=== PATIENT | female | born 1955 | race Caucasian/White ===

== ENCOUNTER → 2022-03-08 15:57 | Outpatient (CLI) | payer MEDICARE, SELFPAY ==
--- NOTE | ~2022-03-08 | XR_ITS ---
XR abdomen/kub 1V 03/08/2022 17:14 INDICATION: Constipation TECHNIQUE: KUB COMPARISON: None FINDINGS: Bowel gas pattern is normal. There are cholecystectomy clips. There are splenic arterial ca lcifications. Moderate colonic fecal loading. Mild lumbar spondylosis. There is no evidence of free a ir, mass, organomegaly, ascites or obstruction. No abnormal calculi are seen. The bones appear inta ct. IMPRESSION: 1: No acute abdominal abnormality identified. Reviewed, dictated and finalized at location A.
== END ==
DX: K59.00 Constipation, unspecified (principal)
CPT/HCPCS: 74018

== ENCOUNTER 2022-06-28 10:49 | Outpatient (CLI) | payer MEDICARE, SELFPAY ==
--- NOTE | ~2022-06-28 | XR_ITS ---
Left Shoulder Technique: AP and scapular Y and axillary views were obtained. Clinical History: Pain Findings: No fracture or dislocation is seen. Osseous alignment is anatomic. The glenohumeral and acr omioclavicular joint spaces are preserved. Soft tissues are unremarkable. Impression: Unremarkable left shoulder radiographs. Reviewed, dictated and finalized at [facility]. LCANIZER CHARGER Impression: Unremarkable left shoulder radiographs.
--- NOTE | ~2022-06-28 | XR_ITS ---
Lumbosacral Spine: AP and lateral views Clinical History: Pain Findings: The normal lordotic curve is maintained. The vertebral bodies and posterior elements are i ntact. The intervertebral disc spaces are preserved. The sacroiliac joints are normally outlined. Impression: No significant abnormality. Reviewed, dictated and finalized at [facility]. ILE PAD MECHANIC Impression: No significant abnormality.
--- NOTE | ~2022-06-28 | XR_ITS ---
Cervical Spine: AP, lateral, open-mouth views Clinical History: Pain Findings: The normal lordotic curve is maintained. Minimal grade 1 anterolisthesis of C4 over C5 pres ent. There are minimal degenerative disc changes throughout the cervical spine. Facet joint degenerat krystal changes are present, most notably at C3-C4 and C4-C5. No fracture identified. Pre-vertebral soft tissues are unremarkable. Impression: Mild degenerative spondylosis, as above. Minimal grade 1 anterolisthesis of C4 over C5. Reviewed, dictated and finalized at location M. HELP DESK OFFICER Impression: Mild degenerative spondylosis, as above. Minimal grade 1 anterolisthesis of C4 over C5.
--- NOTE | ~2022-06-28 | XR_ITS ---
Right Shoulder Technique: AP and scapular Y views were obtained. Clinical History: Pain Findings: No fracture or dislocation is seen. Osseous alignment is anatomic. The glenohumeral and acr omioclavicular joint spaces are preserved. Soft tissues are unremarkable. Impression: Unremarkable right shoulder radiographs. Reviewed, dictated and finalized at [facility]. LLIGENCE INTERN Impression: Unremarkable right shoulder radiographs.
--- NOTE | ~2022-06-28 | XR_ITS ---
Right Knee Technique: AP, lateral, and sunrise views were obtained. Clinical History: Pain Findings: No fracture or dislocation is seen. There is a lytic area at the posterior margin of the up per patella on the lateral view.. Soft tissues are unremarkable. No joint effusion is seen. Impression: Lytic area at the posterior aspect of the superior patella on lateral view. This is somewhat indeterm inate, but aggressive lesion cannot be excluded. Pre and postcontrast MR recommended to best assess t he underlying marrow signal characteristics and soft tissue structures in this region. Reviewed, dictated and finalized at location M. TENANCE DATA ANALYST Impression: Lytic area at the posterior aspect of the superior patella on lateral view. Thi s is somewhat indeterminate, but aggressive lesion cannot be excluded. Pre and postcontrast MR recommended to best assess the underlying marrow signal charact eristics and soft tissue structures in this region.
--- NOTE | ~2022-06-28 | XR_ITS ---
Thoracic spine: Clinical Indication: Back pain AP and lateral views were performed. No fracture is seen. There is normal alignment of the vertebrae. The intervertebral disc spaces appe ar normal. Paravertebral soft tissues appear normal. Impression: No significant abnormalities noted. Reviewed, dictated and finalized at [facility]. AL CONTROL LICENSING WORKER Impression: No significant abnormalities noted.
--- NOTE | ~2022-06-28 | XR_ITS ---
Left Knee Technique: AP and lateral views were obtained. Clinical History: Pain Findings: No fracture or dislocation is seen. Osseous alignment is anatomic. Joint spaces are preserv ed without degenerative or erosive change. Soft tissues are unremarkable. No joint effusion is seen. Impression: Unremarkable left knee radiographs. Reviewed, dictated and finalized at location . ANICS HANDYMAN Impression: Unremarkable left knee radiographs.
== END 2022-06-28 10:50 ==
LOC: MICIMG 10:52
PROVIDERS: PCP Family Medicine; Visit Provider Pain Medicine Interventional Pain Medicine
DX: E11.49 Type 2 diabetes mellitus with other diabetic neurological complication (principal); E11.59 Type 2 diabetes mellitus with other circulatory complications; F33.1 Major depressive disorder, recurrent, moderate; F41.1 Generalized anxiety disorder; M47.22 Other spondylosis with radiculopathy, cervical region
CPT/HCPCS: 72040; 72072; 72100; 73030; 73560

== ENCOUNTER 2022-06-28 11:51 | Outpatient (CLI) | payer MEDICARE, SELFPAY ==
--- NOTE | ~2022-06-28 | CT_ITS ---
EXAMINATION: CT sinus wo con DATE: 06/28/2022 12:12 INDICATION: Deviated nasal septum. TECHNIQUE: Computed tomography (CT) of the paranasal sinuses was performed without intravenous contra st. Iterative reconstruction technique was employed. The dose-length product was 288.85 mGy-cm. COMPARISON: Neck CT 07/18/2005 FINDINGS: The frontal sinuses are clear. There is mild mucosal thickening in the bilateral ethmoid si nuses. There are old blowout fractures of medial wall and floor of left orbit. The sphenoid sinuses a re clear. The maxillary sinuses are clear. The ostiomeatal units are widely patent. There is leftward deviation of the nasal septum. There are rightward and leftward spurs of the nasal septum. There is a 12 x 10 mm mass in superficial left parotid gland. IMPRESSION: 1. Leftward deviation of the nasal septum. 2. Mild mucosal thickening in the paranasal sinuses. 3. Old blowout fractures of medial wall and floor of left orbit. 4. 12 x 10 mm mass in superficial left parotid gland. The differential diagnosis includes benign mixe d tumor, Warthin tumor, reactive lymph node, and less likely primary malignancy. Reviewed, dictated and finalized at location A. RAM DIRECTOR AIR TALENT IMPRESSION: 1. Leftward deviation of the nasal septum. 2. Mild mucosal thickening in the paranasal sinuses. 3. Old blowout fractures of medial wall and floor of left orbit. 4. 12 x 10 mm mass in superficial left parotid gland. The differential diagnosi s includes benign mixed tumor, Warthin tumor, reactive lymph node, and less lik aurelio primary malignancy.
== END 2022-06-28 11:52 ==
LOC: MICIMG 11:53
PROVIDERS: PCP Otolaryngology; Visit Provider Otolaryngology
DX: N63.22 Unspecified lump in the left breast, upper inner quadrant (principal); Z80.41 Family history of malignant neoplasm of ovary; J34.2 Deviated nasal septum
CPT/HCPCS: 70486

== ENCOUNTER 2022-06-28 12:05 | Outpatient (CLI) | payer MEDICARE, SELFPAY ==
--- NOTE | ~2022-06-28 | MMUS_ITS ---
EXAMINATION: MM diagnostic zahida BI w nain, US breast BI limited HISTORY: Palpable left breast mass. TECHNIQUE: Additional 3-D tomosynthesis images of the breasts were performed and synthetic 2-D images were generated. CAD analysis was submitted and interpreted. High resolution limited bilateral breast ultrasound was performed. COMPARISON: None BREAST PARENCHYMAL COMPOSITION: Breast composed of scattered areas of fibroglandular density FINDINGS: MAMMOGRAPHIC FINDINGS: There are focal asymmetries laterally in the right breast on CC view. There are benign breast calcifi cations. There is a mass in the lower inner quadrant of the left breast corresponding to the area of palpable concern. ULTRASOUND: Limited right breast ultrasound: At 10:00, 3 cm from the nipple there is an irregular shaped hypoecho ic mass with angular margins measuring 4 x 3 x 3 mm. No internal vascularity. There is antiparallel c onfiguration. Limited left breast ultrasound: At 10:00, 7 cm from the nipple there is an oval hypoechoic mass with heterogeneous internal echotexture, parallel orientation, no posterior features and no internal vascu larity measuring 1.8 x 1.5 x 0.9 cm. IMPRESSION: 1. Abnormal bilateral breast masses. 2. Bilateral ultrasound-guided breast biopsy recommended. BI-RADS category 4, suspicious findings. Reviewed, dictated and finalized at location A. ETIC EVENTS SCORER IMPRESSION: 1. Abnormal bilateral breast masses. 2. Bilateral ultrasound-guided breast biopsy recommended. BI-RADS category 4, suspicious findings.
== END 2022-06-28 12:06 ==
LOC: MICIMG 12:07
PROVIDERS: PCP Pain Medicine Interventional Pain Medicine; Visit Provider Family Medicine
DX: N63.22 Unspecified lump in the left breast, upper inner quadrant (principal); Z80.41 Family history of malignant neoplasm of ovary; R92.8 Other abnormal and inconclusive findings on diagnostic imaging of breast
CPT/HCPCS: 76642; 77062; 77066; G0279

== ENCOUNTER 2022-10-31 12:01 | Inpatient (IN) | payer OTHER, SELFPAY ==
[2022-10-31] VITALS (20 sets, daily range): BP systolic 146–203; BP diastolic 43–87; PULSE 78–98; RESP 12–23; TEMP 36–37.8; O2SAT 90–100; BMI 23.4
--- NOTE | ~2022-10-31 | CT_ITS ---
EXAMINATION: CT brain wo con DATE: 10/31/2022 12:52 INDICATION: Seizure activity. TECHNIQUE: Computed tomography (CT) of the head was performed without intravenous contrast. The mA wa s adjusted according to patient size. Iterative reconstruction technique was employed. The dose-lengt h product was 605.33 mGy-cm. COMPARISON: None FINDINGS: There are scattered areas of low attenuation in the cerebral white matter. There is no intr acranial hemorrhage, acute infarction, or abnormal intracranial mass lesion. The ventricles are danial l in size. There are likely changes of ocular lens replacement surgeries. There is an old blowout fra cture of medial wall of left orbit. There is mild mucosal thickening in the ethmoid sinuses. The mast oid air cells are normal. IMPRESSION: 1. Moderate nonspecific cerebral white matter disease, which likely represents chronic small vessel i schemic disease. Reviewed, dictated and finalized at location A. IMPRESSION: 1. Moderate nonspecific cerebral white matter disease, which likely represents chronic small vessel ischemic disease.
--- NOTE | ~2022-10-31 | CT_ITS ---
EXAMINATION: CT abdomen pelvis w con DATE: 10/31/2022 13:51 INDICATION: Right abdominal pain. TECHNIQUE: Computed tomography (CT) of the abdomen and pelvis was performed with 100 mL Omnipaque 350 intravenous contrast. Automated exposure control and iterative reconstruction technique were employe d. The dose-length product was 732.40 mGy-cm. COMPARISON: None. FINDINGS: The visualized portions of the lung bases demonstrate mild atelectasis. No pleural effusion . Cardiomegaly is noted. There are coronary artery calcifications. No pericardial effusion. There are surgical clips in right breast. The liver and spleen are normal. There are surgical changes of nika cystectomy. The pancreas and adrenal glands are normal. There are cysts in the kidneys measuring up t o 12 mm on the right. There are vascular calcifications at the merly of the kidneys. There is a 2 mm s tone in right kidney. There is a peritoneal dialysis catheter in right lower quadrant. There is diver ticulosis of the colon without evidence of diverticulitis. The appendix is stool-filled with diameter of 12 mm. The are widespread arterial calcifications. The stomach is distended and contains fluid an d gas. There is wall thickening of the pylorus. There is free intraperitoneal gas and anterior body w all gas from the recent dialysis catheter placement. There are no pathologically enlarged lymph nodes . Superficial to the rectus abdominis muscles, there is a 3.9 x 2.1 x 0.5 cm thick-walled fluid colle ction with wall calcifications. There is no free intraperitoneal fluid. There is severe lower lumbar spondylosis. IMPRESSION: 1. Appendiceal diameter of 12 mm, which is indeterminate for appendicitis. Correlate with physical ex am. 2. Wall thickening of the pylorus of the stomach suspicious for inflammation. 3. Small fluid collection in anterior abdominal wall, likely a seroma or old hematoma. Reviewed, dictated and finalized at location A. IMPRESSION: 1. Appendiceal diameter of 12 mm, which is indeterminate for appendicitis. Ruddy elate with physical exam. 2. Wall thickening of the pylorus of the stomach suspicious for inflammation. 3. Small fluid collection in anterior abdominal wall, likely a seroma or old he matoma.
--- NOTE | 2022-10-31 12:03 | ECG_ITS ---
Measurements Intervals [place] Rate: 81 P: 58 NV: 190 QRS: 26 QRSD: 97 T: 69 QT: 389 QTc: 452 Interpretive Statements SINUS RHYTHM THE INFEROLATERAL ST AND T-WAVE ABNORMALITY, CONSIDER ISCHEMIA ABNORMAL ECG NO PREVIOUS ECG AVAILABLE FOR COMPARISON Electronically Signed On 11-06-2022 12:06:09 CDT by Ramírez Motley M.D.
--- NOTE | 2022-10-31 12:17 | ED.SEIZURE ---
HPI - Seizure General Chief Complaint: Seizure Stated Complaint: seizure Time Seen by Provider: 10/31/22 12:02 History of Present Illness HPI Narrative: Patient is a 67-year-old female with a history of ESRD on dialysis presenting with vomiting and altered mental status. Patient's is at bedside and helps with the history. States that she has been very busy this last month with doctors appointments. States that she recently had a new peritoneal dialysis catheter placed at [facility]. States this was 2 days ago. Since that time she has had worsening right-sided abdominal pain. States that she has also been having coffee-ground emesis. States that she will just randomly vomit black matter. States that she saw one of her doctors yesterday who ordered an EGD which will not be done until January. This morning they were getting ready to go to dialysis when the patient became less responsive and generally weak. She had an episode of urinary incontinence. No witnessed seizure activity. No headaches or fevers, chest pain, shortness of breath, diarrhea, dysuria, leg swelling. States that she does have a chronic cough. Related Data Home Medications Medication Instructions Recorded Confirmed allopurinol 100 mg tablet 100 mg PO DAILY 11/01/22 11/01/22 alprazolam 0.5 mg tablet 0.5 mg PO QID PRN Anxiety 11/01/22 11/01/22 amantadine HCl 100 mg capsule 100 mg PO DAILY 11/01/22 11/01/22 apixaban 5 mg tablet (Eliquis) 5 mg PO BID 11/01/22 11/01/22 atorvastatin 40 mg tablet 40 mg PO HS 11/01/22 11/01/22 clonidine HCl 0.1 mg tablet 0.1 mg PO TID 11/01/22 11/01/22 docusate sodium 250 mg capsule 250 mg PO DAILY 11/01/22 11/01/22 ferric citrate 210 mg iron tablet 2 tablet PO BIDWM 11/01/22 11/01/22 (Auryxia) ferric citrate 210 mg iron tablet 3 tablet PO TIDWM 11/01/22 11/01/22 (Auryxia) fluticasone propionate 50 1 spray intranasal DAILY 11/01/22 11/01/22 mcg/actuation nasal spray,suspension folic acid 400 mcg tablet 0.4 mg PO DAILY 11/01/22 11/01/22 furosemide 80 mg tablet See Rx Instructions .Route .COMPLEX 11/01/22 11/01/22 gentamicin 0.1 % topical cream 1 applic topical DAILY 11/01/22 11/01/22 hydralazine 100 mg tablet 100 mg PO TID 11/01/22 11/01/22 hydrocodone 10 mg-acetaminophen 1 tablet PO QID PRN Pain 11/01/22 11/01/22 325 mg tablet lamotrigine 150 mg tablet 150 mg PO Q12H 11/01/22 11/01/22 levetiracetam 750 mg tablet 750 mg PO BID 11/01/22 11/01/22 losartan 50 mg tablet 50 mg PO DAILY 11/01/22 11/01/22 montelukast 10 mg tablet 10 mg PO 1700 11/01/22 11/01/22 nifedipine 30 mg tablet,extended 30 mg PO DAILY 11/01/22 11/01/22 release 24 hr pregabalin 50 mg capsule 50 mg PO BID 11/01/22 11/01/22 ropinirole 0.5 mg tablet 0.5 mg PO BID 11/01/22 11/01/22 ropinirole 0.5 mg tablet 1.5 mg PO HS 11/01/22 11/01/22 tizanidine 4 mg tablet 4 mg PO BID PRN Muscle Spasm 11/01/22 11/01/22 vortioxetine 10 mg tablet 10 mg PO DAILY 11/01/22 11/01/22 (Trintellix) Allergies Allergy/AdvReac Type Severity Reaction Status Date / Time NSAIDS (Non-Steroidal Allergy Other Verified 10/31/22 23:56 Anti-Inflamma Review of Systems Review of Systems: All systems reviewed & are unremarkable except as noted in HPI and below PMFSH Past Medical History Medical History (Updated 11/02/22 @ 13:34 by Jacqueline Foster MD) Acute on chronic anemia Altered mental status Anxiety and depression Breast cancer End stage renal disease Hypertension Neuropathy Paroxysmal A-fib Tardive dyskinesia Surgical History Surgical History (Updated 11/02/22 @ 01:25 by Julienne Caceres MD) H/O cardiac radiofrequency ablation H/O lumpectomy History of appendectomy Hx of cholecystectomy S/P dialysis catheter insertion Family History Family History Daughter Precancerous changes of the cervix Pancreatitis Daughter Colon cancer Precancerous changes of the cervix Unknown Diabet
[2022-10-31 13:01] LABS: Basophils Absolute Auto 0.1 K/mm3 (0.0-0.1); Basophils Percent Auto 0.8 % (0.2-1.2); Eosinophils Percent Auto 0.3 % (0-4.4); Immature Granulocyte Absolute 0.02 K/mm3 (0.00-0.031); Immature Granulocyte Percent A 0.3 % (0-0.5); Lymphocytes Absolute Auto 1.15 K/mm3 (0.9-3.2); Lymphocytes Percent Auto 17.9 % (18.3-44.2); Mean Corpuscular Hemoglobin 30.2 pg (26-34); Mean Corpuscular Volume 94.4 fl (80-100); Mean Platelet Volume 11.2 fl (7.4-10.4); Monocytes Absolute Auto 0.7 K/mm3 (0.1-0.6); Monocytes Percent Auto 10.1 % (2.6-8.5); Neutrophils Absolute Auto 4.5 K/mm3 (1.3-6.7); Neutrophils Percent Auto 70.6 % (45.5-73.1); Platelet Count Result 148 k/mm3 (150-375); Red Blood Count 2.15 M/mm3 (4.2-5.4); Red Cell Distribution Width 14.6 % (11.5-14.5); White Blood Count 6.4 K/mm3 (4.5-10.0)
[2022-10-31 13:12] LABS: Hemoglobin 6.5 g/dL (12.0-15.0)
[2022-10-31 13:13] LABS: Hematocrit 20.3 % (37.0-47.0)
[2022-10-31 13:14] LABS: Alanine Aminotransferase 11 U/L (6-35); Albumin Level 3.1 g/dL (3.5-5.1); Alkaline Phosphatase 95 U/L (38-126); Aspartate Amino Transferase 16 U/L (14-36); Bilirubin,Total 0.4 mg/dL (0.2-1.3); Blood Urea Nitrogen 101 mg/dL (7-17); Calcium 9.4 mg/dL (8.4-10.2); Carbon Dioxide > 40 mmol/L (22-30); Chloride 85 mmol/L (98-107); Estimated Glomerular Filt Rate 5; Glucose 214 mg/dL (65-110); Lipase 49 U/L (23-300); Magnesium 2.6 mg/dL (1.6-2.3); Potassium 3.9 mmol/L (3.4-5.0); Sodium 140 mmol/L (137-145)
[2022-10-31 13:17] LABS: Lactic Acid Reflex 2.6 mmol/L (0.7-2.0)
[2022-10-31] MEDS: fentaNYL CITRATE INJ (*CRX) 100 MCG/2 ML VIAL 50 MCG IV PUSH (13:26)
[2022-10-31] MEDS: PANTOPRAZOLE SODIUM IV 40 MG VIAL 80 MG IV PUSH (13:26)
[2022-10-31 13:35] LABS: INR 1.6; Prothrombin Time 19.6 Seconds (11.1-14.7)
[2022-10-31 13:36] LABS: Partial Thromboplastin Time 33.5 SECONDS (22.3-36.8)
--- NOTE | 2022-10-31 13:38 | PC.NURSE ---
patient to CT at this time.
[2022-10-31 14:31] LABS: Appearance Urine Clear (Clear); Bacteria Urine None Seen /hpf; Bilirubin Urine Negative (Negative); Blood Urine Negative (Negative); Color Urine Yellow (Yellow); Glucose Urine UA Trace mg/dL (Negative); Ketones Urine Negative (Negative); Leukocyte Esterase Ur Negative LEU/UL (Negative); Need Manual Microscopic Reviewed; Nitrate Urine Negative (Negative); Protein Urine 4+ mg/dL (Negative); Specific Grav Ur 1.015 (1.001-1.035); Squamous Epithelial Cell Urine None seen /hpf (Few); Urobilinogen Urine 0.2 mg/dL (<2.0); WBC Urine 0-5 /hpf; pH Urine >=9.0 (5.0-9.0)
[2022-10-31 14:32] LABS: Add Urine Microscopic? YES
[2022-10-31 14:33] LABS: Amphetamine Screen Urine Negative (Negative); Barbiturate Screen Urine Negative (Negative); Benzodiazepines Screen Urine Negative (Negative); Cannabinoid Screen Urine Negative (Negative); Cocaine Screen Urine Negative (Negative); Methadone Screen Urine Negative (Negative); Opiate Screen Urine Negative (Negative); Phencyclidine Screen Urine Negative (Negative)
[2022-10-31] MEDS: SODIUM CHLORIDE 0.9% IV 250 ML 30 ML IV CONT (15:27)
[2022-10-31] MEDS: TUBING, BLOOD PLUM PUMP TUBING 1 EACH XX (15:28)
[2022-10-31 16:01] LABS: Reflex Lactic Acid Yes or No Add Lactic
--- NOTE | 2022-10-31 16:01 | PM.IMHP ---
H&P: HPI History of Present Illness Date/Time: 10/31/22 16:01 Chief Complaint: Right lower quadrant pain Narrative: Patient is a 67-year-old woman who has end-stage renal disease and is on hemodialysis. She came to the emergency room with abdominal pain, vomiting, blackened emesis, and mental status changes. I spoke with the emergency room physician and read her note. Patient told me that her peritoneal dialysis catheter was placed at [facility] at least 2 or more weeks ago. It was not as much placed as it was repositioned. She has had abdominal pain since the procedure. It has gotten worse in the last couple of days and associated with the vomiting. She came to the emergency room for evaluation. Her history is clearly impaired by some memory and articulation issues. She is anemic, even for a patient with end-stage renal disease, with H&H of 20.3/6.5. She has blood transfusing in the emergency room as I saw her. Her white blood cell count was normal. Her pain is mostly in the right lower quadrant. She had a CT scan of the abdomen and pelvis that showed a 12 mm appendix but not much in the way of periappendiceal inflammation. I reviewed her CT scan independently, and her peritoneal dialysis catheter is also in the right lower quadrant. Typically this is placed in the pelvis so I am not sure if it migrated or if there are pelvic adhesions that made the catheter unsuitable for the typical location. Her exam showed severe tenderness with guarding in the right lower quadrant. She is admitted now with plans to go to surgery for laparoscopic appendectomy. Review of Systems Review of Systems: ROS unobtainable: Yes unobtainable due to mental status Meds Home Medications and Allergies Allergies Allergy/AdvReac Type Severity Reaction Status Date / Time NSAIDS (Non-Steroidal Allergy Other Verified 10/31/22 12:11 Anti-Inflamma Vital Signs Vital Signs - 24 hr 10/31/22 11:59 10/31/22 12:10 10/31/22 12:15 Temperature 37.2 C Pulse Rate 80 79 81 Respiratory Rate 16 12 17 Blood Pressure 146/82 H Pulse Oximetry 94 Oxygen Delivery Room Air 10/31/22 12:30 10/31/22 13:26 10/31/22 13:47 Temperature Pulse Rate 83 85 Respiratory Rate Blood Pressure Pulse Oximetry 100 Oxygen Delivery 10/31/22 14:00 10/31/22 14:01 10/31/22 15:24 Temperature 36.5 C Pulse Rate 80 81 79 Respiratory Rate 20 20 Blood Pressure 156/54 H 180/64 H Pulse Oximetry 92 90 99 Oxygen Delivery 10/31/22 15:40 Temperature 36.4 C Pulse Rate 78 Respiratory Rate 16 Blood Pressure 164/57 H Pulse Oximetry 96 Oxygen Delivery Exam Const: General: comfortable, no acute distress, confusion, lethargic and tired appearing Nutritional Appearance: average body habitus Orientation/consciousness: lethargic HENMT: Head: normocephalic and atraumatic Mouth: Yes Normal oral and palatal mucosa present Eyes: Conjunctivae: conjunctivae normal Pupils: Equal, round and reactive pupils present EOM: EOMs intact bilaterally Neck: Neck: normal visual inspection, no lymphadenopathy and nontender Resp: Effort & Inspection: normal respiratory effort Auscultation: clear to auscultation bilaterally Cardio: Rate: regular rate Rhythm: regular rhythm Heart sounds: no gallops, no murmurs and no rubs GI: Inspection: abdominal wall ecchymosis, non-distended, incision (Periumbilical), no visible herniation and other (Peritoneal dialysis catheter exiting left upper quadrant) GI Palp: Yes Soft to palpation, Yes Tenderness to palpation present (GI) (Exquisite right lower quadrant tenderness with guarding), Yes Guarding due to palpation present (GI), No Hepatomegaly present, No Splenomegaly present, No Hernia present and No Palpable mass present Auscultation: Hypoactive bowel sounds present Skin: Lesions: no lesions Rashes: no rashes Neuro: General: no focal motor deficits and CN's II-XI intact bilaterally Cranial nerves: Yes Eq
[2022-10-31] MEDS: SODIUM CHLORIDE 0.9% IV 500 ML 30 ML IV CONT (16:20)
--- NOTE | 2022-10-31 16:26 | WPDHPUPDATE1 ---
History and Physical Update Update Date/Time: 10/31/22 16:26 History and Physical has been reviewed, including an updated exam of the patient. There are NO changes in the patient's condition. Risks, benefits, and alternatives have been discussed and questions answered. Patient agrees to proceed with procedure.
--- NOTE | 2022-10-31 16:39 | WPDANESEPPF ---
Anes - Initial Pre Proc Eval Procedure: Operation Date: 10/31/22 16:00 Proposed Procedures p Laparoscopic Appendectomy - Vinicio Pozo MD Date/Time: 10/31/22 16:39 Surgeon: Vinicio Pozo MD Pre Op Diagnosis: seizure Patient Data Age: 67 Gender: F Height: Weight: 81.82 kg Last Vital Signs Temp 36.4 C 10/31/22 15:40 Pulse 78 10/31/22 15:40 Resp 16 10/31/22 15:40 BP 164/57 H 10/31/22 15:40 Pulse Ox 96 10/31/22 15:40 O2 Del Method Room Air 10/31/22 11:59 Allergies Allergy/AdvReac Type Severity Reaction Status Date / Time NSAIDS (Non-Steroidal Allergy Other Verified 10/31/22 12:11 Anti-Inflamma Laboratory Tests 10/31/22 10/31/22 10/31/22 12:43 12:45 12:58 WBC 6.4 K/mm3 (4.5-10.0) RBC 2.15 L M/mm3 (4.2-5.4) Hgb 6.5 L* g/dL (12.0-15.0) Hct 20.3 L* % (37.0-47.0) MCV 94.4 fl (80-100) MCH 30.2 pg (26-34) MCHC 32.0 g/dl (32-36) RDW 14.6 H % (11.5-14.5) Plt Count 148 L k/mm3 (150-375) MPV 11.2 H fl (7.4-10.4) Immature Gran % (Auto) 0.3 % (0-0.5) Neut % (Auto) 70.6 % (45.5-73.1) Lymph % (Auto) 17.9 L % (18.3-44.2) [place] % (Auto) 10.1 H % (2.6-8.5) Eos % (Auto) 0.3 % (0-4.4) Baso % (Auto) 0.8 % (0.2-1.2) Lymph # (Auto) 1.15 K/mm3 (0.9-3.2) [place] # (Auto) 0.7 H K/mm3 (0.1-0.6) Eos # (Auto) 0.0 K/mm3 (0-0.3) Baso # (Auto) 0.1 K/mm3 (0.0-0.1) Abs Immat Gran (auto) 0.02 K/mm3 (0.00-0.031) Absolute Neuts (auto) 4.5 K/mm3 (1.3-6.7) Absolute Nucleated RBC 0.0 K/mm3 (0.0-0.012) Nucleated RBC % 0.0 % (0.0-0.2) PT 19.6 H Seconds (11.1-14.7) INR 1.6 APTT 33.5 SECONDS (22.3-36.8) Sodium 140 mmol/L (137-145) Potassium 3.9 mmol/L (3.4-5.0) Chloride 85 L mmol/L (98-107) Carbon Dioxide > 40 H mmol/L (22-30) Anion Gap mmol/L (8-16) BUN 101 H mg/dL (7-17) Creatinine 7.40 H mg/dL (0.7-1.0) Estim Creat Clear Calc Not Reportable Estimated GFR 5 L (59 - ) Glucose 214 H mg/dL (65-110) Lactic Acid 2.6 H mmol/L (0.7-2.0) Calcium 9.4 mg/dL (8.4-10.2) Magnesium 2.6 H mg/dL (1.6-2.3) Total Bilirubin 0.4 mg/dL (0.2-1.3) AST 16 U/L (14-36) ALT 11 U/L (6-35) Alkaline Phosphatase 95 U/L (38-126) Total Protein 5.0 L g/dL (6.3-8.2) Albumin 3.1 L g/dL (3.5-5.1) Lipase 49 U/L (23-300) Urine Color Urine Appearance Urine pH Ur Specific [place] Urine Protein Urine Glucose (UA) Urine Ketones Ur Blood (Man) Urine Nitrate Urine Bilirubin Urine Urobilinogen Add Ur Microanalysis Leukocyte Esterase Rfl Urine RBC Urine WBC Ur Squamous Epith Cells Urine Bacteria Urine Casts Urine Opiates Screen Urine Methadone Screen Ur Barbiturates Screen Ur Phencyclidine Scrn Ur Amphetamine Screen U Benzodiazepines Scrn Urine Cocaine Screen U Cannabinoids Screen Blood Type Antibody Screen Crossmatch 10/31/22 10/31/22 13:22 14:11 WBC RBC Hgb Hct MCV MCH MCHC RDW Plt Count MPV Immature Gran % (Auto) Neut % (Auto) Lymph % (Auto) [place] % (Auto) Eos % (Auto) Baso % (Auto) Lymph # (
[2022-10-31] MEDS: ceFAZolin 2 GM/D5W 50 ML 2 GM/50 ML BAG IVPB (16:52)
[2022-10-31] MEDS: BUPIVACAINE/EPINEPHRINE 0.5% 50 ML VIAL INFILTRATE (17:27)
--- NOTE | 2022-10-31 18:13 | W.PM.PROC2 ---
Procedure Note - Detailed Date of Procedure 10/31/22 Pre-op Diagnosis Right lower quadrant abdominal pain, abnormal CT scan abdomen Post-op Diagnosis Other (Dilated appendix, adhesions, dysfunction peritoneal dialysis catheter) Procedure Performed Laparoscopic appendectomy, laparoscopic adhesiolysis, laparoscopic revision peritoneal dialysis catheter Surgeon Vinicio Pozo MD Electrical Systems Design Engineer [facility] Anesthesia General and Local (0.5% Marcaine with epinephrine) Indications Patient presented to the emergency room with abdominal pain, vomiting coffee-ground emesis, mental status changes, anemia, and history of fairly recent revision of peritoneal dialysis catheter. Her exam showed tenderness in the right lower quadrant and CT scan showed a dilated appendix of 12 mm. Her PD catheter was also noted to be in the right lower quadrant. There was no signs of inflammation associated with the dilated appendix but the risk of appendicitis or appendiceal rupture with the neighboring catheter is serious and she is taken to surgery now expeditiously for appendectomy. Findings The appendix was dilated but did not appear to be inflamed. Prior to removal of the appendix I took down anterior abdominal wall adhesions associated with the peritoneal dialysis catheter entry point. There was a blood tinged fibrotic capsule around the peritoneal dialysis catheter as well. There were omental adhesions around the entry point of the peritoneal dialysis catheter in the abdomen. The into the catheter was trapped in the anterior abdominal wall predominantly on the left side. This was unusual as on CT it appeared to be in the right lower quadrant. No intra-abdominal source of infection was noted. Patient had nasogastric tube placed while under anesthesia. This drained thick black fluid consistent with old blood. NG tube was left in place following the surgery. Description of Procedure Patient was taken to surgery and induced into general anesthesia. The abdomen was prepped. With the PD catheter in the left mid abdomen, we covered that with a sterile towel and placed I a band over the entire abdomen to quarantine the external catheter from the surgical procedure. Local anesthetic was infiltrated prior to placement of each of the trocars. A left-sided epigastric 5 mm applied Medical optical trocar was placed 1st under direct visualization. Once the intraperitoneal location was established, we insufflated and then placed another 5 mm port in the left mid abdomen and a 10 11 port in the left lower quadrant. Patient was placed in Trendelenburg with the right-side elevated. The appendix was found and was easily elevated. It was clearly not inflamed or had signs of appendicitis. It was dilated. To avoid contaminating the peritoneal dialysis catheter, I then set about and freed some dense somewhat bloody omental adhesions to the anterior abdominal wall around the entry point of the peritoneal dialysis catheter. Cautery was used for hemostasis. No bowel was involved in these adhesions. There was a bloody fibrotic capsule around the peritoneal dialysis catheter. This was dissected off the catheter and removed. I then was able to place traction on the catheter and extended it so that it would lay in the pelvis in the midline. We turned our attention back to the appendix. The appendix was elevated and using cautery and sharp dissection adhesions to the appendix were taken down. The mesoappendix was exposed. Cautery was used to divide the appendiceal vessels. I skeletonized the appendix at its base. The appendix was ligated at its base. The appendix was ligated with a Vicryl endoloop. I then amputated the appendix just above the ligature and cauterized the appendiceal stump thoroughly. The appendix was were in immediately removed from the peritoneal cavity in an Endo-Catch bag. Once removed, we replaced the 10 11 left lower quadrant trocar and reviewed the appendiceal stump and
--- NOTE | 2022-10-31 18:14 | ECG_ITS ---
Measurements Intervals [employer] Rate: 77 P: 56 NH: 199 QRS: -13 QRSD: 100 T: 99 QT: 405 QTc: 460 Interpretive Statements SINUS RHYTHM ST DEVIATION AND MODERATE T-WAVE ABNORMALITY, CONSIDER LATERAL ISCHEMIA [-0.1+ mV T WAVE IN I/aVL/V5/V6] NO PREVIOUS ECG AVAILABLE FOR COMPARISON Electronically Signed On 11-01-2022 13:36:06 CDT by Haylee Vargas M.D.
[2022-10-31 18:21] LABS: Glucose Point of Care 178 mg/dl (65-105)
[2022-10-31 19:17] LABS: Glucose Point of Care 186 mg/dl (65-105)
--- NOTE | 2022-10-31 20:21 | PM.IMHP ---
H&P: HPI History of Present Illness Date/Time: 10/31/22 20:21 Chief Complaint: Seizure Narrative: this is a 67-year-old female patient who has end-stage renal disease and is on dialysis. The patient has not been receiving her dialysis treatment as she should be. The patient has missed at least 2 dialysis treatments. The patient recently had a new peritoneal dialysis catheter placed at [facility]. The patient had been on dialysis Friday and was going to transition to peritoneal dialysis. The patient was then switched to Friday. However the patient has not had any dialysis this last week. The patient has been vomiting black matter. The patient stated that she saw a new doctor yesterday who ordered an EGD that would not be done until January. The patient was getting ready for dialysis today and became less responsive and had generalized weakness. She also had a urinary incontinence. There was no witnessed seizure activity. The patient denied any fever chills. The patient stated that she just had severe abdominal pain. Her H&H was found to be 6.5 and 20.4 today. The patient did receive a unit of blood and surgery. Abdominal pelvis CT was read as the following. Appendiceal diameter of 12 mm, which is indeterminate for appendicitis. Correlate with physical exam. 2. Wall thickening of the pylorus of the stomach suspicious for inflammation. 3. Small fluid collection in anterior abdominal wall, likely a seroma or old hematoma. head CT was read as a following. Moderate nonspecific cerebral white matter disease, which likely represents chronic small vessel ischemic disease. surgery was notified and she was taken to surgery. Please see operative report per Dr. Pozo. The patient had a laparoscopic appendectomy, laparoscopic adhesiolysis, laparoscopic revision of peritoneal dialysis catheter. Her platelets only 141. BUN is 101 creatinine 7.4. Glucose 214 and then 186. Lactic acid 2.6. Dr. Messina, Dr. Pozo and Dr. Caceres have been consulted.The patient is being admitted to inpatient status on the date of service is 10/31/2022 Review of Systems Review of Systems: All systems reviewed & are unremarkable except as noted in HPI and below Constitutional: Constitutional: Reports as per HPI and Reports no additional constitutional complaints Eyes: Eyes: Reports as per HPI and Reports no additional eye complaints ENT: Reports system reviewed and no additional complaints, except as documented and Reports Normal hearing present Cardiovascular: Cardiovascular: Reports no additional cardiovascular complaints Respiratory: Respiratory: Reports no additional respiratory complaints and Reports no additional respiratory complaints Gastrointestinal: Gastrointestinal: Reports as per HPI and Reports no additional gastrointestinal complaints Musculoskeletal: Musculoskeletal: Reports no additional musculoskeletal complaints Integumentary/Breasts: Skin/Breast: Reports system reviewed and no additional complaints, except as docu and Reports as per HPI Neurologic: Reports system reviewed and no additional complaints, except as documented, Reports as per HPI and Reports Normal hearing present Psychiatric: Psychiatric: Reports no additional psychiatric complaints and Reports as per HPI Endocrine: Endocrine: Reports no additional endocrine complaints Hematologic/Lymphatic: Hematologic/Lymphatic: Reports no additional hematologic/lymphatic complaints Allergic/Immunologic: Allergic/Immunologic: Reports no additional allergic/immunologic complaints PMF Past Medical History Medical History (Updated 11/01/22 @ 03:27 by Shabana Crabtree NP) Altered mental status Anxiety and depression Breast cancer End stage renal disease Hypertension Neuropathy Paroxysmal A-fib Tardive dyskinesia Surgical History Surgical History (Updated 11/01/22 @ 03:38 by Shabana Crabtree NP) H/O cardiac radiofrequency
[2022-10-31] MEDS: fentaNYL CITRATE INJ (*CRX) 100 MCG/2 ML VIAL 12.5 MCG IV PUSH (20:31)
[2022-10-31] MEDS: PANTOPRAZOLE SODIUM IV 40 MG VIAL IV PUSH (20:32)
--- NOTE | 2022-10-31 21:00 | ADMGEN ---
This patient, Yasmin Colbert, was admitted to IMU Room 204-01. Patient/family oriented to hospital policies and general routines including ID bracelet, bed and alarms, visiting hours, pain management, procedures, bathroom and other care routines, personal items, smoking policy, room service/diet, and visiting hours. Information on how to activate the Rapid Response Team has been discussed. Patient/Family are encouraged to report perceived risks to care and to ask questions if they do not understand what they are told or what they should do.
[2022-10-31] MEDS: fentaNYL CITRATE INJ (*CRX) 100 MCG/2 ML VIAL 25 MCG IV PUSH (23:38)
[2022-11-01] VITALS (36 sets, daily range): BP systolic 74–200; BP diastolic 46–162; PULSE 56–101; RESP 12–24; TEMP 35.8–37.5; O2SAT 93–97; BMI 23.4
[2022-11-01 00:15] LABS: Hematocrit 20.4 % (37.0-47.0); Hemoglobin 6.5 g/dL (12.0-15.0)
[2022-11-01] MEDS: SODIUM CHLORIDE 0.9% IV 250 ML 30 ML IV CONT ×2 (02:02→04:05)
[2022-11-01] MEDS: fentaNYL CITRATE INJ (*CRX) 100 MCG/2 ML VIAL 25 MCG IV PUSH (04:19)
--- NOTE | 2022-11-01 06:23 | WPDGICN ---
Assessment and Plan Assessment and plan (1) Hematemesis: Code(s): K92.0 - Hematemesis Status: Acute Assessment and Plan: she has had intermittent vomiting for the past 6-8 months usually bringing up what looks like coffee-ground material. (2) End stage renal disease: Code(s): N18.6 - End stage renal disease Status: Chronic Assessment and Plan: She has been on hemodialysis and was supposed to be starting peritoneal dialysis but the catheter malfunctioned and was not in a satisfactory location requiring surgery last night. Consequently, she has not had dialysis for several days. (3) Anemia: Code(s): D64.9 - Anemia, unspecified Status: Acute Assessment and Plan: Hemoglobin was 6.5 at admission, And is unchanged today. Although she has chronic kidney disease, I am certain that some of this anemia is due to her apparent gastrointestinal blood loss. (4) S/P dialysis catheter insertion: Code(s): Z95.828 - Presence of other vascular implants and grafts; Z99.2 - Dependence on renal dialysis Status: Acute Assessment and Plan: She has had 2 attempts at placement of the catheter which were not quite successful. Dr. Pozo corrected this situation last night, apparently the tip of the catheter was embedded in scar tissue and not free in the peritoneum (5) Abnormal weight loss: Code(s): R63.4 - Abnormal weight loss Status: Acute Assessment and Plan: she states that she has lost about 100 lb in the past year due to the fact that she is unable to eat. She did see a doctor in [place] who will arrange for her have an EGD but it could not be scheduled until January Plan I had a long discussion with her family member. We need to investigate the weight loss, vomiting, and anemia. I will start with EGD to be done today. I suspect she will be having dialysis and so therefore we will need to coordinate that GI Consult Note Consult date/time: 11/01/22 06:23 HPI: Yasmin Colbert is a 67 year old female who presented to the emergency room yesterday with complaints of altered mental status, severe right lower quadrant pain, weight loss, and chronic vomiting. She is a dialysis patient on chronic hemodialysis. She being converted to peritoneal dialysis. For that reason she had a dialysis catheter placed couple weeks ago that apparently was in the wrong position. Three days ago it was again replaced in the right lower quadrant at [facility]. She has had severe pain since then. She went to surgery last night and Dr. Pozo found that the catheter had been actually embedded in scar tissue and not in the peritoneal cavity. It was also feared that she had appendicitis because of the findings on CT scan. She therefore underwent appendectomy as well. This morning she is extremely thirsty but but apparently is improved in terms of her mental status. Her daughter states that she was very confused on admission. The patient is able to give me some history. She states that she has been vomiting for several months. Her daughter new that this was probably blood because she had gone to the same thing herself. Also the patient has lost about 100 lb in the past year. She is able to eat only couple of bites before she gets full. She states that there has not yet been any investigation for that except that it was mentioned that they might get a gastric emptying scan. She is profoundly anemic. Hemoglobin was 6.5. She is also on Eliquis . she denies seeing blood her stools. Review of Systems Review of Systems: All systems reviewed & are unremarkable except as noted in HPI and below PMFSH Past Medical History Medical History Altered mental status Anxiety and depression Breast cancer End stage renal disease Hypertension Neuropathy Paroxysmal A-fib Tardive dyskinesia Surgical History S
--- NOTE | 2022-11-01 06:55 | PHAR ---
HOME MED (Vortioxetine [Trintellix] 10 mg tablet) AND Auryxia 210mg tablets varified in pharmacy and sent back to IMU
[2022-11-01 07:58] LABS: Basophils Absolute Auto 0.1 K/mm3 (0.0-0.1); Basophils Percent Auto 0.5 % (0.2-1.2); Eosinophils Absolute Auto 0.1 K/mm3 (0-0.3); Hematocrit 26.5 % (37.0-47.0); Hemoglobin 8.8 g/dL (12.0-15.0); Immature Granulocyte Absolute 0.06 K/mm3 (0.00-0.031); Immature Granulocyte Percent A 0.6 % (0-0.5); Lymphocytes Absolute Auto 1.71 K/mm3 (0.9-3.2); Lymphocytes Percent Auto 18.1 % (18.3-44.2); Mean Corpuscular HGB Conc 33.2 g/dl (32-36); Mean Corpuscular Hemoglobin 29.9 pg (26-34); Mean Corpuscular Volume 90.1 fl (80-100); Mean Platelet Volume 10.4 fl (7.4-10.4); Monocytes Absolute Auto 1.1 K/mm3 (0.1-0.6); Monocytes Percent Auto 12.1 % (2.6-8.5); Neutrophils Absolute Auto 6.4 K/mm3 (1.3-6.7); Neutrophils Percent Auto 67.7 % (45.5-73.1); Platelet Count Result 119 k/mm3 (150-375); Red Blood Count 2.94 M/mm3 (4.2-5.4); White Blood Count 9.5 K/mm3 (4.5-10.0)
[2022-11-01 08:07] LABS: Glucose Point of Care 191 mg/dl (65-105)
[2022-11-01 08:08] LABS: Alanine Aminotransferase 9 U/L (6-35); Albumin Level 2.9 g/dL (3.5-5.1); Alkaline Phosphatase 87 U/L (38-126); Aspartate Amino Transferase 16 U/L (14-36); Bilirubin,Total 0.5 mg/dL (0.2-1.3); Calcium 9.5 mg/dL (8.4-10.2); Carbon Dioxide > 40 mmol/L (22-30); Chloride 88 mmol/L (98-107); Estimated CRCL calculation 10 ml/min; Estimated Glomerular Filt Rate 5; Glucose 180 mg/dL (65-110); Magnesium 2.7 mg/dL (1.6-2.3); Potassium 4.6 mmol/L (3.4-5.0); Sodium 139 mmol/L (137-145)
[2022-11-01 08:24] LABS: Blood Urea Nitrogen 127 mg/dL (7-17)
[2022-11-01] MEDS: FUROSEMIDE 80 MG TABLET BY MOUTH (08:30)
[2022-11-01] MEDS: PANTOPRAZOLE SODIUM IV 40 MG VIAL IV PUSH ×2 (08:43→20:40)
[2022-11-01] MEDS: levETIRAcetam 250 MG TABLET 750 MG PO ×2 (08:43→20:40)
[2022-11-01] MEDS: cloNIDine HCL 0.1 MG TABLET PO ×2 (08:43→17:29)
[2022-11-01] MEDS: rOPINIRole HCL 0.5 MG TABLET PO ×2 (08:43→17:29)
[2022-11-01] MEDS: lamoTRIgine 50 MG TABLET PO ×2 (08:44→20:40)
[2022-11-01] MEDS: FOLIC ACID 0.4 MG TABLET PO (08:44)
[2022-11-01] MEDS: DOCUSATE SODIUM 100 MG CAPSULE 200 MG PO (08:44)
[2022-11-01] MEDS: lamoTRIgine 100 MG TABLET PO ×2 (08:44→20:41)
[2022-11-01] MEDS: NIFEdipine 30 MG TAB.ER.24 PO (08:44)
[2022-11-01] MEDS: hydrALAZINE HCL 50 MG TABLET 100 MG PO ×2 (08:44→17:29)
[2022-11-01] MEDS: AMANTADINE HCL 100 MG CAPSULE PO (08:45)
[2022-11-01] MEDS: LOSARTAN POTASSIUM 50 MG TABLET PO (08:45)
[2022-11-01] MEDS: allopurinoL 100 MG TABLET PO (08:46)
[2022-11-01] MEDS: GENTAMICIN SULFATE 0.1% CR 15 GM TUBE 1 APPLIC TOPICAL (08:46)
[2022-11-01 09:50] LABS: Hepatitis B Surface Antigen Negative (Negative)
[2022-11-01 09:56] LABS: HAV RESULT Negative (Negative); Hepatitis B Core IgM Result Negative (Negative)
[2022-11-01 10:11] LABS: Hepatitis B Surface Anti Res Positive; Hepatitis C Virus Antibody Negative (Negative)
--- NOTE | 2022-11-01 12:00 | PM.CNNEP ---
Assessment and Plan Assessment and plan (1) End stage renal disease: Code(s): N18.6 - End stage renal disease Status: Chronic Assessment and Plan: HD today (last dialysis treatment was on Friday) plan HD tomorrow to get back on outpatient schedule of T/T/S follow electrolytes, volume status, and clearance re-attempt peritoneal dialysis once abdomen heals (2) S/P appendectomy: Code(s): Z90.49 - Acquired absence of other specified parts of digestive tract Status: Acute Assessment and Plan: s/p laparoscopic appendectomy and adhesiolysis s/p revision of peritoneal dialysis catheter as well postop care as outlined by Surgery (3) Hematemesis: Code(s): K92.0 - Hematemesis Status: Acute Assessment and Plan: reportedly has been having this issue on/off for the last 6 months GI consulted with recommendations noted PRBC transfusion per protocol follow trend of H/H (4) Hypertension: Code(s): I10 - Essential (primary) hypertension Status: Acute Assessment and Plan: quite elevated resumed on home medications follow trend of hemodynamics (5) Paroxysmal A-fib: Code(s): I48.0 - Paroxysmal atrial fibrillation Status: Acute Assessment and Plan: rate control strategy anticoagulation on hold for now (6) Anemia: Code(s): D64.9 - Anemia, unspecified Status: Acute Assessment and Plan: partly related to ESRD but worsened byt #3 GI following follow trend of H/H Epogen with dialysis Greater than 25 min was spent in detail review of her electronic medical records, the company paper chart, discussion with her outpatient dialysis center and her peritoneal dialysis nurse regarding all of the above issues and problems that led to her admission to [facility]. I will continue to follow the patient with you while she remains hospitalized and make further recommendations during her hospital course. Thank you for allowing me to participate in the care of this patient. History of Present Illness Reason for Consult Consult date: 11/01/22 Reason for consult: end stage renal disease Chief Complaint Chief complaint: ESRD,Upper GI Bleed,Right Lower Quadrant Pain History of Present Illness Narrative: A great deal the information that I obtained is from review of the electronic medical record as well as discussion with her outpatient dialysis center and the dialysis nurses that have taking care of her in the past. The patient is a 67-year-old female with a past medical history as outlined below who presented to [facility] Emergency room with complaints of coffee-ground emesis, abdominal pain, and generalized weakness. The patient reports that she recently had repositioning of her PD catheter as it was not draining properly since it was placed about a month ago. Other associated symptoms included what appeared to be coffee-ground emesis whenever she vomited on and off for last 6-8 months Along with generalized weakness and fatigue as well as significant weight loss. She did see her primary care physician with regard to these symptoms and was scheduled to see GI and have an EGD for further assessment but this was not scheduled until January of this year. She was getting ready for dialysis yesterday when she became even more profoundly weak and less responsive according to family. Furthermore, her abdominal pain became more severe as well. She was subsequently transferred to the emergency room for further assessment. Workup and evaluation emergency room demonstrated the patient to be hemodynamically stable (if not hypertensive) in association with lethargy. Routine blood test demonstrated labs consistent with her known history of end-stage renal disease but her CBC was remarkable for severe anemia with a hemoglobin of 6.[address] scan of the abdomen pelvis demonstrated a 12 mm
--- NOTE | 2022-11-01 12:40 | PCDIET ---
Brief nutrition note: Screen for MST 5, poor appetite and >34 lb weight loss. Per notes, pt and family c/o weight loss ~100 lbs in the last year. On dialysis. NPO for EGD. Not able to see patient today. Will assess further when able.
--- NOTE | 2022-11-01 12:46 | WPDANESPN ---
Anes - Prog Note Post-Op Date/Time: 11/01/22 12:46 Cardiovascular status: normal Respiratory status: normal Airway patency: baseline Mental status: baseline Post-Op hydration status: normal Vital Signs: Last Vital Signs Temp 36.9 C 11/01/22 09:04 Pulse 74 11/01/22 11:40 Resp 16 11/01/22 09:04 BP 94/49 L 11/01/22 11:40 Pulse Ox 97 11/01/22 08:00 O2 Del Method Room Air 11/01/22 04:00 O2 Flow Rate 6 10/31/22 18:23 Pain Score (VAS): 0 I/O: Intake & Output 10/31/22 11/01/22 11/01/22 23:59 07:59 15:59 Intake Total 70 1190 Output Total 0 Balance 70 1190 Laboratory Tests 11/01/22 07:49 11/01/22 07:49 10/31/22 10/31/22 10/31/22 12:43 12:45 12:58 WBC 6.4 RBC 2.15 L Hgb 6.5 L* Hct 20.3 L* MCV 94.4 MCH 30.2 MCHC 32.0 RDW 14.6 H Plt Count 148 L MPV 11.2 H Immature Gran % (Auto) 0.3 Neut % (Auto) 70.6 Lymph % (Auto) 17.9 L [place] % (Auto) 10.1 H Eos % (Auto) 0.3 Baso % (Auto) 0.8 Lymph # (Auto) 1.15 [place] # (Auto) 0.7 H Eos # (Auto) 0.0 Baso # (Auto) 0.1 Abs Immat Gran (auto) 0.02 Absolute Neuts (auto) 4.5 Absolute Nucleated RBC 0.0 Nucleated RBC % 0.0 PT 19.6 H INR 1.6 APTT 33.5 Sodium 140 Potassium 3.9 Chloride 85 L Carbon Dioxide > 40 H Anion Gap BUN 101 H Creatinine 7.40 H Estim Creat Clear Calc Not Reportable Estimated GFR 5 L Glucose 214 H POC Capillary Glucose Hemoglobin A1c Lactic Acid 2.6 H Calcium 9.4 Magnesium 2.6 H Total Bilirubin 0.4 AST 16 ALT 11 Alkaline Phosphatase 95 Total Protein 5.0 L Albumin 3.1 L Lipase 49 Urine Color Urine Appearance Urine pH Ur Specific [place] Urine Protein Urine Glucose (UA) Urine Ketones Ur Blood (Man) Urine Nitrate Urine Bilirubin Urine Urobilinogen Add Ur Microanalysis Leukocyte Esterase Rfl Urine RBC Urine WBC Ur Squamous Epith Cells Urine Bacteria Urine Casts Urine Opiates Screen Urine Methadone Screen Ur Barbiturates Screen Ur Phencyclidine Scrn Ur Amphetamine Screen U Benzodiazepines Scrn Urine Cocaine Screen U Cannabinoids Screen Hepatitis A IgM Ab Hep Bs Antigen Hep Bs Antibody Hep B Core IgM Ab Hepatitis C Ab Screen Ref Lab Test Name Ref Lab Test Result Blood Type Antibody Screen Crossmatch 10/31/22 10/31/22 10/31/22 13:22 14:01 14:11 WBC RBC Hgb Hct MCV MCH MCHC RDW Plt Count MPV Immature Gran % (Auto) Neut % (Auto) Lymph % (Auto) [place] % (Auto) Eos % (Auto) Baso % (Auto) Lymph # (Auto) [place] # (Auto) Eos # (Auto) Baso # (Auto) Abs Immat Gran (auto) Absolute Neuts (auto) Absolute Nucleated RBC Nucleated RBC % PT INR APTT Sodium Potassium Chloride Carbon Dioxide Anion Gap BUN Creatinine Estim Creat Clear Calc Estimated GFR Glucose POC Capillary Glucose Hemoglobin A1c Lactic Acid Calcium Magnesium Total Bilirubin AST ALT Alkaline Phosphatase Total Protein Albumin Lipase Urine Color Yellow Urine Appearance Clear Urine pH >=9.0 H Ur Specific [place] 1.015 Urine Protein 4+ H Urine Glucose (UA) Trace H Urine Ketones Negative Ur Blood (Man) Negative Urine Nitrate Negative Urine Bilirubin Negative Urine Urobilinogen 0.2 Add Ur Microanalysis Reviewed Leukocyte Esterase Rfl Negative Urine RBC 3-5 H Urine WBC 0-5 Ur Squamous Epith Cells None seen Urine Bacteria None seen Urine Casts 3-5 Urine Opiates Screen Negative Urine Methadone Screen Negative Ur Barbiturates Screen Negative Ur Phencyclidine Scrn Negative Ur Amphetamine Screen Negative U Benzodiazepines Scrn Negative Urine Cocaine
--- NOTE | 2022-11-01 13:16 | PM.IMPN ---
Progress Note: A&P Assessment and Plan (1) S/P dialysis catheter insertion: Code(s): Z95.828 - Presence of other vascular implants and grafts; Z99.2 - Dependence on renal dialysis Status: Acute Assessment and Plan: See operative report. The patient has a peritoneal dialysis catheter to her abdomen now. (2) History of appendectomy: Code(s): Z90.49 - Acquired absence of other specified parts of digestive tract Status: Acute Assessment and Plan: the patient had an laparoscopic appendectomy, adhesiolysis and revision of peritoneal dialysis catheter. See operative report. (3) Neuropathy: Code(s): G62.9 - Polyneuropathy, unspecified Status: Acute Assessment and Plan: continue with Lyrica (4) Anxiety and depression: Code(s): F41.9 - Anxiety disorder, unspecified; F32.A - Depression, unspecified Status: Acute Assessment and Plan: continue with Trintellix (5) Hypertension: Code(s): I10 - Essential (primary) hypertension Status: Acute Assessment and Plan: continue with losartan, clonidine, and hydralazine (6) Paroxysmal A-fib: Code(s): I48.0 - Paroxysmal atrial fibrillation Status: Acute Assessment and Plan: I am holding her Eliquis as she just had surgery. Please reinstate Eliquis when okay with surgery. (7) End stage renal disease: Code(s): N18.6 - End stage renal disease Status: Chronic Assessment and Plan: Nephrology has been consulted. She has a right arm AV fistula and now she has a peritoneal dialysis catheter. (8) Iron deficiency anemia: Qualifiers: Iron deficiency anemia type: chronic blood loss Qualified Code(s): D50.0 - Iron deficiency anemia secondary to blood loss (chronic) Code(s): D50.9 - Iron deficiency anemia, unspecified Status: Acute Assessment and Plan: the patient received 1 unit of packed red blood cells and is now going to get her 2nd unit. could be related to her chronic renal failure. Continue with ferric citrate if formulary. Continue with folic acid Appreciate GI input. EGD today Subjective Date/time seen: 11/01/22 13:16 Interval history: No complaints. Exam Const: General: cooperative, comfortable, no acute distress, well developed, awake, Physically active, ill appearing, tired appearing, average body habitus, well nourished and thin Nutritional Appearance: average body habitus, well nourished and thin Orientation/consciousness: oriented to person and oriented to place Limitations: no limitations HENMT: Head: normal to inspection, No palpable skull fracture present, normocephalic and atraumatic Ears: hearing grossly normal bilaterally and external ears normal Face/Nose/Sinus: Normal external nose present and Normal nares present Eyes: General: appearance normal, both eyes and all related structures Alignment and Position: alignment normal Periorbital: periorbital findings normal Eyelids: eyelids normal Sclera: sclerae normal Pupils: Equal, round and reactive pupils present EOM: EOMs intact bilaterally Neck: Neck: normal visual inspection, full ROM, no lymphadenopathy, trachea midline and supple Carotids: normal carotid upstroke Chest: Chest palpation & inspection: normal inspection of the chest Resp: Effort & Inspection: normal respiratory effort Auscultation: clear to auscultation bilaterally Cardio: Palpation: normal PMI Rate: regular rate Rhythm: regular rhythm Heart sounds: S1 normal heart sound present and S2 normal heart sound present Peripheral pulses: Peripheral pulses 2+ throughout GI: Inspection: normal to inspection Auscultation: normal bowel sounds Rectal Exam: deferred Other: the patient has a tunneled dialysis catheter to left abdomen and she has at least 3 puncture wounds that her bruise and well approximated with glue. Abdomen still continues to be tender. Back/Spine/Pelv
[2022-11-01] MEDS: SODIUM CHLORIDE 0.9% IV 500 ML 10 ML IV CONT (14:00)
[2022-11-01 14:09] LABS: Glucose Point of Care 163 mg/dl (65-105)
--- NOTE | 2022-11-01 14:18 | WPDANESEPPF ---
Anes - Initial Pre Proc Eval Procedure: Operation Date: 10/31/22 16:00 Proposed Procedures p Laparoscopic Appendectomy - Vinicio Pozo MD Operation Date: 11/01/22 14:30 Proposed Procedures p Esophagogastroduodenoscopy - Saw Messina MD Date/Time: 11/01/22 14:18 Surgeon: Vinicio Pozo MD Pre Op Diagnosis: ESRD,Upper GI Bleed,Right Lower Quadrant Pain Patient Data Age: 67 Gender: F Height: 1.73 m Weight: 69.9 kg Last Vital Signs Temp 98.1 F 11/01/22 13:59 Pulse 80 11/01/22 13:59 Resp 18 11/01/22 13:59 BP 150/95 H 11/01/22 13:59 Pulse Ox 94 11/01/22 13:59 O2 Del Method Room Air 11/01/22 13:59 O2 Flow Rate 6 10/31/22 18:23 Allergies Allergy/AdvReac Type Severity Reaction Status Date / Time NSAIDS (Non-Steroidal Allergy Other Verified 10/31/22 23:56 Anti-Inflamma Home Medications Medication Instructions Recorded Confirmed Type allopurinol 100 mg tablet 100 mg PO DAILY 11/01/22 11/01/22 History alprazolam 0.5 mg tablet 0.5 mg PO QID PRN Anxiety 11/01/22 11/01/22 History amantadine HCl 100 mg capsule 100 mg PO DAILY 11/01/22 11/01/22 History apixaban 5 mg tablet (Eliquis) 5 mg PO BID 11/01/22 11/01/22 History atorvastatin 40 mg tablet 40 mg PO HS 11/01/22 11/01/22 History clonidine HCl 0.1 mg tablet 0.1 mg PO TID 11/01/22 11/01/22 History docusate sodium 250 mg capsule 250 mg PO DAILY 11/01/22 11/01/22 History ferric citrate 210 mg iron tablet 2 tablet PO BIDWM 11/01/22 11/01/22 History (Auryxia) ferric citrate 210 mg iron tablet 3 tablet PO TIDWM 11/01/22 11/01/22 History (Auryxia) fluticasone propionate 50 1 spray intranasal DAILY 11/01/22 11/01/22 History mcg/actuation nasal spray,suspension folic acid 400 mcg tablet 0.4 mg PO DAILY 11/01/22 11/01/22 History furosemide 80 mg tablet See Rx Instructions .Route .COMPLEX 11/01/22 11/01/22 History gentamicin 0.1 % topical cream 1 applic topical DAILY 11/01/22 11/01/22 History hydralazine 100 mg tablet 100 mg PO TID 11/01/22 11/01/22 History hydrocodone 10 mg-acetaminophen 1 tablet PO QID PRN Pain 11/01/22 11/01/22 History 325 mg tablet lamotrigine 150 mg tablet 150 mg PO Q12H 11/01/22 11/01/22 History levetiracetam 750 mg tablet 750 mg PO BID 11/01/22 11/01/22 History losartan 50 mg tablet 50 mg PO DAILY 11/01/22 11/01/22 History montelukast 10 mg tablet 10 mg PO 1700 11/01/22 11/01/22 History nifedipine 30 mg tablet,extended 30 mg PO DAILY 11/01/22 11/01/22 History release 24 hr pregabalin 50 mg capsule 50 mg PO BID 11/01/22 11/01/22 History ropinirole 0.5 mg tablet 0.5 mg PO BID 11/01/22 11/01/22 History ropinirole 0.5 mg tablet 1.5 mg PO HS 11/01/22 11/01/22 History tizanidine 4 mg tablet 4 mg PO BID PRN Muscle Spasm 11/01/22 11/01/22 History vortioxetine 10 mg tablet 10 mg PO DAILY 11/01/22 11/01/22 History (Trintellix) Laboratory Tests 10/31/22 10/31/22 10/31/22 13:22 14:01 14:11 WBC RBC Hgb Hct MCV MCH MCHC RDW Plt Count MPV Immature Gran % (Auto) Neut % (Auto) Lymph % (Auto) [place] % (Auto) Eos % (Auto) Baso % (Auto) Lymph # (Auto) [place] # (Auto) Eos # (Auto) Baso # (Auto) Abs Immat Gran (auto) Absolute Neuts (auto) Absolute Nucleated RBC Nucleated RBC % Sodium Potassium Chloride Carbon Dioxide Anion Gap BUN Creatinine Estim Creat Clear Calc Estimated GFR Glucose POC Capillary Glucose Hemoglobin A1c Calcium Magnesium Total Bilirubin AST ALT Alkaline Phosphatase Total P
[2022-11-01] MEDS: MONTELUKAST SODIUM 10 MG TABLET PO (17:29)
[2022-11-01] MEDS: PREGABALIN (*CRX) 50 MG CAPSULE PO (17:38)
[2022-11-01] MEDS: HYDROcodone/acetaminophen (*CRX) 10-325 MG TABLET 1 TAB PO (17:44)
--- NOTE | 2022-11-01 19:57 | PM.PNGS ---
Progress Note: A&P Assessment and Plan (1) History of appendectomy: Code(s): Z90.49 - Acquired absence of other specified parts of digestive tract Status: Acute Assessment and Plan: Less tender than preoperatively. No sign of complications from appendectomy. (2) S/P dialysis catheter insertion: Code(s): Z95.828 - Presence of other vascular implants and grafts; Z99.2 - Dependence on renal dialysis Status: Acute Assessment and Plan: Catheter repositioned/revised at surgery yesterday. (3) Anemia: Code(s): D64.9 - Anemia, unspecified Status: Acute (4) Abnormal weight loss: Code(s): R63.4 - Abnormal weight loss Status: Chronic (5) Gastric mass: Code(s): K31.89 - Other diseases of stomach and duodenum Status: Acute Assessment and Plan: Pre-pyloric ulcerated mass noticed at EGD. Multiple biopsies taken. (6) Peptic ulcer disease: Code(s): K27.9 - Peptic ulcer, site unspecified, unspecified as acute or chronic, without hemorrhage or perforation Status: Acute Assessment and Plan: Gastric ulcers and esophageal reflux with ulceration and esophagitis noted. Continue Protonix q.12 hours intravenously (7) End stage renal disease: Code(s): N18.6 - End stage renal disease Status: Chronic Assessment and Plan: Dialysis per Nephrology Subjective Subjective Date/Time Seen: 11/01/22 19:57 Patient reports: pain is less, afebrile and other (Fatigued and not really feeling any better) Interval history: Had EGD today. reports that showed ulcers in the esophagus and stomach. Exam Const: General: comfortable, no acute distress, ill appearing, lethargic and tired appearing GI: Inspection: abdominal wall ecchymosis (No worse than preop), non-distended, incision (Trocar sites all healing well) and other (Peritoneal dialysis catheter exit site looks fine) GI Palp: Yes Soft to palpation and Yes Tenderness to palpation present (GI) (Less tender than preop) Objective Data Vital Signs Vital Signs: Vital Signs - 24 hr 10/31/22 20:00 10/31/22 22:00 10/31/22 23:44 Temperature 36.4 C Pulse Rate 78 81 82 Respiratory Rate 18 Blood Pressure 180/58 H Pulse Oximetry 95 Oxygen Delivery 11/01/22 00:00 11/01/22 01:53 11/01/22 01:08 Temperature 36.5 C 36.6 C Pulse Rate 82 82 Respiratory Rate 14 12 Blood Pressure 138/52 L 144/52 H Pulse Oximetry 95 94 Oxygen Delivery Room Air 11/01/22 01:08 11/01/22 00:00 11/01/22 02:00 Temperature 36.6 C Pulse Rate 82 79 82 Respiratory Rate 12 Blood Pressure 144/52 H Pulse Oximetry 94 Oxygen Delivery 11/01/22 02:08 11/01/22 03:08 11/01/22 03:35 Temperature 36.6 C 36.6 C 36.6 C Pulse Rate 82 82 82 Respiratory Rate 12 14 14 Blood Pressure 144/52 H 145/62 H 145/62 H Pulse Oximetry 94 95 95 Oxygen Delivery 11/01/22 03:44 11/01/22 04:25 11/01/22 04:09 Temperature 36.6 C 36.6 C 36.6 C Pulse Rate 78 84 78 Respiratory Rate 12 13 16 Blood Pressure 145/65 H 158/61 H 150/53 H Pulse Oximetry 94 95 95 Oxygen Delivery 11/01/22 04:00 11/01/22 04:00 11/01/22 05:25 Temperature 36.4 C L Pulse Rate 82 79 Respiratory Rate 12 Blood Pressure 168/71 H Pulse Oximetry 93 Oxygen Delivery Room Air 11/01/22 06:00 11/01/22 08:00 11/01/22 08:00 Temperature 36.7 C Pulse Rate 82 77 83 Respiratory Rate 20 Blood Pressure 180/65 H Pulse Oximetry 97 Oxygen Delivery 11/01/22 09:04 11/01/22 09:16 11/01/22 09:40 Temperature 36.9 C Pulse Rate 71 78 84 Respiratory Rate 16 Blood Pressure 197/111 H 195/92 H 171/85 H Pulse Oximetry Oxygen Delivery 11/01/22 10:00 11/01/22 10:20 11/01/22 10:40 Temperature Pulse Rate 84 84 83 Respiratory Rate Blood Pressure 200/133 H 196/162 H 74/50 L Pulse Oximetry Oxygen Delivery 11/01/22 11:00 11/01/22 11:20 11/01/22 11:40 Temperature Pulse
[2022-11-01] MEDS: ATORVASTATIN 40 MG TABLET PO (20:40)
[2022-11-01] MEDS: rOPINIRole HCL 0.5 MG TABLET 1.5 MG PO (20:41)
[2022-11-02] VITALS (29 sets, daily range): BP systolic 120–166; BP diastolic 37–76; PULSE 72–82; RESP 14–20; TEMP 35.8–37.1; O2SAT 92–98
[2022-11-02 04:45] LABS: Hemoglobin 7.5 g/dL (12.0-15.0); Mean Corpuscular HGB Conc 32.6 g/dl (32-36); Mean Corpuscular Hemoglobin 30.4 pg (26-34); Mean Corpuscular Volume 93.1 fl (80-100); Mean Platelet Volume 10.1 fl (7.4-10.4); Platelet Count Result 128 k/mm3 (150-375); Red Blood Count 2.47 M/mm3 (4.2-5.4); Red Cell Distribution Width 15.8 % (11.5-14.5)
[2022-11-02 05:03] LABS: Alanine Aminotransferase 7 U/L (6-35); Albumin Level 2.8 g/dL (3.5-5.1); Alkaline Phosphatase 86 U/L (38-126); Anion Gap 7 mmol/L (8-16); Aspartate Amino Transferase 20 U/L (14-36); Bilirubin,Total 0.5 mg/dL (0.2-1.3); Blood Urea Nitrogen 59 mg/dL (7-17); Calcium 9.8 mg/dL (8.4-10.2); Carbon Dioxide 34 mmol/L (22-30); Chloride 98 mmol/L (98-107); Estimated CRCL calculation 10 ml/min; Estimated Glomerular Filt Rate 9; Glucose 123 mg/dL (65-110); Phosphorus 6.6 mg/dL (2.5-4.5); Potassium 4.3 mmol/L (3.4-5.0); Sodium 139 mmol/L (137-145)
[2022-11-02] MEDS: levETIRAcetam 250 MG TABLET 750 MG PO ×2 (08:24→20:11)
[2022-11-02] MEDS: PANTOPRAZOLE SODIUM IV 40 MG VIAL IV PUSH ×2 (08:25→20:13)
[2022-11-02] MEDS: lamoTRIgine 50 MG TABLET PO ×2 (08:25→20:11)
[2022-11-02] MEDS: lamoTRIgine 100 MG TABLET PO ×2 (08:25→20:12)
[2022-11-02] MEDS: cloNIDine HCL 0.1 MG TABLET PO ×2 (08:25→13:39)
[2022-11-02] MEDS: allopurinoL 100 MG TABLET PO (08:26)
[2022-11-02] MEDS: AMANTADINE HCL 100 MG CAPSULE PO (08:26)
[2022-11-02] MEDS: FLUTICASONE PROPIONATE 0.05% NA SPR 16 GM BTL (*BKC) 1 SPRAY NASAL (08:28)
[2022-11-02] MEDS: FOLIC ACID 0.4 MG TABLET PO (08:28)
[2022-11-02] MEDS: GENTAMICIN SULFATE 0.1% CR 15 GM TUBE 1 APPLIC TOPICAL (08:28)
[2022-11-02] MEDS: DOCUSATE SODIUM 100 MG CAPSULE 200 MG PO (08:28)
--- NOTE | 2022-11-02 08:33 | WPDANESPN ---
Anes - Prog Note Post-Op Date/Time: 11/02/22 08:33 Cardiovascular status: normal Respiratory status: normal Airway patency: baseline Mental status: baseline Post-Op hydration status: normal Vital Signs: Last Vital Signs Temp 36.8 C 11/02/22 08:00 Pulse 79 11/02/22 08:00 Resp 20 11/02/22 08:00 BP 166/55 H 11/02/22 08:00 Pulse Ox 98 11/02/22 08:00 O2 Del Method Room Air 11/01/22 20:00 O2 Flow Rate 6 10/31/22 18:23 Pain Score (VAS): 210 I/O: Intake & Output 11/01/22 11/02/22 11/02/22 23:59 07:59 15:59 Intake Total 620 350 Balance 620 350 Laboratory Tests 11/02/22 04:27 11/02/22 04:27 11/01/22 11/01/22 11/02/22 07:49 14:06 04:27 WBC 8.0 RBC 2.47 L Hgb 7.5 L Hct 23.0 L MCV 93.1 MCH 30.4 MCHC 32.6 RDW 15.8 H Plt Count 128 L MPV 10.1 Sodium 139 Potassium 4.3 Chloride 98 Carbon Dioxide 34 H Anion Gap 7 L BUN 59 H D Creatinine 5.00 H Estim Creat Clear Calc 10 Estimated GFR 9 L Glucose 123 H POC Capillary Glucose 163 H Calcium 9.8 Phosphorus 6.6 H Total Bilirubin 0.5 AST 20 ALT 7 Alkaline Phosphatase 86 Total Protein 5.0 L Albumin 2.8 L Hepatitis A IgM Ab Negative Hep Bs Antigen Negative Hep Bs Antibody Positive Hep B Core IgM Ab Negative Hepatitis C Ab Screen Negative Post-procedural complaints: none Patient Feedback: Patient satisfied with anesthetic care.
--- NOTE | 2022-11-02 08:57 | WPDGIPROGNO ---
Progress Note: A&P Assessment and Plan (1) Peptic ulcer disease: Code(s): K27.9 - Peptic ulcer, site unspecified, unspecified as acute or chronic, without hemorrhage or perforation Status: Acute Assessment and Plan: on iv protonix cl diet still abdominal pain (2) Gastric mass: Code(s): K31.89 - Other diseases of stomach and duodenum Status: Acute Assessment and Plan: pending bx- may need further work up (3) Abnormal weight loss: Code(s): R63.4 - Abnormal weight loss Status: Chronic (4) End stage renal disease: Code(s): N18.6 - End stage renal disease Status: Chronic Assessment and Plan: dialysis later today (5) Hematemesis: Code(s): K92.0 - Hematemesis Status: Acute Assessment and Plan: no more episodes (6) Acute on chronic anemia: Code(s): D64.9 - Anemia, unspecified Status: Acute Subjective Date/time seen: 11/02/22 08:57 Interval history: egd yesterday with Grade C reflux esophagitis and ulcer, also gastric ulcerated lesion with pending bx causing partial obstruction Review of Systems Review of Systems: All systems reviewed & are unremarkable except as noted in HPI and below Exam Const: General: comfortable, no acute distress, ill appearing and tired appearing HENMT: Face/Nose/Sinus: Normal nares present Eyes: Sclera: sclerae normal Neck: Neck: supple Resp: Auscultation: clear to auscultation bilaterally Cardio: Rate: regular rate GI: Inspection: abdominal wall ecchymosis (No worse than preop), non-distended, incision (Trocar sites all healing well) and other (Peritoneal dialysis catheter exit site looks fine) GI Palp: Yes Soft to palpation and Yes Tenderness to palpation present (GI) (Less tender than preop) Skin: General skin exam: normal color Neuro: Speech: normal speech Extrem: General: normal to inspection Psych: Affect: Anxious affect present Objective Data Vital Signs Vital Signs: Vital Signs - 24 hr 11/01/22 09:04 11/01/22 09:16 11/01/22 09:40 Temperature 98.5 F Pulse Rate 71 78 84 Respiratory Rate 16 Blood Pressure 197/111 H 195/92 H 171/85 H Pulse Oximetry Oxygen Delivery 11/01/22 10:00 11/01/22 10:20 11/01/22 10:40 Temperature Pulse Rate 84 84 83 Respiratory Rate Blood Pressure 200/133 H 196/162 H 74/50 L Pulse Oximetry Oxygen Delivery 11/01/22 11:00 11/01/22 11:20 11/01/22 11:40 Temperature Pulse Rate 56 L 82 74 Respiratory Rate Blood Pressure 80/46 L 78/49 L 94/49 L Pulse Oximetry Oxygen Delivery 11/01/22 12:00 11/01/22 13:59 11/01/22 10:00 Temperature 97.8 F 98.1 F Pulse Rate 82 80 84 Respiratory Rate 20 18 Blood Pressure 131/61 150/95 H Pulse Oximetry 95 94 Oxygen Delivery Room Air 11/01/22 12:00 11/01/22 13:30 11/01/22 12:00 Temperature Pulse Rate 82 101 H Respiratory Rate Blood Pressure 98/52 L Pulse Oximetry 94 Oxygen Delivery Room Air 11/01/22 12:20 11/01/22 12:35 11/01/22 13:15 Temperature 98.0 F Pulse Rate 73 74 77 Respiratory Rate 15 Blood Pressure 101/54 L 100/56 L 131/64 Pulse Oximetry Oxygen Delivery 11/01/22 15:28 11/01/22 15:38 11/01/22 15:48 Temperature Pulse Rate 88 96 88 Respiratory Rate 24 H 22 H 20 Blood Pressure 149/82 H 151/77 H 153/55 H Pulse Oximetry 96 96 97 Oxygen Delivery Room Air Room Air Room Air 11/01/22 16:00 11/01/22 12:00 11/01/22 16:00 Temperature 99.0 F 97.8 F Pulse Rate 80 82 Respiratory Rate 16 20 Blood Pressure 145/52 H 131/61 Pulse Oximetry 95 95 94 Oxygen Delivery Room Air 11/01/22 18:00 11/01/22 20:00 11/01/22 20:00 Temperature 99.5 F Pulse Rate 80 77 Respiratory Rate 20 Blood Pressure 149/51 H Pulse Oximetry 95 Oxygen Delivery Room Air 11/01/22 20:00 11/01/22 22:00 11/02/22 00:00 Temperature Pulse Rate 89 78 78 Respiratory Rate Blood Pressure Pulse Oxi
--- NOTE | 2022-11-02 10:40 | P.PNNP_ITS ---
Progress Note: A&P Assessment and Plan (1) End stage renal disease: Code(s): N18.6 - End stage renal disease Status: Chronic Assessment and Plan: * HD today to get back on outpatient schedule of T/T/S * follow electrolytes, volume status, and clearance * re-attempt peritoneal dialysis once abdomen heals (as an outpatient) (2) S/P appendectomy: Code(s): Z90.49 - Acquired absence of other specified parts of digestive tract Status: Acute Assessment and Plan: * s/p laparoscopic appendectomy and adhesiolysis * s/p revision of peritoneal dialysis catheter as well * postop care as outlined by Surgery (3) Hematemesis: Code(s): K92.0 - Hematemesis Status: Acute Assessment and Plan: * reportedly has been having this issue on/off for the last 6 months * GI following * s/p EGD with findings noted: * reflux esophagitis + ulcer * ulcerated gastric lesion/mass * PRBC transfusion per protocol * follow trend of H/H (4) Hypertension: Code(s): I10 - Essential (primary) hypertension Status: Acute Assessment and Plan: * reasonable control at this time * resumed on home medications * follow trend of hemodynamics (5) Paroxysmal A-fib: Code(s): I48.0 - Paroxysmal atrial fibrillation Status: Acute Assessment and Plan: * rate control strategy * anticoagulation on hold for now (6) Anemia: Code(s): D64.9 - Anemia, unspecified Status: Acute Assessment and Plan: * partly related to ESRD but worsened by #3 * GI following * follow trend of H/H * Epogen with dialysis Will continue to follow. Subjective Date/time seen: 11/02/22 10:40 Interval history: Follow-up for end stage renal disease on hemodialysis. Tolerated hemodialysis treatment yesterday and tolerating hemodialysis treatment at the time of my visit (seen on HD at ~ 10:30AM); s/p EGD yesterday with findings noted; resting comfortably and in no apparent distress; abdominal pain seems to be improving since surgical intervention. Exam Narrative: General: ill appearing female in NAD Heart: normal S1 and S2; no rub Lungs: clear to auscultation Abdomen: soft, nontender, nondistended, positive bowel sounds Extremities: no cyanosis or clubbing; no edema Skin: warm and dry Objective Data Vital Signs Vital Signs: Vital Signs Temp Pulse Resp BP Pulse Ox O2 Del Method 11/02/22 10:20 78 151/67 H 11/02/22 10:00 78 135/71 11/02/22 09:40 81 155/69 H 11/02/22 09:21 79 166/76 H 11/02/22 09:10 98.6 F 80 16 164/75 H 11/02/22 12:00 82 11/02/22 12:00 98 Room Air 11/02/22 10:00 80 11/02/22 08:00 98 Room Air 11/02/22 08:00 82 11/02/22 08:00 98.3 F 79 20 166/55 H 98 11/02/22 06:00 78 11/02/22 04:00 97.9 F 75 20 155/45 H 96 11/02/22 04:00 79 11/02/22 02:00 75 11/02/22 00:00 98.1 F 82 20 133/47 L 96 11/02/22 00:00 78 11/01/22 22:00 78 11/01/22 20:00 89 11/01/22 20:00 Room Air 11/01/22 20:00 99.5 F 77 20 149/51 H 95 11/01/22 18:00 80 11/01/22 16:00 94 Room Air 11/01/22 1
--- NOTE | 2022-11-02 10:40 | PM.PNNEP ---
Progress Note: A&P Assessment and Plan (1) End stage renal disease: Code(s): N18.6 - End stage renal disease Status: Chronic Assessment and Plan: HD today to get back on outpatient schedule of T/T/S follow electrolytes, volume status, and clearance re-attempt peritoneal dialysis once abdomen heals (as an outpatient) (2) S/P appendectomy: Code(s): Z90.49 - Acquired absence of other specified parts of digestive tract Status: Acute Assessment and Plan: s/p laparoscopic appendectomy and adhesiolysis s/p revision of peritoneal dialysis catheter as well postop care as outlined by Surgery (3) Hematemesis: Code(s): K92.0 - Hematemesis Status: Acute Assessment and Plan: reportedly has been having this issue on/off for the last 6 months GI following s/p EGD with findings noted: reflux esophagitis + ulcer ulcerated gastric lesion/mass PRBC transfusion per protocol follow trend of H/H (4) Hypertension: Code(s): I10 - Essential (primary) hypertension Status: Acute Assessment and Plan: reasonable control at this time resumed on home medications follow trend of hemodynamics (5) Paroxysmal A-fib: Code(s): I48.0 - Paroxysmal atrial fibrillation Status: Acute Assessment and Plan: rate control strategy anticoagulation on hold for now (6) Anemia: Code(s): D64.9 - Anemia, unspecified Status: Acute Assessment and Plan: partly related to ESRD but worsened by #3 GI following follow trend of H/H Epogen with dialysis Will continue to follow. Subjective Date/time seen: 11/02/22 10:40 Interval history: Follow-up for end stage renal disease on hemodialysis. Tolerated hemodialysis treatment yesterday and tolerating hemodialysis treatment at the time of my visit (seen on HD at ~ 10:30AM); s/p EGD yesterday with findings noted; resting comfortably and in no apparent distress; abdominal pain seems to be improving since surgical intervention. Exam Narrative: General: ill appearing female in NAD Heart: normal S1 and S2; no rub Lungs: clear to auscultation Abdomen: soft, nontender, nondistended, positive bowel sounds Extremities: no cyanosis or clubbing; no edema Skin: warm and dry Objective Data Vital Signs Vital Signs: Vital Signs Temp Pulse Resp BP Pulse Ox O2 Del Method 11/02/22 10:20 78 151/67 H 11/02/22 10:00 78 135/71 11/02/22 09:40 81 155/69 H 11/02/22 09:21 79 166/76 H 11/02/22 09:10 98.6 F 80 16 164/75 H 11/02/22 12:00 82 11/02/22 12:00 98 Room Air 11/02/22 10:00 80 11/02/22 08:00 98 Room Air 11/02/22 08:00 82 11/02/22 08:00 98.3 F 79 20 166/55 H 98 11/02/22 06:00 78 11/02/22 04:00 97.9 F 75 20 155/45 H 96 11/02/22 04:00 79 11/02/22 02:00 75 11/02/22 00:00 98.1 F 82 20 133/47 L 96 11/02/22 00:00 78 11/01/22 22:00 78 11/01/22 20:00 89 11/01/22 20:00 Room Air 11/01/22 20:00 99.5 F 77 20 149/51 H 95 11/01/22 18:00 80 11/01/22 16:00 94 Room Air 11/01/22 16:00 99.0 F 80 16 145/52 H 95 11/01/22 15:48 88 20 153/55 H 97 Room Air 11/01/22 15:38 96 22 H 151/77 H 96 Room Air 11/01/22 15:28 88 24 H 149/82 H 96 Room Air Intake/Output Intake/Output: Intake & Output 10/30/22 10/31/22 11/01/22 11/02/22 23:59 23:59 23:59 23:59 Intake Total 70 1810 350 Output Total 600 Balance 70 1210 350 Meds/Results Medications: Active Medications Generic Name Dose Route Start Last Admin Trade Name Freq PRN Reason Stop Dose Admin Acetaminophen 650 mg 10/31/22 19:01 Acetaminophen 650 Mg Suppository RECTAL Q6H PRN Mild Pain (1-3) or Fever Hydrocodone Bitart/Acetaminophen 1 tab 11/01/22 03:29 11/01/22 17:44 Hydrocodone/Acetaminophen (*Crx) 1
[2022-11-02] MEDS: EPOETIN ALFA-EPBX 10,000 UNITS/ML VIAL 10000 UNITS IV PUSH (11:29)
--- NOTE | 2022-11-02 11:29 | PC.NURSE ---
Addendum entered by Rod Nicole RN 11/02/22 17:39: This nurse held am Meds as requested by HD nurse this am pt did take HTN meds and Keppra today after HD, and colace pt refused Lyrica after HD. Original Note: HD nurse asked this nurse prior to tx today to hold all am BP meds due to pt not tolerating HD/BP drop yesterday during tx, this nurse verifyed with HD nurse x2 to hold all HTN meds today and was given verbal request to hold.
--- NOTE | 2022-11-02 12:28 | PM.IMPN ---
Progress Note: A&P Assessment and Plan (1) S/P dialysis catheter insertion: Code(s): Z95.828 - Presence of other vascular implants and grafts; Z99.2 - Dependence on renal dialysis Status: Acute Assessment and Plan: See operative report. The patient has a peritoneal dialysis catheter to her abdomen now. (2) History of appendectomy: Code(s): Z90.49 - Acquired absence of other specified parts of digestive tract Status: Acute Assessment and Plan: the patient had an laparoscopic appendectomy, adhesiolysis and revision of peritoneal dialysis catheter. See operative report. (3) Neuropathy: Code(s): G62.9 - Polyneuropathy, unspecified Status: Acute Assessment and Plan: continue with Lyrica (4) Anxiety and depression: Code(s): F41.9 - Anxiety disorder, unspecified; F32.A - Depression, unspecified Status: Acute Assessment and Plan: continue with Trintellix (5) Hypertension: Code(s): I10 - Essential (primary) hypertension Status: Acute Assessment and Plan: continue with losartan, clonidine, and hydralazine (6) Paroxysmal A-fib: Code(s): I48.0 - Paroxysmal atrial fibrillation Status: Acute Assessment and Plan: I am holding her Eliquis as she just had surgery. Please reinstate Eliquis when okay with surgery. (7) End stage renal disease: Code(s): N18.6 - End stage renal disease Status: Chronic Assessment and Plan: Nephrology has been consulted. She has a right arm AV fistula and now she has a peritoneal dialysis catheter. (8) Iron deficiency anemia: Qualifiers: Iron deficiency anemia type: chronic blood loss Qualified Code(s): D50.0 - Iron deficiency anemia secondary to blood loss (chronic) Code(s): D50.9 - Iron deficiency anemia, unspecified Status: Acute Assessment and Plan: the patient received 1 unit of packed red blood cells and is now going to get her 2nd unit. could be related to her chronic renal failure. Continue with ferric citrate if formulary. Continue with folic acid Appreciate GI input. EGD today (9) Gastric mass: Code(s): K31.89 - Other diseases of stomach and duodenum Status: Acute Assessment and Plan: Biopsies pending. appreciate GI input. (10) Peptic ulcer disease: Code(s): K27.9 - Peptic ulcer, site unspecified, unspecified as acute or chronic, without hemorrhage or perforation Status: Acute Assessment and Plan: Continue PPI Subjective Date/time seen: 11/02/22 12:28 Interval history: Patient is lethargic today. She denies any new complaints. Having some mild abdominal pain. Exam Const: General: cooperative, comfortable, no acute distress, well developed, awake, Physically active, ill appearing, tired appearing, average body habitus, well nourished and thin Nutritional Appearance: average body habitus, well nourished and thin Orientation/consciousness: oriented to person and oriented to place Limitations: no limitations HENMT: Head: normal to inspection, No palpable skull fracture present, normocephalic and atraumatic Ears: hearing grossly normal bilaterally and external ears normal Face/Nose/Sinus: Normal external nose present and Normal nares present Eyes: General: appearance normal, both eyes and all related structures Alignment and Position: alignment normal Periorbital: periorbital findings normal Eyelids: eyelids normal Sclera: sclerae normal Pupils: Equal, round and reactive pupils present EOM: EOMs intact bilaterally Neck: Neck: normal visual inspection, full ROM, no lymphadenopathy, trachea midline and supple Carotids: normal carotid upstroke Chest: Chest palpation & inspection: normal inspection of the chest Resp: Effort & Inspection: normal respiratory effort Auscultation: clear to auscultation bilaterally Cardio: Palpation: normal PMI Rate: regular rate
[2022-11-02] MEDS: hydrALAZINE HCL 50 MG TABLET 100 MG PO (13:39)
[2022-11-02] MEDS: HYDROcodone/acetaminophen (*CRX) 10-325 MG TABLET 1 TAB PO ×2 (14:47→20:12)
[2022-11-02 16:06] LABS: Hematocrit 23.6 % (37.0-47.0); Hemoglobin 7.5 g/dL (12.0-15.0)
[2022-11-02] MEDS: ONDANSETRON INJ 4 MG/2 ML VIAL IV PUSH (16:31)
--- NOTE | 2022-11-02 16:49 | PC.NURSE ---
Pt evening meds held due to nausea this evening she refused call out to Dr Barrios to make aware, zofran given, pt reported nausea improved but not gone.
--- NOTE | 2022-11-02 18:09 | PC.NURSE ---
This nurse called Dr Barrios x2 to report pt refusal of meds no answer back at this time
[2022-11-02] MEDS: ATORVASTATIN 40 MG TABLET PO (20:12)
[2022-11-02] MEDS: rOPINIRole HCL 0.5 MG TABLET 1.5 MG PO (20:12)
[2022-11-03] VITALS (16 sets, daily range): BP systolic 122–176; BP diastolic 40–55; PULSE 63–90; RESP 18–20; TEMP 36.4–37.2; O2SAT 96–97
[2022-11-03 04:49] LABS: Basophils Percent Auto 0.5 % (0.2-1.2); Eosinophils Absolute Auto 0.5 K/mm3 (0-0.3); Eosinophils Percent Auto 7.6 % (0-4.4); Hematocrit 23.1 % (37.0-47.0); Hemoglobin 7.3 g/dL (12.0-15.0); Immature Granulocyte Absolute 0.03 K/mm3 (0.00-0.031); Immature Granulocyte Percent A 0.5 % (0-0.5); Lymphocytes Absolute Auto 1.01 K/mm3 (0.9-3.2); Lymphocytes Percent Auto 16.7 % (18.3-44.2); Mean Corpuscular HGB Conc 31.6 g/dl (32-36); Mean Corpuscular Hemoglobin 30.7 pg (26-34); Mean Corpuscular Volume 97.1 fl (80-100); Mean Platelet Volume 10.1 fl (7.4-10.4); Monocytes Absolute Auto 0.9 K/mm3 (0.1-0.6); Monocytes Percent Auto 15.2 % (2.6-8.5); Neutrophils Absolute Auto 3.6 K/mm3 (1.3-6.7); Neutrophils Percent Auto 59.5 % (45.5-73.1); Nucleated Red Blood Cells Absolute Auto 0.1 K/mm3 (0.0-0.012); Platelet Count Result 120 k/mm3 (150-375); Red Blood Count 2.38 M/mm3 (4.2-5.4); Red Cell Distribution Width 15.7 % (11.5-14.5)
[2022-11-03 05:06] LABS: Alanine Aminotransferase 7 U/L (6-35); Albumin Level 2.9 g/dL (3.5-5.1); Alkaline Phosphatase 94 U/L (38-126); Aspartate Amino Transferase 21 U/L (14-36); Bilirubin,Total 0.6 mg/dL (0.2-1.3); Blood Urea Nitrogen 33 mg/dL (7-17); Calcium 8.9 mg/dL (8.4-10.2); Carbon Dioxide > 40 mmol/L (22-30); Chloride 95 mmol/L (98-107); Estimated CRCL calculation 16 ml/min; Estimated Glomerular Filt Rate 15; Glucose 130 mg/dL (65-110); Phosphorus 3.7 mg/dL (2.5-4.5); Potassium 3.7 mmol/L (3.4-5.0); Sodium 139 mmol/L (137-145)
--- NOTE | 2022-11-03 09:18 | PM.PNGS ---
Progress Note: A&P Assessment and Plan (1) Hemorrhage from dialysis catheter: Code(s): T82.838A - Hemorrhage due to vascular prosthetic devices, implants and grafts, initial encounter Status: Acute Assessment and Plan: See procedure note, I suture closed the skin around the PD catheter to hopefully avoid any further bleeding. Repeat H&H is pending. H&H this morning was low but stable. No evidence of intra-abdominal bleeding by exam. Nursing reports quite a bit more blood than I would expect from simple skin or wound tract bleeding but we will see what repeat H&H shows and if any further signs of bleeding present. Patient's Eliquis has been held. (2) ESRD (end stage renal disease) on dialysis: Code(s): N18.6 - End stage renal disease; Z99.2 - Dependence on renal dialysis Status: Chronic Assessment and Plan: Receiving hemodialysis (3) S/P appendectomy: Code(s): Z90.49 - Acquired absence of other specified parts of digestive tract Status: Acute Assessment and Plan: No evidence of complications so far Subjective Subjective Date/Time Seen: 11/03/22 09:18 Patient reports: feels better, pain is less, tolerating liquids well, afebrile and other (Bleeding from peritoneal dialysis catheter site) Interval history: I was called to see patient urgently this morning as she was sitting up on the commode and a large volume of blood came from the peritoneal dialysis catheter site. Nursing felt this was at least a L of blood as it went down the patient's side and onto the floor. Patient was assured back to her bed and placed supine with pressure held over peritoneal dialysis catheter site. Bleeding seemed to have subsided with this. Repeat H&H is pending Review of Systems Review of Systems: All systems reviewed & are unremarkable except as noted in HPI and below (HPI and those items noted below) Constitutional: Constitutional: Denies chills and Denies fever(s) Cardiovascular: Cardiovascular: Denies chest pain, Denies diaphoresis, Denies dyspnea and Denies paroxysmal nocturnal dyspnea Respiratory: Respiratory: Denies chest congestion, Denies cough and Denies dyspnea Integumentary/Breasts: Skin/Breast: Denies lesions and Denies rash Exam Const: General: comfortable, no acute distress, alert and awake Orientation/consciousness: confusion and Other orientation findings (Conversant) GI: Inspection: non-distended, incision (Small amount of blood from PD catheter exit site skin) and other (Trocar sites from appendectomy dry and healing) GI Palp: Yes Soft to palpation, Yes Tenderness to palpation present (GI), No Guarding due to palpation present (GI) and No Rebound tenderness present Neuro: General: moves all extremities, no focal motor deficits and CN's II-XI intact bilaterally Cranial nerves: Yes facial symmetry Speech: normal speech Gait exam (Neuro): Unable to assess gait Extrem: General: no calf tenderness and no edema Psych: Speech and movement: Clear speech present Affect: normal affect Attitude: cooperative Insight: Fair insight present (Psych) Judgement: Fair judgement present (Psych) Objective Data Vital Signs Vital Signs: Vital Signs - 24 hr 11/02/22 10:00 11/02/22 12:00 11/02/22 12:00 Temperature Pulse Rate 80 82 Respiratory Rate Blood Pressure Pulse Oximetry 98 Oxygen Delivery Room Air 11/02/22 09:21 11/02/22 09:40 11/02/22 10:00 Temperature Pulse Rate 79 81 78 Respiratory Rate Blood Pressure 166/76 H 155/69 H 135/71 Pulse Oximetry Oxygen Delivery 11/02/22 10:20 11/02/22 10:40 11/02/22 11:00 Temperature Pulse Rate 78 77 78 Respiratory Rate Blood Pressure 151/67 H 156/61 H 136/64 Pulse Oximetry Oxygen Delivery 11/02/22 11:20 11/02/22 11:40 11/02/22 12:00 Temperature Pulse Rate 82 82 72 Respiratory Rate Blood Pressure 125/63 120/58 L 129/52 L Pulse Oximetry Oxygen Delivery 11/02
--- NOTE | 2022-11-03 09:29 | P.OP_ITS ---
Procedure Note - Detailed Date of Procedure 11/03/22 Pre-op Diagnosis Bleeding PD catheter exit site Post-op Diagnosis Same Procedure Performed Suture PD catheter site for hemorrhage control Surgeon Vinicio Pozo MD Anesthesia Local (1% lidocaine) Indications Patient on the commode and had significant bleeding from PD catheter exit site. After patient returned to bed and pressure held, bleeding improved but still oozing blood. Findings Seemed to be from skin at PD catheter exit site. No bruising or hematoma at catheter subcutaneous tunnel and no evidence of intra-abdominal bleeding by exam. Description of Procedure Patient was supine in her hospital bed. The catheter exit site was prepped with Betadine including the end of the peritoneal dialysis catheter. Sterile draping and precautions were used. Local anesthetic was infiltrated all around the peritoneal dialysis catheter site in the skin and subcutaneous. 3-0 nylon suture was then used to close the PD catheter exit site snugly around the c atheter. Closure was observed for a couple of minutes and no additional bleeding occurred. Redressed with gauze and Tegaderm dressing. Estimated Blood Loss 0 Urine Output 0 Drains No Packing No Pathology None sent Complications No immediate complications Condition Stable Disposition No change [facility] Billing Surgery - Charge Forward: Surgery Billing (Suture closure bleeding PD catheter site)
[2022-11-03] MEDS: LIDO 1%/EPINEPHRINE 1:100,000 20 ML VIAL 5 ML INFILTRATE (09:40)
[2022-11-03] MEDS: lamoTRIgine 50 MG TABLET PO ×2 (09:43→20:11)
[2022-11-03] MEDS: lamoTRIgine 100 MG TABLET PO ×2 (09:43→20:11)
[2022-11-03] MEDS: FOLIC ACID 0.4 MG TABLET PO (09:43)
[2022-11-03] MEDS: levETIRAcetam 250 MG TABLET 750 MG PO ×2 (09:43→20:11)
[2022-11-03] MEDS: allopurinoL 100 MG TABLET PO (09:45)
[2022-11-03] MEDS: rOPINIRole HCL 0.5 MG TABLET PO ×2 (09:46→17:07)
[2022-11-03] MEDS: DOCUSATE SODIUM 100 MG CAPSULE 200 MG PO (09:46)
[2022-11-03] MEDS: GENTAMICIN SULFATE 0.1% CR 15 GM TUBE 1 APPLIC TOPICAL (09:47)
[2022-11-03] MEDS: FLUTICASONE PROPIONATE 0.05% NA SPR 16 GM BTL (*BKC) 1 SPRAY NASAL (09:47)
[2022-11-03] MEDS: LOSARTAN POTASSIUM 50 MG TABLET PO (09:48)
[2022-11-03] MEDS: NIFEdipine 30 MG TAB.ER.24 PO (09:48)
[2022-11-03] MEDS: AMANTADINE HCL 100 MG CAPSULE PO (09:48)
[2022-11-03] MEDS: cloNIDine HCL 0.1 MG TABLET PO ×3 (09:48→17:05)
[2022-11-03] MEDS: hydrALAZINE HCL 50 MG TABLET 100 MG PO ×2 (09:49→17:05)
[2022-11-03] MEDS: PANTOPRAZOLE SODIUM IV 40 MG VIAL IV PUSH ×2 (09:53→20:11)
[2022-11-03] MEDS: PREGABALIN (*CRX) 50 MG CAPSULE PO ×2 (10:14→17:04)
[2022-11-03 10:15] LABS: Hematocrit 24.9 % (37.0-47.0); Hemoglobin 7.6 g/dL (12.0-15.0)
--- NOTE | 2022-11-03 10:32 | PM.IMPN ---
Progress Note: A&P Assessment and Plan (1) S/P dialysis catheter insertion: Code(s): Z95.828 - Presence of other vascular implants and grafts; Z99.2 - Dependence on renal dialysis Status: Acute Assessment and Plan: See operative report. The patient has a peritoneal dialysis catheter to her abdomen now. (2) History of appendectomy: Code(s): Z90.49 - Acquired absence of other specified parts of digestive tract Status: Acute Assessment and Plan: the patient had an laparoscopic appendectomy, adhesiolysis and revision of peritoneal dialysis catheter. See operative report. (3) Neuropathy: Code(s): G62.9 - Polyneuropathy, unspecified Status: Acute Assessment and Plan: continue with Lyrica (4) Anxiety and depression: Code(s): F41.9 - Anxiety disorder, unspecified; F32.A - Depression, unspecified Status: Acute Assessment and Plan: continue with Trintellix (5) Hypertension: Code(s): I10 - Essential (primary) hypertension Status: Acute Assessment and Plan: continue with losartan, clonidine, and hydralazine (6) Paroxysmal A-fib: Code(s): I48.0 - Paroxysmal atrial fibrillation Status: Acute Assessment and Plan: I am holding her Eliquis as she just had surgery. Please reinstate Eliquis when okay with surgery. (7) End stage renal disease: Code(s): N18.6 - End stage renal disease Status: Chronic Assessment and Plan: Per Nephrology (8) Iron deficiency anemia: Qualifiers: Iron deficiency anemia type: chronic blood loss Qualified Code(s): D50.0 - Iron deficiency anemia secondary to blood loss (chronic) Code(s): D50.9 - Iron deficiency anemia, unspecified Status: Acute Assessment and Plan: the patient received 1 unit of packed red blood cells and is now going to get her 2nd unit. could be related to her chronic renal failure. Continue with ferric citrate if formulary. Continue with folic acid Appreciate GI input. EGD results noted. Waiting biopsy results. Continue PPI (9) Gastric mass: Code(s): K31.89 - Other diseases of stomach and duodenum Status: Acute Assessment and Plan: Biopsies pending. appreciate GI input. (10) Peptic ulcer disease: Code(s): K27.9 - Peptic ulcer, site unspecified, unspecified as acute or chronic, without hemorrhage or perforation Status: Acute Assessment and Plan: Continue PPI Subjective Date/time seen: 11/03/22 10:32 Interval history: Still having complaints of abdominal pain. No additional complaints today Exam Const: General: cooperative, comfortable, no acute distress, well developed, awake, Physically active, ill appearing, tired appearing, average body habitus, well nourished and thin Nutritional Appearance: average body habitus, well nourished and thin Orientation/consciousness: oriented to person and oriented to place Limitations: no limitations HENMT: Head: normal to inspection, No palpable skull fracture present, normocephalic and atraumatic Ears: hearing grossly normal bilaterally and external ears normal Face/Nose/Sinus: Normal external nose present and Normal nares present Eyes: General: appearance normal, both eyes and all related structures Alignment and Position: alignment normal Periorbital: periorbital findings normal Eyelids: eyelids normal Sclera: sclerae normal Pupils: Equal, round and reactive pupils present EOM: EOMs intact bilaterally Neck: Neck: normal visual inspection, full ROM, no lymphadenopathy, trachea midline and supple Carotids: normal carotid upstroke Chest: Chest palpation & inspection: normal inspection of the chest Resp: Effort & Inspection: normal respiratory effort Auscultation: clear to auscultation bilaterally Cardio: Palpation: normal PMI Rate: regular rate Rhythm: regular rhythm Heart sounds: S1 normal heart sound present a
--- NOTE | 2022-11-03 11:40 | PC.NURSE ---
Room 204 called out asking to get into the chair. When I walked into the room her site was intact. However, when placed on the bedside commode I began to notice fresh blood trickling beneath her. When I lifted her gown her PD dressing was soaked in blood and dripping. I immediately put patient back into bed and called Dr. Pozo. He came to bedside and sutured PD catheter to skin. No further issues noted. Please see Dr. Mack notes for further information.
--- NOTE | 2022-11-03 12:18 | P.PNNP_ITS ---
Progress Note: A&P Assessment and Plan (1) End stage renal disease: Code(s): N18.6 - End stage renal disease Status: Chronic Assessment and Plan: * HD yesterday to get back on outpatient schedule of T/T/S * follow electrolytes, volume status, and clearance * re-attempt peritoneal dialysis once abdomen heals (as an outpatient) (2) S/P appendectomy: Code(s): Z90.49 - Acquired absence of other specified parts of digestive tract Status: Acute Assessment and Plan: * s/p laparoscopic appendectomy and adhesiolysis * s/p revision of peritoneal dialysis catheter as well * postop care as outlined by Surgery (3) Hematemesis: Code(s): K92.0 - Hematemesis Status: Acute Assessment and Plan: * reportedly has been having this issue on/off for the last 6 months * GI following * s/p EGD with findings noted: * reflux esophagitis + ulcer * ulcerated gastric lesion/mass * PRBC transfusion per protocol * follow trend of H/H (4) Hypertension: Code(s): I10 - Essential (primary) hypertension Status: Acute Assessment and Plan: * reasonable control at this time * resumed on home medications * follow trend of hemodynamics (5) Paroxysmal A-fib: Code(s): I48.0 - Paroxysmal atrial fibrillation Status: Acute Assessment and Plan: * rate control strategy * anticoagulation on hold for now (6) Anemia: Code(s): D64.9 - Anemia, unspecified Status: Acute Assessment and Plan: * partly related to ESRD but worsened by #3 * GI following * follow trend of H/H * Epogen with dialysis Will continue to follow. Subjective Date/time seen: 11/03/22 12:18 Interval history: Follow-up for end stage renal disease on hemodialysis. Tolerated hemodialysis treatment yesterday without any issues or problems; still having on/off abdominal pain; noted to have significant bleeding/oozing from PD catheter exit site so this area was sutured by Dr. Pozo earlier this morning with resolution; no other apparent issues/problems voiced; no events overnight. Exam Narrative: General: ill appearing female in NAD Heart: normal S1 and S2; no rub Lungs: clear to auscultation Abdomen: soft, nontender, nondistended, positive bowel sounds Extremities: no cyanosis or clubbing; no edema Skin: warm and intact Objective Data Vital Signs Vital Signs: Vital Signs Temp Pulse Resp BP Pulse Ox O2 Del Method 11/03/22 12:00 69 11/03/22 11:46 97.5 F L 72 18 176/55 H 96 11/03/22 10:00 69 11/03/22 08:00 73 11/03/22 07:47 97.9 F 73 20 167/54 H 96 11/03/22 06:00 76 11/03/22 04:00 99 F 78 20 136/52 L 97 11/03/22 03:22 90 18 97 Room Air 11/03/22 03:22 78 11/03/22 02:00 90 11/03/22 00:00 82 18 97 Room Air 11/03/22 00:00 81 11/02/22 23:33 97.4 F L 79 18 144/44 H 97 11/02/22 22:00 78 11/02/22 21:57 98 Room Air 11/02/22 20:00 82 20 98 Room Air 11/02/22 20:00 82 11/02/22 19:45 97.9 F 82 20 136/44 L 98 11/02/22 18:00 81 Intake/Output Intake/Output: Intake & Output 06/0
--- NOTE | 2022-11-03 12:18 | PM.PNNEP ---
Progress Note: A&P Assessment and Plan (1) End stage renal disease: Code(s): N18.6 - End stage renal disease Status: Chronic Assessment and Plan: HD yesterday to get back on outpatient schedule of T/T/S follow electrolytes, volume status, and clearance re-attempt peritoneal dialysis once abdomen heals (as an outpatient) (2) S/P appendectomy: Code(s): Z90.49 - Acquired absence of other specified parts of digestive tract Status: Acute Assessment and Plan: s/p laparoscopic appendectomy and adhesiolysis s/p revision of peritoneal dialysis catheter as well postop care as outlined by Surgery (3) Hematemesis: Code(s): K92.0 - Hematemesis Status: Acute Assessment and Plan: reportedly has been having this issue on/off for the last 6 months GI following s/p EGD with findings noted: reflux esophagitis + ulcer ulcerated gastric lesion/mass PRBC transfusion per protocol follow trend of H/H (4) Hypertension: Code(s): I10 - Essential (primary) hypertension Status: Acute Assessment and Plan: reasonable control at this time resumed on home medications follow trend of hemodynamics (5) Paroxysmal A-fib: Code(s): I48.0 - Paroxysmal atrial fibrillation Status: Acute Assessment and Plan: rate control strategy anticoagulation on hold for now (6) Anemia: Code(s): D64.9 - Anemia, unspecified Status: Acute Assessment and Plan: partly related to ESRD but worsened by #3 GI following follow trend of H/H Epogen with dialysis Will continue to follow. Subjective Date/time seen: 11/03/22 12:18 Interval history: Follow-up for end stage renal disease on hemodialysis. Tolerated hemodialysis treatment yesterday without any issues or problems; still having on/off abdominal pain; noted to have significant bleeding/oozing from PD catheter exit site so this area was sutured by Dr. Pozo earlier this morning with resolution; no other apparent issues/problems voiced; no events overnight. Exam Narrative: General: ill appearing female in NAD Heart: normal S1 and S2; no rub Lungs: clear to auscultation Abdomen: soft, nontender, nondistended, positive bowel sounds Extremities: no cyanosis or clubbing; no edema Skin: warm and intact Objective Data Vital Signs Vital Signs: Vital Signs Temp Pulse Resp BP Pulse Ox O2 Del Method 11/03/22 12:00 69 11/03/22 11:46 97.5 F L 72 18 176/55 H 96 11/03/22 10:00 69 11/03/22 08:00 73 11/03/22 07:47 97.9 F 73 20 167/54 H 96 11/03/22 06:00 76 11/03/22 04:00 99 F 78 20 136/52 L 97 11/03/22 03:22 90 18 97 Room Air 11/03/22 03:22 78 11/03/22 02:00 90 11/03/22 00:00 82 18 97 Room Air 11/03/22 00:00 81 11/02/22 23:33 97.4 F L 79 18 144/44 H 97 11/02/22 22:00 78 11/02/22 21:57 98 Room Air 11/02/22 20:00 82 20 98 Room Air 11/02/22 20:00 82 11/02/22 19:45 97.9 F 82 20 136/44 L 98 11/02/22 18:00 81 Intake/Output Intake/Output: Intake & Output 10/31/22 11/01/22 11/02/22 11/03/22 23:59 23:59 23:59 23:59 Intake Total 70 1810 800 530 Output Total 600 1000 0 Balance 70 1210 -200 530 Meds/Results Medications: Active Medications Generic Name Dose Route Start Last Admin Trade Name Freq PRN Reason Stop Dose Admin Acetaminophen 650 mg 10/31/22 19:01 Acetaminophen 650 Mg Suppository RECTAL Q6H PRN Mild Pain (1-3) or Fever Hydrocodone Bitart/Acetaminophen 1 tab 11/01/22 03:29 11/02/22 20:12 Hydrocodone/Acetaminophen (*Crx) 10-325 Mg Tablet PO 1 tab QID PRN Administration Pain Rated 7-10 Allopurinol 100 mg 11/01/22 08:00 11/03/22 09:45 Allopurinol 100 Mg Tablet PO 100 mg DAILY@0800 PHYLICIA Administration Alprazolam 0.5 mg 11/01/22 03:29 Alprazolam (*Crx
[2022-11-03] MEDS: ATORVASTATIN 40 MG TABLET PO (17:06)
[2022-11-03] MEDS: MONTELUKAST SODIUM 10 MG TABLET PO (17:07)
--- NOTE | 2022-11-03 19:50 | WPDGIPROGNO ---
Progress Note: A&P Assessment and Plan (1) Peptic ulcer disease: Code(s): K27.9 - Peptic ulcer, site unspecified, unspecified as acute or chronic, without hemorrhage or perforation Status: Acute Assessment and Plan: on iv protonix cl diet less abdominal pain (2) Gastric mass: Code(s): K31.89 - Other diseases of stomach and duodenum Status: Acute Assessment and Plan: pending bx- may need further work up (3) Abnormal weight loss: Code(s): R63.4 - Abnormal weight loss Status: Chronic (4) End stage renal disease: Code(s): N18.6 - End stage renal disease Status: Chronic Assessment and Plan: s/p dialysis yesterday PD catheter in place, required suture earlier (5) Hematemesis: Code(s): K92.0 - Hematemesis Status: Acute Assessment and Plan: resolved, on ppi (6) Acute on chronic anemia: Code(s): D64.9 - Anemia, unspecified Status: Acute Assessment and Plan: multifactorial monitor Subjective Date/time seen: 11/03/22 19:50 Interval history: no more GI bleeding, less abdominal pain. Had oozing from PD catheter that required suture by surgery Review of Systems Review of Systems: All systems reviewed & are unremarkable except as noted in HPI and below Exam Const: General: comfortable, no acute distress, alert and awake HENMT: Face/Nose/Sinus: Normal nares present Eyes: Sclera: sclerae normal Neck: Neck: supple Resp: Effort & Inspection: normal respiratory effort Cardio: Rate: regular rate GI: Inspection: non-distended, incision (Small amount of blood from PD catheter exit site skin) and other (Trocar sites from appendectomy dry and healing) GI Palp: Yes Soft to palpation, Yes Tenderness to palpation present (GI), No Guarding due to palpation present (GI) and No Rebound tenderness present Skin: General skin exam: normal color Neuro: General: moves all extremities and no focal motor deficits Speech: normal speech Extrem: General: no calf tenderness and no edema Psych: Speech and movement: Clear speech present Affect: normal affect Attitude: cooperative Insight: Fair insight present (Psych) Judgement: Fair judgement present (Psych) Objective Data Vital Signs Vital Signs: Vital Signs - 24 hr 11/02/22 20:00 11/02/22 20:00 11/02/22 21:57 Temperature Pulse Rate 82 82 Respiratory Rate 20 Blood Pressure Pulse Oximetry 98 98 Oxygen Delivery Room Air Room Air 11/02/22 22:00 11/02/22 23:33 11/03/22 00:00 Temperature 97.4 F L Pulse Rate 78 79 81 Respiratory Rate 18 Blood Pressure 144/44 H Pulse Oximetry 97 Oxygen Delivery 11/03/22 00:00 11/03/22 02:00 11/03/22 03:22 Temperature Pulse Rate 82 90 78 Respiratory Rate 18 Blood Pressure Pulse Oximetry 97 Oxygen Delivery Room Air 11/03/22 03:22 11/03/22 04:00 11/03/22 06:00 Temperature 99 F Pulse Rate 90 78 76 Respiratory Rate 18 20 Blood Pressure 136/52 L Pulse Oximetry 97 97 Oxygen Delivery Room Air 11/03/22 07:47 11/03/22 08:00 11/03/22 10:00 Temperature 97.9 F Pulse Rate 73 73 69 Respiratory Rate 20 Blood Pressure 167/54 H Pulse Oximetry 96 Oxygen Delivery 11/03/22 11:46 11/03/22 12:00 11/03/22 14:00 Temperature 97.5 F L Pulse Rate 72 69 71 Respiratory Rate 18 Blood Pressure 176/55 H Pulse Oximetry 96 Oxygen Delivery 11/03/22 16:00 11/03/22 16:00 11/03/22 18:00 Temperature 97.8 F Pulse Rate 69 68 71 Respiratory Rate 20 Blood Pressure 161/55 H Pulse Oximetry 97 Oxygen Delivery 11/03/22 19:40 Temperature 97.6 F Pulse Rate 63 Respiratory Rate 20 Blood Pressure 122/40 L Pulse Oximetry 96 Oxygen Delivery Intake/Output Intake/Output: Intake & Output 10/31/22 11/01/22 11/02/22 11/03/22 23:59 23:59 23:59 23:59 Intake Total 70 8225 685 3556 Output Total 600 1000 0 Balance 70 1210 -200 1290 Meds/Resu
[2022-11-03] MEDS: rOPINIRole HCL 0.5 MG TABLET 1.5 MG PO (20:11)
[2022-11-04] VITALS (9 sets, daily range): BP systolic 121–174; BP diastolic 44–55; PULSE 52–68; RESP 16–20; TEMP 36.2–36.9; O2SAT 98–100; BMI 23.8
[2022-11-04 04:51] LABS: Hematocrit 23.7 % (37.0-47.0); Hemoglobin 7.4 g/dL (12.0-15.0); Mean Corpuscular HGB Conc 31.2 g/dl (32-36); Mean Corpuscular Hemoglobin 30.1 pg (26-34); Mean Corpuscular Volume 96.3 fl (80-100); Mean Platelet Volume 10.1 fl (7.4-10.4); Platelet Count Result 130 k/mm3 (150-375); Red Blood Count 2.46 M/mm3 (4.2-5.4); Red Cell Distribution Width 15.8 % (11.5-14.5); White Blood Count 6.4 K/mm3 (4.5-10.0)
[2022-11-04 05:05] LABS: Alanine Aminotransferase 6 U/L (6-35); Albumin Level 2.8 g/dL (3.5-5.1); Alkaline Phosphatase 95 U/L (38-126); Anion Gap 4 mmol/L (8-16); Aspartate Amino Transferase 19 U/L (14-36); Bilirubin,Total 0.6 mg/dL (0.2-1.3); Blood Urea Nitrogen 41 mg/dL (7-17); Calcium 9.2 mg/dL (8.4-10.2); Carbon Dioxide 37 mmol/L (22-30); Chloride 94 mmol/L (98-107); Estimated CRCL calculation 12 ml/min; Estimated Glomerular Filt Rate 10; Glucose 132 mg/dL (65-110); Phosphorus 3.7 mg/dL (2.5-4.5); Potassium 3.5 mmol/L (3.4-5.0); Sodium 135 mmol/L (137-145)
[2022-11-04] MEDS: levETIRAcetam 250 MG TABLET 750 MG PO ×2 (08:15→20:03)
[2022-11-04] MEDS: NIFEdipine 30 MG TAB.ER.24 PO (08:15)
[2022-11-04] MEDS: hydrALAZINE HCL 50 MG TABLET 100 MG PO ×3 (08:15→17:53)
[2022-11-04] MEDS: rOPINIRole HCL 0.5 MG TABLET PO ×2 (08:15→17:55)
[2022-11-04] MEDS: FOLIC ACID 0.4 MG TABLET PO (08:16)
[2022-11-04] MEDS: allopurinoL 100 MG TABLET PO (08:16)
[2022-11-04] MEDS: TIZANIDINE HCL 4 MG TABLET PO (08:16)
[2022-11-04] MEDS: LOSARTAN POTASSIUM 50 MG TABLET PO (08:16)
[2022-11-04] MEDS: FUROSEMIDE 80 MG TABLET BY MOUTH (08:16)
[2022-11-04] MEDS: DOCUSATE SODIUM 100 MG CAPSULE 200 MG PO (08:16)
[2022-11-04] MEDS: cloNIDine HCL 0.1 MG TABLET PO ×3 (08:16→17:52)
[2022-11-04] MEDS: GENTAMICIN SULFATE 0.1% CR 15 GM TUBE 1 APPLIC TOPICAL (08:17)
[2022-11-04] MEDS: lamoTRIgine 100 MG TABLET PO ×2 (08:17→20:04)
[2022-11-04] MEDS: lamoTRIgine 50 MG TABLET PO ×2 (08:17→20:03)
[2022-11-04] MEDS: AMANTADINE HCL 100 MG CAPSULE PO (08:17)
[2022-11-04] MEDS: PANTOPRAZOLE SODIUM IV 40 MG VIAL IV PUSH ×2 (08:17→20:03)
[2022-11-04] MEDS: FLUTICASONE PROPIONATE 0.05% NA SPR 16 GM BTL (*BKC) 1 SPRAY NASAL (08:18)
[2022-11-04] MEDS: HYDROcodone/acetaminophen (*CRX) 10-325 MG TABLET 1 TAB PO (08:24)
[2022-11-04] MEDS: PREGABALIN (*CRX) 50 MG CAPSULE PO ×2 (08:24→18:02)
--- NOTE | 2022-11-04 10:33 | PM.PNNEP ---
Progress Note: A&P Assessment and Plan (1) End stage renal disease: Code(s): N18.6 - End stage renal disease Status: Chronic Assessment and Plan: HD tomorrow and outpatient schedule of T/T/S follow electrolytes, volume status, and clearance re-attempt peritoneal dialysis once abdomen heals (as an outpatient) (2) S/P appendectomy: Code(s): Z90.49 - Acquired absence of other specified parts of digestive tract Status: Acute Assessment and Plan: s/p laparoscopic appendectomy and adhesiolysis s/p revision of peritoneal dialysis catheter as well postop care as outlined by Surgery (3) Hematemesis: Code(s): K92.0 - Hematemesis Status: Acute Assessment and Plan: reportedly has been having this issue on/off for the last 6 months GI following s/p EGD with findings noted: reflux esophagitis + ulcer ulcerated gastric lesion/mass PRBC transfusion per protocol follow trend of H/H (4) Hypertension: Code(s): I10 - Essential (primary) hypertension Status: Acute Assessment and Plan: reasonable control at this time resumed on home medications follow trend of hemodynamics (5) Paroxysmal A-fib: Code(s): I48.0 - Paroxysmal atrial fibrillation Status: Acute Assessment and Plan: rate control strategy anticoagulation on hold for now (6) Anemia: Code(s): D64.9 - Anemia, unspecified Status: Acute Assessment and Plan: partly related to ESRD but worsened by #3 GI following follow trend of H/H Epogen with dialysis Will continue to follow. Subjective Date/time seen: 11/04/22 10:33 Interval history: Follow-up for end stage renal disease on hemodialysis. Appears to be doing relatively well at the time of my visit; still has abdominal pain described as a achy sensation and is tolerable; no other acute issues/complaints voiced; no events overnight or earlier this morning; at bedside and we discussed the situation. Exam Narrative: General: ill appearing female in NAD Heart: normal S1 and S2; no rub Lungs: clear to auscultation Abdomen: soft, nontender, nondistended, positive bowel sounds Extremities: no cyanosis or clubbing; no edema Skin: no rash Objective Data Vital Signs Vital Signs: Vital Signs Temp Pulse Resp BP Pulse Ox O2 Del Method 11/04/22 10:32 169/55 H 11/04/22 08:00 65 11/04/22 08:00 Room Air 11/04/22 07:40 98.4 F 68 20 174/54 H 98 11/04/22 06:00 65 11/04/22 04:00 97.5 F L 64 20 157/53 H 98 11/04/22 04:00 Room Air 11/04/22 04:00 66 11/04/22 02:00 66 11/04/22 00:00 63 11/04/22 00:00 Room Air 11/04/22 00:00 97.2 F L 63 20 143/52 H 100 11/03/22 22:00 63 11/03/22 20:00 68 11/03/22 20:00 Room Air 11/03/22 19:40 97.6 F 63 20 122/40 L 96 11/03/22 18:00 71 11/03/22 16:00 97.8 F 68 20 161/55 H 97 11/03/22 16:00 69 11/03/22 14:00 71 11/03/22 12:00 69 11/03/22 11:46 97.5 F L 72 18 176/55 H 96 Intake/Output Intake/Output: Intake & Output 11/01/22 11/02/22 11/03/22 11/04/22 23:59 23:59 23:59 23:59 Intake Total 6828 172 6341 422 Output Total 600 1000 200 200 Balance 1210 -200 1090 222 Meds/Results Medications: Active Medications Generic Name Dose Route Start Last Admin Trade Name Freq PRN Reason Stop Dose Admin Acetaminophen 650 mg 11/04/22 10:17 Acetaminophen 325 Mg Tablet PO Q4H PRN Mild Pain (1-3) or Fever Hydrocodone Bitart/Acetaminophen 1 tab 11/01/22 03:29 11/04/22 08:24 Hydrocodone/Acetaminophen (*Crx) 10-325 Mg Tablet PO 1 tab QID PRN Administration Pain Rated 7-10 Allopurinol 100 mg 11/01/22 08:00 11/04/22 08:16 Allopurinol 100 Mg Tablet PO 100 mg DAILY@0800 PHYLICIA Administration Alprazolam 0.5 mg 11/01/22 03:29
--- NOTE | 2022-11-04 10:33 | P.PNNP_ITS ---
Progress Note: A&P Assessment and Plan (1) End stage renal disease: Code(s): N18.6 - End stage renal disease Status: Chronic Assessment and Plan: * HD tomorrow and outpatient schedule of T/T/S * follow electrolytes, volume status, and clearance * re-attempt peritoneal dialysis once abdomen heals (as an outpatient) (2) S/P appendectomy: Code(s): Z90.49 - Acquired absence of other specified parts of digestive tract Status: Acute Assessment and Plan: * s/p laparoscopic appendectomy and adhesiolysis * s/p revision of peritoneal dialysis catheter as well * postop care as outlined by Surgery (3) Hematemesis: Code(s): K92.0 - Hematemesis Status: Acute Assessment and Plan: * reportedly has been having this issue on/off for the last 6 months * GI following * s/p EGD with findings noted: * reflux esophagitis + ulcer * ulcerated gastric lesion/mass * PRBC transfusion per protocol * follow trend of H/H (4) Hypertension: Code(s): I10 - Essential (primary) hypertension Status: Acute Assessment and Plan: * reasonable control at this time * resumed on home medications * follow trend of hemodynamics (5) Paroxysmal A-fib: Code(s): I48.0 - Paroxysmal atrial fibrillation Status: Acute Assessment and Plan: * rate control strategy * anticoagulation on hold for now (6) Anemia: Code(s): D64.9 - Anemia, unspecified Status: Acute Assessment and Plan: * partly related to ESRD but worsened by #3 * GI following * follow trend of H/H * Epogen with dialysis Will continue to follow. Subjective Date/time seen: 11/04/22 10:33 Interval history: Follow-up for end stage renal disease on hemodialysis. Appears to be doing relatively well at the time of my visit; still has abdominal pain described as a achy sensation and is tolerable; no other acute issues/complaints voiced; no events overnight or earlier this morning; at bedside and we discussed the situation. Exam Narrative: General: ill appearing female in NAD Heart: normal S1 and S2; no rub Lungs: clear to auscultation Abdomen: soft, nontender, nondistended, positive bowel sounds Extremities: no cyanosis or clubbing; no edema Skin: no rash Objective Data Vital Signs Vital Signs: Vital Signs Temp Pulse Resp BP Pulse Ox O2 Del Method 11/04/22 10:32 169/55 H 11/04/22 08:00 65 11/04/22 08:00 Room Air 11/04/22 07:40 98.4 F 68 20 174/54 H 98 11/04/22 06:00 65 11/04/22 04:00 97.5 F L 64 20 157/53 H 98 11/04/22 04:00 Room Air 11/04/22 04:00 66 11/04/22 02:00 66 11/04/22 00:00 63 11/04/22 00:00 Room Air 11/04/22 00:00 97.2 F L 63 20 143/52 H 100 11/03/22 22:00 63 11/03/22 20:00 68 11/03/22 20:00 Room Air 11/03/22 19:40 97.6 F 63 20 122/40 L 96 11/03/22 18:00 71 11/03/22 16:00 97.8 F 68 20 161/55 H 97 11/03/22 16:00 69 11/03/22 14:00 71 11/03/22 12:00 69 11/03/22 11:46 97.5 F L 72 18 176/55 H 96 Intake/Output Intake/Output:
[2022-11-04] MEDS: polyethylene glycoL 3350 17 GM POWD.PACK PO (11:02)
--- NOTE | 2022-11-04 11:07 | PM.IMPN ---
Progress Note: A&P Assessment and Plan (1) S/P dialysis catheter insertion: Code(s): Z95.828 - Presence of other vascular implants and grafts; Z99.2 - Dependence on renal dialysis Status: Acute Assessment and Plan: See operative report. The patient has a peritoneal dialysis catheter to her abdomen now. (2) History of appendectomy: Code(s): Z90.49 - Acquired absence of other specified parts of digestive tract Status: Acute Assessment and Plan: the patient had an laparoscopic appendectomy, adhesiolysis and revision of peritoneal dialysis catheter. See operative report. (3) Neuropathy: Code(s): G62.9 - Polyneuropathy, unspecified Status: Acute Assessment and Plan: continue with Lyrica (4) Anxiety and depression: Code(s): F41.9 - Anxiety disorder, unspecified; F32.A - Depression, unspecified Status: Acute Assessment and Plan: continue with Trintellix (5) Hypertension: Code(s): I10 - Essential (primary) hypertension Status: Acute Assessment and Plan: continue with losartan, clonidine, and hydralazine (6) Paroxysmal A-fib: Code(s): I48.0 - Paroxysmal atrial fibrillation Status: Acute Assessment and Plan: I am holding her Eliquis as she just had surgery. Please reinstate Eliquis when okay with surgery. (7) End stage renal disease: Code(s): N18.6 - End stage renal disease Status: Chronic Assessment and Plan: Per Nephrology (8) Iron deficiency anemia: Qualifiers: Iron deficiency anemia type: chronic blood loss Qualified Code(s): D50.0 - Iron deficiency anemia secondary to blood loss (chronic) Code(s): D50.9 - Iron deficiency anemia, unspecified Status: Acute Assessment and Plan: the patient received 1 unit of packed red blood cells and is now going to get her 2nd unit. could be related to her chronic renal failure. Continue with ferric citrate if formulary. Continue with folic acid Appreciate GI input. EGD results noted. Waiting biopsy results. Continue PPI (9) Gastric mass: Code(s): K31.89 - Other diseases of stomach and duodenum Status: Acute Assessment and Plan: Biopsies pending. appreciate GI input. (10) Peptic ulcer disease: Code(s): K27.9 - Peptic ulcer, site unspecified, unspecified as acute or chronic, without hemorrhage or perforation Status: Acute Assessment and Plan: Continue PPI Subjective Date/time seen: 11/04/22 11:07 Interval history: Still weak, no significant change from yesterday. Complaining of ongoing abdominal pain. Exam Const: General: cooperative, comfortable, no acute distress, well developed, awake, Physically active, ill appearing, tired appearing, average body habitus, well nourished and thin Nutritional Appearance: average body habitus, well nourished and thin Orientation/consciousness: oriented to person and oriented to place Limitations: no limitations HENMT: Head: normal to inspection, No palpable skull fracture present, normocephalic and atraumatic Ears: hearing grossly normal bilaterally and external ears normal Face/Nose/Sinus: Normal external nose present and Normal nares present Eyes: General: appearance normal, both eyes and all related structures Alignment and Position: alignment normal Periorbital: periorbital findings normal Eyelids: eyelids normal Sclera: sclerae normal Pupils: Equal, round and reactive pupils present EOM: EOMs intact bilaterally Neck: Neck: normal visual inspection, full ROM, no lymphadenopathy, trachea midline and supple Carotids: normal carotid upstroke Chest: Chest palpation & inspection: normal inspection of the chest Resp: Effort & Inspection: normal respiratory effort Auscultation: clear to auscultation bilaterally Cardio: Palpation: normal PMI Rate: regular rate Rhythm: regular rhythm Heart sounds: S1 normal heart
--- NOTE | 2022-11-04 11:20 | PC.NURSE ---
This patient, Yasmin Colbert, was transferred to [[id number] ] on 11/04/22 at 1120. Personal belongings and home meds sent with patient. Report given to [Natalya ]. Appropriate documentation sent with patient.
--- NOTE | 2022-11-04 11:40 | PC.NURSE ---
This patient, Yasmin Colbert, was received from [facility] on 11/04/22 at 1140. Patient/family oriented to unit policies and routines.
[2022-11-04] MEDS: ALPRAZolam (*CRX) 0.5 MG TABLET PO (12:31)
[2022-11-04] MEDS: MONTELUKAST SODIUM 10 MG TABLET PO (17:54)
[2022-11-04] MEDS: rOPINIRole HCL 0.5 MG TABLET 1.5 MG PO (20:03)
[2022-11-04] MEDS: ATORVASTATIN 40 MG TABLET PO (20:04)
[2022-11-05] VITALS (16 sets, daily range): BP systolic 148–190; BP diastolic 50–80; PULSE 57–70; RESP 17–18; TEMP 36–36.7; O2SAT 94–99
--- NOTE | 2022-11-05 06:55 | P.CDI_ITS ---
severe CDI Query Clarification Request BMI 24.1 Nutritional Diagnostic Statement Severe protein calorie malnutrition related to chronic illness, loss of appetite, vomiting as evidence by report of > 100 lb weight loss, 37% / 1 year Past Weight History No weight in EMR. Weight loss -100 lb/ 1.5 years -37% weight loss/1.5 years. Pleaser refer to the comprehensive nutrition assessment for further information. Please clarify severity of protein calorie malnutrition * Mild * Moderate * Severe * Other/Unspecified
[2022-11-05 06:58] LABS: Alanine Aminotransferase 8 U/L (6-35); Albumin Level 2.9 g/dL (3.5-5.1); Alkaline Phosphatase 87 U/L (38-126); Anion Gap 7 mmol/L (8-16); Aspartate Amino Transferase 25 U/L (14-36); Bilirubin,Total 0.8 mg/dL (0.2-1.3); Blood Urea Nitrogen 52 mg/dL (7-17); Calcium 9.2 mg/dL (8.4-10.2); Carbon Dioxide 34 mmol/L (22-30); Chloride 93 mmol/L (98-107); Estimated CRCL calculation 10 ml/min; Estimated Glomerular Filt Rate 8; Glucose 124 mg/dL (65-110); Phosphorus 3.7 mg/dL (2.5-4.5); Potassium 4.5 mmol/L (3.4-5.0); Sodium 134 mmol/L (137-145)
--- NOTE | 2022-11-05 07:34 | WPDGIPROGNO ---
Progress Note: A&P Assessment and Plan (1) End stage renal disease: Code(s): N18.6 - End stage renal disease Status: Chronic Assessment and Plan: Her peritoneal dialysis catheter not yet attempted to be used. She is fairly certain she is going to hemodialysis today (2) S/P appendectomy: Code(s): Z90.49 - Acquired absence of other specified parts of digestive tract Status: Acute Assessment and Plan: s/p laparoscopic appendectomy and adhesiolysis s/p revision of peritoneal dialysis catheter as well postop care as outlined by Surgery (3) Hematemesis: Code(s): K92.0 - Hematemesis Status: Acute Assessment and Plan: reportedly has been having this issue on/off for the last 6 months s/p EGD with findings noted: reflux esophagitis + ulcer ulcerated gastric lesion/mass PRBC transfusion per protocol follow trend of H/H (4) Hypertension: Code(s): I10 - Essential (primary) hypertension Status: Acute Assessment and Plan: reasonable control at this time resumed on home medications follow trend of hemodynamics (5) Paroxysmal A-fib: Code(s): I48.0 - Paroxysmal atrial fibrillation Status: Acute Assessment and Plan: rate control strategy anticoagulation on hold for now (6) Anemia: Code(s): D64.9 - Anemia, unspecified Status: Acute Assessment and Plan: partly related to ESRD but worsened by #3 follow trend of H/H Epogen with dialysis Will continue to follow. Plan I told her that we will let her know when we get results of the biopsies. She understands that she may need surgery. Dialysis is scheduled for today. Will advance to soft diet. Subjective Date/time seen: 11/05/22 07:34 She states that she had 1 episode of emesis yesterday. Today she feels good. She believes that she is getting enough to eat. She states that she is tolerating her full liquid diet. She is willing to try a soft diet. I discussed with her the results of her endoscopy the reveal a pre-pyloric mass with several ulcers. I told her that biopsies are still pending. I explained this causes a relative gastric outlet obstruction and surgery may be necessary. She understands that this could be cancer. Exam Const: General: comfortable, no acute distress, alert and awake HENMT: Face/Nose/Sinus: Normal nares present Eyes: Sclera: sclerae normal Neck: Neck: supple Resp: Effort & Inspection: normal respiratory effort Cardio: Rate: regular rate GI: Inspection: non-distended, incision (Small amount of blood from PD catheter exit site skin) and other (Trocar sites from appendectomy dry and healing) GI Palp: Yes Soft to palpation, Yes Tenderness to palpation present (GI), No Guarding due to palpation present (GI) and No Rebound tenderness present Skin: General skin exam: normal color Neuro: General: moves all extremities and no focal motor deficits Speech: normal speech Extrem: General: no calf tenderness and no edema Psych: Speech and movement: Clear speech present Affect: normal affect Attitude: cooperative Insight: Fair insight present (Psych) Judgement: Fair judgement present (Psych) Objective Data Vital Signs Vital Signs: Vital Signs - 24 hr 11/04/22 07:40 11/04/22 08:00 11/04/22 08:00 Temperature 36.9 C Pulse Rate 68 65 Respiratory Rate 20 Blood Pressure 174/54 H Pulse Oximetry 98 Oxygen Delivery Room Air 11/04/22 10:52 11/04/22 18:27 11/04/22 22:00 Temperature 36.2 C L 36.5 C Pulse Rate 52 L 52 L Respiratory Rate 16 16 Blood Pressure 169/55 H 123/44 L 121/47 L Pulse Oximetry 100 100 Oxygen Delivery 11/04/22 20:00 11/05/22 06:45 Temperature 36.7 C Pulse Rate 62 Respiratory Rate 18 Blood Pressure 156/50 H Pulse Oximetry 97 Oxygen Delivery Room Air Intake/Output Intake/Output: Intake & Output 11/02/22 11/03/22 11/04/22 11/05/22
[2022-11-05] MEDS: cloNIDine HCL 0.1 MG TABLET PO ×3 (08:56→18:24)
[2022-11-05] MEDS: polyethylene glycoL 3350 17 GM POWD.PACK PO (08:56)
[2022-11-05] MEDS: FLUTICASONE PROPIONATE 0.05% NA SPR 16 GM BTL (*BKC) 1 SPRAY NASAL (08:56)
[2022-11-05] MEDS: PANTOPRAZOLE SODIUM IV 40 MG VIAL IV PUSH ×2 (08:56→20:53)
[2022-11-05] MEDS: levETIRAcetam 250 MG TABLET 750 MG PO ×2 (08:57→20:52)
[2022-11-05] MEDS: FOLIC ACID 0.4 MG TABLET PO (08:57)
[2022-11-05] MEDS: DOCUSATE SODIUM 100 MG CAPSULE 200 MG PO (08:57)
[2022-11-05] MEDS: rOPINIRole HCL 0.5 MG TABLET PO ×2 (08:58→18:11)
[2022-11-05] MEDS: AMANTADINE HCL 100 MG CAPSULE PO (08:58)
[2022-11-05] MEDS: lamoTRIgine 100 MG TABLET PO ×2 (08:58→20:52)
[2022-11-05] MEDS: LOSARTAN POTASSIUM 50 MG TABLET PO (08:58)
[2022-11-05] MEDS: allopurinoL 100 MG TABLET PO (08:58)
[2022-11-05] MEDS: hydrALAZINE HCL 50 MG TABLET 100 MG PO ×3 (08:59→18:10)
[2022-11-05] MEDS: lamoTRIgine 50 MG TABLET PO ×2 (08:59→20:53)
[2022-11-05] MEDS: NIFEdipine 30 MG TAB.ER.24 PO (08:59)
[2022-11-05] MEDS: PREGABALIN (*CRX) 50 MG CAPSULE PO ×2 (09:00→18:23)
--- NOTE | 2022-11-05 10:58 | PM.IMPN ---
Progress Note: A&P Assessment and Plan (1) S/P dialysis catheter insertion: Code(s): Z95.828 - Presence of other vascular implants and grafts; Z99.2 - Dependence on renal dialysis Status: Acute Assessment and Plan: See operative report. The patient has a peritoneal dialysis catheter to her abdomen now. (2) History of appendectomy: Code(s): Z90.49 - Acquired absence of other specified parts of digestive tract Status: Acute Assessment and Plan: the patient had an laparoscopic appendectomy, adhesiolysis and revision of peritoneal dialysis catheter. See operative report. (3) Neuropathy: Code(s): G62.9 - Polyneuropathy, unspecified Status: Acute Assessment and Plan: continue with Lyrica (4) Anxiety and depression: Code(s): F41.9 - Anxiety disorder, unspecified; F32.A - Depression, unspecified Status: Acute Assessment and Plan: continue with Trintellix (5) Hypertension: Code(s): I10 - Essential (primary) hypertension Status: Acute Assessment and Plan: continue with losartan, clonidine, and hydralazine (6) Paroxysmal A-fib: Code(s): I48.0 - Paroxysmal atrial fibrillation Status: Acute Assessment and Plan: I am holding her Eliquis as she just had surgery. Please reinstate Eliquis when okay with surgery. (7) End stage renal disease: Code(s): N18.6 - End stage renal disease Status: Chronic Assessment and Plan: Per Nephrology (8) Iron deficiency anemia: Qualifiers: Iron deficiency anemia type: chronic blood loss Qualified Code(s): D50.0 - Iron deficiency anemia secondary to blood loss (chronic) Code(s): D50.9 - Iron deficiency anemia, unspecified Status: Acute Assessment and Plan: the patient received 1 unit of packed red blood cells and is now going to get her 2nd unit. could be related to her chronic renal failure. Continue with ferric citrate if formulary. Continue with folic acid Appreciate GI input. EGD results noted. Waiting biopsy results. Continue PPI (9) Gastric mass: Code(s): K31.89 - Other diseases of stomach and duodenum Status: Acute Assessment and Plan: Biopsies pending. appreciate GI input. (10) Peptic ulcer disease: Code(s): K27.9 - Peptic ulcer, site unspecified, unspecified as acute or chronic, without hemorrhage or perforation Status: Acute Assessment and Plan: Continue PPI Plan Await biopsy results and plan accordingly. Subjective Date/time seen: 11/05/22 10:58 Interval history: Sitting in a chair. Denies any new complaints. No shortness of breath Currently on room air Exam Const: General: cooperative, comfortable, no acute distress, well developed, awake, Physically active, ill appearing, tired appearing, average body habitus, well nourished and thin Nutritional Appearance: average body habitus, well nourished and thin Orientation/consciousness: oriented to person and oriented to place Limitations: no limitations HENMT: Head: normal to inspection, No palpable skull fracture present, normocephalic and atraumatic Ears: hearing grossly normal bilaterally and external ears normal Face/Nose/Sinus: Normal external nose present and Normal nares present Eyes: General: appearance normal, both eyes and all related structures Alignment and Position: alignment normal Periorbital: periorbital findings normal Eyelids: eyelids normal Sclera: sclerae normal Pupils: Equal, round and reactive pupils present EOM: EOMs intact bilaterally Neck: Neck: normal visual inspection, full ROM, no lymphadenopathy, trachea midline and supple Carotids: normal carotid upstroke Chest: Chest palpation & inspection: normal inspection of the chest Resp: Effort & Inspection: normal respiratory effort Auscultation: clear to auscultation bilaterally Cardio: Palpation: normal PMI Rate: regular rat
[2022-11-05] MEDS: ALPRAZolam (*CRX) 0.5 MG TABLET PO (13:53)
[2022-11-05] MEDS: HYDROcodone/acetaminophen (*CRX) 10-325 MG TABLET 1 TAB PO (13:53)
[2022-11-05] MEDS: EPOETIN ALFA-EPBX 10,000 UNITS/ML VIAL 10000 UNITS IV PUSH (15:45)
--- NOTE | 2022-11-05 16:20 | PM.PNNEP ---
Progress Note: A&P Assessment and Plan (1) End stage renal disease: Code(s): N18.6 - End stage renal disease Status: Chronic Assessment and Plan: HD today and outpatient schedule of T/T/S follow electrolytes, volume status, and clearance re-attempt peritoneal dialysis once abdomen heals (as an outpatient) (2) S/P appendectomy: Code(s): Z90.49 - Acquired absence of other specified parts of digestive tract Status: Acute Assessment and Plan: s/p laparoscopic appendectomy and adhesiolysis s/p revision of peritoneal dialysis catheter as well postop care as outlined by Surgery (3) Hematemesis: Code(s): K92.0 - Hematemesis Status: Acute Assessment and Plan: reportedly has been having this issue on/off for the last 6 months GI following s/p EGD with findings noted: reflux esophagitis + ulcer ulcerated gastric lesion/mass - pthololgy pending PRBC transfusion per protocol follow trend of H/H (4) Hypertension: Code(s): I10 - Essential (primary) hypertension Status: Acute Assessment and Plan: reasonable control at this time resumed on home medications follow trend of hemodynamics (5) Paroxysmal A-fib: Code(s): I48.0 - Paroxysmal atrial fibrillation Status: Acute Assessment and Plan: rate control strategy anticoagulation on hold for now (6) Anemia: Code(s): D64.9 - Anemia, unspecified Status: Acute Assessment and Plan: partly related to ESRD but worsened by #3 GI following follow trend of H/H Epogen with dialysis Will continue to follow. Subjective Date/time seen: 11/05/22 16:20 Interval history: Follow-up for end stage renal disease on hemodialysis. Tolerating hemodialysis treatment at the time of my visit (seen on HD at 3:50PM); no apparent distress noted at this time; still with some on/off abdominal pain but tolerable; no issues overnight or earlier this AM. Exam Narrative: General: ill appearing female in NAD Heart: normal S1 and S2; no rub Lungs: clear to auscultation Abdomen: soft, nontender, nondistended, positive bowel sounds Extremities: no cyanosis or clubbing; no edema Skin: no rash Objective Data Vital Signs Vital Signs: Vital Signs (72 hours) 11/04/22 10:52 11/04/22 18:27 11/04/22 22:00 Temperature 97.2 F L 97.7 F Pulse Rate 52 L 52 L Respiratory Rate 16 16 Blood Pressure 169/55 H 123/44 L 121/47 L Pulse Oximetry 100 100 Oxygen Delivery 11/04/22 20:00 11/05/22 06:45 11/05/22 07:54 Temperature 98.0 F Pulse Rate 62 Respiratory Rate 18 Blood Pressure 156/50 H Pulse Oximetry 97 Oxygen Delivery Room Air Room Air 11/05/22 08:11 11/05/22 14:04 11/05/22 14:21 Temperature 98.0 F Pulse Rate 57 L 59 L Respiratory Rate 18 Blood Pressure 177/74 H 161/72 H Pulse Oximetry 94 Oxygen Delivery Room Air 11/05/22 14:40 11/05/22 15:00 11/05/22 15:20 Temperature Pulse Rate 58 L 57 L 58 L Respiratory Rate Blood Pressure 169/76 H 183/80 H 182/73 H Pulse Oximetry Oxygen Delivery 11/05/22 15:40 11/05/22 16:00 11/05/22 16:20 Temperature Pulse Rate 70 60 65 Respiratory Rate Blood Pressure 190/80 H 153/63 H 158/68 H Pulse Oximetry Oxygen Delivery Intake/Output Intake/Output: Intake & Output 11/03/22 11/04/22 11/05/22 11/06/22 23:59 23:59 23:59 23:59 Intake Total 1290 1142 1300 200 Output Total 820 855 8082 Balance 1090 942 -300 200 Meds/Results Medications: Active Medications Generic Name Dose Route Start Last Admin Trade Name Freq PRN Reason Stop Dose Admin Acetaminophen 650 mg 11/04/22 10:17 Acetaminophen 325 Mg Tablet PO Q4H PRN Mild Pain (1-3) or Fever Hydrocodone Bitart/Acetaminophen 1 tab 11/01/22 03:29 11/06/22 04:05 Hydrocodone/Acetaminophen (*Crx) 10-325 Mg Tablet PO 1 tab QID PRN Administration
--- NOTE | 2022-11-05 16:20 | P.PNNP_ITS ---
Progress Note: A&P Assessment and Plan (1) End stage renal disease: Code(s): N18.6 - End stage renal disease Status: Chronic Assessment and Plan: * HD today and outpatient schedule of T/T/S * follow electrolytes, volume status, and clearance * re-attempt peritoneal dialysis once abdomen heals (as an outpatient) (2) S/P appendectomy: Code(s): Z90.49 - Acquired absence of other specified parts of digestive tract Status: Acute Assessment and Plan: * s/p laparoscopic appendectomy and adhesiolysis * s/p revision of peritoneal dialysis catheter as well * postop care as outlined by Surgery (3) Hematemesis: Code(s): K92.0 - Hematemesis Status: Acute Assessment and Plan: * reportedly has been having this issue on/off for the last 6 months * GI following * s/p EGD with findings noted: * reflux esophagitis + ulcer * ulcerated gastric lesion/mass - pthololgy pending * PRBC transfusion per protocol * follow trend of H/H (4) Hypertension: Code(s): I10 - Essential (primary) hypertension Status: Acute Assessment and Plan: * reasonable control at this time * resumed on home medications * follow trend of hemodynamics (5) Paroxysmal A-fib: Code(s): I48.0 - Paroxysmal atrial fibrillation Status: Acute Assessment and Plan: * rate control strategy * anticoagulation on hold for now (6) Anemia: Code(s): D64.9 - Anemia, unspecified Status: Acute Assessment and Plan: * partly related to ESRD but worsened by #3 * GI following * follow trend of H/H * Epogen with dialysis Will continue to follow. Subjective Date/time seen: 11/05/22 16:20 Interval history: Follow-up for end stage renal disease on hemodialysis. Tolerating hemodialysis treatment at the time of my visit (seen on HD at 3:50PM); no apparent distress noted at this time; still with some on/off abdominal pain but tolerable; no issues overnight or earlier this AM. Exam Narrative: General: ill appearing female in NAD Heart: normal S1 and S2; no rub Lungs: clear to auscultation Abdomen: soft, nontender, nondistended, positive bowel sounds Extremities: no cyanosis or clubbing; no edema Skin: no rash Objective Data Vital Signs Vital Signs: Vital Signs (72 hours) 11/04/22 10:52 11/04/22 18:27 11/04/22 22:00 Temperature 97.2 F L 97.7 F Pulse Rate 52 L 52 L Respiratory Rate 16 16 Blood Pressure 169/55 H 123/44 L 121/47 L Pulse Oximetry 100 100 Oxygen Delivery 11/04/22 20:00 11/05/22 06:45 11/05/22 07:54 Temperature 98.0 F Pulse Rate 62 Respiratory Rate 18 Blood Pressure 156/50 H Pulse Oximetry 97 Oxygen Delivery Room Air Room Air 11/05/22 08:11 11/05/22 14:04 11/05/22 14:21 Temperature 98.0 F Pulse Rate 57 L 59 L Respiratory Rate 18 Blood Pressure 177/74 H 161/72 H Pulse Oximetry 94 Oxygen Delivery Room Air 11/05/22 14:40 11/05/22 15:00 11/05/22 15:20 Temperature Pulse Rate 58 L 57 L 58 L Respiratory Rate Blood Pressure 169/76 H 183/80 H 182/73 H
--- NOTE | 2022-11-05 16:40 | PCPTNOTE ---
On 11/05/22, the student, [Lucy Mcguire], provided care and completed [facility] documentation on this patient. I have reviewed the student's documentation and agree with the findings.
[2022-11-05] MEDS: MONTELUKAST SODIUM 10 MG TABLET PO (18:12)
[2022-11-05] MEDS: ATORVASTATIN 40 MG TABLET PO (20:52)
[2022-11-05] MEDS: rOPINIRole HCL 0.5 MG TABLET 1.5 MG PO (20:53)
[2022-11-06] MEDS: HYDROcodone/acetaminophen (*CRX) 10-325 MG TABLET 1 TAB PO ×2 (04:05→21:00)
[2022-11-06 05:36] VITALS: BP 190/63; PULSE 67; RESP 20; TEMP 36.6; O2SAT 97
[2022-11-06] MEDS: hydrALAZINE HCL 50 MG TABLET 100 MG PO ×3 (06:17→16:45)
[2022-11-06 07:40] LABS: Reference Lab Test Name HGB A1C
[2022-11-06 07:41] LABS: Reference Lab Test Result 6.1
[2022-11-06] MEDS: FLUTICASONE PROPIONATE 0.05% NA SPR 16 GM BTL (*BKC) 1 SPRAY NASAL (08:58)
[2022-11-06] MEDS: AMANTADINE HCL 100 MG CAPSULE PO (09:00)
[2022-11-06] MEDS: lamoTRIgine 100 MG TABLET PO ×2 (09:00→20:54)
[2022-11-06] MEDS: FUROSEMIDE 80 MG TABLET BY MOUTH (09:00)
[2022-11-06] MEDS: FOLIC ACID 0.4 MG TABLET PO (09:00)
[2022-11-06] MEDS: lamoTRIgine 50 MG TABLET PO ×2 (09:00→20:54)
[2022-11-06] MEDS: PANTOPRAZOLE SODIUM IV 40 MG VIAL IV PUSH ×2 (09:01→20:55)
[2022-11-06] MEDS: levETIRAcetam 250 MG TABLET 750 MG PO ×2 (09:01→20:54)
[2022-11-06] MEDS: allopurinoL 100 MG TABLET PO (09:01)
[2022-11-06] MEDS: NIFEdipine 30 MG TAB.ER.24 PO (09:01)
[2022-11-06] MEDS: polyethylene glycoL 3350 17 GM POWD.PACK PO (09:02)
[2022-11-06] MEDS: rOPINIRole HCL 0.5 MG TABLET PO ×2 (09:02→16:45)
[2022-11-06] MEDS: cloNIDine HCL 0.1 MG TABLET PO ×3 (09:07→16:45)
[2022-11-06] MEDS: PREGABALIN (*CRX) 50 MG CAPSULE PO ×2 (09:07→16:45)
[2022-11-06] MEDS: DOCUSATE SODIUM 100 MG CAPSULE 200 MG PO (09:07)
[2022-11-06] MEDS: LOSARTAN POTASSIUM 100 MG TABLET PO (09:07)
--- NOTE | 2022-11-06 11:10 | PC.NURSE ---
Call made to hi to have them come flush the PD site. Message left for a call back.
--- NOTE | 2022-11-06 11:27 | PM.PNGS ---
Progress Note: A&P Assessment and Plan (1) S/P appendectomy: Code(s): Z90.49 - Acquired absence of other specified parts of digestive tract Status: Acute Assessment and Plan: Pathology showed normal, just dilated, appendix. Wounds healing well. Tolerated the surgery well. (2) Hemorrhage from dialysis catheter: Code(s): T82.838A - Hemorrhage due to vascular prosthetic devices, implants and grafts, initial encounter Status: Acute Assessment and Plan: No further bleeding but dressing each changed and catheter will need to be irrigated to avoid becoming clogged. Will order. (3) ESRD (end stage renal disease) on dialysis: Code(s): N18.6 - End stage renal disease; Z99.2 - Dependence on renal dialysis Status: Chronic (4) Gastric mass: Code(s): K31.89 - Other diseases of stomach and duodenum Status: Acute Assessment and Plan: Await pathology from EGD on 11/04/2022 Subjective Subjective Date/Time Seen: 11/06/22 11:27 Post Op day: 5 (Laparoscopic appendectomy) Patient reports: no new complaints, feels better and tolerating a regular diet (Soft and bite size diet tolerated okay) Review of Systems Review of Systems: All systems reviewed & are unremarkable except as noted in HPI and below (HPI) Exam Const: General: comfortable and awake GI: Inspection: abdominal wall ecchymosis (Resolving), non-distended, incision (Incisions healing well) and other (PD catheter dressing saturated, blood in lumen of catheter) GI Palp: Yes Soft to palpation, Yes Tenderness to palpation present (GI) (Tenderness almost gone), No Guarding due to palpation present (GI), No Hernia present, No Palpable mass present and No Rebound tenderness present Objective Data Vital Signs Vital Signs: Vital Signs - 24 hr 11/05/22 14:04 11/05/22 14:21 11/05/22 14:40 Temperature 36.7 C Pulse Rate 57 L 59 L 58 L Respiratory Rate 18 Blood Pressure 177/74 H 161/72 H 169/76 H Pulse Oximetry 94 Oxygen Delivery 11/05/22 15:00 11/05/22 15:20 11/05/22 15:40 Temperature Pulse Rate 57 L 58 L 70 Respiratory Rate Blood Pressure 183/80 H 182/73 H 190/80 H Pulse Oximetry Oxygen Delivery 11/05/22 16:00 11/05/22 16:20 11/05/22 16:40 Temperature Pulse Rate 60 65 60 Respiratory Rate Blood Pressure 153/63 H 158/68 H 166/72 H Pulse Oximetry Oxygen Delivery 11/05/22 17:00 11/05/22 17:22 11/05/22 17:26 Temperature 36.6 C Pulse Rate 61 66 65 Respiratory Rate 18 Blood Pressure 158/69 H 173/68 H 167/70 H Pulse Oximetry 95 Oxygen Delivery 11/05/22 19:55 11/05/22 20:00 11/06/22 05:36 Temperature 36.5 C 36.6 C Pulse Rate 62 67 Respiratory Rate 17 20 Blood Pressure 148/52 H 190/63 H Pulse Oximetry 99 97 Oxygen Delivery Room Air 11/06/22 08:00 Temperature Pulse Rate Respiratory Rate Blood Pressure Pulse Oximetry Oxygen Delivery Room Air Intake/Output Intake/Output: Intake & Output 11/03/22 11/04/22 11/05/22 11/06/22 23:59 23:59 23:59 23:59 Intake Total 1290 1142 1300 440 Output Total 756 537 3332 Balance 1090 942 -300 440 Meds/Results Medications: Active Medications Generic Name Dose Route Start Last Admin Trade Name Freq PRN Reason Stop Dose Admin Acetaminophen 650 mg 11/04/22 10:17 Acetaminophen 325 Mg Tablet PO Q4H PRN Mild Pain (1-3) or Fever Hydrocodone Bitart/Acetaminophen 1 tab 11/01/22 03:29 11/06/22 04:05 Hydrocodone/Acetaminophen (*Crx) 10-325 Mg Tablet PO 1 tab QID PRN Administration Pain Rated 7-10 Allopurinol 100 mg 11/01/22 08:00 11/06/22 09:01 Allopurinol 100 Mg Tablet PO 100 mg DAILY@0800 PHYLICIA Administration Alprazolam 0.5 mg 11/01/22 03:29 11/05/22 13:53 Alprazolam (*Crx) 0.5 Mg Tablet PO 0.5 mg QID PRN Administration Anxiety Amantadine HCl 100 mg 11/01/22 09:00 11/06/22 09:00 Amantadine Hcl 100 Mg Capsule PO 100 mg
--- NOTE | 2022-11-06 11:28 | PM.IMPN ---
Progress Note: A&P Assessment and Plan (1) S/P dialysis catheter insertion: Code(s): Z95.828 - Presence of other vascular implants and grafts; Z99.2 - Dependence on renal dialysis Status: Acute Assessment and Plan: See operative report. The patient has a peritoneal dialysis catheter to her abdomen now. (2) History of appendectomy: Code(s): Z90.49 - Acquired absence of other specified parts of digestive tract Status: Acute Assessment and Plan: the patient had an laparoscopic appendectomy, adhesiolysis and revision of peritoneal dialysis catheter. See operative report. (3) Neuropathy: Code(s): G62.9 - Polyneuropathy, unspecified Status: Acute Assessment and Plan: continue with Lyrica (4) Anxiety and depression: Code(s): F41.9 - Anxiety disorder, unspecified; F32.A - Depression, unspecified Status: Acute Assessment and Plan: continue with Trintellix (5) Hypertension: Code(s): I10 - Essential (primary) hypertension Status: Acute Assessment and Plan: continue with losartan, clonidine, and hydralazine (6) Paroxysmal A-fib: Code(s): I48.0 - Paroxysmal atrial fibrillation Status: Acute Assessment and Plan: Please reinstate Eliquis when okay with surgery. (7) End stage renal disease: Code(s): N18.6 - End stage renal disease Status: Chronic Assessment and Plan: Per Nephrology (8) Iron deficiency anemia: Qualifiers: Iron deficiency anemia type: chronic blood loss Qualified Code(s): D50.0 - Iron deficiency anemia secondary to blood loss (chronic) Code(s): D50.9 - Iron deficiency anemia, unspecified Status: Acute Assessment and Plan: the patient received 1 unit of packed red blood cells and is now going to get her 2nd unit. could be related to her chronic renal failure. Continue with ferric citrate if formulary. Continue with folic acid Appreciate GI input. EGD results noted. Waiting biopsy results. Continue PPI (9) Gastric mass: Code(s): K31.89 - Other diseases of stomach and duodenum Status: Acute Assessment and Plan: Biopsies pending. appreciate GI input. (10) Peptic ulcer disease: Code(s): K27.9 - Peptic ulcer, site unspecified, unspecified as acute or chronic, without hemorrhage or perforation Status: Acute Assessment and Plan: Continue PPI Plan Await biopsy results and plan accordingly. Subjective Date/time seen: 11/06/22 11:28 Interval history: Patient reports constipation Review of Systems Review of Systems: All systems reviewed & are unremarkable except as noted in HPI and below Exam Const: General: cooperative, comfortable, no acute distress, well developed, awake, Physically active, ill appearing, tired appearing, average body habitus, well nourished and thin Nutritional Appearance: average body habitus, well nourished and thin Orientation/consciousness: oriented to person and oriented to place Limitations: no limitations HENMT: Head: normal to inspection, No palpable skull fracture present, normocephalic and atraumatic Ears: hearing grossly normal bilaterally and external ears normal Face/Nose/Sinus: Normal external nose present and Normal nares present Eyes: General: appearance normal, both eyes and all related structures Alignment and Position: alignment normal Periorbital: periorbital findings normal Eyelids: eyelids normal Sclera: sclerae normal Pupils: Equal, round and reactive pupils present EOM: EOMs intact bilaterally Neck: Neck: normal visual inspection, full ROM, no lymphadenopathy, trachea midline and supple Carotids: normal carotid upstroke Chest: Chest palpation & inspection: normal inspection of the chest Resp: Effort & Inspection: normal respiratory effort Auscultation: clear to auscultation bilaterally Cardio: Palpation: normal PMI Rate: regular rate
--- NOTE | 2022-11-06 11:43 | PC.NURSE ---
Received return call from [facility]. Ethel (RN at [facility]) states that we have an RN here in the ICU that is trained to take care of the PD lines. She said she would call and have that nurse come take care of it.
[2022-11-06] MEDS: ONDANSETRON INJ 4 MG/2 ML VIAL IV PUSH (12:04)
--- NOTE | 2022-11-06 12:42 | P.PNNP_ITS ---
Progress Note: A&P Assessment and Plan (1) End stage renal disease: Code(s): N18.6 - End stage renal disease Status: Chronic Assessment and Plan: * HD tomorrow and outpatient schedule of T/T/S * follow electrolytes, volume status, and clearance * re-attempt peritoneal dialysis once abdomen heals (as an outpatient) (2) S/P appendectomy: Code(s): Z90.49 - Acquired absence of other specified parts of digestive tract Status: Acute Assessment and Plan: * s/p laparoscopic appendectomy and adhesiolysis * s/p revision of peritoneal dialysis catheter as well * postop care as outlined by Surgery (3) Hematemesis: Code(s): K92.0 - Hematemesis Status: Acute Assessment and Plan: * reportedly has been having this issue on/off for the last 6 months * GI following * s/p EGD with findings noted: * reflux esophagitis + ulcer * ulcerated gastric lesion/mass - pathology pending * PRBC transfusion per protocol * follow trend of H/H (4) Hypertension: Code(s): I10 - Essential (primary) hypertension Status: Acute Assessment and Plan: * reasonable control at this time * resumed on home medications * follow trend of hemodynamics (5) Paroxysmal A-fib: Code(s): I48.0 - Paroxysmal atrial fibrillation Status: Acute Assessment and Plan: * rate control strategy * anticoagulation on hold for now (6) Anemia: Code(s): D64.9 - Anemia, unspecified Status: Acute Assessment and Plan: * partly related to ESRD but worsened by #3 * GI following * follow trend of H/H * Epogen with dialysis Will continue to follow. Subjective Date/time seen: 11/06/22 12:42 Interval history: Follow-up for end stage renal disease on hemodialysis. Tolerated dialysis yesterday without any acute issues or problems; has been tolerating oral intake reasonably well; no other events overnight or earlier this morning. Exam Narrative: General: ill appearing female in NAD Heart: normal S1 and S2; no rub Lungs: clear to auscultation Abdomen: soft, nontender, nondistended, positive bowel sounds Extremities: no cyanosis or clubbing; no edema Skin: no nodules Objective Data Vital Signs Vital Signs: Vital Signs Temp Pulse Resp BP Pulse Ox O2 Del Method 11/06/22 08:00 Room Air 11/06/22 05:36 98 F 67 20 190/63 H 97 11/05/22 20:00 Room Air 11/05/22 19:55 97.7 F 62 17 148/52 H 99 11/05/22 17:26 97.9 F 65 18 167/70 H 95 11/05/22 17:22 66 173/68 H 11/05/22 17:00 61 158/69 H 11/05/22 16:40 60 166/72 H 11/05/22 16:20 65 158/68 H Intake/Output Intake/Output: Intake & Output 11/03/22 11/04/22 11/05/22 11/06/22 23:59 23:59 23:59 23:59 Intake Total 1290 1142 1300 560 Output Total 724 778 6365 Balance 1090 942 -300 560 Meds/Results Medications: Active Medications Generic Name Dose Route Start Last Admin Trade Name Freq PRN Reason Stop Dose Admin Acetaminophen 650 mg 11/04/22 10:17 Acetaminophen 325 Mg Tablet PO Q4H PRN Mild Pain (1-3) or Fe
--- NOTE | 2022-11-06 12:42 | PM.PNNEP ---
Progress Note: A&P Assessment and Plan (1) End stage renal disease: Code(s): N18.6 - End stage renal disease Status: Chronic Assessment and Plan: HD tomorrow and outpatient schedule of T/T/S follow electrolytes, volume status, and clearance re-attempt peritoneal dialysis once abdomen heals (as an outpatient) (2) S/P appendectomy: Code(s): Z90.49 - Acquired absence of other specified parts of digestive tract Status: Acute Assessment and Plan: s/p laparoscopic appendectomy and adhesiolysis s/p revision of peritoneal dialysis catheter as well postop care as outlined by Surgery (3) Hematemesis: Code(s): K92.0 - Hematemesis Status: Acute Assessment and Plan: reportedly has been having this issue on/off for the last 6 months GI following s/p EGD with findings noted: reflux esophagitis + ulcer ulcerated gastric lesion/mass - pathology pending PRBC transfusion per protocol follow trend of H/H (4) Hypertension: Code(s): I10 - Essential (primary) hypertension Status: Acute Assessment and Plan: reasonable control at this time resumed on home medications follow trend of hemodynamics (5) Paroxysmal A-fib: Code(s): I48.0 - Paroxysmal atrial fibrillation Status: Acute Assessment and Plan: rate control strategy anticoagulation on hold for now (6) Anemia: Code(s): D64.9 - Anemia, unspecified Status: Acute Assessment and Plan: partly related to ESRD but worsened by #3 GI following follow trend of H/H Epogen with dialysis Will continue to follow. Subjective Date/time seen: 11/06/22 12:42 Interval history: Follow-up for end stage renal disease on hemodialysis. Tolerated dialysis yesterday without any acute issues or problems; has been tolerating oral intake reasonably well; no other events overnight or earlier this morning. Exam Narrative: General: ill appearing female in NAD Heart: normal S1 and S2; no rub Lungs: clear to auscultation Abdomen: soft, nontender, nondistended, positive bowel sounds Extremities: no cyanosis or clubbing; no edema Skin: no nodules Objective Data Vital Signs Vital Signs: Vital Signs Temp Pulse Resp BP Pulse Ox O2 Del Method 11/06/22 08:00 Room Air 11/06/22 05:36 98 F 67 20 190/63 H 97 11/05/22 20:00 Room Air 11/05/22 19:55 97.7 F 62 17 148/52 H 99 11/05/22 17:26 97.9 F 65 18 167/70 H 95 11/05/22 17:22 66 173/68 H 11/05/22 17:00 61 158/69 H 11/05/22 16:40 60 166/72 H 11/05/22 16:20 65 158/68 H Intake/Output Intake/Output: Intake & Output 11/03/22 11/04/22 11/05/22 11/06/22 23:59 23:59 23:59 23:59 Intake Total 1290 1142 1300 560 Output Total 726 470 6621 Balance 1090 942 -300 560 Meds/Results Medications: Active Medications Generic Name Dose Route Start Last Admin Trade Name Freq PRN Reason Stop Dose Admin Acetaminophen 650 mg 11/04/22 10:17 Acetaminophen 325 Mg Tablet PO Q4H PRN Mild Pain (1-3) or Fever Hydrocodone Bitart/Acetaminophen 1 tab 11/01/22 03:29 11/06/22 04:05 Hydrocodone/Acetaminophen (*Crx) 10-325 Mg Tablet PO 1 tab QID PRN Administration Pain Rated 7-10 Allopurinol 100 mg 11/01/22 08:00 11/06/22 09:01 Allopurinol 100 Mg Tablet PO 100 mg DAILY@0800 PHYLICIA Administration Alprazolam 0.5 mg 11/01/22 03:29 11/05/22 13:53 Alprazolam (*Crx) 0.5 Mg Tablet PO 0.5 mg QID PRN Administration Anxiety Amantadine HCl 100 mg 11/01/22 09:00 11/06/22 09:00 Amantadine Hcl 100 Mg Capsule PO 100 mg DAILY PHYLICIA Administration Atorvastatin Calcium 40 mg 11/01/22 21:00 11/05/22 20:52 Atorvastatin 40 Mg Tablet PO 40 mg HS PHYLICIA Administration Clonidine HCl 0.1 mg 11/01/22 09:00 11/06/22 12:09 Clonidine Hcl 0.1 Mg Tablet PO 0.1 mg TID PHYLICIA Administr
--- NOTE | 2022-11-06 13:16 | PC.NURSE ---
Claudia from [facility] called and stated that unless Dr. Caceres puts an order in to touch the PD site they will not touch it. They contacted [employer] Teaching Assistant who said that this patient is scheduled for an outpatient nurse to come and flush the site. Higher Level Teaching Assistant does NOT want that PD flushed at this time since it it still new.
[2022-11-06 15:50] VITALS: BP 167/60; PULSE 61; RESP 18; TEMP 36.7; O2SAT 100
[2022-11-06] MEDS: MONTELUKAST SODIUM 10 MG TABLET PO (16:45)
[2022-11-06 20:00] VITALS: PULSE 65; RESP 18; O2SAT 98
[2022-11-06] MEDS: rOPINIRole HCL 0.5 MG TABLET 1.5 MG PO (20:54)
[2022-11-06] MEDS: ATORVASTATIN 40 MG TABLET PO (20:55)
[2022-11-06] MEDS: ALPRAZolam (*CRX) 0.5 MG TABLET PO (21:00)
[2022-11-06 21:05] VITALS: BP 165/57; PULSE 65; RESP 18; TEMP 36.9; O2SAT 98
[2022-11-07] VITALS (19 sets, daily range): BP systolic 147–193; BP diastolic 48–82; PULSE 61–72; RESP 14–18; TEMP 36–36.9; O2SAT 95–100
[2022-11-07] MEDS: hydrALAZINE HCL 50 MG TABLET 100 MG PO ×3 (05:08→19:25)
--- NOTE | 2022-11-07 06:43 | WPDGIPROGNO ---
Progress Note: A&P Assessment and Plan (1) End stage renal disease: Code(s): N18.6 - End stage renal disease Status: Chronic Assessment and Plan: Her peritoneal dialysis catheter not yet attempted to be used. She is fairly certain she is going to hemodialysis today (2) S/P appendectomy: Code(s): Z90.49 - Acquired absence of other specified parts of digestive tract Status: Acute Assessment and Plan: s/p laparoscopic appendectomy and adhesiolysis s/p revision of peritoneal dialysis catheter as well postop care as outlined by Surgery (3) Hematemesis: Code(s): K92.0 - Hematemesis Status: Acute Assessment and Plan: reportedly has been having this issue on/off for the last 6 months s/p EGD with findings noted: reflux esophagitis + ulcer ulcerated gastric lesion/mass PRBC transfusion per protocol follow trend of H/H no longer vomiting and tolerating her soft diet (4) Hypertension: Code(s): I10 - Essential (primary) hypertension Status: Acute Assessment and Plan: reasonable control at this time resumed on home medications follow trend of hemodynamics (5) Paroxysmal A-fib: Code(s): I48.0 - Paroxysmal atrial fibrillation Status: Acute Assessment and Plan: rate control strategy anticoagulation on hold for now (6) Anemia: Code(s): D64.9 - Anemia, unspecified Status: Acute Assessment and Plan: partly related to ESRD but worsened by #3 follow trend of H/H Epogen with dialysis Will continue to follow. (7) Peptic ulcer disease: Code(s): K27.9 - Peptic ulcer, site unspecified, unspecified as acute or chronic, without hemorrhage or perforation Status: Acute Assessment and Plan: EGD revealed multiple ulcers which were negative for H pylori. The mass effect in the pre-pyloric area was biopsied extensively and shows only normal mucosa. The plan then will be to treat her ulcers and have her return in a few weeks for repeat EGD and repeat biopsy if the area of inflammation and edema is still present. Plan I told her that we will let her know when we get results of the biopsies. She understands that she may need surgery. Dialysis is scheduled for today. Will advance to soft diet. Subjective Date/time seen: 11/07/22 06:43 tolerating a soft diet so far. I informed her that biopsies of the gastric antrum were benign. I discussed the his tology was , pathologist. Because of the extensive ulceration in the antrum this may be simply focal edema. The plan will be to repeat EGD and biopsy after couple weeks of therapy. Her main concern today is the fact she has not had a bowel movement for 8 days. She states that she is chronically constipated. She feels her stool come down to the anus but it will not passed without difficulty, often requiring her to remove it digitally. She had taken Linzess in the past which she says works for a while. She would like to have an enema now to get her bowels today. She also uses MiraLax liberally at Exam Const: General: comfortable, no acute distress, alert, awake, ill appearing and tired appearing Orientation/consciousness: patient oriented x3 HENMT: Face/Nose/Sinus: Normal nares present Mouth: Yes dry mucous membranes Eyes: Sclera: sclerae normal Neck: Neck: supple Resp: Effort & Inspection: normal respiratory effort Auscultation: clear to auscultation bilaterally Cardio: Rate: regular rate Rhythm: regular rhythm GI: Inspection: abdominal wall ecchymosis (No worse than preop), non-distended, incision (Small amount of blood from PD catheter exit site skin) and other (Trocar sites from appendectomy dry and healing) GI Palp: Yes abdominal tenderness ( Only at PD catheter site), Yes Soft to palpation and Yes No hepatosplenomegaly present Auscultation: normal bowel sounds Skin: General skin exam: normal color Ne
[2022-11-07 07:18] LABS: Basophils Absolute Auto 0.1 K/mm3 (0.0-0.1); Basophils Percent Auto 0.7 % (0.2-1.2); Eosinophils Absolute Auto 0.4 K/mm3 (0-0.3); Eosinophils Percent Auto 4.2 % (0-4.4); Hematocrit 30.3 % (37.0-47.0); Hemoglobin 9.4 g/dL (12.0-15.0); Immature Granulocyte Absolute 0.23 K/mm3 (0.00-0.031); Immature Granulocyte Percent A 2.2 % (0-0.5); Lymphocytes Absolute Auto 1.48 K/mm3 (0.9-3.2); Lymphocytes Percent Auto 14.4 % (18.3-44.2); Mean Corpuscular Hemoglobin 30.6 pg (26-34); Mean Corpuscular Volume 98.7 fl (80-100); Mean Platelet Volume 9.9 fl (7.4-10.4); Monocytes Percent Auto 9.5 % (2.6-8.5); Neutrophils Absolute Auto 7.1 K/mm3 (1.3-6.7); Platelet Count Result 170 k/mm3 (150-375); Red Blood Count 3.07 M/mm3 (4.2-5.4); Red Cell Distribution Width 17.2 % (11.5-14.5); White Blood Count 10.3 K/mm3 (4.5-10.0)
[2022-11-07 07:42] LABS: Alanine Aminotransferase 8 U/L (6-35); Albumin Level 3.1 g/dL (3.5-5.1); Alkaline Phosphatase 130 U/L (38-126); Anion Gap 5 mmol/L (8-16); Aspartate Amino Transferase 24 U/L (14-36); Bilirubin,Total 0.5 mg/dL (0.2-1.3); Blood Urea Nitrogen 37 mg/dL (7-17); Calcium 10.2 mg/dL (8.4-10.2); Carbon Dioxide 31 mmol/L (22-30); Chloride 99 mmol/L (98-107); Estimated CRCL calculation 10 ml/min; Estimated Glomerular Filt Rate 8; Glucose 176 mg/dL (65-110); Potassium 5.2 mmol/L (3.4-5.0); Sodium 135 mmol/L (137-145)
[2022-11-07] MEDS: BISACODYL 5 MG TABLET EC 10 MG PO (08:49)
[2022-11-07] MEDS: DOCUSATE SODIUM 100 MG CAPSULE 200 MG PO (08:49)
[2022-11-07] MEDS: PREGABALIN (*CRX) 50 MG CAPSULE PO ×2 (08:49→19:28)
[2022-11-07] MEDS: allopurinoL 100 MG TABLET PO (08:50)
[2022-11-07] MEDS: AMANTADINE HCL 100 MG CAPSULE PO (08:51)
[2022-11-07] MEDS: FOLIC ACID 0.4 MG TABLET PO (08:52)
[2022-11-07] MEDS: LOSARTAN POTASSIUM 100 MG TABLET PO (08:52)
[2022-11-07] MEDS: levETIRAcetam 250 MG TABLET 750 MG PO ×2 (08:52→20:40)
[2022-11-07] MEDS: FLUTICASONE PROPIONATE 0.05% NA SPR 16 GM BTL (*BKC) 1 SPRAY NASAL (08:52)
[2022-11-07] MEDS: lamoTRIgine 100 MG TABLET PO ×2 (08:52→20:40)
[2022-11-07] MEDS: polyethylene glycoL 3350 17 GM POWD.PACK PO ×2 (08:53→19:26)
[2022-11-07] MEDS: NIFEdipine 30 MG TAB.ER.24 PO (08:53)
[2022-11-07] MEDS: rOPINIRole HCL 0.5 MG TABLET PO ×2 (08:53→19:31)
[2022-11-07] MEDS: PANTOPRAZOLE 40 MG TABLET PO ×2 (08:55→20:41)
[2022-11-07] MEDS: cloNIDine HCL 0.2 MG TABLET PO ×3 (08:55→19:29)
[2022-11-07] MEDS: lamoTRIgine 50 MG TABLET PO ×2 (10:44→20:40)
--- NOTE | 2022-11-07 10:52 | PM.IMPN ---
Progress Note: A&P Assessment and Plan (1) S/P dialysis catheter insertion: Code(s): Z95.828 - Presence of other vascular implants and grafts; Z99.2 - Dependence on renal dialysis Status: Acute Assessment and Plan: The patient has a peritoneal dialysis catheter to her abdomen now. Dialysis per Nephrology (2) History of appendectomy: Code(s): Z90.49 - Acquired absence of other specified parts of digestive tract Status: Acute Assessment and Plan: the patient had an laparoscopic appendectomy, adhesiolysis and revision of peritoneal dialysis catheter. Management per surgery (3) Neuropathy: Code(s): G62.9 - Polyneuropathy, unspecified Status: Acute Assessment and Plan: continue with Lyrica (4) Anxiety and depression: Code(s): F41.9 - Anxiety disorder, unspecified; F32.A - Depression, unspecified Status: Acute Assessment and Plan: continue with Trintellix (5) Hypertension: Code(s): I10 - Essential (primary) hypertension Status: Acute Assessment and Plan: Blood pressure high. continue with losartan, clonidine, and hydralazine Increase losartan dose to 100 mg daily. Increase clonidine to 0.2 mg t.i.d. (6) Paroxysmal A-fib: Code(s): I48.0 - Paroxysmal atrial fibrillation Status: Acute Assessment and Plan: Please reinstate Eliquis when okay with surgery. (7) End stage renal disease: Code(s): N18.6 - End stage renal disease Status: Chronic Assessment and Plan: Per Nephrology (8) Iron deficiency anemia: Qualifiers: Iron deficiency anemia type: chronic blood loss Qualified Code(s): D50.0 - Iron deficiency anemia secondary to blood loss (chronic) Code(s): D50.9 - Iron deficiency anemia, unspecified Status: Acute Assessment and Plan: the patient received 1 unit of packed red blood cells and is now going to get her 2nd unit. could be related to her chronic renal failure. Continue with ferric citrate if formulary. Continue with folic acid Appreciate GI input. EGD results noted. Waiting biopsy results. Continue PPI (9) Gastric mass: Code(s): K31.89 - Other diseases of stomach and duodenum Status: Acute Assessment and Plan: Biopsies pending. appreciate GI input. (10) Peptic ulcer disease: Code(s): K27.9 - Peptic ulcer, site unspecified, unspecified as acute or chronic, without hemorrhage or perforation Status: Acute Assessment and Plan: Continue PPI Plan Await biopsy results and plan accordingly. Subjective Date/time seen: 11/07/22 10:52 Interval history: Stable. Has constipation Review of Systems Review of Systems: All systems reviewed & are unremarkable except as noted in HPI and below Exam Narrative: General: female in NAD Heart: normal S1 and S2; no rub Lungs: clear to auscultation Abdomen: soft, nontender, nondistended, positive bowel sounds Extremities: no cyanosis or clubbing; no edema Skin: no nodules Objective Data Vital Signs Vital Signs: Vital Signs - 24 hr 11/06/22 15:50 11/06/22 21:05 11/06/22 20:00 Temperature 98.1 F 98.4 F Pulse Rate 61 65 65 Respiratory Rate 18 18 18 Blood Pressure 167/60 H 165/57 H Pulse Oximetry 100 98 98 Oxygen Delivery Room Air 11/07/22 04:43 11/07/22 06:24 11/07/22 08:00 Temperature 97.3 F L Pulse Rate 65 66 Respiratory Rate 14 18 Blood Pressure 188/62 H 193/67 H Pulse Oximetry 99 98 Oxygen Delivery Room Air Intake/Output Intake/Output: Intake & Output 11/04/22 11/05/22 11/06/22 11/07/22 23:59 23:59 23:59 23:59 Intake Total 1142 / 1142 1300 / 1300 1040 / 1040 600 / 600 Output Total 200 / 200 1600 / 1600 Balance 942 / 942 -300 / -300 1040 / 1040 600 / 600 Meds/Results Medications: Active Medications Generic Name Dose Route Start Last Admin Trade Name Freq PRN Reason Stop Dose Admin
--- NOTE | 2022-11-07 11:52 | PC.NURSE ---
Per Dr. Pozo, ok to be discharged when other MD's are in agreement.
--- NOTE | 2022-11-07 15:15 | P.PNNP_ITS ---
Progress Note: A&P Assessment and Plan (1) End stage renal disease: Code(s): N18.6 - End stage renal disease Status: Chronic Assessment and Plan: * HD today and continue outpatient schedule of T/T/S * follow electrolytes, volume status, and clearance * re-attempt peritoneal dialysis once abdomen heals (as an outpatient) (2) S/P appendectomy: Code(s): Z90.49 - Acquired absence of other specified parts of digestive tract Status: Acute Assessment and Plan: * s/p laparoscopic appendectomy and adhesiolysis * s/p revision of peritoneal dialysis catheter as well * postop care as outlined by Surgery (3) Hematemesis: Code(s): K92.0 - Hematemesis Status: Acute Assessment and Plan: * reportedly has been having this issue on/off for the last 6 months * GI following * s/p EGD with findings noted: * reflux esophagitis + ulcer * ulcerated gastric lesion/mass - pathology pending * PRBC transfusion per protocol * follow trend of H/H (4) Hypertension: Code(s): I10 - Essential (primary) hypertension Status: Acute Assessment and Plan: * reasonable control at this time * resumed on home medications * follow trend of hemodynamics (5) Paroxysmal A-fib: Code(s): I48.0 - Paroxysmal atrial fibrillation Status: Acute Assessment and Plan: * rate control strategy * anticoagulation on hold for now (6) Anemia: Code(s): D64.9 - Anemia, unspecified Status: Acute Assessment and Plan: * partly related to ESRD but worsened by #3 * GI following * follow trend of H/H * Epogen with dialysis Okay for discharge from renal perspective if otherwise medically stable and acceptable by other physicians involved in her care. Will continue to follow. Subjective Date/time seen: 11/07/22 15:15 Interval history: Follow-up for end stage renal disease on hemodialysis. Tolerating dialysis treatment at the time of my visit (seen on HD at 3:00PM); no apparent distress voiced currently; no other events overnight or earlier this morning; only real complaint is that of constipation (and has not had a bowel movement as of yet). Exam Narrative: General: ill appearing female in NAD Heart: normal S1 and S2; no rub Lungs: clear to auscultation Abdomen: soft, nontender, nondistended, positive bowel sounds Extremities: no cyanosis or clubbing; no edema Skin: warm and dry Objective Data Vital Signs Vital Signs: Vital Signs Temp Pulse Resp BP Pulse Ox O2 Del Method 11/07/22 15:00 67 173/82 H 11/07/22 14:40 64 179/70 H 11/07/22 14:23 97.9 F 63 18 183/76 H 95 11/07/22 08:00 Room Air 11/07/22 06:24 66 18 193/67 H 98 11/07/22 04:43 97.3 F L 65 14 188/62 H 99 11/06/22 20:00 65 18 98 Room Air 11/06/22 21:05 98.4 F 65 18 165/57 H 98 Intake/Output Intake/Output: Intake & Output 11/04/22 11/05/22 11/06/22 11/07/22 23:59 23:59 23:59 23:59 Intake Total 1142 1300 1040 600 Output Total 200 1600 Balance 942 -300 1040 600 Meds/Results Medications: Active Medications Generic Name Dose Route Start Last A
--- NOTE | 2022-11-07 15:15 | PM.PNNEP ---
Progress Note: A&P Assessment and Plan (1) End stage renal disease: Code(s): N18.6 - End stage renal disease Status: Chronic Assessment and Plan: HD today and continue outpatient schedule of T/T/S follow electrolytes, volume status, and clearance re-attempt peritoneal dialysis once abdomen heals (as an outpatient) (2) S/P appendectomy: Code(s): Z90.49 - Acquired absence of other specified parts of digestive tract Status: Acute Assessment and Plan: s/p laparoscopic appendectomy and adhesiolysis s/p revision of peritoneal dialysis catheter as well postop care as outlined by Surgery (3) Hematemesis: Code(s): K92.0 - Hematemesis Status: Acute Assessment and Plan: reportedly has been having this issue on/off for the last 6 months GI following s/p EGD with findings noted: reflux esophagitis + ulcer ulcerated gastric lesion/mass - pathology pending PRBC transfusion per protocol follow trend of H/H (4) Hypertension: Code(s): I10 - Essential (primary) hypertension Status: Acute Assessment and Plan: reasonable control at this time resumed on home medications follow trend of hemodynamics (5) Paroxysmal A-fib: Code(s): I48.0 - Paroxysmal atrial fibrillation Status: Acute Assessment and Plan: rate control strategy anticoagulation on hold for now (6) Anemia: Code(s): D64.9 - Anemia, unspecified Status: Acute Assessment and Plan: partly related to ESRD but worsened by #3 GI following follow trend of H/H Epogen with dialysis Okay for discharge from renal perspective if otherwise medically stable and acceptable by other physicians involved in her care. Will continue to follow. Subjective Date/time seen: 11/07/22 15:15 Interval history: Follow-up for end stage renal disease on hemodialysis. Tolerating dialysis treatment at the time of my visit (seen on HD at 3:00PM); no apparent distress voiced currently; no other events overnight or earlier this morning; only real complaint is that of constipation (and has not had a bowel movement as of yet). Exam Narrative: General: ill appearing female in NAD Heart: normal S1 and S2; no rub Lungs: clear to auscultation Abdomen: soft, nontender, nondistended, positive bowel sounds Extremities: no cyanosis or clubbing; no edema Skin: warm and dry Objective Data Vital Signs Vital Signs: Vital Signs Temp Pulse Resp BP Pulse Ox O2 Del Method 11/07/22 15:00 67 173/82 H 11/07/22 14:40 64 179/70 H 11/07/22 14:23 97.9 F 63 18 183/76 H 95 11/07/22 08:00 Room Air 11/07/22 06:24 66 18 193/67 H 98 11/07/22 04:43 97.3 F L 65 14 188/62 H 99 11/06/22 20:00 65 18 98 Room Air 11/06/22 21:05 98.4 F 65 18 165/57 H 98 Intake/Output Intake/Output: Intake & Output 11/04/22 11/05/22 11/06/22 11/07/22 23:59 23:59 23:59 23:59 Intake Total 1142 1300 1040 600 Output Total 200 1600 Balance 942 -300 1040 600 Meds/Results Medications: Active Medications Generic Name Dose Route Start Last Admin Trade Name Freq PRN Reason Stop Dose Admin Acetaminophen 650 mg 11/04/22 10:17 Acetaminophen 325 Mg Tablet PO Q4H PRN Mild Pain (1-3) or Fever Hydrocodone Bitart/Acetaminophen 1 tab 11/01/22 03:29 11/06/22 21:00 Hydrocodone/Acetaminophen (*Crx) 10-325 Mg Tablet PO 1 tab QID PRN Administration Pain Rated 7-10 Allopurinol 100 mg 11/01/22 08:00 11/07/22 08:50 Allopurinol 100 Mg Tablet PO 100 mg DAILY@0800 PHYLICIA Administration Alprazolam 0.5 mg 11/01/22 03:29 11/06/22 21:00 Alprazolam (*Crx) 0.5 Mg Tablet PO 0.5 mg QID PRN Administration Anxiety Amantadine HCl 100 mg 11/01/22 09:00 11/07/22 08:51 Amantadine Hcl 100 Mg Capsule PO 100 mg DAILY PHYLICIA Administration Atorvastatin Calcium 40 mg 11/01
[2022-11-07] MEDS: EPOETIN ALFA-EPBX 10,000 UNITS/ML VIAL 10000 UNITS IV PUSH (16:14)
[2022-11-07] MEDS: MONTELUKAST SODIUM 10 MG TABLET PO (19:26)
[2022-11-07] MEDS: ATORVASTATIN 40 MG TABLET PO (20:40)
[2022-11-07] MEDS: rOPINIRole HCL 0.5 MG TABLET 1.5 MG PO (20:41)
[2022-11-08] MEDS: HYDROcodone/acetaminophen (*CRX) 10-325 MG TABLET 1 TAB PO (02:09)
[2022-11-08] MEDS: ALPRAZolam (*CRX) 0.5 MG TABLET PO (02:10)
[2022-11-08 05:16] VITALS: BP 154/64; PULSE 65; RESP 18; TEMP 36.6; O2SAT 98
[2022-11-08] MEDS: FUROSEMIDE 80 MG TABLET BY MOUTH (08:36)
[2022-11-08] MEDS: lamoTRIgine 50 MG TABLET PO (08:36)
[2022-11-08] MEDS: FLUTICASONE PROPIONATE 0.05% NA SPR 16 GM BTL (*BKC) 1 SPRAY NASAL (08:36)
[2022-11-08] MEDS: cloNIDine HCL 0.2 MG TABLET PO ×2 (08:36→12:14)
[2022-11-08] MEDS: lamoTRIgine 100 MG TABLET PO (08:36)
[2022-11-08] MEDS: FOLIC ACID 0.4 MG TABLET PO (08:36)
[2022-11-08] MEDS: AMANTADINE HCL 100 MG CAPSULE PO (08:37)
[2022-11-08] MEDS: levETIRAcetam 250 MG TABLET 750 MG PO (08:37)
[2022-11-08] MEDS: allopurinoL 100 MG TABLET PO (08:37)
[2022-11-08] MEDS: hydrALAZINE HCL 50 MG TABLET 100 MG PO ×2 (08:37→12:14)
[2022-11-08] MEDS: LOSARTAN POTASSIUM 100 MG TABLET PO (08:37)
[2022-11-08] MEDS: NIFEdipine 30 MG TAB.ER.24 PO (08:37)
[2022-11-08] MEDS: rOPINIRole HCL 0.5 MG TABLET PO (08:38)
[2022-11-08] MEDS: PANTOPRAZOLE 40 MG TABLET PO (08:38)
[2022-11-08] MEDS: PREGABALIN (*CRX) 50 MG CAPSULE PO (08:40)
--- NOTE | 2022-11-08 09:25 | PCNFU ---
Nutrition Follow-Up Complete: Severe protein calorie malnutrition related to chronic illness, loss of appetite, vomiting as evidenced by report of >100% lb weight loss, 37%/1 year Goal: Advance diet as medically able - Goal met Adequate PO intake at least 50% meals and supplements when diet is advanced - Progressing Pt current nutrition is Soft & bite sized, Ensure Enlive BID. Intakes 75%. Nutrition recommendation: Modify diet to renal because of high potassium labs. Pt declines low-potassium supplement Nepro. Will discontinue supplement as she refuses Nepro. Last recorded weight is 77.3 kg. Bowel Motility: +2 11/08/22 Labs Reviewed: Na 135, K+ 5.2, GFR 8, BUN 37, Cre 5.2, Glu 176 Skin: Surgical to abdomen Additional Notes: Pt understands need for low potassium renal diet but does not want Nepro. Appetite has improved. Has poor dentition and tells me she has lumps in her esophagus, a mass in her stomach, and 2 ulcers which have probably contributed to her vomiting and weight loss. Monitoring diet advancement, supplement tolerance, intakes, labs, weights Follow up in 5 days
--- NOTE | 2022-11-08 10:11 | PM.PNGS ---
Progress Note: A&P Assessment and Plan (1) S/P appendectomy: Code(s): Z90.49 - Acquired absence of other specified parts of digestive tract Status: Acute Assessment and Plan: Patient healing uneventfully from laparoscopic appendectomy. Appendix was dilated but was not the source of her right lower quadrant abdominal pain. Pathology on appendix was normal just dilated. I suspect her right lower quadrant pain was due to malpositioning of her peritoneal dialysis catheter. I did try to revise and reposition the dialysis catheter in the pelvic cul-de-sac where it would work well. She can be discharged from surgical standpoint. No surgical follow-up is necessary. She can also resume her Eliquis 5 mg b.i.d. today. (2) Hemorrhage from dialysis catheter: Code(s): T82.838A - Hemorrhage due to vascular prosthetic devices, implants and grafts, initial encounter Status: Acute Assessment and Plan: Skin site sutured to control bleeding on 11/03/2022. No further bleeding. Further management per Nephrology and Da Darling. (3) Gastric mass: Code(s): K31.89 - Other diseases of stomach and duodenum Status: Acute Assessment and Plan: Biopsies were benign. Per Dr. Messina note, he plans to re-biopsy in a couple of weeks and patient will go home on acid reducing medication. (4) ESRD (end stage renal disease) on dialysis: Code(s): N18.6 - End stage renal disease; Z99.2 - Dependence on renal dialysis Status: Chronic Assessment and Plan: Continue chronic dialysis and further management per Nephrology. Subjective Subjective Date/Time Seen: 11/08/22 10:11 Post Op day: 5 Patient reports: no new complaints, feels better, tolerating a regular diet and afebrile Interval history: No complaints regarding incisions from laparoscopic appendectomy. No complaints of pain in the right lower quadrant. Main complaint is constipation which has been chronic. Review of Systems Review of Systems: All systems reviewed & are unremarkable except as noted in HPI and below (HPI) Exam Const: General: comfortable and no acute distress Orientation/consciousness: patient oriented x3 GI: Inspection: non-distended and incision (Laparoscopic incisions healing well) GI Palp: Yes Soft to palpation, No Tenderness to palpation present (GI), No Guarding due to palpation present (GI) and No Rebound tenderness present Auscultation: normal bowel sounds Neuro: General: patient oriented x3 and no focal motor deficits Extrem: General: no calf tenderness and no edema Psych: Affect: normal affect Insight: Good insight present (Psych) Judgement: Good judgement present (Psych) Objective Data Vital Signs Vital Signs: Vital Signs - 24 hr 11/07/22 14:23 11/07/22 14:40 11/07/22 15:00 Temperature 36.6 C Pulse Rate 63 64 67 Respiratory Rate 18 Blood Pressure 183/76 H 179/70 H 173/82 H Pulse Oximetry 95 Oxygen Delivery 11/07/22 15:20 11/07/22 15:40 11/07/22 16:00 Temperature Pulse Rate 64 66 61 Respiratory Rate Blood Pressure 173/77 H 175/74 H 150/70 H Pulse Oximetry Oxygen Delivery 11/07/22 16:20 11/07/22 16:40 11/07/22 17:00 Temperature Pulse Rate 65 63 64 Respiratory Rate Blood Pressure 170/77 H 169/72 H 172/72 H Pulse Oximetry Oxygen Delivery 11/07/22 17:20 11/07/22 17:40 11/07/22 17:55 Temperature Pulse Rate 61 62 64 Respiratory Rate Blood Pressure 163/67 H 163/72 H 169/74 H Pulse Oximetry Oxygen Delivery 11/07/22 18:20 11/07/22 18:52 11/07/22 21:33 Temperature 36.6 C 36.9 C 36.8 C Pulse Rate 64 65 72 Respiratory Rate 18 18 18 Blood Pressure 158/70 H 168/52 H 147/48 H Pulse Oximetry 95 100 98 Oxygen Delivery 11/07/22 20:00 11/08/22 05:16 11/08/22 08:00 Temperature 36.6 C Pulse Rate 65 65 Respiratory Rate 18 18 Blood Pressure 154/64 H Pulse Oximetry 100 98 Oxygen Delivery Room Air Room Air Intake/
--- NOTE | 2022-11-08 10:44 | P.PNNP_ITS ---
Progress Note: A&P Assessment and Plan (1) End stage renal disease: Code(s): N18.6 - End stage renal disease Status: Chronic Assessment and Plan: * HD due tomorrow. * Volume status looks okay. * Remove fluid to dry weight. * re-attempt peritoneal dialysis once abdomen heals (as an outpatient) * Will do a dialysis tomorrow if she is still here. Okay for discharge from the kidney standpoint. (2) S/P appendectomy: Code(s): Z90.49 - Acquired absence of other specified parts of digestive tract Status: Acute Assessment and Plan: * s/p laparoscopic appendectomy and adhesiolysis * s/p revision of peritoneal dialysis catheter as well * postop care as outlined by Surgery * Eating well. * Eager for discharge. (3) Hematemesis: Code(s): K92.0 - Hematemesis Status: Acute Assessment and Plan: * reportedly has been having this issue on/off for the last 6 months * GI following * s/p EGD with findings noted: * reflux esophagitis + ulcer * ulcerated gastric lesion/mass - pathology pending * PRBC transfusion per protocol * follow trend of H/H (4) Hypertension: Code(s): I10 - Essential (primary) hypertension Status: Acute Assessment and Plan: * reasonable control at this time * resumed on home medications * follow trend of hemodynamics (5) Paroxysmal A-fib: Code(s): I48.0 - Paroxysmal atrial fibrillation Status: Acute Assessment and Plan: * rate control strategy * anticoagulation on hold for now (6) Anemia: Code(s): D64.9 - Anemia, unspecified Status: Acute Assessment and Plan: * partly related to ESRD but worsened by #3 * GI following * follow trend of H/H * Epogen with dialysis Okay for discharge from renal perspective. Subjective Date/time seen: 11/08/22 10:44 Interval history: Yasmin is feeling a little better. Still on some oxygen. Eating well. Drinking some fluid but not a lot. Exam Narrative: General: ill appearing female in NAD Heart: normal S1 and S2; no rub or gallop Lungs: clear to auscultation Abdomen: soft, nontender, nondistended, positive bowel sounds Extremities: no cyanosis or clubbing; no edema Skin: No rash Objective Data Vital Signs Vital Signs: Vital Signs - 24 hr 06/08/23 14:23 11/07/22 14:40 11/07/22 15:00 Temperature 97.9 F Pulse Rate 63 64 67 Respiratory Rate 18 Blood Pressure 183/76 H 179/70 H 173/82 H Pulse Oximetry 95 Oxygen Delivery 11/07/22 15:20 11/07/22 15:40 11/07/22 16:00 Temperature Pulse Rate 64 66 61 Respiratory Rate Blood Pressure 173/77 H 175/74 H 150/70 H Pulse Oximetry Oxygen Delivery 11/07/22 16:20 11/07/22 16:40 11/07/22 17:00 Temperature Pulse Rate 65 63 64 Respiratory Rate Blood Pressure 170/77 H 169/72 H 172/72 H Pulse Oximetry Oxygen Delivery 11/07/22 17:20 11/07/22 17:40 11/07/22 17:55 Temperature Pulse Rate 61 62 64 Respiratory Rate Blood Pressure 163/67 H 163/72 H 169/74 H Pulse Oximetry Oxygen Delivery
--- NOTE | 2022-11-08 10:44 | PM.PNNEP ---
Progress Note: A&P Assessment and Plan (1) End stage renal disease: Code(s): N18.6 - End stage renal disease Status: Chronic Assessment and Plan: HD due tomorrow. Volume status looks okay. Remove fluid to dry weight. re-attempt peritoneal dialysis once abdomen heals (as an outpatient) Will do a dialysis tomorrow if she is still here. Okay for discharge from the kidney standpoint. (2) S/P appendectomy: Code(s): Z90.49 - Acquired absence of other specified parts of digestive tract Status: Acute Assessment and Plan: s/p laparoscopic appendectomy and adhesiolysis s/p revision of peritoneal dialysis catheter as well postop care as outlined by Surgery Eating well. Eager for discharge. (3) Hematemesis: Code(s): K92.0 - Hematemesis Status: Acute Assessment and Plan: reportedly has been having this issue on/off for the last 6 months GI following s/p EGD with findings noted: reflux esophagitis + ulcer ulcerated gastric lesion/mass - pathology pending PRBC transfusion per protocol follow trend of H/H (4) Hypertension: Code(s): I10 - Essential (primary) hypertension Status: Acute Assessment and Plan: reasonable control at this time resumed on home medications follow trend of hemodynamics (5) Paroxysmal A-fib: Code(s): I48.0 - Paroxysmal atrial fibrillation Status: Acute Assessment and Plan: rate control strategy anticoagulation on hold for now (6) Anemia: Code(s): D64.9 - Anemia, unspecified Status: Acute Assessment and Plan: partly related to ESRD but worsened by #3 GI following follow trend of H/H Epogen with dialysis Okay for discharge from renal perspective. Subjective Date/time seen: 11/08/22 10:44 Interval history: Yasmin is feeling a little better. Still on some oxygen. Eating well. Drinking some fluid but not a lot. Exam Narrative: General: ill appearing female in NAD Heart: normal S1 and S2; no rub or gallop Lungs: clear to auscultation Abdomen: soft, nontender, nondistended, positive bowel sounds Extremities: no cyanosis or clubbing; no edema Skin: No rash Objective Data Vital Signs Vital Signs: Vital Signs - 24 hr 11/07/22 14:23 11/07/22 14:40 11/07/22 15:00 Temperature 97.9 F Pulse Rate 63 64 67 Respiratory Rate 18 Blood Pressure 183/76 H 179/70 H 173/82 H Pulse Oximetry 95 Oxygen Delivery 11/07/22 15:20 11/07/22 15:40 11/07/22 16:00 Temperature Pulse Rate 64 66 61 Respiratory Rate Blood Pressure 173/77 H 175/74 H 150/70 H Pulse Oximetry Oxygen Delivery 11/07/22 16:20 11/07/22 16:40 11/07/22 17:00 Temperature Pulse Rate 65 63 64 Respiratory Rate Blood Pressure 170/77 H 169/72 H 172/72 H Pulse Oximetry Oxygen Delivery 11/07/22 17:20 11/07/22 17:40 11/07/22 17:55 Temperature Pulse Rate 61 62 64 Respiratory Rate Blood Pressure 163/67 H 163/72 H 169/74 H Pulse Oximetry Oxygen Delivery 11/07/22 18:20 11/07/22 18:52 11/07/22 21:33 Temperature 97.9 F 98.4 F 98.3 F Pulse Rate 64 65 72 Respiratory Rate 18 18 18 Blood Pressure 158/70 H 168/52 H 147/48 H Pulse Oximetry 95 100 98 Oxygen Delivery 11/07/22 20:00 11/08/22 05:16 11/08/22 08:00 Temperature 97.8 F Pulse Rate 65 65 Respiratory Rate 18 18 Blood Pressure 154/64 H Pulse Oximetry 100 98 Oxygen Delivery Room Air Room Air Intake/Output Intake/Output: Intake & Output 11/05/22 11/06/22 11/07/22 11/08/22 23:59 23:59 23:59 23:59 Intake Total 1300 1040 1190 590 Output Total 1600 2000 Balance -300 1040 -810 590 Meds/Results Medications: Active Medications Generic Name Dose Route Start Last Admin Trade Name Freq PRN Reason Stop Dose Admin Acetaminophen 650 mg 11/04/22 10:17 Acetaminophen 325 Mg Tablet PO Q4H PRN M
--- NOTE | 2022-11-08 10:49 | PM.DS ---
DS: Admitting Diagnosis Discharge Date 11/08/2022 Admitting Diagnosis Right lower quadrant abdominal pain Hematemesis Mental status changes History recent repositioning peritoneal dialysis catheter at another facility End-stage renal disease on hemodialysis Acute on chronic anemia DS: Discharge Diagnosis Discharge Diagnosis (1) Acute on chronic anemia: Code(s): D64.9 - Anemia, unspecified Status: Acute Assessment and Plan: Patient vomiting coffee ground and was found on EGD on 11/01/2022 to have a single esophageal ulcer with reflux esophagitis. She also had several superficial ulcers in the antrum of the stomach. Additionally there was a an ulcerated pre-pyloric mass that appeared to be at least partially obstructing. Biopsies of this mass showed only mucosa. She was treated with Protonix twice a day and H&H remained low but was stable. She was transfused 2 units packed cells on admission. Dr. Messina plans to follow-up with another EGD in 2 weeks regarding the pre-pyloric mass (2) S/P dialysis catheter insertion: Code(s): Z95.828 - Presence of other vascular implants and grafts; Z99.2 - Dependence on renal dialysis Status: Acute Assessment and Plan: Patient had peritoneal dialysis catheter revision at [facility] 2 days prior to her admission to [facility]. The catheter seemed to be stuck in the right lower quadrant and to the anterior abdomen. It was repositioned into the midline pelvis at the same time as her laparoscopic appendectomy on 10/31/2022 (3) Peptic ulcer disease: Code(s): K27.9 - Peptic ulcer, site unspecified, unspecified as acute or chronic, without hemorrhage or perforation Status: Acute Assessment and Plan: Pre pyloric mass, biopsies negative. Esophagitis also. (4) Gastric mass: Code(s): K31.89 - Other diseases of stomach and duodenum Status: Acute Assessment and Plan: Biopsies negative, to have re-biopsy and a couple of weeks (5) ESRD (end stage renal disease) on dialysis: Code(s): N18.6 - End stage renal disease; Z99.2 - Dependence on renal dialysis Status: Chronic Assessment and Plan: Continues on hemodialysis (6) Hemorrhage from dialysis catheter: Code(s): T82.838A - Hemorrhage due to vascular prosthetic devices, implants and grafts, initial encounter Status: Acute Assessment and Plan: Patient had bleeding from her PD catheter site while on the commode on 11/03/2022. This seemed to be from the skin and was sutured to achieve hemostasis. No further bleeding (7) Constipation: Code(s): K59.00 - Constipation, unspecified Status: Chronic Assessment and Plan: Chronic constipation. Patient had an enema the day prior to discharge. She takes MiraLax liberally at home. She has tried Linzess in the past. It has had some success. She reports that she occasionally has to do digital disimpaction to have a bowel movement at home. Follow-up with Dr. Messina for this as well. (8) S/P appendectomy: Code(s): Z90.49 - Acquired absence of other specified parts of digestive tract Status: Chronic Assessment and Plan: Patient presented with mental status changes, anemia, hematemesis and severe right lower quadrant abdominal pain with guarding. CT scan showed a 12 mm dilated appendix with minimal periappendiceal inflammation. Her PD catheter appeared to be in the same area. Due to concerns for appendicitis and possibly appendiceal rupture, contaminating her PD catheter, she was taken to the operating room and laparoscopic appendectomy was performed on 10/31/2022. The PD catheter was repositioned so that it was in the pelvis and free from omental adhesions. Her appendix did not appear to be inflamed at surgery and pathology showed only a dilated appendix but no acute appendicitis. She recovered well from the laparoscopic appendectomy. DS: Summary Ho
--- NOTE | 2022-11-08 11:18 | PCPTNOTE ---
Attempted to see patient for PT, however patient declined due to just getting down with working with OT and wanted to rest.
--- NOTE | 2022-11-08 11:34 | PM.IMPN ---
Progress Note: A&P Assessment and Plan (1) S/P dialysis catheter insertion: Code(s): Z95.828 - Presence of other vascular implants and grafts; Z99.2 - Dependence on renal dialysis Status: Acute Assessment and Plan: The patient has a peritoneal dialysis catheter to her abdomen now. Dialysis per Nephrology (2) History of appendectomy: Code(s): Z90.49 - Acquired absence of other specified parts of digestive tract Status: Acute Assessment and Plan: the patient had an laparoscopic appendectomy, adhesiolysis and revision of peritoneal dialysis catheter. Management per surgery (3) Neuropathy: Code(s): G62.9 - Polyneuropathy, unspecified Status: Acute Assessment and Plan: continue with Lyrica (4) Anxiety and depression: Code(s): F41.9 - Anxiety disorder, unspecified; F32.A - Depression, unspecified Status: Acute Assessment and Plan: continue with Trintellix (5) Hypertension: Code(s): I10 - Essential (primary) hypertension Status: Acute Assessment and Plan: Blood pressure high. continue with losartan, clonidine, and hydralazine Increase losartan dose to 100 mg daily. Increase clonidine to 0.2 mg t.i.d. (6) Paroxysmal A-fib: Code(s): I48.0 - Paroxysmal atrial fibrillation Status: Acute Assessment and Plan: Please reinstate Eliquis when okay with surgery. (7) End stage renal disease: Code(s): N18.6 - End stage renal disease Status: Chronic Assessment and Plan: Per Nephrology (8) Iron deficiency anemia: Qualifiers: Iron deficiency anemia type: chronic blood loss Qualified Code(s): D50.0 - Iron deficiency anemia secondary to blood loss (chronic) Code(s): D50.9 - Iron deficiency anemia, unspecified Status: Acute Assessment and Plan: the patient received 1 unit of packed red blood cells and is now going to get her 2nd unit. could be related to her chronic renal failure. Continue with ferric citrate if formulary. Continue with folic acid Appreciate GI input. EGD results noted. Waiting biopsy results. Continue PPI (9) Gastric mass: Code(s): K31.89 - Other diseases of stomach and duodenum Status: Acute Assessment and Plan: Biopsies pending. appreciate GI input. (10) Peptic ulcer disease: Code(s): K27.9 - Peptic ulcer, site unspecified, unspecified as acute or chronic, without hemorrhage or perforation Status: Acute Assessment and Plan: Continue PPI Plan Await biopsy results and plan accordingly. Subjective Date/time seen: 11/08/22 11:34 Interval history: Stable Review of Systems Review of Systems: All systems reviewed & are unremarkable except as noted in HPI and below (HPI) Exam Narrative: General: ill appearing female in NAD Heart: normal S1 and S2; no rub or gallop Lungs: clear to auscultation Abdomen: soft, nontender, nondistended, positive bowel sounds Extremities: no cyanosis or clubbing; no edema Skin: No rash Objective Data Vital Signs Vital Signs: Vital Signs - 24 hr 11/07/22 14:23 11/07/22 14:40 11/07/22 15:00 Temperature 97.9 F Pulse Rate 63 64 67 Respiratory Rate 18 Blood Pressure 183/76 H 179/70 H 173/82 H Pulse Oximetry 95 Oxygen Delivery 11/07/22 15:20 11/07/22 15:40 11/07/22 16:00 Temperature Pulse Rate 64 66 61 Respiratory Rate Blood Pressure 173/77 H 175/74 H 150/70 H Pulse Oximetry Oxygen Delivery 11/07/22 16:20 11/07/22 16:40 11/07/22 17:00 Temperature Pulse Rate 65 63 64 Respiratory Rate Blood Pressure 170/77 H 169/72 H 172/72 H Pulse Oximetry Oxygen Delivery 11/07/22 17:20 11/07/22 17:40 11/07/22 17:55 Temperature Pulse Rate 61 62 64 Respiratory Rate Blood Pressure 163/67 H 163/72 H 169/74 H Pulse Oximetry Oxygen Delivery 11/07/22 18:20 11/07/22 18:52 11/07/22 21
[2022-11-08] MEDS: polyethylene glycoL 3350 17 GM POWD.PACK PO (12:15)
== END 2022-11-08 13:00 | disposition home or self-care (01) | DRG 341 ==
LOC: ANHED 15:52 → ANHSURGERY 16:23 → ANHIMU 19:03 → ANH3MED 11-04 11:26
PROVIDERS: Chiropractor; Internal Medicine Gastroenterology; Internal Medicine Nephrology; Nurse Practitioner; Admitting Provider Student in an Organized Health Care Education/Training Program; Emergency Provider Emergency Medicine; PCP Family Medicine; Visit Provider Surgery
PROC: 0DTJ4ZZ Resection of Appendix, Percutaneous Endoscopic Approach (ICD-10-PCS; CPT 44970; principal; 2022-10-31 16:00)
PROC: 0DJ08ZZ Inspection of Upper Intestinal Tract, Via Natural or Artificial Opening Endoscopic (ICD-10-PCS; CPT 43235; principal; 2022-11-01 14:30)
DX: K22.11 Ulcer of esophagus with bleeding (principal); E43 Unspecified severe protein-calorie malnutrition; N18.6 End stage renal disease; T82.838A Hemorrhage due to vascular prosthetic devices, implants and grafts, initial encounter; I12.0 Hypertensive chronic kidney disease with stage 5 chronic kidney disease or end stage renal disease; K21.01 Gastro-esophageal reflux disease with esophagitis, with bleeding; Z99.2 Dependence on renal dialysis; K59.00 Constipation, unspecified; R41.82 Altered mental status, unspecified; D50.0 Iron deficiency anemia secondary to blood loss (chronic); G62.9 Polyneuropathy, unspecified; F41.9 Anxiety disorder, unspecified; F32.A Depression, unspecified; I48.0 Paroxysmal atrial fibrillation; Z79.01 Long term (current) use of anticoagulants; Z90.49 Acquired absence of other specified parts of digestive tract; Z68.24 Body mass index [BMI] 24.0-24.9, adult
CPT/HCPCS: 36415; 36430; 70450; 74177; 80053; 80074; 80307; 81001; 82948; 83036; 83605; 83690; 83735; 84100; 85014; 85018; 85025; 85027; 85610; 85730; 86706; 86850; 86900; 86901; 86923; 87081; 87340; 88304; 88305; 88342; 93005; 96365; 96375; 97110; 97161; 97165; 97530; 97535; 99285; A9270; C9113; G0257; J0330; J0690; J1644; J2405; J2704; J3010; J7030; J7040; J7050; P9016; Q5105; Q9967

== ENCOUNTER 2022-11-26 12:40 | Inpatient (IN) | payer OTHER, SELFPAY ==
[2022-11-26] VITALS (8 sets, daily range): BP systolic 134–192; BP diastolic 57–63; PULSE 53–61; RESP 18–20; TEMP 36.2–36.6; O2SAT 96–100; BMI 22.8
--- NOTE | 2022-11-26 12:56 | ECG_ITS ---
Measurements Intervals [place] Rate: 52 P: 55 CO: 244 QRS: 28 QRSD: 114 T: 51 QT: 480 QTc: 447 Interpretive Statements SINUS BRADYCARDIA WITH FIRST DEGREE AV BLOCK MODERATE INTRAVENTRICULAR CONDUCTION DELAY [110+ ms QRS DURATION] NONSPECIFIC ST & T-WAVE ABNORMALITY COMPARED TO ECG 10/31/2022 18:24:10 SINUS BRADYCARDIA NOW PRESENT FIRST DEGREE AV BLOCK NOW PRESENT Electronically Signed On 11-26-2022 13:57:18 CDT by Haylee Vargas M.D.
[2022-11-26 13:12] LABS: Basophils Percent Auto 1.1 % (0.2-1.2); Eosinophils Absolute Auto 0.2 K/mm3 (0-0.3); Eosinophils Percent Auto 5.3 % (0-4.4); Hematocrit 23.9 % (37.0-47.0); Hemoglobin 7.5 g/dL (12.0-15.0); Immature Granulocyte Absolute 0.02 K/mm3 (0.00-0.031); Immature Granulocyte Percent A 0.5 % (0-0.5); Lymphocytes Absolute Auto 1.01 K/mm3 (0.9-3.2); Lymphocytes Percent Auto 26.6 % (18.3-44.2); Mean Corpuscular HGB Conc 31.4 g/dl (32-36); Mean Corpuscular Hemoglobin 30.4 pg (26-34); Mean Corpuscular Volume 96.8 fl (80-100); Mean Platelet Volume 9.9 fl (7.4-10.4); Monocytes Absolute Auto 0.5 K/mm3 (0.1-0.6); Monocytes Percent Auto 12.1 % (2.6-8.5); Neutrophils Absolute Auto 2.1 K/mm3 (1.3-6.7); Neutrophils Percent Auto 54.4 % (45.5-73.1); Platelet Count Result 134 k/mm3 (150-375); Red Blood Count 2.47 M/mm3 (4.2-5.4); Red Cell Distribution Width 14.1 % (11.5-14.5); White Blood Count 3.8 K/mm3 (4.5-10.0)
[2022-11-26 13:22] LABS: Alanine Aminotransferase 16 U/L (6-35); Albumin Level 3.4 g/dL (3.5-5.1); Alkaline Phosphatase 131 U/L (38-126); Anion Gap 3 mmol/L (8-16); Aspartate Amino Transferase 24 U/L (14-36); Bilirubin,Total 0.3 mg/dL (0.2-1.3); Blood Urea Nitrogen 25 mg/dL (7-17); Calcium 9.2 mg/dL (8.4-10.2); Carbon Dioxide 38 mmol/L (22-30); Chloride 95 mmol/L (98-107); Estimated Glomerular Filt Rate 16; Glucose 184 mg/dL (65-110); Potassium 3.9 mmol/L (3.4-5.0); Sodium 136 mmol/L (137-145)
--- NOTE | 2022-11-26 13:25 | PC.NURSE ---
Pt had large soft bowel movement that was black in color.
--- NOTE | 2022-11-26 14:56 | ED.GENADULT ---
HPI - General Adult General Chief complaint: Weakness Stated complaint: weakness/dialysis patient Time Seen by Provider: 11/26/22 13:57 History of Present Illness HPI narrative: 67-year-old female with history of dialysis. Patient had been on peritoneal dialysis and was recently switched to hemodialysis. Patient does take Eliquis. Patient did have recent blood transfusions here at [facility] and had a recent admission at [facility] where she also required blood transfusion. Patient had a scope at [facility] that showed that she had ulcers. Patient was rescoped at [facility] and per the patient the scope was negative. Related Data Home Medications Medication Instructions Recorded Confirmed allopurinol 100 mg tablet 100 mg PO DAILY 11/01/22 11/26/22 alprazolam 0.5 mg tablet 0.5 mg PO QID PRN Anxiety 11/01/22 11/26/22 amantadine HCl 100 mg capsule 100 mg PO DAILY 11/01/22 11/26/22 apixaban 5 mg tablet (Eliquis) 5 mg PO BID 11/01/22 11/26/22 atorvastatin 40 mg tablet 40 mg PO HS 11/01/22 11/26/22 clonidine HCl 0.1 mg tablet 0.1 mg PO TID 11/01/22 11/26/22 docusate sodium 250 mg capsule 250 mg PO DAILY 11/01/22 11/26/22 ferric citrate 210 mg iron tablet 2 tablet PO BIDWM 11/01/22 11/26/22 (Auryxia) ferric citrate 210 mg iron tablet 3 tablet PO TIDWM 11/01/22 11/26/22 (Auryxia) fluticasone propionate 50 1 spray intranasal DAILY 11/01/22 11/26/22 mcg/actuation nasal spray,suspension folic acid 400 mcg tablet 0.4 mg PO DAILY 11/01/22 11/26/22 furosemide 80 mg tablet See Rx Instructions .Route .COMPLEX 11/01/22 11/26/22 gentamicin 0.1 % topical cream 1 applic topical DAILY 11/01/22 11/26/22 hydralazine 100 mg tablet 100 mg PO TID 11/01/22 11/26/22 hydrocodone 10 mg-acetaminophen 1 tablet PO Q6H PRN Pain (Scale 11/01/22 11/26/22 325 mg tablet Score 7-10) lamotrigine 150 mg tablet 150 mg PO Q12H 11/01/22 11/26/22 levetiracetam 750 mg tablet 750 mg PO BID 11/01/22 11/26/22 losartan 50 mg tablet 50 mg PO DAILY 11/01/22 11/26/22 montelukast 10 mg tablet 10 mg PO 1700 11/01/22 11/26/22 nifedipine 30 mg tablet,extended 30 mg PO DAILY 11/01/22 11/26/22 release 24 hr pregabalin 50 mg capsule 50 mg PO BID 11/01/22 11/26/22 ropinirole 0.5 mg tablet 0.5 mg PO BID 11/01/22 11/26/22 ropinirole 0.5 mg tablet 1.5 mg PO HS 11/01/22 11/26/22 tizanidine 4 mg tablet 4 mg PO BID PRN Muscle Spasm 11/01/22 11/26/22 vortioxetine 10 mg tablet 10 mg PO DAILY 11/01/22 11/26/22 (Trintellix) Allergies Allergy/AdvReac Type Severity Reaction Status Date / Time NSAIDS (Non-Steroidal Allergy Other Verified 11/26/22 12:53 Anti-Inflamma pickles AdvReac Swelling Uncoded 11/26/22 18:14 of Lip/Tongue/Throat Review of Systems Review of Systems: All systems reviewed & are unremarkable except as noted in HPI and below PMFSH Past Medical History Medical History (Updated 11/26/22 @ 22:31 by Vinicius Casarez MD) Altered mental status Anxiety and depression Breast cancer Constipation End stage renal disease On hemodialysis with peritoneal dialysis catheter in place Hypertension Iron deficiency anemia Neuropathy Paroxysmal A-fib Tardive dyskinesia Surgical History Surgical History (Updated 11/26/22 @ 20:46 by Narda Amaya DO) H/O cardiac radiofrequency ablation H/O lumpectomy Hx of cholecystectomy Peritoneal dialysis catheter in place Revised 10/31/[address] Pozo date of original placement and facility was placed unknown S/P appendectomy (10/31/22) Dilated appendix, extensive adhesion lysis of adhesions around peritoneal dialysis catheter S/P dialysis catheter insertion Hemodialysis catheter Family History Family History Daughter Precancerous changes of the cervix Pancreatitis Daughter Colon cancer Precancerous changes of the cervix Unknown Diabetes mellitus Father Heart attack Sibling Pancreatitis Adry's disease Social History Social History (
[2022-11-26] MEDS: PANTOPRAZOLE SODIUM IV 40 MG VIAL 80 MG IV PUSH (15:23)
--- NOTE | 2022-11-26 18:00 | ADMGEN ---
This patient, Yasmin Colbert, was admitted to IMU Room 210-01. Patient/family oriented to hospital policies and general routines including ID bracelet, bed and alarms, visiting hours, pain management, procedures, bathroom and other care routines, personal items, smoking policy, room service/diet, and visiting hours. Information on how to activate the Rapid Response Team has been discussed. Patient/Family are encouraged to report perceived risks to care and to ask questions if they do not understand what they are told or what they should do.
--- NOTE | 2022-11-26 20:36 | PM.IMHP ---
H&P: HPI History of Present Illness Date/Time: 11/26/22 20:36 Chief Complaint: Generalized weakness Narrative: Source of information: The patient who is a fair to poor historian and her who was at bedside. Additionally I reviewed patient's past medical records. 67-year-old female with a past medical history of bipolar disorder with tardive dyskinesia, end-stage renal disease on hemodialysis, hypertension, neuropathy, gastroparesis, GERD, obstructive sleep apnea and recent GI bleed who presented to the ER from home via private due to weakness and physical decline. The patient was admitted to the hospital here in - due to suspected appendicitis. Patient underwent appendectomy and adhesion lysis. She had a peritoneal dialysis catheter placed in September and had noticed that her peritoneal dialysis catheter was not returning all the fluid that they would instill into the device during the training sessions. So while she is undergoing appendectomy there was a he is in lysis performed around the peritoneal catheter site in the ankle the peritoneal catheter was changed. She reports that she was discharged home after that hospital stay and was continuing to have copious amounts of leakage of fluid from around her peritoneal dialysis catheter. After about 3 days of the symptoms and some associated physical decline with that she went to [facility] where the dialysis catheter was placed. The catheter was subsequently removed. During her hospitalization here in October the patient was anemic on admission and required transfusion of 3 units of blood. She had an EGD that demonstrated single shallow superficial ulcer of the esophagus, reflux esophagitis grade C, few superficial ulcers of the antrum, and protruding ulcerated mass seen in the pre pyloric region that was partially obstructing. Biopsies from the mass were benign. She has not been having any significant abdominal pain. She has been having difficulty eating significant foods due to the sensation of fullness but again has the mast as discussed. She has not been having any vomiting. She denies any chest pain or significant changes in shortness of breath. She does still make urine to 3 times a day and denies any dysuria. She has not been having any diarrhea. However today she did have 3 large black stools that were Hemoccult positive in the ER. She is chronically chilled. She denies having any fevers. She denies any chest pain. From what I can ascertain from the patient and her at bedside patient does have some baseline confusion it sounds like the patient may be developing some early signs of dementia. She has not been evaluated for her memory loss. The patient does still have hemodialysis access in the right upper arm. Her hemodialysis was on the . Review of Systems Review of Systems: 12 systems were reviewed with pertinent positives and negatives per HPI. Except as documented in the HPI, all other systems were reviewed and are negative. [facility] Past Medical History Medical History (Updated 11/27/22 @ 01:44 by Narda Amaya DO) Anxiety and depression Bipolar depression Breast cancer Constipation Coronary artery disease End stage renal disease On hemodialysis with peritoneal dialysis catheter in place Esophageal ulcer Gastric mass Benign hyperplastic foveolar mucosa partially obstructing pylorus Gastric ulcer Gastroparesis Hypertension Iron deficiency anemia Neuropathy Obstructive sleep apnea Patient has a history of severe obstructive sleep apnea diagnosed in 2005 with recommended CPAP of 18 Paroxysmal A-fib Tardive dyskinesia Surgical History Surgical History (Updated 11/27/22 @ 01:38 by Narda Amaya DO) 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
[2022-11-26] MEDS: cloNIDine HCL 0.1 MG TABLET PO (21:29)
[2022-11-26] MEDS: ATORVASTATIN 40 MG TABLET PO (21:29)
[2022-11-26] MEDS: rOPINIRole HCL 0.5 MG TABLET 1.5 MG PO (21:29)
[2022-11-26] MEDS: hydrALAZINE HCL 50 MG TABLET 100 MG PO (21:29)
[2022-11-26] MEDS: levETIRAcetam 250 MG TABLET 750 MG PO (21:29)
[2022-11-26] MEDS: PANTOPRAZOLE 40 MG TABLET PO (21:29)
[2022-11-26] MEDS: lamoTRIgine 50 MG TABLET 150 MG PO (23:47)
[2022-11-26] MEDS: HYDROcodone/acetaminophen (*CRX) 5-325 MG TABLET 1 TAB PO (23:48)
[2022-11-27] VITALS (24 sets, daily range): BP systolic 161–198; BP diastolic 45–89; PULSE 50–71; RESP 16–21; TEMP 36.1–36.7; O2SAT 94–100; BMI 22.8
[2022-11-27 04:52] LABS: Basophils Absolute Auto 0.1 K/mm3 (0.0-0.1); Basophils Percent Auto 1.3 % (0.2-1.2); Eosinophils Absolute Auto 0.2 K/mm3 (0-0.3); Immature Granulocyte Absolute 0.01 K/mm3 (0.00-0.031); Immature Granulocyte Percent A 0.3 % (0-0.5); Lymphocytes Absolute Auto 1.35 K/mm3 (0.9-3.2); Lymphocytes Percent Auto 35.8 % (18.3-44.2); Mean Corpuscular HGB Conc 31.7 g/dl (32-36); Mean Corpuscular Hemoglobin 31.1 pg (26-34); Mean Corpuscular Volume 98.1 fl (80-100); Mean Platelet Volume 10.1 fl (7.4-10.4); Monocytes Absolute Auto 0.5 K/mm3 (0.1-0.6); Monocytes Percent Auto 12.2 % (2.6-8.5); Neutrophils Absolute Auto 1.7 K/mm3 (1.3-6.7); Neutrophils Percent Auto 45.4 % (45.5-73.1); Platelet Count Result 120 k/mm3 (150-375); Red Blood Count 2.12 M/mm3 (4.2-5.4); Red Cell Distribution Width 14.1 % (11.5-14.5); White Blood Count 3.8 K/mm3 (4.5-10.0)
[2022-11-27 05:01] LABS: Hemoglobin 6.6 g/dL (12.0-15.0)
[2022-11-27] MEDS: cloNIDine HCL 0.1 MG TABLET PO ×3 (05:01→21:17)
[2022-11-27] MEDS: hydrALAZINE HCL 50 MG TABLET 100 MG PO ×3 (05:01→21:16)
[2022-11-27 05:02] LABS: Hematocrit 20.8 % (37.0-47.0)
[2022-11-27 05:07] LABS: Alanine Aminotransferase 13 U/L (6-35); Albumin Level 2.8 g/dL (3.5-5.1); Alkaline Phosphatase 108 U/L (38-126); Anion Gap 3 mmol/L (8-16); Aspartate Amino Transferase 18 U/L (14-36); Bilirubin,Total 0.3 mg/dL (0.2-1.3); Blood Urea Nitrogen 31 mg/dL (7-17); Calcium 9.4 mg/dL (8.4-10.2); Carbon Dioxide 37 mmol/L (22-30); Chloride 95 mmol/L (98-107); Estimated CRCL calculation 13 ml/min; Estimated Glomerular Filt Rate 12; Glucose 123 mg/dL (65-110); Magnesium 2.6 mg/dL (1.6-2.3); Phosphorus 4.7 mg/dL (2.5-4.5); Potassium 3.9 mmol/L (3.4-5.0); Sodium 135 mmol/L (137-145)
[2022-11-27] MEDS: HYDROcodone/acetaminophen (*CRX) 5-325 MG TABLET 1 TAB PO ×3 (05:22→23:04)
[2022-11-27] MEDS: SODIUM CHLORIDE 0.9% IV 250 ML 30 ML IV CONT (09:05)
[2022-11-27] MEDS: TUBING, BLOOD PLUM PUMP TUBING 1 EACH XX (09:07)
[2022-11-27] MEDS: lamoTRIgine 50 MG TABLET 150 MG PO ×2 (09:08→21:17)
[2022-11-27] MEDS: PANTOPRAZOLE SODIUM IV 40 MG VIAL IV PUSH ×2 (09:09→17:18)
[2022-11-27] MEDS: levETIRAcetam 250 MG TABLET 750 MG PO ×2 (09:10→21:17)
[2022-11-27] MEDS: allopurinoL 100 MG TABLET PO (09:10)
[2022-11-27] MEDS: DOCUSATE SODIUM 100 MG CAPSULE 200 MG PO (09:10)
[2022-11-27] MEDS: LOSARTAN POTASSIUM 50 MG TABLET PO (09:11)
[2022-11-27] MEDS: NIFEdipine 30 MG TAB.ER.24 PO (09:11)
[2022-11-27] MEDS: FOLIC ACID 0.4 MG TABLET PO (09:11)
[2022-11-27] MEDS: rOPINIRole HCL 0.5 MG TABLET PO ×2 (09:12→17:16)
[2022-11-27] MEDS: FLUTICASONE PROPIONATE 0.05% NA SPR 16 GM BTL (*BKC) 1 SPRAY NASAL (09:13)
[2022-11-27] MEDS: GENTAMICIN SULFATE 0.1% CR 15 GM TUBE 1 APPLIC TOPICAL (09:13)
[2022-11-27] MEDS: PREGABALIN (*CRX) 50 MG CAPSULE PO ×2 (09:32→18:12)
[2022-11-27] MEDS: AMANTADINE HCL 100 MG CAPSULE PO (09:33)
--- NOTE | 2022-11-27 12:23 | WPDGICN ---
Assessment and Plan Assessment and plan (1) Symptomatic anemia: Code(s): D64.9 - Anemia, unspecified Status: Acute Assessment and Plan: She has had black stools for the last couple of days and she is again anemic with a hemoglobin of 6.6. She does not believe that she has been taking Eliquis but she cannot be certain because there was her who ranges her pills. She had EGD and colonoscopy at another hospital a couple weeks ago and those studies were said to be unremarkable. (2) Gastric mass: Code(s): K31.89 - Other diseases of stomach and duodenum Status: Acute Assessment and Plan: Biopsies done a few weeks ago were negative. The endoscopist at [facility] told her that they saw nothing abnormal at all. (3) Gastric ulcer: Qualifiers: Gastric ulcer chronicity: unspecified ulcer chronicity Gastric ulcer complication status: unspecified whether hemorrhage or perforation present Qualified Code(s): K25.9 - Gastric ulcer, unspecified as acute or chronic, without hemorrhage or perforation Code(s): K25.9 - Gastric ulcer, unspecified as acute or chronic, without hemorrhage or perforation Status: Acute Assessment and Plan: She has been on pantoprazole for the past few weeks. Denies epigastric pain (4) ESRD (end stage renal disease) on dialysis: Code(s): N18.6 - End stage renal disease; Z99.2 - Dependence on renal dialysis Status: Chronic Assessment and Plan: on dialysis now 3 times a week. Plan Will perform EGD today to investigate recurrent melena and also assess the healing of her previously found ulcers. GI Consult Note Consult date/time: 11/27/22 12:23 HPI: Yasmin Colbert is a 67 year old female was admitted with weakness and having had black tarry stools for the last couple of days. She has no abdominal pain. She was found at admission to have a hemoglobin of 7.5 verses 9 a few weeks ago when she was discharged. Now it is 6.6 today. Three weeks ago when she was hospitalized here she had an EGD revealing multiple ulcers. Also on CT scan it appeared that she had a gastric mass in the pylorus. Endoscopy revealed several ulcers in the antrum and ulceration on a swollen area near the pylorus. Biopsies of that fortunately were benign. Just about 8 days later she was sent to [facility] when she was having drainage that was purulent from her peritoneal dialysis catheter site and she was found to be anemic again. She states that they gave her 4 units of blood at that hospitalization. She says that the also performed an EGD and colonoscopy in told her that there were no ulcers and nothing abnormal to explain her bleeding. She states that she has been off Eliquis since her hospitalization earlier this month but is still listed on her admission notes as an active medication. She was hospitalized here 4 weeks ago when she had presented with hematemesis and complications due to infected peritoneal dialysis catheter. She required 3 units of blood at that time. EGD did reveal several gastric antral ulcerations. She also had what appeared to be a fullness in the pre-pyloric area on CT scan. On endoscopy it appeared that it was all inflammatory. Biopsies were taken which were benign. When she was in the other hospital a week later she had EGD and colonoscopy she was told that her stomach was entirely normal without ulcers or any other abnormalities when I saw her last month she had been hospialized because of persistent vomiting for 6 or more months bringing up often look like coffee-ground material. Her hemoglobin was 6.5 at that time. An EGD was performed that revealed multiple superficial irregularly shaped ulcers in the gastric antrum as well as a polypoid mass in the antrum. Biopsies of that polypoid area were benign. She was started on pantoprazole. She left with a hemoglobin of around 9 but as mentioned above is dropping aga
[2022-11-27 13:00] LABS: Hematocrit 25.4 % (37.0-47.0); Hemoglobin 8.2 g/dL (12.0-15.0)
[2022-11-27 13:23] LABS: Glucose Point of Care 116 mg/dl (65-105)
[2022-11-27] MEDS: SODIUM CHLORIDE 0.9% IV 500 ML 10 ML IV CONT (13:25)
--- NOTE | 2022-11-27 13:49 | WPDANESEPPF ---
Anes - Initial Pre Proc Eval Procedure: Operation Date: 11/27/22 15:00 Proposed Procedures p Esophagogastroduodenoscopy - Saw Messina MD Date/Time: 11/27/22 13:49 Surgeon: Ramirez Quispe MD Pre Op Diagnosis: Dialysis/GI Bleed/Anemia Patient Data Age: 67 Gender: F Height: 1.73 m Weight: 68.1 kg Last Vital Signs Temp 97.5 F L 11/27/22 13:21 Pulse 53 L 11/27/22 13:21 Resp 18 11/27/22 13:21 BP 183/63 H 11/27/22 13:21 Pulse Ox 99 11/27/22 13:21 O2 Del Method Room Air 11/27/22 13:21 FiO2 21 11/27/22 03:03 Allergies Allergy/AdvReac Type Severity Reaction Status Date / Time adhesive tape Allergy Rash Verified 11/27/22 13:16 NSAIDS (Non-Steroidal Allergy Other Verified 11/26/22 12:53 Anti-Inflamma pickles AdvReac Swelling Uncoded 11/26/22 18:14 of Lip/Tongue/Throat Home Medications Medication Instructions Recorded Confirmed Type allopurinol 100 mg tablet 100 mg PO DAILY 11/01/22 11/26/22 History alprazolam 0.5 mg tablet 0.5 mg PO QID PRN Anxiety 11/01/22 11/26/22 History amantadine HCl 100 mg capsule 100 mg PO DAILY 11/01/22 11/26/22 History apixaban 5 mg tablet (Eliquis) 5 mg PO BID 11/01/22 11/26/22 History atorvastatin 40 mg tablet 40 mg PO HS 11/01/22 11/26/22 History clonidine HCl 0.1 mg tablet 0.1 mg PO TID 11/01/22 11/26/22 History docusate sodium 250 mg capsule 250 mg PO DAILY 11/01/22 11/26/22 History ferric citrate 210 mg iron tablet 2 tablet PO BIDWM 11/01/22 11/26/22 History (Auryxia) ferric citrate 210 mg iron tablet 3 tablet PO TIDWM 11/01/22 11/26/22 History (Auryxia) fluticasone propionate 50 1 spray intranasal DAILY 11/01/22 11/26/22 History mcg/actuation nasal spray,suspension folic acid 400 mcg tablet 0.4 mg PO DAILY 11/01/22 11/26/22 History furosemide 80 mg tablet See Rx Instructions .Route .COMPLEX 11/01/22 11/26/22 History gentamicin 0.1 % topical cream 1 applic topical DAILY 11/01/22 11/26/22 History hydralazine 100 mg tablet 100 mg PO TID 11/01/22 11/26/22 History hydrocodone 10 mg-acetaminophen 1 tablet PO Q6H PRN Pain (Scale 11/01/22 11/26/22 History 325 mg tablet Score 7-10) lamotrigine 150 mg tablet 150 mg PO Q12H 11/01/22 11/26/22 History levetiracetam 750 mg tablet 750 mg PO BID 11/01/22 11/26/22 History losartan 50 mg tablet 50 mg PO DAILY 11/01/22 11/26/22 History montelukast 10 mg tablet 10 mg PO 1700 11/01/22 11/26/22 History nifedipine 30 mg tablet,extended 30 mg PO DAILY 11/01/22 11/26/22 History release 24 hr pregabalin 50 mg capsule 50 mg PO BID 11/01/22 11/26/22 History ropinirole 0.5 mg tablet 0.5 mg PO BID 11/01/22 11/26/22 History ropinirole 0.5 mg tablet 1.5 mg PO HS 11/01/22 11/26/22 History tizanidine 4 mg tablet 4 mg PO BID PRN Muscle Spasm 11/01/22 11/26/22 History vortioxetine 10 mg tablet 10 mg PO DAILY 11/01/22 11/26/22 History (Trintellix) pantoprazole 40 mg tablet,delayed 40 mg PO Q12HR #60 tabs 11/08/22 11/26/22 Rx release polyethylene glycol 3350 17 gram 17 g PO BID #60 ea 11/08/22 11/26/22 Rx oral powder packet (Miralax) Laboratory Tests 11/27/22 11/27/22 11/27/22 04:38 07:12 12:54 WBC 3.8 L K/mm3 (4.5-10.0) RBC 2.12 L M/mm3 (4.2-5.4) Hgb 6.6 L* g/dL 8.2 L g/dL (12.0-15.0) (12.0-15.0) Hct 20.8 L* % 25.4 L % (37.0-47.0) (37.0-47.0) MCV 98.1 fl (80-100) MCH 31.1 pg (26-34) MCHC 31.7 L g/dl (32-36) RDW 14.1 % (11.5-14.5) Plt Count 120 L k/mm3 (150-375) MPV 10.1 fl (7.4-10.4) Immature Gran % (Auto) 0.3 % (0-0.5) Neut % (Auto) 45.4 L % (45.5-73.1) Lymph % (Auto) 35.8 % (18.3-44.2) [place] % (Auto) 12.2 H % (2.6-8.5) Eos % (Auto) 5.0 H % (0-4.4) Baso % (Auto) 1.3 H % (0.2-1.2) Lymph # (Auto) 1.35 K/mm3 (0.9-3.2) [place] # (Auto) 0.5 K/mm3 (0.1-0.6) Eos # (Auto) 0.2 K
[2022-11-27] MEDS: SIMETHICONE ORAL SUSPENSION 20 MG/0.3 ML 30 ML BOTTLE 0.6 ML PO (14:04)
--- NOTE | 2022-11-27 15:00 | PM.CNNEP ---
Assessment and Plan Assessment and plan (1) End stage renal disease: Code(s): N18.6 - End stage renal disease Status: Chronic Assessment and Plan: HD tomorrow resume outpatient schedule of T/T/S follow electrolytes, volume status, and clearance (2) Anemia: Code(s): D64.9 - Anemia, unspecified Status: Acute Assessment and Plan: partly related to ESRD however, cannot discount GI loss low H/H on admission guaiac positive stools results of endoscopy here on last admission recent EGD/colonoscopy at [facility] a few weks -- unremarkable findings per patient) Gastroenterology following s/p EGD today - no active source of bleeding noted follow trend of H/H PRBC transfusion per protocol Epogen with dialysis (3) Hypertension: Qualifiers: Hypertension type: secondary to other renal disorders Qualified Code(s): I15.1 - Hypertension secondary to other renal disorders; N28.89 - Other specified disorders of kidney and ureter Code(s): I10 - Essential (primary) hypertension Status: Acute Assessment and Plan: quite elevated resumed on home medications follow trend of hemodynamics (4) Generalized weakness: Code(s): R53.1 - Weakness Status: Acute Assessment and Plan: suspect due to anemia and recent repeat hospital hospitalization this has likely led to generalized deconditioning PT/OT as tolerated I will continue follow the patient with you while she remains hospitalized and make further recommendations during hospital course. Thank you for allowing me to participate in care with patient. History of Present Illness Reason for Consult Consult date: 11/27/22 Reason for consult: end stage renal disease Chief Complaint Chief complaint: Dialysis/GI Bleed/Anemia History of Present Illness Narrative: The patient is a 67-year-old female with a past medical history as outlined below who presented to [facility] Emergency room with complaints of generalized weakness. The patient was just recently admitted here to [facility] earlier this month due to suspected appendicitis. She was subsequently admitted underwent appendectomy as well as lysis of adhesions and repositioning of her PD catheter at that time as well. She recovered from that hospitalization and was eventually discharged home. Following her discharge, she noted increased leakage around her PD catheter and this continued to be an ongoing problem with subsequent physical decline. She subsequently went to [facility] for evaluation where she was subsequently admitted and eventually just had her PD catheter removed. It was also noted during that hospitalization that she was quite anemic. It should be noted that during her October hospitalization [facility], she was also anemic and required packed red blood cell transfusion with subsequent EGD that demonstrated esophagitis in association with esophageal ulcer and a pre-pyloric ulcerated mass but the biopsies of this mass were benign. She underwent repeat testing with regard to EGD and colonoscopy at the [facility] according to the patient, findings were ?unremarkable. Since her discharge from [facility], she still endorses significant weakness and fatigue. She noted on the day of admission that she had 3 large black tarry stools which concerned her for possible GI bleed. She presented to [facility] Emergency Room for further assessment. Workup and evaluation emergency room demonstrated the patient to be hemodynamically stable if not hypertensive and she denies any symptoms with regard to fevers, chills, nausea, vomiting, diarrhea, or chest pain. Routine blood test demonstrated significant anemia once again long with labs consistent with her known history of end-stage renal disease. She was found to be guaiac positive as well. Given these constellation of symptoms as well as her com
--- NOTE | 2022-11-27 15:00 | PC.NURSE ---
Dr. Messina notified that medical records requested from [facility] were received.
--- NOTE | 2022-11-27 15:15 | PM.IMPN ---
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 Status: Acute Assessment and Plan: Pt is on OAC (4) Gastric ulcer: Qualifiers: Gastric ulcer chronicity: unspecified ulcer chronicity Gastric ulcer complication status: unspecified whether hemorrhage or perforation present Qualified Code(s): K25.9 - Gastric ulcer, unspecified as acute or chronic, without hemorrhage or perforation Code(s): K25.9 - Gastric ulcer, unspecified as acute or chronic, without hemorrhage or perforation Status: Acute Assessment and Plan: History of DU (5) Hypertension: Qualifiers: Hypertension type: secondary to other renal disorders Qualified Code(s): I15.1 - Hypertension secondary to other renal disorders; N28.89 - Other specified disorders of kidney and ureter Code(s): I10 - Essential (primary) hypertension Status: Acute Assessment and Plan: Continue home medications (6) Esophageal ulcer: Qualifiers: Esophageal ulcer bleeding: with bleeding Qualified Code(s): K22.11 - Ulcer of esophagus with bleeding Code(s): K22.10 - Ulcer of esophagus without bleeding Status: Acute Assessment and Plan: see below (7) Gastric mass: Code(s): K31.89 - Other diseases of stomach and duodenum Status: Acute (8) ESRD (end stage renal disease) on dialysis: Code(s): N18.6 - End stage renal disease; Z99.2 - Dependence on renal dialysis Status: Chronic (9) Memory loss: Code(s): R41.3 - Other amnesia Status: Acute Plan Patient has Hemoccult-positive stools with dark brown to black blood noted by the patient's and ER staff. Stool was tested in the ER. Patient has had a drop in her hemoglobin compared to prior values of 9.4. But patient has been ranging between 7 and 9 on prior values. The patient did also recently have another surgical procedure for removal of her peritoneal dialysis catheter. Her most recent values we do not have access to a she was at an outside facility. Will type and screen the patient has she likely is having some recurrent loss. Likely related to the esophageal and gastric ulcers noted on prior EGD. Will place patient on Protonix 40 mg IV b.i.d.. The patient did receive a loading dose of Protonix 80 mg in the ER. Gastroenterology has been consulted. Will monitor CBC and transfuse as appropriate. The patient is on chronic anticoagulation due to history of atrial fibrillation. Given the patient is having recurrent anemia despite being on erythropoietin medications and iron supplements and she is having recurrent GI blood loss. She may benefit from Watchman procedure. The patient's asked me about this procedure as another doctor had mentioned to him in the past. I encouraged him to discuss that with the patient's outpatient workers compensation examiner after discharge. Certainly at this point the risks of bleeding is much higher than the risks of CVA and patient's Eliquis will be placed on hold. Patient is currently in sinus Octavio. Patient does have end-stage renal disease. If she remains hospitalized she by the . She will need hemodialysis. Will consult Nephrology if she is still hospitalized at that point. The patient's blood pressures are elevated likely secondary to her renal disease. Also think the patient has not received her evening antihypertensives. These have been ordered. Will continu
[2022-11-27] MEDS: MONTELUKAST SODIUM 10 MG TABLET PO (17:18)
--- NOTE | 2022-11-27 17:50 | PHAR ---
DRUG NAME: CHRIS INGREDIENTS: VORTIOXETINE HYDROBROMIDE -- 10 MG RELATED DOCUMENTS: DRUGDEX EVALUATIONS - VORTIOXETINE COLOR: YELLOW SHAPE: OVAL IMPRINT: 10 ; TL IMPRINT CODE DESCRIPTION: DEBOSSED WITH 10 ON ONE SIDE AND TL ON THE OTHER SIDE. FORM: ORAL TABLET
[2022-11-27] MEDS: rOPINIRole HCL 0.5 MG TABLET 1.5 MG PO (21:16)
[2022-11-27] MEDS: TIZANIDINE HCL 4 MG TABLET PO (21:17)
[2022-11-27] MEDS: ATORVASTATIN 40 MG TABLET PO (21:17)
[2022-11-28] VITALS (32 sets, daily range): BP systolic 147–192; BP diastolic 58–100; PULSE 40–76; RESP 10–20; TEMP 36–37; O2SAT 91–97
[2022-11-28 05:12] LABS: Anion Gap 5 mmol/L (8-16); Blood Urea Nitrogen 40 mg/dL (7-17); Calcium 9.4 mg/dL (8.4-10.2); Carbon Dioxide 32 mmol/L (22-30); Chloride 97 mmol/L (98-107); Estimated CRCL calculation 10 ml/min; Estimated Glomerular Filt Rate 8; Glucose 159 mg/dL (65-110); Potassium 4.3 mmol/L (3.4-5.0); Sodium 134 mmol/L (137-145)
[2022-11-28] MEDS: ONDANSETRON INJ 4 MG/2 ML VIAL IV PUSH (05:25)
[2022-11-28 06:10] LABS: Hepatitis B Surface Antigen Negative (Negative)
[2022-11-28 06:16] LABS: HAV RESULT Negative (Negative); Hepatitis B Core IgM Result Negative (Negative)
[2022-11-28 06:29] LABS: Hepatitis B Surface Anti Res Positive; Hepatitis C Virus Antibody Negative (Negative)
[2022-11-28] MEDS: HYDROcodone/acetaminophen (*CRX) 5-325 MG TABLET 1 TAB PO ×2 (06:34→21:19)
[2022-11-28] MEDS: cloNIDine HCL 0.1 MG TABLET PO (06:34)
[2022-11-28] MEDS: hydrALAZINE HCL 50 MG TABLET 100 MG PO ×3 (06:34→21:19)
--- NOTE | 2022-11-28 07:29 | WPDANESPN ---
Anes - Prog Note Post-Op Date/Time: 11/28/22 07:29 Cardiovascular status: normal Respiratory status: normal Airway patency: baseline Mental status: baseline Post-Op hydration status: normal Vital Signs: Last Vital Signs Temp 36.6 C 11/28/22 04:00 Pulse 65 11/28/22 06:00 Resp 18 11/28/22 04:00 BP 176/63 H 11/28/22 04:00 Pulse Ox 95 11/28/22 04:00 O2 Del Method Room Air 11/28/22 03:25 FiO2 21 11/27/22 03:03 Pain Score (VAS): 0/10 I/O: Intake & Output 11/27/22 11/27/22 11/28/22 15:59 23:59 07:59 Intake Total 520 720 250 Output Total 600 350 Balance 520 120 -100 Laboratory Tests 11/27/22 12:54 11/28/22 04:50 11/27/22 11/27/22 11/27/22 07:12 12:54 13:19 Hgb 8.2 L Hct 25.4 L Sodium Potassium Chloride Carbon Dioxide Anion Gap BUN Creatinine Estim Creat Clear Calc Estimated GFR Glucose POC Capillary Glucose 116 H Calcium Hepatitis A IgM Ab Hep Bs Antigen Hep Bs Antibody Hep B Core IgM Ab Hepatitis C Ab Screen Blood Type O Positive Antibody Screen Negative Crossmatch See Detail 11/28/22 04:50 Hgb Hct Sodium 134 L Potassium 4.3 Chloride 97 L Carbon Dioxide 32 H Anion Gap 5 L BUN 40 H Creatinine 5.10 H Estim Creat Clear Calc 10 Estimated GFR 8 L Glucose 159 H POC Capillary Glucose Calcium 9.4 Hepatitis A IgM Ab Negative Hep Bs Antigen Negative Hep Bs Antibody Positive Hep B Core IgM Ab Negative Hepatitis C Ab Screen Negative Blood Type Antibody Screen Crossmatch Post-procedural complaints: none Patient Feedback: Patient satisfied with anesthetic care.
[2022-11-28] MEDS: rOPINIRole HCL 0.5 MG TABLET PO ×2 (09:21→17:58)
[2022-11-28] MEDS: allopurinoL 100 MG TABLET PO (09:21)
[2022-11-28] MEDS: AMANTADINE HCL 100 MG CAPSULE PO (09:21)
[2022-11-28] MEDS: LOSARTAN POTASSIUM 50 MG TABLET PO (09:21)
[2022-11-28] MEDS: PANTOPRAZOLE SODIUM IV 40 MG VIAL IV PUSH ×2 (09:21→17:56)
[2022-11-28] MEDS: FOLIC ACID 0.4 MG TABLET PO (09:21)
[2022-11-28] MEDS: DOCUSATE SODIUM 100 MG CAPSULE 200 MG PO (09:21)
[2022-11-28] MEDS: NIFEdipine 30 MG TAB.ER.24 PO (09:21)
[2022-11-28] MEDS: TIZANIDINE HCL 4 MG TABLET PO (09:22)
[2022-11-28] MEDS: PREGABALIN (*CRX) 50 MG CAPSULE PO ×2 (09:22→18:05)
[2022-11-28] MEDS: levETIRAcetam 250 MG TABLET 750 MG PO ×2 (09:22→21:19)
[2022-11-28] MEDS: lamoTRIgine 50 MG TABLET 150 MG PO ×2 (09:22→21:19)
[2022-11-28] MEDS: polyethylene glycoL 3350 17 GM POWD.PACK PO ×2 (09:23→17:56)
[2022-11-28] MEDS: FLUTICASONE PROPIONATE 0.05% NA SPR 16 GM BTL (*BKC) 1 SPRAY NASAL (09:24)
--- NOTE | 2022-11-28 10:09 | PC.NURSE ---
Notified Dr Parmar of bradycardia,holding clonidine and checking phos and mag.
[2022-11-28 10:33] LABS: Magnesium 2.5 mg/dL (1.6-2.3); Phosphorus 5.2 mg/dL (2.5-4.5)
--- NOTE | 2022-11-28 10:36 | PCPTNOTE ---
Attempted PT evaluation, pt in dialysis. Will follow.
[2022-11-28] MEDS: EPOETIN ALFA-EPBX 10,000 UNITS/ML VIAL 10000 UNITS IV PUSH (12:08)
--- NOTE | 2022-11-28 12:35 | PM.PNNEP ---
Progress Note: A&P Assessment and Plan (1) End stage renal disease: Code(s): N18.6 - End stage renal disease Status: Chronic Assessment and Plan: HD today continue outpatient schedule of T/T/S follow electrolytes, volume status, and clearance (2) Anemia: Code(s): D64.9 - Anemia, unspecified Status: Acute Assessment and Plan: partly related to ESRD however, cannot discount GI loss low H/H on admission guaiac positive stools results of endoscopy here at [facility] noted on last admission recent EGD/colonoscopy at [facility] a few weks -- unremarkable findings per patient Gastroenterology following s/p EGD on 11/27/22 - no active source of bleeding noted follow trend of H/H PRBC transfusion per protocol Epogen with dialysis (3) Hypertension: Qualifiers: Hypertension type: secondary to other renal disorders Qualified Code(s): I15.1 - Hypertension secondary to other renal disorders; N28.89 - Other specified disorders of kidney and ureter Code(s): I10 - Essential (primary) hypertension Status: Acute Assessment and Plan: quite elevated resumed on home medications follow trend of hemodynamics (4) Generalized weakness: Code(s): R53.1 - Weakness Status: Acute Assessment and Plan: suspect due to anemia and recent repeat hospitalizations this has likely led to generalized deconditioning PT/OT as tolerated Will continue to follow. Subjective Date/time seen: 11/28/22 12:35 Interval history: Follow-up for end stage renal disease on hemodialysis. Tolerating dialysis treatment at the time of my visit (seen on HD at 12:20PM); BP elevated and relatively bradycardic but in no apparent distress; H/H relatively stable since PRBC transfusion; s/p EGD yesterday with findings noted. Exam Narrative: General: mildly ill-appearing female in NAD Heart: normal S1 and S2; no rub or gallop Lungs: clear to auscultation Abdomen: soft, nontender, nondistended, positive bowel sounds Extremities: no cyanosis or clubbing; no edema Skin: warm and dry Objective Data Vital Signs Vital Signs: Vital Signs Temp Pulse Resp BP Pulse Ox O2 Del Method 11/28/22 12:20 41 L 162/69 H 11/28/22 12:00 41 L 158/69 H 11/28/22 11:40 42 L 161/69 H 11/28/22 11:20 40 L 157/72 H 11/28/22 11:00 41 L 154/79 H 11/28/22 10:40 42 L 169/66 H 11/28/22 10:19 45 L 155/71 H 11/28/22 10:09 98.4 F 46 L 16 147/67 H 95 11/28/22 10:00 44 L 11/28/22 08:00 44 L Room Air 11/28/22 07:38 97.9 F 57 L 10 L 161/58 H 91 11/28/22 06:00 65 11/28/22 04:00 97.9 F 67 18 176/63 H 95 11/28/22 04:00 68 11/28/22 03:25 76 Room Air 11/28/22 01:57 71 11/28/22 00:00 68 11/28/22 00:00 67 Room Air 11/27/22 22:00 71 11/27/22 20:00 65 11/27/22 23:16 97.8 F 65 18 176/60 H 94 11/27/22 20:00 64 Room Air 11/27/22 19:46 98.0 F 66 18 173/45 H 96 11/27/22 16:00 97 Room Air 11/27/22 16:00 55 L 11/27/22 16:00 97.2 F L 53 L 16 184/56 H 98 11/27/22 14:33 57 L 21 H 198/89 H 97 Room Air 11/27/22 14:23 59 L 20 189/82 H 98 Room Air 11/27/22 14:13 56 L 20 185/82 H 97 Room Air Intake/Output Intake/Output: Intake & Output 11/25/22 11/26/22 11/27/22 11/28/22 23:59 23:59 23:59 23:59 Intake Total 1390 370 Output Total 600 350 Balance 790 20 Meds/Results Medications: Active Medications Generic Name Dose Route Start Last Admin Trade Name Freq PRN Reason Stop Dose Admin Acetaminophen 650 mg 11/26/22 23:30 Acetaminophen 325 Mg Tablet PO Q6H PRN Mild Pain (1-3) or Fever Hydrocodone Bitart/Acetaminophen 1 tab 11/26/22 23:30 11/28/22 06:34 Hydrocodone/Acetaminophen (*Crx) 5-325 Mg Tablet PO 1 tab Q6H PRN Administration P
--- NOTE | 2022-11-28 12:35 | P.PNNP_ITS ---
Progress Note: A&P Assessment and Plan (1) End stage renal disease: Code(s): N18.6 - End stage renal disease Status: Chronic Assessment and Plan: * HD today * continue outpatient schedule of T/T/S * follow electrolytes, volume status, and clearance (2) Anemia: Code(s): D64.9 - Anemia, unspecified Status: Acute Assessment and Plan: * partly related to ESRD * however, cannot discount GI loss * low H/H on admission * guaiac positive stools * results of endoscopy here at [facility] noted on last admission * recent EGD/colonoscopy at [facility] a few weks -- unremarkable findings per patient * Gastroenterology following * s/p EGD on 11/27/22 - no active source of bleeding noted * follow trend of H/H * PRBC transfusion per protocol * Epogen with dialysis (3) Hypertension: Qualifiers: Hypertension type: secondary to other renal disorders Qualified Code(s): I15.1 - Hypertension secondary to other renal disorders; N28.89 - Other specified disorders of kidney and ureter Code(s): I10 - Essential (primary) hypertension Status: Acute Assessment and Plan: * quite elevated * resumed on home medications * follow trend of hemodynamics (4) Generalized weakness: Code(s): R53.1 - Weakness Status: Acute Assessment and Plan: * suspect due to anemia and recent repeat hospitalizations * this has likely led to generalized deconditioning * PT/OT as tolerated Will continue to follow. Subjective Date/time seen: 11/28/22 12:35 Interval history: Follow-up for end stage renal disease on hemodialysis. Tolerating dialysis treatment at the time of my visit (seen on HD at 12:20PM); BP elevated and relatively bradycardic but in no apparent distress; H/H relatively stable since PRBC transfusion; s/p EGD yesterday with findings noted. Exam Narrative: General: mildly ill-appearing female in NAD Heart: normal S1 and S2; no rub or gallop Lungs: clear to auscultation Abdomen: soft, nontender, nondistended, positive bowel sounds Extremities: no cyanosis or clubbing; no edema Skin: warm and dry Objective Data Vital Signs Vital Signs: Vital Signs Temp Pulse Resp BP Pulse Ox O2 Del Method 11/28/22 12:20 41 L 162/69 H 11/28/22 12:00 41 L 158/69 H 11/28/22 11:40 42 L 161/69 H 11/28/22 11:20 40 L 157/72 H 11/28/22 11:00 41 L 154/79 H 11/28/22 10:40 42 L 169/66 H 11/28/22 10:19 45 L 155/71 H 11/28/22 10:09 98.4 F 46 L 16 147/67 H 95 11/28/22 10:00 44 L 11/28/22 08:00 44 L Room Air 11/28/22 07:38 97.9 F 57 L 10 L 161/58 H 91 11/28/22 06:00 65 11/28/22 04:00 97.9 F 67 18 176/63 H 95 11/28/22 04:00 68 11/28/22 03:25 76 Room Air 11/28/22 01:57 71 11/28/22 00:00 68 11/28/22 00:00 67 Room Air 11/27/22 22:00 71 11/27/22 20:00 65 11/27/22 23:16 97.8 F 65 18 176/60 H 94 11/27/22 20:00 64 Room Air 11/27/22 19:46 98.0 F 66 18 173/45 H 96 11/27/22 16:00 97 Room Air 11/27/22 16:00 55 L 11/27/22 16:00 97.2 F L 53 L 16 184/56 H 98 11/27/22
[2022-11-28 13:48] LABS: Hematocrit 26.4 % (37.0-47.0); Hemoglobin 8.3 g/dL (12.0-15.0); Mean Corpuscular HGB Conc 31.4 g/dl (32-36); Mean Corpuscular Hemoglobin 30.7 pg (26-34); Mean Corpuscular Volume 97.8 fl (80-100); Mean Platelet Volume 11.1 fl (7.4-10.4); Platelet Count Result 132 k/mm3 (150-375); Red Cell Distribution Width 14.6 % (11.5-14.5); White Blood Count 9.6 K/mm3 (4.5-10.0)
--- NOTE | 2022-11-28 15:17 | WPDGIPROGNO ---
Progress Note: A&P Assessment and Plan (1) Symptomatic anemia: Code(s): D64.9 - Anemia, unspecified Status: Acute Assessment and Plan: She has had black stools for the last couple of days and she is again anemic with a hemoglobin of 6.6. She does not believe that she has been taking Eliquis but she cannot be certain because there was her who ranges her pills. She had EGD and colonoscopy at another hospital a couple weeks ago and those studies were said to be unremarkable. hemoglobin is holding at 8.3 hopefully she will not have any further bleeding stain off Eliquis. (2) Gastric mass: Code(s): K31.89 - Other diseases of stomach and duodenum Status: Acute Assessment and Plan: Biopsies done a few weeks ago were negative. The endoscopist at [facility] told her that they saw nothing abnormal at all. 11/28/2022 EGD yesterday did show significant reduction in the size of the pre-pyloric swallowing seen on her EGD 4 weeks ago. Also the ulcerations have healed other than a few linear erosions (3) Gastric ulcer: Qualifiers: Gastric ulcer chronicity: unspecified ulcer chronicity Gastric ulcer complication status: unspecified whether hemorrhage or perforation present Qualified Code(s): K25.9 - Gastric ulcer, unspecified as acute or chronic, without hemorrhage or perforation Code(s): K25.9 - Gastric ulcer, unspecified as acute or chronic, without hemorrhage or perforation Status: Acute Assessment and Plan: She has been on pantoprazole for the past few weeks. Denies epigastric pain ulcers are now healed except for few linear erosions in the pre-pyloric area (4) ESRD (end stage renal disease) on dialysis: Code(s): N18.6 - End stage renal disease; Z99.2 - Dependence on renal dialysis Status: Chronic Assessment and Plan: on dialysis now 3 times a week. creatinine is up to 5.1 now verses 3, two days ago. I believe that she will be having dialysis today Plan Will perform EGD today to investigate recurrent melena and also assess the healing of her previously found ulcers. Subjective Date/time seen: 11/28/22 15:17 She is feeling good today. She believes that she will be having dialysis. There has been no sign of bleeding overnight. We discussed the fact that her seems to be agreement that she should stay off of Eliquis for now. Exam Const: General: alert Orientation/consciousness: patient oriented x3 Resp: Auscultation: clear to auscultation bilaterally Cardio: Rhythm: regular rhythm GI: GI Palp: Yes Soft to palpation and No Tenderness to palpation present (GI) Neuro: General: patient oriented x3 Objective Data Vital Signs Vital Signs: Vital Signs - 24 hr 11/27/22 16:00 11/27/22 16:00 11/27/22 16:00 Temperature 36.2 C L Pulse Rate 53 L 55 L Respiratory Rate 16 Blood Pressure 184/56 H Pulse Oximetry 98 97 Oxygen Delivery Room Air 11/27/22 19:46 11/27/22 20:00 11/27/22 23:16 Temperature 36.7 C 36.6 C Pulse Rate 66 64 65 Respiratory Rate 18 18 Blood Pressure 173/45 H 176/60 H Pulse Oximetry 96 94 Oxygen Delivery Room Air 11/27/22 20:00 11/27/22 22:00 11/28/22 00:00 Temperature Pulse Rate 65 71 67 Respiratory Rate Blood Pressure Pulse Oximetry Oxygen Delivery Room Air 11/28/22 00:00 11/28/22 01:57 11/28/22 03:25 Temperature Pulse Rate 68 71 76 Respiratory Rate Blood Pressure Pulse Oximetry Oxygen Delivery Room Air 11/28/22 04:00 11/28/22 04:00 11/28/22 06:00 Temperature 36.6 C Pulse Rate 68 67 65 Respiratory Rate 18 Blood Pressure 176/63 H Pulse Oximetry 95 Oxygen Delivery 11/28/22 07:38 11/28/22 08:00 11/28/22 10:00 Temperature 36.6 C Pulse Rate 57 L 44 L 44 L Respiratory Rate 10 L Blood Pressure 161/58 H Pulse Oximetry 91 Oxygen Delivery Room Air 11/28/22 10:09 11/28/22 10:19 06
[2022-11-28] MEDS: MONTELUKAST SODIUM 10 MG TABLET PO (17:57)
[2022-11-28] MEDS: GENTAMICIN SULFATE 0.1% CR 15 GM TUBE 1 APPLIC TOPICAL (18:09)
[2022-11-28] MEDS: ATORVASTATIN 40 MG TABLET PO (21:19)
[2022-11-28] MEDS: rOPINIRole HCL 0.5 MG TABLET 1.5 MG PO (21:19)
[2022-11-28] MEDS: ALPRAZolam (*CRX) 0.5 MG TABLET PO (21:20)
[2022-11-29] VITALS (19 sets, daily range): BP systolic 155–211; BP diastolic 58–78; PULSE 63–81; RESP 18–20; TEMP 35.9–37.2; O2SAT 94–99
[2022-11-29] MEDS: HYDROcodone/acetaminophen (*CRX) 5-325 MG TABLET 1 TAB PO ×2 (05:14→17:12)
[2022-11-29] MEDS: hydrALAZINE HCL 50 MG TABLET 100 MG PO ×3 (05:14→20:55)
[2022-11-29] MEDS: LOSARTAN POTASSIUM 50 MG TABLET PO (08:02)
[2022-11-29] MEDS: lamoTRIgine 50 MG TABLET 150 MG PO ×2 (08:02→20:55)
[2022-11-29] MEDS: NIFEdipine 30 MG TAB.ER.24 PO (08:03)
[2022-11-29] MEDS: levETIRAcetam 250 MG TABLET 750 MG PO ×2 (08:04→20:55)
[2022-11-29] MEDS: polyethylene glycoL 3350 17 GM POWD.PACK PO ×2 (08:06→17:11)
[2022-11-29] MEDS: PANTOPRAZOLE SODIUM IV 40 MG VIAL IV PUSH ×2 (08:07→16:46)
[2022-11-29] MEDS: GENTAMICIN SULFATE 0.1% CR 15 GM TUBE 1 APPLIC TOPICAL (08:08)
[2022-11-29] MEDS: FLUTICASONE PROPIONATE 0.05% NA SPR 16 GM BTL (*BKC) 1 SPRAY NASAL (08:08)
[2022-11-29] MEDS: DOCUSATE SODIUM 100 MG CAPSULE 200 MG PO (08:08)
[2022-11-29] MEDS: allopurinoL 100 MG TABLET PO (08:09)
[2022-11-29] MEDS: AMANTADINE HCL 100 MG CAPSULE PO (08:09)
[2022-11-29] MEDS: FOLIC ACID 0.4 MG TABLET PO (08:10)
[2022-11-29] MEDS: rOPINIRole HCL 0.5 MG TABLET PO ×2 (08:10→17:12)
[2022-11-29] MEDS: PREGABALIN (*CRX) 50 MG CAPSULE PO ×2 (08:16→17:13)
--- NOTE | 2022-11-29 09:01 | PM.IMPN ---
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 Status: Acute Assessment and Plan: Pt is on OAC, held, consider watchman procedure due to afib with recurrent bleeding on a/c (4) Gastric ulcer: Qualifiers: Gastric ulcer chronicity: unspecified ulcer chronicity Gastric ulcer complication status: unspecified whether hemorrhage or perforation present Qualified Code(s): K25.9 - Gastric ulcer, unspecified as acute or chronic, without hemorrhage or perforation Code(s): K25.9 - Gastric ulcer, unspecified as acute or chronic, without hemorrhage or perforation Status: Acute Assessment and Plan: h/o PUD (5) Hypertension: Qualifiers: Hypertension type: secondary to other renal disorders Qualified Code(s): I15.1 - Hypertension secondary to other renal disorders; N28.89 - Other specified disorders of kidney and ureter Code(s): I10 - Essential (primary) hypertension Status: Acute Assessment and Plan: Continue home medications (6) Esophageal ulcer: Qualifiers: Esophageal ulcer bleeding: with bleeding Qualified Code(s): K22.11 - Ulcer of esophagus with bleeding Code(s): K22.10 - Ulcer of esophagus without bleeding Status: Acute Assessment and Plan: per GI try reglan prior to food intake (7) Gastric mass: Code(s): K31.89 - Other diseases of stomach and duodenum Status: Acute (8) ESRD (end stage renal disease) on dialysis: Code(s): N18.6 - End stage renal disease; Z99.2 - Dependence on renal dialysis Status: Chronic (9) Memory loss: Code(s): R41.3 - Other amnesia Status: Acute Plan Patient has Hemoccult-positive stools with dark brown to black blood noted by the patient's and ER staff. Stool was tested in the ER. Patient has had a drop in her hemoglobin compared to prior values of 9.4. But patient has been ranging between 7 and 9 on prior values. The patient did also recently have another surgical procedure for removal of her peritoneal dialysis catheter. Likely related to the esophageal and gastric ulcers noted on prior EGD. The patient is on chronic anticoagulation due to history of atrial fibrillation. Given the patient is having recurrent anemia despite being on erythropoietin medications and iron supplements and she is having recurrent GI blood loss. She may benefit from Watchman procedure. The patient's asked me about this procedure as another doctor had mentioned to him in the past. I encouraged him to discuss that with the patient's outpatient cut off saw set up operator after discharge. Patient does seem to have some difficulty with short-term memory but it seemed extremely mild. The patient's was there to assist with providing information. I did receive permission from the patient for him to be present. The patient's states that he is her [id number]. They did get Healthcare power of estate attorney set up during her last hospitalization at [facility]. Patient would benefit from neuro cognitive testing if memory problems are persisting. However a portion of her symptoms are likely due to her recurrent multiple hospitalizations and chronic illness. DVT prophylaxis with SCDs--hold eliquis GI prophylaxis not indicated Code status full code Subjective Date/time seen: 11/29/22 09:01 Interval history: No overnight events noted. No chest pain or sh
[2022-11-29 10:27] LABS: Basophils Absolute Auto 0.1 K/mm3 (0.0-0.1); Basophils Percent Auto 0.8 % (0.2-1.2); Eosinophils Absolute Auto 0.3 K/mm3 (0-0.3); Eosinophils Percent Auto 2.9 % (0-4.4); Hematocrit 28.7 % (37.0-47.0); Hemoglobin 9.2 g/dL (12.0-15.0); Immature Granulocyte Absolute 0.07 K/mm3 (0.00-0.031); Immature Granulocyte Percent A 0.8 % (0-0.5); Lymphocytes Absolute Auto 1.11 K/mm3 (0.9-3.2); Lymphocytes Percent Auto 12.1 % (18.3-44.2); Mean Corpuscular HGB Conc 32.1 g/dl (32-36); Mean Corpuscular Hemoglobin 30.8 pg (26-34); Mean Platelet Volume 10.1 fl (7.4-10.4); Monocytes Absolute Auto 0.8 K/mm3 (0.1-0.6); Monocytes Percent Auto 8.5 % (2.6-8.5); Neutrophils Absolute Auto 6.9 K/mm3 (1.3-6.7); Neutrophils Percent Auto 74.9 % (45.5-73.1); Platelet Count Result 147 k/mm3 (150-375); Red Blood Count 2.99 M/mm3 (4.2-5.4); Red Cell Distribution Width 14.2 % (11.5-14.5); White Blood Count 9.2 K/mm3 (4.5-10.0)
[2022-11-29 10:46] LABS: Alanine Aminotransferase 15 U/L (6-35); Albumin Level 3.7 g/dL (3.5-5.1); Alkaline Phosphatase 130 U/L (38-126); Anion Gap 10 mmol/L (8-16); Aspartate Amino Transferase 25 U/L (14-36); Bilirubin,Total 0.6 mg/dL (0.2-1.3); Blood Urea Nitrogen 29 mg/dL (7-17); Calcium 9.7 mg/dL (8.4-10.2); Carbon Dioxide 27 mmol/L (22-30); Chloride 97 mmol/L (98-107); Estimated CRCL calculation 15 ml/min; Estimated Glomerular Filt Rate 13; Glucose 225 mg/dL (65-110); Potassium 4.7 mmol/L (3.4-5.0); Sodium 134 mmol/L (137-145)
[2022-11-29] MEDS: ONDANSETRON INJ 4 MG/2 ML VIAL IV PUSH (11:47)
--- NOTE | 2022-11-29 11:47 | PM.PNNEP ---
Progress Note: A&P Assessment and Plan (1) End stage renal disease: Code(s): N18.6 - End stage renal disease Status: Chronic Assessment and Plan: HD tomorrow continue outpatient schedule of T/T/S follow electrolytes, volume status, and clearance (2) Anemia: Code(s): D64.9 - Anemia, unspecified Status: Acute Assessment and Plan: partly related to ESRD however, cannot discount GI loss low H/H on admission guaiac positive stools results of endoscopy here at [place] noted on last admission recent EGD/colonoscopy at [facility] a few weks -- unremarkable findings per patient Gastroenterology following s/p EGD on 11/27/22 - no active source of bleeding noted follow trend of H/H PRBC transfusion per protocol Epogen with dialysis (3) Hypertension: Qualifiers: Hypertension type: secondary to other renal disorders Qualified Code(s): I15.1 - Hypertension secondary to other renal disorders; N28.89 - Other specified disorders of kidney and ureter Code(s): I10 - Essential (primary) hypertension Status: Acute Assessment and Plan: fluctuating resumed on home medications consider increasing procardia XL dose if continues to run high follow trend of hemodynamics (4) Generalized weakness: Code(s): R53.1 - Weakness Status: Acute Assessment and Plan: suspect due to anemia and recent repeat hospitalizations this has likely led to generalized deconditioning PT/OT as tolerated Will continue to follow. Subjective Date/time seen: 11/29/22 11:47 Interval history: Follow-up for end stage renal disease on hemodialysis. Tolerated dialysis treatment yesterday without any issue or problems; H/H remains stable if not improving in the last 24 - 48 hours; BP has been running high today (but these readings are before she got her BP medications; no other acute distress noted. Exam Narrative: General: mildly ill-appearing female in NAD Heart: normal S1 and S2; no rub Lungs: clear to auscultation Abdomen: soft, nontender, nondistended, positive bowel sounds Extremities: no cyanosis or clubbing; no edema Skin: warm and intact Objective Data Vital Signs Vital Signs: Vital Signs Temp Pulse Resp BP Pulse Ox O2 Del Method FiO2 11/29/22 10:00 64 11/29/22 09:01 Room Air 11/29/22 08:00 96 Room Air 11/29/22 08:00 78 11/29/22 08:35 96 Room Air 11/29/22 07:58 97.8 F 78 20 200/71 H 94 11/29/22 06:00 75 11/29/22 04:00 97.6 F 71 20 197/69 H 97 11/29/22 04:00 75 Room Air 11/29/22 04:00 76 11/29/22 00:00 81 11/28/22 23:05 61 Room Air 21 11/28/22 23:02 98.6 F 65 20 168/60 H 97 11/28/22 22:00 71 11/28/22 20:00 67 11/28/22 20:00 66 Room Air 11/28/22 19:57 97.9 F 68 18 171/63 H 97 11/28/22 18:00 66 11/28/22 16:00 50 L 11/28/22 16:00 57 L Room Air 11/28/22 14:00 45 L 11/28/22 14:00 45 L Room Air 11/28/22 16:12 97.9 F 51 L 20 162/60 H 92 11/28/22 15:20 Room Air 11/28/22 14:02 98.0 F 45 L 18 183/74 H 95 11/28/22 13:49 45 L 192/86 H 11/28/22 13:40 44 L 185/80 H Intake/Output Intake/Output: Intake & Output 11/26/22 11/27/22 11/28/22 11/29/22 23:59 23:59 23:59 23:59 Intake Total 2764 979 5735 Output Total 600 2450 0 Balance 790 -1660 1100 Meds/Results Medications: Active Medications Generic Name Dose Route Start Last Admin Trade Name Freq PRN Reason Stop Dose Admin Acetaminophen 650 mg 11/26/22 23:30 Acetaminophen 325 Mg Tablet PO Q6H PRN Mild Pain (1-3) or Fever Hydrocodone Bitart/Acetaminophen 1 tab 11/26/22 23:30 11/29/22 05:14 Hydrocodone/Acetaminophen (*Crx) 5-325 Mg Tablet PO 1 tab Q6H PRN Administration Pain Rated 4-6 Allopurinol
--- NOTE | 2022-11-29 11:47 | P.PNNP_ITS ---
Progress Note: A&P Assessment and Plan (1) End stage renal disease: Code(s): N18.6 - End stage renal disease Status: Chronic Assessment and Plan: * HD tomorrow * continue outpatient schedule of T/T/S * follow electrolytes, volume status, and clearance (2) Anemia: Code(s): D64.9 - Anemia, unspecified Status: Acute Assessment and Plan: * partly related to ESRD * however, cannot discount GI loss * low H/H on admission * guaiac positive stools * results of endoscopy here at [place] noted on last admission * recent EGD/colonoscopy at [facility] a few weks -- unremarkable findings per patient * Gastroenterology following * s/p EGD on 11/27/22 - no active source of bleeding noted * follow trend of H/H * PRBC transfusion per protocol * Epogen with dialysis (3) Hypertension: Qualifiers: Hypertension type: secondary to other renal disorders Qualified Code(s): I15.1 - Hypertension secondary to other renal disorders; N28.89 - Other specified disorders of kidney and ureter Code(s): I10 - Essential (primary) hypertension Status: Acute Assessment and Plan: * fluctuating * resumed on home medications * consider increasing procardia XL dose if continues to run high * follow trend of hemodynamics (4) Generalized weakness: Code(s): R53.1 - Weakness Status: Acute Assessment and Plan: * suspect due to anemia and recent repeat hospitalizations * this has likely led to generalized deconditioning * PT/OT as tolerated Will continue to follow. Subjective Date/time seen: 11/29/22 11:47 Interval history: Follow-up for end stage renal disease on hemodialysis. Tolerated dialysis treatment yesterday without any issue or problems; H/H remains stable if not improving in the last 24 - 48 hours; BP has been running high today (but these readings are before she got her BP medications; no other acute distress noted. Exam Narrative: General: mildly ill-appearing female in NAD Heart: normal S1 and S2; no rub Lungs: clear to auscultation Abdomen: soft, nontender, nondistended, positive bowel sounds Extremities: no cyanosis or clubbing; no edema Skin: warm and intact Objective Data Vital Signs Vital Signs: Vital Signs Temp Pulse Resp BP Pulse Ox O2 Del Method FiO2 11/29/22 10:00 64 11/29/22 09:01 Room Air 11/29/22 08:00 96 Room Air 11/29/22 08:00 78 11/29/22 08:35 96 Room Air 11/29/22 07:58 97.8 F 78 20 200/71 H 94 11/29/22 06:00 75 11/29/22 04:00 97.6 F 71 20 197/69 H 97 11/29/22 04:00 75 Room Air 11/29/22 04:00 76 11/29/22 00:00 81 11/28/22 23:05 61 Room Air 21 11/28/22 23:02 98.6 F 65 20 168/60 H 97 11/28/22 22:00 71 11/28/22 20:00 67 11/28/22 20:00 66 Room Air 11/28/22 19:57 97.9 F 68 18 171/63 H 97 11/28/22 18:00 66 11/28/22 16:00 50 L 11/28/22 16:00 57 L Room Air 11/28/22 14:00 45 L 11/28/22 14:00 45 L Room Air 11/28/22 16:12 97.9 F 51 L 20 162/60 H 92 11/28/22 15:20 Room Air 11/28/22 14:02 98.0 F 45 L 18
--- NOTE | 2022-11-29 12:00 | PC.NURSE ---
Dr. Sainz notified of 1200 BP. No intervention at this time.
--- NOTE | 2022-11-29 12:35 | PCPTNOTE ---
On 11/29/22, the student, [Lucy Mcguire], provided care and completed [facility] documentation on this patient. I have reviewed the student's documentation and agree with the findings.
--- NOTE | 2022-11-29 15:52 | PM.DS ---
DS: Admitting Diagnosis Discharge Date 11/30/22 Admitting Diagnosis melena DS: Discharge Diagnosis Discharge Diagnosis (1) GI bleed: Qualifiers: GI bleed type/associated pathology: melena Qualified Code(s): K92.1 - Melena Code(s): K92.2 - Gastrointestinal hemorrhage, unspecified Status: Acute Assessment and Plan: GI consulted, EGD planned S/p blood transfusion (2) Symptomatic anemia: Code(s): D64.9 - Anemia, unspecified Status: Acute Assessment and Plan: hgb stable, cont to monitor (3) Chronic anticoagulation: Code(s): Z79.01 - longterm (current) use of anticoagulants Status: Acute Assessment and Plan: Pt is on OAC, held, consider watchman procedure due to afib with recurrent bleeding on a/c (4) Gastric ulcer: Qualifiers: Gastric ulcer chronicity: unspecified ulcer chronicity Gastric ulcer complication status: unspecified whether hemorrhage or perforation present Qualified Code(s): K25.9 - Gastric ulcer, unspecified as acute or chronic, without hemorrhage or perforation Code(s): K25.9 - Gastric ulcer, unspecified as acute or chronic, without hemorrhage or perforation Status: Acute Assessment and Plan: h/o PUD (5) Hypertension: Qualifiers: Hypertension type: secondary to other renal disorders Qualified Code(s): I15.1 - Hypertension secondary to other renal disorders; N28.89 - Other specified disorders of kidney and ureter Code(s): I10 - Essential (primary) hypertension Status: Acute Assessment and Plan: Continue home medications (6) Esophageal ulcer: Qualifiers: Esophageal ulcer bleeding: with bleeding Qualified Code(s): K22.11 - Ulcer of esophagus with bleeding Code(s): K22.10 - Ulcer of esophagus without bleeding Status: Acute Assessment and Plan: per GI try reglan prior to food intake (7) Gastric mass: Code(s): K31.89 - Other diseases of stomach and duodenum Status: Acute (8) ESRD (end stage renal disease) on dialysis: Code(s): N18.6 - End stage renal disease; Z99.2 - Dependence on renal dialysis Status: Chronic (9) Memory loss: Code(s): R41.3 - Other amnesia Status: Acute Plan Patient has Hemoccult-positive stools with dark brown to black blood noted by the patient's and ER staff. Stool was tested in the ER. Patient has had a drop in her hemoglobin compared to prior values of 9.4. But patient has been ranging between 7 and 9 on prior values. The patient did also recently have another surgical procedure for removal of her peritoneal dialysis catheter. Likely related to the esophageal and gastric ulcers noted on prior EGD. The patient is on chronic anticoagulation due to history of atrial fibrillation. Given the patient is having recurrent anemia despite being on erythropoietin medications and iron supplements and she is having recurrent GI blood loss. She may benefit from Watchman procedure. The patient's asked me about this procedure as another doctor had mentioned to him in the past. I encouraged him to discuss that with the patient's outpatient imager after discharge. Patient does seem to have some difficulty with short-term memory but it seemed extremely mild. The patient's was there to assist with providing information. I did receive permission from the patient for him to be present. The patient's states that he is her [id number]. They did get Healthcare power of trial attorney set up during her last hospitalization at [facility]. Patient would benefit from neuro cognitive testing if memory problems are persisting. However a portion of her symptoms are likely due to her recurrent multiple hospitalizations and chronic illness. DVT prophylaxis with SCDs--hold eliquis GI prophylaxis not indicated Code status full code DS: Summary Hospital Course H
[2022-11-29] MEDS: SUCRALFATE SUSP 100 MG/ML 10 ML UDC 1000 MG PO ×2 (16:45→20:55)
[2022-11-29] MEDS: MONTELUKAST SODIUM 10 MG TABLET PO (16:46)
[2022-11-29] MEDS: METOCLOPRAMIDE HCL INJ 10 MG/2 ML VIAL IV PUSH (17:11)
[2022-11-29] MEDS: ALPRAZolam (*CRX) 0.5 MG TABLET PO (17:13)
[2022-11-29] MEDS: ATORVASTATIN 40 MG TABLET PO (20:55)
[2022-11-29] MEDS: rOPINIRole HCL 0.5 MG TABLET 1.5 MG PO (20:56)
[2022-11-30] VITALS (21 sets, daily range): BP systolic 177–236; BP diastolic 55–97; PULSE 63–90; RESP 16–22; TEMP 35–36.9; O2SAT 94–97
[2022-11-30] MEDS: METOCLOPRAMIDE HCL INJ 10 MG/2 ML VIAL IV PUSH ×3 (01:51→14:48)
[2022-11-30] MEDS: HYDROcodone/acetaminophen (*CRX) 5-325 MG TABLET 1 TAB PO (01:58)
[2022-11-30] MEDS: ALPRAZolam (*CRX) 0.5 MG TABLET PO (01:58)
[2022-11-30 04:35] LABS: Basophils Absolute Auto 0.1 K/mm3 (0.0-0.1); Basophils Percent Auto 0.7 % (0.2-1.2); Eosinophils Absolute Auto 0.4 K/mm3 (0-0.3); Eosinophils Percent Auto 4.7 % (0-4.4); Hematocrit 26.9 % (37.0-47.0); Hemoglobin 8.6 g/dL (12.0-15.0); Immature Granulocyte Absolute 0.07 K/mm3 (0.00-0.031); Immature Granulocyte Percent A 0.8 % (0-0.5); Lymphocytes Absolute Auto 1.19 K/mm3 (0.9-3.2); Lymphocytes Percent Auto 13.2 % (18.3-44.2); Mean Corpuscular Hemoglobin 30.6 pg (26-34); Mean Corpuscular Volume 95.7 fl (80-100); Mean Platelet Volume 10.3 fl (7.4-10.4); Monocytes Absolute Auto 0.9 K/mm3 (0.1-0.6); Monocytes Percent Auto 9.6 % (2.6-8.5); Neutrophils Absolute Auto 6.4 K/mm3 (1.3-6.7); Platelet Count Result 151 k/mm3 (150-375); Red Blood Count 2.81 M/mm3 (4.2-5.4); Red Cell Distribution Width 14.2 % (11.5-14.5)
[2022-11-30 04:48] LABS: Alanine Aminotransferase 13 U/L (6-35); Albumin Level 3.4 g/dL (3.5-5.1); Alkaline Phosphatase 142 U/L (38-126); Anion Gap 7 mmol/L (8-16); Aspartate Amino Transferase 18 U/L (14-36); Bilirubin,Total 0.4 mg/dL (0.2-1.3); Blood Urea Nitrogen 36 mg/dL (7-17); Calcium 9.8 mg/dL (8.4-10.2); Carbon Dioxide 27 mmol/L (22-30); Chloride 100 mmol/L (98-107); Estimated CRCL calculation 11 ml/min; Estimated Glomerular Filt Rate 9; Glucose 151 mg/dL (65-110); Potassium 4.3 mmol/L (3.4-5.0); Sodium 134 mmol/L (137-145)
[2022-11-30] MEDS: hydrALAZINE HCL 50 MG TABLET 100 MG PO ×2 (06:04→14:48)
[2022-11-30] MEDS: SUCRALFATE SUSP 100 MG/ML 10 ML UDC 1000 MG PO ×2 (06:05→14:49)
[2022-11-30] MEDS: NIFEdipine 30 MG TAB.ER.24 60 MG PO (11:07)
[2022-11-30] MEDS: EPOETIN ALFA-EPBX 10,000 UNITS/ML VIAL 10000 UNITS IV PUSH (11:13)
[2022-11-30] MEDS: LOSARTAN POTASSIUM 50 MG TABLET PO (12:01)
[2022-11-30] MEDS: rOPINIRole HCL 0.5 MG TABLET PO (14:48)
[2022-11-30] MEDS: DOCUSATE SODIUM 100 MG CAPSULE 200 MG PO (14:48)
[2022-11-30] MEDS: lamoTRIgine 50 MG TABLET 150 MG PO (14:48)
[2022-11-30] MEDS: levETIRAcetam 250 MG TABLET 750 MG PO (14:49)
[2022-11-30] MEDS: GENTAMICIN SULFATE 0.1% CR 15 GM TUBE 1 APPLIC TOPICAL (14:49)
[2022-11-30] MEDS: PANTOPRAZOLE SODIUM IV 40 MG VIAL IV PUSH (14:49)
[2022-11-30] MEDS: FOLIC ACID 0.4 MG TABLET PO (14:49)
[2022-11-30] MEDS: allopurinoL 100 MG TABLET PO (14:49)
[2022-11-30] MEDS: FLUTICASONE PROPIONATE 0.05% NA SPR 16 GM BTL (*BKC) 1 SPRAY NASAL (14:50)
[2022-11-30] MEDS: polyethylene glycoL 3350 17 GM POWD.PACK PO (14:50)
[2022-11-30] MEDS: AMANTADINE HCL 100 MG CAPSULE PO (14:50)
--- NOTE | 2022-11-30 14:55 | P.PNNP_ITS ---
Progress Note: A&P Assessment and Plan (1) End stage renal disease: Code(s): N18.6 - End stage renal disease Status: Chronic Assessment and Plan: * HD underway. * continue outpatient schedule of T/T/S * follow electrolytes, volume status, and clearance (2) Anemia: Code(s): D64.9 - Anemia, unspecified Status: Acute Assessment and Plan: * partly related to ESRD * EPO given today at 11:15 a.m. * however, cannot discount GI loss * low H/H on admission * guaiac positive stools * results of endoscopy here at [place] noted on last admission * recent EGD/colonoscopy at [facility] a few weks -- unremarkable findings per patient * Gastroenterology following * s/p EGD on 11/27/22 - no active source of bleeding noted * Check a CBC tomorrow (3) Hypertension: Qualifiers: Hypertension type: secondary to other renal disorders Qualified Code(s): I15.1 - Hypertension secondary to other renal disorders; N28.89 - Other specified disorders of kidney and ureter Code(s): I10 - Essential (primary) hypertension Status: Acute Assessment and Plan: * fluctuating * Blood pressure is quite high. It did not come down very much with removal of fluid. * She is on hydralazine losartan nifedipine (dose just increased today). Will give an order for clonidine p.r.n. as well. (4) Generalized weakness: Code(s): R53.1 - Weakness Status: Acute Assessment and Plan: * suspect due to anemia and recent repeat hospitalizations * this has likely led to generalized deconditioning * PT/OT as tolerated Subjective Date/time seen: 11/30/22 14:55 Interval history: Yasmin is feeling okay. She is somewhat sleepy. She is on dialysis and tolerating it well. They are going for 3L. She was seen at 1:00 p.m. No chest pain or shortness of breath Exam Narrative: General: mildly ill-appearing female in NAD Heart: normal S1 and S2; no rub or subcu nodules Lungs: clear to auscultation Abdomen: soft, nontender, nondistended, positive bowel sounds Extremities: no cyanosis or clubbing; no edema Skin: No rash Objective Data Vital Signs Vital Signs: Vital Signs - 24 hr 11/29/22 16:20 11/29/22 16:00 11/29/22 16:00 Temperature 97.0 F L Pulse Rate 65 70 Respiratory Rate 20 Blood Pressure 174/63 H Pulse Oximetry 97 98 Oxygen Delivery Room Air 11/29/22 18:00 11/29/22 20:00 11/29/22 20:00 Temperature 98.9 F Pulse Rate 76 71 Respiratory Rate 18 Blood Pressure 155/58 H Pulse Oximetry 98 Oxygen Delivery Room Air 11/29/22 23:07 11/29/22 20:00 11/29/22 22:00 Temperature 97.5 F L Pulse Rate 70 74 69 Respiratory Rate 20 Blood Pressure 161/68 H Pulse Oximetry 97 Oxygen Delivery 11/30/22 00:00 11/30/22 00:00 11/30/22 02:00 Temperature Pulse Rate 72 69 Respiratory Rate Blood Pressure Pulse Oximetry Oxygen Delivery Room Air 11/30/22 04:00 11/30/22 04:00 11/30/22 04:00 Temperature 98.4 F Pulse Rate 82 82 Respiratory Rate 20
--- NOTE | 2022-11-30 14:55 | PM.PNNEP ---
Progress Note: A&P Assessment and Plan (1) End stage renal disease: Code(s): N18.6 - End stage renal disease Status: Chronic Assessment and Plan: HD underway. continue outpatient schedule of T/T/S follow electrolytes, volume status, and clearance (2) Anemia: Code(s): D64.9 - Anemia, unspecified Status: Acute Assessment and Plan: partly related to ESRD EPO given today at 11:15 a.m. however, cannot discount GI loss low H/H on admission guaiac positive stools results of endoscopy here at [place] noted on last admission recent EGD/colonoscopy at [facility] a few weks -- unremarkable findings per patient Gastroenterology following s/p EGD on 11/27/22 - no active source of bleeding noted Check a CBC tomorrow (3) Hypertension: Qualifiers: Hypertension type: secondary to other renal disorders Qualified Code(s): I15.1 - Hypertension secondary to other renal disorders; N28.89 - Other specified disorders of kidney and ureter Code(s): I10 - Essential (primary) hypertension Status: Acute Assessment and Plan: fluctuating Blood pressure is quite high. It did not come down very much with removal of fluid. She is on hydralazine losartan nifedipine (dose just increased today). Will give an order for clonidine p.r.n. as well. (4) Generalized weakness: Code(s): R53.1 - Weakness Status: Acute Assessment and Plan: suspect due to anemia and recent repeat hospitalizations this has likely led to generalized deconditioning PT/OT as tolerated Subjective Date/time seen: 11/30/22 14:55 Interval history: Yasmin is feeling okay. She is somewhat sleepy. She is on dialysis and tolerating it well. They are going for 3L. She was seen at 1:00 p.m. No chest pain or shortness of breath Exam Narrative: General: mildly ill-appearing female in NAD Heart: normal S1 and S2; no rub or subcu nodules Lungs: clear to auscultation Abdomen: soft, nontender, nondistended, positive bowel sounds Extremities: no cyanosis or clubbing; no edema Skin: No rash Objective Data Vital Signs Vital Signs: Vital Signs - 24 hr 11/29/22 16:20 11/29/22 16:00 11/29/22 16:00 Temperature 97.0 F L Pulse Rate 65 70 Respiratory Rate 20 Blood Pressure 174/63 H Pulse Oximetry 97 98 Oxygen Delivery Room Air 11/29/22 18:00 11/29/22 20:00 11/29/22 20:00 Temperature 98.9 F Pulse Rate 76 71 Respiratory Rate 18 Blood Pressure 155/58 H Pulse Oximetry 98 Oxygen Delivery Room Air 11/29/22 23:07 11/29/22 20:00 11/29/22 22:00 Temperature 97.5 F L Pulse Rate 70 74 69 Respiratory Rate 20 Blood Pressure 161/68 H Pulse Oximetry 97 Oxygen Delivery 11/30/22 00:00 11/30/22 00:00 11/30/22 02:00 Temperature Pulse Rate 72 69 Respiratory Rate Blood Pressure Pulse Oximetry Oxygen Delivery Room Air 11/30/22 04:00 11/30/22 04:00 11/30/22 04:00 Temperature 98.4 F Pulse Rate 82 82 Respiratory Rate 20 Blood Pressure 193/66 H Pulse Oximetry 97 Oxygen Delivery Room Air 11/29/22 22:41 11/30/22 06:00 11/30/22 08:20 Temperature 96.0 F L Pulse Rate 84 72 Respiratory Rate 22 H Blood Pressure 179/71 H Pulse Oximetry 97 97 Oxygen Delivery Room Air 11/30/22 08:00 11/30/22 08:00 11/30/22 09:35 Temperature 97.8 F Pulse Rate 71 65 Respiratory Rate 16 Blood Pressure 198/83 H Pulse Oximetry 97 Oxygen Delivery Room Air 11/30/22 09:45 11/30/22 10:00 11/30/22 10:20 Temperature Pulse Rate 63 63 63 Respiratory Rate Blood Pressure 188/81 H 177/72 H 198/85 H Pulse Oximetry Oxygen Delivery 11/30/22 10:40 11/30/22 11:00 11/30/22 11:20 Temperature Pulse Rate 69 90 68 Respiratory Rate Blood Pressure 214/88 H 210/91 H 219/94 H Pulse Oximetry Oxygen Delivery 11/30/22 11:40 11/30/22 12:00 11/30/22
--- NOTE | 2022-11-30 17:05 | PC.NURSE ---
Reviewed pt discharge paperwork with patient. Pt verbalized understanding and all questions were answered. Peripheral IV access removed. Pt wheeled downstairs via staff.
== END 2022-11-30 16:50 | disposition home health service (06) | DRG 377 ==
LOC: ANHED 13:57 → ANHIMU 17:25
PROVIDERS: Family Medicine; Internal Medicine; Internal Medicine Gastroenterology; Internal Medicine Nephrology; Admitting Provider Hospitalist; Emergency Provider Emergency Medicine; PCP Family Medicine; Visit Provider Student in an Organized Health Care Education/Training Program
PROC: 0DJ08ZZ Inspection of Upper Intestinal Tract, Via Natural or Artificial Opening Endoscopic (ICD-10-PCS; CPT 43235; principal; 2022-11-27 15:00)
DX: K25.4 Chronic or unspecified gastric ulcer with hemorrhage (principal); N18.6 End stage renal disease; I12.0 Hypertensive chronic kidney disease with stage 5 chronic kidney disease or end stage renal disease; D63.1 Anemia in chronic kidney disease; D50.9 Iron deficiency anemia, unspecified; I48.0 Paroxysmal atrial fibrillation; I25.10 Atherosclerotic heart disease of native coronary artery without angina pectoris; K21.9 Gastro-esophageal reflux disease without esophagitis; K29.70 Gastritis, unspecified, without bleeding; K31.84 Gastroparesis; G24.01 Drug induced subacute dyskinesia; G62.9 Polyneuropathy, unspecified; G47.33 Obstructive sleep apnea (adult) (pediatric); F41.9 Anxiety disorder, unspecified; F31.9 Bipolar disorder, unspecified; Z79.01 Long term (current) use of anticoagulants; Z85.3 Personal history of malignant neoplasm of breast; Z99.2 Dependence on renal dialysis; Z87.891 Personal history of nicotine dependence
CPT/HCPCS: 36415; 36430; 80048; 80053; 80074; 82948; 83735; 84100; 85014; 85018; 85025; 85027; 86706; 86850; 86900; 86901; 86923; 87340; 93005; 96374; 97110; 97161; 97165; 97530; 97535; 99285; A9270; C9113; G0257; G0378; J1644; J2405; J2704; J2765; J7030; J7040; J7050; P9016; Q5105

== ENCOUNTER 2022-12-02 18:18 | Observation (INO) | payer OTHER, SELFPAY ==
--- NOTE | ~2022-12-02 | CT_ITS ---
EXAMINATION: CT brain wo con DATE: 12/02/2022 19:52 INDICATION: Fall. Head injury. TECHNIQUE: Computed tomography (CT) of the head was performed without intravenous contrast. The mA wa s adjusted according to patient size. Iterative reconstruction technique was employed. Exam dose: 60 5.33 mGy-cm total exam DLP. COMPARISON: 10/31/2022 CT brain FINDINGS: There is very prominent left and right vertebral and basilar artery calcification and bilat eral there are prominent calcification of the carotid siphon and supraclinoid internal carotid arteri es. There is nonspecific diminished attenuation of the cerebral white matter, likely due to chronic small vessel ischemic changes. Small chronic lacunar infarct of the left thalamus. There is greater than expected central and cortical cerebral as well as cerebellar atrophy for the pa servando's age of 67 years. No intracranial mass lesion or hemorrhage or cerebrovascular accident is noted. No midline shift or m ass effect. No subdural or epidural hematoma. No fracture or bone destruction of the cranial vault. The mastoid air cells and included paranasal sinuses are normally developed and aerated. IMPRESSION: Very prominent calcified cerebral atherosclerosis including bilateral vertebral arteries , basilar artery, carotid siphon and supraclinoid internal carotid arteries Nonspecific diminished attenuation cerebral white matter, likely due to chronic small vessel ischemic changes Small chronic lacunar infarct of left thalamus Greater than expected cerebral and cerebellar atrophy for chronological age Reviewed, dictated and finalized at [facility]. Reviewed, dictated and finalized at [facility]. IMPRESSION: Very prominent calcified cerebral atherosclerosis including bilate ral vertebral arteries, basilar artery, carotid siphon and supraclinoid interna l carotid arteries Nonspecific diminished attenuation cerebral white matter, likely due to chronic small vessel ischemic changes Small chronic lacunar infarct of left thalamus Greater than expected cerebral and cerebellar atrophy for chronological age
--- NOTE | ~2022-12-02 | CT_ITS ---
EXAMINATION: CT abdomen pelvis w con DATE: 12/02/2022 19:53 INDICATION: Right lower quadrant pain, tenderness. Fall. TECHNIQUE: Computed tomography (CT) of the abdomen and pelvis was performed with 100 CC Omnipaque 350 intravenous contrast. Automated exposure control and iterative reconstruction technique were employe d. Exam dose: 1011.38 mGy-cm total exam DLP. COMPARISON: 10/31/2022 CT abdomen pelvis FINDINGS: Bilateral lateral dependent lower lobe atelectasis and small pleural effusions, right great er than left. Cardiomegaly. No pericardial effusion. There is anasarca with edema of the chest, abdominal and pelvic solomon and proximal thighs. Status post cholecystectomy. No bile duct or pancreatic duct dilatation is noted. No hepatic, splenic, pancreatic or adrenal space-occupying mass lesion is detected. There are bilater al renal probable cysts. No urinary tract obstruction or hydronephrosis. The urinary bladder is unrem arkable. Status post hysterectomy. There is atherosclerotic calcification of the abdominal aorta. There are extensive calcifications of the renal arteries. No intraperitoneal or retroperitoneal or pelvic mass lesion or adenopathy or asci ten. There is thickening and enhancement of the gastric antrum, which may be due to inflammation or neopla sm. Upper endoscopy or upper gastrointestinal series is recommended for further evaluation. The appendix is not visualized. There are numerous diverticula of the colon; no CT evidence of divert iculitis. There is a prominent amount of fecal material within the colon. No bowel obstruction, bowel wall thickening, pneumatosis or intraperitoneal free air is detected. Moderately severe degenerative disc disease L4-5. Severe degenerative disc disease at L5-S1. Minimal grade 1 anterolisthesis at L5-S1. No suspicious osteolytic or osteoblastic lesions are noted. IMPRESSION: Anasarca Cardiomegaly There is some thickening and enhancement of the wall of the gastric antrum, which may be due to infla mmation or neoplasm. Consider upper endoscopy or upper gastrointestinal series for further evaluation Status post cholecystectomy Status post hysterectomy Status post probable appendectomy Diverticulosis of the colon; no CT evidence of diverticulitis Reviewed, dictated and finalized at [facility]. Reviewed, dictated and finalized at [facility]. IMPRESSION: Anasarca Cardiomegaly There is some thickening and enhancement of the wall of the gastric antrum, whi ch may be due to inflammation or neoplasm. Consider upper endoscopy or upper ga strointestinal series for further evaluation Status post cholecystectomy Status post hysterectomy Status post probable appendectomy Diverticulosis of the colon; no CT evidence of diverticulitis
--- NOTE | ~2022-12-02 | XR_ITS ---
XR chest 2V DATE: 12/02/2022 19:01 INDICATION: Generalized weakness TECHNIQUE: AP and lateral views COMPARISON: July 14, 2005 2 view chest FINDINGS: There is cardiomegaly. Coronary artery calcification. There is aortic calcification and unf olding. There is pulmonary vascular redistribution. There is mild prominence of the fissures suggesting subpl eural edema. There are some subtle Fidel B-lines consistent with pulmonary interstitial edema. Surgical clips overlie the right breast. Diffuse osteopenia. IMPRESSION: Mild congestive heart failure with subpleural and pulmonary interstitial edema Aortic atherosclerosis Reviewed, dictated and finalized at [facility]. IMPRESSION: Mild congestive heart failure with subpleural and pulmonary interst itial edema Aortic atherosclerosis
[2022-12-02 18:27] VITALS: BP 174/60; PULSE 51; RESP 17; TEMP 36.4; O2SAT 99
--- NOTE | 2022-12-02 18:50 | ECG_ITS ---
Measurements Intervals [place] Rate: 52 P: 53 HI: 233 QRS: -4 QRSD: 110 T: 52 QT: 484 QTc: 454 Interpretive Statements SINUS BRADYCARDIA WITH FIRST DEGREE AV BLOCK INTRAVENTRICULAR CONDUCTION DELAY MINIMAL Q WAVES- LAT/HIGH LAT LEADS BORDERLINE ST ABNORMALITY- LATERAL LEADS BASELINE WANDER- V1 BORDERLINE ECG COMPARED TO ECG 11/26/2022 12:59:04 NO SIGNIFICANT CHANGES Electronically Signed On 12-02-2022 19:59:12 CDT by Kade Cruz D.O.
[2022-12-02 19:02] LABS: Basophils Absolute Auto 0.1 K/mm3 (0.0-0.1); Basophils Percent Auto 0.9 % (0.2-1.2); Eosinophils Absolute Auto 0.5 K/mm3 (0-0.3); Eosinophils Percent Auto 6.8 % (0-4.4); Hematocrit 27.6 % (37.0-47.0); Hemoglobin 8.6 g/dL (12.0-15.0); Immature Granulocyte Absolute 0.05 K/mm3 (0.00-0.031); Immature Granulocyte Percent A 0.7 % (0-0.5); Lymphocytes Absolute Auto 1.08 K/mm3 (0.9-3.2); Lymphocytes Percent Auto 15.7 % (18.3-44.2); Mean Corpuscular HGB Conc 31.2 g/dl (32-36); Mean Corpuscular Hemoglobin 30.6 pg (26-34); Mean Corpuscular Volume 98.2 fl (80-100); Mean Platelet Volume 10.2 fl (7.4-10.4); Monocytes Absolute Auto 0.6 K/mm3 (0.1-0.6); Monocytes Percent Auto 9.3 % (2.6-8.5); Neutrophils Absolute Auto 4.6 K/mm3 (1.3-6.7); Neutrophils Percent Auto 66.6 % (45.5-73.1); Platelet Count Result 164 k/mm3 (150-375); Red Blood Count 2.81 M/mm3 (4.2-5.4); Red Cell Distribution Width 14.6 % (11.5-14.5); White Blood Count 6.9 K/mm3 (4.5-10.0)
--- NOTE | 2022-12-02 19:11 | ED.WEAKNESS ---
HPI - Weakness General Chief complaint: Weakness Stated complaint: weak/anemia/gi bleed Time Seen by Provider: 12/02/22 18:35 History of Present Illness HPI Narrative: Patient is a 67-year-old female with a history of ESRD on dialysis Friday, recent GI bleed, hyperlipidemia, hypertension presenting with generalized weakness. Patient states that she just left the hospital couple of days ago after coming in for low hemoglobin. States that she had dialysis on Friday. States that today she has been increasingly weak. States that her legs and her arms feel too weak to walk or move. She complains of abdominal pain. No chest pain or shortness of breath. No vomiting or diarrhea. Related Data Home Medications Medication Instructions Recorded Confirmed allopurinol 100 mg tablet 100 mg PO DAILY 11/01/22 12/02/22 alprazolam 0.5 mg tablet 0.5 mg PO QID PRN Anxiety 11/01/22 12/02/22 amantadine HCl 100 mg capsule 100 mg PO DAILY 11/01/22 12/02/22 apixaban 5 mg tablet (Eliquis) 5 mg PO BID 11/01/22 12/02/22 atorvastatin 40 mg tablet 40 mg PO HS 11/01/22 12/02/22 clonidine HCl 0.1 mg tablet 0.2 mg PO TID 11/01/22 12/02/22 docusate sodium 250 mg capsule 250 mg PO DAILY 11/01/22 12/02/22 ferric citrate 210 mg iron tablet 2 tablet PO BIDWM 11/01/22 12/02/22 (Auryxia) ferric citrate 210 mg iron tablet 3 tablet PO TIDWM 11/01/22 12/02/22 (Auryxia) fluticasone propionate 50 1 spray intranasal DAILY 11/01/22 12/02/22 mcg/actuation nasal spray,suspension folic acid 400 mcg tablet 0.4 mg PO DAILY 11/01/22 12/02/22 furosemide 80 mg tablet 80 mg PO 4XW 11/01/22 12/02/22 gentamicin 0.1 % topical cream 1 applic topical DAILY 11/01/22 12/02/22 hydralazine 100 mg tablet 100 mg PO TID 11/01/22 12/02/22 hydrocodone 10 mg-acetaminophen 1 tablet PO Q6H PRN Pain (Scale 11/01/22 12/02/22 325 mg tablet Score 7-10) lamotrigine 150 mg tablet 150 mg PO Q12H 11/01/22 12/02/22 levetiracetam 750 mg tablet 750 mg PO BID 11/01/22 12/02/22 losartan 50 mg tablet 50 mg PO DAILY 11/01/22 12/02/22 montelukast 10 mg tablet 10 mg PO 1700 11/01/22 12/02/22 nifedipine 30 mg tablet,extended 30 mg PO DAILY 11/01/22 12/02/22 release 24 hr pregabalin 50 mg capsule 50 mg PO BID 11/01/22 12/02/22 ropinirole 0.5 mg tablet 0.5 mg PO BID 11/01/22 12/02/22 ropinirole 0.5 mg tablet 1.5 mg PO HS 11/01/22 12/02/22 tizanidine 4 mg tablet 4 mg PO BID PRN Muscle Spasm 11/01/22 12/02/22 vortioxetine 10 mg tablet 10 mg PO DAILY 11/01/22 12/02/22 (Trintellix) Allergies Allergy/AdvReac Type Severity Reaction Status Date / Time adhesive tape Allergy Rash Verified 11/27/22 13:16 NSAIDS (Non-Steroidal Allergy Other Verified 11/26/22 12:53 Anti-Inflamma pickles AdvReac Swelling Uncoded 11/26/22 18:14 of Lip/Tongue/Throat Review of Systems Review of Systems: All systems reviewed & are unremarkable except as noted in HPI and below PMFSH Past Medical History Medical History Anxiety and depression Bipolar depression Breast cancer Constipation Coronary artery disease End stage renal disease On hemodialysis with peritoneal dialysis catheter in place Esophageal ulcer Gastric mass Benign hyperplastic foveolar mucosa partially obstructing pylorus Gastric ulcer Gastroparesis Hypertension Iron deficiency anemia Neuropathy Obstructive sleep apnea Patient has a history of severe obstructive sleep apnea diagnosed in 2005 with recommended CPAP of 18 Paroxysmal A-fib Tardive dyskinesia Surgical History Surgical History 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 History of facial surgery Left orbit reconstruction due to trauma 1977 History of foot howard
[2022-12-02 19:13] LABS: Alanine Aminotransferase 15 U/L (6-35); Albumin Level 3.5 g/dL (3.5-5.1); Alkaline Phosphatase 146 U/L (38-126); Anion Gap 10 mmol/L (8-16); Aspartate Amino Transferase 20 U/L (14-36); Bilirubin,Total 0.3 mg/dL (0.2-1.3); Blood Urea Nitrogen 47 mg/dL (7-17); Calcium 9.9 mg/dL (8.4-10.2); Carbon Dioxide 24 mmol/L (22-30); Chloride 103 mmol/L (98-107); Estimated Glomerular Filt Rate 7; Glucose 157 mg/dL (65-110); Potassium 4.8 mmol/L (3.4-5.0); Sodium 137 mmol/L (137-145)
[2022-12-02 19:56] LABS: Lipase 153 U/L (23-300); Magnesium 2.8 mg/dL (1.6-2.3)
[2022-12-02 20:01] LABS: INR 1.1; Prothrombin Time 14.2 Seconds (11.1-14.7)
[2022-12-02 20:02] VITALS: BP 190/88; PULSE 54; RESP 18; O2SAT 100
[2022-12-02 20:12] LABS: Troponin I 0.052 ng/mL (0.000-0.034)
[2022-12-02 20:36] LABS: Lactic Acid Reflex 0.9 mmol/L (0.7-2.0)
[2022-12-02 20:38] LABS: Influenza A QL RT-PCR Negative (Negative); Influenza B QL RT-PCR Negative (Negative); SARS-CoV-2 RNA PCR Negative (Negative)
[2022-12-02 21:15] VITALS: BP 202/80; PULSE 59; RESP 23; O2SAT 98
[2022-12-02 22:21] VITALS: BP 189/72; PULSE 64; RESP 18; O2SAT 97
--- NOTE | 2022-12-02 22:33 | PM.IMHP ---
H&P: HPI History of Present Illness Date/Time: 12/02/22 22:33 Chief Complaint: Generalized weakness, deconditioning, anemia Narrative: Patient is a 67-year-old female with a history of ESRD on dialysis Friday, recent GI bleed, hyperlipidemia, hypertension presenting with generalized weakness.? The patient was recently discharged from the hospital on November 30 after being admitted for an acute GI bleeding which was treated with blood transfusion. She was diagnosed with gastric ulcer. She is on chronic renal replacement therapy with hemodialysis; her last dialysis session was on Friday.? States that today she has been increasingly weak.? States that her legs and her arms feel too weak to walk or move.? She complains of abdominal pain.? No chest pain or shortness of breath.? No vomiting or diarrhea. 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 Review of Systems Review of Systems: CONSTITUTIONAL: Negative for any fevers, chills, night sweats. Positive for tiredness, fatigue, malaise. There is no anorexia or weight loss. CARDIOVASCULAR: Negative for chest pain, palpitations, dizziness, orthopnea or lower extremity edema. RESPIRATORY: Negative for shortness of breath, cough, wheezing, sputum. GASTROINTESTINAL: Negative for nausea vomiting diarrhea or abdominal pain. GENITOURINARY: Negative for frequency, nocturia, dysuria, hematuria. GYNECOLOGIC: Negative for abnormal bleeding. HEMATOLOGIC: Negative for any abnormal bleeding or bruising. MUSCULOSKELETAL: Negative for joint swelling, stiffness or pain. SKIN: Negative for rashes, eruptions, lesions or dryness. NEUROLOGIC: Negative for any focal neurologic complaints. PSYCHIATRIC: Negative for anxiety, panic, depression. [facility] Past Medical History Medical History Anxiety and depression Bipolar depression Breast cancer Constipation Coronary artery disease End stage renal disease On hemodialysis with peritoneal dialysis catheter in place Esophageal ulcer Gastric mass Benign hyperplastic foveolar mucosa partially obstructing pylorus Gastric ulcer Gastroparesis Hypertension Iron deficiency anemia Neuropathy Obstructive sleep apnea Patient has a history of severe obstructive sleep apnea diagnosed in 2005 with recommended CPAP of 18 Paroxysmal A-fib Tardive dyskinesia Surgical History Surgical History 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 History of facial surgery Left orbit reconstruction due to trauma 1977 History of foot surgery Plantar fasciitis History of tubal ligation Hx of cholecystectomy (~1991) Peritoneal dialysis catheter in place Revised 10/31/[address] Pozo. The dialysis catheter had been [facility] and [facility]. It was subsequently removed in mid October. S/P appendectomy (10/31/22) Dilated appendix, extensive adhesion lysis of adhesions around peritoneal dialysis catheter Status post cataract extraction of both eyes with insertion of intraocular lens Family History Family History Daughter Precancerous changes of the cervix Pancreatitis Daughter Colon cancer Precancerous changes of the cervix Unknown Diabetes mellitus Father Heart attack Sibling Pancreatitis Adry's disease Social History Social History Social History: She lives with her of approximately 15 years. She has 4 children. She smoked about half a pack of cigarettes per day for about 14 years but quit smoking approximately 40 years ago. She denies any history of excessive alcohol use or
--- NOTE | 2022-12-02 22:39 | ADMGEN ---
This patient, Yasmin Colbert, was admitted to Medical Room 260-. Patient/family oriented to hospital policies and general routines including ID bracelet, bed and alarms, visiting hours, pain management, procedures, bathroom and other care routines, personal items, smoking policy, room service/diet, and visiting hours. Information on how to activate the Rapid Response Team has been discussed. Patient/Family are encouraged to report perceived risks to care and to ask questions if they do not understand what they are told or what they should do.
[2022-12-02 22:41] VITALS: BP 192/68; PULSE 58; RESP 17; TEMP 36.1; O2SAT 98
[2022-12-02 22:42] VITALS: BMI 24.2
[2022-12-02 23:13] LABS: Troponin I 0.054 ng/mL (0.000-0.034)
[2022-12-03] VITALS (24 sets, daily range): BP systolic 169–207; BP diastolic 45–101; PULSE 57–73; RESP 16–18; TEMP 36–37.1; O2SAT 95–98; BMI 24.2
[2022-12-03 01:38] LABS: Troponin I 0.054 ng/mL (0.000-0.034)
[2022-12-03] MEDS: SUCRALFATE SUSP 100 MG/ML 10 ML UDC 1000 MG PO ×3 (06:31→20:17)
[2022-12-03 06:58] LABS: Hepatitis B Surface Antigen Negative (Negative)
[2022-12-03 07:20] LABS: Hepatitis B Surface Anti Res Positive
--- NOTE | 2022-12-03 08:58 | PCPTNOTE ---
Attempted to do evaluation, but patient in HD in AM
--- NOTE | 2022-12-03 09:13 | PCOTNOTE ---
Attempted OT evaluation at 9:12, patient off of unit getting dialysis this AM.
--- NOTE | 2022-12-03 10:15 | PM.CNNEP ---
Assessment and Plan Assessment and plan (1) End stage renal disease: Code(s): N18.6 - End stage renal disease Status: Chronic Assessment and Plan: HD today continue outpatient schedule of T/T/S follow electrolytes, volume status, and clearance (2) Anemia: Code(s): D64.9 - Anemia, unspecified Status: Acute Assessment and Plan: partly related to ESRD Epogen with HD follow trend on H/H (3) Hypertension: Qualifiers: Hypertension type: secondary to other renal disorders Qualified Code(s): I15.1 - Hypertension secondary to other renal disorders; N28.89 - Other specified disorders of kidney and ureter Code(s): I10 - Essential (primary) hypertension Status: Acute Assessment and Plan: quite elevated resumed on home medications dialysis and fluid removal should help follow trend of hemodynamics (4) Generalized weakness: Code(s): R53.1 - Weakness Status: Acute Assessment and Plan: suspect due to previous anemia and recent repeat hospital hospitalization this has likely led to generalized deconditioning PT/OT as tolerated may need placement I will continue follow the patient with you while she remains hospitalized and make further recommendations during hospital course. Thank you for allowing me to participate in care with patient. History of Present Illness Reason for Consult Consult date: 12/03/22 Reason for consult: end stage renal disease Chief Complaint Chief complaint: failure to thrive History of Present Illness Narrative: The patient is a 67-year-old female with a past medical history as outlined below who presented to [facility] Emergency room with complaints of generalized weakness. The patient was just recently discharged from [facility] for similar complaints that were thought to be secondary to anemia and suspected GI bleed. During that last hospitalization, she received a packed red blood cell transfusion and monitoring of her hemoglobin hematocrit. As she did recently had an EGD/ colonoscopy and other hospital a few weeks ago as well as an EGD on her last hospitalization here at [facility], these interventions were not repeated as her hemoglobin/hematocrit remains stable following her blood transfusion. Following her recent discharge, she had been doing reasonably well when she reports that she was shopping and while in the dressing room trying on different clothes, she apparently Fell and sustained a fall. She reports that her legs gave out without any warning. Following the fall, she reports that her legs in arms are so weak that she is unable to walk or ambulate without any assistance or help. She subsequently presented to [facility] Emergency room for further assessment. Workup and evaluation emergency room demonstrated the patient be hemodynamically stable (if not quite hypertensive ) on presentation. Routine blood test demonstrated labs consistent with her known history of end-stage renal disease and relative stability in her hemoglobin and hematocrit in comparison 10 when she was last here. Subsequent imaging including a CT scan of the abdomen pelvis demonstrated findings concerning for overt anasarca but no other acute intra-abdominal pathology. It was felt the patient may need a snf facility or possible fci placement for aggressive physical and occupational therapy given her overall deconditioned state. She was subsequent admitted to the hospital for further evaluation and therapy. Renal consultation was requested due to her end-stage renal disease. The patient currently does hemodialysis at [facility] under the care of Dr. Charles Bloom. She receives dialysis on a Friday, , Friday schedule with her last treatment on Friday. She is due for dialysis today although her electrolytes and acid base status are relatively st
[2022-12-03] MEDS: EPOETIN ALFA-EPBX 10,000 UNITS/ML VIAL 10000 UNITS IV PUSH (10:54)
[2022-12-03] MEDS: SODIUM CHLORIDE 0.9% IV 1,000 ML 999 ML IV CONT (10:54)
--- NOTE | 2022-12-03 14:24 | PM.IMPN ---
Progress Note: A&P Assessment and Plan (1) Generalized weakness: Code(s): R53.1 - Weakness Status: Acute Assessment and Plan: This is likely secondary to deconditioning. Labs stable PT and OT evaluation Consideration for rehabilitation placement. Does look volume overloaded on presentation with findings of anasarca and pleural effusions (2) Memory loss: Code(s): R41.3 - Other amnesia Status: Acute Assessment and Plan: Send workup for mild cognitive impairment, early dementia. Send B12, TSH, RPR. 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 She is also experiencing recurrent anemia. She will follow-up as an outpatient with Cardiology in consideration for a Watchman procedure. Rosetta has been on hold to resume on 12/06/2022 (4) GI bleed: Qualifiers: GI bleed type/associated pathology: melena Qualified Code(s): K92.1 - Melena Code(s): K92.2 - Gastrointestinal hemorrhage, unspecified Status: Acute Assessment and Plan: Patient had EGD and colonoscopy at an outside hospital a couple weeks ago and those studies were reported to be unremarkable. Hemoglobin during last admission went down to 6.6. Patient has been on pantoprazole for the past few weeks. H&H is stable today (5) Symptomatic anemia: Code(s): D64.9 - Anemia, unspecified Status: Acute Assessment and Plan: Need a hemoglobin during last admission was 6.6. On admission hemoglobin is 8.6. Check iron panel. Cause T new erythropoietin supplementation. (6) Iron deficiency anemia: Qualifiers: Iron deficiency anemia type: chronic blood loss Qualified Code(s): D50.0 - Iron deficiency anemia secondary to blood loss (chronic) Code(s): D50.9 - Iron deficiency anemia, unspecified Status: Acute Assessment and Plan: Check count panel. (7) ESRD (end stage renal disease) on dialysis: Code(s): N18.6 - End stage renal disease; Z99.2 - Dependence on renal dialysis Status: Chronic Assessment and Plan: Patient is on dialysis with the Friday and Friday schedule. Nephrology has been consulted for hemodialysis. 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 The patient reports several financial stressors. Plan DVT prophylaxis. SCDs Subjective Date/time seen: 12/03/22 14:24 Interval history: Seen during the dialysis. History reviewed. Got weak yesterday. No fever chills. H&H remains stable Review of Systems Review of Systems: All systems reviewed & are unremarkable except as noted in HPI and below Exam Narrative: GENERAL: The patient is alert and oriented, in no apparent distress. She is generally weak. HEENT: Pupils are equally round and briskly reactive to light. Extraocular muscles are intact. Oral mucous membranes are moist without lesions. NECK: The patient has no noted JVD. No adenopathy is appreciated. CHEST/LUNGS: Lungs are clear bilaterally without rhonchi, rales, or wheezes. There is no subcutaneous air appreciated. There is no tenderness to the chest wall. HEART: The patient has a regular rate and rhythm. No murmurs, rubs, or gallops are appreciated. Distal pulses are 2+. No carotid bruits appreciated. ABDOMEN: The patient?s abdomen is soft, nontender, and nondistended. Bowel sounds are positive. No organomegaly is appreciated. No masses are appreciated. There are no peritoneal signs. There is no Turner?s sign. EXTREMITIES: The patient has no peripheral edema. There is no focal long bone tenderness or deformity. SKIN: The patient?s skin is warm and dry, without rashes or lesions. PSYCHIATR
[2022-12-03] MEDS: DOCUSATE SODIUM 100 MG CAPSULE 200 MG PO (14:40)
[2022-12-03] MEDS: PANTOPRAZOLE 40 MG TABLET PO ×2 (14:40→20:17)
[2022-12-03] MEDS: NIFEdipine 30 MG TAB.ER.24 PO (14:40)
[2022-12-03] MEDS: allopurinoL 100 MG TABLET PO (14:41)
[2022-12-03] MEDS: AMANTADINE HCL 100 MG CAPSULE PO (14:41)
[2022-12-03] MEDS: cloNIDine HCL 0.2 MG TABLET PO ×2 (14:41→18:40)
[2022-12-03] MEDS: FOLIC ACID 0.4 MG TABLET PO (14:41)
[2022-12-03] MEDS: hydrALAZINE HCL 50 MG TABLET 100 MG PO ×2 (14:42→18:39)
[2022-12-03] MEDS: lamoTRIgine 50 MG TABLET 150 MG PO ×2 (14:42→20:15)
[2022-12-03] MEDS: LOSARTAN POTASSIUM 50 MG TABLET PO (14:43)
--- NOTE | 2022-12-03 17:57 | PHAR ---
PT'S HOME MEDS AURYXIA 210 MG TABS AND TRINTELLIX 10 MG TABS VERIFIED BY PHARMACY
[2022-12-03] MEDS: PREGABALIN (*CRX) 50 MG CAPSULE PO (18:39)
[2022-12-03] MEDS: levETIRAcetam 250 MG TABLET 750 MG PO (18:40)
[2022-12-03] MEDS: rOPINIRole HCL 0.5 MG TABLET PO (18:42)
[2022-12-03] MEDS: polyethylene glycoL 3350 17 GM POWD.PACK PO (18:43)
[2022-12-03] MEDS: MONTELUKAST SODIUM 10 MG TABLET PO (20:15)
[2022-12-03] MEDS: ATORVASTATIN 40 MG TABLET PO (20:15)
[2022-12-03] MEDS: rOPINIRole HCL 0.5 MG TABLET 1.5 MG PO (20:17)
[2022-12-03 21:40] LABS: Glucose Point of Care 243 mg/dl (65-105)
[2022-12-04] VITALS: PULSE 61
[2022-12-04] MEDS: HYDROcodone/acetaminophen (*CRX) 10-325 MG TABLET 1 TAB PO ×2 (02:00→13:12)
[2022-12-04 04:00] VITALS: PULSE 59
[2022-12-04 05:06] LABS: Basophils Absolute Auto 0.1 K/mm3 (0.0-0.1); Basophils Percent Auto 0.9 % (0.2-1.2); Eosinophils Absolute Auto 0.4 K/mm3 (0-0.3); Eosinophils Percent Auto 6.2 % (0-4.4); Hematocrit 25.5 % (37.0-47.0); Hemoglobin 7.9 g/dL (12.0-15.0); Immature Granulocyte Absolute 0.03 K/mm3 (0.00-0.031); Immature Granulocyte Percent A 0.5 % (0-0.5); Lymphocytes Absolute Auto 1.38 K/mm3 (0.9-3.2); Lymphocytes Percent Auto 20.8 % (18.3-44.2); Mean Corpuscular Hemoglobin 29.9 pg (26-34); Mean Corpuscular Volume 96.6 fl (80-100); Mean Platelet Volume 9.5 fl (7.4-10.4); Monocytes Absolute Auto 0.9 K/mm3 (0.1-0.6); Neutrophils Absolute Auto 3.9 K/mm3 (1.3-6.7); Neutrophils Percent Auto 58.6 % (45.5-73.1); Platelet Count Result 148 k/mm3 (150-375); Red Blood Count 2.64 M/mm3 (4.2-5.4); Red Cell Distribution Width 14.4 % (11.5-14.5); White Blood Count 6.6 K/mm3 (4.5-10.0)
[2022-12-04 05:26] LABS: Alanine Aminotransferase 14 U/L (6-35); Alkaline Phosphatase 146 U/L (38-126); Anion Gap 4 mmol/L (8-16); Aspartate Amino Transferase 19 U/L (14-36); Bilirubin,Total 0.3 mg/dL (0.2-1.3); Blood Urea Nitrogen 29 mg/dL (7-17); Calcium 8.9 mg/dL (8.4-10.2); Carbon Dioxide 31 mmol/L (22-30); Chloride 102 mmol/L (98-107); Estimated CRCL calculation 13 ml/min; Estimated Glomerular Filt Rate 11; Glucose 145 mg/dL (65-110); Magnesium 2.5 mg/dL (1.6-2.3); Potassium 4.1 mmol/L (3.4-5.0); Sodium 137 mmol/L (137-145)
[2022-12-04 05:38] VITALS: BP 153/67; PULSE 62; RESP 16; TEMP 36.6; O2SAT 100
[2022-12-04] MEDS: SUCRALFATE SUSP 100 MG/ML 10 ML UDC 1000 MG PO ×2 (06:28→12:33)
--- NOTE | 2022-12-04 07:51 | PM.IMPN ---
Progress Note: A&P Assessment and Plan (1) Generalized weakness: Code(s): R53.1 - Weakness Status: Acute Assessment and Plan: This is likely secondary to deconditioning. Labs stable PT and OT evaluation Per notes, patient had volume overloaded on presentation with findings of anasarca and pleural effusions Current patient's euvolemia, still has general weakness Patient is considering to accept rehabilitation placement. (2) Memory loss: Code(s): R41.3 - Other amnesia Status: Acute Assessment and Plan: mild cognitive impairment, early dementia. Mental status on the baseline, further workup per primary care doctor (3) Chronic anticoagulation: Code(s): Z79.01 - care home (current) use of anticoagulants Status: Acute Assessment and Plan: Patient is on chronic anticoagulation for atrial fibrillation. She is also experiencing recurrent anemia. She will follow-up as an outpatient with Cardiology in consideration for a Watchman procedure. Rosetta has been on hold to resume at [facility] (4) GI bleed: Qualifiers: GI bleed type/associated pathology: melena Qualified Code(s): K92.1 - Melena Code(s): K92.2 - Gastrointestinal hemorrhage, unspecified Status: Acute Assessment and Plan: Patient had EGD and colonoscopy at an outside hospital a couple weeks ago and those studies were reported to be unremarkable. Hemoglobin during last admission went down to 6.6. Patient has been on pantoprazole for the past few weeks. H&H is stable today (5) Symptomatic anemia: Code(s): D64.9 - Anemia, unspecified Status: Acute Assessment and Plan: Need a hemoglobin during last admission was 6.6. On admission hemoglobin is 8.6. iron and erythropoietin supplementation per client technical support associate. (6) Iron deficiency anemia: Qualifiers: Iron deficiency anemia type: chronic blood loss Qualified Code(s): D50.0 - Iron deficiency anemia secondary to blood loss (chronic) Code(s): D50.9 - Iron deficiency anemia, unspecified Status: Acute Assessment and Plan: Check count panel. (7) ESRD (end stage renal disease) on dialysis: Code(s): N18.6 - End stage renal disease; Z99.2 - Dependence on renal dialysis Status: Chronic Assessment and Plan: Patient is on dialysis with the Friday and Friday schedule. Nephrology has been consulted for hemodialysis. 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 The patient reports several financial stressors. Plan DVT prophylaxis. SCDs Subjective Date/time seen: 12/04/22 07:51 Interval history: I saw and examined patient today, patient still feels generally weak, denies chest pain, shortness breast, abdomen pain, nausea vomiting diarrhea dysuria. No new events or issues over the night, patient is afebrile, hemodynamically stable Review of Systems Review of Systems: CONSTITUTIONAL: Negative for any fevers, chills, night sweats. Positive for tiredness, fatigue, malaise. There is no anorexia or weight loss. CARDIOVASCULAR: Negative for chest pain, palpitations, dizziness, orthopnea or lower extremity edema. RESPIRATORY: Negative for shortness of breath, cough, wheezing, sputum. GASTROINTESTINAL: Negative for nausea vomiting diarrhea or abdominal pain. GENITOURINARY: Negative for frequency, nocturia, dysuria, hematuria. GYNECOLOGIC: Negative for abnormal bleeding. HEMATOLOGIC: Negative for any abnormal bleeding or bruising. MUSCULOSKELETAL: Negative for joint swelling, stiffness or pain. SKIN: Negative for rashes, eruptions, lesions or dryness. NEUROLOGIC: Negative for any focal neurologic complaints. PSYCHIATRIC: Negative for anxiety, panic, depression. All systems reviewed & are unremar
[2022-12-04 08:00] VITALS: PULSE 62
[2022-12-04 09:01] VITALS: BP 195/59; PULSE 56
[2022-12-04] MEDS: DOCUSATE SODIUM 100 MG CAPSULE 200 MG PO (09:22)
[2022-12-04] MEDS: allopurinoL 100 MG TABLET PO (09:22)
[2022-12-04] MEDS: levETIRAcetam 250 MG TABLET 750 MG PO (09:23)
[2022-12-04] MEDS: AMANTADINE HCL 100 MG CAPSULE PO (09:23)
[2022-12-04] MEDS: lamoTRIgine 50 MG TABLET 150 MG PO (09:24)
[2022-12-04] MEDS: hydrALAZINE HCL 50 MG TABLET 100 MG PO (09:25)
[2022-12-04] MEDS: PANTOPRAZOLE 40 MG TABLET PO (09:26)
[2022-12-04] MEDS: FOLIC ACID 0.4 MG TABLET PO (09:26)
[2022-12-04] MEDS: rOPINIRole HCL 0.5 MG TABLET PO (09:27)
[2022-12-04] MEDS: FUROSEMIDE 80 MG TABLET PO (09:27)
[2022-12-04] MEDS: PREGABALIN (*CRX) 50 MG CAPSULE PO (09:31)
[2022-12-04] MEDS: polyethylene glycoL 3350 17 GM POWD.PACK PO (09:35)
[2022-12-04] MEDS: FLUTICASONE PROPIONATE 0.05% NA SPR 16 GM BTL (*BKC) 1 SPRAY NASAL (09:36)
[2022-12-04] MEDS: GENTAMICIN SULFATE 0.1% CR 15 GM TUBE 1 APPLIC TOPICAL (09:45)
--- NOTE | 2022-12-04 10:13 | PM.DS ---
DS: Admitting Diagnosis Discharge Date today Admitting Diagnosis General weakness, Anemia, End-stage renal disease on dialysis, DS: Discharge Diagnosis Discharge Diagnosis (1) Generalized weakness: Code(s): R53.1 - Weakness Status: Acute Assessment and Plan: This is likely secondary to deconditioning. Labs stable PT and OT evaluation Per notes, patient had volume overloaded on presentation with findings of anasarca and pleural effusions Current patient's euvolemia, still has general weakness Patient is considering to accept rehabilitation placement. (2) Memory loss: Code(s): R41.3 - Other amnesia Status: Acute Assessment and Plan: mild cognitive impairment, early dementia. 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 She is also experiencing recurrent anemia. She will follow-up as an outpatient with Cardiology in consideration for a Watchman procedure. Rosetta has been on hold to resume at [facility] (4) GI bleed: Qualifiers: GI bleed type/associated pathology: melena Qualified Code(s): K92.1 - Melena Code(s): K92.2 - Gastrointestinal hemorrhage, unspecified Status: Acute Assessment and Plan: Patient had EGD and colonoscopy at an outside hospital a couple weeks ago and those studies were reported to be unremarkable. Hemoglobin during last admission went down to 6.6. Patient has been on pantoprazole for the past few weeks. H&H is stable today (5) Symptomatic anemia: Code(s): D64.9 - Anemia, unspecified Status: Acute Assessment and Plan: Need a hemoglobin during last admission was 6.6. On admission hemoglobin is 8.6. iron and erythropoietin supplementation per tellers supervisor. (6) Iron deficiency anemia: Qualifiers: Iron deficiency anemia type: chronic blood loss Qualified Code(s): D50.0 - Iron deficiency anemia secondary to blood loss (chronic) Code(s): D50.9 - Iron deficiency anemia, unspecified Status: Acute Assessment and Plan: Check count panel. (7) ESRD (end stage renal disease) on dialysis: Code(s): N18.6 - End stage renal disease; Z99.2 - Dependence on renal dialysis Status: Chronic Assessment and Plan: Patient is on dialysis with the Friday and Friday schedule. Nephrology has been consulted for hemodialysis. 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 The patient reports several financial stressors. Plan DVT prophylaxis. SCDs DS: Summary Hospital Course Reason for hospitalization: General weakness Hospital Course: Patient is a 67-year-old female with a history of ESRD on dialysis Friday, recent GI bleed, hyperlipidemia, hypertension presenting with generalized weakness.? The patient was recently discharged from the hospital on November 30 after being admitted for an acute GI bleeding which was treated with blood transfusion.? She was diagnosed with gastric ulcer.? She is on chronic renal replacement therapy with hemodialysis; her last dialysis session was on Friday.? States that today she has been increasingly weak.? States that her legs and her arms feel too weak to walk or move.? She complains of abdominal pain.? No chest pain or shortness of breath.? No vomiting or diarrhea.? 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 Patient hospital course uneventful, try the radius likely resulting from fluid overload and multiple comorbidities, profound anemia, dementia. During hospitalization, patient
--- NOTE | 2022-12-04 12:15 | PCPTNOTE ---
On 12/04/22, the student, [Lucy Mcguire], provided care and completed [facility] documentation on this patient. I have reviewed the student's documentation and agree with the findings.
== END 2022-12-04 14:00 | disposition home health service (06) ==
LOC: ANHED 18:37 → ANH2MED 22:22
PROVIDERS: Internal Medicine; Internal Medicine Nephrology; Admitting Provider Internal Medicine; Emergency Provider Emergency Medicine; PCP Family Medicine; Visit Provider Hospitalist
DX: R53.1 Weakness (principal); R41.3 Other amnesia; K92.1 Melena; R00.1 Bradycardia, unspecified; I63.9 Cerebral infarction, unspecified; I13.0 Hypertensive heart and chronic kidney disease with heart failure and stage 1 through stage 4 chronic kidney disease, or unspecified chronic kidney disease; N18.2 Chronic kidney disease, stage 2 (mild); I50.9 Heart failure, unspecified; D63.1 Anemia in chronic kidney disease; Z99.2 Dependence on renal dialysis; Z20.822 Contact with and (suspected) exposure to COVID-19; E78.5 Hyperlipidemia, unspecified; I44.0 Atrioventricular block, first degree; I25.10 Atherosclerotic heart disease of native coronary artery without angina pectoris; I70.0 Atherosclerosis of aorta; I15.1 Hypertension secondary to other renal disorders; N28.89 Other specified disorders of kidney and ureter; D50.9 Iron deficiency anemia, unspecified; J84.9 Interstitial pulmonary disease, unspecified; F41.9 Anxiety disorder, unspecified; F31.9 Bipolar disorder, unspecified; G47.33 Obstructive sleep apnea (adult) (pediatric); Z99.89 Dependence on other enabling machines and devices; G24.01 Drug induced subacute dyskinesia; G62.9 Polyneuropathy, unspecified; I63.89 Other cerebral infarction; I45.4 Nonspecific intraventricular block; I48.0 Paroxysmal atrial fibrillation; Z90.49 Acquired absence of other specified parts of digestive tract; Z90.710 Acquired absence of both cervix and uterus; K57.90 Diverticulosis of intestine, part unspecified, without perforation or abscess without bleeding; Z87.891 Personal history of nicotine dependence; Z79.01 Long term (current) use of anticoagulants; Z79.51 Long term (current) use of inhaled steroids; Z79.891 Long term (current) use of opiate analgesic; Z79.899 Other long term (current) drug therapy
CPT/HCPCS: 36415; 70450; 71046; 74177; 80053; 82948; 83605; 83690; 83735; 84484; 85025; 85610; 85730; 86706; 87340; 87636; 93005; 96374; 97161; 97165; 99285; A9270; G0257; G0378; J1644; J7030; Q5105; Q9967

== ENCOUNTER 2023-03-22 13:29 | Emergency (ER) | payer OTHER, SELFPAY ==
[2023-03-22] VITALS (25 sets, daily range): BP systolic 145–189; BP diastolic 56–69; PULSE 58–70; RESP 12–20; TEMP 37; O2SAT 92–100
--- NOTE | ~2023-03-22 | CT_ITS ---
EXAMINATION: CT abdomen pelvis wo con DATE: 03/22/2023 14:35 INDICATION: abdominal pain TECHNIQUE: Computed tomography (CT) of the abdomen and pelvis was performed without intravenous contr ast. Automated exposure control and iterative reconstruction technique were employed. The dose-length product was 912.86 mGy-cm. COMPARISON: 12/02/2022. FINDINGS: Lower thorax: Mitral and coronary artery calcification. Mild cardiomegaly. Bibasilar scar/atelectasis . Liver: Normal. Biliary/Gallbladder: Gallbladder is absent. Mild intra and extra hepatic bile duct dilation, likely s econdary to cholecystectomy. Pancreas: No mass or duct dilation. Spleen: Normal. Adrenals:No mass. Kidneys: No suspicious mass, obstructing stone, or hydronephrosis. Bilateral atrophy. Simple right mi dpole and inferior pole cysts. Bilateral calcifications, likely vascular. GI tract: Likely persistent thickening of the gastric antrum. Mild colonic wall edema from the transv erse colon to the rectum. No small or large bowel dilation. Appendix not confidently visualized. Dive rticulosis without diverticulitis. Mesentery/Peritoneum: No ascites, mass, or free air. Retroperitoneum: No mass. Atherosclerotic abdominal aortic and/or arterial calcifications. Pelvis: Pelvic organs are within normal limits. Absent uterus. Soft Tissues: Mild body wall edema. Lower abdominal hernia mesh with subjacent fluid collection, unch anged. Bones: No acute osseous finding. IMPRESSION: Persistent antral wall thickening. Prior recommendation for endoscopy or upper GI series is unchanged . Mild colonic wall edema may reflect a component of colitis. Reviewed, dictated and finalized at location K. IMPRESSION: Persistent antral wall thickening. Prior recommendation for endoscopy or upper GI series is unchanged. Mild colonic wall edema may reflect a component of colitis.
--- NOTE | ~2023-03-22 | XR_ITS ---
EXAMINATION: XR chest 1V portable Exam Date/Time: 03/22/2023 13:40 CDT HISTORY: chest pain Comparison: 12/02/2022. RESULT: Lines, tubes, and devices: Loop recorder. Lungs and pleura: Senescent change, otherwise clear. Cardiomediastinal silhouette: Stable. Other: No acute osseous or upper abdominal finding. IMPRESSION: No acute cardiopulmonary process. Reviewed, dictated and finalized at location K.
--- NOTE | 2023-03-22 13:34 | ECG_ITS ---
Measurements Intervals [place] Rate: 57 P: 60 [place]: 241 QRS: -14 QRSD: 119 T: 71 QT: 463 QTc: 454 Interpretive Statements SINUS BRADYCARDIA WITH FIRST DEGREE AV BLOCK NONSPECIFIC T-WAVE ABNORMALITY BORDERLINE ECG COMPARED TO ECG 12/02/2022 19:11:35 ST SEGMENT DEPRESSION IS IMPROVED Electronically Signed On 03-24-2023 6:54:20 CDT by Fabian Kathleen M.D.
--- NOTE | 2023-03-22 13:52 | ED.CHESTPAIN ---
HPI - Chest Pain General Chief Complaint: Chest Pain Stated Complaint: chest pain Time Seen by Provider: 03/22/23 13:48 History of Present Illness HPI narrative: Patient is a 67-year-old female with history of ESRD on hemodialysis, MWF, AFib/flutter here with chest pain. Patient's spouse recently and she was arranging his clothing for his with her daughter and she began stating that she did not feel well. She is complaining of some midsternal chest pain and lightheadedness feeling as though she may pass out. She had persistent symptoms of her daughter brought her in for evaluation. she describes chest pain is midsternal and radiating upwards with some associated nausea, no vomiting. She does have some associated diffuse abdominal pain which seems to worse on the left side than the right side. Patient does note that she has been having a long-term issue of abdominal pain and constipation, typically has to take MiraLax to have bowel movements. It has been a couple of days since her last bowel movement. She only makes a small amount of urine occasionally, not every day. She denies any fever, chills, cough, congestion. No history of CAD. She has not missed any dialysis runs, last ran yesterday. Related Data Home Medications Medication Instructions Recorded Confirmed allopurinol 100 mg tablet 100 mg PO DAILY 11/01/22 12/02/22 alprazolam 0.5 mg tablet 0.5 mg PO QID PRN Anxiety 11/01/22 12/02/22 amantadine HCl 100 mg capsule 100 mg PO DAILY 11/01/22 12/02/22 atorvastatin 40 mg tablet 40 mg PO HS 11/01/22 12/02/22 docusate sodium 250 mg capsule 250 mg PO DAILY 11/01/22 12/02/22 ferric citrate 210 mg iron tablet 2 tablet PO BIDWM 11/01/22 12/02/22 (Auryxia) ferric citrate 210 mg iron tablet 3 tablet PO TIDWM 11/01/22 12/02/22 (Auryxia) fluticasone propionate 50 1 spray intranasal DAILY 11/01/22 12/02/22 mcg/actuation nasal spray,suspension folic acid 400 mcg tablet 0.4 mg PO DAILY 11/01/22 12/02/22 furosemide 80 mg tablet 80 mg PO 4XW 11/01/22 12/02/22 gentamicin 0.1 % topical cream 1 applic topical DAILY 11/01/22 12/02/22 hydrocodone 10 mg-acetaminophen 1 tablet PO Q6H PRN Pain (Scale 11/01/22 12/02/22 325 mg tablet Score 7-10) lamotrigine 150 mg tablet 150 mg PO Q12H 11/01/22 12/02/22 levetiracetam 750 mg tablet 750 mg PO BID 11/01/22 12/02/22 losartan 50 mg tablet 50 mg PO DAILY 11/01/22 12/02/22 montelukast 10 mg tablet 10 mg PO 1700 11/01/22 12/02/22 nifedipine 30 mg tablet,extended 30 mg PO DAILY 11/01/22 12/02/22 release 24 hr pregabalin 50 mg capsule 50 mg PO BID 11/01/22 12/02/22 ropinirole 0.5 mg tablet 0.5 mg PO BID 11/01/22 12/02/22 ropinirole 0.5 mg tablet 1.5 mg PO HS 11/01/22 12/02/22 tizanidine 4 mg tablet 4 mg PO BID PRN Muscle Spasm 11/01/22 12/02/22 vortioxetine 10 mg tablet 10 mg PO DAILY 11/01/22 12/02/22 (Trintellix) hydralazine 100 mg tablet 150 mg PO TID 02/25/23 Allergies Allergy/AdvReac Type Severity Reaction Status Date / Time adhesive tape Allergy Rash Verified 03/22/23 13:34 NSAIDS (Non-Steroidal Allergy Other Verified 03/22/23 13:34 Anti-Inflamma pickles AdvReac Swelling Uncoded 02/25/23 11:03 of Lip/Tongue/Throat Review of Systems Review of Systems: All systems reviewed & are unremarkable except as noted in HPI and below PMFSH Past Medical History Medical History Anxiety and depression Bipolar depression Breast cancer Constipation Coronary artery disease End stage renal disease On hemodialysis with peritoneal dialysis catheter in place Esophageal ulcer Gastric mass Benign hyperplastic foveolar mucosa partially obstructing pylorus Gastric ulcer Gastroparesis Hypertension Iron deficiency anemia Neuropathy Obstructive sleep apnea Patient has a history of severe obstructive sleep apnea diagnosed in 2005 with recommended CPAP of 18 Paroxysmal A-fib Tardive dyskinesia Surgical
[2023-03-22 14:08] LABS: Basophils Percent Auto 0.4 % (0.2-1.2); Eosinophils Absolute Auto 0.3 K/mm3 (0-0.3); Eosinophils Percent Auto 3.3 % (0-4.4); Hematocrit 37.4 % (37.0-47.0); Hemoglobin 11.8 g/dL (12.0-15.0); Immature Granulocyte Absolute 0.03 K/mm3 (0.00-0.031); Immature Granulocyte Percent A 0.4 % (0-0.5); Lymphocytes Absolute Auto 0.67 K/mm3 (0.9-3.2); Lymphocytes Percent Auto 8.9 % (18.3-44.2); Mean Corpuscular HGB Conc 31.6 g/dl (32-36); Mean Corpuscular Hemoglobin 29.7 pg (26-34); Mean Corpuscular Volume 94.2 fl (80-100); Mean Platelet Volume 10.3 fl (7.4-10.4); Monocytes Absolute Auto 0.9 K/mm3 (0.1-0.6); Monocytes Percent Auto 12.6 % (2.6-8.5); Neutrophils Absolute Auto 5.6 K/mm3 (1.3-6.7); Neutrophils Percent Auto 74.4 % (45.5-73.1); Platelet Count Result 146 k/mm3 (150-375); Red Blood Count 3.97 M/mm3 (4.2-5.4); Red Cell Distribution Width 16.6 % (11.5-14.5); White Blood Count 7.5 K/mm3 (4.5-10.0)
[2023-03-22] MEDS: ONDANSETRON INJ 4 MG/2 ML VIAL IV PUSH (14:13)
[2023-03-22] MEDS: PANTOPRAZOLE SODIUM IV 40 MG VIAL IV PUSH (14:14)
[2023-03-22 14:22] LABS: Prothrombin Time 13.1 Seconds (11.1-14.7)
[2023-03-22 14:23] LABS: Partial Thromboplastin Time 27.2 SECONDS (22.3-36.8)
[2023-03-22 15:01] LABS: Alanine Aminotransferase 18 U/L (6-35); Albumin Level 4.2 g/dL (3.5-5.1); Alkaline Phosphatase 143 U/L (38-126); Anion Gap 13 mmol/L (8-16); Aspartate Amino Transferase 30 U/L (14-36); Bilirubin,Total 0.8 mg/dL (0.2-1.3); Blood Urea Nitrogen 64 mg/dL (7-17); Calcium 9.5 mg/dL (8.4-10.2); Carbon Dioxide 29 mmol/L (22-30); Chloride 91 mmol/L (98-107); Estimated CRCL calculation 12 ml/min; Estimated Glomerular Filt Rate 11; Glucose 256 mg/dL (65-110); Potassium 5.9 mmol/L (3.4-5.0); Sodium 133 mmol/L (137-145)
[2023-03-22 15:11] LABS: NT Pro B Type Natriuretic Pept 6420 pg/mL (19.9-100); Troponin I 0.013 ng/mL (0.000-0.034)
[2023-03-22] MEDS: SODIUM POLYSTYRENE SULFONONATE 15 GM/60 ML BTL PO (15:31)
[2023-03-22] MEDS: BELLADONNA ALK/PHENOB ELIX 10 ML, MAG HYDROX/ALUMINUM HYD/SIMETH 30 ML, LIDOCAINE HCL 2... PO (17:03)
[2023-03-22 18:25] LABS: Troponin I 0.016 ng/mL (0.000-0.034)
== END 2023-03-22 18:59 | disposition home or self-care (01) ==
PROVIDERS: Emergency Medicine; Emergency Provider Student in an Organized Health Care Education/Training Program; PCP Family Medicine
DX: R07.89 Other chest pain (principal); K21.00 Gastro-esophageal reflux disease with esophagitis, without bleeding; I48.0 Paroxysmal atrial fibrillation; I48.92 Unspecified atrial flutter; I25.10 Atherosclerotic heart disease of native coronary artery without angina pectoris; I12.0 Hypertensive chronic kidney disease with stage 5 chronic kidney disease or end stage renal disease; N18.6 End stage renal disease; Z99.2 Dependence on renal dialysis; K31.84 Gastroparesis; D50.9 Iron deficiency anemia, unspecified; G47.33 Obstructive sleep apnea (adult) (pediatric); G24.01 Drug induced subacute dyskinesia; F41.9 Anxiety disorder, unspecified; F31.9 Bipolar disorder, unspecified; Z85.3 Personal history of malignant neoplasm of breast; Z87.891 Personal history of nicotine dependence; Z90.49 Acquired absence of other specified parts of digestive tract; Z98.42 Cataract extraction status, left eye; Z98.41 Cataract extraction status, right eye; Z96.1 Presence of intraocular lens; I44.0 Atrioventricular block, first degree; R00.1 Bradycardia, unspecified; R94.31 Abnormal electrocardiogram [ECG] [EKG]
CPT/HCPCS: 36415; 71045; 74176; 80053; 83880; 84484; 85025; 85610; 85730; 93005; 96374; 96375; 99284; A9270; C9113; J2405

== ENCOUNTER 2023-07-10 13:46 | Observation (INO) | payer MEDICARE, SELFPAY ==
[2023-07-10] VITALS (11 sets, daily range): BP systolic 88–153; BP diastolic 37–63; PULSE 52–73; RESP 13–21; O2SAT 97–100
--- NOTE | ~2023-07-10 | CT_ITS ---
EXAMINATION: CT brain wo con DATE: 07/11/2023 15:30 INDICATION: Syncope TECHNIQUE: Computed tomography (CT) of the head was performed without intravenous contrast. Sagittal and coronal reconstructions were performed. The mA was adjusted according to patient size. Iterative reconstruction technique was employed. The dose-length product was 681.00 mGy-cm. COMPARISON: head CT dated 12/02/2022 FINDINGS: No acute intracranial hemorrhage, acute infarction or abnormal extra axial fluid collection. Small ol d lacunar infarct in the left thalamus. There is moderate scattered white matter hypoattenuation cons istent with chronic small vessel ischemic disease. Symmetric prominence of the sulci and subarachnoid spaces overlying the convexities consistent with mild to moderate diffuse cerebral volume loss. Vent ricles are normal and symmetric. No mass/mass effect. Intracranial calcified cerebral atherosclerosis is noted. Changes of bilateral intraocular lens replacement. The orbits, paranasal sinuses and masto id air cells are normal. IMPRESSION: 1. No acute intracranial process. 2. Unchanged small old lacunar infarct in the left thalamus. 3. Moderate scattered white matter hypoattenuation consistent with chronic small vessel ischemic dise ase. Reviewed, dictated and finalized at location A. PHORIC ACID OPERATOR IMPRESSION: 1. No acute intracranial process. 2. Unchanged small old lacunar infarct in the left thalamus. 3. Moderate scattered white matter hypoattenuation consistent with chronic smal l vessel ischemic disease.
--- NOTE | ~2023-07-10 | XR_ITS ---
EXAMINATION: XR chest 1V portable DATE: 07/10/2023 20:51 INDICATION: Weakness. TECHNIQUE: A single frontal view of the chest was obtained. COMPARISON: Chest single view 03/22/2023 FINDINGS: There is no pneumonia, pleural effusion, or pneumothorax. The heart size is normal. There i s an electronic implant in left chest. IMPRESSION: 1. No acute cardiopulmonary disease. Reviewed, dictated and finalized at location E. UNTING LECTURER
--- NOTE | 2023-07-10 19:40 | ECG_ITS ---
Measurements Intervals [place] Rate: 58 P: 3 WV: 201 QRS: -11 QRSD: 107 T: 93 QT: 515 QTc: 508 Interpretive Statements SINUS BRADYCARDIA ST DEVIATION AND MODERATE T-WAVE ABNORMALITY, CONSIDER LATERAL ISCHEMIA [-0.1+ mV T- WAVE IN I/aVL/V5/V6] ABNORMAL ECG COMPARED TO ECG 03/22/2023 13:35:[address] DEPRESSION IS NOTED Electronically Signed On 07-11-2023 7:13:38 [employer] by Fabian Kathleen M.D.
[2023-07-10 19:57] LABS: Basophils Percent Auto 0.5 % (0.2-1.2); Eosinophils Absolute Auto 0.2 K/mm3 (0-0.3); Eosinophils Percent Auto 3.1 % (0-4.4); Hematocrit 32.7 % (37.0-47.0); Hemoglobin 10.4 g/dL (12.0-15.0); Immature Granulocyte Absolute 0.04 K/mm3 (0.00-0.031); Immature Granulocyte Percent A 0.5 % (0-0.5); Lymphocytes Absolute Auto 1.49 K/mm3 (0.9-3.2); Lymphocytes Percent Auto 19.6 % (18.3-44.2); Mean Corpuscular HGB Conc 31.8 g/dl (32-36); Mean Corpuscular Hemoglobin 30.1 pg (26-34); Mean Corpuscular Volume 94.8 fl (80-100); Mean Platelet Volume 9.3 fl (7.4-10.4); Monocytes Percent Auto 13.4 % (2.6-8.5); Neutrophils Absolute Auto 4.8 K/mm3 (1.3-6.7); Neutrophils Percent Auto 62.9 % (45.5-73.1); Platelet Count Result 199 k/mm3 (150-375); Red Blood Count 3.45 M/mm3 (4.2-5.4); Red Cell Distribution Width 13.4 % (11.5-14.5); White Blood Count 7.6 K/mm3 (4.5-10.0)
--- NOTE | 2023-07-10 20:00 | PC.NURSE ---
pt refused blood cultures to be drawn at this time. edp dr. berrios verbally okayed this and stated we could wait until we needed them .
[2023-07-10 20:08] LABS: Lactic Acid Reflex 1.5 mmol/L (0.7-2.0)
[2023-07-10 20:10] LABS: Alanine Aminotransferase 16 U/L (6-35); Albumin Level 4.4 g/dL (3.5-5.1); Alkaline Phosphatase 160 U/L (38-126); Anion Gap 12 mmol/L (8-16); Aspartate Amino Transferase 24 U/L (14-36); Bilirubin,Total 0.6 mg/dL (0.2-1.3); Blood Urea Nitrogen 49 mg/dL (7-17); Carbon Dioxide 34 mmol/L (22-30); Chloride 87 mmol/L (98-107); Estimated Glomerular Filt Rate 7; Glucose 129 mg/dL (65-110); Potassium 5.1 mmol/L (3.4-5.0); Sodium 133 mmol/L (137-145)
[2023-07-10 20:15] LABS: Prothrombin Time 13.3 Seconds (11.1-14.7)
[2023-07-10 20:17] LABS: Partial Thromboplastin Time 27.3 SECONDS (22.3-36.8)
[2023-07-10] MEDS: SODIUM CHLORIDE 0.9% IV 500 ML IV CONT (20:51)
[2023-07-10 20:56] LABS: Influenza A QL RT-PCR Negative (Negative); Influenza B QL RT-PCR Negative (Negative); RSV RNA, RT-PCR Negative (Negative); SARS-CoV-2 RNA PCR Negative (Negative)
[2023-07-10 21:16] LABS: Troponin I 0.026 ng/mL (0.000-0.034)
[2023-07-10 21:30] LABS: Procalcitonin 0.5 ng/mL
--- NOTE | 2023-07-10 21:45 | ED.GENADULT ---
HPI - General Adult General Chief complaint: Weakness Stated complaint: dizzy, weak Time Seen by Provider: 07/10/23 19:38 History of Present Illness HPI narrative: Patient 67-year-old female who presents emergency department with chief complaint of low blood pressure and near syncope. Patient reports that she has history of end-stage renal disease on dialysis Friday patient reports they have been adjusting her blood pressure medicines and reports that her blood pressures have been running on the lower side at home. Related Data Home Medications Medication Instructions Recorded Confirmed allopurinol 100 mg tablet 100 mg PO DAILY 11/01/22 12/02/22 alprazolam 0.5 mg tablet 0.5 mg PO QID PRN Anxiety 11/01/22 12/02/22 amantadine HCl 100 mg capsule 100 mg PO DAILY 11/01/22 12/02/22 atorvastatin 40 mg tablet 40 mg PO HS 11/01/22 12/02/22 docusate sodium 250 mg capsule 250 mg PO DAILY 11/01/22 12/02/22 ferric citrate 210 mg iron tablet 2 tablet PO BIDWM 11/01/22 12/02/22 (Auryxia) ferric citrate 210 mg iron tablet 3 tablet PO TIDWM 11/01/22 12/02/22 (Auryxia) fluticasone propionate 50 1 spray intranasal DAILY 11/01/22 12/02/22 mcg/actuation nasal spray,suspension folic acid 400 mcg tablet 0.4 mg PO DAILY 11/01/22 12/02/22 furosemide 80 mg tablet 80 mg PO 4XW 11/01/22 12/02/22 gentamicin 0.1 % topical cream 1 applic topical DAILY 11/01/22 12/02/22 hydrocodone 10 mg-acetaminophen 1 tablet PO Q6H PRN Pain (Scale 11/01/22 12/02/22 325 mg tablet Score 7-10) lamotrigine 150 mg tablet 150 mg PO Q12H 11/01/22 12/02/22 levetiracetam 750 mg tablet 750 mg PO BID 11/01/22 12/02/22 losartan 50 mg tablet 50 mg PO DAILY 11/01/22 12/02/22 montelukast 10 mg tablet 10 mg PO 1700 11/01/22 12/02/22 nifedipine 30 mg tablet,extended 30 mg PO DAILY 11/01/22 12/02/22 release 24 hr pregabalin 50 mg capsule 50 mg PO BID 11/01/22 12/02/22 ropinirole 0.5 mg tablet 0.5 mg PO BID 11/01/22 12/02/22 ropinirole 0.5 mg tablet 1.5 mg PO HS 11/01/22 12/02/22 tizanidine 4 mg tablet 4 mg PO BID PRN Muscle Spasm 11/01/22 12/02/22 vortioxetine 10 mg tablet 10 mg PO DAILY 11/01/22 12/02/22 (Trintellix) hydralazine 100 mg tablet 150 mg PO TID 02/25/23 Allergies Allergy/AdvReac Type Severity Reaction Status Date / Time adhesive tape Allergy Rash Verified 03/22/23 13:34 NSAIDS (Non-Steroidal Allergy Other Verified 03/22/23 13:34 Anti-Inflamma pickles AdvReac Swelling Uncoded 02/25/23 11:03 of Lip/Tongue/Throat Review of Systems Review of Systems: A 10 system review of systems was completed on the patient and is negative except for what is stated in the HPI. Nursing and ancillary documentation was reviewed. [facility] Past Medical History Medical History Anxiety and depression Bipolar depression Breast cancer Constipation Coronary artery disease End stage renal disease On hemodialysis with peritoneal dialysis catheter in place Esophageal ulcer Gastric mass Benign hyperplastic foveolar mucosa partially obstructing pylorus Gastric ulcer Gastroparesis Hypertension Iron deficiency anemia Neuropathy Obstructive sleep apnea Patient has a history of severe obstructive sleep apnea diagnosed in 2005 with recommended CPAP of 18 Paroxysmal A-fib Tardive dyskinesia Surgical History Surgical History 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 History of facial surgery Left orbit reconstruction due to trauma 1977 History of foot surgery Plantar fasciitis History of tubal ligation Hx of cholecystectomy (~1991) Peritoneal dialysis catheter in place Revised 10/31/[address] Pozo. The dialysis catheter
[2023-07-11] VITALS (34 sets, daily range): BP systolic 133–190; BP diastolic 51–84; PULSE 64–89; RESP 14–25; TEMP 35.2–37; O2SAT 96–99; BMI 24.5
--- NOTE | 2023-07-11 | ECHO_ITS ---
Patient Info Name: Yasmin Colbert Age: 67 years : 1955 Gender: Female Ht: 68 in Wt: 160 lbs BSA: 1.87 m2 HR: 71 bpm BP: 166 / 52 mmHg Heart Rhythm: Sinus Rhythm Technical Quality: Good Exam Date: 07/11/2023 3:38 PM Exam Location: Echo Lab Patient Status: Outpatient Admit Date: 07/11/2023 Staff Ordering Physician: Trang Ramirez APRN Supervisor Diagnostic: Mellisa Mendoza RDCS Attending Provider: Maddy Greer MD Exam Type: CA echo doppler w bubble study Study Info Indications R55 - Syncope and collapse Complete two-dimensional, color flow and Doppler transthoracic echocardiogram is performed with agitated saline. Contrast/Agitated Saline Contrast/Ag. Saline: Agitated Saline Amount: 20.00 ml Administered By: Mellisa Mendoza RDCS Existing IV Access: Yes IV Access Condition: patent with no signs of infiltration Summary 1. Left ventricular chamber dimension is normal. 2. Left ventricular systolic function is hyperdynamic, estimated at >70%. 3. There is mild concentric increased left ventricular wall thickness. 4. The left ventricular diastolic function is grade I diastolic dysfunction. 5. E/e' 17 is elevated. 6. Left atrial chamber dimension is mildly enlarged. 7. There is mild aortic valve sclerosis. 8. The mitral valve has moderately calcified annulus. 9. No pulmonary hypertension, estimated pulmonary arterial systolic pressure is 34 mmHg. 10. There is trace pulmonic regurgitation. Left Ventricle E/e' 17 is elevated. Left ventricular chamber dimension is normal. Left ventricular systolic function is hyperdynamic, estimated at >70%. There is mild concentric increased left ventricular wall thickness. The left ventricular diastolic function is grade I diastolic dysfunction. Right Ventricle Right ventricular systolic function is normal and with normal TAPSE 2.7 cm. Right ventricular chamber dimension is normal. Left Atria Left atrial chamber dimension is mildly enlarged. Right Atria Right atrial chamber dimension is normal. Atrial Septum Agitated saline injection with and without valsalva maneuver opacified right side cardiac chambers without shunt to left side cardiac chambers. Intact interatrial septum visualized by 2D and agitated saline imaging. Aortic Valve The aortic valve is trileaflet. There is mild aortic valve sclerosis. There is no aortic valve stenosis. There is no aortic valve regurgitation. Pulmonic Valve There is trace pulmonic regurgitation. Mitral Valve The mitral valve has moderately calcified annulus. There is no mitral valve stenosis. There is no mitral valve regurgitation. Tricuspid Valve There is no tricuspid valve regurgitation. No pulmonary hypertension, estimated pulmonary arterial systolic pressure is 34 mmHg. Pericardium/Pleural There is no pericardial effusion. Inferior Vena Cava Normal inferior vena cava with >50% collapse upon inspiration consistent with normal right atrial pressure, 5 mmHg. Aorta The aortic root size at the sinus of Valsalva is normal. Left Ventricular Outflow Tract Name Value Normal LVOT 2D LVOT Diameter 2.0 cm LVOT Doppler LVOT Peak Gradient 10 mmHg
--- NOTE | 2023-07-11 02:30 | PM.IMHP ---
H&P: HPI History of Present Illness Date/Time: 07/11/23 02:30 Chief Complaint: lightheadedness Narrative: This is a 67-year-old female with past medical history significant for end-stage renal disease on hemodialysis. Patient underwent a fistulogram where she received large amounts of fentanyl and Versed has been feeling lightheaded post procedure had episode of near-syncope was brought to the emergency room for evaluation. Patient denies any fevers, rigors, chills, nausea, vomiting, cough, sputum production. Preliminary workup has been essentially nonrevealing. Patient has been placed in observation EXAMINATION: XR chest 1V portable DATE: 07/10/2023 20:51 INDICATION: Weakness. TECHNIQUE: A single frontal view of the chest was obtained. COMPARISON: Chest single view 03/22/2023 FINDINGS: There is no pneumonia, pleural effusion, or pneumothorax. The heart size is normal. There is an electronic implant in left chest. IMPRESSION: 1. No acute cardiopulmonary disease. Review of Systems Review of Systems: lightheadedness Constitutional: Constitutional: Denies chills, Denies fever(s), Denies malaise and Reports weakness Eyes: Eyes: Denies change in vision ENT: Denies dysphagia and Denies odynophagia Cardiovascular: Cardiovascular: Denies chest pain, Denies radiating jaw, neck or arm pain and Denies palpitations Respiratory: Respiratory: Denies cough and Denies dyspnea Gastrointestinal: Gastrointestinal: Denies abdominal pain, Denies diarrhea, Denies nausea and Denies vomiting Genitourinary: Genitourinary: Denies dysuria Musculoskeletal: Musculoskeletal: Reports muscle weakness Integumentary/Breasts: Skin/Breast: Denies rash Neurologic: Denies focal weakness and Denies Sensory deficit (Neuro) Psychiatric: Psychiatric: Reports no additional psychiatric complaints and Reports as per HPI Endocrine: Endocrine: Denies cold intolerance, Denies flushing, Denies heat intolerance, Denies polyphagia, Denies polydipsia and Denies palpitations Hematologic/Lymphatic: Hematologic/Lymphatic: Reports no additional hematologic/lymphatic complaints and Reports as per HPI Allergic/Immunologic: Allergic/Immunologic: Reports no additional allergic/immunologic complaints and Reports as per HPI [facility] Past Medical History Medical History Anxiety and depression Bipolar depression Breast cancer Constipation Coronary artery disease End stage renal disease On hemodialysis with peritoneal dialysis catheter in place Esophageal ulcer Gastric mass Benign hyperplastic foveolar mucosa partially obstructing pylorus Gastric ulcer Gastroparesis Hypertension Iron deficiency anemia Neuropathy Obstructive sleep apnea Patient has a history of severe obstructive sleep apnea diagnosed in 2005 with recommended CPAP of 18 Paroxysmal A-fib Tardive dyskinesia Surgical History Surgical History 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 History of facial surgery Left orbit reconstruction due to trauma 1977 History of foot surgery Plantar fasciitis History of tubal ligation Hx of cholecystectomy (~1991) Peritoneal dialysis catheter in place Revised 10/31/[address] Pozo. The dialysis catheter had been initially placed and May at [facility]. It was subsequently removed in mid October. S/P appendectomy (10/31/22) Dilated appendix, extensive adhesion lysis of adhesions around peritoneal dialysis catheter Status post cataract extraction of both eyes with insertion of intraocular lens Family History Family History Daughter Precancerous changes of the cervix P
--- NOTE | 2023-07-11 02:35 | ADMGEN ---
This patient, Yasmin Colbert, was admitted to Medical Room 254-01. Patient/family oriented to hospital policies and general routines including ID bracelet, bed and alarms, visiting hours, pain management, procedures, bathroom and other care routines, personal items, smoking policy, room service/diet, and visiting hours. Information on how to activate the Rapid Response Team has been discussed. Patient/Family are encouraged to report perceived risks to care and to ask questions if they do not understand what they are told or what they should do.
[2023-07-11 06:19] LABS: Basophils Percent Auto 0.5 % (0.2-1.2); Eosinophils Absolute Auto 0.2 K/mm3 (0-0.3); Eosinophils Percent Auto 2.9 % (0-4.4); Hematocrit 29.4 % (37.0-47.0); Hemoglobin 9.7 g/dL (12.0-15.0); Immature Granulocyte Absolute 0.03 K/mm3 (0.00-0.031); Immature Granulocyte Percent A 0.4 % (0-0.5); Lymphocytes Absolute Auto 1.71 K/mm3 (0.9-3.2); Lymphocytes Percent Auto 21.9 % (18.3-44.2); Mean Corpuscular Hemoglobin 31.2 pg (26-34); Mean Corpuscular Volume 94.5 fl (80-100); Mean Platelet Volume 9.9 fl (7.4-10.4); Monocytes Absolute Auto 1.1 K/mm3 (0.1-0.6); Monocytes Percent Auto 14.1 % (2.6-8.5); Neutrophils Absolute Auto 4.7 K/mm3 (1.3-6.7); Neutrophils Percent Auto 60.2 % (45.5-73.1); Platelet Count Result 182 k/mm3 (150-375); Red Blood Count 3.11 M/mm3 (4.2-5.4); Red Cell Distribution Width 13.2 % (11.5-14.5); White Blood Count 7.8 K/mm3 (4.5-10.0)
[2023-07-11 06:33] LABS: Alanine Aminotransferase 14 U/L (6-35); Albumin Level 3.9 g/dL (3.5-5.1); Alkaline Phosphatase 142 U/L (38-126); Anion Gap 13 mmol/L (8-16); Aspartate Amino Transferase 24 U/L (14-36); Bilirubin,Total 0.4 mg/dL (0.2-1.3); Blood Urea Nitrogen 63 mg/dL (7-17); Calcium 9.5 mg/dL (8.4-10.2); Carbon Dioxide 31 mmol/L (22-30); Chloride 92 mmol/L (98-107); Estimated CRCL calculation 8 ml/min; Estimated Glomerular Filt Rate 6; Glucose 160 mg/dL (65-110); Magnesium 2.4 mg/dL (1.6-2.3); Phosphorus 8.7 mg/dL (2.5-4.5); Sodium 136 mmol/L (137-145)
[2023-07-11 07:34] LABS: Hepatitis B Surface Antigen Negative (Negative)
[2023-07-11 07:52] LABS: Hepatitis B Surface Anti Res Positive
--- NOTE | 2023-07-11 10:00 | PM.CNNEP ---
Assessment and Plan Assessment and plan (1) End stage renal disease: Code(s): N18.6 - End stage renal disease Status: Chronic Assessment and Plan: HD today continue outpatient schedule of M/W/F follow electrolytes, volume status, and clearance (2) Lightheadedness: Code(s): R42 - Dizziness and giddiness Status: Acute Assessment and Plan: suspect secondary to procedural drug administration of Versed and fentanyl clinically better at this time (3) Generalized weakness: Code(s): R53.1 - Weakness Status: Acute Assessment and Plan: partly due to #2 and associated generalized deconditioning PT/OT if needed hopefully resolution of #2 with improve this issue (4) Anemia: Code(s): D64.9 - Anemia, unspecified Status: Acute Assessment and Plan: partly related to ESRD Epogen with HD follow trend on H/H (5) Hypertension: Qualifiers: Hypertension type: secondary to other renal disorders Qualified Code(s): I15.1 - Hypertension secondary to other renal disorders; N28.89 - Other specified disorders of kidney and ureter Code(s): I10 - Essential (primary) hypertension Status: Acute Assessment and Plan: low on presentation but better currently follow trend of hemodynamics I will continue follow the patient with you while she remains hospitalized and make further recommendations during hospital course. Thank you for allowing me to participate in care with patient. History of Present Illness Reason for Consult Consult date: 07/11/23 Reason for consult: end stage renal disease Chief Complaint Chief complaint: ESRD on HD,Generalized Weakness,Near Syncope History of Present Illness Narrative: The patient is a 67-year-old female with a past medical history as outlined below who presented to [facility] Emergency room with complaints of generalized weakness/dizziness. The patient reports that her blood pressure has been fluctuating to extremes necessitating adjustment in her antihypertensive medication regimen. However, her symptoms of weakness and dizziness did not really seem to become an issue until the day of admission. It should be noted that she had a recent fistulogram of her dialysis access due to concerns of possible stenosis and excessive bleeding times. I am unclear what the procedure actually demonstrated but she does report that they were given her significant IV pushes of Versed and fentanyl during the procedure. Despite this, she did not feel any sleepiness or fatigue during the procedure but later that day and earlier yesterday, she did seem to note some lightheadedness/dizziness. As the symptoms continued to progress, she finally decided to come to the emergency room for further assessment. Workup and evaluation emergency room did demonstrate the patient be relatively hypotensive in the high 80s systolic when she is normally at baseline hypertensive. She was otherwise afebrile in in no acute distress. Routine blood test demonstrated labs consistent with her known history of end-stage renal disease without any acute/critical electrolyte abnormalities, metabolic acidosis, or evidence of volume overload. Given her relative hypotension in the emergency room along with her constellation of symptoms, she did receive a 500 cc normal saline bolus which seem to significantly improve her blood pressure status. Given her symptoms and her low BP on presentation to the emergency room, she was admitted for observation to ensure that her hemodynamics improve. Since her ER visit, her blood pressure seems to be normalized if not back to her mildly hypertensive status. She overall feels better in general which seems to correlate with her better blood pressure readings Renal consultation was requested due to her end-stage renal disease. The patient currently does hemodialysis at [facility] under the
--- NOTE | 2023-07-11 11:10 | PM.IMPN ---
Progress Note: A&P Assessment and Plan (1) Lightheadedness: Code(s): R42 - Dizziness and giddiness Status: Acute Assessment and Plan: likely secondary to procedural drug administration of Versed and fentanyl 07/11- Denies further lightheadedness at this time. Contributing event are numerous as medications changes, hemodialysis, and procedures with drug administration, cardiovascular issues. Work up for syncopal episode. 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 Differential diagnosis includes dehydration, medication side effect, electrolyte abnormality. (3) ESRD on hemodialysis: Code(s): N18.6 - End stage renal disease; Z99.2 - Dependence on renal dialysis Status: Acute Assessment and Plan: nephrology consult continue dialysis as needed 07/11: Right arm fistula present-Enlarged Patient stated fistulogram on Fri. Dialysis today (4) Gastric ulcer: Qualifiers: Gastric ulcer chronicity: unspecified ulcer chronicity Gastric ulcer complication status: unspecified whether hemorrhage or perforation present Qualified Code(s): K25.9 - Gastric ulcer, unspecified as acute or chronic, without hemorrhage or perforation Code(s): K25.9 - Gastric ulcer, unspecified as acute or chronic, without hemorrhage or perforation Status: Acute Assessment and Plan: on PPI 07/11: Home medication restarted, Pantoprazole (5) Neuropathy: Code(s): G62.9 - Polyneuropathy, unspecified Status: Acute Assessment and Plan: unchanged (6) Tardive dyskinesia: Code(s): G24.01 - Drug induced subacute dyskinesia Status: Acute Assessment and Plan: unchanged (7) Paroxysmal A-fib: Code(s): I48.0 - Paroxysmal atrial fibrillation Status: Acute Assessment and Plan: patient is status post ablation 07/11: Home medications restarted Time Spent With Patient Time with patient: 15 - 25 minutes Subjective Date/time seen: 07/11/23 2990 Interval history: 67 year old female examined at bedside interval as she presented to ER after syncopal episode and hypotensive. Patient stated she has had recent medication changes such as blood pressure medications. Patient also expressed that on Fri she went to dialysis and also underwent a fistulogram where she received what she stated was extra amounts of fentanyl and versed, because it just wasn't touching her. She stated she still had not felt drowsy or lightheaded after that procedure as she was able to do errand with her attendant to the [email or web address] tree. She expressed later that day and into next day she just didn't feel right . Patient stated she did have 2 syncopal episodes, witnessed by her attendant. Stated the first one she believes that she was down for 20 minutes, when she awakened attended to blood pressure, it was low and they called EMS to bring her here. Patient denies any recent illness, fever, chills SOB, cough or chest pain. Patient was admitted for Near syncope, Generalized weakness, ESRD on hemodialysis. Preliminary workup has been essentially nonrevealing.?CBC showed white count 7.6 hemoglobin was 10.4.? Coags are within normal limits electrolytes showed a potassium of 5.1 CO2 was 34 BUN is 49 creatinine is 5.8 lactic acid is 1.5 troponin is 0.026 procalcitonin is 0.5 COVID flu and influenza was negative chest x-ray showed no focal infiltrate. Nephrology was consults ad she is an active hemodialysis patient, Friday, Friday, Friday. Patient stated that she is feeling better. She denies any pain or lightheadedness, or change in vision at this time. Repeat labs today. Dialysis today, access is right arm fistula, it is enlarged, thrill present. Will continue work up for syncopal episode to R/O
[2023-07-11] MEDS: EPOETIN ALFA-EPBX 10,000 UNITS/ML VIAL 10000 UNITS IV PUSH (11:38)
[2023-07-11] MEDS: NIFEdipine 30 MG TAB.ER.24 60 MG PO (14:42)
[2023-07-11] MEDS: allopurinoL 100 MG TABLET PO (14:43)
[2023-07-11] MEDS: hydrALAZINE HCL 50 MG TABLET 150 MG PO (14:43)
[2023-07-11] MEDS: CHOLECALCIFEROL 1,000 UNITS TABLET 5000 UNITS PO (14:43)
[2023-07-11] MEDS: LOSARTAN POTASSIUM 50 MG TABLET 100 MG PO (14:43)
[2023-07-11] MEDS: levETIRAcetam 250 MG TABLET 750 MG PO (14:43)
[2023-07-11] MEDS: FUROSEMIDE 80 MG TABLET PO (14:43)
[2023-07-11] MEDS: carvediloL 6.25 MG TABLET PO ×2 (14:43→19:53)
[2023-07-11] MEDS: ANASTROZOLE (*CHEMO) 1 MG TABLET PO (14:44)
[2023-07-11] MEDS: GENTAMICIN SULFATE 0.1% CR 15 GM TUBE 1 APPLIC TOPICAL (14:44)
[2023-07-11] MEDS: DOCUSATE SODIUM 100 MG CAPSULE PO ×2 (14:44→19:52)
[2023-07-11] MEDS: SEVELAMER CARBONATE 800 MG TABLET 2400 MG PO (14:45)
[2023-07-11] MEDS: rOPINIRole HCL 0.5 MG TABLET PO (16:14)
[2023-07-11] MEDS: rOPINIRole HCL 0.5 MG TABLET 1.5 MG PO (19:52)
[2023-07-11] MEDS: lamoTRIgine 50 MG TABLET 150 MG PO (19:53)
[2023-07-11] MEDS: ATORVASTATIN 40 MG TABLET PO (19:53)
[2023-07-11] MEDS: MONTELUKAST SODIUM 10 MG TABLET PO (19:53)
[2023-07-12] VITALS (7 sets, daily range): BP systolic 161–166; BP diastolic 53–56; PULSE 59–66; RESP 16–18; TEMP 36–36.3; O2SAT 97–99
[2023-07-12] MEDS: LEVOTHYROXINE SODIUM 50 MCG TABLET PO (05:26)
[2023-07-12 05:31] LABS: Hematocrit 28.9 % (37.0-47.0); Hemoglobin 9.2 g/dL (12.0-15.0); Mean Corpuscular HGB Conc 31.8 g/dl (32-36); Mean Corpuscular Hemoglobin 30.7 pg (26-34); Mean Corpuscular Volume 96.3 fl (80-100); Mean Platelet Volume 9.5 fl (7.4-10.4); Platelet Count Result 171 k/mm3 (150-375); White Blood Count 7.5 K/mm3 (4.5-10.0)
[2023-07-12 05:49] LABS: Alanine Aminotransferase 13 U/L (6-35); Albumin Level 3.7 g/dL (3.5-5.1); Alkaline Phosphatase 134 U/L (38-126); Anion Gap 10 mmol/L (8-16); Aspartate Amino Transferase 21 U/L (14-36); Bilirubin,Total 0.4 mg/dL (0.2-1.3); Blood Urea Nitrogen 39 mg/dL (7-17); Calcium 9.8 mg/dL (8.4-10.2); Carbon Dioxide 30 mmol/L (22-30); Chloride 97 mmol/L (98-107); Estimated CRCL calculation 11 ml/min; Estimated Glomerular Filt Rate 10; Glucose 141 mg/dL (65-110); Magnesium 2.3 mg/dL (1.6-2.3); Potassium 4.8 mmol/L (3.4-5.0); Sodium 137 mmol/L (137-145)
[2023-07-12] MEDS: PANTOPRAZOLE 40 MG TABLET PO (10:00)
[2023-07-12] MEDS: CHOLECALCIFEROL 1,000 UNITS TABLET 5000 UNITS PO (10:00)
[2023-07-12] MEDS: rOPINIRole HCL 0.5 MG TABLET PO (10:01)
[2023-07-12] MEDS: SEVELAMER CARBONATE 800 MG TABLET 2400 MG PO ×2 (10:01→13:46)
[2023-07-12] MEDS: FOLIC ACID 1 MG TABLET PO (10:01)
[2023-07-12] MEDS: LOSARTAN POTASSIUM 50 MG TABLET 100 MG PO (10:01)
[2023-07-12] MEDS: DOCUSATE SODIUM 100 MG CAPSULE PO (10:01)
[2023-07-12] MEDS: carvediloL 6.25 MG TABLET PO (10:02)
[2023-07-12] MEDS: allopurinoL 100 MG TABLET PO (10:02)
[2023-07-12] MEDS: FUROSEMIDE 80 MG TABLET PO (10:02)
[2023-07-12] MEDS: ANASTROZOLE (*CHEMO) 1 MG TABLET PO (10:02)
[2023-07-12] MEDS: levETIRAcetam 250 MG TABLET 750 MG PO (10:02)
[2023-07-12] MEDS: NIFEdipine 30 MG TAB.ER.24 60 MG PO (10:02)
[2023-07-12] MEDS: hydrALAZINE HCL 50 MG TABLET 150 MG PO ×2 (10:02→13:44)
[2023-07-12] MEDS: GENTAMICIN SULFATE 0.1% CR 15 GM TUBE 1 APPLIC TOPICAL (10:04)
[2023-07-12] MEDS: lamoTRIgine 50 MG TABLET 150 MG PO (10:07)
--- NOTE | 2023-07-12 11:06 | PM.PNNEP ---
Progress Note: A&P Assessment and Plan (1) End stage renal disease: Code(s): N18.6 - End stage renal disease Status: Chronic Assessment and Plan: HD yesterday continue outpatient schedule of M/W/F follow electrolytes, volume status, and clearance (2) Lightheadedness: Code(s): R42 - Dizziness and giddiness Status: Acute Assessment and Plan: suspect secondary to procedural drug administration of Versed and fentanyl clinically better at this time (3) Generalized weakness: Code(s): R53.1 - Weakness Status: Acute Assessment and Plan: partly due to #2 and associated generalized deconditioning PT/OT if needed hopefully resolution of #2 with improve this issue (4) Anemia: Code(s): D64.9 - Anemia, unspecified Status: Acute Assessment and Plan: partly related to ESRD Epogen with HD follow trend on H/H (5) Hypertension: Qualifiers: Hypertension type: secondary to other renal disorders Qualified Code(s): I15.1 - Hypertension secondary to other renal disorders; N28.89 - Other specified disorders of kidney and ureter Code(s): I10 - Essential (primary) hypertension Status: Acute Assessment and Plan: low on presentation but better currently follow trend of hemodynamics Not opposed to discharge from renal perspective if otherwise medically stable; she can follow-up with her primary chemical dependency therapist at her outpatient dialysis center. Will continue to follow. Subjective Date/time seen: 07/12/23 11:06 Interval history: Follow-up for end stage renal disease on hemodialysis. Tolerated dialysis treatment yesterday without any issue or problems noted; BP has been stable if not a tad elevated at this time; no apparent distress voiced currently; no issues/events overnight or earlier this morning. Exam Narrative: General: elderly female in NAD Heart: normal S1 and S2; no rub Lungs: clear to auscultation Abdomen: soft, nontender, nondistended, positive bowel sounds Extremities: no cyanosis or clubbing; no edema Skin: warm and dry Objective Data Vital Signs Vital Signs: Vital Signs Temp Pulse Resp BP Pulse Ox O2 Del Method 07/12/23 12:00 62 07/12/23 10:02 63 Room Air 07/12/23 09:59 97.3 F L 63 16 161/53 H 99 07/12/23 08:00 60 07/11/23 21:52 96 Room Air 07/12/23 05:25 96.8 F L 60 18 166/56 H 97 07/12/23 04:00 59 L 07/12/23 00:00 66 07/11/23 20:00 70 07/11/23 19:56 68 20 96 Room Air 07/11/23 19:22 97.5 F L 68 20 147/53 H 96 07/11/23 16:00 71 07/11/23 15:03 98.5 F 71 16 174/59 H 96 07/11/23 13:52 97.4 F L 70 18 190/79 H 99 07/11/23 13:04 65 170/78 H Intake/Output Intake/Output: Intake & Output 07/09/23 07/10/23 07/11/23 07/12/23 23:59 23:59 23:59 23:59 Intake Total 500 840 400 Output Total 1100 100 Balance 500 -260 300 Meds/Results Medications: Active Medications Generic Name Dose Route Start Last Admin Trade Name Freq PRN Reason Stop Dose Admin Albuterol 2 puff 07/11/23 10:45 Albuterol Sulfate (*Sp) Aerosol 1 Puff INHALATION Q6H PRN Shortness Of Breath Or Wheezing Allopurinol 100 mg 07/11/23 11:10 07/12/23 10:02 Allopurinol 100 Mg Tablet PO 100 mg DAILY PHYLICIA Administration Alprazolam 0.5 mg 07/11/23 10:45 Alprazolam (*Crx) 0.5 Mg Tablet PO QID PRN Anxiety Amantadine HCl 100 mg 07/14/23 09:00 Amantadine Hcl 100 Mg Capsule PO WEEKLY PHYLICIA Anastrozole 1 mg 07/11/23 11:10 07/12/23 10:02 Anastrozole (*Chemo) 1 Mg Tablet PO 1 mg DAILY PHYLICIA Administration Atorvastatin Calcium 40 mg 07/11/23 21:00 07/11/23 19:53 Atorvastatin 40 Mg Tablet PO 40 mg HS PHYLICIA Administration Carvedilol 6.25 mg 07/11/23 11:05 07/12/23 10:02 Carvedilol 6.25 Mg Tablet PO 6.25 mg Q12HR PHYLICIA Admi
--- NOTE | 2023-07-12 11:21 | PM.DS ---
DS: Admitting Diagnosis Discharge Date 07/12/23 Admitting Diagnosis Syncope, weakness, ESRD- Hemodialysis DS: Discharge Diagnosis Discharge Diagnosis (1) Lightheadedness: Code(s): R42 - Dizziness and giddiness Status: Acute Assessment and Plan: likely secondary to procedural drug administration of Versed and fentanyl 07/11- Denies further lightheadedness at this time. Contributing event are numerous as medications changes, hemodialysis, and procedures with drug administration, cardiovascular issues. Work up for syncopal episode. 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 Stated she feels great. HD yesterday- stated went well. Ambulating without issues. No episodes of low blood pressure charted. CT head notes no acute intrcranial process, Unchanged small lacunar infarct in the left thalamus and moderate scattered white matter hypoattenuated consistent with chronic small vessel ischemic disease- also seen on previous imaging studies. Echo results include LVSF >70% and LVDF grade I diastolic dysfunction. Patient made aware of results. Patient comfortable with Discharge home at this time. She has an attendant that aids her. Educate to return to ED if any further episodes. (2) Generalized weakness: Code(s): R53.1 - Weakness Status: Acute Assessment and Plan: likely secondary to deconditioning 07/11- Denies further weakness at this time. Differential diagnosis includes dehydration, medication side effect, electrolyte abnormality. 07/12- Patient has been ambulating independently without issue. Denies any further issues with weakness. HD yesterday no concerns noted. Patient states she feels much better today. Patient agreeable to discharge home today. (3) ESRD on hemodialysis: Code(s): N18.6 - End stage renal disease; Z99.2 - Dependence on renal dialysis Status: Acute Assessment and Plan: nephrology consult continue dialysis as needed 07/11: Right arm fistula present-Enlarged Patient stated fistulogram on Fri. Dialysis today 07/12- Cr 4.6, GFR 10. Labs improved post dialysis. Hospitalist appreciate Nephrology following for dialysis needs. (4) Gastric ulcer: Qualifiers: Gastric ulcer chronicity: unspecified ulcer chronicity Gastric ulcer complication status: unspecified whether hemorrhage or perforation present Qualified Code(s): K25.9 - Gastric ulcer, unspecified as acute or chronic, without hemorrhage or perforation Code(s): K25.9 - Gastric ulcer, unspecified as acute or chronic, without hemorrhage or perforation Status: Acute Assessment and Plan: on PPI 07/11: Home medication restarted, Pantoprazole 07/12: Denies issue at this time. Continue home medications at discharge (5) Neuropathy: Code(s): G62.9 - Polyneuropathy, unspecified Status: Acute Assessment and Plan: unchanged 07/12- No new concerns. (6) Tardive dyskinesia: Code(s): G24.01 - Drug induced subacute dyskinesia Status: Acute Assessment and Plan: unchanged 07/12- No new concerns (7) Paroxysmal A-fib: Code(s): I48.0 - Paroxysmal atrial fibrillation Status: Acute Assessment and Plan: patient is status post ablation 07/11: Home medications restarted 07/12- HR 60s- Rate controlled No concerns during this admission. Continue home medications at discharge DS: Summary Hospital Course Reason for hospitalization: Syncope, weakness, ESRD- HD Hospital Course: 67-year-old female who presented to ER with chief complaint of syncope and low blood pressure.? Patient reports that she has history of end-stage renal disease on dialysis Friday. Patient reports she recently had fistulogram on Friday after dialysis and she was give lots of fentanyl and versed . Differential diagnosis includes dehydration, medication side effect
== END 2023-07-12 14:15 | disposition home or self-care (01) ==
LOC: ANHED 22:00 → ANH2MED 07-11 06:56
PROVIDERS: Internal Medicine Nephrology; Nurse Practitioner Family; Admitting Provider Internal Medicine; Emergency Provider Emergency Medicine; Visit Provider Internal Medicine
DX: R42 Dizziness and giddiness (principal); R53.1 Weakness; I12.0 Hypertensive chronic kidney disease with stage 5 chronic kidney disease or end stage renal disease; N18.6 End stage renal disease; Z99.2 Dependence on renal dialysis; I25.10 Atherosclerotic heart disease of native coronary artery without angina pectoris; K25.9 Gastric ulcer, unspecified as acute or chronic, without hemorrhage or perforation; F31.9 Bipolar disorder, unspecified; F41.9 Anxiety disorder, unspecified; D50.9 Iron deficiency anemia, unspecified; G62.9 Polyneuropathy, unspecified; I48.0 Paroxysmal atrial fibrillation; G47.33 Obstructive sleep apnea (adult) (pediatric); G24.01 Drug induced subacute dyskinesia; K59.00 Constipation, unspecified; Z85.3 Personal history of malignant neoplasm of breast; Z79.891 Long term (current) use of opiate analgesic; Z87.891 Personal history of nicotine dependence; Z20.822 Contact with and (suspected) exposure to COVID-19
CPT/HCPCS: 36415; 70450; 71045; 80053; 83605; 83735; 84100; 84145; 84484; 85025; 85027; 85610; 85730; 86706; 87340; 87637; 93005; 93306; 96360; 96361; 96374; 96375; 99285; A9270; G0257; G0378; J7030; J7040; Q5105

== ENCOUNTER 2023-11-19 05:26 | Observation (INO) | payer MEDICARE, MEDICAID, SELFPAY ==
[2023-11-19] VITALS (24 sets, daily range): BP systolic 133–206; BP diastolic 47–88; PULSE 57–66; RESP 13–18; TEMP 36.4–37.2; O2SAT 93–99; BMI 25.9
--- NOTE | ~2023-11-19 | XR_ITS ---
EXAMINATION: XR hip RT 2V w AP pelvis DATE: 11/19/2023 06:13 INDICATION: Right hip pain. TECHNIQUE: An anteroposterior view of the pelvis and 2 views of right hip were obtained. COMPARISON: None. FINDINGS: Bone alignment is normal. No fracture. There is mild osteoarthritis of the hips. There is s evere lumbar spondylosis. Osteitis pubis is noted. IMPRESSION: 1. Mild osteoarthritis of the hips. Reviewed, dictated and finalized at location A.
--- NOTE | ~2023-11-19 | CT_ITS ---
EXAMINATION: CT brain wo con DATE: 11/19/2023 07:52 INDICATION: Head injury. TECHNIQUE: Computed tomography (CT) of the head was performed without intravenous contrast. The mA wa s adjusted according to patient size. Iterative reconstruction technique was employed. The dose-lengt h product was 605.33 mGy-cm. COMPARISON: Head CT 07/11/2023, sinuses CT 06/28/22 FINDINGS: There are scattered areas of low attenuation in the cerebral white matter. There is an old lacunar infarct in left thalamus. There is no intracranial hemorrhage, acute infarction, or abnormal intracranial mass lesion. The ventricles are normal in size. There are likely changes of ocular lens replacement surgeries. There is mild mucosal thickening in the paranasal sinuses. The mastoid air colt ls are normal. There is a 10 mm mass in left parotid gland. IMPRESSION: 1. Old lacunar infarct in left thalamus. 2. Stable moderate nonspecific cerebral white matter disease, which likely represents chronic small v essel ischemic disease. 3. 10 mm parotid mass, stable from 06/28/2022. The differential diagnosis includes benign mixed tumor, Warthin tumor, and reactive lymph node. Reviewed, dictated and finalized at location A. IMPRESSION: 1. Old lacunar infarct in left thalamus. 2. Stable moderate nonspecific cerebral white matter disease, which likely repr esents chronic small vessel ischemic disease. 3. 10 mm parotid mass, stable from 06/28/2022. The differential diagnosis includ es benign mixed tumor, Warthin tumor, and reactive lymph node.
--- NOTE | ~2023-11-19 | XR_ITS ---
EXAMINATION: XR shoulder RT min 2V DATE: 11/19/2023 10:47 INDICATION: Right shoulder pain. Fall. TECHNIQUE: 4 views of right shoulder were obtained. COMPARISON: Right shoulder radiographs 06/28/2022 FINDINGS: Bone alignment is normal. No fracture. There is mild osteoarthritis of acromioclavicular noé int and severe osteoarthritis of glenohumeral joint. There are surgical clips in right breast. There is an electronic implant overlying left chest. IMPRESSION: 1. Polyarticular osteoarthritis. Reviewed, dictated and finalized at location A.
--- NOTE | 2023-11-19 06:11 | PC.NURSE ---
NOEMY Hartman - 4mg zofran
[2023-11-19] MEDS: ONDANSETRON INJ 4 MG/2 ML VIAL IV PUSH ×4 (06:13→18:43)
[2023-11-19] MEDS: MORPHINE SULFATE (*CRX) 4 MG/ML INJ IV PUSH (07:53)
--- NOTE | 2023-11-19 08:05 | ED.FALL ---
HPI - Fall General Chief Complaint: Fall Stated Complaint: R HIP PAIN S/P FALL Time Seen by Provider: 11/19/23 06:57 History of Present Illness HPI Narrative: Patient is a 68-year-old female who presents ER status post fall. Occurred in the early hours of the morning when she slipped and fell onto her right side. She is unsure if she hit her head but has mild headache and some vomiting. The pain right hip is associated with swelling. She has increased pain with range of motion. No numbness or tingling. She is not on any blood thinning medications. Related Data Home Medications Medication Instructions Recorded Confirmed allopurinol 100 mg tablet 100 mg PO DAILY 11/01/22 11/19/23 alprazolam 0.5 mg tablet 0.5 mg PO QID PRN Anxiety 11/01/22 11/19/23 atorvastatin 40 mg tablet 40 mg PO HS 11/01/22 11/19/23 fluticasone propionate 50 1 spray intranasal DAILY 11/01/22 11/19/23 mcg/actuation nasal spray,suspension furosemide 80 mg tablet 80 mg PO DAILY 11/01/22 11/19/23 gentamicin 0.1 % topical cream 1 applic topical DAILY 11/01/22 11/19/23 lamotrigine 150 mg tablet 150 mg PO Q12H 11/01/22 11/19/23 levetiracetam 750 mg tablet 750 mg PO DAILY 11/01/22 11/19/23 losartan 50 mg tablet 100 mg PO DAILY 11/01/22 11/19/23 montelukast 10 mg tablet 10 mg PO HS 11/01/22 11/19/23 ropinirole 0.5 mg tablet 0.5 mg PO BID 11/01/22 11/19/23 ropinirole 0.5 mg tablet 1.5 mg PO HS 11/01/22 11/19/23 tizanidine 4 mg tablet 4 mg PO BID PRN Muscle Spasm 11/01/22 11/19/23 hydralazine 100 mg tablet 100 mg PO DAILY 02/25/23 11/19/23 albuterol sulfate 90 mcg/actuation 2 puff inhalation Q6H PRN 07/11/23 11/19/23 aerosol inhaler Shortness Of Breath Or Wheezing amantadine HCl 100 mg capsule 100 mg PO WEEKLY 07/11/23 11/19/23 anastrozole 1 mg tablet 1 mg PO DAILY 07/11/23 11/19/23 carvedilol 6.25 mg tablet 6.25 mg PO Q12H 07/11/23 11/19/23 cholecalciferol (vitamin D3) 125 5,000 unit PO DAILY 07/11/23 11/19/23 mcg (5,000 unit) tablet docusate sodium 100 mg capsule 100 mg PO Q12H 07/11/23 11/19/23 folic acid 1 mg tablet 1 mg PO DAILY 07/11/23 11/19/23 insulin glargine U-300 conc 300 6 unit subcut DAILY 07/11/23 11/19/23 unit/mL (3 mL) subcutaneous pen (Toujeo Max U-300 SoloStar) levothyroxine 50 mcg tablet 50 mcg PO DAILY 07/11/23 11/19/23 nifedipine 60 mg tablet,extended 60 mg PO DAILY 07/11/23 11/19/23 release ondansetron HCl 4 mg tablet 4 mg PO Q8H PRN Nausea 07/11/23 11/19/23 oxycodone-acetaminophen 7.5 mg-325 1 tablet PO Q4-6H PRN Pain 07/11/23 11/19/23 mg tablet polyethylene glycol 3350 17 gram 17 g PO BID PRN Constipation 07/11/23 11/19/23 oral powder packet (Miralax) sevelamer carbonate 800 mg tablet 2,400 mg PO TID 07/11/23 11/19/23 vortioxetine 20 mg tablet 20 mg PO DAILY 07/11/23 11/19/23 (Trintellix) Allergies Allergy/AdvReac Type Severity Reaction Status Date / Time adhesive tape Allergy Rash Verified 11/19/23 05:32 NSAIDS (Non-Steroidal Allergy Other Verified 11/19/23 05:32 Anti-Inflamma pickles AdvReac Swelling Uncoded 11/19/23 05:32 of Lip/Tongue/Throat Review of Systems Review of Systems: All systems reviewed & are unremarkable except as noted in HPI and below Constitutional: Constitutional: Reports no additional constitutional complaints ENT: Reports system reviewed and no additional complaints, except as documented Cardiovascular: Cardiovascular: Reports no additional cardiovascular complaints Respiratory: Respiratory: Reports no additional respiratory complaints Gastrointestinal: Gastrointestinal: Denies abdominal pain, Denies diarrhea, Reports nausea and Reports vomiting Musculoskeletal: Musculoskeletal: Denies back pain, Reports arthralgias and Denies joint swelling Comments: Swelling right lateral thigh. Neurologic: Reports headache(s), Denies focal weakness and Denies numbness PMFSH Past Medical History Medical History An
[2023-11-19 09:23] LABS: Basophils Percent Auto 0.2 % (0.2-1.2); Eosinophils Absolute Auto 0.1 K/mm3 (0-0.3); Eosinophils Percent Auto 1.7 % (0-4.4); Hemoglobin 8.8 g/dL (12.0-15.0); Immature Granulocyte Absolute 0.04 K/mm3 (0.00-0.031); Immature Granulocyte Percent A 0.5 % (0-0.5); Lymphocytes Absolute Auto 0.89 K/mm3 (0.9-3.2); Lymphocytes Percent Auto 10.7 % (18.3-44.2); Mean Corpuscular HGB Conc 31.4 g/dl (32-36); Mean Corpuscular Hemoglobin 30.8 pg (26-34); Mean Corpuscular Volume 97.9 fl (80-100); Mean Platelet Volume 8.9 fl (7.4-10.4); Monocytes Absolute Auto 0.8 K/mm3 (0.1-0.6); Monocytes Percent Auto 9.2 % (2.6-8.5); Neutrophils Absolute Auto 6.5 K/mm3 (1.3-6.7); Neutrophils Percent Auto 77.7 % (45.5-73.1); Platelet Count Result 150 k/mm3 (150-375); Red Blood Count 2.86 M/mm3 (4.2-5.4); Red Cell Distribution Width 14.2 % (11.5-14.5); White Blood Count 8.3 K/mm3 (4.5-10.0)
[2023-11-19 09:33] LABS: Alanine Aminotransferase 70 U/L (6-35); Albumin Level 3.9 g/dL (3.5-5.1); Alkaline Phosphatase 224 U/L (38-126); Anion Gap 13 mmol/L (4-12); Aspartate Amino Transferase 190 U/L (14-36); Bilirubin,Total 0.8 mg/dL (0.2-1.3); Blood Urea Nitrogen 59 mg/dL (7-17); Calcium 8.5 mg/dL (8.4-10.2); Carbon Dioxide 29 mmol/L (22-30); Chloride 97 mmol/L (98-107); Estimated CRCL calculation 7 ml/min; Estimated Glomerular Filt Rate 6; Glucose 160 mg/dL (65-110); Potassium 4.4 mmol/L (3.4-5.0); Sodium 139 mmol/L (137-145)
[2023-11-19 09:36] LABS: Partial Thromboplastin Time 26.3 Seconds (22.3-36.8)
--- NOTE | 2023-11-19 12:40 | ADMGEN ---
This patient, Yasmin Colbert, was admitted to [facility] Surg Room 323-01. Patient/family oriented to hospital policies and general routines including ID bracelet, bed and alarms, visiting hours, pain management, procedures, bathroom and other care routines, personal items, smoking policy, room service/diet, and visiting hours. Information on how to activate the Rapid Response Team has been discussed. Patient/Family are encouraged to report perceived risks to care and to ask questions if they do not understand what they are told or what they should do.
--- NOTE | 2023-11-19 12:54 | PM.IMHP ---
H&P: HPI History of Present Illness Date/Time: 11/19/23 12:54 Chief Complaint: Fall, Hip Pain Narrative: 68 y/o F presents here with right hip pain s/p ground-level fall with PMH of anxiety/depression, bipolar depression, breast cancer (s/p lumpectomy, right breast), CAD, ESRD on HD (MWF), gastric mass (benign), gastroparesis, KACIE, pAFib, tardive dyskinesia, and gastric ulcer. The patient presents here from home via EMS for further evaluation of right hip pain s/p GLF that occurred this morning. The patient reports that she slipped this morning and fell onto her right side. Believes when she fell she struck her right hip/right shoulder/and her head, -LOC, and was able to to ambulate post-fall but unable to bear weight. Pain worsens with ROM and is alleviated by rest/alleviating weight on extremity. No numbness or tingling in her lower extremities. After the fall had headache, light sensitivity, and mild nausea. Denies dizziness, blurred vision, or focal deficit. Initial VS at presentation: 98.2F, HR 57, RR 18, 180/65, and 99% on RA. ED workup showed: No leukocytosis, hemoglobin 8.8, creatinine 6.8 and GFR 6, glucose 160, AST 190, and ALT 70. XR hip/pelvis showed mild osteoarthritis. Head CT showed old lacunar infarct, stable mod cerebral white matter disease, and a stable 10 mm parotid mass. XR shoulder polyarticular osteoarthritis. Review of Systems Review of Systems: All systems reviewed & are unremarkable except as noted in HPI and below [facility] Past Medical History Medical History Anxiety and depression Bipolar depression Breast cancer Constipation Coronary artery disease End stage renal disease On hemodialysis with peritoneal dialysis catheter in place Esophageal ulcer Gastric mass Benign hyperplastic foveolar mucosa partially obstructing pylorus found on EGD in October 2022. Repeat EGD two weeks later showed gastritis and NERD but no mass. She was treated with PPI. 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 Pozo. The dialysis catheter had been [facility] placed and [facility] at [facility]. It was subsequently removed in mid October. S/P appendectomy (10/31/22) Dilated appendix, extensive adhesion lysis of adhesions around peritoneal dialysis catheter Status post cataract extraction of both eyes with insertion of intraocular lens Family History Family History Daughter Precancerous changes of the cervix Pancreatitis Daughter Colon cancer Precancerous changes of the cervix Unknown Diabetes mellitus Father Heart attack Sibling Pancreatitis Adry's disease Grandparent Heart attack Cerebrovascular accident Grandparent Cerebrovascular accident Social History Social History Social History: She lives with her of approximately 15 years. She has 4 children. She smoked about half a pack of cigarettes per day for about 14 years but quit smoking approximately 40 years ago. She denies any history of excessive alcohol use or illicit substance use Code status: Full code (h
--- NOTE | 2023-11-19 14:10 | PC.NURSE ---
To Dialysis per hospital bed.
--- NOTE | 2023-11-19 14:40 | PM.CNGS ---
Assessment and Plan Assessment and plan (1) Traumatic hematoma of right thigh: Code(s): S70.11XA - Contusion of right thigh, initial encounter Status: Acute Assessment and Plan: This is the reason for our consultation. The patient has a right lateral upper thigh hematoma following a ground level fall. She is not on any anticoagulation that would need to be held. The overlying skin appears healthy with no skin necrosis. We would recommend to continue supportive care for now with compression, pain control, and monitoring. Surgical management would only be recommended if this eventually became infected or if she developed overlying skin necrosis. Neither of these are present at this time. Will continue to monitor for now. (2) Ground-level fall: Code(s): W18.30XA - Fall on same level, unspecified, initial encounter Status: Acute (3) ESRD on hemodialysis: Code(s): N18.6 - End stage renal disease; Z99.2 - Dependence on renal dialysis Status: Acute (4) Paroxysmal A-fib: Code(s): I48.0 - Paroxysmal atrial fibrillation Status: Acute (5) Neuropathy: Code(s): G62.9 - Polyneuropathy, unspecified Status: Acute (6) Nausea and vomiting: Code(s): R11.2 - Nausea with vomiting, unspecified Status: Acute Plan I have discussed the patient's case and plan of care with Dr. Gonsaels. Thank you for allowing us to see the patient in consultation. History of Present Illness Consult details Consult date: 11/19/23 Reason for consult: other (Leg hematoma) Requesting physician: Dm Taveras MD Narrative: This is a 68 year-old woman with a history of breast cancer s/p lumpectomy, CAD, ESRD on HD, gastroparesis, paroxysmal AFib, and multiple other medical problems, who we have been asked to see in surgical consultation for a right leg hematoma. She presented to the ER today with right hip pain s/p ground-level fall last night. She was walking to the bathroom with the lights off and tripped over something on her floor. She was having a headache and right shoulder and right hip pain. She also has developed nausea and vomiting. She denies loss of consciousness. She reports bilateral tingling in her feet consistent with her chronic neuropathy, no acute changes in her lower extremities. In the ER, she was hemodynamically stable. Labs showed a hemoglobin of 8.8 with labs from earlier this year showing her to be anemic with hemoglobin of 9.2 in July. X-rays of her right hip/pelvis and shoulder were negative for acute findings. CT head showed no acute findings. She was found to have a right upper leg hematoma on exam. Our service was consulted for this. The patient is now seen in consultation. She is complaining of right hip pain with movement or when lying on her right side. She also has nausea that started on her drive over to the ER. She at first thought it was motion sickness, but it has persisted following Zofran administration. She is not vomiting, but still feels nauseous. She denies being on any anticoagulation and it is not listed in her home medication. It appears she was previously on Eliquis but this was stopped about a year ago when she was found to have an esophageal and gastric ulcer. Review of Systems Review of Systems: All systems reviewed & are unremarkable except as noted in HPI and below PMFSH Past Medical History Medical History Anxiety and depression Bipolar depression Breast cancer Constipation Coronary artery disease End stage renal disease On hemodialysis with peritoneal dialysis catheter in place Esophageal ulcer Gastric mass Benign hyperplastic foveolar mucosa partially obstructing pylorus found on EGD in October 2022. Repeat EGD two weeks later showed gastritis and NERD but no mass. She was treated with PPI. Gastric ulcer Gastroparesis History of esophageal ulcer Hypertension Iron deficiency anemia Neuropathy
--- NOTE | 2023-11-19 15:12 | PM.CNNEP ---
Assessment and Plan Assessment and plan (1) End stage renal disease: Code(s): N18.6 - End stage renal disease Status: Chronic (2) Hypertension: Qualifiers: Hypertension type: secondary to other renal disorders Qualified Code(s): I15.1 - Hypertension secondary to other renal disorders; N28.89 - Other specified disorders of kidney and ureter Code(s): I10 - Essential (primary) hypertension Status: Acute (3) Ground-level fall: Code(s): W18.30XA - Fall on same level, unspecified, initial encounter Status: Acute Plan Yasmin has end-stage renal disease. She dialyzes at [facility] under Dr. Bloom. she has been going to dialysis and has been doing well. He has been on treatments for about 6 years. The etiology of her end-stage renal disease is hypertension and diabetes. The patient fell. She has no fractures likely. She is in the hospital for observation and rehab As well as pain control. She is getting dialysis now. Because of the fall I am not using any heparin for the dialysis. I will take off just 1-2 L as would be her usual at the dialysis clinic. The patient has hypertension. She has not been on any blood pressure medicines lately. Her blood pressure is a little high now. Most likely this is from the pain. The patient has diabetes. Management of this will be per hospitalist the patient has anemia. I will order some Epogen the patient has renal osteodystrophy. Will check a phosphorus level in the morning. History of Present Illness Reason for Consult Consult date: 11/20/23 Chief Complaint Chief complaint: leg hematoma,esrd History of Present Illness Narrative: Yasmin is a very pleasant 68-year-old lady who has multiple medical problems including end-stage renal disease on dialysis Wednesdays and Fridays under Dr. Bloom at [facility], bipolar depression, breast cancer stage T 0, diabetes, diabetic neuropathy, hypertension, anxiety and depression, coronary artery disease with some undefined rhythm for which she is going to see a rhythm specialist down the line, tardive dyskinesia, anemia, renal osteodystrophy, gastroparesis, gastric mass. The patient was doing okay until this morning when her right leg locked in then she fell on her right side. She had significant pain. She put an ice pack on it and seemed better. Then she called her [employer] right and trying to get into the ride she had significant pain so came to the emergency room. In the ER she was evaluated. She was found to have the usual renal chemistries. She had a CT of the brain which showed old lacunar infarct and stable cerebral white matter disease and stable 10mm parotid mass. X-rays of the hip and pelvis and shoulder revealed no fracture. She is assumed to have a hematoma and so she was admitted for further evaluation. She was due for dialysis today so she is getting this now. She has no chest pain or shortness of breath. Does have some epigastric abdominal discomfort which is been going on for 6 weeks. She is going to talk with the hospitalist about this. No urinary issues. She does not smoke or drink Review of Systems Constitutional: Constitutional: Reports no additional constitutional complaints Eyes: Eyes: Reports no additional eye complaints ENT: Reports system reviewed and no additional complaints, except as documented Cardiovascular: Cardiovascular: Reports no additional cardiovascular complaints Respiratory: Respiratory: Reports no additional respiratory complaints Gastrointestinal: Gastrointestinal: Reports no additional gastrointestinal complaints Genitourinary: Genitourinary: Reports no additional female genitourinary complaints Musculoskeletal: Musculoskeletal: Reports no additional musculoskeletal complaints Integumentary/Breasts: Skin/Breast: Reports system reviewed and no additional complaints, except as docu Neurolo
[2023-11-19 15:27] LABS: Hepatitis B Surface Antigen Negative (Negative)
[2023-11-19 15:45] LABS: Hepatitis B Surface Anti Res Positive
[2023-11-19] MEDS: EPOETIN ALFA-EPBX 10,000 UNITS/ML VIAL 10000 UNITS IV PUSH (16:43)
--- NOTE | 2023-11-19 16:44 | PC.NURSE ---
Epoetin given per baller tender.
--- NOTE | 2023-11-19 18:41 | PC.NURSE ---
Returned from Dialysis per hospital bed.
[2023-11-19] MEDS: HYDROcodone/acetaminophen (*CRX) 5-325 MG TABLET 1 TAB PO (20:03)
[2023-11-20] MEDS: HYDROcodone/acetaminophen (*CRX) 5-325 MG TABLET 1 TAB PO ×2 (00:27→08:52)
[2023-11-20] MEDS: ONDANSETRON INJ 4 MG/2 ML VIAL IV PUSH ×3 (00:27→20:04)
[2023-11-20 00:45] VITALS: PULSE 76
[2023-11-20] MEDS: carvediloL 6.25 MG TABLET PO ×3 (00:45→20:04)
[2023-11-20] MEDS: DOCUSATE SODIUM 100 MG CAPSULE PO ×3 (00:45→20:04)
[2023-11-20 05:27] VITALS: BP 153/59; PULSE 67; RESP 12; TEMP 36.7; O2SAT 96
[2023-11-20] MEDS: LEVOTHYROXINE SODIUM 50 MCG TABLET PO (05:58)
[2023-11-20 07:06] LABS: Basophils Percent Auto 0.7 % (0.2-1.2); Eosinophils Absolute Auto 0.2 K/mm3 (0-0.3); Eosinophils Percent Auto 3.5 % (0-4.4); Hematocrit 29.4 % (37.0-47.0); Hemoglobin 8.9 g/dL (12.0-15.0); Immature Granulocyte Absolute 0.03 K/mm3 (0.00-0.031); Immature Granulocyte Percent A 0.6 % (0-0.5); Lymphocytes Absolute Auto 1.27 K/mm3 (0.9-3.2); Lymphocytes Percent Auto 23.4 % (18.3-44.2); Mean Corpuscular HGB Conc 30.3 g/dl (32-36); Mean Corpuscular Hemoglobin 30.2 pg (26-34); Mean Corpuscular Volume 99.7 fl (80-100); Mean Platelet Volume 9.4 fl (7.4-10.4); Monocytes Absolute Auto 0.6 K/mm3 (0.1-0.6); Monocytes Percent Auto 10.3 % (2.6-8.5); Neutrophils Absolute Auto 3.3 K/mm3 (1.3-6.7); Neutrophils Percent Auto 61.5 % (45.5-73.1); Platelet Count Result 169 k/mm3 (150-375); Red Blood Count 2.95 M/mm3 (4.2-5.4); Red Cell Distribution Width 14.2 % (11.5-14.5); White Blood Count 5.4 K/mm3 (4.5-10.0)
[2023-11-20 07:26] LABS: Alanine Aminotransferase 76 U/L (6-35); Albumin Level 3.8 g/dL (3.5-5.1); Alkaline Phosphatase 247 U/L (38-126); Anion Gap 8 mmol/L (4-12); Aspartate Amino Transferase 74 U/L (14-36); Bilirubin,Total 0.6 mg/dL (0.2-1.3); Blood Urea Nitrogen 27 mg/dL (7-17); Calcium 8.8 mg/dL (8.4-10.2); Carbon Dioxide 32 mmol/L (22-30); Chloride 99 mmol/L (98-107); Estimated CRCL calculation 11 ml/min; Estimated Glomerular Filt Rate 10; Glucose 126 mg/dL (65-110); Potassium 4.1 mmol/L (3.4-5.0); Sodium 139 mmol/L (137-145)
[2023-11-20] MEDS: FLUTICASONE PROPIONATE 0.05% NA SPR 16 GM BTL (*BKC) 1 SPRAY NASAL (08:42)
[2023-11-20] MEDS: SEVELAMER CARBONATE 800 MG TABLET 2400 MG PO ×3 (08:43→17:04)
[2023-11-20] MEDS: lamoTRIgine 50 MG TABLET 150 MG PO ×2 (08:43→20:04)
[2023-11-20] MEDS: hydrALAZINE HCL 50 MG TABLET 100 MG PO (08:43)
[2023-11-20 08:44] VITALS: PULSE 67
[2023-11-20] MEDS: CHOLECALCIFEROL 5,000 UNITS TABLET 5000 UNITS PO (08:44)
[2023-11-20] MEDS: FOLIC ACID 1 MG TABLET PO (08:44)
[2023-11-20] MEDS: ANASTROZOLE (*CHEMO) 1 MG TABLET PO (08:44)
[2023-11-20] MEDS: FUROSEMIDE 80 MG TABLET PO (08:44)
[2023-11-20] MEDS: NIFEdipine 30 MG TAB.ER.24 60 MG PO (08:45)
[2023-11-20] MEDS: LOSARTAN POTASSIUM 50 MG TABLET 100 MG PO (08:45)
[2023-11-20] MEDS: GENTAMICIN SULFATE 0.1% CR 15 GM TUBE 1 APPLIC TOPICAL (08:45)
[2023-11-20] MEDS: levETIRAcetam 250 MG TABLET 750 MG PO (08:45)
[2023-11-20] MEDS: rOPINIRole HCL 0.5 MG TABLET PO ×2 (08:45→17:04)
[2023-11-20] MEDS: PANTOPRAZOLE 40 MG TABLET PO (08:45)
--- NOTE | 2023-11-20 09:23 | PM.PNNEP ---
Progress Note: A&P Assessment and Plan (1) End stage renal disease: Code(s): N18.6 - End stage renal disease Status: Chronic Assessment and Plan: Yasmin has end-stage renal disease. She dialyzes at [facility] under Dr. Bloom. she has been going to dialysis and has been doing well. He has been on treatments for about 6 years. The etiology of her end-stage renal disease is hypertension and diabetes. She did well in dialysis yesterday. She is due for another treatment tomorrow. (2) Hypertension: Qualifiers: Hypertension type: secondary to other renal disorders Qualified Code(s): I15.1 - Hypertension secondary to other renal disorders; N28.89 - Other specified disorders of kidney and ureter Code(s): I10 - Essential (primary) hypertension Status: Acute Assessment and Plan: Systolic running 140-160. Possibly related to pain. Historically her blood pressure has been hard to control though. She is on carvedilol, hydralazine, losartan, and nifedipine. Heart rate running in the 50s and 60s. Will change losartan to irbesartan. (3) Ground-level fall: Code(s): W18.30XA - Fall on same level, unspecified, initial encounter Status: Acute Assessment and Plan: Surgery is following the hematoma (4) Anemia: Code(s): D64.9 - Anemia, unspecified Status: Acute Assessment and Plan: Hemoglobin is 8.9. She received EPO yesterday. (5) Renal osteodystrophy: Code(s): N25.0 - Renal osteodystrophy Status: Acute Assessment and Plan: Will check a phosphorus in the more Plan The patient fell. She has no fractures likely. She is in the hospital for observation and rehab As well as pain control. She is getting dialysis now. Because of the fall I am not using any heparin for the dialysis. I will take off just 1-2 L as would be her usual at the dialysis clinic. The patient has hypertension. She has not been on any blood pressure medicines lately. Her blood pressure is a little high now. Most likely this is from the pain. The patient has diabetes. Management of this will be per hospitalist the patient has anemia. I will order some Epogen the patient has renal osteodystrophy. Will check a phosphorus level in the morning. Subjective Date/time seen: 11/20/23 09:23 Interval history: Patient is feeling okay today. She did well in dialysis yesterday. She still has a lot of pain in the right hip area. She is eating some breakfast Review of Systems Cardiovascular: Cardiovascular: Reports no additional cardiovascular complaints Respiratory: Respiratory: Reports no additional respiratory complaints Gastrointestinal: Gastrointestinal: Reports no additional gastrointestinal complaints Genitourinary: Genitourinary: Reports no additional female genitourinary complaints Exam Narrative: WDWN in NAD skin no rash head ncat lungs clear cor reg no rub abd BS+ nontender and soft ext no edema. Objective Data Vital Signs Vital Signs: Vital Signs - 24 hr 11/19/23 11:22 11/19/23 12:25 11/19/23 12:58 Temperature Pulse Rate 59 L 64 Respiratory Rate 16 16 Blood Pressure 186/70 H 161/65 H Pulse Oximetry 96 93 Oxygen Delivery Room Air 11/19/23 14:20 11/19/23 14:37 11/19/23 15:00 Temperature 97.6 F Pulse Rate 61 58 L 57 L Respiratory Rate 18 Blood Pressure 206/88 H 180/75 H 173/76 H Pulse Oximetry Oxygen Delivery 11/19/23 15:15 11/19/23 15:30 11/19/23 15:45 Temperature Pulse Rate 63 60 60 Respiratory Rate Blood Pressure 186/85 H 171/75 H 146/70 H Pulse Oximetry Oxygen Delivery 11/19/23 16:00 11/19/23 16:15 11/19/23 16:30 Temperature Pulse Rate 64 62 60 Respiratory Rate Blood Pressure 133/69 142/65 H 160/69 H Pulse Oximetry Oxygen Delivery 11/19/23 16:45 11/19/23 17:00 11/19/23 17:15 Temperature Pulse
--- NOTE | 2023-11-20 10:41 | PM.PNGS ---
Progress Note: A&P Assessment and Plan (1) Traumatic hematoma of right thigh: Code(s): S70.11XA - Contusion of right thigh, initial encounter Status: Acute Assessment and Plan: The patient has a right lateral upper thigh hematoma following a ground level fall. The hematoma is unchanged today. Hgb 8.9, stable from yesterday. The overlying skin still appears healthy with no skin necrosis. Continue to monitor for now, no indication for any surgical management at this time. Plan I have discussed the patient's case and plan of care with Dr. Gonsales. Subjective Subjective Date/Time Seen: 11/20/23 10:41 Patient reports: no new complaints and feels better Interval history: Patient reports her headache, nausea, and vomiting have improved significantly. She was having some photosensitivity yesterday as well, which has resolved. Still having pain in her right hip and leg, but about the same as yesterday. Exam Const: General: comfortable and no acute distress Extrem: Other: Hematoma of the right lateral upper leg just below the greater trochanter. This appears unchanged today with still some overlying ecchymosis, but skin appears healthy with no areas of skin necrosis. Objective Data Vital Signs Vital Signs: Vital Signs - 24 hr 11/19/23 11:22 11/19/23 12:25 11/19/23 12:58 Temperature Pulse Rate 59 L 64 Respiratory Rate 16 16 Blood Pressure 186/70 H 161/65 H Pulse Oximetry 96 93 Oxygen Delivery Room Air 11/19/23 14:20 11/19/23 14:37 11/19/23 15:00 Temperature 97.6 F Pulse Rate 61 58 L 57 L Respiratory Rate 18 Blood Pressure 206/88 H 180/75 H 173/76 H Pulse Oximetry Oxygen Delivery 11/19/23 15:15 11/19/23 15:30 11/19/23 15:45 Temperature Pulse Rate 63 60 60 Respiratory Rate Blood Pressure 186/85 H 171/75 H 146/70 H Pulse Oximetry Oxygen Delivery 11/19/23 16:00 11/19/23 16:15 11/19/23 16:30 Temperature Pulse Rate 64 62 60 Respiratory Rate Blood Pressure 133/69 142/65 H 160/69 H Pulse Oximetry Oxygen Delivery 11/19/23 16:45 11/19/23 17:00 11/19/23 17:15 Temperature Pulse Rate 60 61 62 Respiratory Rate Blood Pressure 160/66 H 140/66 158/62 H Pulse Oximetry Oxygen Delivery 11/19/23 17:30 11/19/23 17:45 11/19/23 18:00 Temperature Pulse Rate 60 59 L 62 Respiratory Rate Blood Pressure 148/65 H 160/63 H 142/68 H Pulse Oximetry Oxygen Delivery 11/19/23 18:14 11/19/23 18:50 11/19/23 18:26 Temperature 97.5 F L 97.9 F Pulse Rate 60 58 L 62 Respiratory Rate 16 18 Blood Pressure 152/58 H 139/49 L 161/66 H Pulse Oximetry 99 Oxygen Delivery 11/19/23 21:06 11/19/23 20:55 11/20/23 00:45 Temperature 98.1 F Pulse Rate 60 60 76 Respiratory Rate 13 13 Blood Pressure 143/47 H Pulse Oximetry 99 99 Oxygen Delivery Room Air 11/20/23 05:27 11/20/23 08:44 11/20/23 08:00 Temperature 98.0 F Pulse Rate 67 67 Respiratory Rate 12 Blood Pressure 153/59 H Pulse Oximetry 96 Oxygen Delivery Room Air Intake/Output Intake/Output: Intake & Output 11/17/23 11/18/23 11/19/23 11/20/23 23:59 23:59 23:59 23:59 Intake Total 630 740 Output Total 2000 Balance -1370 740 Meds/Results Medications: Active Medications Generic Name Dose Route Start Last Admin Trade Name Freq PRN Reason Stop Dose Admin Acetaminophen 650 mg 11/19/23 11:46 Acetaminophen 325 Mg Tablet PO Q4H PRN Mild Pain (1-3) or Fever Hydrocodone Bitart/Acetaminophen 1 tab 11/19/23 11:46 11/20/23 08:52 Hydrocodone/Acetaminophen (*Crx) 5-325 Mg Tablet PO 1 tab Q4H PRN Administration Pain Rated 4-6 Albuterol 2 puff 11/20/23 00:20 Albuterol Sulfate (*Sp) Aerosol 1 Puff INHALATION Q6HRT PRN Shortness Of Breath Or Wheezing Allopurinol 100 mg 11/21/23 09:00 Allopurinol 100 Mg Tablet PO MoWeFr [facility] Alprazolam 0.5 mg 11/20/23 00:20 Alprazola
--- NOTE | 2023-11-20 13:57 | PM.IMPN ---
Progress Note: A&P Assessment and Plan (1) Ground-level fall: Code(s): W18.30XA - Fall on same level, unspecified, initial encounter Status: Acute Assessment and Plan: - trauma workup negative (head CT, hip XR, shoulder XR) - hematoma to right hip, General Surgery consulted and recommends continue supportive care for now with compression, pain control, and monitoring. - monitor H/H - neurovasc checks Q6H - PT and OT evaluation and treat - Pt declining SNF placement at this time. Discussed the dangers of returning home in her current condition. Discussed this with CC. (2) Concussion: Qualifiers: Encounter type: initial encounter Loss of consciousness presence/duration: without LOC Qualified Code(s): S06.0X0A - Concussion without loss of consciousness, initial encounter Code(s): S06.0XAA - Concussion with loss of consciousness status unknown, initial encounter Status: Acute Assessment and Plan: - Head CT negative for acute findings - reporting SMITH, light sensitivity, and nausea post-fall. reports she feels like her thought process and speech is slowed. no focal deficits on exam. - educated patient on resting and avoidance of loud sounds/electronics/overstimulation - neurochecks Q6H (3) ESRD on hemodialysis: Code(s): N18.6 - End stage renal disease; Z99.2 - Dependence on renal dialysis Status: Acute Assessment and Plan: - hx of ESRD on HD - nephrology consult for HD - dialysis: M/W/F - trend renal function and electrolytes, correct as needed (4) Hypertension: Qualifiers: Hypertension type: secondary to other renal disorders Qualified Code(s): I15.1 - Hypertension secondary to other renal disorders; N28.89 - Other specified disorders of kidney and ureter Code(s): I10 - Essential (primary) hypertension Status: Acute Assessment and Plan: - continue home medications: carvedilol 6.25 mg b.i.d., hydralazine 100 mg daily, losartan 100 mg daily, nifedipine 60 mg daily - monitor Subjective Date/time seen: 11/20/23 13:57 Interval history: patient is still having quite a bit of pain. Discussed discharge plans with the patient. She is not wanting to go to SNF at this time. Explained to her that that may be her only option and she is very hesitant to go to a penitentiary rehab facility. I discussed this with care coordination and they are going to look into it and discussed this with the patient. Exam Narrative: GENERAL: Comfortable, no acute distress HENMT: dry mucous membranes EYES: EOM intact b/l NECK: no lymphadenopathy RESPIRATORY: clear to auscultation, no increased respiratory effort CARDIO: Regular rate and rhythm, murmur present GI: soft, nontender, bowel sounds present SKIN/EXTREMITIES: Hematoma over the right hip, non necrotic NEURO: PROM intact, answers questions appropriately, A&O x4 Objective Data Vital Signs Vital Signs: Vital Signs - 24 hr 11/19/23 14:20 11/19/23 14:37 11/19/23 15:00 Temperature 97.6 F Pulse Rate 61 58 L 57 L Respiratory Rate 18 Blood Pressure 206/88 H 180/75 H 173/76 H Pulse Oximetry Oxygen Delivery 11/19/23 15:15 11/19/23 15:30 11/19/23 15:45 Temperature Pulse Rate 63 60 60 Respiratory Rate Blood Pressure 186/85 H 171/75 H 146/70 H Pulse Oximetry Oxygen Delivery 11/19/23 16:00 11/19/23 16:15 11/19/23 16:30 Temperature Pulse Rate 64 62 60 Respiratory Rate Blood Pressure 133/69 142/65 H 160/69 H Pulse Oximetry Oxygen Delivery 11/19/23 16:45 11/19/23 17:00 11/19/23 17:15 Temperature Pulse Rate 60 61 62 Respiratory Rate Blood Pressure 160/66 H 140/66 158/62 H Pulse Oximetry Oxygen Delivery 11/19/23 17:30 11/19/23 17:45 11/19/23 18:00 Temperature Pulse Rate 60 59 L 62 Respiratory Rate Blood Pressure 148/65 H 160/63 H 142/68 H Pulse Oximetry Oxygen Delivery
[2023-11-20 14:00] VITALS: BP 122/48; PULSE 67; RESP 14; TEMP 37.1; O2SAT 98
[2023-11-20 20:04] VITALS: PULSE 73
[2023-11-20] MEDS: MONTELUKAST SODIUM 10 MG TABLET PO (20:04)
[2023-11-20] MEDS: ATORVASTATIN 40 MG TABLET PO (20:04)
[2023-11-20] MEDS: rOPINIRole HCL 0.5 MG TABLET 1.5 MG PO (20:04)
[2023-11-20] MEDS: oxyCODONE/ACETAMINOPHEN (*CRX) 5-325 MG TABLET 1 TABLET PO (20:05)
[2023-11-20] MEDS: oxyCODONE HCL (*CRX) 2.5 MG TAB IR PO (20:05)
[2023-11-20 20:15] VITALS: BP 134/58; PULSE 57; RESP 16; TEMP 36.3; O2SAT 100
[2023-11-21] VITALS (22 sets, daily range): BP systolic 117–157; BP diastolic 41–62; PULSE 61–71; RESP 16–20; TEMP 36.1–37; O2SAT 94–98
[2023-11-21] MEDS: LEVOTHYROXINE SODIUM 50 MCG TABLET PO (06:36)
[2023-11-21] MEDS: oxyCODONE HCL (*CRX) 2.5 MG TAB IR PO (06:36)
[2023-11-21] MEDS: oxyCODONE/ACETAMINOPHEN (*CRX) 5-325 MG TABLET 1 TABLET PO ×2 (06:36→21:29)
[2023-11-21] MEDS: ONDANSETRON INJ 4 MG/2 ML VIAL IV PUSH (06:37)
[2023-11-21 06:55] LABS: Albumin Level 3.8 g/dL (3.5-5.1); Anion Gap 11 mmol/L (4-12); Blood Urea Nitrogen 48 mg/dL (7-17); Calcium 8.6 mg/dL (8.4-10.2); Carbon Dioxide 30 mmol/L (22-30); Chloride 95 mmol/L (98-107); Estimated CRCL calculation 7 ml/min; Estimated Glomerular Filt Rate 6; Glucose 144 mg/dL (65-110); Phosphorus 8.4 mg/dL (2.5-4.5); Potassium 4.8 mmol/L (3.4-5.0); Sodium 136 mmol/L (137-145)
[2023-11-21] MEDS: EPOETIN ALFA-EPBX 10,000 UNITS/ML VIAL 10000 UNITS IV PUSH (10:23)
--- NOTE | 2023-11-21 13:01 | PM.PNNEP ---
Progress Note: A&P Assessment and Plan (1) End stage renal disease: Code(s): N18.6 - End stage renal disease Status: Chronic Assessment and Plan: Yasmin has end-stage renal disease. She dialyzes at [facility] under Dr. Blomo. volume status looks good BP is good. electrolytes okay (2) Hypertension: Qualifiers: Hypertension type: secondary to other renal disorders Qualified Code(s): I15.1 - Hypertension secondary to other renal disorders; N28.89 - Other specified disorders of kidney and ureter Code(s): I10 - Essential (primary) hypertension Status: Acute Assessment and Plan: Systolic running 130 to 140 Possibly related to pain. on irbesartan now (3) Ground-level fall: Code(s): W18.30XA - Fall on same level, unspecified, initial encounter Status: Acute Assessment and Plan: Surgery is following the hematoma (4) Anemia: Code(s): D64.9 - Anemia, unspecified Status: Acute Assessment and Plan: Hemoglobin is 8.9 last check. She is getting epo with dialysis. (5) Renal osteodystrophy: Code(s): N25.0 - Renal osteodystrophy Status: Acute Assessment and Plan: Will check a phosphorus in the more Plan . Subjective Date/time seen: 11/21/23 13:01 Interval history: alert. itches. no cp or sob on HD nikki it well. seen at 1pm bp doing okay Exam Narrative: WDWN in NAD skin no rash head ncat lungs clear cor reg no rub abd BS+ nontender and soft ext no edema. Objective Data Vital Signs Vital Signs: Vital Signs - 24 hr 11/20/23 14:00 11/20/23 20:04 11/20/23 20:15 Temperature 98.7 F 97.3 F L Pulse Rate 67 73 57 L Respiratory Rate 14 16 Blood Pressure 122/48 L 134/58 L Pulse Oximetry 98 100 Oxygen Delivery 11/20/23 20:00 11/21/23 05:40 11/21/23 09:33 Temperature 97.1 F L 98.2 F Pulse Rate 61 63 Respiratory Rate 20 18 Blood Pressure 155/60 H 141/53 H Pulse Oximetry 98 94 Oxygen Delivery Room Air 11/21/23 09:43 11/21/23 10:00 11/21/23 10:15 Temperature Pulse Rate 63 65 64 Respiratory Rate Blood Pressure 154/61 H 157/62 H 149/61 H Pulse Oximetry Oxygen Delivery 11/21/23 10:30 11/21/23 10:45 11/21/23 11:00 Temperature Pulse Rate 65 63 67 Respiratory Rate Blood Pressure 149/58 H 149/58 H 139/58 L Pulse Oximetry Oxygen Delivery 11/21/23 11:30 11/21/23 11:45 11/21/23 12:00 Temperature Pulse Rate 65 68 65 Respiratory Rate Blood Pressure 132/52 L 125/57 L 130/54 L Pulse Oximetry Oxygen Delivery 11/21/23 08:00 11/21/23 11:15 Temperature Pulse Rate 65 Respiratory Rate Blood Pressure 141/53 H Pulse Oximetry Oxygen Delivery Room Air Intake/Output Intake/Output: Intake & Output 11/18/23 11/19/23 11/20/23 11/21/23 23:59 23:59 23:59 23:59 Intake Total 630 1924 500 Output Total 1999 250 Balance -1370 1924 250 Meds/Results Medications: Active Medications Generic Name Dose Route Start Last Admin Trade Name Freq PRN Reason Stop Dose Admin Acetaminophen 650 mg 11/19/23 11:46 Acetaminophen 325 Mg Tablet PO Q4H PRN Mild Pain (1-3) or Fever Hydrocodone Bitart/Acetaminophen 1 tab 11/19/23 11:46 11/20/23 08:52 Hydrocodone/Acetaminophen (*Crx) 5-325 Mg Tablet PO 1 tab Q4H PRN Administration Pain Rated 4-6 Albuterol 2 puff 11/20/23 00:20 Albuterol Sulfate (*Sp) Aerosol 1 Puff INHALATION Q6HRT PRN Shortness Of Breath Or Wheezing Allopurinol 100 mg 11/21/23 09:00 Allopurinol 100 Mg Tablet PO MoWeFr [facility] Alprazolam 0.5 mg 11/20/23 00:20 Alprazolam (*Crx) 0.5 Mg Tablet PO QID PRN Anxiety Amantadine HCl 100 mg 11/24/23 09:00 Amantadine Hcl 100 Mg Capsule PO WEEKLY [facility] Anastrozole 1 mg 11/20/23 09:00 11/20/23 08:44 Anastrozole (*Chemo) 1 Mg Tablet PO 12/20/23 08:59 1 mg LIV
--- NOTE | 2023-11-21 15:13 | PM.IMPN ---
Progress Note: A&P Assessment and Plan (1) Ground-level fall: Code(s): W18.30XA - Fall on same level, unspecified, initial encounter Status: Acute Assessment and Plan: - trauma workup negative (head CT, hip XR, shoulder XR) - hematoma to right hip, General Surgery consulted and recommends continue supportive care for now with compression, pain control, and monitoring. - monitor H/H - neurovasc checks Q6H - PT and OT evaluation and treat - Plan on discharge with (2) Concussion: Qualifiers: Encounter type: initial encounter Loss of consciousness presence/duration: without LOC Qualified Code(s): S06.0X0A - Concussion without loss of consciousness, initial encounter Code(s): S06.0XAA - Concussion with loss of consciousness status unknown, initial encounter Status: Acute Assessment and Plan: - Head CT negative for acute findings - reporting SMITH, light sensitivity, and nausea post-fall. reports she feels like her thought process and speech is slowed. no focal deficits on exam. - educated patient on resting and avoidance of loud sounds/electronics/overstimulation - neurochecks Q6H (3) ESRD on hemodialysis: Code(s): N18.6 - End stage renal disease; Z99.2 - Dependence on renal dialysis Status: Acute Assessment and Plan: - hx of ESRD on HD - nephrology consult for HD - dialysis: M/W/F - trend renal function and electrolytes, correct as needed (4) Hypertension: Qualifiers: Hypertension type: secondary to other renal disorders Qualified Code(s): I15.1 - Hypertension secondary to other renal disorders; N28.89 - Other specified disorders of kidney and ureter Code(s): I10 - Essential (primary) hypertension Status: Acute Assessment and Plan: - continue home medications: carvedilol 6.25 mg b.i.d., hydralazine 100 mg daily, losartan 100 mg daily, nifedipine 60 mg daily - monitor Subjective Date/time seen: 11/21/23 15:13 Interval history: patient doing well working with therapy. Patient refusing SNF placement. Discussed with power of civil attorney and the plan is to discharge patient home tomorrow with home health after working with therapy. Exam Narrative: GENERAL: Comfortable, no acute distress HENMT: dry mucous membranes EYES: EOM intact b/l NECK: no lymphadenopathy RESPIRATORY: clear to auscultation, no increased respiratory effort CARDIO: Regular rate and rhythm, murmur present GI: soft, nontender, bowel sounds present SKIN/EXTREMITIES: Hematoma over the right hip, non necrotic NEURO: PROM intact, answers questions appropriately, A&O x4 Objective Data Vital Signs Vital Signs: Vital Signs - 24 hr 11/20/23 20:04 11/20/23 20:15 11/20/23 20:00 Temperature 97.3 F L Pulse Rate 73 57 L Respiratory Rate 16 Blood Pressure 134/58 L Pulse Oximetry 100 Oxygen Delivery Room Air 11/21/23 05:40 11/21/23 09:33 11/21/23 09:43 Temperature 97.1 F L 98.2 F Pulse Rate 61 63 63 Respiratory Rate 20 18 Blood Pressure 155/60 H 141/53 H 154/61 H Pulse Oximetry 98 94 Oxygen Delivery 11/21/23 10:00 11/21/23 10:15 11/21/23 10:30 Temperature Pulse Rate 65 64 65 Respiratory Rate Blood Pressure 157/62 H 149/61 H 149/58 H Pulse Oximetry Oxygen Delivery 11/21/23 10:45 11/21/23 11:00 11/21/23 11:30 Temperature Pulse Rate 63 67 65 Respiratory Rate Blood Pressure 149/58 H 139/58 L 132/52 L Pulse Oximetry Oxygen Delivery 11/21/23 11:45 11/21/23 12:00 11/21/23 08:00 Temperature Pulse Rate 68 65 Respiratory Rate Blood Pressure 125/57 L 130/54 L Pulse Oximetry Oxygen Delivery Room Air 11/21/23 11:15 11/21/23 12:15 11/21/23 13:15 Temperature Pulse Rate 65 66 66 Respiratory Rate Blood Pressure 141/53 H 123/50 L 124/50 L Pulse Oximetry Oxygen Delivery 11/21/23 13:16 11/21/23 13:30 11/21/23 12:30 Temperature 9
--- NOTE | 2023-11-21 16:26 | PCPTNOTE ---
PT attempted eval but pt reported dizziness and exhaustion, had dialysis at 8-12noon today.
[2023-11-21] MEDS: rOPINIRole HCL 0.5 MG TABLET PO (17:29)
[2023-11-21] MEDS: FUROSEMIDE 80 MG TABLET PO (17:30)
[2023-11-21] MEDS: GENTAMICIN SULFATE 0.1% CR 15 GM TUBE 1 APPLIC TOPICAL (17:32)
[2023-11-21] MEDS: levETIRAcetam 250 MG TABLET 750 MG PO (17:33)
[2023-11-21] MEDS: lamoTRIgine 50 MG TABLET 150 MG PO (20:55)
[2023-11-21] MEDS: carvediloL 6.25 MG TABLET PO (20:55)
[2023-11-21] MEDS: MONTELUKAST SODIUM 10 MG TABLET PO (20:55)
[2023-11-21] MEDS: rOPINIRole HCL 0.5 MG TABLET 1.5 MG PO (20:55)
[2023-11-21] MEDS: ATORVASTATIN 40 MG TABLET PO (20:55)
[2023-11-21] MEDS: DOCUSATE SODIUM 100 MG CAPSULE PO (20:56)
[2023-11-21] MEDS: ONDANSETRON HCL ODT 4 MG TABLET PO (21:29)
[2023-11-22 05:56] LABS: Hematocrit 28.7 % (37.0-47.0); Mean Corpuscular HGB Conc 31.4 g/dl (32-36); Mean Corpuscular Hemoglobin 30.9 pg (26-34); Mean Corpuscular Volume 98.6 fl (80-100); Mean Platelet Volume 9.2 fl (7.4-10.4); Platelet Count Result 156 k/mm3 (150-375); Red Blood Count 2.91 M/mm3 (4.2-5.4); Red Cell Distribution Width 14.4 % (11.5-14.5); White Blood Count 7.1 K/mm3 (4.5-10.0)
[2023-11-22 06:06] LABS: Albumin Level 3.7 g/dL (3.5-5.1); Anion Gap 10 mmol/L (4-12); Blood Urea Nitrogen 34 mg/dL (7-17); Calcium 9.2 mg/dL (8.4-10.2); Carbon Dioxide 31 mmol/L (22-30); Chloride 96 mmol/L (98-107); Estimated CRCL calculation 11 ml/min; Estimated Glomerular Filt Rate 9; Glucose 154 mg/dL (65-110); Phosphorus 5.8 mg/dL (2.5-4.5); Potassium 4.5 mmol/L (3.4-5.0); Sodium 137 mmol/L (137-145)
[2023-11-22 06:10] VITALS: BP 165/59; PULSE 56; RESP 18; TEMP 36.4; O2SAT 97
[2023-11-22] MEDS: LEVOTHYROXINE SODIUM 50 MCG TABLET PO (06:20)
[2023-11-22] MEDS: ANASTROZOLE (*CHEMO) 1 MG TABLET PO (08:19)
[2023-11-22] MEDS: FUROSEMIDE 80 MG TABLET PO (08:20)
[2023-11-22] MEDS: DOCUSATE SODIUM 100 MG CAPSULE PO (08:20)
[2023-11-22] MEDS: PANTOPRAZOLE 40 MG TABLET PO (08:20)
[2023-11-22] MEDS: rOPINIRole HCL 0.5 MG TABLET PO (08:21)
[2023-11-22] MEDS: SEVELAMER CARBONATE 800 MG TABLET 2400 MG PO (08:21)
[2023-11-22 08:22] VITALS: PULSE 74
[2023-11-22] MEDS: CHOLECALCIFEROL 5,000 UNITS TABLET 5000 UNITS PO (08:22)
[2023-11-22] MEDS: carvediloL 6.25 MG TABLET PO (08:22)
[2023-11-22] MEDS: lamoTRIgine 50 MG TABLET 150 MG PO (08:22)
[2023-11-22] MEDS: levETIRAcetam 250 MG TABLET 750 MG PO (08:22)
[2023-11-22] MEDS: FOLIC ACID 1 MG TABLET PO (08:22)
[2023-11-22] MEDS: GENTAMICIN SULFATE 0.1% CR 15 GM TUBE 1 APPLIC TOPICAL (08:23)
[2023-11-22] MEDS: FLUTICASONE PROPIONATE 0.05% NA SPR 16 GM BTL (*BKC) 1 SPRAY NASAL (08:23)
--- NOTE | 2023-11-22 11:26 | PM.PNNEP ---
Progress Note: A&P Assessment and Plan (1) End stage renal disease: Code(s): N18.6 - End stage renal disease Status: Chronic Assessment and Plan: Yasmin has end-stage renal disease. She dialyzes at [facility] under Dr. Bloom. volume status looks well compensated Blood pressure is doing well Potassium, bicarbonate, and BUN are all under good control for a dialysis patient. (2) Hypertension: Qualifiers: Hypertension type: secondary to other renal disorders Qualified Code(s): I15.1 - Hypertension secondary to other renal disorders; N28.89 - Other specified disorders of kidney and ureter Code(s): I10 - Essential (primary) hypertension Status: Acute Assessment and Plan: Systolic running 117-160. 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 She was on this at home as well. She has both oral and IV Zofran ordered. (4) Anemia: Code(s): D64.9 - Anemia, unspecified Status: Acute Assessment and Plan: Hemoglobin is 9 today. Will give more EPO on Friday (5) Renal osteodystrophy: Code(s): N25.0 - Renal osteodystrophy Status: Acute Assessment and Plan: Will check a phosphorus in the more Plan . Subjective Date/time seen: 11/22/23 11:26 Interval history: Patient does not feel very well. She still has a lot of pain can barely walk to the end of the bed much less to the bathroom. Physical therapy and occupational therapy working with the patient. She is intermittently nauseated. Oral Zofran 6 to the back of her throat because of the powdery texture of the pill. Asking for IV Zofran instead. Dialysis went well yesterday. Exam Narrative: WDWN in NAD skin no rash or subQ nodules head ncat lungs clear cor reg no rub or gallop abd BS+ nontender and soft ext no edema. Objective Data Vital Signs Vital Signs: Vital Signs - 24 hr 11/21/23 11:30 11/21/23 11:45 11/21/23 12:00 Temperature Pulse Rate 65 68 65 Respiratory Rate Blood Pressure 132/52 L 125/57 L 130/54 L Pulse Oximetry Oxygen Delivery 11/21/23 12:15 11/21/23 13:15 11/21/23 13:16 Temperature Pulse Rate 66 66 65 Respiratory Rate Blood Pressure 123/50 L 124/50 L 129/51 L Pulse Oximetry Oxygen Delivery 11/21/23 13:30 11/21/23 12:30 11/21/23 12:45 Temperature 98.2 F Pulse Rate 64 66 68 Respiratory Rate 16 Blood Pressure 128/52 L 133/56 L 117/51 L Pulse Oximetry 97 Oxygen Delivery 11/21/23 13:00 11/21/23 14:00 11/21/23 20:55 Temperature 98.4 F Pulse Rate 68 67 71 Respiratory Rate 16 Blood Pressure 122/51 L 117/41 L Pulse Oximetry 96 Oxygen Delivery 11/21/23 20:00 11/21/23 22:00 11/22/23 06:10 Temperature 96.9 F L 97.5 F L Pulse Rate 61 56 L Respiratory Rate 20 18 Blood Pressure 122/45 L 165/59 H Pulse Oximetry 95 97 Oxygen Delivery Room Air 11/22/23 08:22 11/22/23 08:57 11/22/23 08:00 Temperature Pulse Rate 74 Respiratory Rate Blood Pressure Pulse Oximetry Oxygen Delivery Room Air Room Air Intake/Output Intake/Output: Intake & Output 11/19/23 11/20/23 11/21/23 11/22/23 23:59 23:59 23:59 23:59 Intake Total 630 5 1222 812 Output Total 1999 1928 Wlfaqyr -1370 1924 -705 812 Meds/Results Medications: Active Medications Generic Name Dose Route Start Last Admin Trade Name Freq PRN Reason Stop Dose Admin Acetaminophen 650 mg 11/19/23 11:46 Acetaminophen 325 Mg Tablet PO Q4H PRN Mild Pain (1-3) or Fever Hydrocodone Bitart/Acetaminophen 1 tab 11/19/23 11:46 11/20/23 08:52
--- NOTE | 2023-11-22 11:59 | PM.DS ---
DS: Admitting Diagnosis Discharge Date 11/22/23 Admitting Diagnosis Fall DS: Discharge Diagnosis Discharge Diagnosis (1) Ground-level fall: Code(s): W18.30XA - Fall on same level, unspecified, initial encounter Status: Acute (2) Concussion: Qualifiers: Encounter type: initial encounter Loss of consciousness presence/duration: without LOC Qualified Code(s): S06.0X0A - Concussion without loss of consciousness, initial encounter Code(s): S06.0XAA - Concussion with loss of consciousness status unknown, initial encounter Status: Acute (3) ESRD on hemodialysis: Code(s): N18.6 - End stage renal disease; Z99.2 - Dependence on renal dialysis Status: Acute (4) Hypertension: Qualifiers: Hypertension type: secondary to other renal disorders Qualified Code(s): I15.1 - Hypertension secondary to other renal disorders; N28.89 - Other specified disorders of kidney and ureter Code(s): I10 - Essential (primary) hypertension Status: Acute DS: Summary Hospital Course Hospital Course: 68 y/o F presents here with right hip pain s/p ground-level fall with PMH of anxiety/depression, bipolar depression, breast cancer (s/p lumpectomy, right breast), CAD, ESRD on HD (MWF), gastric mass (benign), gastroparesis, KACIE, pAFib, tardive dyskinesia, and gastric ulcer. The patient presents on 11/19/23 for further evaluation of right hip pain s/p GLF. Believes when she fell she struck her right hip/right shoulder/and her head, -LOC, and was able to to ambulate post-fall but unable to bear weight. ED workup showed: No leukocytosis, hemoglobin 8.8, creatinine 6.8 and GFR 6, glucose 160, AST 190, and ALT 70. XR hip/pelvis showed mild osteoarthritis. Head CT showed old lacunar infarct, stable mod cerebral white matter disease, and a stable 10 mm parotid mass. XR shoulder polyarticular osteoarthritis. patient admitted for PT and OT and placement. Patient declined placement unless it was TABBY. Patient did not qualify for TABBY. PT and OT worked with the patient. It was discussed that patient should not go home unless she has a 247 caregiver. Both the patient and her daughters assured me that she was going to now have a caregiver from this point forward. Care coordination set up home health for the patient. Her labs and vital signs are stable she is medically clear for discharge at this time. Time Spent with Patient Time attestation: Total time spent providing and/or coordinating discharge services: Exam Narrative: GENERAL: Comfortable, no acute distress HENMT: dry mucous membranes EYES: EOM intact b/l NECK: no lymphadenopathy RESPIRATORY: clear to auscultation, no increased respiratory effort CARDIO: Regular rate and rhythm, murmur present GI: soft, nontender, bowel sounds present SKIN/EXTREMITIES: Hematoma over the right hip, non necrotic NEURO: PROM intact, answers questions appropriately, A&O x4 DS: Data Data Completed and Pending Labs on day of discharge: Labs from last 24 hours 11/22/23 05:29 WBC 7.1 RBC 2.91 L Hgb 9.0 L Hct 28.7 L MCV 98.6 MCH 30.9 MCHC 31.4 L RDW 14.4 Plt Count 156 MPV 9.2 Sodium 137 Potassium 4.5 Chloride 96 L Carbon Dioxide 31 H Anion Gap 10 BUN 34 H D Creatinine 4.60 H Estim Creat Clear Calc 11 Estimated GFR 9 L Glucose 154 H Calcium 9.2 Phosphorus 5.8 H Albumin 3.7 Preliminary micro results at discharge 11/19/23 14:58 Blood Culture - Preliminary Blood 11/19/23 13:30 Blood Culture - Preliminary Blood Discharge Plan Discharge Consulting providers: Vishal Kim; Kai Gonsales Discharging Clinician: Lucy Guerrero Patient Disposition: Home Health Service Activity: no preference Discharge Instructions: Patient may discharge from surgery standpoint when medically stable. Patient to avoid further trauma to the right upper thigh region. Patient stay off any blood thinners fo
[2023-11-22] MEDS: ONDANSETRON INJ 4 MG/2 ML VIAL IV PUSH (14:00)
[2023-11-22] MEDS: oxyCODONE/ACETAMINOPHEN (*CRX) 5-325 MG TABLET 1 TABLET PO (14:00)
== END 2023-11-22 14:40 | disposition home health service (06) ==
LOC: ANHED 07:31 → ANH3MEDSUR 18:35
PROVIDERS: Internal Medicine Nephrology; Student in an Organized Health Care Education/Training Program; Admitting Provider General Practice; Emergency Provider Emergency Medicine; PCP Internal Medicine; Visit Provider General Practice
DX: S70.11XA Contusion of right thigh, initial encounter (principal); S06.0XAA Concussion with loss of consciousness status unknown, initial encounter; W18.30XA Fall on same level, unspecified, initial encounter; R11.2 Nausea with vomiting, unspecified; I12.0 Hypertensive chronic kidney disease with stage 5 chronic kidney disease or end stage renal disease; E11.22 Type 2 diabetes mellitus with diabetic chronic kidney disease; N18.6 End stage renal disease; Z99.2 Dependence on renal dialysis; E11.40 Type 2 diabetes mellitus with diabetic neuropathy, unspecified; D50.9 Iron deficiency anemia, unspecified; D63.1 Anemia in chronic kidney disease; N25.0 Renal osteodystrophy; K31.89 Other diseases of stomach and duodenum; F31.9 Bipolar disorder, unspecified; F41.9 Anxiety disorder, unspecified; I25.10 Atherosclerotic heart disease of native coronary artery without angina pectoris; G47.33 Obstructive sleep apnea (adult) (pediatric); I48.0 Paroxysmal atrial fibrillation; G24.01 Drug induced subacute dyskinesia; Z85.3 Personal history of malignant neoplasm of breast; Z87.891 Personal history of nicotine dependence; Z79.51 Long term (current) use of inhaled steroids; Z79.811 Long term (current) use of aromatase inhibitors; Z79.4 Long term (current) use of insulin; Z79.891 Long term (current) use of opiate analgesic
CPT/HCPCS: 36415; 70450; 73030; 73502; 80053; 80069; 85025; 85027; 85610; 85730; 86706; 87040; 87340; 96374; 96375; 96376; 97161; 97166; 99285; A9270; G0257; G0378; J2270; J2405; J7030; Q5105

== ENCOUNTER 2024-01-01 15:30 | Emergency (ER) | payer MEDICARE, MEDICAID, SELFPAY ==
[2024-01-01] VITALS (55 sets, daily range): BP systolic 152–204; BP diastolic 66–124; PULSE 67–84; RESP 12–27; TEMP 36.3–37; O2SAT 86–100
--- NOTE | ~2024-01-01 | CT_ITS ---
EXAMINATION: CT brain wo con DATE: 01/01/2024 15:38 INDICATION: Right-sided hemiparesis and facial droop TECHNIQUE: Computed tomography (CT) of the head was performed without intravenous contrast. Sagittal and coronal reconstructions were performed. The mA was adjusted according to patient size. Iterative reconstruction technique was employed. The dose-length product was 605.33 mGy-cm. COMPARISON: head CT dated 11/19/2023 FINDINGS: Unchanged small old lacunar infarct at the left thalamus. No acute intracranial hemorrhage, acute inf arction or abnormal extra axial fluid collection. There is moderate scattered white matter hypoattenu ation consistent with chronic small vessel ischemic disease. Ventricles are normal and symmetric. No mass/mass effect. Intracranial calcified cerebral atherosclerosis is noted. The orbits, paranasal si nuses and mastoid air cells are normal. IMPRESSION: 1. Small old lacunar infarct at the left thalamus. No acute intracranial process. 2. Stable moderate scattered nonspecific cerebral white matter hypoattenuation consistent with chroni c small vessel ischemic disease. Reviewed, dictated and finalized at location A. IMPRESSION: 1. Small old lacunar infarct at the left thalamus. No acute intracranial proces s. 2. Stable moderate scattered nonspecific cerebral white matter hypoattenuation consistent with chronic small vessel ischemic disease.
--- NOTE | ~2024-01-01 | XR_ITS ---
EXAMINATION: XR chest 1V portable DATE: 01/01/2024 16:23 INDICATION: Cerebrovascular accident. TECHNIQUE: A single frontal view of the chest was obtained. COMPARISON: Chest single view 07/10/2023 FINDINGS: There is no pneumonia, pleural effusion, or pneumothorax. The heart size is normal. There i s an electronic implant overlying left chest. IMPRESSION: 1. No acute cardiopulmonary disease. Reviewed, dictated and finalized at location A.
--- NOTE | ~2024-01-01 | CT_ITS ---
EXAMINATION: CTA BRAIN/CAROTID DATE: 01/01/2024 15:52 INDICATION: Facial droop and right-sided hemiparesis TECHNIQUE: Computed tomographic angiography (CTA) of the head and neck was performed with 100 mL Omni paque-350 intravenous contrast. Multiplanar reconstructions and maximum intensity projection 3D-recon structions of the carotid arteries and of the intracranial arteries were created by the technologist on a separate workstation. Automated exposure control and iterative reconstruction technique were emp loyed.The dose-length product was 937.55 mGy-cm. COMPARISON: Head CT dated 01/01/2024 FINDINGS: Carotid arteries: Nonhemodynamically significant atherosclerotic calcification is at the normal caliber thoracic aorta and origins of the great vessels arising from the arch. The left vertebral artery is dominant. There is atherosclerotic plaque with 0% stenosis of the right and left carotid vessels apices of lungs are clear. There are few small nodules in the right thyroid lobe partially obscured by streak artifact. C ervical soft tissues are otherwise unremarkable. Moderate cervical spondylosis. Intracranial arteries Left vertebral artery is dominant. Severe, >70% stenosis at the intracranial right vertebral artery. There is mild to moderate stenosis at the left intracranial vertebral artery. Extensive atherosclerot ic calcification with <50% stenosis at the bilateral carotid siphons. Minimal atherosclerotic plaque with no hemodynamic significant stenosis at the basilar artery. There are no aneurysms identified. Bi lateral A1 and left P1 segments are patent. Severe stenosis at the origin of the right P1 segment whi ch is supplied primarily via a patent right posterior communicating artery. There is also a tiny darden nt anterior communicating artery. Cerebral arterial arborization appears symmetric. IMPRESSION: 1. 0% stenosis of the right and left carotid bulbs relative to normal distal artery lumen diameter (N ASCET criteria). 2. Atherosclerotic disease along the intracranial arteries with severe stenosis of the right vertebra l artery, mild to moderate stenosis of the left vertebral artery and severe stenosis of the right P1 segment with majority of supply to the right posterior cerebral artery arising from a patent right po sterior communicator artery. Reviewed, dictated and finalized at location A. IMPRESSION: 1. 0% stenosis of the right and left carotid bulbs relative to normal distal ar vanessa lumen diameter (NASCET criteria). 2. Atherosclerotic disease along the intracranial arteries with severe stenosis of the right vertebral artery, mild to moderate stenosis of the left vertebral artery and severe stenosis of the right P1 segment with majority of supply to the right posterior cerebral artery arising from a patent right posterior commu nicator artery.
--- NOTE | 2024-01-01 15:34 | ECG_ITS ---
Test Date: 2024-01-01 16:04:17 Measurements Intervals [place] Rate: 74 P: 71 MA: 227 QRS: -1 QRSD: 97 T: 111 QT: 418 QTc: 465 Interpretive Statements SINUS RHYTHM WITH FIRST DEGREE AV BLOCK NONSPECIFIC ST AND T-WAVE ABNORMALITY ABNORMAL ECG No previous ECG available for comparison Electronically Signed On 01-02-2024 11:11:27 CDT by Fabian Kathleen M.D.
[2024-01-01 15:43] LABS: Basophils Absolute Auto 0.1 K/mm3 (0.0-0.1); Basophils Percent Auto 0.6 % (0.2-1.2); Eosinophils Percent Auto 0.5 % (0-4.4); Immature Granulocyte Absolute 0.03 K/mm3 (0.00-0.031); Immature Granulocyte Percent A 0.4 % (0-0.5); Lymphocytes Percent Auto 23.9 % (18.3-44.2); Mean Corpuscular HGB Conc 31.9 g/dl (32-36); Mean Corpuscular Hemoglobin 29.6 pg (26-34); Mean Corpuscular Volume 92.9 fl (80-100); Mean Platelet Volume 9.6 fl (7.4-10.4); Monocytes Absolute Auto 0.8 K/mm3 (0.1-0.6); Monocytes Percent Auto 9.9 % (2.6-8.5); Neutrophils Absolute Auto 5.1 K/mm3 (1.3-6.7); Neutrophils Percent Auto 64.7 % (45.5-73.1); Platelet Count Result 153 k/mm3 (150-375); Red Blood Count 2.26 M/mm3 (4.2-5.4); Red Cell Distribution Width 14.7 % (11.5-14.5)
[2024-01-01 15:43] LABS: Estimated Glomerular Filt Rate 8
[2024-01-01 15:48] LABS: Hemoglobin 6.7 g/dL (12.0-15.0)
[2024-01-01 15:54] LABS: INR 1.1; Prothrombin Time 14.9 Seconds (11.1-14.7)
--- NOTE | 2024-01-01 16:08 | ED.NEUROSD ---
HPI - Neuro Symptoms/Deficit General Chief Complaint: Suspected CVA <Dm Taveras MD - Last Filed: 01/04/24 14:03> Stated Complaint: cva <Dm Taveras MD - Last Filed: 01/04/24 14:03> Time Seen by Provider: 01/01/24 15:40 <Dm Taveras MD - Last Filed: 01/04/24 14:03> History of Present Illness HPI Narrative: Patient is a 68-year-old female who presents ER with sudden onset slurred speech. Began at 10:30 a.m. after returning from dialysis. EMS concerned she had right facial droop and right arm drift. Patient cannot lift her right arm due to chronic injury to right shoulder that causes pain. Patient reports this morning before symptoms began she had a large dark black bowel movement as well as dark plaque episode of emesis. No syncope. She is not on blood thinning medications. Patient can intermittently give her history but then has. The of expressive aphasia where she cannot give any additional detail. <Dm Taveras MD - Last Filed: 01/04/24 14:03> Related Data Home Medications: Home Medications Medication Instructions Recorded Confirmed allopurinol 100 mg tablet 100 mg PO DAILY 11/01/22 11/19/23 alprazolam 0.5 mg tablet 0.5 mg PO QID PRN Anxiety 11/01/22 11/19/23 atorvastatin 40 mg tablet 40 mg PO HS 11/01/22 11/19/23 fluticasone propionate 50 1 spray intranasal DAILY 11/01/22 11/19/23 mcg/actuation nasal spray,suspension furosemide 80 mg tablet 80 mg PO DAILY 11/01/22 11/19/23 gentamicin 0.1 % topical cream 1 applic topical DAILY 11/01/22 11/19/23 lamotrigine 150 mg tablet 150 mg PO Q12H 11/01/22 11/19/23 levetiracetam 750 mg tablet 750 mg PO DAILY 11/01/22 11/19/23 losartan 50 mg tablet 100 mg PO DAILY 11/01/22 11/19/23 montelukast 10 mg tablet 10 mg PO HS 11/01/22 11/19/23 ropinirole 0.5 mg tablet 0.5 mg PO BID 11/01/22 11/19/23 ropinirole 0.5 mg tablet 1.5 mg PO HS 11/01/22 11/19/23 tizanidine 4 mg tablet 4 mg PO BID PRN Muscle Spasm 11/01/22 11/19/23 hydralazine 100 mg tablet 100 mg PO DAILY 02/25/23 11/19/23 albuterol sulfate 90 mcg/actuation 2 puff inhalation Q6H PRN 07/11/23 11/19/23 aerosol inhaler Shortness Of Breath Or Wheezing amantadine HCl 100 mg capsule 100 mg PO WEEKLY 07/11/23 11/19/23 anastrozole 1 mg tablet 1 mg PO DAILY 07/11/23 11/19/23 carvedilol 6.25 mg tablet 6.25 mg PO Q12H 07/11/23 11/19/23 cholecalciferol (vitamin D3) 125 5,000 unit PO DAILY 07/11/23 11/19/23 mcg (5,000 unit) tablet docusate sodium 100 mg capsule 100 mg PO Q12H 07/11/23 11/19/23 folic acid 1 mg tablet 1 mg PO DAILY 07/11/23 11/19/23 insulin glargine U-300 conc 300 6 unit subcut DAILY 07/11/23 11/19/23 unit/mL (3 mL) subcutaneous pen (Toujeo Max U-300 SoloStar) levothyroxine 50 mcg tablet 50 mcg PO DAILY 07/11/23 11/19/23 nifedipine 60 mg tablet,extended 60 mg PO DAILY 07/11/23 11/19/23 release ondansetron HCl 4 mg tablet 4 mg PO Q8H PRN Nausea 07/11/23 11/19/23 oxycodone-acetaminophen 7.5 mg-325 1 tablet PO Q4-6H PRN Pain 07/11/23 11/19/23 mg tablet polyethylene glycol 3350 17 gram 17 g PO BID PRN Constipation 07/11/23 11/19/23 oral powder packet (Miralax) sevelamer carbonate 800 mg tablet 2,400 mg PO TID 07/11/23 11/19/23 vortioxetine 20 mg tablet 20 mg PO DAILY 07/11/23 11/19/23 (Trintellix) <Dm Taveras MD - Last Filed: 01/04/24 14:03> Allergies/Adverse Reactions: Allergies Allergy/AdvReac Type Severity Reaction Status Date / Time adhesive tape Allergy Rash Verified 11/19/23 05:32 NSAIDS (Non-Steroidal Allergy Other Verified 11/19/23 05:32 Anti-Inflamma pickles AdvReac Swelling Uncoded 11/19/23 05:32 of Lip/Tongue/Throat <Dm Taveras MD - Last Filed: 01/04/24 14:03> Review of Systems Review of Systems: All systems reviewed & are unremarkable except as noted in HPI and below <Dm Taveras MD - Last Filed: 01/04/24 14:03> Constitutional: Constitutional: Reports no additional constitutional complaint
[2024-01-01 16:09] LABS: Alanine Aminotransferase 11 U/L (6-35); Albumin Level 3.7 g/dL (3.5-5.1); Alkaline Phosphatase 152 U/L (38-126); Anion Gap 16 mmol/L (4-12); Aspartate Amino Transferase 19 U/L (14-36); Bilirubin,Total 0.5 mg/dL (0.2-1.3); Calcium 8.5 mg/dL (8.4-10.2); Carbon Dioxide 28 mmol/L (22-30); Chloride 90 mmol/L (98-107); Estimated Glomerular Filt Rate 9; Glucose 141 mg/dL (65-110); Potassium 5.2 mmol/L (3.4-5.0); Sodium 134 mmol/L (137-145)
[2024-01-01 16:13] LABS: Troponin I 0.071 ng/mL (0.000-0.034)
[2024-01-01 16:14] LABS: Blood Urea Nitrogen 124 mg/dL (7-17)
[2024-01-01] MEDS: PANTOPRAZOLE SODIUM IV 40 MG VIAL 80 MG IV PUSH (16:19)
[2024-01-01] MEDS: PANTOPRAZOLE SODIUM IV 80 MG in SODIUM CHLORIDE 0.9% IV 500 ML 50 MG IV CONT (16:30)
[2024-01-01] MEDS: SODIUM CHLORIDE 0.9% IV 250 ML 30 ML IV CONT (18:30)
[2024-01-01] MEDS: TUBING, BLOOD PLUM PUMP TUBING 1 EACH XX ×2 (18:30→20:35)
[2024-01-01] MEDS: TUBING, BLOOD SET 1 EACH XX (20:35)
--- NOTE | 2024-01-01 20:36 | PC.NURSE ---
2nd unit of blood started, 2 rn double checked. no distress noted.
--- NOTE | 2024-01-01 22:12 | PC.NURSE ---
pt placed in hospital bed and h&h drawn after 2nd unit finished.
[2024-01-01 22:18] LABS: Hematocrit 24.7 % (37.0-47.0); Hemoglobin 8.2 g/dL (12.0-15.0)
[2024-01-02] VITALS (99 sets, daily range): BP systolic 164–220; BP diastolic 53–104; PULSE 59–80; RESP 13–38; TEMP 36.6–37.2; O2SAT 91–100
--- NOTE | 2024-01-02 00:19 | PC.NURSE ---
Per patient healthcare representative - pt did not receive dialysis on . Pt is a friday, friday, friday. Pt will need dialysis today (Friday01/02/24).
--- NOTE | 2024-01-02 00:23 | PC.NURSE ---
benita berrios notified of pt need to have dialysis today (friday01/02/24).
[2024-01-02] MEDS: PANTOPRAZOLE SODIUM IV 80 MG in SODIUM CHLORIDE 0.9% IV 500 ML 50 MG IV CONT ×2 (02:32→18:49)
--- NOTE | 2024-01-02 03:23 | PC.NURSE ---
[facility] pt logistic center updated at this time. Call back if any changes - [phone].
[2024-01-02 04:01] LABS: Hematocrit 25.2 % (37.0-47.0); Hemoglobin 8.2 g/dL (12.0-15.0)
--- NOTE | 2024-01-02 06:31 | PC.NURSE ---
margaritobo dr berrios zofrramses 4mg x 1 stat
[2024-01-02] MEDS: ONDANSETRON INJ 4 MG/2 ML VIAL IV PUSH (06:38)
--- NOTE | 2024-01-02 07:42 | PC.NURSE ---
Patient neuro check normal at this time. Patient unable to lift right arm all the way up at baseline due to tendon injury in her shoulder in the past.
--- NOTE | 2024-01-02 07:53 | PC.NURSE ---
Patient assisted on bedpan to have a BM. Patient advised to press call light when she was finished.
--- NOTE | 2024-01-02 08:07 | PC.NURSE ---
Patient had a black, loose bowel movement. patient cleaned up and depend changed and patient repositioned.
[2024-01-02 09:01] LABS: Hematocrit 27.3 % (37.0-47.0); Hemoglobin 8.9 g/dL (12.0-15.0)
--- NOTE | 2024-01-02 09:29 | PC.NURSE ---
Patient states she gets her dialysis Friday, Friday, and Friday. Provider aware
--- NOTE | 2024-01-02 09:52 | PC.NURSE ---
Spoke with Valeria at the [facility] transfer center about patient. I updated them on the fact that the patient is needing dialysis and our provider was told the patient will not get dialysis here because she is not admitted at this hospital. Valeria states she will speak with the hospitalist at [facility] and call us back with an update.
--- NOTE | 2024-01-02 10:14 | PC.NURSE ---
Spoke with Valeria at the transfer center and she states patient has been placed on *high priority* list.
--- NOTE | 2024-01-02 10:21 | PC.NURSE ---
Patient assisted to bedpan for BM. stool was more liquid and less blood and more of a dark brown seen by this RN. Provider aware.
[2024-01-02] MEDS: LOSARTAN POTASSIUM 100 MG TABLET PO (12:56)
[2024-01-02] MEDS: FUROSEMIDE INJ 40 MG/4 ML VIAL IV PUSH (12:56)
[2024-01-02] MEDS: carvediloL 6.25 MG TABLET PO ×2 (12:56→22:27)
[2024-01-02 16:09] LABS: Hematocrit 24.8 % (37.0-47.0); Hemoglobin 8.1 g/dL (12.0-15.0)
--- NOTE | 2024-01-02 16:40 | ECG_ITS ---
Test Date: 2024-01-02 16:46:54 Measurements Intervals [place] Rate: 59 P: -20 OK: 186 QRS: -6 QRSD: 107 T: 81 QT: 498 QTc: 496 Interpretive Statements SINUS BRADYCARDIA MILD NONSPECIFIC ST AND T-WAVE ABNORMALITY ABNORMAL ECG Compared to ECG 01/01/2024 16:04:17 NO SIGNIFICANT DIFFERENCEt Electronically Signed On 01-02-2024 18:23:09 CDT by Fabian Kathleen M.D.
--- NOTE | 2024-01-02 22:29 | PC.NURSE ---
Delay in getting Coreg from pharmacy, given as soon as received from pharmacy
[2024-01-03] VITALS (131 sets, daily range): BP systolic 130–201; BP diastolic 46–80; PULSE 56–65; RESP 12–31; TEMP 36.6; O2SAT 90–100
[2024-01-03 03:15] LABS: Hematocrit 23.6 % (37.0-47.0); Hemoglobin 7.7 g/dL (12.0-15.0)
[2024-01-03 03:42] LABS: Alanine Aminotransferase 10 U/L (6-35); Albumin Level 3.4 g/dL (3.5-5.1); Alkaline Phosphatase 158 U/L (38-126); Anion Gap 17 mmol/L (4-12); Aspartate Amino Transferase 18 U/L (14-36); Bilirubin,Total 0.7 mg/dL (0.2-1.3); Calcium 8.3 mg/dL (8.4-10.2); Carbon Dioxide 23 mmol/L (22-30); Chloride 96 mmol/L (98-107); Estimated CRCL calculation 6 ml/min; Estimated Glomerular Filt Rate 5; Glucose 114 mg/dL (65-110); Potassium 4.9 mmol/L (3.4-5.0); Sodium 136 mmol/L (137-145)
[2024-01-03 03:43] LABS: Blood Urea Nitrogen 133 mg/dL (7-17)
--- NOTE | 2024-01-03 03:49 | PC.NURSE ---
0300 Phlebotomy came to collect pt's blood work. 2 RN's tried x2 prior to calling phlebotomy.
--- NOTE | 2024-01-03 06:27 | PC.NURSE ---
Update given to [facility].
[2024-01-03] MEDS: carvediloL 6.25 MG TABLET PO ×2 (09:00→21:21)
[2024-01-03] MEDS: FUROSEMIDE INJ 40 MG/4 ML VIAL IV PUSH ×2 (09:00→19:32)
[2024-01-03] MEDS: LOSARTAN POTASSIUM 100 MG TABLET PO (09:01)
[2024-01-03 09:38] LABS: Hematocrit 24.6 % (37.0-47.0); Hemoglobin 7.7 g/dL (12.0-15.0)
--- NOTE | 2024-01-03 13:51 | PC.NURSE ---
Still no bed, pt cont [facility].
[2024-01-03 14:59] LABS: Hematocrit 24.5 % (37.0-47.0); Hemoglobin 7.7 g/dL (12.0-15.0)
[2024-01-03 15:39] LABS: Alanine Aminotransferase 10 U/L (6-35); Albumin Level 3.3 g/dL (3.5-5.1); Alkaline Phosphatase 140 U/L (38-126); Anion Gap 20 mmol/L (4-12); Aspartate Amino Transferase 16 U/L (14-36); Bilirubin,Total 0.6 mg/dL (0.2-1.3); Blood Urea Nitrogen 141 mg/dL (7-17); Calcium 7.2 mg/dL (8.4-10.2); Carbon Dioxide 18 mmol/L (22-30); Chloride 94 mmol/L (98-107); Estimated CRCL calculation 6 ml/min; Estimated Glomerular Filt Rate 5; Glucose 357 mg/dL (65-110); Sodium 132 mmol/L (137-145)
--- NOTE | 2024-01-03 16:20 | PC.NURSE ---
Patient assisted on bedpan, had a small brown loose stool. Pt cleaned up and repositioned.
--- NOTE | 2024-01-03 17:29 | ECG_ITS ---
Test Date: 2024-01-03 17:29:45 Measurements Intervals [place] Rate: 62 P: 62 SD: 226 QRS: 35 QRSD: 102 T: 62 QT: 489 QTc: 500 Interpretive Statements SINUS RHYTHM WITH FIRST DEGREE AV BLOCK INCOMPLETE RIGHT BUNDLE BRANCH BLOCK [90+ ms QRS DURATION, TERMINAL R IN V1/V2, 40+ ms S IN I/aVL/V4/V5/V6] NONSPECIFIC ST ABNORMALITY PROLONGED QT INTERVAL ABNORMAL ECG Compared to ECG 01/02/2024 16:46:54 First degree AV block now present SD INTERVAL IS SLIGHTLY LONGER, OTHERWISE NO SIGNIFICANT CHANGE Electronically Signed On 01-04-2024 08:59:46 CDT by Fabian Kathleen M.D.
--- NOTE | 2024-01-03 19:19 | PC.NURSE ---
Report received from ALFRED Pinzon. Assumed care of patient at this time.
[2024-01-03 19:31] LABS: Glucose Point of Care 141 mg/dl (65-105)
[2024-01-03] MEDS: INSULIN GLARGINE (*BKC) 100 UNITS/ML 6 UNITS SUB-Q (19:32)
[2024-01-03] MEDS: PANTOPRAZOLE SODIUM IV 40 MG VIAL IV PUSH (21:21)
[2024-01-03 21:22] LABS: Hematocrit 21.6 % (37.0-47.0); Hemoglobin 7.2 g/dL (12.0-15.0)
--- NOTE | 2024-01-03 21:26 | PC.NURSE ---
Patient complained of nausea and pain to her lower back, states its chronic and takes oxycodone at home. ERP notified.
[2024-01-03 21:56] LABS: Glucose Point of Care 88 mg/dl (65-105)
[2024-01-03] MEDS: ONDANSETRON HCL ODT 4 MG TABLET SUBLINGUAL (23:16)
[2024-01-03] MEDS: oxyCODONE/ACETAMINOPHEN (*CRX) 5-325 MG TABLET 1 TABLET PO (23:16)
--- NOTE | 2024-01-03 23:46 | PC.NURSE ---
Patient repositioned in bed with assistance. Patient has call light within reach.
[2024-01-04] VITALS (43 sets, daily range): BP systolic 137–181; BP diastolic 45–126; PULSE 48–62; RESP 12–26; TEMP 36.3–36.9; O2SAT 94–100
[2024-01-04 02:52] LABS: Glucose Point of Care 109 mg/dl (65-105)
[2024-01-04 03:19] LABS: Hematocrit 20.9 % (37.0-47.0); Hemoglobin 6.8 g/dL (12.0-15.0)
[2024-01-04 03:24] LABS: Anion Gap 18 mmol/L (4-12); Carbon Dioxide 21 mmol/L (22-30); Chloride 96 mmol/L (98-107); Estimated CRCL calculation 5 ml/min; Estimated Glomerular Filt Rate 5; Glucose 104 mg/dL (65-110); Potassium 4.9 mmol/L (3.4-5.0); Sodium 135 mmol/L (137-145)
[2024-01-04 03:52] LABS: Blood Urea Nitrogen 139 mg/dL (7-17)
--- NOTE | 2024-01-04 03:52 | PC.NURSE ---
Updated [facility] transfer center on pt's decreased H/H. Continues to state that they are at capacity at this time.
[2024-01-04] MEDS: SODIUM CHLORIDE 0.9% IV 250 ML 30 ML IV CONT (03:55)
[2024-01-04] MEDS: TUBING, BLOOD PLUM PUMP TUBING 1 EACH XX (03:55)
--- NOTE | 2024-01-04 05:44 | PC.NURSE ---
Patient blood transfusion finished infusing. Patient also repositioned from left to right side. Patient has call light within reach, receiving 2L via NC. VSS, patient denies any pain at this time. Patient has no complaints.
[2024-01-04] MEDS: PANTOPRAZOLE SODIUM IV 40 MG VIAL IV PUSH (11:38)
[2024-01-04] MEDS: LOSARTAN POTASSIUM 100 MG TABLET PO (11:38)
[2024-01-04 12:33] LABS: Hematocrit 26.1 % (37.0-47.0); Hemoglobin 8.3 g/dL (12.0-15.0)
--- NOTE | 2024-01-04 13:14 | PC.NURSE ---
1257 bed assignment from renae @ [facility] Transfer [facility] - No Truck 1310 [facility] - No Truck [address] [facility] 1348 Trip # [id number]
== END 2024-01-04 14:18 | disposition short-term general hospital (02) ==
PROVIDERS: Emergency Medicine; Emergency Provider Emergency Medicine; PCP Internal Medicine
DX: K92.2 Gastrointestinal hemorrhage, unspecified (principal); R47.01 Aphasia; I48.0 Paroxysmal atrial fibrillation; I25.10 Atherosclerotic heart disease of native coronary artery without angina pectoris; I12.0 Hypertensive chronic kidney disease with stage 5 chronic kidney disease or end stage renal disease; E11.22 Type 2 diabetes mellitus with diabetic chronic kidney disease; N18.6 End stage renal disease; Z99.2 Dependence on renal dialysis; E11.43 Type 2 diabetes mellitus with diabetic autonomic (poly)neuropathy; K31.84 Gastroparesis; E11.40 Type 2 diabetes mellitus with diabetic neuropathy, unspecified; D50.9 Iron deficiency anemia, unspecified; G47.33 Obstructive sleep apnea (adult) (pediatric); G24.01 Drug induced subacute dyskinesia; F41.9 Anxiety disorder, unspecified; F31.9 Bipolar disorder, unspecified; Z85.3 Personal history of malignant neoplasm of breast; Z87.891 Personal history of nicotine dependence; Z90.49 Acquired absence of other specified parts of digestive tract; Z96.1 Presence of intraocular lens; Z98.42 Cataract extraction status, left eye; Z98.41 Cataract extraction status, right eye; Z79.899 Other long term (current) drug therapy; Z79.4 Long term (current) use of insulin; R90.82 White matter disease, unspecified; I67.2 Cerebral atherosclerosis; I65.03 Occlusion and stenosis of bilateral vertebral arteries; R00.1 Bradycardia, unspecified; R94.31 Abnormal electrocardiogram [ECG] [EKG]; I44.0 Atrioventricular block, first degree; I45.10 Unspecified right bundle-branch block
CPT/HCPCS: 36415; 36430; 70450; 70496; 70498; 71045; 80048; 80053; 82948; 84484; 85014; 85018; 85025; 85610; 85730; 86850; 86900; 86901; 86923; 93005; 96361; 96374; 96375; 96376; 99285; A9270; J1815; J1940; J2405; J2470; J7040; J7050; P9016; Q9967

== ENCOUNTER 2024-01-11 20:41 | Inpatient (IN) | payer MEDICARE, MEDICAID, SELFPAY ==
--- NOTE | ~2024-01-11 | CT_ITS ---
EXAMINATION: CT abdomen pelvis w con DATE: 01/11/2024 23:42 INDICATION: Generalized abdominal pain. Blood in stool. TECHNIQUE: Computed tomography (CT) of the abdomen and pelvis was performed with 100 mL Omnipaque 350 intravenous contrast. Automated exposure control and iterative reconstruction technique were employe d. The dose-length product was 1269.01 mGy-cm. COMPARISON: CT abdomen and pelvis 03/22/2023 FINDINGS: The visualized portions of the lung bases demonstrate mild atelectasis. No pleural effusion . The heart size is normal. There are coronary artery calcifications. No pericardial effusion. The li tomasz is normal. There are changes of cholecystectomy. The spleen, pancreas, adrenal glands are normal. There is mild atrophy of the kidneys. There is a 7 mm cyst in right kidney. There is calcified ather osclerosis of the aorta and many of the other arteries. There is diverticulosis of the colon without evidence of diverticulitis. The appendix is not visualized. There are no pathologically enlarged lymp h nodes. There is no free intraperitoneal fluid. There is severe lumbar spondylosis and mild thoracic spondylosis. IMPRESSION: 1. No etiology for the patient's symptoms. Reviewed, dictated and finalized at location A.
[2024-01-11 20:42] VITALS: BP 159/62; PULSE 78; RESP 14; TEMP 37.1; O2SAT 100
--- NOTE | 2024-01-11 20:49 | ECG_ITS ---
Test Date: 2024-01-11 20:51:40 Measurements Intervals [place] Rate: 79 P: 50 VA: 209 QRS: 21 QRSD: 94 T: 42 QT: 479 QTc: 549 Interpretive Statements SINUS RHYTHM WITH FIRST-DEGREE AV BLOCK MODERATE ST DEPRESSION [0.05+ mV ST DEPRESSION] PROLONGED QT INTERVAL ABNORMAL ECG Compared to ECG 01/03/2024 17:29:45 NO SIGNIFICANT DIFFERENCE Electronically Signed On 01-12-2024 12:23:59 CDT by Fabian Kathleen M.D.
[2024-01-11 20:57] LABS: Basophils Percent Auto 0.5 % (0.2-1.2); Eosinophils Absolute Auto 0.3 K/mm3 (0-0.3); Eosinophils Percent Auto 3.5 % (0-4.4); Hematocrit 23.1 % (37.0-47.0); Hemoglobin 7.3 g/dL (12.0-15.0); Immature Granulocyte Absolute 0.06 K/mm3 (0.00-0.031); Immature Granulocyte Percent A 0.7 % (0-0.5); Lymphocytes Absolute Auto 1.38 K/mm3 (0.9-3.2); Lymphocytes Percent Auto 16.7 % (18.3-44.2); Mean Corpuscular HGB Conc 31.6 g/dl (32-36); Mean Corpuscular Volume 95.1 fl (80-100); Mean Platelet Volume 9.1 fl (7.4-10.4); Monocytes Absolute Auto 0.8 K/mm3 (0.1-0.6); Monocytes Percent Auto 9.2 % (2.6-8.5); Neutrophils Absolute Auto 5.7 K/mm3 (1.3-6.7); Neutrophils Percent Auto 69.4 % (45.5-73.1); Platelet Count Result 202 k/mm3 (150-375); Red Blood Count 2.43 M/mm3 (4.2-5.4); White Blood Count 8.2 K/mm3 (4.5-10.0)
--- NOTE | 2024-01-11 21:08 | ED.GIBLEED ---
HPI - GI Bleed General Chief complaint: GI Bleed <Sera Workman PA-C - Last Filed: 01/12/24 01:18> Stated complaint: GI BLEED <Sera Workman PA-C - Last Filed: 01/12/24 01:18> History of Present Illness HPI Narrative: 68-year-old female with a history of neuropathy, ESRD on hemodialysis, PUD, GI bleed presents to the emergency department for tarry stools that started today. Patient was seen in our emergency department on 01/01/2024 for upper GI bleed. She was transferred to [facility] and underwent an upper endoscopy. States she was found have a polyp that was biopsied and was told she had hypertrophy of her stomach lining. she believes she had 7 units of blood transfused during her admission. She was discharged home 3 days ago and states she has not picked up any of her medications because she has not had a change did go to the pharmacy. She presents today for for episodes of melena. She is reporting shortness of breath and generalized weakness, and generalized abdominal pain that has been unchanged since the onset of the symptoms. She states she has been hacking up brown sputum as well. Denies fever. Denies history of liver disease or esophageal varices. Denies alcoholism and use of anticoagulants. <Sera Workman PA-C - Last Filed: 01/12/24 01:18> Related Data Home medications: Home Medications Medication Instructions Recorded Confirmed allopurinol 100 mg tablet 100 mg PO DAILY 11/01/22 01/12/24 alprazolam 0.5 mg tablet 0.5 mg PO QID PRN Anxiety 11/01/22 01/12/24 fluticasone propionate 50 1 spray intranasal DAILY PRN 11/01/22 01/12/24 mcg/actuation nasal allergies spray,suspension furosemide 80 mg tablet 80 mg PO DAILY 11/01/22 01/12/24 lamotrigine 150 mg tablet 150 mg PO Q12H 11/01/22 01/12/24 levetiracetam 750 mg tablet 750 mg PO DAILY 11/01/22 01/12/24 losartan 50 mg tablet 100 mg PO DAILY 11/01/22 01/12/24 montelukast 10 mg tablet 10 mg PO HS 11/01/22 01/12/24 ropinirole 0.5 mg tablet See Rx Instructions .Route .COMPLEX 11/01/22 01/12/24 tizanidine 4 mg tablet 4 mg PO BID PRN Muscle Spasm 11/01/22 01/12/24 albuterol sulfate 90 mcg/actuation 2 puff inhalation Q6H PRN 07/11/23 01/12/24 aerosol inhaler Shortness Of Breath Or Wheezing amantadine HCl 100 mg capsule 100 mg PO WEEKLY 07/11/23 01/12/24 anastrozole 1 mg tablet 1 mg PO DAILY 07/11/23 01/12/24 carvedilol 6.25 mg tablet 6.25 mg PO Q12H 07/11/23 01/12/24 cholecalciferol (vitamin D3) 125 5,000 unit PO DAILY 07/11/23 01/12/24 mcg (5,000 unit) tablet docusate sodium 100 mg capsule 100 mg PO Q12H 07/11/23 01/12/24 folic acid 1 mg tablet 1 mg PO DAILY 07/11/23 01/12/24 insulin glargine U-300 conc 300 6 unit subcut DAILY 07/11/23 01/12/24 unit/mL (3 mL) subcutaneous pen (TouIMANINo Max U-300 SoloStar) levothyroxine 50 mcg tablet 50 mcg PO DAILY 07/11/23 01/12/24 nifedipine 60 mg tablet,extended 60 mg PO DAILY 07/11/23 01/12/24 release oxycodone-acetaminophen 7.5 mg-325 1 tablet PO Q4-6H PRN Pain (Scale 07/11/23 01/12/24 mg tablet Score 4-6) polyethylene glycol 3350 17 gram 17 g PO BID PRN Constipation 07/11/23 01/12/24 oral powder packet (Miralax) sevelamer carbonate 800 mg tablet 2,400 mg PO TID 07/11/23 01/12/24 vortioxetine 20 mg tablet 20 mg PO DAILY 07/11/23 01/12/24 (Trintellix) atorvastatin 20 mg tablet 20 mg PO HS 01/12/24 01/12/24 hydralazine 50 mg tablet 100 mg PO Q8H 01/12/24 01/12/24 ketoconazole 2 % topical cream 1 applic topical DAILY 01/12/24 01/12/24 naloxegol 25 mg tablet (Movantik) 25 mg PO DAILY 01/12/24 01/12/24 <Sera Workman PA-C - Last Filed: 01/12/24 01:18> Allergies/Adverse reactions: Allergies Allergy/AdvReac Type Severity Reaction Status Date / Time adhesive tape Allergy Rash Verified 01/12/24 02:47 NSAIDS (Non-Steroidal Allergy Other Verified 01/12/24 02:47 Anti-Inflamma pickles AdvReac Swelling Uncoded 01/11/24 23:24 of Lip/Tongue/Throat <Sera Cunningham
[2024-01-11 21:10] LABS: Alanine Aminotransferase 11 U/L (6-35); Albumin Level 3.3 g/dL (3.5-5.1); Alkaline Phosphatase 124 U/L (38-126); Anion Gap 15 mmol/L (4-12); Aspartate Amino Transferase 16 U/L (14-36); Bilirubin,Total 0.6 mg/dL (0.2-1.3); Blood Urea Nitrogen 96 mg/dL (7-17); Calcium 8.2 mg/dL (8.4-10.2); Carbon Dioxide 34 mmol/L (22-30); Chloride 85 mmol/L (98-107); Estimated CRCL calculation 7 ml/min; Estimated Glomerular Filt Rate 6; Glucose 207 mg/dL (65-110); Potassium 4.6 mmol/L (3.4-5.0); Sodium 134 mmol/L (137-145)
[2024-01-11 21:11] LABS: INR 1.2; Partial Thromboplastin Time 26.8 Seconds (22.3-36.8); Prothrombin Time 15.9 Seconds (11.1-14.7)
[2024-01-11] MEDS: PANTOPRAZOLE SODIUM IV 40 MG VIAL 80 MG IV PUSH (21:18)
[2024-01-11] MEDS: SODIUM CHLORIDE 0.9% IV 1,000 ML 999 ML IV CONT (21:51)
[2024-01-11 22:25] VITALS: BP 196/56; PULSE 79; RESP 16; TEMP 36.9; O2SAT 98
[2024-01-11] MEDS: SODIUM CHLORIDE 0.9% IV 250 ML 30 ML IV CONT (22:31)
[2024-01-11] MEDS: TUBING, BLOOD PLUM PUMP TUBING 1 EACH XX (22:32)
[2024-01-11 22:41] VITALS: BP 166/56; PULSE 80; RESP 17; TEMP 36.9; O2SAT 98
[2024-01-11 23:41] VITALS: BP 173/66; PULSE 79; RESP 15; TEMP 36.9; O2SAT 98
[2024-01-12] VITALS (42 sets, daily range): BP systolic 96–183; BP diastolic 41–79; PULSE 71–87; RESP 14–20; TEMP 36.1–37.4; O2SAT 96–100; BMI 27.2
[2024-01-12 00:44] LABS: Hematocrit 21.9 % (37.0-47.0)
[2024-01-12 00:51] LABS: Hemoglobin 6.9 g/dL (12.0-15.0)
--- NOTE | 2024-01-12 01:43 | PM.IMHP ---
H&P: HPI History of Present Illness Date/Time: 01/12/24 01:43 Chief Complaint: melena Narrative: this is a 68-year-old female with past medical history significant for end-stage renal disease on hemodialysis, hypertrophic gastro [place], anemia of chronic disease, insulin-dependent diabetes mellitus, peripheral neuropathy, bipolar disorder, breast cancer, gastroparesis, coronary artery disease, paroxysmal atrial fibrillation, tardive dyskinesia. Patient with recent GI bleed transferred to tertiary facility and discharge comes today with recurrence of melena, patient denies any coffee-ground emesis denies bright red blood per rectum denies hematemesis Review of Systems Review of Systems: melena PMFSH Past Medical History Medical History Anxiety and depression Bipolar depression Breast cancer Constipation Coronary artery disease End stage renal disease On hemodialysis with peritoneal dialysis catheter in place Esophageal ulcer Gastric mass Benign hyperplastic foveolar mucosa partially obstructing pylorus found on EGD in October 2022. Repeat EGD two weeks later showed gastritis and NERD but no mass. She was treated with PPI. 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 Pozo. The dialysis catheter had been initially placed and May at [facility]. It was subsequently removed in mid October. S/P appendectomy (10/31/22) Dilated appendix, extensive adhesion lysis of adhesions around peritoneal dialysis catheter Status post cataract extraction of both eyes with insertion of intraocular lens Family History Family History Daughter Precancerous changes of the cervix Pancreatitis Daughter Colon cancer Precancerous changes of the cervix Unknown Diabetes mellitus Father Heart attack Sibling Pancreatitis Adyr's disease Grandparent Heart attack Cerebrovascular accident Grandparent Cerebrovascular accident Social History Social History Social History: She lives with her of approximately 15 years. She has 4 children. She smoked about half a pack of cigarettes per day for about 14 years but quit smoking approximately 40 years ago. 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
[2024-01-12 02:49] LABS: Hematocrit 22.4 % (37.0-47.0); Hemoglobin 7.1 g/dL (12.0-15.0)
--- NOTE | 2024-01-12 03:22 | ADMGEN ---
This patient, Yasmin Colbert, was admitted to IMU Room 212-01 at 0228. Patient/family oriented to hospital policies and general routines including ID bracelet, bed and alarms, visiting hours, pain management, procedures, bathroom and other care routines, personal items, smoking policy, room service/diet, and visiting hours. Information on how to activate the Rapid Response Team has been discussed. Patient/Family are encouraged to report perceived risks to care and to ask questions if they do not understand what they are told or what they should do.
[2024-01-12] MEDS: hydrALAZINE HCL 20 MG/ML VIAL 10 MG IV PUSH (04:36)
[2024-01-12 06:47] LABS: Glucose Point of Care 172 mg/dl (65-105)
[2024-01-12] MEDS: hydrALAZINE HCL 50 MG TABLET 100 MG PO ×3 (07:08→21:37)
[2024-01-12] MEDS: LEVOTHYROXINE SODIUM 50 MCG TABLET PO (07:08)
[2024-01-12 08:00] LABS: Hematocrit 21.2 % (37.0-47.0)
[2024-01-12 08:02] LABS: Hemoglobin 6.7 g/dL (12.0-15.0)
--- NOTE | 2024-01-12 08:14 | P.CONGI_ITS ---
I, Ravi Palomo MD, have provided a substantive portion of the care of this patient and discussed the patient with my Nurse Practitioner. I have reviewed any new relevant radiographic and laboratory results including medications. I agree with her documentation as noted below.?I personally performed the medical decision making and much of the history and exam for this encounter. briefly, she has mutliple medical problems including esrd on dialysis, heart disease, HTN with recent admission at [facility] with UGIB, she underwent EGD with ? removal of gastric polyp- she is not best historian- here again with dark tarry stool confirmed in ER. She is admitted, started on iv protonix, evaluated by nephrology. Plan is to keep hgb>7, egd in am. Assessment and Plan Assessment and plan (1) Melena: Code(s): K92.1 - Melena Status: Acute (2) Anemia: Qualifiers: Anemia type: due to chronic kidney disease Chronic kidney disease stage: on chronic dialysis Qualified Code(s): N18.6 - End stage renal disease; D63.1 - Anemia in chronic kidney disease; Z99.2 - Dependence on renal dialysis Code(s): D64.9 - Anemia, unspecified Status: Acute (3) History of gastric ulcer: Code(s): Z87.11 - Personal history of peptic ulcer disease Status: Acute (4) Nonerosive esophageal reflux disease: Code(s): K21.9 - Gastro-esophageal reflux disease without esophagitis Status: Acute Plan 1. Melena / coffee ground emesis /Anemia/ NERD/history of gastric ulcers: Patient presented 01/01/2024 with similar complaints and was transferred to [facility] ([facility]) minimal information was available about this last admission during today's visit. RN believes that the patient may have had an EGD with gastric polyp removed but results were not available today's visit. Patient presented to the emergency room with continued complaints melena and coffee-ground emesis. Per RN the patient had a large black tarry stool last night. EGD 11/27/2022 showed nonerosive reflux disease at the GE junction and moderate localized gastritis in the antrum with erythematous and edematous changes. EGD 11/01/2022 showed a single superficial ulcer measuring 15 mm in the mid esophagus, grade C reflux esophagitis in the distal esophagus, a few superficial ulcers in the antrum, and a protruding, ulcerated mass in the pre- pyloric region appearing partially obstructing. Biopsy of the antrum showed benign hyperplastic foveolar mucosa. per RN no hematemesis or coffee-ground emesis since admission. CT on admission was unremarkable. Labs show HGB 7.3-->7, HCT 21-->23 , INR 1.2. Patient with chronic anemia with an average hemoglobin between 7-8 since October of 2022. Patient with AFib and end-stage renal disease on hemodialysis but it does not appear that she was on any anticoagulation prior to admission. DDX: Peptic ulcer disease VS gastritis VS esophagitis VS GI malignancy * patient pending blood transfusion but per RN the plan is to provide transfusion during hemodialysis due to hypertension * primary care team to continue monitoring H&H and transfuse as needed to keep HGB > 7 * acute on chronic anemia likely multifactorial etiology * plan for repeat EGD tomorrow * Ok to advance diet today * NPO after midnight * Care with NSAIDs, aspirin, and anticoagulation * Continue PPI Thank you very much for allowing me to share in the care of this very nice [place] al. This report may have been done utilizing a voice recognition system. Attempts have been made to correct errors. However, there may be uncorrected grammatical, spelling, and recognition errors present.
--- NOTE | 2024-01-12 08:14 | WPDGICN ---
Assessment and Plan Assessment and plan (1) Melena: Code(s): K92.1 - Melena Status: Acute (2) Anemia: Qualifiers: Anemia type: due to chronic kidney disease Chronic kidney disease stage: on chronic dialysis Qualified Code(s): N18.6 - End stage renal disease; D63.1 - Anemia in chronic kidney disease; Z99.2 - Dependence on renal dialysis Code(s): D64.9 - Anemia, unspecified Status: Acute (3) History of gastric ulcer: Code(s): Z87.11 - Personal history of peptic ulcer disease Status: Acute (4) Nonerosive esophageal reflux disease: Code(s): K21.9 - Gastro-esophageal reflux disease without esophagitis Status: Acute Plan 1. Melena / coffee ground emesis /Anemia/ NERD/history of gastric ulcers: Patient presented 01/01/2024 with similar complaints and was transferred to [facility] ([facility]) minimal information was available about this last admission during today's visit. RN believes that the patient may have had an EGD with gastric polyp removed but results were not available today's visit. Patient presented to the emergency room with continued complaints melena and coffee-ground emesis. Per RN the patient had a large black tarry stool last night. EGD 11/27/2022 showed nonerosive reflux disease at the GE junction and moderate localized gastritis in the antrum with erythematous and edematous changes. EGD 11/01/2022 showed a single superficial ulcer measuring 15 mm in the mid esophagus, grade C reflux esophagitis in the distal esophagus, a few superficial ulcers in the antrum, and a protruding, ulcerated mass in the pre-pyloric region appearing partially obstructing. Biopsy of the antrum showed benign hyperplastic foveolar mucosa. per RN no hematemesis or coffee-ground emesis since admission. CT on admission was unremarkable. Labs show HGB 7.3-->7, HCT 21-->23 , INR 1.2. Patient with chronic anemia with an average hemoglobin between 7-8 since October of 2022. Patient with AFib and end-stage renal disease on hemodialysis but it does not appear that she was on any anticoagulation prior to admission. DDX: Peptic ulcer disease VS gastritis VS esophagitis VS GI malignancy patient pending blood transfusion but per RN the plan is to provide transfusion during hemodialysis due to hypertension primary care team to continue monitoring H&H and transfuse as needed to keep HGB > 7 acute on chronic anemia likely multifactorial etiology plan for repeat EGD tomorrow Ok to advance diet today NPO after midnight Care with NSAIDs, aspirin, and anticoagulation Continue PPI Thank you very much for allowing me to share in the care of this very nice patient. This report may have been done utilizing a voice recognition system. Attempts have been made to correct errors. However, there may be uncorrected grammatical, spelling, and recognition errors present. GI Consult Note Consult date/time: 01/12/24 08:14 Reason for consult: GI bleed HPI: This is a pleasant 68 year old female with a past medical surgical history of anxiety, depression, bipolar disorder, history of breast cancer, CAD, end-stage renal disease on hemodialysis, history of esophageal ulcer, history of gastric ulcer, gastroparesis, HTN, anemia of chronic disease, obstructive sleep apnea, AFib, tardive dyskinesia, history of rectocele repair, cholecystectomy, appendectomy, and tubal ligation she presented to the ER room 01/12/2024 with complaints of melena and coffee-ground emesis. GI consulted for GI bleed. Patient presented to the emergency room 01/01/2024 for acute upper GI bleed and was transferred to a tertiary facility per RN the patient was at [facility] and she believes that the patient had an EGD during that admission but these records were not available at todays visit. She presented back to [facility] today with complaints of melena and coffee ground emesis. No subjective information was obtained from the patient as she wa
[2024-01-12] MEDS: levETIRAcetam 250 MG TABLET 750 MG PO (09:41)
[2024-01-12] MEDS: lamoTRIgine 50 MG TABLET 150 MG PO ×2 (09:45→21:38)
--- NOTE | 2024-01-12 12:25 | PM.CNNEP ---
Assessment and Plan Assessment and plan (1) End stage renal disease: Code(s): N18.6 - End stage renal disease Status: Chronic Assessment and Plan: HD today plan PRBC transfusion with dialysis today continue outpatient schedule of M/W/F follow electrolytes, volume status, and clearance (2) GI bleed: Code(s): K92.2 - Gastrointestinal hemorrhage, unspecified Status: Acute Assessment and Plan: as noted by history of coffee ground emesis and melena low H/H noted as well PRBC transfusion per protocol recently at [facility] for same issues -- details of this hospitalization not clear Gastroenterology recommendations noted (3) Hypertension: Qualifiers: Hypertension type: secondary to other renal disorders Qualified Code(s): I15.1 - Hypertension secondary to other renal disorders; N28.89 - Other specified disorders of kidney and ureter Code(s): I10 - Essential (primary) hypertension Status: Acute Assessment and Plan: elevated on presentation but on the lower side during dialysis follow trend of hemodynamics (4) Anemia: Qualifiers: Anemia type: due to chronic kidney disease Chronic kidney disease stage: on chronic dialysis Qualified Code(s): N18.6 - End stage renal disease; D63.1 - Anemia in chronic kidney disease; Z99.2 - Dependence on renal dialysis Code(s): D64.9 - Anemia, unspecified Status: Acute Assessment and Plan: partly related to ESRD and now complicated by #2 Epogen with HD follow trend on H/H (5) Generalized weakness: Code(s): R53.1 - Weakness Status: Acute Assessment and Plan: partly due to #2 and associated generalized deconditioning from recent previous hospitalization PT/OT if needed hopefully resolution of #2 with improve this issue I will continue follow the patient with you while she remains hospitalized and make further recommendations during hospital course. Thank you for allowing me to participate in care with patient. History of Present Illness Reason for Consult Consult date: 01/12/24 Reason for consult: end stage renal disease Chief Complaint Chief complaint: Upper GI BLEED History of Present Illness Narrative: The patient is a 68-year-old the patient is a 68-year-old female with a past medical history as outlined below who presented to [facility] Emergency room with complaints of black tarry stools. It is difficult to get a full and complete history from the patient as she falls asleep multiple times during my conversation with her and she does not always fully answer the questions I ask. Hence a great majority of the history is supplemented by the electronic medical record as well as my discussion with the other physicians/nurses involved in the patient's care. The patient reports that the black tarry stool seem to manifest themselves on the day of admission. The patient was just recently hospitalized at [facility] for this same issue and although the details of that hospitalization are not entirely clear to me, she apparently underwent EGD with subsequent biopsies but I am unclear if they found active source of bleeding. She was apparently transfused with multiple units of packed red blood cells as well. Eventually, her overall condition stabilized and she was subsequently was discharged about four days ago from [facility]. As mentioned, on the day of admission, she had episode of melena. This was complicated by shortness of breath, generalized weakness and generalized abdominal pain. Given the constellation of symptoms and her recent hospitalization for a GI bleed, she came to the ER for further assessment. Workup and evaluation in the emergency room demonstrated the patient to be hemodynamically stable but routine blood test demonstrated labs consistent with her known history of end-stage renal disea
[2024-01-12 12:33] LABS: Hepatitis B Surface Antigen Negative (Negative)
[2024-01-12 12:53] LABS: Hepatitis B Surface Anti Res Positive
[2024-01-12] MEDS: EPOETIN ALFA 20,000 UNITS/ML VIAL 20000 UNITS IV PUSH (13:28)
--- NOTE | 2024-01-12 13:47 | PM.IMPN ---
Progress Note: A&P Assessment and Plan (1) GI bleed: Code(s): K92.2 - Gastrointestinal hemorrhage, unspecified Status: Acute (2) Acute on chronic anemia: Code(s): D64.9 - Anemia, unspecified Status: Acute (3) Iron deficiency anemia: Qualifiers: Iron deficiency anemia type: chronic blood loss Qualified Code(s): D50.0 - Iron deficiency anemia secondary to blood loss (chronic) Code(s): D50.9 - Iron deficiency anemia, unspecified Status: Acute (4) End stage renal disease: Code(s): N18.6 - End stage renal disease Status: Chronic (5) Neuropathy: Code(s): G62.9 - Polyneuropathy, unspecified Status: Acute (6) ESRD (end stage renal disease) on dialysis: Code(s): N18.6 - End stage renal disease; Z99.2 - Dependence on renal dialysis Status: Chronic (7) Generalized weakness: Code(s): R53.1 - Weakness Status: Acute (8) Paroxysmal A-fib: Code(s): I48.0 - Paroxysmal atrial fibrillation Status: Acute (9) Hypertension: Qualifiers: Hypertension type: secondary to other renal disorders Qualified Code(s): I15.1 - Hypertension secondary to other renal disorders; N28.89 - Other specified disorders of kidney and ureter Code(s): I10 - Essential (primary) hypertension Status: Acute (10) Anxiety and depression: Code(s): F41.9 - Anxiety disorder, unspecified; F32.A - Depression, unspecified Status: Acute Plan This is a 60-year-old female was read from [facility] 3 days ago presented to the. Patient also has abdominal pain. On ED evaluation vitals were stable. Examination with generalized abdominal tenderness. Rectal exam Shows gross melena Hemoccult-positive. Laboratory evaluation showed no leukocytosis but hemoglobin of 7.3. Protonix and 1 unit of PRBC was given in the ED. Chem panel showed hyponatremia mild creatinine of 7.3. Consistent with end-stage renal disease EKG with sinus rhythm with nonspecific ST-T changes QTC of 549. Repeat H&H send and she will get 2 more units of packed red blood cell. CT abdomen pelvis showed no acute findings with high diverticulosis burden. GI has been consulted. Nephrology consulted for hemodialysis while inpatient. Continue to monitor H&H. She was recently transferred to [facility] and underwent EGD at that time on 01/01/2024 worried she was found to have polyp that was biopsied and was told she has hypertrophy of the stomach lining. EGD 10/2022 with nonerosive reflux disease at GE junction and moderate localized gastritis in the antrum with erythematous and edematous changes. Single superficial ulcer measuring 15 mm in mid esophagus grade C reflux esophagitis in the distal esophagus a few superficial ulcers in the antrum and a protruding ulcerated mass in the pre-pyloric region appearing partially obstructing. Biopsy of the antrum showed benign hyperplastic formula mucosa. Gastric mass which is benign hyperplastic foveolar mucosa partially obstructing pylorus found on EGD in October 2022. End-stage renal disease on hemodialysis Anxiety depression/bipolar disorder Breast cancer status post lumpectomy Coronary artery disease Gastroparesis Tardive dyskinesia KACIE History of peptic ulcer Hypertension Neuropathy Paroxysmal atrial fibrillation used to be on anticoagulation but now held due to recurrent anemia and GI bleed DVT prophylaxis SCDs Code status full code Subjective Date/time seen: 01/12/24 13:47 Interval history: Feels weak. Reports Melena. Reports lower abdominal discomfort. No nausea vomiting. Going for dialysis. Planned EGD Review of Systems Review of Systems: All systems reviewed & are unremarkable except as noted in HPI and below Exam Narrative: GENERAL: ill-appearing, pale not in acute distress HEAD: Normocephalic, atraumatic. EYES: PERRLA and EOMI. ENT: Nares clear, no rhinorrhea or epista
[2024-01-12 15:30] LABS: Hematocrit 27.2 % (37.0-47.0)
[2024-01-12] MEDS: allopurinoL 100 MG TABLET PO (15:40)
[2024-01-12] MEDS: NIFEdipine 30 MG TAB.ER.24 60 MG PO (15:40)
[2024-01-12] MEDS: FOLIC ACID 1 MG TABLET PO (15:42)
[2024-01-12] MEDS: LOSARTAN POTASSIUM 100 MG TABLET PO (15:42)
[2024-01-12] MEDS: ANASTROZOLE (*CHEMO) 1 MG TABLET PO (15:42)
[2024-01-12] MEDS: AMANTADINE HCL 100 MG CAPSULE PO (15:42)
[2024-01-12] MEDS: PANTOPRAZOLE SODIUM IV 40 MG VIAL IV PUSH (15:44)
[2024-01-12] MEDS: FUROSEMIDE 80 MG TABLET PO (16:37)
[2024-01-12] MEDS: SEVELAMER CARBONATE 800 MG TABLET 2400 MG PO (16:37)
[2024-01-12 18:05] LABS: Glucose Point of Care 217 mg/dl (65-105)
[2024-01-12 20:24] LABS: Glucose Point of Care 194 mg/dl (65-105)
[2024-01-12] MEDS: carvediloL 6.25 MG TABLET PO (21:37)
[2024-01-12] MEDS: ATORVASTATIN 20 MG TABLET PO (21:37)
[2024-01-12] MEDS: rOPINIRole HCL 0.5 MG TABLET 1.5 MG BY MOUTH (21:38)
[2024-01-12] MEDS: oxyCODONE HCL (*CRX) 2.5 MG TAB IR PO (21:38)
[2024-01-12] MEDS: MONTELUKAST SODIUM 10 MG TABLET PO (21:38)
[2024-01-12] MEDS: oxyCODONE/ACETAMINOPHEN (*CRX) 5-325 MG TABLET 1 TABLET PO (21:39)
[2024-01-12 21:45] LABS: Hemoglobin A1C 5.4 % (<5.7)
[2024-01-13] VITALS (16 sets, daily range): BP systolic 92–128; BP diastolic 41–49; PULSE 52–68; RESP 12–30; TEMP 36.3–36.4; O2SAT 97–100
[2024-01-13] MEDS: ALPRAZolam (*CRX) 0.5 MG TABLET PO (05:51)
[2024-01-13] MEDS: hydrALAZINE HCL 50 MG TABLET 100 MG PO (05:52)
[2024-01-13] MEDS: LEVOTHYROXINE SODIUM 50 MCG TABLET PO (05:52)
[2024-01-13 06:01] LABS: Basophils Absolute Auto 0.1 K/mm3 (0.0-0.1); Basophils Percent Auto 0.7 % (0.2-1.2); Eosinophils Absolute Auto 0.4 K/mm3 (0-0.3); Hematocrit 22.8 % (37.0-47.0); Hemoglobin 7.4 g/dL (12.0-15.0); Immature Granulocyte Absolute 0.07 K/mm3 (0.00-0.031); Lymphocytes Absolute Auto 1.52 K/mm3 (0.9-3.2); Mean Corpuscular HGB Conc 32.5 g/dl (32-36); Mean Corpuscular Hemoglobin 29.1 pg (26-34); Mean Corpuscular Volume 89.8 fl (80-100); Mean Platelet Volume 9.4 fl (7.4-10.4); Monocytes Absolute Auto 0.7 K/mm3 (0.1-0.6); Monocytes Percent Auto 9.8 % (2.6-8.5); Neutrophils Absolute Auto 4.5 K/mm3 (1.3-6.7); Neutrophils Percent Auto 62.5 % (45.5-73.1); Platelet Count Result 142 k/mm3 (150-375); Red Blood Count 2.54 M/mm3 (4.2-5.4); Red Cell Distribution Width 16.8 % (11.5-14.5); White Blood Count 7.3 K/mm3 (4.5-10.0)
[2024-01-13 06:07] LABS: Alanine Aminotransferase 8 U/L (6-35); Albumin Level 2.6 g/dL (3.5-5.1); Alkaline Phosphatase 121 U/L (38-126); Anion Gap 7 mmol/L (4-12); Aspartate Amino Transferase 15 U/L (14-36); Bilirubin,Total 0.4 mg/dL (0.2-1.3); Blood Urea Nitrogen 46 mg/dL (7-17); Calcium 8.6 mg/dL (8.4-10.2); Carbon Dioxide 28 mmol/L (22-30); Chloride 101 mmol/L (98-107); Estimated CRCL calculation 12 ml/min; Estimated Glomerular Filt Rate 11; Glucose 122 mg/dL (65-110); Magnesium 2.1 mg/dL (1.6-2.3); Potassium 3.8 mmol/L (3.4-5.0); Sodium 136 mmol/L (137-145)
[2024-01-13 06:48] LABS: Glucose Point of Care 146 mg/dl (65-105)
[2024-01-13] MEDS: PANTOPRAZOLE SODIUM IV 40 MG VIAL IV PUSH ×2 (09:02→21:33)
[2024-01-13] MEDS: oxyCODONE/ACETAMINOPHEN (*CRX) 5-325 MG TABLET 1 TABLET PO (09:02)
[2024-01-13] MEDS: oxyCODONE HCL (*CRX) 2.5 MG TAB IR PO (09:02)
[2024-01-13] MEDS: levETIRAcetam 250 MG TABLET 750 MG PO (09:03)
[2024-01-13] MEDS: carvediloL 6.25 MG TABLET PO (09:03)
[2024-01-13] MEDS: lamoTRIgine 50 MG TABLET 150 MG PO ×2 (09:04→21:32)
[2024-01-13] MEDS: rOPINIRole HCL 0.5 MG TABLET 1 MG PO (09:04)
[2024-01-13] MEDS: LOSARTAN POTASSIUM 100 MG TABLET PO (09:08)
--- NOTE | 2024-01-13 10:16 | PM.PNNEP ---
Progress Note: A&P Assessment and Plan (1) End stage renal disease: Code(s): N18.6 - End stage renal disease Status: Chronic Assessment and Plan: HD tomorrow continue outpatient schedule of M/W/F follow electrolytes, volume status, and clearance (2) GI bleed: Code(s): K92.2 - Gastrointestinal hemorrhage, unspecified Status: Acute Assessment and Plan: as noted by history of coffee ground emesis and melena low H/H noted as well PRBC transfusion per protocol recently at [facility] for same issues -- details of this hospitalization not clear Gastroenterology following -- EGD today (3) Hypertension: Qualifiers: Hypertension type: secondary to other renal disorders Qualified Code(s): I15.1 - Hypertension secondary to other renal disorders; N28.89 - Other specified disorders of kidney and ureter Code(s): I10 - Essential (primary) hypertension Status: Acute Assessment and Plan: reasonable control at this time follow trend of hemodynamics (4) Anemia: Qualifiers: Anemia type: due to chronic kidney disease Chronic kidney disease stage: on chronic dialysis Qualified Code(s): N18.6 - End stage renal disease; D63.1 - Anemia in chronic kidney disease; Z99.2 - Dependence on renal dialysis Code(s): D64.9 - Anemia, unspecified Status: Acute Assessment and Plan: partly related to ESRD and now complicated by #2 Epogen with HD follow trend on H/H (5) Generalized weakness: Code(s): R53.1 - Weakness Status: Acute Assessment and Plan: partly due to #2 and associated generalized deconditioning from recent previous hospitalization PT/OT if needed hopefully resolution of #2 with improve this issue Will continue to follow. Subjective Date/time seen: 01/13/24 10:16 Interval history: Follow-up for end stage renal disease on hemodialysis. Patient tolerated dialysis treatment yesterday along with PRBC transfusion with dialysis without any issues or problems; no apparent distress noted at the time of my visit; EGD planned for today. Exam Narrative: General: elderly female in NAD Heart: normal S1 and S2; no rub Lungs: clear to auscultation Abdomen: soft, nontender, nondistended, positive bowel sounds Extremities: no cyanosis or clubbing; no edema Skin: warm and dry Objective Data Vital Signs Vital Signs: Vital Signs Temp Pulse Resp BP Pulse Ox O2 Del Method 01/13/24 11:00 97.6 F 53 L 12 95/42 L 97 Room Air 01/13/24 10:00 55 L 01/13/24 08:00 63 01/13/24 08:00 Room Air 01/13/24 09:03 60 01/13/24 08:00 97.6 F 60 124/48 L 100 01/13/24 06:00 57 L 01/13/24 04:00 56 L 01/13/24 04:00 Room Air 01/13/24 04:00 97.5 F L 58 L 16 120/49 L 100 01/13/24 00:00 Room Air 01/13/24 02:00 59 L 01/13/24 00:00 67 01/13/24 00:00 97.4 F L 68 20 128/49 L 100 01/12/24 20:00 Room Air 01/12/24 22:00 72 01/12/24 20:00 74 01/12/24 21:37 71 01/12/24 19:59 97.5 F L 73 16 160/50 H 100 01/12/24 18:00 76 01/12/24 16:00 76 01/12/24 16:15 160/55 H 01/12/24 15:30 97 F L 76 16 124/41 L 100 01/12/24 14:29 97.5 F L 75 16 130/60 100 01/12/24 14:13 79 154/75 H 01/12/24 14:00 77 126/77 01/12/24 13:45 76 144/66 H 01/12/24 14:00 75 01/12/24 13:30 79 147/68 H 01/12/24 13:15 77 153/68 H 01/12/24 13:00 76 154/60 H 01/12/24 12:45 77 131/66 01/12/24 12:30 80 137/62 01/12/24 12:16 81 115/59 L 01/12/24 12:34 98.4 F 80 16 137/62 100 01/12/24 12:16 98.4 F 81 15 118/59 L Intake/Output Intake/Output: Intake & Output 01/10/24 01/11/24 01/12/24 01/13/24 23:59 23:59 23:59 23:59 Intake Total 1000 2320 25 Output Total 1000 Balance 1000 1320 25 Meds/Re
--- NOTE | 2024-01-13 10:52 | PC.NURSE ---
To GI Lab per [ stsreetcher.] Report given to [ ALFRED Hurtado @ 3082].
--- NOTE | 2024-01-13 11:09 | WPDANESEPPF ---
Anes - Initial Pre Proc Eval Procedure: Operation Date: 01/13/24 16:00 Proposed Procedures p Esophagogastroduodenoscopy - Ravi Palomo MD Date/Time: 01/13/24 11:09 Surgeon: Maddy Greer MD Pre Op Diagnosis: Upper GI BLEED Patient Data Age: 68 Gender: F Height: 1.73 m Weight: 80.3 kg Last Vital Signs Temp 97.6 F 01/13/24 08:00 Pulse 55 L 01/13/24 10:00 Resp 16 01/13/24 04:00 BP 124/48 L 01/13/24 08:00 Pulse Ox 100 01/13/24 08:00 O2 Del Method Room Air 01/13/24 08:00 O2 Flow Rate 0 01/12/24 10:30 FiO2 0 01/12/24 10:30 Allergies Allergy/AdvReac Type Severity Reaction Status Date / Time adhesive tape Allergy Rash Verified 01/12/24 02:47 NSAIDS (Non-Steroidal Allergy Other Verified 01/12/24 02:47 Anti-Inflamma pickles AdvReac Swelling Uncoded 01/11/24 23:24 of Lip/Tongue/Throat Home Medications Medication Instructions Recorded Confirmed Type allopurinol 100 mg tablet 100 mg PO DAILY 11/01/22 01/12/24 History alprazolam 0.5 mg tablet 0.5 mg PO QID PRN Anxiety 11/01/22 01/12/24 History fluticasone propionate 50 1 spray intranasal DAILY PRN 11/01/22 01/12/24 History mcg/actuation nasal allergies spray,suspension furosemide 80 mg tablet 80 mg PO DAILY 11/01/22 01/12/24 History lamotrigine 150 mg tablet 150 mg PO Q12H 11/01/22 01/12/24 History levetiracetam 750 mg tablet 750 mg PO DAILY 11/01/22 01/12/24 History losartan 50 mg tablet 100 mg PO DAILY 11/01/22 01/12/24 History montelukast 10 mg tablet 10 mg PO HS 11/01/22 01/12/24 History ropinirole 0.5 mg tablet See Rx Instructions .Route .COMPLEX 11/01/22 01/12/24 History tizanidine 4 mg tablet 4 mg PO BID PRN Muscle Spasm 11/01/22 01/12/24 History pantoprazole 40 mg tablet,delayed 40 mg PO QAM 4 weeks #28 tabs 03/22/23 01/12/24 Rx release (Protonix) albuterol sulfate 90 mcg/actuation 2 puff inhalation Q6H PRN 07/11/23 01/12/24 History aerosol inhaler Shortness Of Breath Or Wheezing amantadine HCl 100 mg capsule 100 mg PO WEEKLY 07/11/23 01/12/24 History anastrozole 1 mg tablet 1 mg PO DAILY 07/11/23 01/12/24 History carvedilol 6.25 mg tablet 6.25 mg PO Q12H 07/11/23 01/12/24 History cholecalciferol (vitamin D3) 125 5,000 unit PO DAILY 07/11/23 01/12/24 History mcg (5,000 unit) tablet docusate sodium 100 mg capsule 100 mg PO Q12H 07/11/23 01/12/24 History folic acid 1 mg tablet 1 mg PO DAILY 07/11/23 01/12/24 History insulin glargine U-300 conc 300 6 unit subcut DAILY 07/11/23 01/12/24 History unit/mL (3 mL) subcutaneous pen (Toujeo Max U-300 SoloStar) levothyroxine 50 mcg tablet 50 mcg PO DAILY 07/11/23 01/12/24 History nifedipine 60 mg tablet,extended 60 mg PO DAILY 07/11/23 01/12/24 History release oxycodone-acetaminophen 7.5 mg-325 1 tablet PO Q4-6H PRN Pain (Scale 07/11/23 01/12/24 History mg tablet Score 4-6) polyethylene glycol 3350 17 gram 17 g PO BID PRN Constipation 07/11/23 01/12/24 History oral powder packet (Miralax) sevelamer carbonate 800 mg tablet 2,400 mg PO TID 07/11/23 01/12/24 History vortioxetine 20 mg tablet 20 mg PO DAILY 07/11/23 01/12/24 History (Trintellix) atorvastatin 20 mg tablet 20 mg PO HS 01/12/24 01/12/24 History hydralazine 50 mg tablet 100 mg PO Q8H 01/12/24 01/12/24 History ketoconazole 2 % topical cream 1 applic topical DAILY 01/12/24 01/12/24 History naloxegol 25 mg tablet (Movantik) 25 mg PO DAILY 01/12/24 01/12/24 History Laboratory Tests 01/11/24 01/12/24 01/12/24 20:51 02:45 14:54 WBC RBC Hgb 9.0 L g/dL (12.0-15.0) Hct 27.2 L % (37.0-47.0) MCV MCH MCHC RDW Plt Count MPV Immature Gran % (Auto) Neut % (Auto) Lymph % (Auto) [place] % (Auto) Eos % (Auto) Baso % (Auto) Lymph # (Auto) [place] # (Auto) Eos
[2024-01-13] MEDS: BENZOCAINE (*SP) 60 ML SPRAY CAN (HURRICAINE) 1 SPRAY MUCOUS MEM (11:18)
[2024-01-13] MEDS: SODIUM CHLORIDE 0.9% IV 500 ML 10 ML IV CONT (11:29)
--- NOTE | 2024-01-13 12:05 | PC.NURSE ---
Returned from GI Lab. Report received from [ALFRED Carbone @ 4020 ].
[2024-01-13 12:40] LABS: Glucose Point of Care 121 mg/dl (65-105)
[2024-01-13] MEDS: FOLIC ACID 1 MG TABLET PO (12:51)
[2024-01-13] MEDS: NIFEdipine 30 MG TAB.ER.24 60 MG PO (12:51)
[2024-01-13] MEDS: allopurinoL 100 MG TABLET PO (12:51)
[2024-01-13] MEDS: FUROSEMIDE 80 MG TABLET PO (12:51)
[2024-01-13] MEDS: DOCUSATE SODIUM 100 MG CAPSULE PO ×2 (12:51→21:33)
[2024-01-13] MEDS: ANASTROZOLE (*CHEMO) 1 MG TABLET PO (12:51)
[2024-01-13 16:24] LABS: Glucose Point of Care 151 mg/dl (65-105)
--- NOTE | 2024-01-13 16:54 | PM.IMPN ---
Progress Note: A&P Assessment and Plan (1) GI bleed: Code(s): K92.2 - Gastrointestinal hemorrhage, unspecified Status: Acute (2) Acute on chronic anemia: Code(s): D64.9 - Anemia, unspecified Status: Acute (3) Iron deficiency anemia: Qualifiers: Iron deficiency anemia type: chronic blood loss Qualified Code(s): D50.0 - Iron deficiency anemia secondary to blood loss (chronic) Code(s): D50.9 - Iron deficiency anemia, unspecified Status: Acute (4) End stage renal disease: Code(s): N18.6 - End stage renal disease Status: Chronic (5) Neuropathy: Code(s): G62.9 - Polyneuropathy, unspecified Status: Acute (6) ESRD (end stage renal disease) on dialysis: Code(s): N18.6 - End stage renal disease; Z99.2 - Dependence on renal dialysis Status: Chronic (7) Generalized weakness: Code(s): R53.1 - Weakness Status: Acute (8) Paroxysmal A-fib: Code(s): I48.0 - Paroxysmal atrial fibrillation Status: Acute (9) Hypertension: Qualifiers: Hypertension type: secondary to other renal disorders Qualified Code(s): I15.1 - Hypertension secondary to other renal disorders; N28.89 - Other specified disorders of kidney and ureter Code(s): I10 - Essential (primary) hypertension Status: Acute (10) Anxiety and depression: Code(s): F41.9 - Anxiety disorder, unspecified; F32.A - Depression, unspecified Status: Acute Plan This is a 60-year-old female was read from [facility] 3 days ago presented to the. Patient also has abdominal pain. On ED evaluation vitals were stable. Examination with generalized abdominal tenderness. Rectal exam Shows gross melena Hemoccult-positive. Laboratory evaluation showed no leukocytosis but hemoglobin of 7.3. Protonix and 1 unit of PRBC was given in the ED. Chem panel showed hyponatremia mild creatinine of 7.3. Consistent with end-stage renal disease EKG with sinus rhythm with nonspecific ST-T changes QTC of 549. Repeat H&H send and she will get 2 more units of packed red blood cell. CT abdomen pelvis showed no acute findings with high diverticulosis burden. GI has been consulted. Nephrology consulted for hemodialysis while inpatient. Continue to monitor H&H. She was recently transferred to [facility] and underwent EGD at that time on 01/01/2024 worried she was found to have polyp that was biopsied and was told she has hypertrophy of the stomach lining. EGD 10/2022 with nonerosive reflux disease at GE junction and moderate localized gastritis in the antrum with erythematous and edematous changes. Single superficial ulcer measuring 15 mm in mid esophagus grade C reflux esophagitis in the distal esophagus a few superficial ulcers in the antrum and a protruding ulcerated mass in the pre-pyloric region appearing partially obstructing. Biopsy of the antrum showed benign hyperplastic formula mucosa. Status post EGD 01/13/2024: Single large polyp observing the antrum but also could be enlarged fold noted in from signs of bleeding ulcer or hematin. Biopsies were taken. Await biopsy report. Monitor H&H and Protonix daily. Gastric mass which is benign hyperplastic foveolar mucosa partially obstructing pylorus found on EGD in October 2022. End-stage renal disease on hemodialysis Anxiety depression/bipolar disorder Breast cancer status post lumpectomy Coronary artery disease Gastroparesis Tardive dyskinesia KACIE History of peptic ulcer Hypertension Neuropathy Paroxysmal atrial fibrillation used to be on anticoagulation but now held due to recurrent anemia and GI bleed DVT prophylaxis SCDs Code status full code Subjective Date/time seen: 01/13/24 16:54 Interval history: Underwent EGD today. Large polyp observant antrum. Inflammation but no signs of bleeding. Biopsies were obtained. No further melena reported. H&H trend reviewed. Review of Syst
[2024-01-13] MEDS: SEVELAMER CARBONATE 800 MG TABLET 2400 MG PO (17:55)
[2024-01-13] MEDS: MONTELUKAST SODIUM 10 MG TABLET PO (21:32)
[2024-01-13] MEDS: rOPINIRole HCL 0.5 MG TABLET 1.5 MG BY MOUTH (21:32)
[2024-01-13] MEDS: ATORVASTATIN 20 MG TABLET PO (21:32)
[2024-01-13 21:49] LABS: Glucose Point of Care 123 mg/dl (65-105)
[2024-01-14] VITALS (24 sets, daily range): BP systolic 109–147; BP diastolic 42–84; PULSE 50–70; RESP 16–18; TEMP 35.9–37; O2SAT 97–100
[2024-01-14] MEDS: oxyCODONE HCL (*CRX) 2.5 MG TAB IR PO ×3 (03:53→21:20)
[2024-01-14] MEDS: oxyCODONE/ACETAMINOPHEN (*CRX) 5-325 MG TABLET 1 TABLET PO ×2 (03:54→21:22)
[2024-01-14 04:42] LABS: Basophils Absolute Auto 0.1 K/mm3 (0.0-0.1); Basophils Percent Auto 0.9 % (0.2-1.2); Eosinophils Absolute Auto 0.5 K/mm3 (0-0.3); Eosinophils Percent Auto 7.1 % (0-4.4); Hemoglobin 7.9 g/dL (12.0-15.0); Immature Granulocyte Absolute 0.05 K/mm3 (0.00-0.031); Immature Granulocyte Percent A 0.7 % (0-0.5); Lymphocytes Absolute Auto 1.43 K/mm3 (0.9-3.2); Lymphocytes Percent Auto 20.6 % (18.3-44.2); Mean Corpuscular HGB Conc 30.4 g/dl (32-36); Mean Corpuscular Hemoglobin 28.7 pg (26-34); Mean Corpuscular Volume 94.5 fl (80-100); Mean Platelet Volume 9.6 fl (7.4-10.4); Monocytes Absolute Auto 0.5 K/mm3 (0.1-0.6); Monocytes Percent Auto 7.2 % (2.6-8.5); Neutrophils Absolute Auto 4.4 K/mm3 (1.3-6.7); Neutrophils Percent Auto 63.5 % (45.5-73.1); Platelet Count Result 171 k/mm3 (150-375); Red Blood Count 2.75 M/mm3 (4.2-5.4); Red Cell Distribution Width 17.2 % (11.5-14.5); White Blood Count 6.9 K/mm3 (4.5-10.0)
[2024-01-14 05:05] LABS: Alanine Aminotransferase 9 U/L (6-35); Albumin Level 3.3 g/dL (3.5-5.1); Alkaline Phosphatase 144 U/L (38-126); Anion Gap 9 mmol/L (4-12); Aspartate Amino Transferase 18 U/L (14-36); Bilirubin,Total 0.4 mg/dL (0.2-1.3); Blood Urea Nitrogen 52 mg/dL (7-17); Calcium 8.4 mg/dL (8.4-10.2); Carbon Dioxide 26 mmol/L (22-30); Chloride 99 mmol/L (98-107); Estimated CRCL calculation 9 ml/min; Estimated Glomerular Filt Rate 8; Glucose 115 mg/dL (65-110); Magnesium 2.3 mg/dL (1.6-2.3); Potassium 4.3 mmol/L (3.4-5.0); Sodium 134 mmol/L (137-145)
[2024-01-14] MEDS: LEVOTHYROXINE SODIUM 50 MCG TABLET PO (06:28)
--- NOTE | 2024-01-14 10:10 | PM.PNNEP ---
Progress Note: A&P Assessment and Plan (1) End stage renal disease: Code(s): N18.6 - End stage renal disease Status: Chronic Assessment and Plan: HD today continue outpatient schedule of M/W/F follow electrolytes, volume status, and clearance (2) GI bleed: Code(s): K92.2 - Gastrointestinal hemorrhage, unspecified Status: Acute Assessment and Plan: as noted by history of coffee ground emesis and melena low H/H noted as well on admission PRBC transfusion per protocol recently at [facility] for same issues -- details of this hospitalization not clear Gastroenterology following: s/p EGD -- no active bleeding noted/found (3) Hypertension: Qualifiers: Hypertension type: secondary to other renal disorders Qualified Code(s): I15.1 - Hypertension secondary to other renal disorders; N28.89 - Other specified disorders of kidney and ureter Code(s): I10 - Essential (primary) hypertension Status: Acute Assessment and Plan: reasonable control at this time follow trend of hemodynamics (4) Anemia: Qualifiers: Anemia type: due to chronic kidney disease Chronic kidney disease stage: on chronic dialysis Qualified Code(s): N18.6 - End stage renal disease; D63.1 - Anemia in chronic kidney disease; Z99.2 - Dependence on renal dialysis Code(s): D64.9 - Anemia, unspecified Status: Acute Assessment and Plan: partly related to ESRD and now complicated by #2 Epogen with HD follow trend on H/H (5) Generalized weakness: Code(s): R53.1 - Weakness Status: Acute Assessment and Plan: partly due to #2 and associated generalized deconditioning from recent previous hospitalization PT/OT ordered may need SNF versus rehb on discharge Will continue to follow. Subjective Date/time seen: 01/14/24 10:10 Interval history: Follow-up for end stage renal disease on hemodialysis. Tolerating dialysis treatment at the time of my visit (seen on HD at 10:00AM); no apparent distress noted; H/H relatively stable since last PRBC transfusion; no other issues/events overnight or earlier this morning. Exam Narrative: General: elderly female in NAD Heart: normal S1 and S2; no rub Lungs: clear to auscultation Abdomen: soft, nontender, nondistended, positive bowel sounds Extremities: no cyanosis or clubbing; no edema Skin: warm and intact Objective Data Vital Signs Vital Signs: Vital Signs Temp Pulse Resp BP Pulse Ox O2 Del Method FiO2 01/14/24 10:00 60 136/61 01/14/24 09:30 55 L 130/60 01/14/24 09:00 55 L 114/61 01/14/24 08:45 52 L 129/57 L 01/14/24 08:30 53 L 120/59 L 01/14/24 09:15 56 L 124/55 L 01/14/24 08:14 51 L 109/51 L 01/14/24 08:05 97.7 F 53 L 16 110/54 L 100 01/14/24 08:05 100 01/14/24 06:24 97.5 F L 50 L 18 121/53 L 100 01/14/24 03:52 115/45 L 01/14/24 00:29 97.7 F 60 16 120/46 L 98 01/13/24 21:38 104/41 L 01/13/24 20:00 Room Air 0 01/13/24 21:30 58 L 92/45 L 01/13/24 16:00 97.4 F L 53 L 18 108/47 L 100 01/13/24 14:55 112/45 L 01/13/24 12:00 97.5 F L 53 L 18 107/44 L 100 01/13/24 11:47 59 L 24 H 111/46 L 100 Room Air 01/13/24 11:39 53 L 30 H 106/48 L 100 Room Air Intake/Output Intake/Output: Intake & Output 01/11/24 01/12/24 01/13/24 01/14/24 23:59 23:59 23:59 23:59 Intake Total 1000 2320 565 120 Output Total 1000 Balance 1000 1320 565 120 Meds/Results Medications: Active Medications Generic Name Dose Route Start Last Admin Trade Name Freq PRN Reason Stop Dose Admin Albuterol 2 puff 01/12/24 06:45 Albuterol Sulfate (*Sp) Aerosol 1 Puff INHALATION Q6HRT PRN Shortness Of Breath Or Wheezing Allopurinol 100 mg 01/12/24 09:00 01/13/24 12:51 Allopurinol 100 Mg Tablet PO 100
[2024-01-14] MEDS: EPOETIN ALFA-EPBX 20,000 UNITS/ML VIAL 20000 UNITS IV PUSH (10:11)
[2024-01-14 11:49] LABS: Glucose Point of Care 103 mg/dl (65-105)
[2024-01-14] MEDS: lamoTRIgine 50 MG TABLET 150 MG PO ×2 (12:39→21:14)
[2024-01-14] MEDS: carvediloL 6.25 MG TABLET PO ×2 (12:40→21:13)
[2024-01-14] MEDS: FOLIC ACID 1 MG TABLET PO (12:40)
[2024-01-14] MEDS: rOPINIRole HCL 0.5 MG TABLET 1 MG PO (12:40)
[2024-01-14] MEDS: levETIRAcetam 250 MG TABLET 750 MG PO (12:40)
[2024-01-14] MEDS: DOCUSATE SODIUM 100 MG CAPSULE PO ×2 (12:41→21:14)
[2024-01-14] MEDS: allopurinoL 100 MG TABLET PO (12:41)
[2024-01-14] MEDS: ANASTROZOLE (*CHEMO) 1 MG TABLET PO (12:41)
[2024-01-14] MEDS: SEVELAMER CARBONATE 800 MG TABLET 2400 MG PO ×2 (12:42→16:36)
[2024-01-14] MEDS: PANTOPRAZOLE SODIUM IV 40 MG VIAL IV PUSH ×2 (12:42→21:17)
--- NOTE | 2024-01-14 14:31 | WPDGIPROGNO ---
Progress Note: A&P Assessment and Plan (1) GI bleed: Qualifiers: GI bleed type/associated pathology: melena Qualified Code(s): K92.1 - Melena Code(s): K92.2 - Gastrointestinal hemorrhage, unspecified Status: Acute Assessment and Plan: egd without signs of bleeding noted enlarged antrum- bx reviewed- benign foveolar hyperplasia protonix daily tolerating diet monitor for more signs of bleeding will follow as needed (2) Acute on chronic anemia: Code(s): D64.9 - Anemia, unspecified Status: Acute Assessment and Plan: stable h/o dialysis with chronic anemia (3) Gastric foveolar hyperplasia: Code(s): K31.89 - Other diseases of stomach and duodenum Status: Acute (4) End stage renal disease: Code(s): N18.6 - End stage renal disease Status: Chronic (5) Gastric mass: Code(s): K31.89 - Other diseases of stomach and duodenum Status: Acute Subjective Date/time seen: 01/14/24 14:31 Interval history: egd yesterday, noted prominent tissue at antrum no more signs of bleeding she is getting dialysis today Review of Systems Review of Systems: All systems reviewed & are unremarkable except as noted in HPI and below Exam Const: General: comfortable and no acute distress HENMT: Face/Nose/Sinus: Normal nares present Eyes: General: appearance normal, both eyes and all related structures Neck: Neck: supple Resp: Auscultation: clear to auscultation bilaterally Cardio: Rate: regular rate Rhythm: regular rhythm GI: Inspection: non-distended GI Palp: Yes Soft to palpation and No Tenderness to palpation present (GI) Auscultation: normal bowel sounds Skin: General skin exam: normal color Neuro: Speech: normal speech Motor exam (neuro): 5/5 motor strength present throughout Extrem: General: normal to inspection Psych: Mental Status: mental status grossly normal Objective Data Vital Signs Vital Signs: Vital Signs - 24 hr 01/13/24 14:55 01/13/24 16:00 01/13/24 21:30 Temperature 97.4 F L Pulse Rate 53 L 58 L Respiratory Rate 18 Blood Pressure 112/45 L 108/47 L 92/45 L Pulse Oximetry 100 Oxygen Delivery Fraction of Inspired Oxygen 01/13/24 20:00 01/13/24 21:38 01/14/24 00:29 Temperature 97.7 F Pulse Rate 60 Respiratory Rate 16 Blood Pressure 104/41 L 120/46 L Pulse Oximetry 98 Oxygen Delivery Room Air Fraction of Inspired Oxygen 0 01/14/24 03:52 01/14/24 06:24 01/14/24 08:05 Temperature 97.5 F L Pulse Rate 50 L Respiratory Rate 18 Blood Pressure 115/45 L 121/53 L Pulse Oximetry 100 Oxygen Delivery Fraction of Inspired Oxygen 100 01/14/24 08:05 01/14/24 08:14 01/14/24 09:15 Temperature 97.7 F Pulse Rate 53 L 51 L 56 L Respiratory Rate 16 Blood Pressure 110/54 L 109/51 L 124/55 L Pulse Oximetry 100 Oxygen Delivery Fraction of Inspired Oxygen 01/14/24 08:30 01/14/24 08:45 01/14/24 09:00 Temperature Pulse Rate 53 L 52 L 55 L Respiratory Rate Blood Pressure 120/59 L 129/57 L 114/61 Pulse Oximetry Oxygen Delivery Fraction of Inspired Oxygen 01/14/24 09:30 01/14/24 10:00 01/14/24 10:15 Temperature Pulse Rate 55 L 60 57 L Respiratory Rate Blood Pressure 130/60 136/61 123/54 L Pulse Oximetry Oxygen Delivery Fraction of Inspired Oxygen 01/14/24 11:00 01/14/24 09:45 01/14/24 10:30 Temperature Pulse Rate 59 L 56 L 59 L Respiratory Rate Blood Pressure 130/59 L 144/61 H 140/56 L Pulse Oximetry Oxygen Delivery Fraction of Inspired Oxygen 01/14/24 10:45 01/14/24 11:15 01/14/24 11:45 Temperature Pulse Rate 60 59 L 70 Respiratory Rate Blood Pressure 120/59 L 119/50 L 121/84 Pulse Oximetry Oxygen Delivery Fraction of Inspired Oxygen 01/14/24 11:53 01/14/24 11:30 01/14/24 12:40 Temperature 97.5 F L Pulse Rate 58 L 57 L 60 Respiratory Rate 16 Blood Pressure
[2024-01-14] MEDS: hydrALAZINE HCL 50 MG TABLET 100 MG PO (14:44)
--- NOTE | 2024-01-14 14:54 | PM.IMPN ---
Progress Note: A&P Assessment and Plan (1) Iron deficiency anemia: Qualifiers: Iron deficiency anemia type: chronic blood loss Qualified Code(s): D50.0 - Iron deficiency anemia secondary to blood loss (chronic) Code(s): D50.9 - Iron deficiency anemia, unspecified Status: Acute (2) End stage renal disease: Code(s): N18.6 - End stage renal disease Status: Chronic (3) History of upper gastrointestinal bleeding: Code(s): Z87.19 - Personal history of other diseases of the digestive system Status: Acute (4) Anemia: Qualifiers: Anemia type: due to chronic kidney disease Chronic kidney disease stage: on chronic dialysis Qualified Code(s): N18.6 - End stage renal disease; D63.1 - Anemia in chronic kidney disease; Z99.2 - Dependence on renal dialysis Code(s): D64.9 - Anemia, unspecified Status: Acute Plan No active bleeding on EGD. Hemoglobin remains low but stable. She had vomiting after she was evaluated, she reports chronic issue with this her gastroparesis. Unfortunately unable to take therapeutic regimens due to prolonged QT interval. We will check EKG again. She had vomiting. Possibly her stomach does not agree with the food. She says the food taste bad. She is otherwise hemodynamically stable. We discussed the patient returning home in the setting of her hemoglobin being stable. She then reported she had a fall a few weeks ago and has not received therapy. She lives alone and her son has been pink someone to stay the night with her. She has no assistive devices for walking and has been hanging on to furniture. Therefore, will have therapy evaluate this patient for debility. She will need to stay for this to prevent fall at home. Full code Subjective Date/time seen: 01/14/24 14:54 Interval history: No acute overnight events. Patient does not want to eat the hospital food because it does not taste good and they are too many restrictions. Review of Systems Review of Systems: All systems reviewed & are unremarkable except as noted in HPI and below (Subjective) Exam Const: General: comfortable and no acute distress Eyes: Pupils: Equal, round and reactive pupils present Neck: Neck: supple Resp: Effort & Inspection: normal respiratory effort Auscultation: clear to auscultation bilaterally Cardio: Rate: regular rate Rhythm: regular rhythm GI: GI Palp: Yes Soft to palpation Extrem: General: no edema Objective Data Vital Signs Vital Signs: Vital Signs - 24 hr 01/13/24 14:55 01/13/24 16:00 01/13/24 21:30 Temperature 97.4 F L Pulse Rate 53 L 58 L Respiratory Rate 18 Blood Pressure 112/45 L 108/47 L 92/45 L Pulse Oximetry 100 Oxygen Delivery Fraction of Inspired Oxygen 01/13/24 20:00 01/13/24 21:38 01/14/24 00:29 Temperature 97.7 F Pulse Rate 60 Respiratory Rate 16 Blood Pressure 104/41 L 120/46 L Pulse Oximetry 98 Oxygen Delivery Room Air Fraction of Inspired Oxygen 0 01/14/24 03:52 01/14/24 06:24 01/14/24 08:05 Temperature 97.5 F L Pulse Rate 50 L Respiratory Rate 18 Blood Pressure 115/45 L 121/53 L Pulse Oximetry 100 Oxygen Delivery Fraction of Inspired Oxygen 100 01/14/24 08:05 01/14/24 08:14 01/14/24 09:15 Temperature 97.7 F Pulse Rate 53 L 51 L 56 L Respiratory Rate 16 Blood Pressure 110/54 L 109/51 L 124/55 L Pulse Oximetry 100 Oxygen Delivery Fraction of Inspired Oxygen 01/14/24 08:30 01/14/24 08:45 01/14/24 09:00 Temperature Pulse Rate 53 L 52 L 55 L Respiratory Rate Blood Pressure 120/59 L 129/57 L 114/61 Pulse Oximetry Oxygen Delivery Fraction of Inspired Oxygen 01/14/24 09:30 01/14/24 10:00 01/14/24 10:15 Temperature Pulse Rate 55 L 60 57 L Respiratory Rate Blood Pressure 130/60 136/61 123/54 L Pulse Oximetry Oxygen Delivery Fraction of Inspired Oxygen 01/14/24 11:00 01/14/24 09
[2024-01-14 16:14] LABS: Glucose Point of Care 114 mg/dl (65-105)
[2024-01-14] MEDS: MONTELUKAST SODIUM 10 MG TABLET PO (21:14)
[2024-01-14] MEDS: ATORVASTATIN 20 MG TABLET PO (21:14)
[2024-01-14] MEDS: rOPINIRole HCL 0.5 MG TABLET 1.5 MG BY MOUTH (21:14)
[2024-01-14 21:43] LABS: Glucose Point of Care 119 mg/dl (65-105)
[2024-01-15] VITALS (11 sets, daily range): BP systolic 114–160; BP diastolic 30–58; PULSE 56–65; RESP 14–24; TEMP 36.1–37.2; O2SAT 94–99
[2024-01-15] MEDS: ALPRAZolam (*CRX) 0.5 MG TABLET PO ×2 (00:12→11:26)
--- NOTE | 2024-01-15 05:00 | ECG_ITS ---
Test Date: 2024-01-15 09:11:58 Measurements Intervals [place] Rate: 57 P: 59 FL: 252 QRS: -2 QRSD: 109 T: 79 QT: 519 QTc: 508 Interpretive Statements SINUS BRADYCARDIA WITH FIRST DEGREE AV BLOCK MODERATE ST DEPRESSION [0.05+ mV ST DEPRESSION] Compared to ECG 01/11/2024 20:51:40 NO SIGNIFICANT CHANGES Electronically Signed On 01-15-2024 09:59:26 CDT by Haylee Vargas M.D.
[2024-01-15] MEDS: LEVOTHYROXINE SODIUM 50 MCG TABLET PO (06:41)
[2024-01-15 07:00] LABS: Albumin Level 2.9 g/dL (3.5-5.1); Anion Gap 7 mmol/L (4-12); Blood Urea Nitrogen 18 mg/dL (7-17); Calcium 8.1 mg/dL (8.4-10.2); Carbon Dioxide 31 mmol/L (22-30); Chloride 98 mmol/L (98-107); Estimated CRCL calculation 14 ml/min; Estimated Glomerular Filt Rate 13; Glucose 111 mg/dL (65-110); Phosphorus 3.6 mg/dL (2.5-4.5); Potassium 4.3 mmol/L (3.4-5.0); Sodium 136 mmol/L (137-145)
[2024-01-15] MEDS: allopurinoL 100 MG TABLET PO (08:43)
[2024-01-15] MEDS: lamoTRIgine 50 MG TABLET 150 MG PO ×2 (08:43→20:04)
[2024-01-15] MEDS: NIFEdipine 30 MG TAB.ER.24 60 MG PO (08:43)
[2024-01-15] MEDS: SEVELAMER CARBONATE 800 MG TABLET 2400 MG PO ×3 (08:43→16:52)
[2024-01-15] MEDS: PANTOPRAZOLE SODIUM IV 40 MG VIAL IV PUSH ×2 (08:43→20:13)
[2024-01-15] MEDS: ANASTROZOLE (*CHEMO) 1 MG TABLET PO (08:43)
[2024-01-15] MEDS: carvediloL 6.25 MG TABLET PO ×2 (08:44→20:13)
[2024-01-15] MEDS: rOPINIRole HCL 0.5 MG TABLET 1 MG PO (08:44)
[2024-01-15] MEDS: LOSARTAN POTASSIUM 100 MG TABLET PO (08:44)
[2024-01-15] MEDS: FOLIC ACID 1 MG TABLET PO (08:44)
[2024-01-15] MEDS: FUROSEMIDE 80 MG TABLET PO (08:44)
[2024-01-15] MEDS: levETIRAcetam 250 MG TABLET 750 MG PO (08:44)
[2024-01-15] MEDS: DOCUSATE SODIUM 100 MG CAPSULE PO ×2 (08:44→20:05)
[2024-01-15] MEDS: INSULIN GLARGINE (*BKC) 100 UNITS/ML 6 UNITS SUB-Q (08:51)
[2024-01-15 08:53] LABS: Glucose Point of Care 149 mg/dl (65-105)
[2024-01-15] MEDS: oxyCODONE/ACETAMINOPHEN (*CRX) 5-325 MG TABLET 1 TABLET PO ×2 (09:57→20:05)
[2024-01-15] MEDS: oxyCODONE HCL (*CRX) 2.5 MG TAB IR PO ×2 (09:57→20:05)
[2024-01-15 11:34] LABS: Glucose Point of Care 146 mg/dl (65-105)
--- NOTE | 2024-01-15 12:29 | PCPTNOTE ---
On 01/15/24, the student, [Roberta Richardson], provided care and completed [facility] documentation on this patient. I have reviewed the student's documentation and agree with the findings.
[2024-01-15] MEDS: hydrALAZINE HCL 50 MG TABLET 100 MG PO ×2 (13:08→22:02)
[2024-01-15] MEDS: SODIUM CHLORIDE 0.9% IV 250 ML 30 ML IV CONT (13:09)
--- NOTE | 2024-01-15 14:13 | PM.PNNEP ---
Progress Note: A&P Assessment and Plan (1) End stage renal disease: Code(s): N18.6 - End stage renal disease Status: Chronic Assessment and Plan: HD tomorrow continue outpatient schedule of M/W/F follow electrolytes, volume status, and clearance (2) GI bleed: Code(s): K92.2 - Gastrointestinal hemorrhage, unspecified Status: Acute Assessment and Plan: as noted by history of coffee ground emesis and melena low H/H noted as well on admission PRBC transfusion per protocol recently at [facility] for same issues -- details of this hospitalization not clear Gastroenterology following: s/p EGD -- no active bleeding noted/found (3) Hypertension: Qualifiers: Hypertension type: secondary to other renal disorders Qualified Code(s): I15.1 - Hypertension secondary to other renal disorders; N28.89 - Other specified disorders of kidney and ureter Code(s): I10 - Essential (primary) hypertension Status: Acute Assessment and Plan: reasonable control at this time follow trend of hemodynamics (4) Anemia: Qualifiers: Anemia type: due to chronic kidney disease Chronic kidney disease stage: on chronic dialysis Qualified Code(s): N18.6 - End stage renal disease; D63.1 - Anemia in chronic kidney disease; Z99.2 - Dependence on renal dialysis Code(s): D64.9 - Anemia, unspecified Status: Acute Assessment and Plan: partly related to ESRD and now complicated by #2 Epogen with HD follow trend on H/H (5) Generalized weakness: Code(s): R53.1 - Weakness Status: Acute Assessment and Plan: partly due to #2 and associated generalized deconditioning from recent previous hospitalization PT/OT ordered may need SNF versus rehb on discharge Will continue to follow. Subjective Date/time seen: 01/15/24 14:13 Interval history: Follow-up for end stage renal disease on hemodialysis. Tolerated dialysis treatment yesterday without any issues or problems; feels quite weak and fatigued and given her low H/H by AM labs, PRBC transfusion done today; no other events overnight or earlier this morning to report. Exam Narrative: General: elderly female in NAD Heart: normal S1 and S2; no rub Lungs: clear to auscultation Abdomen: soft, nontender, nondistended, positive bowel sounds Extremities: no cyanosis or clubbing; no edema Skin: no rash Objective Data Vital Signs Vital Signs: Vital Signs Temp Pulse Resp BP Pulse Ox O2 Del Method 01/15/24 14:08 98.8 F 64 24 H 151/53 H 97 01/15/24 13:31 Room Air 01/15/24 08:40 159/56 H 01/15/24 10:55 Room Air 01/15/24 07:51 97.4 F L 57 L 20 137/41 L 96 01/15/24 06:34 97.0 F L 56 L 14 114/30 L 99 01/15/24 00:13 97.9 F 65 20 156/52 H 97 01/14/24 20:00 Room Air 01/14/24 21:13 67 01/14/24 21:10 98.6 F 65 16 127/42 L 97 Intake/Output Intake/Output: Intake & Output 01/12/24 01/13/24 01/14/24 01/15/24 23:59 23:59 23:59 23:59 Intake Total 2320 565 1050 1292 Output Total 1000 2000 0 Balance 1320 565 -950 1292 Meds/Results Medications: Active Medications Generic Name Dose Route Start Last Admin Trade Name Freq PRN Reason Stop Dose Admin Albuterol 2 puff 01/12/24 06:45 Albuterol Sulfate (*Sp) Aerosol 1 Puff INHALATION Q6HRT PRN Shortness Of Breath Or Wheezing Allopurinol 100 mg 01/12/24 09:00 01/15/24 08:43 Allopurinol 100 Mg Tablet PO 100 mg DAILY PHYLICIA Administration Alprazolam 0.5 mg 01/12/24 06:45 01/15/24 11:26 Alprazolam (*Crx) 0.5 Mg Tablet PO 0.5 mg QID PRN Administration Anxiety/Nausea Amantadine HCl 100 mg 01/12/24 09:00 01/12/24 15:42 Amantadine Hcl 100 Mg Capsule PO 100 mg WEEKLY PHYLICIA Administration Anastrozole 1 mg 01/12/24 09:00 01/15/24 08:43 Anastrozole (*Chemo) 1 Mg Tablet PO 1 mg DAILY S
--- NOTE | 2024-01-15 15:07 | PM.IMPN ---
Progress Note: A&P Assessment and Plan (1) Iron deficiency anemia: Qualifiers: Iron deficiency anemia type: chronic blood loss Qualified Code(s): D50.0 - Iron deficiency anemia secondary to blood loss (chronic) Code(s): D50.9 - Iron deficiency anemia, unspecified Status: Acute (2) End stage renal disease: Code(s): N18.6 - End stage renal disease Status: Chronic (3) History of upper gastrointestinal bleeding: Code(s): Z87.19 - Personal history of other diseases of the digestive system Status: Acute (4) Anemia: Qualifiers: Anemia type: due to chronic kidney disease Chronic kidney disease stage: on chronic dialysis Qualified Code(s): N18.6 - End stage renal disease; D63.1 - Anemia in chronic kidney disease; Z99.2 - Dependence on renal dialysis Code(s): D64.9 - Anemia, unspecified Status: Acute Plan No active bleeding on EGD. Hemoglobin remains low but stable. She had vomiting after she was evaluated, she reports chronic issue with this her gastroparesis. Unfortunately unable to take therapeutic regimens due to prolonged QT interval. We will check EKG again. She had vomiting. Possibly her stomach does not agree with the food. She says the food taste bad. She is otherwise hemodynamically stable. We discussed the patient returning home in the setting of her hemoglobin being stable. She then reported she had a fall a few weeks ago and has not received therapy. She lives alone and her son has been pink someone to stay the night with her. She has no assistive devices for walking and has been hanging on to furniture. Therefore, will have therapy evaluate this patient for debility. She will need to stay for this to prevent fall at home. 02/07/2015 the patient's hemoglobin is 7.0. She feels very exhausted and would like a blood transfusion. Will transfuse 1 unit of PRBC for symptomatic anemia. Spoke with Nephrology as well they are giving large dose of EPO October. Unclear if this is her trying to catch up from her recent GI bleed however, if she continues to not sustain hemoglobin over 7 than Hematology consult would be necessary to help. Full code Subjective Date/time seen: 01/15/24 15:07 Interval history: Patient reports feeling exhausted and too weak today. She denies any bowel movement. No chest pain. No shortness of breaths Review of Systems Review of Systems: All systems reviewed & are unremarkable except as noted in HPI and below (Subjective) Exam Const: General: comfortable and no acute distress Eyes: Pupils: Equal, round and reactive pupils present Neck: Neck: supple Resp: Effort & Inspection: normal respiratory effort Auscultation: clear to auscultation bilaterally Cardio: Rate: regular rate Rhythm: regular rhythm GI: GI Palp: Yes Soft to palpation Extrem: General: no edema Objective Data Vital Signs Vital Signs: Vital Signs - 24 hr 01/14/24 21:10 01/14/24 21:13 01/14/24 20:00 Temperature 98.6 F Pulse Rate 65 67 Respiratory Rate 16 Blood Pressure 127/42 L Pulse Oximetry 97 Oxygen Delivery Room Air 01/15/24 00:13 01/15/24 06:34 01/15/24 07:51 Temperature 97.9 F 97.0 F L 97.4 F L Pulse Rate 65 56 L 57 L Respiratory Rate 20 14 20 Blood Pressure 156/52 H 114/30 L 137/41 L Pulse Oximetry 97 99 96 Oxygen Delivery 01/15/24 10:55 01/15/24 08:40 01/15/24 13:31 Temperature Pulse Rate Respiratory Rate Blood Pressure 159/56 H Pulse Oximetry Oxygen Delivery Room Air Room Air 01/15/24 14:22 01/15/24 14:38 Temperature 98.4 F 98.8 F Pulse Rate 63 64 Respiratory Rate 18 24 H Blood Pressure 146/49 H 151/53 H Pulse Oximetry 96 97 Oxygen Delivery Intake/Output Intake/Output: Intake & Output 01/12/24 01/13/24 01/14/24 01/15/24 23:59 23:59 23:59 23:59 Intake Total 2320 565 1050 462 Output Total 1000 2000 0 Balance 1320 565 -950 462 Meds/Results Medications
[2024-01-15 17:01] LABS: Glucose Point of Care 135 mg/dl (65-105)
[2024-01-15 19:36] LABS: Glucose Point of Care 152 mg/dl (65-105)
[2024-01-15] MEDS: rOPINIRole HCL 0.5 MG TABLET 1.5 MG BY MOUTH (20:04)
[2024-01-15] MEDS: ATORVASTATIN 20 MG TABLET PO (20:05)
[2024-01-15] MEDS: MONTELUKAST SODIUM 10 MG TABLET PO (20:05)
[2024-01-16] VITALS (21 sets, daily range): BP systolic 109–163; BP diastolic 49–71; PULSE 57–66; RESP 16–18; TEMP 36.4–37; O2SAT 95–100
[2024-01-16] MEDS: oxyCODONE/ACETAMINOPHEN (*CRX) 5-325 MG TABLET 1 TABLET PO (04:15)
[2024-01-16] MEDS: oxyCODONE HCL (*CRX) 2.5 MG TAB IR PO (04:15)
[2024-01-16] MEDS: ALPRAZolam (*CRX) 0.5 MG TABLET PO ×2 (04:15→14:11)
[2024-01-16] MEDS: hydrALAZINE HCL 50 MG TABLET 100 MG PO (05:25)
[2024-01-16] MEDS: LEVOTHYROXINE SODIUM 50 MCG TABLET PO (05:26)
[2024-01-16 06:24] LABS: Basophils Percent Auto 0.2 % (0.2-1.2); Eosinophils Absolute Auto 0.3 K/mm3 (0-0.3); Eosinophils Percent Auto 2.6 % (0-4.4); Hematocrit 29.1 % (37.0-47.0); Hemoglobin 8.9 g/dL (12.0-15.0); Immature Granulocyte Absolute 0.05 K/mm3 (0.00-0.031); Immature Granulocyte Percent A 0.5 % (0-0.5); Lymphocytes Absolute Auto 0.61 K/mm3 (0.9-3.2); Lymphocytes Percent Auto 6.3 % (18.3-44.2); Mean Corpuscular HGB Conc 30.6 g/dl (32-36); Mean Corpuscular Hemoglobin 29.4 pg (26-34); Mean Platelet Volume 9.7 fl (7.4-10.4); Monocytes Absolute Auto 0.6 K/mm3 (0.1-0.6); Monocytes Percent Auto 6.6 % (2.6-8.5); Neutrophils Absolute Auto 8.2 K/mm3 (1.3-6.7); Neutrophils Percent Auto 83.8 % (45.5-73.1); Platelet Count Result 156 k/mm3 (150-375); Red Blood Count 3.03 M/mm3 (4.2-5.4); Red Cell Distribution Width 17.3 % (11.5-14.5); White Blood Count 9.7 K/mm3 (4.5-10.0)
[2024-01-16 06:34] LABS: Albumin Level 3.3 g/dL (3.5-5.1); Anion Gap 10 mmol/L (4-12); Blood Urea Nitrogen 25 mg/dL (7-17); Calcium 8.8 mg/dL (8.4-10.2); Carbon Dioxide 29 mmol/L (22-30); Chloride 97 mmol/L (98-107); Estimated CRCL calculation 9 ml/min; Estimated Glomerular Filt Rate 7; Glucose 147 mg/dL (65-110); Magnesium 2.2 mg/dL (1.6-2.3); Phosphorus 4.3 mg/dL (2.5-4.5); Potassium 4.2 mmol/L (3.4-5.0); Sodium 136 mmol/L (137-145)
[2024-01-16] MEDS: EPOETIN ALFA 20,000 UNITS/ML VIAL 20000 UNITS IV PUSH (10:34)
--- NOTE | 2024-01-16 10:35 | PM.PNNEP ---
Progress Note: A&P Assessment and Plan (1) End stage renal disease: Code(s): N18.6 - End stage renal disease Status: Chronic Assessment and Plan: HD today continue outpatient schedule of M/W/F follow electrolytes, volume status, and clearance (2) GI bleed: Code(s): K92.2 - Gastrointestinal hemorrhage, unspecified Status: Acute Assessment and Plan: as noted by history of coffee ground emesis and melena low H/H noted as well on admission PRBC transfusion per protocol recently at [facility] for same issues -- details of this hospitalization not clear Gastroenterology following: s/p EGD -- no active bleeding noted/found (3) Hypertension: Qualifiers: Hypertension type: secondary to other renal disorders Qualified Code(s): I15.1 - Hypertension secondary to other renal disorders; N28.89 - Other specified disorders of kidney and ureter Code(s): I10 - Essential (primary) hypertension Status: Acute Assessment and Plan: reasonable control at this time follow trend of hemodynamics (4) Anemia: Qualifiers: Anemia type: due to chronic kidney disease Chronic kidney disease stage: on chronic dialysis Qualified Code(s): N18.6 - End stage renal disease; D63.1 - Anemia in chronic kidney disease; Z99.2 - Dependence on renal dialysis Code(s): D64.9 - Anemia, unspecified Status: Acute Assessment and Plan: partly related to ESRD and now complicated by #2 Epogen with HD follow trend on H/H (5) Generalized weakness: Code(s): R53.1 - Weakness Status: Acute Assessment and Plan: partly due to #2 and associated generalized deconditioning from recent previous hospitalization PT/OT ordered may need SNF versus rehb on discharge Will continue to follow. Subjective Date/time seen: 01/16/24 10:35 Interval history: Follow-up for end stage renal disease on hemodialysis. Tolerating hemodialysis treatment reasonably well at the time of my visit (seen on HD at 10:25AM); tolerated PRBC transfusion yesterday as well with improvement/appropriate incrementation in H/H; no apparent distress noted; no other issues/events overnight or earlier this AM. Exam Narrative: General: elderly female in NAD Heart: normal S1 and S2; no rub Lungs: clear to auscultation Abdomen: soft, nontender, nondistended, positive bowel sounds Extremities: no cyanosis or clubbing; no edema Skin: no nodules Objective Data Vital Signs Vital Signs: Vital Signs Temp Pulse Resp BP Pulse Ox O2 Del Method 01/16/24 10:30 60 144/64 H 01/16/24 10:15 61 146/66 H 01/16/24 10:00 61 147/64 H 01/16/24 09:45 61 150/65 H 01/16/24 09:29 60 123/55 L 01/16/24 09:35 98.1 F 59 L 18 134/61 97 01/16/24 09:30 60 125/49 L 01/16/24 05:28 98.2 F 57 L 16 152/51 H 100 01/15/24 20:00 Room Air 01/15/24 20:32 98.2 F 62 18 160/58 H 99 01/15/24 20:13 64 01/15/24 16:00 97.9 F 61 22 H 140/44 L 94 01/15/24 16:38 98.9 F 62 20 132/40 L 96 01/15/24 15:38 98.2 F 62 18 150/46 H 99 01/15/24 14:38 98.8 F 64 24 H 151/53 H 97 Intake/Output Intake/Output: Intake & Output 01/13/24 01/14/24 01/15/24 01/16/24 23:59 23:59 23:59 23:59 Intake Total 565 1050 1292 170 Output Total 2000 0 3004 Balance 565 950 1292 -9424 Meds/Results Medications: Active Medications Generic Name Dose Route Start Last Admin Trade Name Freq PRN Reason Stop Dose Admin Albuterol 2 puff 01/12/24 06:45 Albuterol Sulfate (*Sp) Aerosol 1 Puff INHALATION Q6HRT PRN Shortness Of Breath Or Wheezing Allopurinol 100 mg 01/12/24 09:00 01/16/24 14:09 Allopurinol 100 Mg Tablet PO 100 mg DAILY PHYLICIA Administration Alprazolam 0.5 mg 01/12/24 06:45 01/16/24 14:11 Alprazolam (*Crx) 0.5 Mg Tablet PO 0.5 mg QID PRN Administration
--- NOTE | 2024-01-16 12:33 | PM.DS ---
DS: Admitting Diagnosis Discharge Date January 16, 2024 Admitting Diagnosis Melena DS: Discharge Diagnosis Discharge Diagnosis (1) Gastric foveolar hyperplasia: Code(s): K31.89 - Other diseases of stomach and duodenum Status: Acute (2) End stage renal disease: Code(s): N18.6 - End stage renal disease Status: Chronic (3) Acute on chronic anemia: Code(s): D64.9 - Anemia, unspecified Status: Acute (4) Melena: Code(s): K92.1 - Melena Status: Acute DS: Summary Hospital Course Hospital Course: A 68-year-old female with multiple medical comorbidities including ESRD on dialysis, recent admission to [facility] for GI bleed, presents with a complaint of melena. Patient admitted for suspected GI bleed. EGD performed by Dr. Palomo on 01/12 demonstrated no esophagitis, a single large polyp observed in the antrum which could be enlarged fold, inflammation but no signs of bleeding, no ulcer, no hematin. Biopsies taken. She received a total of 4 units PRBCs. Her hemoglobin at its lowest was 6.7 on 01/12/2024. On day of discharge on 01/16/2024 it is 8.9. The patient is feeling better and ready to go home. She has been receiving Epogen with dialysis. No complaint of black/dark stool or blood per rectum. She is discharged to home in stable condition with home health for therapy and strengthening. Advised to follow with PCP and the usual systems checkout mechanic within a week to which they agree. Time Spent with Patient Time attestation: Total time spent providing and/or coordinating discharge services: Time spent: Greater than 30 minutes Exam Const: General: comfortable and no acute distress Eyes: Pupils: Equal, round and reactive pupils present Neck: Neck: supple Resp: Effort & Inspection: normal respiratory effort Auscultation: clear to auscultation bilaterally Cardio: Rate: regular rate Rhythm: regular rhythm GI: Inspection: non-distended GI Palp: Yes Soft to palpation and No Tenderness to palpation present (GI) Extrem: General: no edema DS: Data Data Completed and Pending Completed studies during hospitalization: Pending at discharge 01/13/24 11:25 Surgical [PTH] Routine Labs on day of discharge: Labs from last 24 hours 01/16/24 01/15/24 01/15/24 05:35 19:13 16:45 WBC 9.7 RBC 3.03 L Hgb 8.9 L Hct 29.1 L MCV 96.0 MCH 29.4 MCHC 30.6 L RDW 17.3 H Plt Count 156 MPV 9.7 Immature Gran % (Auto) 0.5 Neut % (Auto) 83.8 H Lymph % (Auto) 6.3 L [place] % (Auto) 6.6 Eos % (Auto) 2.6 Baso % (Auto) 0.2 Lymph # (Auto) 0.61 L [place] # (Auto) 0.6 Eos # (Auto) 0.3 Baso # (Auto) 0.0 Abs Immat Gran (auto) 0.05 H Absolute Neuts (auto) 8.2 H Absolute Nucleated RBC 0.000 Nucleated RBC % 0.0 Sodium 136 L Potassium 4.2 Chloride 97 L Carbon Dioxide 29 Anion Gap 10 BUN 25 H Creatinine 5.80 H Estim Creat Clear Calc 9 Estimated GFR 7 L Glucose 147 H POC Capillary Glucose 152 H 135 H Calcium 8.8 Phosphorus 4.3 Magnesium 2.2 Albumin 3.3 L Blood Type Antibody Screen Crossmatch 01/15/24 01/11/24 11:52 20:51 WBC RBC Hgb Hct MCV MCH MCHC RDW Plt Count MPV Immature Gran % (Auto) Neut % (Auto) Lymph % (Auto) [place] % (Auto) Eos % (Auto) Baso % (Auto) Lymph # (Auto) [place] # (Auto) Eos # (Auto) Baso # (Auto) Abs Immat Gran (auto) Absolute Neuts (auto) Absolute Nucleated RBC Nucleated RBC % Sodium Potassium Chloride Carbon Dioxide Anion Gap BUN Creatinine Estim Creat Clear Calc Estimated GFR Glucose POC Capillary Glucose Calcium Phosphorus Magnesium Albumin Blood Type O Positive Antibody Screen Negative Crossmatch See Detail See Detail Discharge Plan Discharge Attending physician on discharge: Melissa Hamilton
--- NOTE | 2024-01-16 12:50 | PCPTNOTE ---
Patient gone to dialysis all morning. Will check back in afternoon.
[2024-01-16] MEDS: ANASTROZOLE (*CHEMO) 1 MG TABLET PO (14:09)
[2024-01-16] MEDS: allopurinoL 100 MG TABLET PO (14:09)
[2024-01-16] MEDS: TIZANIDINE HCL 4 MG TABLET PO (14:09)
[2024-01-16] MEDS: FOLIC ACID 1 MG TABLET PO (14:10)
[2024-01-16] MEDS: rOPINIRole HCL 0.5 MG TABLET 1 MG PO (14:10)
[2024-01-16] MEDS: carvediloL 6.25 MG TABLET PO (14:10)
[2024-01-16] MEDS: NIFEdipine 30 MG TAB.ER.24 60 MG PO (14:10)
[2024-01-16] MEDS: levETIRAcetam 250 MG TABLET 750 MG PO (14:11)
[2024-01-16] MEDS: lamoTRIgine 50 MG TABLET 150 MG PO (14:11)
[2024-01-16] MEDS: LOSARTAN POTASSIUM 100 MG TABLET PO (14:11)
[2024-01-16] MEDS: FUROSEMIDE 80 MG TABLET PO (14:11)
[2024-01-16] MEDS: DOCUSATE SODIUM 100 MG CAPSULE PO (14:12)
--- NOTE | 2024-01-16 15:17 | PCPTNOTE ---
Upon reattempt to see patient, she had been discharged.
== END 2024-01-16 14:35 | disposition home or self-care (01) | DRG 377 ==
LOC: ANHED 01-12 01:10 → ANHIMU 01-12 01:55 → ANH3MEDSUR 01-14 06:20
PROVIDERS: Internal Medicine; Internal Medicine Gastroenterology; Internal Medicine Nephrology; Admitting Provider Internal Medicine; Emergency Provider Physician Assistant; PCP Internal Medicine; Visit Provider General Practice
PROC: 0DJ08ZZ Inspection of Upper Intestinal Tract, Via Natural or Artificial Opening Endoscopic (ICD-10-PCS; CPT 43235; principal; 2024-01-13 16:00)
DX: K92.1 Melena (principal); N18.6 End stage renal disease; I12.0 Hypertensive chronic kidney disease with stage 5 chronic kidney disease or end stage renal disease; Z99.2 Dependence on renal dialysis; Z85.3 Personal history of malignant neoplasm of breast; D50.9 Iron deficiency anemia, unspecified; D63.1 Anemia in chronic kidney disease; E11.22 Type 2 diabetes mellitus with diabetic chronic kidney disease; E11.42 Type 2 diabetes mellitus with diabetic polyneuropathy; F31.9 Bipolar disorder, unspecified; G47.33 Obstructive sleep apnea (adult) (pediatric); I25.10 Atherosclerotic heart disease of native coronary artery without angina pectoris; I48.0 Paroxysmal atrial fibrillation; K31.89 Other diseases of stomach and duodenum; K31.84 Gastroparesis; Z90.49 Acquired absence of other specified parts of digestive tract; Z98.41 Cataract extraction status, right eye; Z98.42 Cataract extraction status, left eye; Z96.1 Presence of intraocular lens; Z87.891 Personal history of nicotine dependence
CPT/HCPCS: 36415; 36430; 74177; 80053; 80069; 82948; 83036; 83735; 85014; 85018; 85025; 85610; 85730; 86706; 86850; 86900; 86901; 86923; 87340; 88305; 93005; 96361; 96374; 97161; 97166; 99285; A9270; G0257; G0378; J0360; J1596; J1815; J2371; J2470; J2704; J7030; J7040; J7050; P9016; P9047; Q4081; Q5105; Q9967

== ENCOUNTER 2024-02-17 19:20 | Emergency (ER) | payer MEDICARE, MEDICAID, SELFPAY ==
--- NOTE | ~2024-02-17 | CT_ITS ---
EXAMINATION: CT abdomen pelvis w con DATE: 02/17/2024 20:23 INDICATION: UGIB s/p endoscopy TECHNIQUE: Computed tomography (CT) of the abdomen and pelvis was performed with 100 mL Omnipaque-350 intravenous contrast. Automated exposure control and iterative reconstruction technique were employe d. The dose-length product was 1003.19 mGy-cm. COMPARISON: 01/11/2024. FINDINGS: Lower thorax: Motion artifact in the lower lungs. Mild bibasilar atelectasis. Left lower lobe scar. S mall bilateral pleural fluid collections. Liver: Normal. Biliary/Gallbladder: Gallbladder is absent. Mild intra and extrahepatic bile duct dilation, likely se condary to cholecystectomy. Pancreas: Moderate atrophy. Spleen: Normal. Adrenals:No mass. Kidneys: Bilateral renal atrophy. Multiple nonobstructing bilateral renal calcifications. 1.5 cm inde terminate density right midpole lesion. GI tract: Multiple surgical clips in the gastric antrum. Small volume active extravasation in the gas tric antrum. Low-density intramural fluid surrounding the gastric antrum, pylorus, and proximal duode num. No large bowel dilation. Hyperdensities in the distal sigmoid and rectum. Appendix not visualize d. Diverticulosis without diverticulitis. Mesentery/Peritoneum: No ascites, mass, or free air. Retroperitoneum: No mass. Atherosclerotic abdominal aortic and/or arterial calcifications. Pelvis: Partially distended urinary bladder with mild wall thickening and inflammatory change. Absent uterus. Normal ovaries.. Soft Tissues: Uncomplicated periumbilical fat-containing ventral hernia. Chronic rim calcified fluid collection in the anterior midline lower abdominal wall. Bones: No acute osseous finding. IMPRESSION: Small bilateral pleural effusions. Small volume active hemorrhage at the site of recent procedure in the gastric antrum, with moderate i ntramural hematoma involving the gastric antrum, pylorus, and proximal duodenum. No pneumoperitoneum or intraperitoneal fluid. Hyperdensities in the distal sigmoid and rectum may represent dislodged jazmín gical clips. 1.5 cm indeterminate right midpole renal lesion, recommend nonemergent but timely outpatient CT or MR I without and with contrast for further evaluation. Cystitis versus bladder wall thickening from incomplete distention. Correlate with urinalysis. Results reported telephonically to Dr. Vo by Dr. Almanza at 8:44 PM on 02/17/2024. Reviewed, dictated and finalized at location K. IMPRESSION: Small bilateral pleural effusions. Small volume active hemorrhage at the site of recent procedure in the gastric a ntrum, with moderate intramural hematoma involving the gastric antrum, pylorus, and proximal duodenum. No pneumoperitoneum or intraperitoneal fluid. Hyperdens ities in the distal sigmoid and rectum may represent dislodged surgical clips. 1.5 cm indeterminate right midpole renal lesion, recommend nonemergent but time ly outpatient CT or MRI without and with contrast for further evaluation. Cystitis versus bladder wall thickening from incomplete distention. Correlate w ith urinalysis. Results reported telephonically to Dr. Vo by Dr. Almanza at 8:44 PM on 024.
[2024-02-17 19:22] VITALS: BP 212/74; PULSE 71; RESP 18; TEMP 36.9; O2SAT 97
--- NOTE | 2024-02-17 19:30 | ECG_ITS ---
Test Date: 2024-02-17 19:33:46 Measurements Intervals [place] Rate: 69 P: 68 [place]: 206 QRS: 10 QRSD: 90 T: 205 QT: 509 QTc: 548 Interpretive Statements SINUS RHYTHM WITH FIRST DEGREE AV BLOCK DELAYED PRECORDIAL R/S TRANSITION BORDERLINE ST-T WAVE ABNORMALITY ANTEROLAT/HIGH LAT LEADS BASELINE ARTIFACT- I, II, III, AVR, AVL, AVF, V1-V6 BORDERLINE ECG Compared to ECG 01/15/2024 09:11:58 HEART RATE HAS INCREASED Electronically Signed On 02-17-2024 20:31:04 CDT by Kade Cruz D.O.
[2024-02-17] MEDS: dexAMETHasone SOD PHOS INJ 10 MG/ML 1 ML VIAL IV PUSH (19:33)
--- NOTE | 2024-02-17 19:33 | ED.GIBLEED ---
HPI - GI Bleed General Chief complaint: GI Bleed Stated complaint: VOMITING BLOOD S/P ENDOSCOPY Time Seen by Provider: 02/17/24 19:21 History of Present Illness HPI Narrative: Patient with history of dialysis GI bleed, who had colonoscopy/endoscopy done today at [facility], presents with vomiting blood. She states that since she woke up from the procedure she had stomach pains and nausea, but that she had been discharged anyway. When she got home she had been given a mercedes flavored slushie and then threw up a lot of reddish liquid. Related Data Home Medications Medication Instructions Recorded Confirmed allopurinol 100 mg tablet 100 mg PO DAILY 11/01/22 01/12/24 alprazolam 0.5 mg tablet 0.5 mg PO QID PRN Anxiety 11/01/22 01/12/24 fluticasone propionate 50 1 spray intranasal DAILY PRN 11/01/22 01/12/24 mcg/actuation nasal allergies spray,suspension furosemide 80 mg tablet 80 mg PO DAILY 11/01/22 01/12/24 lamotrigine 150 mg tablet 150 mg PO Q12H 11/01/22 01/12/24 levetiracetam 750 mg tablet 750 mg PO DAILY 11/01/22 01/12/24 losartan 50 mg tablet 100 mg PO DAILY 11/01/22 01/12/24 montelukast 10 mg tablet 10 mg PO HS 11/01/22 01/12/24 ropinirole 0.5 mg tablet See Rx Instructions .Route .COMPLEX 11/01/22 01/12/24 tizanidine 4 mg tablet 4 mg PO BID PRN Muscle Spasm 11/01/22 01/12/24 albuterol sulfate 90 mcg/actuation 2 puff inhalation Q6H PRN 07/11/23 01/12/24 aerosol inhaler Shortness Of Breath Or Wheezing amantadine HCl 100 mg capsule 100 mg PO WEEKLY 07/11/23 01/12/24 anastrozole 1 mg tablet 1 mg PO DAILY 07/11/23 01/12/24 carvedilol 6.25 mg tablet 6.25 mg PO Q12H 07/11/23 01/12/24 cholecalciferol (vitamin D3) 125 5,000 unit PO DAILY 07/11/23 01/12/24 mcg (5,000 unit) tablet docusate sodium 100 mg capsule 100 mg PO Q12H 07/11/23 01/12/24 folic acid 1 mg tablet 1 mg PO DAILY 07/11/23 01/12/24 insulin glargine U-300 conc 300 6 unit subcut DAILY 07/11/23 01/12/24 unit/mL (3 mL) subcutaneous pen (Toujeo Max U-300 SoloStar) levothyroxine 50 mcg tablet 50 mcg PO DAILY 07/11/23 01/12/24 nifedipine 60 mg tablet,extended 60 mg PO DAILY 07/11/23 01/12/24 release oxycodone-acetaminophen 7.5 mg-325 1 tablet PO Q4-6H PRN Pain (Scale 07/11/23 01/12/24 mg tablet Score 4-6) polyethylene glycol 3350 17 gram 17 g PO BID PRN Constipation 07/11/23 01/12/24 oral powder packet (Miralax) sevelamer carbonate 800 mg tablet 2,400 mg PO TID 07/11/23 01/12/24 vortioxetine 20 mg tablet 20 mg PO DAILY 07/11/23 01/12/24 (Trintellix) atorvastatin 20 mg tablet 20 mg PO HS 01/12/24 01/12/24 hydralazine 50 mg tablet 100 mg PO Q8H 01/12/24 01/12/24 ketoconazole 2 % topical cream 1 applic topical DAILY 01/12/24 01/12/24 naloxegol 25 mg tablet (Movantik) 25 mg PO DAILY 01/12/24 01/12/24 Allergies Allergy/AdvReac Type Severity Reaction Status Date / Time adhesive tape Allergy Rash Verified 01/12/24 02:47 NSAIDS (Non-Steroidal Allergy Other Verified 01/12/24 02:47 Anti-Inflamma pickles AdvReac Swelling Uncoded 01/11/24 23:24 of Lip/Tongue/Throat Review of Systems Review of Systems: All systems reviewed & are unremarkable except as noted in HPI and below [facility] Past Medical History Medical History (Updated 02/17/24 @ 20:22 by Mercy Vo MD) Anxiety and depression Bipolar depression Breast cancer Constipation Coronary artery disease End stage renal disease On hemodialysis with peritoneal dialysis catheter in place Esophageal ulcer Gastric foveolar hyperplasia Gastric mass Benign hyperplastic foveolar mucosa partially obstructing pylorus found on EGD in October 2022. Repeat EGD two weeks later showed gastritis and NERD but no mass. She was treated with PPI. Gastric ulcer Gastroparesis History of esophageal ulcer Hypertension Iron deficiency anemia Neuropathy Obstructive sleep apnea Patient has a history of severe obstructive sleep apnea diagnosed in 2005 with recommended CPAP of 18 Paroxysmal A-fib Tardive dyskinesia
[2024-02-17 19:34] LABS: Basophils Percent Auto 0.4 % (0.2-1.2); Eosinophils Absolute Auto 0.1 K/mm3 (0-0.3); Eosinophils Percent Auto 1.1 % (0-4.4); Hematocrit 28.2 % (37.0-47.0); Hemoglobin 8.7 g/dL (12.0-15.0); Immature Granulocyte Absolute 0.05 K/mm3 (0.00-0.031); Immature Granulocyte Percent A 0.6 % (0-0.5); Lymphocytes Absolute Auto 1.23 K/mm3 (0.9-3.2); Lymphocytes Percent Auto 14.6 % (18.3-44.2); Mean Corpuscular HGB Conc 30.9 g/dl (32-36); Mean Corpuscular Hemoglobin 28.8 pg (26-34); Mean Corpuscular Volume 93.4 fl (80-100); Mean Platelet Volume 9.2 fl (7.4-10.4); Monocytes Absolute Auto 0.7 K/mm3 (0.1-0.6); Monocytes Percent Auto 8.8 % (2.6-8.5); Neutrophils Absolute Auto 6.3 K/mm3 (1.3-6.7); Neutrophils Percent Auto 74.5 % (45.5-73.1); Platelet Count Result 167 k/mm3 (150-375); Red Blood Count 3.02 M/mm3 (4.2-5.4); Red Cell Distribution Width 15.1 % (11.5-14.5); White Blood Count 8.4 K/mm3 (4.5-10.0)
[2024-02-17] MEDS: PANTOPRAZOLE SODIUM IV 40 MG VIAL 80 MG IV PUSH (19:34)
[2024-02-17] MEDS: diphenhydrAMINE HCl INJ 50 MG/ML VIAL 25 MG IV PUSH (19:34)
[2024-02-17] MEDS: OCTREOTIDE ACETATE 50 MCG/ML VIAL IV PUSH (19:35)
[2024-02-17] MEDS: TRIMETHOBENZAMIDE HCL 200 MG/2 ML VIAL IM (19:38)
[2024-02-17] MEDS: hydrALAZINE HCL 20 MG/ML VIAL 10 MG IV PUSH (19:38)
[2024-02-17 19:44] LABS: INR 1.2; Prothrombin Time 15.9 Seconds (11.1-14.7)
[2024-02-17 19:45] VITALS: BP 207/60; PULSE 76; RESP 24; O2SAT 94
[2024-02-17 19:45] LABS: Lactic Acid Reflex 2.4 mmol/L (0.7-2.0); Partial Thromboplastin Time 28.3 Seconds (22.3-36.8)
[2024-02-17 19:46] LABS: Alanine Aminotransferase 12 U/L (6-35); Albumin Level 3.7 g/dL (3.5-5.1); Alkaline Phosphatase 225 U/L (38-126); Anion Gap 12 mmol/L (4-12); Aspartate Amino Transferase 21 U/L (14-36); Bilirubin,Total 0.5 mg/dL (0.2-1.3); Blood Urea Nitrogen 28 mg/dL (7-17); Calcium 8.9 mg/dL (8.4-10.2); Carbon Dioxide 30 mmol/L (22-30); Chloride 97 mmol/L (98-107); Estimated CRCL calculation 11 ml/min; Estimated Glomerular Filt Rate 9; Glucose 177 mg/dL (65-110); Lipase 47 U/L (23-300); Potassium 4.2 mmol/L (3.4-5.0); Sodium 139 mmol/L (137-145)
[2024-02-17 19:50] VITALS: BP 162/58; PULSE 72; RESP 18; O2SAT 92
[2024-02-17] MEDS: FAMOTIDINE 20 MG/2 ML VIAL IV PUSH (19:59)
[2024-02-17] MEDS: MAGNESIUM SULF 2 GM/WATER 50ML 2 GM/50 ML BAG IVPB (20:00)
[2024-02-17 20:07] VITALS: BP 164/63; PULSE 81; RESP 24; O2SAT 94
--- NOTE | 2024-02-17 20:11 | PC.NURSE ---
Pt wheeled to ct via stretcher with this rn, messi ocampo, and elect equip maint eng. Pt on diagnostic cardiac sonographer for transport. No distress noted.
--- NOTE | 2024-02-17 20:34 | PC.NURSE ---
[facility] ALFRED Valentin report ALFRED Sanchez U ER report
--- NOTE | 2024-02-17 20:35 | PC.NURSE ---
Pt placed on [employer] stretcher, monitor, and magnesium transferred to their pump ton continue during flight at this time.
[2024-02-17 20:36] VITALS: BP 154/65; PULSE 69; RESP 18; TEMP 36.7; O2SAT 96
[2024-02-17 22:31] LABS: Reflex Lactic Acid Yes or No Add Lactic
== END 2024-02-17 20:41 | disposition short-term general hospital (02) ==
PROVIDERS: Emergency Provider Emergency Medicine; PCP Internal Medicine
DX: K91.840 Postprocedural hemorrhage of a digestive system organ or structure following a digestive system procedure (principal); T85.528A Displacement of other gastrointestinal prosthetic devices, implants and grafts, initial encounter; Y73.8 Miscellaneous gastroenterology and urology devices associated with adverse incidents, not elsewhere classified; I48.0 Paroxysmal atrial fibrillation; I25.10 Atherosclerotic heart disease of native coronary artery without angina pectoris; I12.0 Hypertensive chronic kidney disease with stage 5 chronic kidney disease or end stage renal disease; E11.22 Type 2 diabetes mellitus with diabetic chronic kidney disease; N18.6 End stage renal disease; Z99.2 Dependence on renal dialysis; K31.84 Gastroparesis; D50.9 Iron deficiency anemia, unspecified; G47.33 Obstructive sleep apnea (adult) (pediatric); G24.01 Drug induced subacute dyskinesia; T50.905D Adverse effect of unspecified drugs, medicaments and biological substances, subsequent encounter; F31.9 Bipolar disorder, unspecified; F41.9 Anxiety disorder, unspecified; Z87.891 Personal history of nicotine dependence; Z90.49 Acquired absence of other specified parts of digestive tract; Z96.1 Presence of intraocular lens; Z98.42 Cataract extraction status, left eye; Z98.41 Cataract extraction status, right eye; Z79.4 Long term (current) use of insulin; Z79.899 Other long term (current) drug therapy; R94.31 Abnormal electrocardiogram [ECG] [EKG]; R93.41 Abnormal radiologic findings on diagnostic imaging of renal pelvis, ureter, or bladder
CPT/HCPCS: 36415; 74177; 80053; 83605; 83690; 83735; 85025; 85610; 85730; 86850; 86880; 86900; 86901; 86902; 93005; 96372; 96374; 96375; 99285; J0360; J1100; J1200; J2354; J2470; J3250; J3475; Q9967

== ENCOUNTER 2024-03-19 22:59 | Inpatient (IN) | payer MEDICARE, MEDICAID, SELFPAY ==
--- NOTE | ~2024-03-19 | XR_ITS ---
EXAMINATION: XR chest 2V DATE: 03/24/2024 14:56 INDICATION: Pneumonia TECHNIQUE: frontal and lateral views of the chest were obtained. COMPARISON: Chest radiograph dated 03/19/2024 FINDINGS: Opacities at the posterior lung bases consistent with small bilateral pleural effusions and associate d basilar atelectasis and/or pneumonia. There is a mild increased interstitial pattern in the bilater al mid and lower lung zones, decreased since the prior study consistent with improving mild pulmonary edema. No pneumothorax. Heart size is normal. Large-bore dual-lumen right internal jugular central v enous catheter with distal tip at the caudal superior vena cava. Left pectoral implantable cardiac mo nitor. IMPRESSION: 1. Decreasing mild pulmonary edema. 2. Small bilateral pleural effusions with associated basilar atelectasis and/or pneumonia. Reviewed, dictated and finalized at location A.
--- NOTE | ~2024-03-19 | XR_ITS ---
XR chest 2V Ordering provider: Fabian Lipscomb MD History: 68 years Female with . sob . Comparison: January 01, 2024 FINDINGS: MEDIASTINUM: The cardiac silhouette is moderately enlarged. Right Permacath with the tip overlying th e superior vena cava. Device is projected over the heart. Congestive merly more on the right side. LUNGS: No effusions or pneumothorax. Bilateral interstitial changes. Opacification the right lung bas e seen suggestive of pneumonia. OTHER: No free air under the diaphragm. IMPRESSION: Cardiomegaly with cardiac decompensation and pulmonary edema. Right basal pneumonia. Reviewed, dictated and finalized at location A.
[2024-03-19 22:57] VITALS: PULSE 75; RESP 28; TEMP 36.8; O2SAT 98
[2024-03-19 23:03] VITALS: PULSE 76
--- NOTE | 2024-03-19 23:03 | ECG_ITS ---
Test Date: 2024-03-19 23:05:10 Measurements Intervals [place] Rate: 73 P: 84 IN: 216 QRS: 76 QRSD: 98 T: 72 QT: 477 QTc: 529 Interpretive Statements SINUS RHYTHM WITH FIRST DEGREE AV BLOCK MODERATE ST DEPRESSION [0.05+ mV ST DEPRESSION] PROLONGED QT INTERVAL ABNORMAL ECG Compared to ECG 02/17/2024 19:33:46 NO SIGNIFICANT CHANGE Electronically Signed On 03-20-2024 09:49:20 CDT by Fabian Kathleen M.D.
--- NOTE | 2024-03-19 23:15 | ED_ITS ---
HPI - SOB/Dyspnea General Chief Complaint: Shortness of Breath/Dyspnea Stated Complaint: difficulty breathing Source: patient Mode of arrival: EMS Limitations: no limitations History of Present Illness HPI Narrative: 68-year-old female on dialysis presenting for shortness of breath worsening for the last few days. She has had a lot issues lately especially with anemia. Previous smoker. Previously had COPD they believe. Dialysis Friday. Did get dialysis today. Related Data Home Medications Medication Instructions Recorded Confirmed allopurinol 100 mg tablet 100 mg PO DAILY 11/01/22 01/12/24 alprazolam 0.5 mg tablet 0.5 mg PO QID PRN Anxiety 11/01/22 01/12/24 fluticasone propionate 50 1 spray intranasal DAILY PRN 11/01/22 01/12/24 mcg/actuation nasal allergies spray,suspension furosemide 80 mg tablet 80 mg PO DAILY 11/01/22 01/12/24 lamotrigine 150 mg tablet 150 mg PO Q12H 11/01/22 01/12/24 levetiracetam 750 mg tablet 750 mg PO DAILY 11/01/22 01/12/24 losartan 50 mg tablet 100 mg PO DAILY 11/01/22 01/12/24 montelukast 10 mg tablet 10 mg PO HS 11/01/22 01/12/24 ropinirole 0.5 mg tablet See Rx Instructions .Route .COMPLEX 11/01/22 01/12/24 tizanidine 4 mg tablet 4 mg PO BID PRN Muscle Spasm 11/01/22 01/12/24 albuterol sulfate 90 mcg/actuation 2 puff inhalation Q6H PRN 07/11/23 01/12/24 aerosol inhaler Shortness Of Breath Or Wheezing amantadine HCl 100 mg capsule 100 mg PO WEEKLY 07/11/23 01/12/24 anastrozole 1 mg tablet 1 mg PO DAILY 07/11/23 01/12/24 carvedilol 6.25 mg tablet 6.25 mg PO Q12H 07/11/23 01/12/24 cholecalciferol (vitamin D3) 125 5,000 unit PO DAILY 07/11/23 01/12/24 mcg (5,000 unit) tablet docusate sodium 100 mg capsule 100 mg PO Q12H 07/11/23 01/12/24 folic acid 1 mg tablet 1 mg PO DAILY 07/11/23 01/12/24 insulin glargine U-300 conc 300 6 unit subcut DAILY 07/11/23 01/12/24 unit/mL (3 mL) subcutaneous pen (Toujeo Max U-300 SoloStar) levothyroxine 50 mcg tablet 50 mcg PO DAILY 07/11/23 01/12/24 nifedipine 60 mg tablet,extended 60 mg PO DAILY 07/11/23 01/12/24 release oxycodone-acetaminophen 7.5 mg-325 1 tablet PO Q4-6H PRN Pain (Scale 07/11/23 01/12/24 mg tablet Score 4-6) polyethylene glycol 3350 17 gram 17 g PO BID PRN Constipation 07/11/23 01/12/24 oral powder packet (Miralax) sevelamer carbonate 800 mg tablet 2,400 mg PO TID 07/11/23 01/12/24 vortioxetine 20 mg tablet 20 mg PO DAILY 07/11/23 01/12/24 (Trintellix) atorvastatin 20 mg tablet 20 mg PO HS 01/12/24 01/12/24 hydralazine 50 mg tablet 100 mg PO Q8H 01/12/24 01/12/24 ketoconazole 2 % topical cream 1 applic topical DAILY 01/12/24 01/12/24 naloxegol 25 mg tablet (Movantik) 25 mg PO DAILY 01/12/24 01/12/24 Allergies Allergy/AdvReac Type Severity Reaction Status Date / Time adhesive tape Allergy Rash Verified 01/12/24 02:47 NSAIDS (Non-Steroidal Allergy Other Verified 01/12/24 02:47 Anti-Inflamma pickles AdvReac Swelling Uncoded 01/11/24 23:24 of Lip/Tongue/Throat Review of Systems Review of Systems: All systems reviewed & are unremarkable except as noted in HPI and below PMFSH Past Medical History Medical History Anxiety and depression Bipolar depression Breast cancer Constipation Coronary artery disease End stage renal disease On hemodialysis with peritoneal dialysis catheter in place Esophageal ulcer Gastric foveolar hyperplasia Gastric mass Benign hyperplastic foveolar mucosa partially obstructing pylorus found on EGD in October 2022. Repeat EGD two weeks later showed gastritis and NERD but no mass. She was treated with PPI. 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 Pozo. The dialysis catheter had been initially placed and May at [facility]. It was subsequently removed in mid October. S/P appendectomy (10/31/22) Dilated appendix, extensive adhesion lysis of adhesions around peritoneal dialysis catheter Status post cataract extraction of both eyes with insertion of intraocular lens Family History Family History Daughter Precancerous changes of the cervix Pancreatitis Daughter Colon cancer Precancerous changes of the cervix Unknown Diabetes mellitus Father Heart attack Sibling Pancreatitis Adry's disease Grandparent Heart attack Cerebrovascular accident Grandparent Cerebrovascular accident Social History Social History Social History: She lives with her of approximately 15 years. She has 4 children. She smoked about half a pack of cigarettes per day for about 14 years but quit smoking approximately 40 years ago. She denies any history of excessive alcohol use or illicit substance use Code status: Full code (however the patient states that she would not want to be on a ventilator long-term, she would not want a tracheostomy or a PEG tube) Healthcare power of district attorney: Smoking packs per day: 2.5 Smoking cigarettes per day: 50.0 Years smoked: 12 Smoking pack-years: 30.00 Smoking status: Never smoker Alcohol intake: never Substance use: never Do You Feel Safe in your Home?: Yes Lack of Transportation: No Lack of Food: Never True Current Housing: I Have Housing Concerned About Future Housing: No Difficulty Paying Gas/Electric Bills: No Difficulty Paying for Meds: No Currently Unemployed: No Education: Decline to Answer Difficulty w/ Childcare or Family Care: No Spiritual care concerns: No Exam Narrative: Constitutional: Generally well appearing, no acute distress Head: Atraumatic, no deformities. Eyes: Pupils equal, round, and reactive to light. Neck: Supple, no tracheal deviation, no JVD. ENMT: Mucous membranes moist Cardiovascular: S1, S2 auscultated. No murmurs, rubs, or gallops. No S3/S4. Normal Distal pulses. 1+ pitting edema to feet and ankles Respiratory: Lung sounds equal. No wheezes, rales, or rhonchi. Gastrointestinal: Abdomen was soft and non-tender. Non-distended. No rebound or guarding. Genitourinary: Deferred Musculoskeletal: Normal muscle tone and bulk. No obvious deformities or tenderness over extremities. Large fistula over right upper extremity. Number bleeding. Smaller fistula over left upper extremity. No bleeding. Central catheter in the anterior right chest Skin: No rashes. Neurological: Strength 5/5 in extremities. Cranial nerves I-XII grossly intact. Distal sensation intact. Mental Status: Awake, alert and oriented x3. Follows commands Course Vital Signs Vital signs: Vital Signs Temperature 36.8 C 03/19/24 22:57 Pulse Rate 75 03/19/24 22:57 Respiratory Rate 28 H 03/19/24 22:57 Pulse Oximetry 98 03/19/24 22:57 Oxygen Delivery Room Air 03/19/24 22:57 Temperature 36.8 C 03/19/24 22:57 Pulse Rate 73 03/20/24 00:46 Respiratory Rate 19 03/20/24 00:46 Blood Pressure 216/76 H 03/20/24 00:46 Pulse Oximetry 95 03/20/24 00:46 Oxygen Delivery Room Air 03/19/24 22:57 MDM - SOB/Dyspnea MDM Narrative Medical decision making narrative: 68-year-old here for shortness of breath. Has had been having trouble catching her breath for over a day now. Dialysis Friday, went today. Exam shows she is hypertensive but reports she is always hypertensive since they have to check her blood pressure on her leg. She says it is always close to 200 or above it. Patient has quite a few different possibilities for cause of her shortness of breath. Could be anemia, ACS, pneumonia, fluid overload. Working up for all of these. Workup complicated showing pneumonia, likely acute congestive heart failure exacerbation, continued hypertension. Troponin is also elevated however it seems to be chronically elevated. She is not having any chest pain. She feels slightly better after breathing treatment. Given a dose of hydralazine here the upper blood pressure. Will admit to hospitalist. Spoke with hospitalist patient will be admitted to the floor. Lab Data 03/19/24 23:54 03/19/24 23:53 Labs: Lab Results 03/19/24 03/19/24 Range/Units 23:53 23:54 WBC 9.0 (4.5-10.0) K/mm3 RBC 2.68 L (4.2-5.4) M/mm3 Hgb 8.0 L (12.0-15.0) g/dL Hct 25.3 L (37.0-47.0) % MCV 94.4 (80-100) fl MCH 29.9 (26-34) pg MCHC 31.6 L (32-36) g/dl RDW 17.5 H (11.5-14.5) % Plt Count 162 (150-375) k/mm3 MPV 9.2 (7.4-10.4) fl Immature Gran % (Auto) 0.6 H (0-0.5) % Neut % (Auto) 83.1 H (45.5-73.1) % Lymph % (Auto) 7.1 L (18.3-44.2) % [place] % (Auto) 6.4 (2.6-8.5) % Eos % (Auto) 2.5 (0-4.4) % Baso % (Auto) 0.3 (0.2-1.2) % Lymph # (Auto) 0.64 L (0.9-3.2) K/mm3 [place] # (Auto) 0.6 (0.1-0.6) K/mm3 Eos # (Auto) 0.2 (0-0.3) K/mm3 Baso # (Auto) 0.0 (0.0-0.1) K/mm3 Abs Immat Gran (auto) 0.05 H (0.00-0.031) K/mm3 Absolute Neuts (auto) 7.5 H (1.3-6.7) K/mm3 Absolute Nucleated RBC 0.000 (0.0-0.012) K/mm3 Nucleated RBC % 0.0 (0.0-0.2) % Sodium 135 L (137-145) mmol/L Potassium 3.3 L (3.4-5.0) mmol/L Chloride 93 L (98-107) mmol/L Carbon Dioxide 33 H (22-30) mmol/L Anion Gap 9 (4-12) mmol/L BUN 17 D (7-17) mg/dL Creatinine 2.90 H (0.7-1.0) mg/dL Estim Creat Clear Calc 17 ml/min Estimated GFR 16 L (59 - ) Glucose 181 H (65-110) mg/dL Calcium 7.0 L (8.4-10.2) mg/dL Total Bilirubin 0.9 (0.2-1.3) mg/dL AST 21 (14-36) U/L ALT 8 (6-35) U/L Alkaline Phosphatase 227 H (38-126) U/L Troponin I 0.045 H* (0.000-0.034) ng/mL NT-Pro-B Natriuret Pep > 00512 H (19.9-100) pg/mL Total Protein 7.0 (6.3-8.2) g/dL Albumin 3.8 (3.5-5.1) g/dL Discharge Plan Discharge Clinical Impression: Anemia in ESRD (end-stage renal disease) CHF (congestive heart failure) Qualifiers: Heart failure type: systolic Heart failure chronicity: acute Qualified Code(s): I50.21 - Acute systolic (congestive) heart failure Pneumonia Qualifiers: Pneumonia type: due to unspecified organism Laterality: unspecified laterality Lung location: unspecified part of lung Qualified Code(s): J18.9 - Pneumonia, unspecified organism Patient Disposition: Still a Patient Condition: Stable Prescriptions: No Action atorvastatin 20 mg tablet 20 mg PO HS hydralazine 50 mg tablet 100 mg PO Q8H ketoconazole 2 % cream 1 applic TOPICAL DAILY Rx Instructions: to groin when pt has rash Movantik 25 mg tablet 25 mg PO DAILY losartan 50 mg tablet 100 mg PO DAILY tizanidine 4 mg tablet 4 mg PO BID PRN (Reason: Muscle Spasm) allopurinol 100 mg tablet 100 mg PO DAILY alprazolam 0.5 mg tablet 0.5 mg PO QID PRN (Reason: Anxiety) Rx Instructions: also for nausea, zofran avoided due to QT prolongation furosemide 80 mg tablet 80 mg PO DAILY ropinirole 0.5 mg tablet See Rx Instructions .ROUTE .COMPLEX Rx Instructions: 2 tablets qam and 3 tablets qhs fluticasone propionate 50 mcg/actuation spray,suspension 1 spray INTRANASAL DAILY PRN (Reason: allergies) lamotrigine 150 mg Tablet 150 mg PO Q12H montelukast 10 mg Tablet 10 mg PO HS levetiracetam 750 mg Tablet 750 mg PO DAILY pantoprazole [Protonix] 40 mg tablet,delayed release (DR/EC) 40 mg PO QAM 28 Days Qty: 28 0RF carvedilol 6.25 mg tablet 6.25 mg PO Q12H levothyroxine 50 mcg tablet 50 mcg PO DAILY docusate sodium 100 mg capsule 100 mg PO Q12H folic acid 1 mg tablet 1 mg PO DAILY albuterol sulfate 90 mcg/actuation HFA aerosol inhaler 2 puff INHALATION Q6H PRN (Reason: Shortness Of Breath Or Wheezing) nifedipine 60 mg tablet extended release 60 mg PO DAILY Trintellix 20 mg tablet 20 mg PO DAILY anastrozole 1 mg tablet 1 mg PO DAILY amantadine HCl 100 mg capsule 100 mg PO WEEKLY Rx Instructions: on friday oxycodone-acetaminophen 7.5-325 mg tablet 1 tablet PO Q4-6H PRN (Reason: Pain (Scale Score 4-6)) sevelamer carbonate 800 mg tablet 2,400 mg PO TID insulin glargine U-300 conc [Toujeo Max U-300 SoloStar] 300 unit/mL (3 mL) insulin pen 6 unit SUBCUT DAILY polyethylene glycol 3350 [Miralax] 17 gram powder in packet 17 g PO BID PRN (Reason: Constipation) cholecalciferol (vitamin D3) 125 mcg (5,000 unit) Tablet 5,000 unit PO DAILY Follow-up/Referrals: Lizzeth,MD Soto [Primary Care Provider] - Time of Disposition: 01:00
[2024-03-19] MEDS: IPRATROPIUM 0.5 MG/ALBUTEROL SULFATE 2.5 MG AMPUL.NEB 3 ML INHALATION (23:26)
[2024-03-19 23:27] VITALS: PULSE 72; RESP 19
[2024-03-19 23:32] VITALS: PULSE 68; RESP 18
[2024-03-20] VITALS (15 sets, daily range): BP systolic 157–216; BP diastolic 53–76; PULSE 66–76; RESP 16–20; TEMP 36.6–36.9; O2SAT 90–99; BMI 26.1
[2024-03-20] LABS: Basophils Percent Auto 0.3 % (0.2-1.2); Eosinophils Absolute Auto 0.2 K/mm3 (0-0.3); Eosinophils Percent Auto 2.5 % (0-4.4); Hematocrit 25.3 % (37.0-47.0); Immature Granulocyte Absolute 0.05 K/mm3 (0.00-0.031); Immature Granulocyte Percent A 0.6 % (0-0.5); Lymphocytes Absolute Auto 0.64 K/mm3 (0.9-3.2); Lymphocytes Percent Auto 7.1 % (18.3-44.2); Mean Corpuscular HGB Conc 31.6 g/dl (32-36); Mean Corpuscular Hemoglobin 29.9 pg (26-34); Mean Corpuscular Volume 94.4 fl (80-100); Mean Platelet Volume 9.2 fl (7.4-10.4); Monocytes Absolute Auto 0.6 K/mm3 (0.1-0.6); Monocytes Percent Auto 6.4 % (2.6-8.5); Neutrophils Absolute Auto 7.5 K/mm3 (1.3-6.7); Neutrophils Percent Auto 83.1 % (45.5-73.1); Platelet Count Result 162 k/mm3 (150-375); Red Blood Count 2.68 M/mm3 (4.2-5.4); Red Cell Distribution Width 17.5 % (11.5-14.5)
[2024-03-20 00:29] LABS: Alanine Aminotransferase 8 U/L (6-35); Albumin Level 3.8 g/dL (3.5-5.1); Alkaline Phosphatase 227 U/L (38-126); Anion Gap 9 mmol/L (4-12); Aspartate Amino Transferase 21 U/L (14-36); Bilirubin,Total 0.9 mg/dL (0.2-1.3); Blood Urea Nitrogen 17 mg/dL (7-17); Carbon Dioxide 33 mmol/L (22-30); Chloride 93 mmol/L (98-107); Estimated CRCL calculation 17 ml/min; Estimated Glomerular Filt Rate 16; Glucose 181 mg/dL (65-110); Potassium 3.3 mmol/L (3.4-5.0); Sodium 135 mmol/L (137-145)
[2024-03-20] MEDS: AZITHROMYCIN 500 MG/NS 250 ML 500 MG/250 ML BAG 250 MG IVPB (00:40)
[2024-03-20 00:45] LABS: NT Pro B Type Natriuretic Pept > 30000 pg/mL (19.9-100); Troponin I 0.045 ng/mL (0.000-0.034)
--- NOTE | 2024-03-20 01:00 | PM.IMHP ---
H&P: HPI History of Present Illness Date/Time: 03/20/24 01:00 Chief Complaint: sob Narrative: This is a 68-year-old female with past medical history significant for end-stage renal disease on hemodialysis, insulin-dependent diabetes mellitus, hypertension generalized anxiety disorder, depression, bipolar disorder, coronary artery disease, gastroparesis. patient presents to the emergency room due to shortness of breath, productive cough of oscar and [place] copious secretions, night sweats, generalized malaise, poor appetite, poor per orally intake. Preliminary workup was significant for chest x-ray with right basilar pneumonia. Patient has been admitted for further evaluation management and treatment. XR chest 2V Ordering provider: Fabian Lipscomb MD History: 68 years Female with . sob . Comparison: January 01, 2024 FINDINGS: MEDIASTINUM: The cardiac silhouette is moderately enlarged. Right Permacath with the tip overlying the superior vena cava. Device is projected over the heart. Congestive merly more on the right side. LUNGS: No effusions or pneumothorax. Bilateral interstitial changes. Opacification the right lung base seen suggestive of pneumonia. OTHER: No free air under the diaphragm. IMPRESSION: Cardiomegaly with cardiac decompensation and pulmonary edema. Right basal pneumonia. Review of Systems Review of Systems: sob, cough productive of [place]scar [place] color copious, night sweats, generalized malaise, poor appetite, poor per oral intake. [facility] Past Medical History Medical History Anxiety and depression Bipolar depression Breast cancer Constipation Coronary artery disease End stage renal disease On hemodialysis with peritoneal dialysis catheter in place Esophageal ulcer Gastric foveolar hyperplasia Gastric mass Benign hyperplastic foveolar mucosa partially obstructing pylorus found on EGD in October 2022. Repeat EGD two weeks later showed gastritis and NERD but no mass. She was treated with PPI. 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 Pozo. The dialysis catheter had been initially placed and May at [facility]. It was subsequently removed in mid October. S/P appendectomy (10/31/22) Dilated appendix, extensive adhesion lysis of adhesions around peritoneal dialysis catheter Status post cataract extraction of both eyes with insertion of intraocular lens Family History Family History Daughter Precancerous changes of the cervix Pancreatitis Daughter Colon cancer Precancerous changes of the cervix Unknown Diabetes mellitus Father Heart attack Sibling Pancreatitis Adry's disease Grandparent Heart attack Cerebrovascular accident Grandparent Cerebrovascular accident Social History Social History Social History: She lives with her of approximately 15 years. She has 4 children. She smoked about half a pack of cigarettes per day for about 14 years but quit smoking approximately 40 years ago. She denies any history of excessive alcohol use or illicit substance use Code status: Full code (however the patient states that she would not want to be on a ventilator long-term, she would not want a tracheostomy or a PEG tube) Healthcare power of assistant city attorney: Smoking packs per day: 2.5 Smoking cigarettes per day: 50.0 Years smoked: 12 Smoking pack-years: 30.00 Smoking status: Never smoker Alcohol intake: never Substance use: never Do You Feel Safe in your Home?: Yes Lack of Transportation: No Lack of Food: Never True Current Housing: I Have Housing Concerned About Future Housing: No Difficulty Paying Gas/Electric Bills: No Difficulty Paying for Meds: No Currently Unemployed: No Education: Decline to Answer Difficulty w/ Childcare or Family Care: No Spiritual care concerns: No Meds Home Medications and Allergies Home Medications Medication Instructions Recorded Confirmed Type allopurinol 100 mg tablet 100 mg PO DAILY 11/01/22 01/12/24 History alprazolam 0.5 mg tablet 0.5 mg PO QID PRN Anxiety 11/01/22 01/12/24 History fluticasone propionate 50 1 spray intranasal DAILY PRN 11/01/22 01/12/24 History mcg/actuation nasal allergies spray,suspension furosemide 80 mg tablet 80 mg PO DAILY 11/01/22 01/12/24 History lamotrigine 150 mg tablet 150 mg PO Q12H 11/01/22 01/12/24 History levetiracetam 750 mg tablet 750 mg PO DAILY 11/01/22 01/12/24 History losartan 50 mg tablet 100 mg PO DAILY 11/01/22 01/12/24 History montelukast 10 mg tablet 10 mg PO HS 11/01/22 01/12/24 History ropinirole 0.5 mg tablet See Rx Instructions .Route .COMPLEX 11/01/22 01/12/24 History tizanidine 4 mg tablet 4 mg PO BID PRN Muscle Spasm 11/01/22 01/12/24 History pantoprazole 40 mg tablet,delayed 40 mg PO QAM 4 weeks #28 tabs 03/22/23 01/12/24 Rx release (Protonix) albuterol sulfate 90 mcg/actuation 2 puff inhalation Q6H PRN 07/11/23 01/12/24 History aerosol inhaler Shortness Of Breath Or Wheezing amantadine HCl 100 mg capsule 100 mg PO WEEKLY 07/11/23 01/12/24 History anastrozole 1 mg tablet 1 mg PO DAILY 07/11/23 01/12/24 History carvedilol 6.25 mg tablet 6.25 mg PO Q12H 07/11/23 01/12/24 History cholecalciferol (vitamin D3) 125 5,000 unit PO DAILY 07/11/23 01/12/24 History mcg (5,000 unit) tablet docusate sodium 100 mg capsule 100 mg PO Q12H 07/11/23 01/12/24 History folic acid 1 mg tablet 1 mg PO DAILY 07/11/23 01/12/24 History insulin glargine U-300 conc 300 6 unit subcut DAILY 07/11/23 01/12/24 History unit/mL (3 mL) subcutaneous pen (Toujeo Max U-300 SoloStar) levothyroxine 50 mcg tablet 50 mcg PO DAILY 07/11/23 01/12/24 History nifedipine 60 mg tablet,extended 60 mg PO DAILY 07/11/23 01/12/24 History release oxycodone-acetaminophen 7.5 mg-325 1 tablet PO Q4-6H PRN Pain (Scale 07/11/23 01/12/24 History mg tablet Score 4-6) polyethylene glycol 3350 17 gram 17 g PO BID PRN Constipation 07/11/23 01/12/24 History oral powder packet (Miralax) sevelamer carbonate 800 mg tablet 2,400 mg PO TID 07/11/23 01/12/24 History vortioxetine 20 mg tablet 20 mg PO DAILY 07/11/23 01/12/24 History (Trintellix) atorvastatin 20 mg tablet 20 mg PO HS 01/12/24 01/12/24 History hydralazine 50 mg tablet 100 mg PO Q8H 01/12/24 01/12/24 History ketoconazole 2 % topical cream 1 applic topical DAILY 01/12/24 01/12/24 History naloxegol 25 mg tablet (Movantik) 25 mg PO DAILY 01/12/24 01/12/24 History Allergies Allergy/AdvReac Type Severity Reaction Status Date / Time adhesive tape Allergy Rash Verified 01/12/24 02:47 NSAIDS (Non-Steroidal Allergy Other Verified 01/12/24 02:47 Anti-Inflamma pickles AdvReac Swelling Uncoded 01/11/24 23:24 of Lip/Tongue/Throat Vital Signs Vital Signs - 24 hr 03/19/24 22:57 03/19/24 23:03 03/19/24 23:27 Temperature 98.2 F Pulse Rate 75 76 72 Respiratory Rate 28 H 19 Blood Pressure Pulse Oximetry 98 Oxygen Delivery Room Air 03/19/24 23:32 03/20/24 00:46 Temperature Pulse Rate 68 73 Respiratory Rate 18 19 Blood Pressure 216/76 H Pulse Oximetry 95 Oxygen Delivery Exam Narrative: Patient is laying in a stretcher Const: General: comfortable, no acute distress, well developed, alert, awake, ill appearing chronically and average body habitus Nutritional Appearance: average body habitus Orientation/consciousness: patient oriented x3 HENMT: Head: normal to inspection, normocephalic and atraumatic Ears: hearing grossly normal bilaterally Face/Nose/Sinus: normal facial exam Face and sinus: normal facial exam Eyes: General: appearance normal, both eyes and all related structures Pupils: Equal, round and reactive pupils present EOM: EOMs intact bilaterally Neck: Neck: full ROM, no lymphadenopathy and no JVD Thyroid: thyroid normal Lymphatic: no lymphadenopathy noted Chest: Chest palpation & inspection: other ( dialysis catheter right subclavian) Resp: Effort & Inspection: normal respiratory effort and able to speak in complete sentences Auscultation: clear to auscultation bilaterally Cardio: Jugular venous distension: no JVD Rate: regular rate Rhythm: regular rhythm Heart sounds: S1 normal heart sound present and S2 normal heart sound present GI: GI Palp: Yes Soft to palpation and Yes No hepatosplenomegaly present : General: Yes deferred Skin: Rashes: no rashes Wounds: no wounds Neuro: General: patient oriented x3 and CN's II-XI intact bilaterally Cranial nerves: Yes CN's II-XII intact bilaterally and Yes Equal, round and reactive pupils present Cognition (Neuro): normal cognition Speech: normal speech Gait exam (Neuro): Normal gait present Motor exam (neuro): 5/5 motor strength present throughout Extrem: General: normal to inspection, full ROM, no joint enlargement and no pedal edema H&P: Results Labs Labs: Short CBC 03/19/24 Range/Units 23:54 WBC 9.0 (4.5-10.0) K/mm3 Hgb 8.0 L (12.0-15.0) g/dL Hct 25.3 L (37.0-47.0) % Plt Count 162 (150-375) k/mm3 BMP 03/19/24 23:53 Sodium 135 L Potassium 3.3 L Chloride 93 L Carbon Dioxide 33 H BUN 17 D Creatinine 2.90 H Glucose 181 H Calcium 7.0 L Cardiac Enzymes 03/19/24 Range/Units 23:53 Troponin I 0.045 H* (0.000-0.034) ng/mL Liver Function 03/19/24 Range/Units 23:53 Total Bilirubin 0.9 (0.2-1.3) mg/dL AST 21 (14-36) U/L ALT 8 (6-35) U/L Alkaline Phosphatase 227 H (38-126) U/L Albumin 3.8 (3.5-5.1) g/dL Assessment and Plan Assessment and plan (1) Pneumonia: Qualifiers: Laterality: unspecified laterality Lung location: unspecified part of lung Pneumonia type: due to unspecified organism Qualified Code(s): J18.9 - Pneumonia, unspecified organism Code(s): J18.9 - Pneumonia, unspecified organism Status: Acute Assessment and Plan: admit to IMU patient started on broad-spectrum antibiotic cultures in progress supportive care continue to monitor (2) End stage renal disease: Code(s): N18.6 - End stage renal disease Status: Chronic Assessment and Plan: on hemodialysis (3) Generalized weakness: Code(s): R53.1 - Weakness Status: Acute Assessment and Plan: likely secondary to chronic disease (4) Paroxysmal A-fib: Code(s): I48.0 - Paroxysmal atrial fibrillation Status: Acute Assessment and Plan: continue to monitor (5) Uncontrolled hypertension: Code(s): I10 - Essential (primary) hypertension Status: Acute Assessment and Plan: restart home meds (6) Anemia in ESRD (end-stage renal disease): Code(s): N18.6 - End stage renal disease; D63.1 - Anemia in chronic kidney disease Status: Acute Assessment and Plan: deferred to Nephrology (7) Neuropathy: Code(s): G62.9 - Polyneuropathy, unspecified Status: Acute Assessment and Plan: unchanged Hospitalist MIPS Advance Care Plan I have confirmed that the patient's Advanced Care Plan is present, code status is documented, or surrogate decision maker is listed in patient medical record.: Yes Medication Reconciliation I have utilized all available resources to obtain, update and review the patients current medications (includes all prescriptions, OTC, herbals, cannabis, and nutritional supplements).: Yes
[2024-03-20] MEDS: hydrALAZINE HCL 20 MG/ML VIAL IV PUSH (01:12)
--- NOTE | 2024-03-20 02:10 | ADMGEN ---
This patient, Yasmin Colbert, was admitted to [facility] Surg Room 321-02 at 02:10. Patient/family oriented to hospital policies and general routines including ID bracelet, bed and alarms, visiting hours, pain management, procedures, bathroom and other care routines, personal items, smoking policy, room service/diet, and visiting hours. Information on how to activate the Rapid Response Team has been discussed. Patient/Family are encouraged to report perceived risks to care and to ask questions if they do not understand what they are told or what they should do.
--- NOTE | 2024-03-20 03:49 | PC.NURSE ---
blood cultures being drawn at this time due to patient being admitted with dialysis access, though it should be noted antibiotics were already administered in ED
[2024-03-20 04:50] LABS: Troponin I 0.129 ng/mL (0.000-0.034)
[2024-03-20 04:55] LABS: MRSA (PCR) NOT DETECTED (NOT DETECTE)
[2024-03-20] MEDS: DOCUSATE SODIUM 100 MG CAPSULE PO ×2 (07:09→18:03)
[2024-03-20] MEDS: hydrALAZINE HCL 20 MG/ML VIAL 10 MG IV PUSH ×3 (07:09→20:42)
[2024-03-20] MEDS: LEVOTHYROXINE SODIUM 50 MCG TABLET PO (07:09)
[2024-03-20 08:03] LABS: Glucose Point of Care 184 mg/dl (65-105)
[2024-03-20 08:32] LABS: Basophils Percent Auto 0.3 % (0.2-1.2); Eosinophils Absolute Auto 0.2 K/mm3 (0-0.3); Eosinophils Percent Auto 2.4 % (0-4.4); Hematocrit 24.2 % (37.0-47.0); Hemoglobin 7.3 g/dL (12.0-15.0); Immature Granulocyte Absolute 0.04 K/mm3 (0.00-0.031); Immature Granulocyte Percent A 0.6 % (0-0.5); Immature Platelet Fraction Pct 2.4 % (0.9-11.2); Lymphocytes Absolute Auto 0.76 K/mm3 (0.9-3.2); Lymphocytes Percent Auto 11.6 % (18.3-44.2); Mean Corpuscular HGB Conc 30.2 g/dl (32-36); Mean Corpuscular Hemoglobin 29.8 pg (26-34); Mean Corpuscular Volume 98.8 fl (80-100); Mean Platelet Volume 10.2 fl (7.4-10.4); Monocytes Absolute Auto 0.5 K/mm3 (0.1-0.6); Monocytes Percent Auto 7.9 % (2.6-8.5); Neutrophils Absolute Auto 5.1 K/mm3 (1.3-6.7); Neutrophils Percent Auto 77.2 % (45.5-73.1); Platelet Count Result 145 k/mm3 (150-375); Red Blood Count 2.45 M/mm3 (4.2-5.4); White Blood Count 6.6 K/mm3 (4.5-10.0)
[2024-03-20] MEDS: FUROSEMIDE 80 MG TABLET PO (08:38)
[2024-03-20] MEDS: SEVELAMER CARBONATE 800 MG TABLET 2400 MG PO ×3 (08:38→17:09)
[2024-03-20] MEDS: FOLIC ACID 1 MG TABLET PO (08:38)
[2024-03-20] MEDS: PANTOPRAZOLE 40 MG TABLET PO (08:38)
[2024-03-20] MEDS: rOPINIRole HCL 1 MG TABLET PO (08:39)
[2024-03-20] MEDS: levETIRAcetam 250 MG TABLET 750 MG PO (08:39)
[2024-03-20] MEDS: NIFEdipine 30 MG TAB.ER.24 60 MG PO (08:39)
[2024-03-20] MEDS: hydrALAZINE HCL 50 MG TABLET 100 MG PO ×3 (08:40→17:10)
[2024-03-20] MEDS: allopurinoL 100 MG TABLET PO (08:40)
[2024-03-20] MEDS: lamoTRIgine 100 MG TABLET PO ×2 (08:40→20:41)
[2024-03-20] MEDS: LOSARTAN POTASSIUM 50 MG TABLET 100 MG PO (08:40)
[2024-03-20] MEDS: lamoTRIgine 50 MG TABLET PO ×2 (08:41→20:41)
[2024-03-20] MEDS: carvediloL 6.25 MG TABLET PO ×2 (08:41→20:41)
[2024-03-20] MEDS: INSULIN GLARGINE (*BKC) 100 UNITS/ML 6 UNITS SUB-Q (08:41)
[2024-03-20] MEDS: ANASTROZOLE (*CHEMO) 1 MG TABLET PO (08:41)
[2024-03-20 08:43] LABS: Alanine Aminotransferase 6 U/L (6-35); Albumin Level 3.4 g/dL (3.5-5.1); Alkaline Phosphatase 202 U/L (38-126); Anion Gap 8 mmol/L (4-12); Aspartate Amino Transferase 19 U/L (14-36); Bilirubin,Total 0.7 mg/dL (0.2-1.3); Blood Urea Nitrogen 21 mg/dL (7-17); Calcium 7.2 mg/dL (8.4-10.2); Carbon Dioxide 32 mmol/L (22-30); Chloride 95 mmol/L (98-107); Estimated CRCL calculation 15 ml/min; Estimated Glomerular Filt Rate 13; Glucose 174 mg/dL (65-110); Potassium 3.2 mmol/L (3.4-5.0); Sodium 135 mmol/L (137-145)
--- NOTE | 2024-03-20 08:59 | PM.IMPN ---
Progress Note: A&P Assessment and Plan (1) Pneumonia: Qualifiers: Laterality: unspecified laterality Lung location: unspecified part of lung Pneumonia type: due to unspecified organism Qualified Code(s): J18.9 - Pneumonia, unspecified organism Code(s): J18.9 - Pneumonia, unspecified organism Status: Acute (2) End stage renal disease: Code(s): N18.6 - End stage renal disease Status: Chronic (3) Generalized weakness: Code(s): R53.1 - Weakness Status: Acute (4) Paroxysmal A-fib: Code(s): I48.0 - Paroxysmal atrial fibrillation Status: Acute (5) Uncontrolled hypertension: Code(s): I10 - Essential (primary) hypertension Status: Acute (6) Anemia in ESRD (end-stage renal disease): Code(s): N18.6 - End stage renal disease; D63.1 - Anemia in chronic kidney disease Status: Acute (7) Neuropathy: Code(s): G62.9 - Polyneuropathy, unspecified Status: Acute Plan This is a 68-year-old female presents to the hospital with shortness of breath which has been worsening over the past few days. ED evaluation vitals were stable except hypertension blood pressure 1 to 116/76 she has been undergoing dialysis as previously scheduled. Is noted blood pressure has always been elevated. Laboratory evaluation was performed which showed normal WBC at 9 hemoglobin of 8 creatinine of 2.9 -x3 0.3. Received a dose of hydralazine for her blood pressure. EKG showed nonspecific ST-T changes. Elevated was mildly elevated at 0.045 subsequent level up trended to 0.129. BNP more than 30,000. Chest x-ray showed right basilar pneumonia. Along with findings of cardiomegaly cardiac decompensation and pulmonary edema. she is admitted for further treatment and evaluation. Right basal pneumonia: Ceftriaxone doxycycline ordered. Sputum culture Elevated troponin up trending 0.045-0.129. EKG with subtle ST depressions will repeat EKG. Does have history of GI bleed in the past. Will consult Cardiology. Added aspirin 81 mg daily Hypertension uncontrolled on admission on hydralazine p.r.n. Chronic anemia: Hemoglobin around 7-8 and stable no signs of active bleeding End-stage renal disease on hemodialysis Friday Nephrology consult Noninvasive reflux disease/gastritis / esophagitis Gastric polyp being evaluated by EGD on 01/13/2024 Anxiety depression/bipolar disorder Breast cancer status post lumpectomy Coronary artery disease Gastroparesis Tardive dyskinesia KACIE History of peptic ulcer Hypertension Neuropathy Paroxysmal atrial fibrillation used to be on anticoagulation but now held due to recurrent anemia and GI bleed DVT prophylaxis SCDs Code status full code Subjective Date/time seen: 03/20/24 08:59 Interval history: Patient reports some retrosternal chest pain. EKG with nonspecific ST-T changes. Mild troponin elevation. Also has shortness of breath. Chest x-ray with findings of pneumonia. Reports some cough. Review of Systems Review of Systems: All systems reviewed & are unremarkable except as noted in HPI and below Exam Narrative: Constitutional: Well-appearing, no acute distress Head: Atraumatic, no deformities. Eyes: Pupils equal, round, and reactive to light. Neck: Supple, no tracheal deviation, no JVD. ENMT: Mucous membranes moist Cardiovascular: S1, S2 auscultated. No murmurs, rubs, or gallops. Respiratory: Lung sounds equal. No wheezes, rales, or rhonchi. Gastrointestinal: Abdomen was soft and non-tender. Non-distended. No rebound or guarding. Musculoskeletal: No edema cyanosis or clubbing Neurological: Strength 5/5 in extremities. Cranial nerves I-XII grossly intact. Distal sensation intact. Mental Status: Awake, alert and oriented x3. Follows commands Objective Data Vital Signs Vital Signs: Vital Signs - 24 hr 03/19/24 22:57 03/19/24 23:03 03/19/24 23:27 Temperature 98.2 F Pulse Rate 75 76 72 Respiratory Rate 28 H 19 Blood Pressure Pulse Oximetry 98 Oxygen Delivery Room Air 03/19/24 23:32 03/20/24 00:46 03/20/24 01:25 Temperature Pulse Rate 68 73 76 Respiratory Rate 18 19 20 Blood Pressure 216/76 H 188/70 H Pulse Oximetry 95 99 Oxygen Delivery 03/20/24 01:55 03/20/24 02:45 03/20/24 06:00 Temperature 98.3 F 97.8 F Pulse Rate 71 70 Respiratory Rate 18 18 Blood Pressure 181/57 H 195/61 H Pulse Oximetry 96 90 Oxygen Delivery Room Air 03/20/24 08:37 03/20/24 08:41 Temperature Pulse Rate 72 72 Respiratory Rate 16 Blood Pressure 157/68 H Pulse Oximetry 94 Oxygen Delivery Intake/Output Intake/Output: Intake & Output 03/17/24 03/18/24 03/19/24 03/20/24 23:59 23:59 23:59 23:59 Intake Total 300 Balance 300 Meds/Results Medications: Active Medications Generic Name Dose Route Start Last Admin Trade Name Freq PRN Reason Stop Dose Admin Albuterol 2 puff 03/20/24 06:22 Albuterol Sulfate (*Sp) Aerosol 1 Puff INHALATION Q6H PRN Shortness Of Breath Or Wheezing Allopurinol 100 mg 03/20/24 08:00 03/20/24 08:40 Allopurinol 100 Mg Tablet PO 100 mg DAILY@0800 [facility] Administration Alprazolam 0.5 mg 03/20/24 06:22 Alprazolam (*Crx) 0.5 Mg Tablet PO QID PRN Anxiety Amantadine HCl 100 mg 03/22/24 09:00 Amantadine Hcl 100 Mg Capsule PO Mo@0900 [facility] Anastrozole 1 mg 03/20/24 09:00 03/20/24 08:41 Anastrozole (*Chemo) 1 Mg Tablet PO 1 mg DAILY [facility] Administration Atorvastatin Calcium 20 mg 03/20/24 21:00 Atorvastatin 20 Mg Tablet PO HS PHYLICIA Carvedilol 6.25 mg 03/20/24 09:00 03/20/24 08:41 Carvedilol 6.25 Mg Tablet PO 6.25 mg Q12HR [facility]YLICIA Administration Docusate Sodium 100 mg 03/20/24 06:25 03/20/24 07:09 Docusate Sodium 100 Mg Capsule PO 100 mg Q12H PHYLICIA Administration Fluticasone Propionate 1 spray 03/20/24 06:22 Fluticasone Propionate 0.05% Na Spr 16 Gm Btl (*Bkc) NASAL DAILY PRN allergies Folic Acid 1 mg 03/20/24 09:00 03/20/24 08:38 Folic Acid 1 Mg Tablet PO 1 mg DAILY [facility]YLICIA Administration Furosemide 80 mg 03/20/24 09:00 03/20/24 08:38 Furosemide 80 Mg Tablet PO 80 mg DAILY [facility] Administration Hydralazine HCl 100 mg 03/20/24 08:00 03/20/24 08:40 Hydralazine Hcl 50 Mg Tablet PO 100 mg TIDWM PHYLICIA Administration Insulin Glargine 6 units 03/20/24 09:00 03/20/24 08:41 Insulin Glargine (*Bkc) 100 Units/Ml SUB-Q 6 units DAILY [facility]YLICIA Administration Lamotrigine 100 mg 03/20/24 09:00 03/20/24 08:40 Lamotrigine 100 Mg Tablet PO 100 mg Q12HR [facility]YL[facility]IA Administration Lamotrigine 50 mg 03/20/24 09:00 03/20/24 08:41 Lamotrigine 50 Mg Tablet PO 50 mg Q12HR [facility] Administration Levetiracetam 750 mg 03/20/24 09:00 03/20/24 08:39 Levetiracetam 250 Mg Tablet PO 750 mg DAILY [facility] Administration Levothyroxine Sodium 50 mcg 03/20/24 06:50 03/20/24 07:09 Levothyroxine Sodium 50 Mcg Tablet PO 50 mcg DAILY@0630 [facility] Administration Losartan Potassium 100 mg 03/20/24 09:00 03/20/24 08:40 Losartan Potassium 50 Mg Tablet PO 100 mg DAILY [facility]YLIC[facility] Administration Miscellaneous Information 0 each 03/20/24 07:00 Naloxegol [Movantik] 25 Mg Tablet- Nonformulary. Please Obtain A Home Supply If Possible. XX 04/19/24 06:59 CLARIFY PHYLICIA Miscellaneous Information 0 each 03/20/24 07:05 Vortioxetine- Nonformulary. Please Obtain A Home Supply If Possible. XX 04/19/24 07:04 CLARIFY PHYLICIA Montelukast Sodium 10 mg 03/20/24 21:00 Montelukast Sodium 10 Mg Tablet PO HS [facility]YLICIA Nifedipine 60 mg 03/20/24 09:00 03/20/24 08:39 Nifedipine 30 Mg Tab.Er.24 PO 60 mg DAILY [facility] Administration Non-Formulary Medication 25 mg 03/20/24 09:00 Naloxegol [Movantik] PO 04/19/24 08:59 DAILY PHYLICIA Non-Formulary Medication 20 mg 03/20/24 09:00 Vortioxetine [Trintellix] PO 04/19/24 08:59 DAILY PHYLICIA Oxycodone HCl 2.5 mg 03/20/24 06:49 Oxycodone Hcl (*Crx) 2.5 Mg Tab Ir PO Q4H PRN Pain (Scale Score 4-6) Oxycodone/Acetaminophen 1 tablet 03/20/24 06:48 Oxycodone/Acetaminophen (*Crx) 5-325 Mg Tablet PO Q4H PRN Pain (Scale Score 4-6) Pantoprazole Sodium 40 mg 03/20/24 09:00 03/20/24 08:38 Pantoprazole 40 Mg Tablet PO 40 mg QAM PHYLICIA Administration Polyethylene Glycol 17 gm 03/20/24 06:22 Polyethylene Glycol 3350 17 Gm Powd.Pack PO BID PRN Constipation Ropinirole HCl 1 mg 03/20/24 09:00 03/20/24 08:39 Ropinirole Hcl 1 Mg Tablet PO 1 mg QAM [facility]YL[facility] Administration Ropinirole HCl 1.5 mg 03/20/24 21:00 Ropinirole Hcl 0.5 Mg Tablet PO HS [facility]YLICIA Sevelamer Carbonate 2,400 mg 03/20/24 08:00 03/20/24 08:38 Sevelamer Carbonate 800 Mg Tablet PO 2,400 mg TIDWM [facility] Administration Tizanidine HCl 4 mg 03/20/24 06:22 Tizanidine Hcl 4 Mg Tablet PO BID PRN Muscle Spasm Radiology Results: ITS Impressions Chest X-Ray 03/19/24 23:24 IMPRESSION: Cardiomegaly with cardiac decompensation and pulmonary edema. Right basal pneumonia. Labs Labs: Laboratory Results - last 24 hr 03/19/24 03/19/24 03/20/24 23:53 23:54 02:54 WBC 9.0 RBC 2.68 L Hgb 8.0 L Hct 25.3 L MCV 94.4 MCH 29.9 MCHC 31.6 L RDW 17.5 H Plt Count 162 MPV 9.2 Immature Gran % (Auto) 0.6 H Neut % (Auto) 83.1 H Lymph % (Auto) 7.1 L [place] % (Auto) 6.4 Eos % (Auto) 2.5 Baso % (Auto) 0.3 Lymph # (Auto) 0.64 L [place] # (Auto) 0.6 Eos # (Auto) 0.2 Baso # (Auto) 0.0 Abs Immat Gran (auto) 0.05 H Absolute Neuts (auto) 7.5 H Absolute Nucleated RBC 0.000 Nucleated RBC % 0.0 Sodium 135 L Potassium 3.3 L Chloride 93 L Carbon Dioxide 33 H Anion Gap 9 BUN 17 D Creatinine 2.90 H Estim Creat Clear Calc 17 Estimated GFR 16 L Glucose 181 H POC Capillary Glucose Calcium 7.0 L Total Bilirubin 0.9 AST 21 ALT 8 Alkaline Phosphatase 227 H Troponin I 0.045 H* NT-Pro-B Natriuret Pep > 57100 H Total Protein 7.0 Albumin 3.8 Nasal MRSA (PCR) Not detected 03/20/24 03/20/24 03/20/24 03:53 07:53 08:03 WBC RBC Hgb Hct MCV MCH MCHC RDW Plt Count MPV Immature Gran % (Auto) Neut % (Auto) Lymph % (Auto) [place] % (Auto) Eos % (Auto) Baso % (Auto) Lymph # (Auto) [place] # (Auto) Eos # (Auto) Baso # (Auto) Abs Immat Gran (auto) Absolute Neuts (auto) Absolute Nucleated RBC Nucleated RBC % Sodium 135 L Potassium 3.2 L Chloride 95 L Carbon Dioxide 32 H Anion Gap 8 BUN 21 H Creatinine 3.40 H Estim Creat Clear Calc 15 Estimated GFR 13 L Glucose 174 H POC Capillary Glucose 184 H Calcium 7.2 L Total Bilirubin 0.7 AST 19 ALT 6 Alkaline Phosphatase 202 H Troponin I 0.129 H* D NT-Pro-B Natriuret Pep Total Protein 6.0 L Albumin 3.4 L Nasal MRSA (PCR)
--- NOTE | 2024-03-20 09:20 | ECG_ITS ---
Test Date: 2024-03-20 09:34:57 Measurements Intervals [place] Rate: 67 P: 50 NE: 222 QRS: 24 QRSD: 104 T: 114 QT: 466 QTc: 493 Interpretive Statements SINUS RHYTHM WITH FIRST DEGREE AV BLOCK ST DEVIATION AND MODERATE T-WAVE ABNORMALITY, CONSIDER ANTEROLATERAL ISCHEMIA [-0.1+ mV T WAVE IN V3-V6] LONG QT INTERVAL ABNORMAL ECG Compared to ECG 03/19/2024 23:05:10 NO SIGNIFICANT CHANGE Electronically Signed On 03-20-2024 09:52:39 CDT by Fabian Kathleen M.D.
[2024-03-20] MEDS: ACETAMINOPHEN 325 MG TABLET 650 MG PO (09:36)
[2024-03-20] MEDS: POTASSIUM CHLORIDE 20 MEQ PACKET (FOR LIQUID) PO (09:39)
[2024-03-20 09:57] LABS: Anisocytosis 1+; Hypochromasia 1+; Ovalocytes 1+; Platelet Estimate Adequate (Adequate); Schistocytes None Seen
[2024-03-20] MEDS: ASPIRIN 81 MG ENTERIC TABLET PO (10:37)
[2024-03-20] MEDS: NITROGLYCERIN SL 0.4 MG TABLET SUBLINGUAL (10:37)
[2024-03-20] MEDS: DOXYCYCLINE 100 MG/NS 100 ML 100 MG/100 ML BAG IVPB ×2 (10:38→21:38)
[2024-03-20 10:55] LABS: Troponin I 0.236 ng/mL (0.000-0.034)
[2024-03-20 11:41] LABS: Glucose Point of Care 165 mg/dl (65-105)
--- NOTE | 2024-03-20 12:11 | P.CONCA_ITS ---
Assessment and Plan Assessment and plan (1) Troponin I above reference range: Code(s): R79.89 - Other specified abnormal findings of blood chemistry Status: Acute Plan This is a 68-year-old lady as described above with chronic anemia and end-stage renal failure who CT came into the hospital with some dyspnea. No evidence cli nically of acute coronary event her troponin levels were sampled and are slightly elevated as 1 would expect given her anemia and no failure. This is NOT indicative of her diagnostic of acute coronary syndrome. Further cardiac evaluation is not indicated in this situation. She [facility] because of her atrial flutter ablation from a couple of years ago. That being the case we will not arrange for redundant follow-up in our office after discharge from [place]. Please call me if you have cardiac questions while she is in the hospital Fabian Kathleen MD [facility] History of Present Illness History of Present Illness Consult date/time: 03/20/24 12:11 Reason For Visit: Pneumonia Narrative: This is a 68-year-old woman I am seeing at the request of the hospitalist because of troponin levels that have been found to be elevated out of normal range. She is not known to me prior to this consultation. She not have a history of coronary artery disease. This is a woman who is significantly ill with a end-stage renal disease and is on hemodialysis and is also significantly anemic. She of course has anemia of chronic disease with renal disease and also has had a recent GI bleed. She came into the hospital yesterday with symptoms of worsening chronic shortness of breath. She has electrocardiogram shows sinus rhythm with inferolateral nonspecific ST segment depression. She has no significant changes on her ECG from previous tracings. Troponin levels were sampled x3 sets are slightly elevated but essentially flat. Not having any chest pain pressure or heaviness when I came in the room to see her for this consultation she was sleeping upon awakening reports sets of generalized fatigue but no other complaints at this time. She has a history of atrial flutter which was treated by [facility] up in [place] with an ablation a couple of years ago. She states she has not had any recurrences of her arrhythmia since then and does follow with 1 of our cardiologists and offers local to here. There is no other cardiac history that she can recall. Review of Systems Constitutional: Constitutional: Reports fatigue and Reports lethargy Eyes: Eyes: Reports no additional eye complaints ENT: Reports system reviewed and no additional complaints, except as documented Cardiovascular: Cardiovascular: Reports no additional cardiovascular complaints Respiratory: Respiratory: Reports dyspnea Gastrointestinal: Gastrointestinal: Reports no additional gastrointestinal complaints Musculoskeletal: Musculoskeletal: Reports no additional musculoskeletal complaints Integumentary/Breasts: Skin/Breast: Reports system reviewed and no additional complaints, except as docu Neurologic: Reports system reviewed and no additional complaints, except as documented Endocrine: Endocrine: Reports no additional endocrine complaints Hematologic/Lymphatic: Hematologic/Lymphatic: Reports as per HPI Allergic/Immunologic: Allergic/Immunologic: Reports no additional allergic/immunologic complaints [facility] Past Medical History Medical History Anxiety and depression Bipolar depression Breast cancer Constipation Coronary artery disease End stage renal disease On hemodialysis with peritoneal dialysis catheter in place Esophageal ulcer Gastric foveolar hyperplasia Gastric mass Benign hyperplastic foveolar mucosa partially obstructing pylorus found on EG D in October 2022. Repeat EGD two weeks later showed gastritis and NERD but no mass. She was treated with PPI. 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 Pozo. The dialysis catheter had been initially placed and May at [facility]. It was subsequently removed in mid October. S/P appendectomy (10/31/22) Dilated appendix, extensive adhesion lysis of adhesions around peritoneal dialysis catheter Status post cataract extraction of both eyes with insertion of intraocular lens Family History Family History Daughter Precancerous changes of the cervix Pancreatitis Daughter Colon cancer Precancerous changes of the cervix Unknown Diabetes mellitus Father Heart attack Sibling Pancreatitis Adry's disease Grandparent Heart attack Cerebrovascular accident Grandparent Cerebrovascular accident Social History Social History (Updated 03/20/24 @ 02:16 by Jada Vu) Social History: She lives with her of approximately 15 years. She has 4 children. She smoked about half a pack of cigarettes per day for about 14 years but quit smoking approximately 40 years ago. She denies any history of excessive alcohol use or illicit substance use Code status: Full code (however the patient states that she would not want to be on a ventilator long-term, she would not want a tracheostomy or a PEG tube) Healthcare power of public welfare worker: Smoking packs per day: 2.5 Smoking cigarettes per day: 50.0 Years smoked: 12 Smoking pack-years: 30.00 Smoking status: Former smoker Alcohol intake: never Substance use: never Do You Feel Safe in your Home?: Yes Lack of Transportation: No Lack of Food: Never True Current Housing: I Have Housing Concerned About Future Housing: No Difficulty Paying Gas/Electric Bills: No Difficulty Paying for Meds: No Currently Unemployed: No Education: Decline to Answer Difficulty w/ Childcare or Family Care: No Occupation/Education: other Spiritual care concerns: No Meds Home Medications and Allergies Home Medications Medication Instructions Recorded Confirmed Type allopurinol 100 mg tablet 100 mg PO DAILY 11/01/22 03/20/24 History alprazolam 0.5 mg tablet 0.5 mg PO QID PRN Anxiety 11/01/22 03/20/24 History fluticasone propionate 50 1 spray intranasal DAILY PRN 11/01/22 03/20/24 History mcg/actuation nasal allergies spray,suspension furosemide 80 mg tablet 80 mg PO DAILY 11/01/22 03/20/24 History lamotrigine 150 mg tablet 150 mg PO Q12H 11/01/22 03/20/24 History levetiracetam 750 mg tablet 750 mg PO DAILY 11/01/22 03/20/24 History losartan 50 mg tablet 100 mg PO DAILY 11/01/22 03/20/24 History montelukast 10 mg tablet 10 mg PO HS 11/01/22 03/20/24 History ropinirole 0.5 mg tablet 1 mg PO QAM 11/01/22 03/20/24 History tizanidine 4 mg tablet 4 mg PO BID PRN Muscle Spasm 11/01/22 03/20/24 History pantoprazole 40 mg tablet,delayed 40 mg PO QAM 4 weeks #28 tabs 03/22/23 03/20/24 Rx release (Protonix) albuterol sulfate 90 mcg/actuation 2 puff inhalation Q6H PRN 07/11/23 03/20/24 History aerosol inhaler Shortness Of Breath Or Wheezing amantadine HCl 100 mg capsule 100 mg PO WEEKLY 07/11/23 03/20/24 History anastrozole 1 mg tablet 1 mg PO DAILY 07/11/23 03/20/24 History carvedilol 6.25 mg tablet 6.25 mg PO Q12H 07/11/23 03/20/24 History cholecalciferol (vitamin D3) 125 5,000 unit PO DAILY 07/11/23 03/20/24 History mcg (5,000 unit) tablet docusate sodium 100 mg capsule 100 mg PO Q12H 07/11/23 03/20/24 History folic acid 1 mg tablet 1 mg PO DAILY 07/11/23 03/20/24 History insulin glargine U-300 conc 300 6 unit subcut DAILY 07/11/23 03/20/24 History unit/mL (3 mL) subcutaneous pen (Toujeo Max U-300 SoloStar) levothyroxine 50 mcg tablet 50 mcg PO DAILY 07/11/23 03/20/24 History nifedipine 60 mg tablet,extended 60 mg PO DAILY 07/11/23 03/20/24 History release oxycodone-acetaminophen 7.5 mg-325 1 tablet PO Q4H PRN Pain (Scale 07/11/23 03/20/24 History mg tablet Score 4-6) polyethylene glycol 3350 17 gram 17 g PO BID PRN Constipation 07/11/23 03/20/24 History oral powder packet (Miralax) sevelamer carbonate 800 mg tablet 2,400 mg PO TIDWM 07/11/23 03/20/24 History vortioxetine 20 mg tablet 20 mg PO DAILY 07/11/23 03/20/24 History (Trintellix) atorvastatin 20 mg tablet 20 mg PO HS 01/12/24 03/20/24 History hydralazine 50 mg tablet 100 mg PO Q8H 01/12/24 03/20/24 History ketoconazole 2 % topical cream 1 applic topical DAILY PRN groin 01/12/24 03/20/24 History rash naloxegol 25 mg tablet (Movantik) 25 mg PO DAILY 01/12/24 03/20/24 History ropinirole 0.5 mg tablet 1.5 mg PO HS 03/20/24 03/20/24 History Allergies Allergy/AdvReac Type Severity Reaction Status Date / Time adhesive tape Allergy Rash Verified 01/12/24 02:47 NSAIDS (Non-Steroidal Allergy Other Verified 01/12/24 02:47 Anti-Inflamma pickles AdvReac Swelling Uncoded 01/11/24 23:24 of Lip/Tongue/Throat Vital Signs Vital Signs - 24 hr 03/19/24 22:57 03/19/24 23:03 03/19/24 23:27 Temperature 36.8 C Pulse Rate 75 76 72 Respiratory Rate 28 H 19 Blood Pressure Pulse Oximetry 98 Oxygen Delivery Room Air 03/19/24 23:32 03/20/24 00:46 03/20/24 01:25 Temperature Pulse Rate 68 73 76 Respiratory Rate 18 19 20 Blood Pressure 216/76 H 188/70 H Pulse Oximetry 95 99 Oxygen Delivery 03/20/24 01:55 03/20/24 02:45 03/20/24 06:00 Temperature 36.8 C 36.6 C Pulse Rate 71 70 Respiratory Rate 18 18 Blood Pressure 181/57 H 195/61 H Pulse Oximetry 96 90 Oxygen Delivery Room Air 03/20/24 08:37 03/20/24 08:41 03/20/24 08:40 Temperature Pulse Rate 72 72 Respiratory Rate 16 Blood Pressure 157/68 H Pulse Oximetry 94 Oxygen Delivery Room Air 03/20/24 08:47 Temperature Pulse Rate Respiratory Rate Blood Pressure Pulse Oximetry 94 Oxygen Delivery Room Air Exam Const: General: comfortable and no acute distress Other: Well-developed well-nourished white female appears her stated age she is sleeping in bed when I entered the room upon awakening is drowsy but responsive and offers no cardiovascular complaints at this time HENMT: Mouth: Yes moist mucous membranes Eyes: Sclera: sclerae normal Neck: Neck: supple and no JVD Resp: Effort & Inspection: normal respiratory effort Auscultation: clear to auscultation bilaterally Cardio: Rate: regular rate Rhythm: regular rhythm Other: Patient has a grade 2/6 crescendo decrescendo murmur that is audible at the base without diastolic or gallop. Murmur peaks in early systole GI: GI Palp: Yes Soft to palpation Auscultation: normal bowel sounds Skin: General skin exam: normal color Neuro: Other: Alert and oriented x3 Extrem: Other: No edema, good perfusion Results Labs and Meds 03/20/24 08:03 03/20/24 08:03 Lab results: Cardiac Enzymes 03/19/24 03/20/24 03/20/24 Range/Units 23:53 03:53 08:03 AST 21 19 (14-36) U/L Troponin I 0.045 H* 0.129 H* D (0.000-0.034) ng/mL 03/20/24 Range/Units 10:17 AST (14-36) U/L Troponin I 0.236 H* D (0.000-0.034) ng/mL CBC 03/19/24 03/20/24 Range/Units 23:54 08:03 WBC 9.0 6.6 (4.5-10.0) K/mm3 RBC 2.68 L 2.45 L (4.2-5.4) M/mm3 Hgb 8.0 L 7.3 L (12.0-15.0) g/dL Hct 25.3 L 24.2 L (37.0-47.0) % Plt Count 162 145 L (150-375) k/mm3 Lymph # (Auto) 0.64 L 0.76 L (0.9-3.2) K/mm3 [place] # (Auto) 0.6 0.5 (0.1-0.6) K/mm3 Eos # (Auto) 0.2 0.2 (0-0.3) K/mm3 Baso # (Auto) 0.0 0.0 (0.0-0.1) K/mm3 Comprehensive Metabolic Panel 03/19/24 03/20/24 Range/Units 23:53 08:03 Sodium 135 L 135 L (137-145) mmol/L Potassium 3.3 L 3.2 L (3.4-5.0) mmol/L Chloride 93 L 95 L (98-107) mmol/L Carbon Dioxide 33 H 32 H (22-30) mmol/L BUN 17 D 21 H (7-17) mg/dL Creatinine 2.90 H 3.40 H (0.7-1.0) mg/dL Glucose 181 H 174 H (65-110) mg/dL Calcium 7.0 L 7.2 L (8.4-10.2) mg/dL AST 21 19 (14-36) U/L ALT 8 6 (6-35) U/L Alkaline Phosphatase 227 H 202 H (38-126) U/L Total Protein 7.0 6.0 L (6.3-8.2) g/dL Albumin 3.8 3.4 L (3.5-5.1) g/dL Intake and Output 03/19/24 03/20/24 03/20/24 23:59 07:59 15:59 Intake Total 300 0 Balance 300 0 Intake: IV 300 Azithromycin 500 mg/Ns 250 ml 250 500 mg In 250 ml @ 250 mls/hr IVPB ONCE ONE Rx#:[id number] cefTRIAXone 1 GM/NS 50 ML 1 gm 50 In 50 ml @ 100 mls/hr IVPB ONCE STA Rx#:[id number] Oral 0 0 Patient Weight 03/20/24 23:59 Weight 77.9 kg
--- NOTE | 2024-03-20 13:39 | P.CONNP_ITS ---
Assessment and Plan Assessment and plan (1) End stage renal disease: Code(s): N18.6 - End stage renal disease Status: Chronic Assessment and Plan: * HD yesterday * plan next HD session on Friday * continue outpatient dialysis schedule of // * follow electrolytes, volume status, and clearance (2) Pneumonia: Qualifiers: Laterality: unspecified laterality Lung location: unspecified part of lung Pneumonia type: due to unspecified organism Qualified Code(s): J18.9 - Pneumonia, unspecified organism Code(s): J18.9 - Pneumonia, unspecified organism Status: Acute Assessment and Plan: * as suggested by admission imaging * follow respiratory status (stable at this time) * follow culture data * on antibiotics * continue supportive therapy (3) Hypertension: Qualifiers: Hypertension type: secondary to other renal disorders Qualified Code(s): I15.1 - Hypertension secondary to other renal disorders; N28.89 - Other specified disorders of kidney and ureter Code(s): I10 - Essential (primary) hypertension Status: Acute Assessment and Plan: * elevated on presentation * better at this time * resume home medications * follow trend of hemodynamics (4) Anemia: Qualifiers: Anemia type: due to chronic kidney disease Chronic kidney disease stage: on chronic dialysis Qualified Code(s): N18.6 - End stage renal disease; D63.1 - Anemia in chronic kidney disease; Z99.2 - Dependence on renal dialysis Code(s): D64.9 - Anemia, unspecified Status: Acute Assessment and Plan: * partly related to ESRD * however, recurrent issues with anemia requiring PRBC transfusion on previous hospitalizations * 4 units transfused during January 2024 hospitalization * prior GI work-up noted * Epogen/Retacrit with HD * check iron studies * follow trend on H/H (5) Generalized weakness: Code(s): R53.1 - Weakness Status: Acute Assessment and Plan: * as noted on admission * possibly partly related to anemia and recent operative procedure (left arm AV access placement) * PT/OT I will continue follow the patient with you while she remains hospitalized and make further recommendations during hospital course. Thank you for allowing me to participate in care with patient. History of Present Illness Reason for Consult Consult date: 03/20/24 Reason for consult: end stage renal disease Chief Complaint Chief complaint: Pneumonia History of Present Illness Narrative: The patient is a 68-year-old female with a past medical history as outlined below who presented to [facility] Emergency room with complaints of mild shortness of breath and chest discomfort. She reports both of the symptoms have been present for the past few days but seemed to acutely worsened on the day of her presentation to the ER. Along with these symptoms she has had increased fatigue and generalized weakness which she attributes to her issues / problems with chronic anemia. Given the persistence of the symptoms despite conservative therapy, she came to the emergency room for further evaluation. Workup and evaluation in the emergency room demonstrated the patient to be afebrile and hemodynamically stable although her blood pressure was somewhat on the higher side. Routine blood test demonstrated labs consistent with her known history of end-stage renal disease with a CBC showing her known chronic anemia. She received medications for her hypertension but her EKG was concerning for with some nonspecific ST changes. Her troponins were mildly elevated and her BNP was greater than 30,000. chest x-ray was somewhat suggestive of a right basilar pneumonia. In association with some pulmonary edema. Given her constellation of symptoms and laboratory / imaging findings, she was subsequently admitted to the hospital for further evaluation and therapy. Since her admission, she has been seen by Cardiology does not feel any further cardiac workup needs to be done at this time given testing that has been done to date. Renal consultation was requested due to her end-stage renal disease. The patient currently does hemodialysis at [facility] under the care of Dr. Charles Bloom. She receives dialysis on a Friday, Friday, and Friday schedule. Based on my experience on taking care of her on previous hospitalizations, she usually does not have any issues or problems with volume overload or critical electrolyte abnormalities although her admission CXR findings are noted but she does not appear in any respiratory distress. Her last dialysis treatment was on Friday. Currently, at the time my visit, she appears to be in no apparent distress. Review of Systems Review of Systems: As per HPI. [facility] Past Medical History Medical History Anxiety and depression Bipolar depression Breast cancer Constipation Coronary artery disease End stage renal disease On hemodialysis with peritoneal dialysis catheter in place Esophageal ulcer Gastric foveolar hyperplasia Gastric mass Benign hyperplastic foveolar mucosa partially obstructing pylorus found on EGD in October 2022. Repeat EGD two weeks later showed gastritis and NERD but no mass. She was treated with PPI. 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 Pozo. The dialysis catheter had been initially placed and May at [facility]. It was subsequently removed in mid October. S/P appendectomy (10/31/22) Dilated appendix, extensive adhesion lysis of adhesions around peritoneal dialysis catheter Status post cataract extraction of both eyes with insertion of intraocular lens Family History Family History Daughter Precancerous changes of the cervix Pancreatitis Daughter Colon cancer Precancerous changes of the cervix Unknown Diabetes mellitus Father Heart attack Sibling Pancreatitis Adry's disease Grandparent Heart attack Cerebrovascular accident Grandparent Cerebrovascular accident Social History Social History (Updated 03/20/24 @ 02:16 by Jada Vu) Social History: She lives with her of approximately 15 years. She has 4 children. She smoked about half a pack of cigarettes per day for about 14 years but quit smoking approximately 40 years ago. She denies any history of excessive alcohol use or illicit substance use Code status: Full code (however the patient states that she would not want to be on a ventilator long-term, she would not want a tracheostomy or a PEG tube) Healthcare power of sql application developer: Smoking packs per day: 2.5 Smoking cigarettes per day: 50.0 Years smoked: 12 Smoking pack-years: 30.00 Smoking status: Former smoker Alcohol intake: never Substance use: never Do You Feel Safe in your Home?: Yes Lack of Transportation: No Lack of Food: Never True Current Housing: I Have Housing Concerned About Future Housing: No Difficulty Paying Gas/Electric Bills: No Difficulty Paying for Meds: No Currently Unemployed: No Education: Decline to Answer Difficulty w/ Childcare or Family Care: No Occupation/Education: other Spiritual care concerns: No Meds Home Medications and Allergies Home Medications Medication Instructions Recorded Confirmed Type allopurinol 100 mg tablet 100 mg PO DAILY 11/01/22 03/20/24 History alprazolam 0.5 mg tablet 0.5 mg PO QID PRN Anxiety 11/01/22 03/20/24 History fluticasone propionate 50 1 spray intranasal DAILY PRN 11/01/22 03/20/24 History mcg/actuation nasal allergies spray,suspension furosemide 80 mg tablet 80 mg PO DAILY 11/01/22 03/20/24 History lamotrigine 150 mg tablet 150 mg PO Q12H 11/01/22 03/20/24 History levetiracetam 750 mg tablet 750 mg PO DAILY 11/01/22 03/20/24 History losartan 50 mg tablet 100 mg PO DAILY 11/01/22 03/20/24 History montelukast 10 mg tablet 10 mg PO HS 11/01/22 03/20/24 History ropinirole 0.5 mg tablet 1 mg PO QAM 11/01/22 03/20/24 History tizanidine 4 mg tablet 4 mg PO BID PRN Muscle Spasm 11/01/22 03/20/24 History albuterol sulfate 90 mcg/actuation 2 puff inhalation Q6H PRN 07/11/23 03/20/24 History aerosol inhaler Shortness Of Breath Or Wheezing amantadine HCl 100 mg capsule 100 mg PO WEEKLY 07/11/23 03/20/24 History anastrozole 1 mg tablet 1 mg PO DAILY 07/11/23 03/20/24 History carvedilol 6.25 mg tablet 6.25 mg PO Q12H 07/11/23 03/20/24 History cholecalciferol (vitamin D3) 125 5,000 unit PO DAILY 07/11/23 03/20/24 History mcg (5,000 unit) tablet docusate sodium 100 mg capsule 100 mg PO Q12H 07/11/23 03/20/24 History folic acid 1 mg tablet 1 mg PO DAILY 07/11/23 03/20/24 History insulin glargine U-300 conc 300 6 unit subcut DAILY 07/11/23 03/20/24 History unit/mL (3 mL) subcutaneous pen (Roger Max U-300 SoloStar) levothyroxine 50 mcg tablet 50 mcg PO DAILY 07/11/23 03/21/24 History oxycodone-acetaminophen 7.5 mg-325 1 tablet PO Q4H PRN Pain (Scale 07/11/23 03/20/24 History mg tablet Score 4-6) polyethylene glycol 3350 17 gram 17 g PO BID PRN Constipation 07/11/23 03/20/24 History oral powder packet (Miralax) sevelamer carbonate 800 mg tablet 2,400 mg PO TIDWM 07/11/23 03/20/24 History vortioxetine 20 mg tablet 20 mg PO DAILY 07/11/23 03/20/24 History (Trintellix) atorvastatin 20 mg tablet 20 mg PO HS 01/12/24 03/20/24 History ketoconazole 2 % topical cream 1 applic topical DAILY PRN groin 01/12/24 03/20/24 History rash naloxegol 25 mg tablet (Movantik) 25 mg PO DAILY 01/12/24 03/20/24 History nifedipine 90 mg tablet,extended 90 mg PO HS 03/20/24 03/20/24 History release ropinirole 0.5 mg tablet 1.5 mg PO HS 03/20/24 03/20/24 History pantoprazole 40 mg tablet,delayed 40 mg PO BID 03/21/24 03/21/24 History release Allergies Allergy/AdvReac Type Severity Reaction Status Date / Time adhesive tape Allergy Rash Verified 01/12/24 02:47 NSAIDS (Non-Steroidal Allergy Other Verified 01/12/24 02:47 Anti-Inflamma pickles AdvReac Swelling Uncoded 01/11/24 23:24 of Lip/Tongue/Throat Vital Signs Vital Signs Temp Pulse Resp BP Pulse Ox O2 Del Method 03/20/24 12:19 68 16 168/73 H 98 03/20/24 08:47 94 Room Air 03/20/24 08:40 Room Air 03/20/24 08:41 72 03/20/24 08:37 72 16 157/68 H 94 03/20/24 06:00 97.8 F 70 18 195/61 H 90 03/20/24 02:45 Room Air 03/20/24 01:55 98.3 F 71 18 181/57 H 96 03/20/24 01:25 76 20 188/70 H 99 03/20/24 00:46 73 19 216/76 H 95 03/19/24 23:32 68 18 03/19/24 23:27 72 19 03/19/24 23:03 76 03/19/24 22:57 98.2 F 75 28 H 98 Room Air Exam Narrative: GENERAL APPEARANCE: WD/WN female in no acute distress HEENT: normocephalic, atraumatic, pallor to conjunctiva and sclera, nares patient NECK: no lymphadenopathy, thyromegaly, or JVD MOUTH: normal lips, teeth, and gums CARDIOVASCULAR: RRR, normal S1 and S2, no rub RESPIRATORY: clear to auscultation bilaterally ABDOMEN: soft nuy with generalized tenderness, nondistended, positive bowel sounds present EXTREMITIES: no evidence of cyanosis, clubbing, no edema NEUROLOGICAL: awake and alert; generalized weakness noted Results Lab Results 03/26/24 09:20 03/26/24 09:20 Lab results: Most recent lab results Calcium 7.2 mg/dL (8.4-10.2) L 03/20/24 08:03
[2024-03-20 16:40] LABS: Glucose Point of Care 124 mg/dl (65-105)
[2024-03-20 20:02] LABS: Glucose Point of Care 157 mg/dl (65-105)
[2024-03-20] MEDS: ATORVASTATIN 20 MG TABLET PO (20:41)
[2024-03-20] MEDS: rOPINIRole HCL 0.5 MG TABLET 1.5 MG PO (20:41)
[2024-03-20] MEDS: MONTELUKAST SODIUM 10 MG TABLET PO (20:42)
[2024-03-21] VITALS (11 sets, daily range): BP systolic 151–181; BP diastolic 58–70; PULSE 60–89; RESP 16–18; TEMP 36.8–37.1; O2SAT 93–99
[2024-03-21] MEDS: ALPRAZolam (*CRX) 0.5 MG TABLET PO (05:27)
[2024-03-21] MEDS: LEVOTHYROXINE SODIUM 50 MCG TABLET PO (05:27)
[2024-03-21] MEDS: DOCUSATE SODIUM 100 MG CAPSULE PO (05:27)
[2024-03-21 06:26] LABS: Basophils Percent Auto 0.3 % (0.2-1.2); Eosinophils Absolute Auto 0.4 K/mm3 (0-0.3); Eosinophils Percent Auto 5.1 % (0-4.4); Hematocrit 26.3 % (37.0-47.0); Hemoglobin 7.8 g/dL (12.0-15.0); Immature Granulocyte Absolute 0.05 K/mm3 (0.00-0.031); Immature Granulocyte Percent A 0.7 % (0-0.5); Lymphocytes Absolute Auto 0.79 K/mm3 (0.9-3.2); Lymphocytes Percent Auto 11.3 % (18.3-44.2); Mean Corpuscular HGB Conc 29.7 g/dl (32-36); Mean Corpuscular Hemoglobin 28.6 pg (26-34); Mean Corpuscular Volume 96.3 fl (80-100); Mean Platelet Volume 9.4 fl (7.4-10.4); Monocytes Absolute Auto 0.6 K/mm3 (0.1-0.6); Monocytes Percent Auto 8.6 % (2.6-8.5); Neutrophils Absolute Auto 5.2 K/mm3 (1.3-6.7); Platelet Count Result 166 k/mm3 (150-375); Red Blood Count 2.73 M/mm3 (4.2-5.4); Red Cell Distribution Width 17.7 % (11.5-14.5)
[2024-03-21 06:44] LABS: Iron 40 ug/dL (37-170)
[2024-03-21 06:48] LABS: Alanine Aminotransferase 6 U/L (6-35); Albumin Level 3.5 g/dL (3.5-5.1); Alkaline Phosphatase 197 U/L (38-126); Anion Gap 9 mmol/L (4-12); Aspartate Amino Transferase 16 U/L (14-36); Bilirubin,Total 0.5 mg/dL (0.2-1.3); Blood Urea Nitrogen 30 mg/dL (7-17); Calcium 7.8 mg/dL (8.4-10.2); Carbon Dioxide 31 mmol/L (22-30); Chloride 96 mmol/L (98-107); Estimated CRCL calculation 11 ml/min; Estimated Glomerular Filt Rate 9; Glucose 173 mg/dL (65-110); Potassium 3.4 mmol/L (3.4-5.0); Sodium 136 mmol/L (137-145)
[2024-03-21 06:53] LABS: Percent Iron Saturation 22 % (20-50)
[2024-03-21 07:08] LABS: Anisocytosis 1+; Hypochromasia 2+; Microcytosis 1+ (NORMAL); Platelet Estimate Adequate (Adequate); Schistocytes Rare
[2024-03-21 07:34] LABS: Hepatitis B Surface Antigen Negative (Negative)
[2024-03-21 07:48] LABS: Folic Acid 8.7 ng/mL (2.76->20)
[2024-03-21 07:52] LABS: Glucose Point of Care 166 mg/dl (65-105)
[2024-03-21 07:53] LABS: Hepatitis B Surface Anti Res Positive
[2024-03-21] MEDS: lamoTRIgine 100 MG TABLET PO ×2 (10:09→22:03)
[2024-03-21] MEDS: rOPINIRole HCL 1 MG TABLET PO (10:09)
[2024-03-21] MEDS: hydrALAZINE HCL 50 MG TABLET 100 MG PO ×3 (10:09→16:56)
[2024-03-21] MEDS: lamoTRIgine 50 MG TABLET PO ×2 (10:09→22:03)
[2024-03-21] MEDS: SEVELAMER CARBONATE 800 MG TABLET 2400 MG PO ×3 (10:09→16:56)
[2024-03-21] MEDS: PANTOPRAZOLE 40 MG TABLET PO (10:10)
[2024-03-21] MEDS: allopurinoL 100 MG TABLET PO (10:10)
[2024-03-21] MEDS: FUROSEMIDE 80 MG TABLET PO (10:10)
[2024-03-21] MEDS: NIFEdipine 30 MG TAB.ER.24 90 MG PO (10:10)
[2024-03-21] MEDS: ANASTROZOLE (*CHEMO) 1 MG TABLET PO (10:10)
[2024-03-21] MEDS: FOLIC ACID 1 MG TABLET PO (10:10)
[2024-03-21] MEDS: levETIRAcetam 250 MG TABLET 750 MG PO (10:11)
[2024-03-21] MEDS: LOSARTAN POTASSIUM 50 MG TABLET 100 MG PO (10:12)
[2024-03-21] MEDS: carvediloL 6.25 MG TABLET PO ×2 (10:12→22:04)
[2024-03-21] MEDS: ASPIRIN 81 MG ENTERIC TABLET PO (10:12)
[2024-03-21] MEDS: DOXYCYCLINE 100 MG/NS 100 ML 100 MG/100 ML BAG IVPB ×2 (10:12→22:03)
[2024-03-21] MEDS: INSULIN GLARGINE (*BKC) 100 UNITS/ML 6 UNITS SUB-Q (10:17)
[2024-03-21 11:31] LABS: Glucose Point of Care 171 mg/dl (65-105)
--- NOTE | 2024-03-21 11:36 | P.PNIM_ITS ---
Progress Note: A&P Assessment and Plan (1) Pneumonia: Qualifiers: Laterality: unspecified laterality Lung location: unspecified part of lung Pneumonia type: due to unspecified organism Qualified Code(s): J18.9 - Pneumonia, unspecified organism Code(s): J18.9 - Pneumonia, unspecified organism Status: Acute (2) End stage renal disease: Code(s): N18.6 - End stage renal disease Status: Chronic (3) Generalized weakness: Code(s): R53.1 - Weakness Status: Acute (4) Paroxysmal A-fib: Code(s): I48.0 - Paroxysmal atrial fibrillation Status: Acute (5) Uncontrolled hypertension: Code(s): I10 - Essential (primary) hypertension Status: Acute (6) Anemia in ESRD (end-stage renal disease): Code(s): N18.6 - End stage renal disease; D63.1 - Anemia in chronic kidney disease Status: Acute (7) Neuropathy: Code(s): G62.9 - Polyneuropathy, unspecified Status: Acute Plan This is a 68-year-old female presents to the hospital with shortness of breath which has been worsening over the past few days. ED evaluation vitals were stable except hypertension blood pressure 1 to 116/76 she has been undergoing dialysis as previously scheduled. Is noted blood pressure has always been elevated. Laboratory evaluation was performed which showed normal WBC at 9 hemoglobin of 8 creatinine of 2.9 -x3 0.3. Received a dose of hydralazine for her blood pressure. EKG showed nonspecific ST-T changes. Elevated was mildly elevated at 0.045 subsequent level up trended to 0.129. BNP more than 30,000. Chest x-ray showed right basilar pneumonia. Along with findings of cardiomegaly cardiac decompensation and pulmonary edema. she is admitted for further treatment and evaluation. Right basal pneumonia: Ceftriaxone doxycycline ordered. Sputum culture Elevated troponin up trending 0.045-0.129. EKG with subtle ST depressions will repeat EKG. Does have history of GI bleed in the past. Consulted Cardiology. Added aspirin 81 mg daily Hypertension uncontrolled on admission on hydralazine p.r.n. Procardia to 90 mg also on hydralazine 100 mg t.i.d. along with losartan 100 mg daily Coreg 6.25 twice daily Chronic anemia: Hemoglobin around 7-8 and stable no signs of active bleeding End-stage renal disease on hemodialysis Friday Nephrology consult Noninvasive reflux disease/gastritis / esophagitis Gastric polyp previously evaluated by EGD on 01/13/2024 Anxiety depression/bipolar disorder Breast cancer status post lumpectomy Coronary artery disease Gastroparesis Tardive dyskinesia KACIE History of peptic ulcer Neuropathy Paroxysmal atrial fibrillation used to be on anticoagulation but now held due to recurrent anemia and GI bleed DVT prophylaxis SCDs Code status full code Subjective Date/time seen: 03/21/24 11:36 Interval history: No overnight events. Blood pressure still elevated. Getting p.r.n.. Coughing out phlegm. Review of Systems Review of Systems: All systems reviewed & are unremarkable except as noted in HPI and below Exam Narrative: Constitutional: Well-appearing, no acute distress Head: Atraumatic, no deformities. Eyes: Pupils equal, round, and reactive to light. Neck: Supple, no tracheal deviation, no JVD. ENMT: Mucous membranes moist Cardiovascular: S1, S2 auscultated. No murmurs, rubs, or gallops. Respiratory: Lung sounds equal. No wheezes, rales, or rhonchi. Gastrointestinal: Abdomen was soft and non-tender. Non-distended. No rebound or guarding. Musculoskeletal: No edema cyanosis or clubbing Neurological: Strength 5/5 in extremities. Cranial nerves I-XII grossly intact. Distal sensation intact. Mental Status: Awake, alert and oriented x3. Follows commands Objective Data Vital Signs Vital Signs: Vital Signs - 24 hr 03/20/24 12:19 03/20/24 12:00 03/20/24 15:11 Temperature 97.8 F Pulse Rate 68 67 66 Respiratory Rate 16 16 Blood Pressure 168/73 H 180/61 H Pulse Oximetry 98 95 Oxygen Delivery 03/20/24 16:00 03/20/24 17:03 03/20/24 20:06 Temperature 98.5 F Pulse Rate 69 72 Respiratory Rate 20 Blood Pressure 167/53 H 208/71 H Pulse Oximetry 94 Oxygen Delivery 03/20/24 20:41 03/20/24 20:00 03/20/24 20:00 Temperature Pulse Rate 72 75 Respiratory Rate Blood Pressure Pulse Oximetry Oxygen Delivery Room Air 03/21/24 00:00 03/21/24 04:00 03/21/24 05:39 Temperature 98.2 F Pulse Rate 74 64 63 Respiratory Rate 16 Blood Pressure 172/61 H Pulse Oximetry 99 Oxygen Delivery 03/21/24 00:00 03/21/24 10:12 03/21/24 08:02 Temperature 98.5 F Pulse Rate 74 89 66 Respiratory Rate Blood Pressure 181/70 H Pulse Oximetry Oxygen Delivery Intake/Output Intake/Output: Intake & Output 03/18/24 03/19/24 03/20/24 03/21/24 23:59 23:59 23:59 23:59 Intake Total 770 490 Output Total 0 Balance 770 490 Meds/Results Medications: Active Medications Generic Name Dose Route Start Last Admin Trade Name Freq PRN Reason Stop Dose Admin Acetaminophen 650 mg 03/20/24 09:25 03/20/24 09:36 Acetaminophen 325 Mg Tablet PO 650 mg Q6H PRN Administration Mild Pain (1-3) or Fever Albuterol 2 puff 03/20/24 06:22 Albuterol Sulfate (*Sp) Aerosol 1 Puff INHALATION Q6H PRN Shortness Of Breath Or Wheezing Allopurinol 100 mg 03/20/24 08:00 03/21/24 10:10 Allopurinol 100 Mg Tablet PO 100 mg DAILY@0800 PHYLICIA Administration Alprazolam 0.5 mg 03/20/24 06:22 03/21/24 05:27 Alprazolam (*Crx) 0.5 Mg Tablet PO 0.5 mg QID PRN Administration Anxiety Amantadine HCl 100 mg 03/22/24 09:00 Amantadine Hcl 100 Mg Capsule PO Mo@0900 [facility] Anastrozole 1 mg 03/20/24 09:00 03/21/24 10:10 Anastrozole (*Chemo) 1 Mg Tablet PO 1 mg DAILY PHYLICIA Administration Aspirin 81 mg 03/20/24 11:00 03/21/24 10:12 Aspirin 81 Mg Enteric Tablet PO 81 mg QAM PHYLICIA Administration Atorvastatin Calcium 20 mg 03/20/24 21:00 03/20/24 20:41 Atorvastatin 20 Mg Tablet PO 20 mg HS PHYLICIA Administration Carvedilol 6.25 mg 03/20/24 09:00 03/21/24 10:12 Carvedilol 6.25 Mg Tablet PO 6.25 mg Q12HR PHYLICIA Administration Docusate Sodium 100 mg 03/20/24 06:25 03/21/24 05:27 Docusate Sodium 100 Mg Capsule PO 100 mg Q12H PHYLICIA Administration Fluticasone Propionate 1 spray 03/20/24 06:22 Fluticasone Propionate 0.05% Na Spr 16 Gm Btl (*Bkc) NASAL DAILY PRN allergies Folic Acid 1 mg 03/20/24 09:00 03/21/24 10:10 Folic Acid 1 Mg Tablet PO 1 mg DAILY PHYLICIA Administration Furosemide 80 mg 03/20/24 09:00 03/21/24 10:10 Furosemide 80 Mg Tablet PO 80 mg DAILY PHYLICIA Administration Hydralazine HCl 100 mg 03/20/24 08:00 03/21/24 10:09 Hydralazine Hcl 50 Mg Tablet PO 100 mg TIDWM PHYLICIA Administration Hydralazine HCl 10 mg 03/20/24 15:22 03/20/24 20:42 Hydralazine Hcl 20 Mg/Ml Vial IV PUSH 10 mg Q6HR PRN Administration Blood Pressure - High Ceftriaxone Sodium 1 gm in 50 mls @ 100 mls/hr 03/20/24 21:00 03/20/24 21:15 Rocephin 1 Gm/Ns 50 Ml IVPB Infused Q24H PHYLICIA Infusion Doxycycline Hyclate 100 mg in 100 mls @ 100 mls/hr 03/20/24 09:45 03/21/24 10:12 Vibramycin 100 Mg/Ns 100 Ml IVPB 100 mls/hr Q12HR PHYLICIA Administration Insulin Glargine 6 units 03/20/24 09:00 03/21/24 10:17 Insulin Glargine (*Bkc) 100 Units/Ml SUB-Q 6 units DAILY PHYLICIA Administration Lamotrigine 100 mg 03/20/24 09:00 03/21/24 10:09 Lamotrigine 100 Mg Tablet PO 100 mg Q12HR PHYLICIA Administration Lamotrigine 50 mg 03/20/24 09:00 03/21/24 10:09 Lamotrigine 50 Mg Tablet PO 50 mg Q12HR PHYLICIA Administration Levetiracetam 750 mg 03/20/24 09:00 03/21/24 10:11 Levetiracetam 250 Mg Tablet PO 750 mg DAILY PHYLICIA Administration Levothyroxine Sodium 50 mcg 03/20/24 06:50 03/21/24 05:27 Levothyroxine Sodium 50 Mcg Tablet PO 50 mcg DAILY@0630 PHYLICIA Administration Losartan Potassium 100 mg 03/20/24 09:00 03/21/24 10:12 Losartan Potassium 50 Mg Tablet PO 100 mg DAILY PHYLICIA Administration Miscellaneous Information 0 each 03/20/24 07:00 03/21/24 00:18 Naloxegol [Movantik] 25 Mg Tablet- Nonformulary. Please Obtain A Home Supply If Possible. XX 04/19/24 06:59 Not Given CLARIFY PHYLICIA Miscellaneous Information 0 each 03/20/24 07:05 03/21/24 00:18 Vortioxetine- Nonformulary. Please Obtain A Home Supply If Possible. XX 04/19/24 07:04 Not Given CLARIFY PHYLICIA Montelukast Sodium 10 mg 03/20/24 21:00 03/20/24 20:42 Montelukast Sodium 10 Mg Tablet PO 10 mg HS PHYLICIA Administration Nifedipine 90 mg 03/21/24 09:00 03/21/24 10:10 Nifedipine 30 Mg Tab.Er.24 PO 90 mg DAILY PHYLICIA Administration Nitroglycerin 0.4 mg 03/20/24 10:10 03/20/24 10:37 Nitroglycerin Sl 0.4 Mg Tablet SUBLINGUAL 0.4 mg Q5MIN PRN Administration Chest Pain Non-Formulary Medication 25 mg 03/20/24 09:00 Naloxegol [Movantik] PO 04/19/24 08:59 DAILY PHYLICIA Non-Formulary Medication 20 mg 03/20/24 09:00 Vortioxetine [Trintellix] PO 04/19/24 08:59 DAILY PHYLICIA Oxycodone HCl 2.5 mg 03/20/24 06:49 Oxycodone Hcl (*Crx) 2.5 Mg Tab Ir PO Q4H PRN Pain (Scale Score 4-6) Oxycodone/Acetaminophen 1 tablet 03/20/24 06:48 Oxycodone/Acetaminophen (*Crx) 5-325 Mg Tablet PO Q4H PRN Pain (Scale Score 4-6) Pantoprazole Sodium 40 mg 03/20/24 09:00 03/21/24 10:10 Pantoprazole 40 Mg Tablet PO 40 mg QAM PHYLICIA Administration Polyethylene Glycol 17 gm 03/20/24 06:22 Polyethylene Glycol 3350 17 Gm Powd.Pack PO BID PRN Constipation Ropinirole HCl 1 mg 03/20/24 09:00 03/21/24 10:09 Ropinirole Hcl 1 Mg Tablet PO 1 mg QAM PHYLICIA Administration Ropinirole HCl 1.5 mg 03/20/24 21:00 03/20/24 20:41 Ropinirole Hcl 0.5 Mg Tablet PO 1.5 mg HS PHYLICIA Administration Sevelamer Carbonate 2,400 mg 03/20/24 08:00 03/21/24 10:09 Sevelamer Carbonate 800 Mg Tablet PO 2,400 mg TIDWM PHYLICIA Administration Tizanidine HCl 4 mg 03/20/24 06:22 Tizanidine Hcl 4 Mg Tablet PO BID PRN Muscle Spasm Radiology Results: ITS Impressions Chest X-Ray 03/19/24 23:24 IMPRESSION: Cardiomegaly with cardiac decompensation and pulmonary edema. Right basal pneumonia. Labs Labs: Laboratory Results - last 24 hr 03/20/24 03/20/24 03/20/24 11:36 16:35 19:30 WBC RBC Hgb Hct MCV MCH MCHC RDW Plt Count MPV Immature Gran % (Auto) Neut % (Auto) Lymph % (Auto) Jack % (Auto) Eos % (Auto) Baso % (Auto) Lymph # (Auto) Jack # (Auto) Eos # (Auto) Baso # (Auto) Abs Immat Gran (auto) Absolute Neuts (auto) Absolute Nucleated RBC Nucleated RBC % Platelet Estimate Hypochromasia Anisocytosis Microcytosis Schistocytes Sodium Potassium Chloride Carbon Dioxide Anion Gap BUN Creatinine Estim Creat Clear Calc Estimated GFR Glucose POC Capillary Glucose 165 H 124 H 157 H Calcium Magnesium Iron TIBC % Saturation Ferritin Total Bilirubin AST ALT Alkaline Phosphatase Total Protein Albumin Vitamin B12 Folate Hep Bs Antigen Hep Bs Antibody 03/21/24 03/21/24 03/21/24 06:14 07:43 11:28 WBC 7.0 RBC 2.73 L Hgb 7.8 L Hct 26.3 L MCV 96.3 MCH 28.6 MCHC 29.7 L RDW 17.7 H Plt Count 166 MPV 9.4 Immature Gran % (Auto) 0.7 H Neut % (Auto) 74.0 H Lymph % (Auto) 11.3 L Jack % (Auto) 8.6 H Eos % (Auto) 5.1 H Baso % (Auto) 0.3 Lymph # (Auto) 0.79 L Jack # (Auto) 0.6 Eos # (Auto) 0.4 H Baso # (Auto) 0.0 Abs Immat Gran (auto) 0.05 H Absolute Neuts (auto) 5.2 Absolute Nucleated RBC 0.000 Nucleated RBC % 0.0 Platelet Estimate Adequate Hypochromasia 2+ Anisocytosis 1+ Microcytosis 1+ Schistocytes Rare Sodium 136 L Potassium 3.4 Chloride 96 L Carbon Dioxide 31 H Anion Gap 9 BUN 30 H Creatinine 4.70 H Estim Creat Clear Calc 11 Estimated GFR 9 L Glucose 173 H POC Capillary Glucose 166 H 171 H Calcium 7.8 L Magnesium 2.0 Iron 40 TIBC 179 L % Saturation 22 Ferritin 761.00 H Total Bilirubin 0.5 AST 16 ALT 6 Alkaline Phosphatase 197 H Total Protein 6.0 L Albumin 3.5 Vitamin B12 534.0 Folate 8.7 Hep Bs Antigen Negative Hep Bs Antibody Positive
--- NOTE | 2024-03-21 12:40 | P.PNNP_ITS ---
Progress Note: A&P Assessment and Plan (1) End stage renal disease: Code(s): N18.6 - End stage renal disease Status: Chronic Assessment and Plan: * plan next HD session on Friday * continue outpatient dialysis schedule of // * follow electrolytes, volume status, and clearance (2) Pneumonia: Qualifiers: Laterality: unspecified laterality Lung location: unspecified part of lung Pneumonia type: due to unspecified organism Qualified Code(s): J18.9 - Pneumonia, unspecified organism Code(s): J18.9 - Pneumonia, unspecified organism Status: Acute Assessment and Plan: * as suggested by admission imaging * follow respiratory status (stable at this time) * follow culture data * on antibiotics * continue supportive therapy (3) Hypertension: Qualifiers: Hypertension type: secondary to other renal disorders Qualified Code(s): I15.1 - Hypertension secondary to other renal disorders; N28.89 - Other specified disorders of kidney and ureter Code(s): I10 - Essential (primary) hypertension Status: Acute Assessment and Plan: * elevated on presentation * seems to fluctuate to extremes * will try to be more aggressive with ultrafiltration with HD to see if that helps * resumed home medications * follow trend of hemodynamics (4) Anemia: Qualifiers: Anemia type: due to chronic kidney disease Chronic kidney disease stage: on chronic dialysis Qualified Code(s): N18.6 - End stage renal disease; D63.1 - Anemia in chronic kidney disease; Z99.2 - Dependence on renal dialysis Code(s): D64.9 - Anemia, unspecified Status: Acute Assessment and Plan: * partly related to ESRD * however, recurrent issues with anemia requiring PRBC transfusion on previous hospitalization * 4 units transfused during January 2024 hospitalization * prior GI work-up noted * Epogen/Retacrit with HD * iron stores with borderline iron deficiency; b12 and folate okay * hold off on IV venofer until pneumonia treated * follow trend on H/H (5) Paroxysmal A-fib: Code(s): I48.0 - Paroxysmal atrial fibrillation Status: Acute Assessment and Plan: * stable at this time * no anticoagulation due to recurret/chronic anemia (6) Generalized weakness: Code(s): R53.1 - Weakness Status: Acute Assessment and Plan: * as noted on admission * possibly partly related to anemia and recent operative procedure (left arm AV access placement) * PT/OT Will continue to follow. Subjective Date/time seen: 03/21/24 11:32 Interval history: Follow-up for end stage renal disease on hemodialysis. No apparent distress noted at the time of my visit; major complaint is that of fatigue and being tired; no apparent distress noted; no issues/events overnight or earlier this morning. Exam Narrative: General: elderly but WD/WN female in NAD Heart: normal S1 and S2; no rub Lungs: clear aneriorly; decreased at bases Abdomen: soft, nontender, nondistended, positive bowel sounds Extremities: no cyanosis or clubbing; no edema Skin: warm and dry Objective Data Vital Signs Vital Signs: Vital Signs Temp Pulse Resp BP Pulse Ox O2 Del Method 03/21/24 08:02 66 03/21/24 10:12 89 03/21/24 00:00 98.5 F 74 181/70 H 03/21/24 05:39 98.2 F 63 16 172/61 H 99 03/21/24 04:00 64 03/21/24 00:00 74 03/20/24 20:00 75 03/20/24 20:00 Room Air 03/20/24 20:41 72 03/20/24 20:06 98.5 F 72 20 208/71 H 94 03/20/24 17:03 167/53 H 03/20/24 16:00 69 03/20/24 15:11 97.8 F 66 16 180/61 H 95 03/20/24 12:00 67 03/20/24 12:19 68 16 168/73 H 98 Intake/Output Intake/Output: Intake & Output 03/18/24 03/19/24 03/20/24 03/21/24 23:59 23:59 23:59 23:59 Intake Total 770 490 Output Total 0 Balance 770 490 Meds/Results Medications: Active Medications Generic Name Dose Route Start Last Admin Trade Name Freq PRN Reason Stop Dose Admin Acetaminophen 650 mg 03/20/24 09:25 03/20/24 09:36 Acetaminophen 325 Mg Tablet PO 650 mg Q6H PRN Administration Mild Pain (1-3) or Fever Albuterol 2 puff 03/20/24 06:22 Albuterol Sulfate (*Sp) Aerosol 1 Puff INHALATION Q6H PRN Shortness Of Breath Or Wheezing Allopurinol 100 mg 03/20/24 08:00 03/21/24 10:10 Allopurinol 100 Mg Tablet PO 100 mg DAILY@0800 [facility] Administration Alprazolam 0.5 mg 03/20/24 06:22 03/21/24 05:27 Alprazolam (*Crx) 0.5 Mg Tablet PO 0.5 mg QID PRN Administration Anxiety Amantadine HCl 100 mg 03/22/24 09:00 Amantadine Hcl 100 Mg Capsule PO Mo@0900 [facility] Anastrozole 1 mg 03/20/24 09:00 03/21/24 10:10 Anastrozole (*Chemo) 1 Mg Tablet PO 1 mg DAILY PHYLICIA Administration Aspirin 81 mg 03/20/24 11:00 03/21/24 10:12 Aspirin 81 Mg Enteric Tablet PO 81 mg QAM PHYLICIA Administration Atorvastatin Calcium 20 mg 03/20/24 21:00 03/20/24 20:41 Atorvastatin 20 Mg Tablet PO 20 mg HS PHYLICIA Administration Carvedilol 6.25 mg 03/20/24 09:00 03/21/24 10:12 Carvedilol 6.25 Mg Tablet PO 6.25 mg Q12HR PH[facility]ICIA Administration Docusate Sodium 100 mg 03/20/24 06:25 03/21/24 05:27 Docusate Sodium 100 Mg Capsule PO 100 mg Q12H PH[facility] Administration Fluticasone Propionate 1 spray 03/20/24 06:22 Fluticasone Propionate 0.05% Na Spr 16 Gm Btl (*Bkc) NASAL DAILY PRN allergies Folic Acid 1 mg 03/20/24 09:00 03/21/24 10:10 Folic Acid 1 Mg Tablet PO 1 mg DAILY PH[facility]ICIA Administration Furosemide 80 mg 03/20/24 09:00 03/21/24 10:10 Furosemide 80 Mg Tablet PO 80 mg DAILY PH[facility] Administration Hydralazine HCl 100 mg 03/20/24 08:00 03/21/24 10:09 Hydralazine Hcl 50 Mg Tablet PO 100 mg TIDWM PH[facility]ICIA Administration Hydralazine HCl 10 mg 03/20/24 15:22 03/20/24 20:42 Hydralazine Hcl 20 Mg/Ml Vial IV PUSH 10 mg Q6HR PRN Administration Blood Pressure - High Ceftriaxone Sodium 1 gm in 50 mls @ 100 mls/hr 03/20/24 21:00 03/20/24 21:15 Rocephin 1 Gm/Ns 50 Ml IVPB Infused Q24H [facility] Infusion Doxycycline Hyclate 100 mg in 100 mls @ 100 mls/hr 03/20/24 09:45 03/21/24 10:12 Vibramycin 100 Mg/Ns 100 Ml IVPB 100 mls/hr Q12HR PH[facility]ICIA Administration Insulin Glargine 6 units 03/20/24 09:00 03/21/24 10:17 Insulin Glargine (*Bkc) 100 Units/Ml SUB-Q 6 units DAILY [facility]IC[facility] Administration Lamotrigine 100 mg 03/20/24 09:00 03/21/24 10:09 Lamotrigine 100 Mg Tablet PO 100 mg Q12HR PH[facility] Administration Lamotrigine 50 mg 03/20/24 09:00 03/21/24 10:09 Lamotrigine 50 Mg Tablet PO 50 mg Q12HR PH[facility] Administration Levetiracetam 750 mg 03/20/24 09:00 03/21/24 10:11 Levetiracetam 250 Mg Tablet PO 750 mg DAILY PH[facility] Administration Levothyroxine Sodium 50 mcg 03/20/24 06:50 03/21/24 05:27 Levothyroxine Sodium 50 Mcg Tablet PO 50 mcg DAILY@0630 [facility] Administration Losartan Potassium 100 mg 03/20/24 09:00 03/21/24 10:12 Losartan Potassium 50 Mg Tablet PO 100 mg DAILY PH[facility] Administration Miscellaneous Information 0 each 03/20/24 07:00 03/21/24 00:18 Naloxegol [Movantik] 25 Mg Tablet- Nonformulary. Please Obtain A Home Supply If Possible. XX 04/19/24 06:59 Not Given CLARIFY [facility] Miscellaneous Information 0 each 03/20/24 07:05 03/21/24 00:18 Vortioxetine- Nonformulary. Please Obtain A Home Supply If Possible. XX 04/19/24 07:04 Not Given CLARIFY [facility] Montelukast Sodium 10 mg 03/20/24 21:00 03/20/24 20:42 Montelukast Sodium 10 Mg Tablet PO 10 mg HS PH[facility] Administration Nifedipine 90 mg 03/21/24 09:00 03/21/24 10:10 Nifedipine 30 Mg Tab.Er.24 PO 90 mg DAILY [facility] Administration Nitroglycerin 0.4 mg 03/20/24 10:10 03/20/24 10:37 Nitroglycerin Sl 0.4 Mg Tablet SUBLINGUAL 0.4 mg Q5MIN PRN Administration Chest Pain Non-Formulary Medication 25 mg 03/20/24 09:00 Naloxegol [Movantik] PO 04/19/24 08:59 DAILY [facility] Non-Formulary Medication 20 mg 03/20/24 09:00 Vortioxetine [Trintellix] PO 04/19/24 08:59 DAILY [facility] Oxycodone HCl 2.5 mg 03/20/24 06:49 Oxycodone Hcl (*Crx) 2.5 Mg Tab Ir PO Q4H PRN Pain (Scale Score 4-6) Oxycodone/Acetaminophen 1 tablet 03/20/24 06:48 Oxycodone/Acetaminophen (*Crx) 5-325 Mg Tablet PO Q4H PRN Pain (Scale Score 4-6) Pantoprazole Sodium 40 mg 03/20/24 09:00 03/21/24 10:10 Pantoprazole 40 Mg Tablet PO 40 mg QAM PHYLICIA Administration Polyethylene Glycol 17 gm 03/20/24 06:22 Polyethylene Glycol 3350 17 Gm Powd.Pack PO BID PRN Constipation Ropinirole HCl 1 mg 03/20/24 09:00 03/21/24 10:09 Ropinirole Hcl 1 Mg Tablet PO 1 mg QAM PHYLICIA Administration Ropinirole HCl 1.5 mg 03/20/24 21:00 03/20/24 20:41 Ropinirole Hcl 0.5 Mg Tablet PO 1.5 mg HS PHYLICIA Administration Sevelamer Carbonate 2,400 mg 03/20/24 08:00 03/21/24 10:09 Sevelamer Carbonate 800 Mg Tablet PO 2,400 mg TIDWM PHYLICIA Administration Tizanidine HCl 4 mg 03/20/24 06:22 Tizanidine Hcl 4 Mg Tablet PO BID PRN Muscle Spasm Radiology Results: ITS Impressions Chest X-Ray 03/19/24 23:24 IMPRESSION: Cardiomegaly with cardiac decompensation and pulmonary edema. Right basal pneumonia. Labs Labs: Laboratory Tests 03/21/24 06:14 03/21/24 06:14 Calcium 7.8 L Magnesium 2.0 Iron 40 TIBC 179 L % Saturation 22 Ferritin 761.00 H Total Bilirubin 0.5 AST 16 ALT 6 Alkaline Phosphatase 197 H Total Protein 6.0 L Albumin 3.5 Vitamin B12 534.0 Folate 8.7 Microbiology 03/20/24 03:53 Blood Blood Culture - Preliminary 03/20/24 03:53 Blood Blood Culture - Preliminary
[2024-03-21 16:54] LABS: Glucose Point of Care 139 mg/dl (65-105)
[2024-03-21] MEDS: rOPINIRole HCL 0.5 MG TABLET 1.5 MG PO (22:02)
[2024-03-21] MEDS: MONTELUKAST SODIUM 10 MG TABLET PO (22:03)
[2024-03-21] MEDS: ATORVASTATIN 20 MG TABLET PO (22:03)
[2024-03-22] VITALS (29 sets, daily range): BP systolic 143–209; BP diastolic 51–89; PULSE 57–69; RESP 18–20; TEMP 36.1–37; O2SAT 97–100
[2024-03-22] MEDS: oxyCODONE/ACETAMINOPHEN (*CRX) 5-325 MG TABLET 1 TABLET PO ×3 (00:32→13:19)
[2024-03-22] MEDS: ALBUTEROL SULFATE (*SP) AEROSOL 1 PUFF 2 PUFF INHALATION (04:35)
--- NOTE | 2024-03-22 04:57 | ECG_ITS ---
Test Date: 2024-03-22 05:14:50 Measurements Intervals [place] Rate: 59 P: 50 RI: 236 QRS: 50 QRSD: 102 T: 233 QT: 524 QTc: 522 Interpretive Statements SINUS BRADYCARDIA WITH FIRST DEGREE AV BLOCK ST DEVIATION AND MARKED T-WAVE ABNORMALITY, CONSIDER ANTEROLATERAL ISCHEMIA [-0.5+ mV T WAVE IN I/aVL/V3-V6] ST DEVIATION AND MODERATE T-WAVE ABNORMALITY, CONSIDER INFERIOR ISCHEMIA [-0.1+ mV T WAVE IN II/aVF] LONG QT INTERVAL ABNORMAL ECG Electronically Signed On 03-22-2024 10:44:39 CDT by Ramírez Motley M.D.
[2024-03-22] MEDS: MORPHINE SULFATE (*CRX) 2 MG/ML INJ 1 MG IV PUSH (05:17)
[2024-03-22] MEDS: DOCUSATE SODIUM 100 MG CAPSULE PO ×2 (05:46→17:15)
[2024-03-22] MEDS: LEVOTHYROXINE SODIUM 50 MCG TABLET PO (05:46)
[2024-03-22 06:15] LABS: Basophils Percent Auto 0.4 % (0.2-1.2); Eosinophils Absolute Auto 0.5 K/mm3 (0-0.3); Eosinophils Percent Auto 9.4 % (0-4.4); Hematocrit 23.2 % (37.0-47.0); Immature Granulocyte Absolute 0.03 K/mm3 (0.00-0.031); Immature Granulocyte Percent A 0.5 % (0-0.5); Lymphocytes Absolute Auto 0.84 K/mm3 (0.9-3.2); Lymphocytes Percent Auto 14.8 % (18.3-44.2); Mean Corpuscular HGB Conc 29.7 g/dl (32-36); Mean Corpuscular Hemoglobin 29.4 pg (26-34); Mean Corpuscular Volume 98.7 fl (80-100); Mean Platelet Volume 9.6 fl (7.4-10.4); Monocytes Absolute Auto 0.6 K/mm3 (0.1-0.6); Monocytes Percent Auto 10.2 % (2.6-8.5); Neutrophils Absolute Auto 3.7 K/mm3 (1.3-6.7); Neutrophils Percent Auto 64.7 % (45.5-73.1); Platelet Count Result 144 k/mm3 (150-375); Red Blood Count 2.35 M/mm3 (4.2-5.4); Red Cell Distribution Width 17.5 % (11.5-14.5); White Blood Count 5.7 K/mm3 (4.5-10.0)
[2024-03-22 06:37] LABS: Troponin I 0.062 ng/mL (0.000-0.034)
[2024-03-22 06:43] LABS: Anion Gap 10 mmol/L (4-12); Blood Urea Nitrogen 38 mg/dL (7-17); Calcium 7.8 mg/dL (8.4-10.2); Carbon Dioxide 28 mmol/L (22-30); Chloride 97 mmol/L (98-107); Estimated CRCL calculation 9 ml/min; Estimated Glomerular Filt Rate 7; Glucose 116 mg/dL (65-110); Potassium 3.6 mmol/L (3.4-5.0); Sodium 135 mmol/L (137-145)
[2024-03-22 06:44] LABS: Albumin Level 3.3 g/dL (3.5-5.1); Alkaline Phosphatase 182 U/L (38-126); Aspartate Amino Transferase 16 U/L (14-36); Bilirubin,Total 0.4 mg/dL (0.2-1.3)
[2024-03-22 06:57] LABS: Alanine Aminotransferase < 6 U/L (6-35)
[2024-03-22 07:13] LABS: Hemoglobin 6.9 g/dL (12.0-15.0)
[2024-03-22 07:14] LABS: Anisocytosis 1+; Platelet Estimate Decreased (Adequate); Polychromasia 1+
[2024-03-22 07:15] LABS: Schistocytes Rare
[2024-03-22] MEDS: DOXYCYCLINE 100 MG/NS 100 ML 100 MG/100 ML BAG IVPB (07:30)
[2024-03-22 07:34] LABS: Glucose Point of Care 116 mg/dl (65-105)
[2024-03-22] MEDS: EPOETIN ALFA 20,000 UNITS/ML VIAL 20000 UNITS IV PUSH (09:55)
--- NOTE | 2024-03-22 11:04 | P.PNNP_ITS ---
Progress Note: A&P Assessment and Plan (1) End stage renal disease: Code(s): N18.6 - End stage renal disease Status: Chronic Assessment and Plan: * HD today * continue outpatient dialysis schedule of // * follow electrolytes, volume status, and clearance (2) Pneumonia: Qualifiers: Laterality: unspecified laterality Lung location: unspecified part of lung Pneumonia type: due to unspecified organism Qualified Code(s): J18.9 - Pneumonia, unspecified organism Code(s): J18.9 - Pneumonia, unspecified organism Status: Acute Assessment and Plan: * as suggested by admission imaging * follow respiratory status (stable at this time) * follow culture data * on antibiotics * continue supportive therapy (3) Hypertension: Qualifiers: Hypertension type: secondary to other renal disorders Qualified Code(s): I15.1 - Hypertension secondary to other renal disorders; N28.89 - Other specified disorders of kidney and ureter Code(s): I10 - Essential (primary) hypertension Status: Acute Assessment and Plan: * elevated on presentation * seems to fluctuate to extremes * will try to be more aggressive with ultrafiltration with HD to see if that helps * resumed home medications * follow trend of hemodynamics (4) Anemia: Qualifiers: Anemia type: due to chronic kidney disease Chronic kidney disease stage: on chronic dialysis Qualified Code(s): N18.6 - End stage renal disease; D63.1 - Anemia in chronic kidney disease; Z99.2 - Dependence on renal dialysis Code(s): D64.9 - Anemia, unspecified Status: Acute Assessment and Plan: * partly related to ESRD * however, recurrent issues with anemia requiring PRBC transfusion on previous hospitalization * 4 units transfused during January 2024 hospitalization * prior GI work-up noted * Epogen/Retacrit with HD * iron stores with borderline iron deficiency; b12 and folate okay * follow trend on H/H (5) Paroxysmal A-fib: Code(s): I48.0 - Paroxysmal atrial fibrillation Status: Acute Assessment and Plan: * stable at this time * no anticoagulation due to recurrent/chronic anemia (6) Generalized weakness: Code(s): R53.1 - Weakness Status: Acute Assessment and Plan: * as noted on admission * possibly partly related to anemia and recent operative procedure (left arm AV access placement) * PT/OT Will continue to follow. Subjective Date/time seen: 03/22/24 11:04 Interval history: Follow-up for end stage renal disease on hemodialysis. Tolerating dialysis treatment at the time of my visit (seen on HD at 10:55AM); blood pressure still somewhat erratic at this time but will re-assess post dialysis; some chest discomfort/SOB overnight but apparently improved with a nebulizer treatment. Exam Narrative: General: elderly but WD/WN female in NAD Heart: normal S1 and S2; no rub Lungs: clear anteriorly; decreased at bases Abdomen: soft, nontender, nondistended, positive bowel sounds Extremities: no cyanosis or clubbing; no edema Skin: warm and intact Objective Data Vital Signs Vital Signs: Vital Signs Temp Pulse Resp BP Pulse Ox O2 Del Method 03/22/24 09:45 61 205/85 H 03/22/24 09:30 62 195/75 H 03/22/24 08:58 63 188/63 H 03/22/24 08:50 98 F 63 19 193/72 H 99 03/22/24 09:15 61 197/75 H 03/22/24 08:03 66 03/22/24 04:00 67 03/22/24 00:00 69 03/21/24 20:00 64 03/22/24 04:35 62 20 03/22/24 04:50 97.0 F L 57 L 20 143/52 H 97 03/21/24 22:04 68 03/21/24 21:48 98.3 F 63 18 151/58 H 93 03/21/24 16:03 62 03/21/24 15:16 98.7 F 61 16 175/61 H 96 03/21/24 13:30 Room Air Intake/Output Intake/Output: Intake & Output 03/19/24 03/20/24 03/21/24 03/22/24 23:59 23:59 23:59 23:59 Intake Total 770 1250 200 Output Total 0 Balance 770 1250 200 Meds/Results Medications: Active Medications Generic Name Dose Route Start Last Admin Trade Name Freq PRN Reason Stop Dose Admin Acetaminophen 650 mg 03/20/24 09:25 03/20/24 09:36 Acetaminophen 325 Mg Tablet PO 650 mg Q6H PRN Administration Mild Pain (1-3) or Fever Albuterol 2 puff 03/20/24 06:22 03/22/24 04:35 Albuterol Sulfate (*Sp) Aerosol 1 Puff INHALATION 2 puff Q6H PRN Administration Shortness Of Breath Or Wheezing Allopurinol 100 mg 03/20/24 08:00 03/21/24 10:10 Allopurinol 100 Mg Tablet PO 100 mg DAILY@0800 [facility] Administration Alprazolam 0.5 mg 03/20/24 06:22 03/21/24 05:27 Alprazolam (*Crx) 0.5 Mg Tablet PO 0.5 mg QID PRN Administration Anxiety Amantadine HCl 100 mg 03/22/24 09:00 Amantadine Hcl 100 Mg Capsule PO Mo@0900 [facility] Anastrozole 1 mg 03/20/24 09:00 03/21/24 10:10 Anastrozole (*Chemo) 1 Mg Tablet PO 1 mg DAILY PHYLICIA Administration Aspirin 81 mg 03/20/24 11:00 03/21/24 10:12 Aspirin 81 Mg Enteric Tablet PO 81 mg QAM PHYLICIA Administration Atorvastatin Calcium 20 mg 03/20/24 21:00 03/21/24 22:03 Atorvastatin 20 Mg Tablet PO 20 mg HS PHYLICIA Administration Carvedilol 6.25 mg 03/20/24 09:00 03/22/24 11:28 Carvedilol 6.25 Mg Tablet PO 6.25 mg Q12HR PHYLICIA Administration Clonidine HCl 0.05 mg 03/22/24 11:15 03/22/24 11:37 Clonidine Hcl 0.05 Mg Tablet PO 0.05 mg Q12HR PHYLICIA Administration Docusate Sodium 100 mg 03/20/24 06:25 03/22/24 05:46 Docusate Sodium 100 Mg Capsule PO 100 mg Q12H PH[facility]IA Administration Epoetin George 20,000 units 03/22/24 20:10 03/22/24 09:55 Epoetin George 20,000 Units/Ml Vial IV PUSH 03/22/24 20:11 20,000 units ONCE ONE Administration Fluticasone Propionate 1 spray 03/20/24 06:22 Fluticasone Propionate 0.05% Na Spr 16 Gm Btl (*Bkc) NASAL DAILY PRN allergies Folic Acid 1 mg 03/20/24 09:00 03/21/24 10:10 Folic Acid 1 Mg Tablet PO 1 mg DAILY PH[facility] Administration Furosemide 80 mg 03/20/24 09:00 03/21/24 10:10 Furosemide 80 Mg Tablet PO 80 mg DAILY PHYLICIA Administration Hydralazine HCl 100 mg 03/20/24 08:00 03/22/24 11:31 Hydralazine Hcl 50 Mg Tablet PO 100 mg TIDWM PH[facility]ICIA Administration Hydralazine HCl 10 mg 03/20/24 15:22 03/20/24 20:42 Hydralazine Hcl 20 Mg/Ml Vial IV PUSH 10 mg Q6HR PRN Administration Blood Pressure - High Ceftriaxone Sodium 1 gm in 50 mls @ 100 mls/hr 03/20/24 21:00 03/22/24 00:14 Rocephin 1 Gm/Ns 50 Ml IVPB 100 mls/hr Q24H PH[facility]ICIA Administration Doxycycline Hyclate 100 mg in 100 mls @ 100 mls/hr 03/20/24 09:45 03/22/24 08:30 Vibramycin 100 Mg/Ns 100 Ml IVPB Infused Q12HR PH[facility]ICIA Infusion Albumin Human 50 mls @ 999 mls/hr 03/22/24 07:10 Albutein IVPB 04/21/24 07:09 Q10M PRN HYPOTENSION Iron Sucrose 100 mg/ Sodium 55 mls @ 220 mls/hr 03/22/24 20:13 03/22/24 12:24 Chloride IVPB 03/22/24 20:27 220 mls/hr ONCE ONE Administration Sodium Chloride 250 mls @ 30 mls/hr 03/22/24 07:36 Normal Saline Iv IV CONT 03/22/24 15:55 .Q8H20M STA Iron Sucrose 100 mg/ Sodium 55 mls @ 220 mls/hr 03/22/24 15:00 Chloride IVPB 03/22/24 15:14 ONCE ONE Insulin Glargine 6 units 03/20/24 09:00 03/21/24 10:17 Insulin Glargine (*Bkc) 100 Units/Ml SUB-Q 6 units DAILY PHYLICIA Administration Lamotrigine 100 mg 03/20/24 09:00 03/22/24 11:35 Lamotrigine 100 Mg Tablet PO Not Given Q12HR PH[facility]ICIA Lamotrigine 50 mg 03/20/24 09:00 03/21/24 22:03 Lamotrigine 50 Mg Tablet PO 50 mg Q12HR PHYLICIA Administration Levetiracetam 750 mg 03/20/24 09:00 03/21/24 10:11 Levetiracetam 250 Mg Tablet PO 750 mg DAILY PHYLICIA Administration Levothyroxine Sodium 50 mcg 03/20/24 06:50 03/22/24 05:46 Levothyroxine Sodium 50 Mcg Tablet PO 50 mcg DAILY@0630 PHYLICIA Administration Losartan Potassium 100 mg 03/20/24 09:00 03/22/24 11:27 Losartan Potassium 50 Mg Tablet PO 100 mg DAILY PHYLICIA Administration Miscellaneous Information 0 each 03/20/24 07:00 03/21/24 00:18 Naloxegol [Movantik] 25 Mg Tablet- Nonformulary. Please Obtain A Home Supply If Possible. XX 04/19/24 06:59 Not Given CLARIFY PH[facility]IC[facility] Miscellaneous Information 0 each 03/20/24 07:05 03/21/24 00:18 Vortioxetine- Nonformulary. Please Obtain A Home Supply If Possible. XX 04/19/24 07:04 Not Given CLARIFY PH[facility] Montelukast Sodium 10 mg 03/20/24 21:00 03/21/24 22:03 Montelukast Sodium 10 Mg Tablet PO 10 mg HS PHYLICIA Administration Nifedipine 90 mg 03/21/24 09:00 03/22/24 11:28 Nifedipine 30 Mg Tab.Er.24 PO 90 mg DAILY PHYLICIA Administration Nitroglycerin 0.4 mg 03/20/24 10:10 03/20/24 10:37 Nitroglycerin Sl 0.4 Mg Tablet SUBLINGUAL 0.4 mg Q5MIN PRN Administration Chest Pain Non-Formulary Medication 25 mg 03/20/24 09:00 Naloxegol [Movantik] PO 04/19/24 08:59 DAILY PHYLICIA Non-Formulary Medication 20 mg 03/20/24 09:00 Vortioxetine [Trintellix] PO 04/19/24 08:59 DAILY PHYL[facility] Oxycodone HCl 2.5 mg 03/20/24 06:49 Oxycodone Hcl (*Crx) 2.5 Mg Tab Ir PO Q4H PRN Pain (Scale Score 4-6) Oxycodone/Acetaminophen 1 tablet 03/20/24 06:48 03/22/24 05:46 Oxycodone/Acetaminophen (*Crx) 5-325 Mg Tablet PO 1 tablet Q4H PRN Administration Pain (Scale Score 4-6) Pantoprazole Sodium 40 mg 03/20/24 09:00 03/21/24 10:10 Pantoprazole 40 Mg Tablet PO 40 mg QAM PHYLICIA Administration Polyethylene Glycol 17 gm 03/20/24 06:22 Polyethylene Glycol 3350 17 Gm Powd.Pack PO BID PRN Constipation Ropinirole HCl 1 mg 03/20/24 09:00 03/21/24 10:09 Ropinirole Hcl 1 Mg Tablet PO 1 mg QAM PHYLICIA Administration Ropinirole HCl 1.5 mg 03/20/24 21:00 03/21/24 22:02 Ropinirole Hcl 0.5 Mg Tablet PO 1.5 mg HS PHYLICIA Administration Sevelamer Carbonate 2,400 mg 03/20/24 08:00 03/22/24 11:35 Sevelamer Carbonate 800 Mg Tablet PO Not Given TIDWM PHYLICIA Tizanidine HCl 4 mg 03/20/24 06:22 Tizanidine Hcl 4 Mg Tablet PO BID PRN Muscle Spasm Radiology Results: ITS Impressions Chest X-Ray 03/19/24 23:24 IMPRESSION: Cardiomegaly with cardiac decompensation and pulmonary edema. Right basal pneumonia. Labs Labs: Laboratory Tests 03/22/24 06:00 03/22/24 06:00 Calcium 7.8 L Magnesium 2.0 Total Bilirubin 0.4 AST 16 ALT < 6 L Alkaline Phosphatase 182 H Troponin I 0.062 H* Total Protein 6.0 L Albumin 3.3 L Microbiology 03/21/24 22:42 Sputum Sputum Culture - Final
--- NOTE | 2024-03-22 11:13 | P.PNIM_ITS ---
Progress Note: A&P Assessment and Plan (1) Pneumonia: Qualifiers: Laterality: unspecified laterality Lung location: unspecified part of lung Pneumonia type: due to unspecified organism Qualified Code(s): J18.9 - Pneumonia, unspecified organism Code(s): J18.9 - Pneumonia, unspecified organism Status: Acute (2) End stage renal disease: Code(s): N18.6 - End stage renal disease Status: Chronic (3) Generalized weakness: Code(s): R53.1 - Weakness Status: Acute (4) Paroxysmal A-fib: Code(s): I48.0 - Paroxysmal atrial fibrillation Status: Acute (5) Uncontrolled hypertension: Code(s): I10 - Essential (primary) hypertension Status: Acute (6) Anemia in ESRD (end-stage renal disease): Code(s): N18.6 - End stage renal disease; D63.1 - Anemia in chronic kidney disease Status: Acute (7) Neuropathy: Code(s): G62.9 - Polyneuropathy, unspecified Status: Acute Plan This is a 68-year-old female presents to the hospital with shortness of breath which has been worsening over the past few days. ED evaluation vitals were stable except hypertension blood pressure 1 to 116/76 she has been undergoing dialysis as previously scheduled. Is noted blood pressure has always been elevated. Laboratory evaluation was performed which showed normal WBC at 9 hemoglobin of 8 creatinine of 2.9 -x3 0.3. Received a dose of hydralazine for her blood pressure. EKG showed nonspecific ST-T changes. Elevated was mildly elevated at 0.045 subsequent level up trended to 0.129. BNP more than 30,000. Chest x-ray showed right basilar pneumonia. Along with findings of cardiomegaly cardiac decompensation and pulmonary edema. she is admitted for further treatment and evaluation. Right basal pneumonia: Ceftriaxone doxycycline ordered. Sputum culture Elevated troponin up trending 0.045-0.129. EKG with subtle ST depressions will repeat EKG. Does have history of GI bleed in the past. Consulted Cardiology. Added aspirin 81 mg daily Hypertension uncontrolled on admission on hydralazine p.r.n. Procardia to 90 mg also on hydralazine 100 mg t.i.d. along with losartan 100 mg daily Coreg 6.25 twice daily. Add clonidine Chronic anemia: Hemoglobin around 7-8 and stable no signs of active bleeding. Anemia worsened down to 6.9 today. Transfuse 1 unit PRBC. End-stage renal disease on hemodialysis Friday Nephrology consult Noninvasive reflux disease/gastritis / esophagitis Gastric polyp previously evaluated by EGD on 01/13/2024 Anxiety depression/bipolar disorder Breast cancer status post lumpectomy Coronary artery disease Gastroparesis Tardive dyskinesia KACIE History of peptic ulcer Neuropathy Paroxysmal atrial fibrillation used to be on anticoagulation but now held due to recurrent anemia and GI bleed DVT prophylaxis SCDs Code status full code Subjective Date/time seen: 03/22/24 11:13 Interval history: Overnight had an episode of chest pain shortness of breath. Improved with DuoNeb treatment done. No dark stool or blood in stool reported blood pressure still elevated. Review of Systems Review of Systems: All systems reviewed & are unremarkable except as noted in HPI and below Exam Narrative: Constitutional: Well-appearing, no acute distress Head: Atraumatic, no deformities. Eyes: Pupils equal, round, and reactive to light. Neck: Supple, no tracheal deviation, no JVD. ENMT: Mucous membranes moist Cardiovascular: S1, S2 auscultated. No murmurs, rubs, or gallops. Respiratory: Lung sounds equal. No wheezes, rales, or rhonchi. Gastrointestinal: Abdomen was soft and non-tender. Non-distended. No rebound or guarding. Musculoskeletal: No edema cyanosis or clubbing Neurological: Strength 5/5 in extremities. Cranial nerves I-XII grossly intact. Distal sensation intact. Mental Status: Awake, alert and oriented x3. Follows commands Objective Data Vital Signs Vital Signs: Vital Signs - 24 hr 03/21/24 12:03 03/21/24 13:30 03/21/24 15:16 Temperature 98.7 F Pulse Rate 60 61 Respiratory Rate 16 Blood Pressure 175/61 H Pulse Oximetry 96 Oxygen Delivery Room Air 03/21/24 16:03 03/21/24 21:48 03/21/24 22:04 Temperature 98.3 F Pulse Rate 62 63 68 Respiratory Rate 18 Blood Pressure 151/58 H Pulse Oximetry 93 Oxygen Delivery 03/22/24 04:50 03/22/24 04:35 03/21/24 20:00 Temperature 97.0 F L Pulse Rate 57 L 62 64 Respiratory Rate 20 20 Blood Pressure 143/52 H Pulse Oximetry 97 Oxygen Delivery 03/22/24 00:00 03/22/24 04:00 03/22/24 08:03 Temperature Pulse Rate 69 67 66 Respiratory Rate Blood Pressure Pulse Oximetry Oxygen Delivery Intake/Output Intake/Output: Intake & Output 03/19/24 03/20/24 03/21/24 03/22/24 23:59 23:59 23:59 23:59 Intake Total 770 1250 0 Output Total 0 Balance 770 1250 0 Meds/Results Medications: Active Medications Generic Name Dose Route Start Last Admin Trade Name Freq PRN Reason Stop Dose Admin Acetaminophen 650 mg 03/20/24 09:25 03/20/24 09:36 Acetaminophen 325 Mg Tablet PO 650 mg Q6H PRN Administration Mild Pain (1-3) or Fever Albuterol 2 puff 03/20/24 06:22 03/22/24 04:35 Albuterol Sulfate (*Sp) Aerosol 1 Puff INHALATION 2 puff Q6H PRN Administration Shortness Of Breath Or Wheezing Allopurinol 100 mg 03/20/24 08:00 03/21/24 10:10 Allopurinol 100 Mg Tablet PO 100 mg DAILY@0800 PHYLICIA Administration Alprazolam 0.5 mg 03/20/24 06:22 03/21/24 05:27 Alprazolam (*Crx) 0.5 Mg Tablet PO 0.5 mg QID PRN Administration Anxiety Amantadine HCl 100 mg 03/22/24 09:00 Amantadine Hcl 100 Mg Capsule PO Mo@0900 PHYLICIA Anastrozole 1 mg 03/20/24 09:00 03/21/24 10:10 Anastrozole (*Chemo) 1 Mg Tablet PO 1 mg DAILY PHYLICIA Administration Aspirin 81 mg 03/20/24 11:00 03/21/24 10:12 Aspirin 81 Mg Enteric Tablet PO 81 mg QAM PHYLICIA Administration Atorvastatin Calcium 20 mg 03/20/24 21:00 03/21/24 22:03 Atorvastatin 20 Mg Tablet PO 20 mg HS PHYLICIA Administration Carvedilol 6.25 mg 03/20/24 09:00 03/21/24 22:04 Carvedilol 6.25 Mg Tablet PO 6.25 mg Q12HR PHYLICIA Administration Docusate Sodium 100 mg 03/20/24 06:25 03/22/24 05:46 Docusate Sodium 100 Mg Capsule PO 100 mg Q12H PHYLICIA Administration Epoetin George 20,000 units 03/22/24 20:10 03/22/24 09:55 Epoetin George 20,000 Units/Ml Vial IV PUSH 03/22/24 20:11 20,000 units ONCE ONE Administration Fluticasone Propionate 1 spray 03/20/24 06:22 Fluticasone Propionate 0.05% Na Spr 16 Gm Btl (*Bkc) NASAL DAILY PRN allergies Folic Acid 1 mg 03/20/24 09:00 03/21/24 10:10 Folic Acid 1 Mg Tablet PO 1 mg DAILY PHYLICIA Administration Furosemide 80 mg 03/20/24 09:00 03/21/24 10:10 Furosemide 80 Mg Tablet PO 80 mg DAILY PHYLICIA Administration Hydralazine HCl 100 mg 03/20/24 08:00 03/21/24 16:56 Hydralazine Hcl 50 Mg Tablet PO 100 mg TIDWM PHYLICIA Administration Hydralazine HCl 10 mg 03/20/24 15:22 03/20/24 20:42 Hydralazine Hcl 20 Mg/Ml Vial IV PUSH 10 mg Q6HR PRN Administration Blood Pressure - High Ceftriaxone Sodium 1 gm in 50 mls @ 100 mls/hr 03/20/24 21:00 03/22/24 00:14 Rocephin 1 Gm/Ns 50 Ml IVPB 100 mls/hr Q24H PHYLICIA Administration Doxycycline Hyclate 100 mg in 100 mls @ 100 mls/hr 03/20/24 09:45 03/21/24 22:03 Vibramycin 100 Mg/Ns 100 Ml IVPB 100 mls/hr Q12HR PHYLICIA Administration Albumin Human 50 mls @ 999 mls/hr 03/22/24 07:10 Albutein IVPB 04/21/24 07:09 Q10M PRN HYPOTENSION Iron Sucrose 100 mg/ Sodium 55 mls @ 220 mls/hr 03/22/24 20:13 Chloride IVPB 03/22/24 20:27 ONCE ONE Sodium Chloride 250 mls @ 30 mls/hr 03/22/24 07:36 Normal Saline Iv IV CONT 03/22/24 15:55 .Q8H20M STA Insulin Glargine 6 units 03/20/24 09:00 03/21/24 10:17 Insulin Glargine (*Bkc) 100 Units/Ml SUB-Q 6 units DAILY PHYLICIA Administration Lamotrigine 100 mg 03/20/24 09:00 03/21/24 22:03 Lamotrigine 100 Mg Tablet PO 100 mg Q12HR PHYLICIA Administration Lamotrigine 50 mg 03/20/24 09:00 03/21/24 22:03 Lamotrigine 50 Mg Tablet PO 50 mg Q12HR PHYLICIA Administration Levetiracetam 750 mg 03/20/24 09:00 03/21/24 10:11 Levetiracetam 250 Mg Tablet PO 750 mg DAILY PHYLICIA Administration Levothyroxine Sodium 50 mcg 03/20/24 06:50 03/22/24 05:46 Levothyroxine Sodium 50 Mcg Tablet PO 50 mcg DAILY@0630 PHYLICIA Administration Losartan Potassium 100 mg 03/20/24 09:00 03/21/24 10:12 Losartan Potassium 50 Mg Tablet PO 100 mg DAILY PHYLICIA Administration Miscellaneous Information 0 each 03/20/24 07:00 03/21/24 00:18 Naloxegol [Movantik] 25 Mg Tablet- Nonformulary. Please Obtain A Home Supply If Possible. XX 04/19/24 06:59 Not Given CLARIFY PHYLICIA Miscellaneous Information 0 each 03/20/24 07:05 03/21/24 00:18 Vortioxetine- Nonformulary. Please Obtain A Home Supply If Possible. XX 04/19/24 07:04 Not Given CLARIFY PHYLICIA Montelukast Sodium 10 mg 03/20/24 21:00 03/21/24 22:03 Montelukast Sodium 10 Mg Tablet PO 10 mg HS PHYLICIA Administration Nifedipine 90 mg 03/21/24 09:00 03/21/24 10:10 Nifedipine 30 Mg Tab.Er.24 PO 90 mg DAILY PHYLICIA Administration Nitroglycerin 0.4 mg 03/20/24 10:10 03/20/24 10:37 Nitroglycerin Sl 0.4 Mg Tablet SUBLINGUAL 0.4 mg Q5MIN PRN Administration Chest Pain Non-Formulary Medication 25 mg 03/20/24 09:00 Naloxegol [Movantik] PO 04/19/24 08:59 DAILY PHYLICIA Non-Formulary Medication 20 mg 03/20/24 09:00 Vortioxetine [Trintellix] PO 04/19/24 08:59 DAILY PHYLICIA Oxycodone HCl 2.5 mg 03/20/24 06:49 Oxycodone Hcl (*Crx) 2.5 Mg Tab Ir PO Q4H PRN Pain (Scale Score 4-6) Oxycodone/Acetaminophen 1 tablet 03/20/24 06:48 03/22/24 05:46 Oxycodone/Acetaminophen (*Crx) 5-325 Mg Tablet PO 1 tablet Q4H PRN Administration Pain (Scale Score 4-6) Pantoprazole Sodium 40 mg 03/20/24 09:00 03/21/24 10:10 Pantoprazole 40 Mg Tablet PO 40 mg QAM PHYLICIA Administration Polyethylene Glycol 17 gm 03/20/24 06:22 Polyethylene Glycol 3350 17 Gm Powd.Pack PO BID PRN Constipation Ropinirole HCl 1 mg 03/20/24 09:00 03/21/24 10:09 Ropinirole Hcl 1 Mg Tablet PO 1 mg QAM PHYLICIA Administration Ropinirole HCl 1.5 mg 03/20/24 21:00 03/21/24 22:02 Ropinirole Hcl 0.5 Mg Tablet PO 1.5 mg HS PHYLICIA Administration Sevelamer Carbonate 2,400 mg 03/20/24 08:00 03/21/24 16:56 Sevelamer Carbonate 800 Mg Tablet PO 2,400 mg TIDWM PHYLICIA Administration Tizanidine HCl 4 mg 03/20/24 06:22 Tizanidine Hcl 4 Mg Tablet PO BID PRN Muscle Spasm Radiology Results: ITS Impressions Chest X-Ray 03/19/24 23:24 IMPRESSION: Cardiomegaly with cardiac decompensation and pulmonary edema. Right basal pneumonia. Labs Labs: Laboratory Results - last 24 hr 03/21/24 03/21/24 03/22/24 11:28 16:44 06:00 WBC 5.7 RBC 2.35 L Hgb 6.9 L* Hct 23.2 L MCV 98.7 MCH 29.4 MCHC 29.7 L RDW 17.5 H Plt Count 144 L MPV 9.6 Immature Gran % (Auto) 0.5 Neut % (Auto) 64.7 Lymph % (Auto) 14.8 L [place] % (Auto) 10.2 H Eos % (Auto) 9.4 H Baso % (Auto) 0.4 Lymph # (Auto) 0.84 L [place] # (Auto) 0.6 Eos # (Auto) 0.5 H Baso # (Auto) 0.0 Abs Immat Gran (auto) 0.03 Absolute Neuts (auto) 3.7 Absolute Nucleated RBC 0.000 Nucleated RBC % 0.0 Platelet Estimate Decreased Polychromasia 1+ Anisocytosis 1+ Schistocytes Rare Sodium 135 L Potassium 3.6 Chloride 97 L Carbon Dioxide 28 Anion Gap 10 BUN 38 H Creatinine 5.80 H Estim Creat Clear Calc 9 Estimated GFR 7 L Glucose 116 H POC Capillary Glucose 171 H 139 H Calcium 7.8 L Magnesium 2.0 Total Bilirubin 0.4 AST 16 ALT < 6 L Alkaline Phosphatase 182 H Troponin I 0.062 H* Total Protein 6.0 L Albumin 3.3 L Blood Type Antibody Screen ANIVAL, IgG Interpret ANIVAL, Poly Interpret ANIVAL, Complement Interp Enhanced Crossmatch 03/22/24 03/22/24 07:22 08:09 WBC RBC Hgb Hct MCV MCH MCHC RDW Plt Count MPV Immature Gran % (Auto) Neut % (Auto) Lymph % (Auto) [place] % (Auto) Eos % (Auto) Baso % (Auto) Lymph # (Auto) [place] # (Auto) Eos # (Auto) Baso # (Auto) Abs Immat Gran (auto) Absolute Neuts (auto) Absolute Nucleated RBC Nucleated RBC % Platelet Estimate Polychromasia Anisocytosis Schistocytes Sodium Potassium Chloride Carbon Dioxide Anion Gap BUN Creatinine Estim Creat Clear Calc Estimated GFR Glucose POC Capillary Glucose 116 H Calcium Magnesium Total Bilirubin AST ALT Alkaline Phosphatase Troponin I Total Protein Albumin Blood Type O Positive Antibody Screen Positive ANIVAL, IgG Interpret Positive ANIVAL, Poly Interpret Not Performed ANIVAL, Complement Interp Negative Enhanced Crossmatch See Detail
[2024-03-22] MEDS: LOSARTAN POTASSIUM 50 MG TABLET 100 MG PO (11:27)
[2024-03-22] MEDS: carvediloL 6.25 MG TABLET PO ×2 (11:28→20:22)
[2024-03-22] MEDS: NIFEdipine 30 MG TAB.ER.24 90 MG PO (11:28)
[2024-03-22] MEDS: hydrALAZINE HCL 50 MG TABLET 100 MG PO ×3 (11:31→17:15)
[2024-03-22] MEDS: cloNIDine HCL 0.05 MG TABLET PO ×2 (11:37→20:22)
[2024-03-22] MEDS: IRON SUCROSE COMPLEX 100 MG in SODIUM CHLORIDE 0.9% IV 50 ML 220 MG IVPB ×2 (12:24→15:47)
[2024-03-22 13:12] LABS: Glucose Point of Care 103 mg/dl (65-105)
[2024-03-22] MEDS: SEVELAMER CARBONATE 800 MG TABLET 2400 MG PO ×2 (13:18→17:15)
[2024-03-22] MEDS: rOPINIRole HCL 1 MG TABLET PO (13:26)
[2024-03-22] MEDS: ASPIRIN 81 MG ENTERIC TABLET PO (13:26)
[2024-03-22] MEDS: levETIRAcetam 250 MG TABLET 750 MG PO (13:26)
[2024-03-22] MEDS: PANTOPRAZOLE 40 MG TABLET PO (13:26)
[2024-03-22] MEDS: lamoTRIgine 50 MG TABLET PO ×2 (13:27→20:23)
[2024-03-22] MEDS: ANASTROZOLE (*CHEMO) 1 MG TABLET PO (13:27)
[2024-03-22] MEDS: AMANTADINE HCL 100 MG CAPSULE PO (13:27)
[2024-03-22] MEDS: FOLIC ACID 1 MG TABLET PO (13:27)
[2024-03-22] MEDS: FUROSEMIDE 80 MG TABLET PO (13:27)
[2024-03-22] MEDS: allopurinoL 100 MG TABLET PO (13:27)
--- NOTE | 2024-03-22 15:32 | P.CONGI_ITS ---
GI Consult Note Consult date/time: 03/22/24 15:32 Reason for consult: History of recent melena. HPI: Yasmin Colbert is a 68 year old female With a history of hypertension, end- stage renal disease on dialysis and severe anemia. In December this year, she was found to have a gastric hyperplastic polyp, undergoing an endoscopic mucosal resection at [facility]. On 02/20/2024 she developed hematemesis and was found to have a clean based ulcer, in the expected site of the above- mentioned resection. The looser was not actively bleeding. The same day she underwent a colonoscopy finding multiple diverticula, small benign polyps which were not removed, and scars from recent colonic polypectomies which were closed with clips. Since then, patient reports no further melena or hematemesis, however she is currently found to have a drop in her hemoglobin, from 7.6-6.9, in the absence of overt gastrointestinal bleeding. Review of Systems Review of Systems: All systems reviewed & are unremarkable except as noted in HPI and below PMFSH Past Medical History Medical History Anxiety and depression Bipolar depression Breast cancer Constipation Coronary artery disease End stage renal disease On hemodialysis with peritoneal dialysis catheter in place Esophageal ulcer Gastric foveolar hyperplasia Gastric mass Benign hyperplastic foveolar mucosa partially obstructing pylorus found on EGD in October 2022. Repeat EGD two weeks later showed gastritis and NERD but no mass. She was treated with PPI. 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 Pozo. The dialysis catheter had been initially placed and May at [facility]. It was subsequently removed in mid October. S/P appendectomy (10/31/22) Dilated appendix, extensive adhesion lysis of adhesions around peritoneal dialysis catheter Status post cataract extraction of both eyes with insertion of intraocular lens Family History Family History Daughter Precancerous changes of the cervix Pancreatitis Daughter Colon cancer Precancerous changes of the cervix Unknown Diabetes mellitus Father Heart attack Sibling Pancreatitis Adry's disease Grandparent Heart attack Cerebrovascular accident Grandparent Cerebrovascular accident Social History Social History (Updated 03/20/24 @ 02:16 by Jada Vu) Social History: She lives with her of approximately 15 years. She has 4 children. She smoked about half a pack of cigarettes per day for about 14 years but quit smoking approximately 40 years ago. She denies any history of excessive alcohol use or illicit substance use Code status: Full code (however the patient states that she would not want to be on a ventilator long-term, she would not want a tracheostomy or a PEG tube) Healthcare power of attorney at law: Smoking packs per day: 2.5 Smoking cigarettes per day: 50.0 Years smoked: 12 Smoking pack-years: 30.00 Smoking status: Former smoker Alcohol intake: never Substance use: never Do You Feel Safe in your Home?: Yes Lack of Transportation: No Lack of Food: Never True Current Housing: I Have Housing Concerned About Future Housing: No Difficulty Paying Gas/Electric Bills: No Difficulty Paying for Meds: No Currently Unemployed: No Education: Decline to Answer Difficulty w/ Childcare or Family Care: No Occupation/Education: other Spiritual care concerns: No Meds Home Medications and Allergies Home Medications Medication Instructions Recorded Confirmed Type allopurinol 100 mg tablet 100 mg PO DAILY 11/01/22 03/20/24 History alprazolam 0.5 mg tablet 0.5 mg PO QID PRN Anxiety 11/01/22 03/20/24 History fluticasone propionate 50 1 spray intranasal DAILY PRN 11/01/22 03/20/24 History mcg/actuation nasal allergies spray,suspension furosemide 80 mg tablet 80 mg PO DAILY 11/01/22 03/20/24 History lamotrigine 150 mg tablet 150 mg PO Q12H 11/01/22 03/20/24 History levetiracetam 750 mg tablet 750 mg PO DAILY 11/01/22 03/20/24 History losartan 50 mg tablet 100 mg PO DAILY 11/01/22 03/20/24 History montelukast 10 mg tablet 10 mg PO HS 11/01/22 03/20/24 History ropinirole 0.5 mg tablet 1 mg PO QAM 11/01/22 03/20/24 History tizanidine 4 mg tablet 4 mg PO BID PRN Muscle Spasm 11/01/22 03/20/24 History albuterol sulfate 90 mcg/actuation 2 puff inhalation Q6H PRN 07/11/23 03/20/24 History aerosol inhaler Shortness Of Breath Or Wheezing amantadine HCl 100 mg capsule 100 mg PO WEEKLY 07/11/23 03/20/24 History anastrozole 1 mg tablet 1 mg PO DAILY 07/11/23 03/20/24 History carvedilol 6.25 mg tablet 6.25 mg PO Q12H 07/11/23 03/20/24 History cholecalciferol (vitamin D3) 125 5,000 unit PO DAILY 07/11/23 03/20/24 History mcg (5,000 unit) tablet docusate sodium 100 mg capsule 100 mg PO Q12H 07/11/23 03/20/24 History folic acid 1 mg tablet 1 mg PO DAILY 07/11/23 03/20/24 History insulin glargine U-300 conc 300 6 unit subcut DAILY 07/11/23 03/20/24 History unit/mL (3 mL) subcutaneous pen (Toujeo Max U-300 SoloStar) levothyroxine 50 mcg tablet 50 mcg PO DAILY 07/11/23 03/21/24 History oxycodone-acetaminophen 7.5 mg-325 1 tablet PO Q4H PRN Pain (Scale 07/11/23 03/20/24 History mg tablet Score 4-6) polyethylene glycol 3350 17 gram 17 g PO BID PRN Constipation 07/11/23 03/20/24 History oral powder packet (Miralax) sevelamer carbonate 800 mg tablet 2,400 mg PO TIDWM 07/11/23 03/20/24 History vortioxetine 20 mg tablet 20 mg PO DAILY 07/11/23 03/20/24 History (Trintellix) atorvastatin 20 mg tablet 20 mg PO HS 01/12/24 03/20/24 History ketoconazole 2 % topical cream 1 applic topical DAILY PRN groin 01/12/24 03/20/24 History rash naloxegol 25 mg tablet (Movantik) 25 mg PO DAILY 01/12/24 03/20/24 History nifedipine 90 mg tablet,extended 90 mg PO HS 03/20/24 03/20/24 History release ropinirole 0.5 mg tablet 1.5 mg PO HS 03/20/24 03/20/24 History pantoprazole 40 mg tablet,delayed 40 mg PO BID 03/21/24 03/21/24 History release Allergies Allergy/AdvReac Type Severity Reaction Status Date / Time adhesive tape Allergy Rash Verified 01/12/24 02:47 NSAIDS (Non-Steroidal Allergy Other Verified 01/12/24 02:47 Anti-Inflamma pickles AdvReac Swelling Uncoded 01/11/24 23:24 of Lip/Tongue/Throat Vital Signs Vital Signs - 24 hr 03/21/24 16:03 03/21/24 21:48 03/21/24 22:04 Temperature 98.3 F Pulse Rate 62 63 68 Respiratory Rate 18 Blood Pressure 151/58 H Pulse Oximetry 93 03/22/24 04:50 03/22/24 04:35 03/21/24 20:00 Temperature 97.0 F L Pulse Rate 57 L 62 64 Respiratory Rate 20 20 Blood Pressure 143/52 H Pulse Oximetry 97 03/22/24 00:00 03/22/24 04:00 03/22/24 08:03 Temperature Pulse Rate 69 67 66 Respiratory Rate Blood Pressure Pulse Oximetry 03/22/24 09:15 03/22/24 08:50 03/22/24 08:58 Temperature 98 F Pulse Rate 61 63 63 Respiratory Rate 19 Blood Pressure 197/75 H 193/72 H 188/63 H Pulse Oximetry 99 03/22/24 09:30 03/22/24 09:45 03/22/24 10:00 Temperature Pulse Rate 62 61 61 Respiratory Rate Blood Pressure 195/75 H 205/85 H 209/65 H Pulse Oximetry 03/22/24 10:15 03/22/24 10:30 03/22/24 10:45 Temperature Pulse Rate 61 61 60 Respiratory Rate Blood Pressure 206/68 H 202/66 H 206/65 H Pulse Oximetry 03/22/24 11:00 03/22/24 11:15 03/22/24 11:30 Temperature Pulse Rate 62 64 61 Respiratory Rate Blood Pressure 202/64 H 209/62 H 207/72 H Pulse Oximetry 03/22/24 11:45 03/22/24 12:00 03/22/24 12:15 Temperature Pulse Rate 60 59 L 61 Respiratory Rate Blood Pressure 189/89 H 194/74 H 201/72 H Pulse Oximetry 03/22/24 12:28 Temperature Pulse Rate 60 Respiratory Rate Blood Pressure 196/74 H Pulse Oximetry Exam Const: General: cooperative Resp: Effort & Inspection: normal respiratory effort and able to speak in complete sentences Auscultation: clear to auscultation bilaterally Cardio: Rate: regular rate Rhythm: regular rhythm GI: Inspection: normal to inspection GI Palp: No No hepatosplenomegaly present Auscultation: normal bowel sounds Rectal Exam: deferred Skin: General skin exam: normal color Psych: Appearance: grossly normal Mental Status: mental status grossly nor mal Results Labs 03/22/24 06:00 03/22/24 06:00 Labs: Short CBC 03/22/24 Range/Units 06:00 WBC 5.7 (4.5-10.0) K/mm3 Hgb 6.9 L* (12.0-15.0) g/dL Hct 23.2 L (37.0-47.0) % Plt Count 144 L (150-375) k/mm3 [facility] 03/22/24 06:00 Sodium 135 L Potassium 3.6 Chloride 97 L Carbon Dioxide 28 BUN 38 H Creatinine 5.80 H Glucose 116 H Calcium 7.8 L Cardiac Enzymes 03/22/24 Range/Units 06:00 Troponin I 0.062 H* (0.000-0.034) ng/mL Liver Function 03/22/24 Range/Units 06:00 Total Bilirubin 0.4 (0.2-1.3) mg/dL AST 16 (14-36) U/L ALT < 6 L (6-35) U/L Alkaline Phosphatase 182 H (38-126) U/L Albumin 3.3 L (3.5-5.1) g/dL
--- NOTE | 2024-03-22 15:42 | WPDGICN ---
Assessment and Plan Assessment and plan (1) Anemia in ESRD (end-stage renal disease): Code(s): N18.6 - End stage renal disease; D63.1 - Anemia in chronic kidney disease Status: Acute Plan The patient has unexplained recent drop in hemoglobin in the absence of obvious GI bleeding. Even though her anemia is essentially due to her underlying renal disease, we need to completely examine her GI tract. As a patient with chronic renal failure, she has a higher chance of having small-bowel angiodysplasia. Therefore, a video capsule endoscopy will be ordered for diagnostic purposes. Further measures to follow after the capsule endoscopy is done. In the meantime continue present measures. GI Consult Note Consult date/time: 03/22/24 15:42 Reason for consult: Severe anemia HPI: Yasmin Colbert is a 68 year old female with multiple medical problems, including chronic renal failure on dialysis, hypertension, heart disease and severe anemia. In December this year she was found to have a large gastric hyperplastic ulcerated polyp, which was resected via endoscopic mucosal resection at [facility]. On 02/20/2024 she had an episode of hematemesis, after which an EGD was performed finding a nonbleeding large ulcer in the resection site. A colonoscopy was performed which showed multiple diverticula, small polyps which were not resected and scars from previous recent polypectomies. She is currently admitted with a recent drop in hemoglobin, from 7.6 to 6.9 in the absence of overt GI bleeding. The patient denies abdominal pain, nausea or vomiting. Review of Systems Review of Systems: All systems reviewed & are unremarkable except as noted in HPI and below PMFSH Past Medical History Medical History Anxiety and depression Bipolar depression Breast cancer Constipation Coronary artery disease End stage renal disease On hemodialysis with peritoneal dialysis catheter in place Esophageal ulcer Gastric foveolar hyperplasia Gastric mass Benign hyperplastic foveolar mucosa partially obstructing pylorus found on EGD in October 2022. Repeat EGD two weeks later showed gastritis and NERD but no mass. She was treated with PPI. 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 Pozo. The dialysis catheter had been initially placed and May at [facility]. It was subsequently removed in mid October. S/P appendectomy (10/31/22) Dilated appendix, extensive adhesion lysis of adhesions around peritoneal dialysis catheter Status post cataract extraction of both eyes with insertion of intraocular lens Family History Family History Daughter Precancerous changes of the cervix Pancreatitis Daughter Colon cancer Precancerous changes of the cervix Unknown Diabetes mellitus Father Heart attack Sibling Pancreatitis Adry's disease Grandparent Heart attack Cerebrovascular accident Grandparent Cerebrovascular accident Social History Social History (Updated 03/20/24 @ 02:16 by Jada Vu) Social History: She lives with her of approximately 15 years. She has 4 children. She smoked about half a pack of cigarettes per day for about 14 years but quit smoking approximately 40 years ago. She denies any history of excessive alcohol use or illicit substance use Code status: Full code (however the patient states that she would not want to be on a ventilator long-term, she would not want a tracheostomy or a PEG tube) Healthcare power of pest control service sales agent: Smoking packs per day: 2.5 Smoking cigarettes per day: 50.0 Years smoked: 12 Smoking pack-years: 30.00 Smoking status: Former smoker Alcohol intake: never Substance use: never Do You Feel Safe in your Home?: Yes Lack of Transportation: No Lack of Food: Never True Current Housing: I Have Housing Concerned About Future Housing: No Difficulty Paying Gas/Electric Bills: No Difficulty Paying for Meds: No Currently Unemployed: No Education: Decline to Answer Difficulty w/ Childcare or Family Care: No Occupation/Education: other Spiritual care concerns: No Meds Home Medications and Allergies Home Medications Medication Instructions Recorded Confirmed Type allopurinol 100 mg tablet 100 mg PO DAILY 11/01/22 03/20/24 History alprazolam 0.5 mg tablet 0.5 mg PO QID PRN Anxiety 11/01/22 03/20/24 History fluticasone propionate 50 1 spray intranasal DAILY PRN 11/01/22 03/20/24 History mcg/actuation nasal allergies spray,suspension furosemide 80 mg tablet 80 mg PO DAILY 11/01/22 03/20/24 History lamotrigine 150 mg tablet 150 mg PO Q12H 11/01/22 03/20/24 History levetiracetam 750 mg tablet 750 mg PO DAILY 11/01/22 03/20/24 History losartan 50 mg tablet 100 mg PO DAILY 11/01/22 03/20/24 History montelukast 10 mg tablet 10 mg PO HS 11/01/22 03/20/24 History ropinirole 0.5 mg tablet 1 mg PO QAM 11/01/22 03/20/24 History tizanidine 4 mg tablet 4 mg PO BID PRN Muscle Spasm 11/01/22 03/20/24 History albuterol sulfate 90 mcg/actuation 2 puff inhalation Q6H PRN 07/11/23 03/20/24 History aerosol inhaler Shortness Of Breath Or Wheezing amantadine HCl 100 mg capsule 100 mg PO WEEKLY 07/11/23 03/20/24 History anastrozole 1 mg tablet 1 mg PO DAILY 07/11/23 03/20/24 History carvedilol 6.25 mg tablet 6.25 mg PO Q12H 07/11/23 03/20/24 History cholecalciferol (vitamin D3) 125 5,000 unit PO DAILY 07/11/23 03/20/24 History mcg (5,000 unit) tablet docusate sodium 100 mg capsule 100 mg PO Q12H 07/11/23 03/20/24 History folic acid 1 mg tablet 1 mg PO DAILY 07/11/23 03/20/24 History insulin glargine U-300 conc 300 6 unit subcut DAILY 07/11/23 03/20/24 History unit/mL (3 mL) subcutaneous pen (Toujeo Max U-300 SoloStar) levothyroxine 50 mcg tablet 50 mcg PO DAILY 07/11/23 03/21/24 History oxycodone-acetaminophen 7.5 mg-325 1 tablet PO Q4H PRN Pain (Scale 07/11/23 03/20/24 History mg tablet Score 4-6) polyethylene glycol 3350 17 gram 17 g PO BID PRN Constipation 07/11/23 03/20/24 History oral powder packet (Miralax) sevelamer carbonate 800 mg tablet 2,400 mg PO TIDWM 07/11/23 03/20/24 History vortioxetine 20 mg tablet 20 mg PO DAILY 07/11/23 03/20/24 History (Trintellix) atorvastatin 20 mg tablet 20 mg PO HS 01/12/24 03/20/24 History ketoconazole 2 % topical cream 1 applic topical DAILY PRN groin 01/12/24 03/20/24 History rash naloxegol 25 mg tablet (Movantik) 25 mg PO DAILY 01/12/24 03/20/24 History nifedipine 90 mg tablet,extended 90 mg PO HS 03/20/24 03/20/24 History release ropinirole 0.5 mg tablet 1.5 mg PO HS 03/20/24 03/20/24 History pantoprazole 40 mg tablet,delayed 40 mg PO BID 03/21/24 03/21/24 History release Allergies Allergy/AdvReac Type Severity Reaction Status Date / Time adhesive tape Allergy Rash Verified 01/12/24 02:47 NSAIDS (Non-Steroidal Allergy Other Verified 01/12/24 02:47 Anti-Inflamma pickles AdvReac Swelling Uncoded 01/11/24 23:24 of Lip/Tongue/Throat Vital Signs Vital Signs - 24 hr 03/21/24 16:03 03/21/24 21:48 03/21/24 22:04 Temperature 98.3 F Pulse Rate 62 63 68 Respiratory Rate 18 Blood Pressure 151/58 H Pulse Oximetry 93 03/22/24 04:50 03/22/24 04:35 03/21/24 20:00 Temperature 97.0 F L Pulse Rate 57 L 62 64 Respiratory Rate 20 20 Blood Pressure 143/52 H Pulse Oximetry 97 03/22/24 00:00 03/22/24 04:00 03/22/24 08:03 Temperature Pulse Rate 69 67 66 Respiratory Rate Blood Pressure Pulse Oximetry 03/22/24 09:15 03/22/24 08:50 03/22/24 08:58 Temperature 98 F Pulse Rate 61 63 63 Respiratory Rate 19 Blood Pressure 197/75 H 193/72 H 188/63 H Pulse Oximetry 99 03/22/24 09:30 03/22/24 09:45 03/22/24 10:00 Temperature Pulse Rate 62 61 61 Respiratory Rate Blood Pressure 195/75 H 205/85 H 209/65 H Pulse Oximetry 03/22/24 10:15 03/22/24 10:30 03/22/24 10:45 Temperature Pulse Rate 61 61 60 Respiratory Rate Blood Pressure 206/68 H 202/66 H 206/65 H Pulse Oximetry 03/22/24 11:00 03/22/24 11:15 03/22/24 11:30 Temperature Pulse Rate 62 64 61 Respiratory Rate Blood Pressure 202/64 H 209/62 H 207/72 H Pulse Oximetry 03/22/24 11:45 03/22/24 12:00 03/22/24 12:15 Temperature Pulse Rate 60 59 L 61 Respiratory Rate Blood Pressure 189/89 H 194/74 H 201/72 H Pulse Oximetry 03/22/24 12:28 03/22/24 14:00 03/22/24 12:35 Temperature 98.3 F 97.6 F Pulse Rate 60 64 64 Respiratory Rate 18 18 Blood Pressure 196/74 H 188/56 H 190/72 H Pulse Oximetry 99 97 Exam Const: General: cooperative Resp: Effort & Inspection: normal respiratory effort and able to speak in complete sentences Auscultation: clear to auscultation bilaterally Cardio: Rate: regular rate Rhythm: regular rhythm GI: Inspection: normal to inspection GI Palp: No No hepatosplenomegaly present Auscultation: normal bowel sounds Rectal Exam: deferred Skin: General skin exam: normal color Psych: Appearance: grossly normal Mental Status: mental status grossly normal Results Labs 03/22/24 06:00 03/22/24 06:00 Labs: Short CBC 03/22/24 Range/Units 06:00 WBC 5.7 (4.5-10.0) K/mm3 Hgb 6.9 L* (12.0-15.0) g/dL Hct 23.2 L (37.0-47.0) % Plt Count 144 L (150-375) k/mm3 BMP 03/22/24 06:00 Sodium 135 L Potassium 3.6 Chloride 97 L Carbon Dioxide 28 BUN 38 H Creatinine 5.80 H Glucose 116 H Calcium 7.8 L Cardiac Enzymes 03/22/24 Range/Units 06:00 Troponin I 0.062 H* (0.000-0.034) ng/mL Liver Function 03/22/24 Range/Units 06:00 Total Bilirubin 0.4 (0.2-1.3) mg/dL AST 16 (14-36) U/L ALT < 6 L (6-35) U/L Alkaline Phosphatase 182 H (38-126) U/L Albumin 3.3 L (3.5-5.1) g/dL
[2024-03-22] MEDS: hydrALAZINE HCL 20 MG/ML VIAL 10 MG IV PUSH (15:48)
[2024-03-22 16:37] LABS: Glucose Point of Care 140 mg/dl (65-105)
[2024-03-22 20:01] LABS: Glucose Point of Care 157 mg/dl (65-105)
[2024-03-22] MEDS: AMOXICILLIN/CLAVULANATE K 500-125 MG TAB 1 TABLET PO (20:21)
[2024-03-22] MEDS: ATORVASTATIN 20 MG TABLET PO (20:21)
[2024-03-22] MEDS: DOXYCYCLINE HYCLATE 100 MG TABLET PO (20:22)
[2024-03-22] MEDS: rOPINIRole HCL 0.5 MG TABLET 1.5 MG PO (20:23)
[2024-03-22] MEDS: lamoTRIgine 100 MG TABLET PO (20:23)
[2024-03-22] MEDS: MONTELUKAST SODIUM 10 MG TABLET PO (20:23)
[2024-03-22] MEDS: ALPRAZolam (*CRX) 0.5 MG TABLET PO (20:26)
--- NOTE | 2024-03-22 22:48 | PC.NURSE ---
Called Dr. Greer at approx 2044 and made her aware that pt's hemoglobin is 6.9 and is ordered to have a blood transfusion but her IV went bad. Noel SIMON tried to place a new IV with the ultrasound machine and was unable to so we do not currently have access. Dr. Greer said she is okay if the pt receives the blood transfusion tomorrow in dialysis vis her dialysis access.
[2024-03-23] VITALS (10 sets, daily range): BP systolic 172–176; BP diastolic 53–66; PULSE 58–72; RESP 20–22; TEMP 36.3–36.9; O2SAT 95–100
[2024-03-23] MEDS: oxyCODONE/ACETAMINOPHEN (*CRX) 5-325 MG TABLET 1 TABLET PO ×3 (00:22→20:28)
[2024-03-23] MEDS: ALPRAZolam (*CRX) 0.5 MG TABLET PO ×2 (04:53→23:40)
[2024-03-23] MEDS: LEVOTHYROXINE SODIUM 50 MCG TABLET PO (05:32)
[2024-03-23] MEDS: DOCUSATE SODIUM 100 MG CAPSULE PO ×2 (05:32→17:43)
[2024-03-23 06:09] LABS: Basophils Percent Auto 0.4 % (0.2-1.2); Eosinophils Absolute Auto 0.5 K/mm3 (0-0.3); Eosinophils Percent Auto 7.3 % (0-4.4); Hematocrit 25.6 % (37.0-47.0); Hemoglobin 7.6 g/dL (12.0-15.0); Immature Granulocyte Absolute 0.08 K/mm3 (0.00-0.031); Immature Granulocyte Percent A 1.1 % (0-0.5); Lymphocytes Percent Auto 8.5 % (18.3-44.2); Mean Corpuscular HGB Conc 29.7 g/dl (32-36); Mean Corpuscular Volume 97.7 fl (80-100); Mean Platelet Volume 9.6 fl (7.4-10.4); Monocytes Absolute Auto 0.6 K/mm3 (0.1-0.6); Monocytes Percent Auto 8.7 % (2.6-8.5); Neutrophils Absolute Auto 5.3 K/mm3 (1.3-6.7); Platelet Count Result 153 k/mm3 (150-375); Red Blood Count 2.62 M/mm3 (4.2-5.4); Red Cell Distribution Width 17.5 % (11.5-14.5); White Blood Count 7.1 K/mm3 (4.5-10.0)
[2024-03-23 06:30] LABS: Albumin Level 3.3 g/dL (3.5-5.1); Alkaline Phosphatase 207 U/L (38-126); Anion Gap 8 mmol/L (4-12); Aspartate Amino Transferase 13 U/L (14-36); Bilirubin,Total 0.4 mg/dL (0.2-1.3); Blood Urea Nitrogen 18 mg/dL (7-17); Calcium 8.3 mg/dL (8.4-10.2); Carbon Dioxide 25 mmol/L (22-30); Chloride 106 mmol/L (98-107); Estimated CRCL calculation 14 ml/min; Estimated Glomerular Filt Rate 13; Glucose 126 mg/dL (65-110); Magnesium 2.1 mg/dL (1.6-2.3); Potassium 3.8 mmol/L (3.4-5.0); Sodium 139 mmol/L (137-145)
[2024-03-23 07:10] LABS: Alanine Aminotransferase < 6 U/L (6-35)
[2024-03-23 07:26] LABS: Anisocytosis 1+; Hypochromasia 1+; Platelet Estimate Adequate (Adequate); Schistocytes None Seen
--- NOTE | 2024-03-23 08:22 | PDONCCN ---
HPI - Date of Consult Date/Time: 03/23/24 08:22 Requesting Physician: Maddy Greer MD Primary Care Provider: Soto Moreau, - Consult Narrative Reason for consult: Anemia of chronic kidney disease Narrative: Yasmin Colbert is a 68 year old female with history of end-stage renal disease diagnosed in 2017 on hemodialysis along with history of insulin-dependent diabetes, hypertension, depression and bipolar disorder came into the ER with worsening of shortness of breath along with productive cough, night sweats generalized malaise poor appetite and weight loss. She was diagnosed with right basilar pneumonia. Her hemoglobin dropped to 6.9 on March 22. Ferritin was elevated at 761. Vitamin B12 was 534 and iron was normal at 40. Patient received 1 unit of packed red blood cell. Patient also received I and Epogen. Patient also came in the history of stomach surgery done 2 weeks ago at [facility]. Denies any other complaints. Review of Systems - Review of Systems All systems reviewed & are unremarkable except as noted in HPI and bel - Neurologic Reports system reviewed and no additional complaints, except as documented PMFSH Medical History: Medical History (Last Reviewed 03/20/24 @ 02:16 by Jada Vu) Anxiety and depression Bipolar depression Breast cancer Constipation Coronary artery disease End stage renal disease On hemodialysis with peritoneal dialysis catheter in place Esophageal ulcer Gastric foveolar hyperplasia Gastric mass Benign hyperplastic foveolar mucosa partially obstructing pylorus found on EGD in October 2022. Repeat EGD two weeks later showed gastritis and NERD but no mass. She was treated with PPI. Gastric ulcer Gastroparesis History of esophageal ulcer Hypertension Iron deficiency anemia Neuropathy Obstructive sleep apnea Patient has a history of severe obstructive sleep apnea diagnosed in 2005 with recommended CPAP of 18 Paroxysmal A-fib Tardive dyskinesia Surgical History: Surgical History (Last Reviewed 03/20/24 @ 02:16 by Jada Vu) Granulomatous lymphadenitis Onset Date: ~2005 With lymph node resection from likely left neck H/O cardiac radiofrequency ablation H/O lumpectomy Right breast H/O rectocele repair Onset Date: ~1990 History of esophagogastroduodenoscopy (EGD) Onset Date: 09/2022 History of facial surgery Left orbit reconstruction due to trauma 1977 History of foot surgery Plantar fasciitis History of tubal ligation Hx of cholecystectomy Onset Date: ~1991 Peritoneal dialysis catheter in place Revised 10/31/[address] Pozo. The dialysis catheter had been initially placed and May at [facility]. It was subsequently removed in mid October. S/P appendectomy Onset Date: 10/31/22 Dilated appendix, extensive adhesion lysis of adhesions around peritoneal dialysis catheter Status post cataract extraction of both eyes with insertion of intraocular lens Family History: Family History (Last Reviewed 03/20/24 @ 02:15 by Jada Vu) Daughter Precancerous changes of the cervix Pancreatitis Daughter Colon cancer Precancerous changes of the cervix Unknown Diabetes mellitus Father Heart attack Sibling Pancreatitis Adry's disease Grandparent Heart attack Cerebrovascular accident Grandparent Cerebrovascular accident - Social History Social History: Social History (Last Updated 03/20/24 @ 02:16 by Jada Vu) Alcohol Use: Alcohol intake: never Substance Use: Substance use: never Others: Spiritual care concerns: No Oppucation/Education: Occupation/Education: other Smoking Status: Smoking status: Former smoker Smoking Pack-years: Smoking packs per day: 2.5 Smoking cigarettes per day: 50.0 Years smoked: 12 Smoking pack-years: 30.00 Social Determinants of Health: Do You Feel Safe in your Home?: Yes Has the Lack of Transportation Kept You From Medical Appointments or From Getting Medications?: No Within the Past 12 Months, Were You Worried Whether Your Food Would Run Out Before You Got Money to Buy More?: Never True What is Your Housing Situation Today?: I Have Housing Are You Worried That in the Next 2 Months, You May Not Have Your Own Housing to Live In?: No Do You Have Trouble Paying Your Heating Or Electricity Bill?: No Do You Have Trouble Paying For Medicines?: No Are You Currently Unemployed and Looking for Work?: No Highest Level of Education Completed: Decline to Answer Do You Have Trouble With Childcare or the Care of a Family Member?: No Exam - Vital Signs Vital Signs - 24 hr 03/22/24 09:15 03/22/24 08:50 03/22/24 08:58 Temperature 36.6 C Pulse Rate 61 63 63 Respiratory Rate 19 Blood Pressure 197/75 H 193/72 H 188/63 H Pulse Oximetry 99 03/22/24 09:30 03/22/24 09:45 03/22/24 10:00 Temperature Pulse Rate 62 61 61 Respiratory Rate Blood Pressure 195/75 H 205/85 H 209/65 H Pulse Oximetry 03/22/24 10:15 03/22/24 10:30 03/22/24 10:45 Temperature Pulse Rate 61 61 60 Respiratory Rate Blood Pressure 206/68 H 202/66 H 206/65 H Pulse Oximetry 03/22/24 11:00 03/22/24 11:15 03/22/24 11:30 Temperature Pulse Rate 62 64 61 Respiratory Rate Blood Pressure 202/64 H 209/62 H 207/72 H Pulse Oximetry 03/22/24 11:45 03/22/24 12:00 03/22/24 12:15 Temperature Pulse Rate 60 59 L 61 Respiratory Rate Blood Pressure 189/89 H 194/74 H 201/72 H Pulse Oximetry 03/22/24 12:28 03/22/24 14:00 03/22/24 12:35 Temperature 36.8 C 36.4 C Pulse Rate 60 64 64 Respiratory Rate 18 18 Blood Pressure 196/74 H 188/56 H 190/72 H Pulse Oximetry 99 97 03/22/24 12:00 03/22/24 16:00 03/22/24 18:42 Temperature Pulse Rate 59 L 65 69 Respiratory Rate Blood Pressure 166/57 H Pulse Oximetry 03/22/24 20:22 03/22/24 20:34 03/22/24 20:00 Temperature 37.0 C Pulse Rate 69 65 65 Respiratory Rate 18 Blood Pressure 172/51 H Pulse Oximetry 100 03/23/24 00:00 03/23/24 04:00 03/23/24 05:11 Temperature 36.3 C L Pulse Rate 64 63 63 Respiratory Rate 20 Blood Pressure 172/53 H Pulse Oximetry 96 - Exam HEENT: EOMI, PERRLA, mucous membranes moist and pink Neck: supple Lungs: clear to auscultation, normal air movement Heart: no murmurs, gallops, or rubs, regular rhythm, regular rate Abdomen: abdomen soft, non-distended, normal bowel sounds Extremities: normal pulses Integumentary: no abnormalities Neurological: normal speech Psychological: mental status NL, mood NL - Lab Results Laboratory Last Values WBC 7.1 K/mm3 (4.5-10.0) 03/23/24 05:31 RBC 2.62 M/mm3 (4.2-5.4) L 03/23/24 05:31 Hgb 7.6 g/dL (12.0-15.0) L 03/23/24 05:31 Hct 25.6 % (37.0-47.0) L 03/23/24 05:31 MCV 97.7 fl (80-100) 03/23/24 05:31 MCH 29.0 pg (26-34) 03/23/24 05:31 MCHC 29.7 g/dl (32-36) L 03/23/24 05:31 RDW 17.5 % (11.5-14.5) H 03/23/24 05:31 Plt Count 153 k/mm3 (150-375) 03/23/24 05:31 MPV 9.6 fl (7.4-10.4) 03/23/24 05:31 Immature Gran % (Auto) 1.1 % (0-0.5) H 03/23/24 05:31 Neut % (Auto) 74.0 % (45.5-73.1) H 03/23/24 05:31 Lymph % (Auto) 8.5 % (18.3-44.2) L 03/23/24 05:31 [place] % (Auto) 8.7 % (2.6-8.5) H 03/23/24 05:31 Eos % (Auto) 7.3 % (0-4.4) H 03/23/24 05:31 Baso % (Auto) 0.4 % (0.2-1.2) 03/23/24 05:31 Lymph # (Auto) 0.60 K/mm3 (0.9-3.2) L 03/23/24 05:31 [place] # (Auto) 0.6 K/mm3 (0.1-0.6) 03/23/24 05:31 Eos # (Auto) 0.5 K/mm3 (0-0.3) H 03/23/24 05:31 Baso # (Auto) 0.0 K/mm3 (0.0-0.1) 03/23/24 05:31 Abs Immat Gran (auto) 0.08 K/mm3 (0.00-0.031) H 03/23/24 05:31 Absolute Neuts (auto) 5.3 K/mm3 (1.3-6.7) 03/23/24 05:31 Absolute Nucleated RBC 0.000 K/mm3 (0.0-0.012) 03/23/24 05:31 Nucleated RBC % 0.0 % (0.0-0.2) 03/23/24 05:31 Platelet Estimate Adequate (Adequate) 03/23/24 05:31 % Immature Plt Fraction 2.4 % (0.9-11.2) 03/20/24 08:03 Polychromasia 1+ 03/22/24 06:00 Hypochromasia 1+ 03/23/24 05:31 Anisocytosis 1+ 03/23/24 05:31 Microcytosis 1+ (NORMAL) 03/21/24 06:14 Ovalocytes 1+ 03/20/24 08:03 Schistocytes None seen 03/23/24 05:31 Sodium 139 mmol/L (137-145) 03/23/24 05:31 Potassium 3.8 mmol/L (3.4-5.0) 03/23/24 05:31 Chloride 106 mmol/L (98-107) 03/23/24 05:31 Carbon Dioxide 25 mmol/L (22-30) 03/23/24 05:31 Anion Gap 8 mmol/L (4-12) 03/23/24 05:31 BUN 18 mg/dL (7-17) H D 03/23/24 05:31 Creatinine 3.60 mg/dL (0.7-1.0) H 03/23/24 05:31 Estim Creat Clear Calc 14 ml/min 03/23/24 05:31 Estimated GFR 13 (59-) L 03/23/24 05:31 Glucose 126 mg/dL (65-110) H 03/23/24 05:31 POC Capillary Glucose 157 mg/dl (65-105) H 03/22/24 19:55 Calcium 8.3 mg/dL (8.4-10.2) L 03/23/24 05:31 Magnesium 2.1 mg/dL (1.6-2.3) 03/23/24 05:31 Iron 40 ug/dL (37-170) 03/21/24 06:14 TIBC 179 ug/dL (261-462) L 03/21/24 06:14 % Saturation 22 % (20-50) 03/21/24 06:14 Ferritin 761.00 ng/mL (11.1-264) H 03/21/24 06:14 Total Bilirubin 0.4 mg/dL (0.2-1.3) 03/23/24 05:31 AST 13 U/L (14-36) L 03/23/24 05:31 ALT < 6 U/L (6-35) L 03/23/24 05:31 Alkaline Phosphatase 207 U/L (38-126) H 03/23/24 05:31 Troponin I 0.062 ng/mL (0.000-0.034) H* 03/22/24 06:00 NT-Pro-B Natriuret Pep > 14325 pg/mL (19.9-100) H 03/19/24 23:53 Total Protein 6.0 g/dL (6.3-8.2) L 03/23/24 05:31 Albumin 3.3 g/dL (3.5-5.1) L 03/23/24 05:31 Vitamin B12 534.0 pg/mL (239-931) 03/21/24 06:14 Folate 8.7 ng/mL (2.76->20) 03/21/24 06:14 Nasal MRSA (PCR) Not detected (NOT DETECTE) 03/20/24 02:54 C. difficile (PCR) Cancelled 03/21/24 05:22 Hep Bs Antigen Negative (Negative) 03/21/24 06:14 Hep Bs Antibody Positive 03/21/24 06:14 Blood Type O Positive 03/22/24 08:09 Antibody Screen Positive 03/22/24 08:09 Antibody Identification Anti-Evangeline 03/22/24 08:09 Antigen Identification Cherry Antigen - NEGATIVE 03/22/24 08:09 ANIVAL, IgG Interpret Positive 03/22/24 08:09 ANIVAL, Poly Interpret Not Performed 03/22/24 08:09 ANIVAL, Complement Interp Negative 03/22/24 08:09 Enhanced Crossmatch See Detail 03/22/24 08:09 Meds Home Medications Medication Instructions Recorded Confirmed Type allopurinol 100 mg tablet 100 mg PO DAILY 11/01/22 03/20/24 History alprazolam 0.5 mg tablet 0.5 mg PO QID PRN Anxiety 11/01/22 03/20/24 History fluticasone propionate 50 1 spray intranasal DAILY PRN 11/01/22 03/20/24 History mcg/actuation nasal allergies spray,suspension furosemide 80 mg tablet 80 mg PO DAILY 11/01/22 03/20/24 History lamotrigine 150 mg tablet 150 mg PO Q12H 11/01/22 03/20/24 History levetiracetam 750 mg tablet 750 mg PO DAILY 11/01/22 03/20/24 History losartan 50 mg tablet 100 mg PO DAILY 11/01/22 03/20/24 History montelukast 10 mg tablet 10 mg PO HS 11/01/22 03/20/24 History ropinirole 0.5 mg tablet 1 mg PO QAM 11/01/22 03/20/24 History tizanidine 4 mg tablet 4 mg PO BID PRN Muscle Spasm 11/01/22 03/20/24 History albuterol sulfate 90 mcg/actuation 2 puff inhalation Q6H PRN 07/11/23 03/20/24 History aerosol inhaler Shortness Of Breath Or Wheezing amantadine HCl 100 mg capsule 100 mg PO WEEKLY 07/11/23 03/20/24 History anastrozole 1 mg tablet 1 mg PO DAILY 07/11/23 03/20/24 History carvedilol 6.25 mg tablet 6.25 mg PO Q12H 07/11/23 03/20/24 History cholecalciferol (vitamin D3) 125 5,000 unit PO DAILY 07/11/23 03/20/24 History mcg (5,000 unit) tablet docusate sodium 100 mg capsule 100 mg PO Q12H 07/11/23 03/20/24 History folic acid 1 mg tablet 1 mg PO DAILY 07/11/23 03/20/24 History insulin glargine U-300 conc 300 6 unit subcut DAILY 07/11/23 03/20/24 History unit/mL (3 mL) subcutaneous pen (Toujeo Max U-300 SoloStar) levothyroxine 50 mcg tablet 50 mcg PO DAILY 07/11/23 03/21/24 History oxycodone-acetaminophen 7.5 mg-325 1 tablet PO Q4H PRN Pain (Scale 07/11/23 03/20/24 History mg tablet Score 4-6) polyethylene glycol 3350 17 gram 17 g PO BID PRN Constipation 07/11/23 03/20/24 History oral powder packet (Miralax) sevelamer carbonate 800 mg tablet 2,400 mg PO TIDWM 07/11/23 03/20/24 History vortioxetine 20 mg tablet 20 mg PO DAILY 07/11/23 03/20/24 History (Trintellix) atorvastatin 20 mg tablet 20 mg PO HS 01/12/24 03/20/24 History ketoconazole 2 % topical cream 1 applic topical DAILY PRN groin 01/12/24 03/20/24 History rash naloxegol 25 mg tablet (Movantik) 25 mg PO DAILY 01/12/24 03/20/24 History nifedipine 90 mg tablet,extended 90 mg PO HS 03/20/24 03/20/24 History release ropinirole 0.5 mg tablet 1.5 mg PO HS 03/20/24 03/20/24 History pantoprazole 40 mg tablet,delayed 40 mg PO BID 03/21/24 03/21/24 History release Allergies Allergy/AdvReac Type Severity Reaction Status Date / Time adhesive tape Allergy Rash Verified 01/12/24 02:47 NSAIDS (Non-Steroidal Allergy Other Verified 01/12/24 02:47 Anti-Inflamma pickles AdvReac Swelling Uncoded 01/11/24 23:24 of Lip/Tongue/Throat Results - Labs CBC & Chem 7: 03/23/24 05:31 03/23/24 05:31 Labs: Short CBC 03/23/24 Range/Units 05:31 WBC 7.1 (4.5-10.0) K/mm3 Hgb 7.6 L (12.0-15.0) g/dL Hct 25.6 L (37.0-47.0) % Plt Count 153 (150-375) k/mm3 [facility] 03/23/24 05:31 Sodium 139 Potassium 3.8 Chloride 106 Carbon Dioxide 25 BUN 18 H D Creatinine 3.60 H Glucose 126 H Calcium 8.3 L Liver Function 03/23/24 Range/Units 05:31 Total Bilirubin 0.4 (0.2-1.3) mg/dL AST 13 L (14-36) U/L ALT < 6 L (6-35) U/L Alkaline Phosphatase 207 H (38-126) U/L Albumin 3.3 L (3.5-5.1) g/dL Assessment and Plan - Additional Plan Anemia of chronic kidney disease. The lab iron infusion showed normal iron studies and elevated ferritin. B12 was also normal. He received 1 unit of packed red blood cell for hemoglobin of 6.9. She also received 2 rounds of iron infusion and Epogen. Hemoglobin now has improved to 7.6. She is getting hemodialysis 3 times a week and apparently received dialysis. We will contact the dialysis center to check Epogen dose. I do not see need for bone marrow biopsy testing. Will order soluble transferrin receptor and methylmalonic acid level today. I will also check LDH, Jase test and haptoglobin. She will follow-up with me in the office. I have answered all the questions to patient's satisfaction. Pneumonia. Patient is feeling better with the antibiotic treatment. End-stage renal disease. Patient is on hemodialysis.
[2024-03-23 09:10] LABS: Glucose Point of Care 145 mg/dl (65-105)
[2024-03-23] MEDS: oxyCODONE HCL (*CRX) 2.5 MG TAB IR PO (09:10)
[2024-03-23] MEDS: lamoTRIgine 50 MG TABLET PO ×2 (09:11→20:28)
[2024-03-23] MEDS: AMOXICILLIN/CLAVULANATE K 500-125 MG TAB 1 TABLET PO ×2 (09:11→20:28)
[2024-03-23] MEDS: levETIRAcetam 250 MG TABLET 750 MG PO (09:11)
[2024-03-23] MEDS: SEVELAMER CARBONATE 800 MG TABLET 2400 MG PO ×3 (09:11→17:43)
[2024-03-23] MEDS: rOPINIRole HCL 1 MG TABLET PO (09:11)
[2024-03-23] MEDS: carvediloL 6.25 MG TABLET PO ×2 (09:11→20:28)
[2024-03-23] MEDS: DOXYCYCLINE HYCLATE 100 MG TABLET PO ×2 (09:12→20:28)
[2024-03-23] MEDS: NIFEdipine 30 MG TAB.ER.24 90 MG PO (09:12)
[2024-03-23] MEDS: hydrALAZINE HCL 50 MG TABLET 100 MG PO ×3 (09:12→17:43)
[2024-03-23] MEDS: lamoTRIgine 100 MG TABLET PO ×2 (09:12→20:27)
[2024-03-23] MEDS: ANASTROZOLE (*CHEMO) 1 MG TABLET PO (09:12)
[2024-03-23] MEDS: cloNIDine HCL 0.05 MG TABLET PO (09:13)
[2024-03-23] MEDS: FOLIC ACID 1 MG TABLET PO (09:13)
[2024-03-23] MEDS: FUROSEMIDE 80 MG TABLET PO (09:13)
[2024-03-23] MEDS: LOSARTAN POTASSIUM 50 MG TABLET 100 MG PO (09:13)
[2024-03-23] MEDS: ASPIRIN 81 MG ENTERIC TABLET PO (09:13)
[2024-03-23] MEDS: allopurinoL 100 MG TABLET PO (09:13)
[2024-03-23] MEDS: PANTOPRAZOLE 40 MG TABLET PO (09:13)
[2024-03-23] MEDS: INSULIN GLARGINE (*BKC) 100 UNITS/ML 6 UNITS SUB-Q (09:21)
[2024-03-23 12:11] LABS: Glucose Point of Care 149 mg/dl (65-105)
--- NOTE | 2024-03-23 12:37 | P.PNIM_ITS ---
Progress Note: A&P Assessment and Plan (1) Pneumonia: Qualifiers: Laterality: unspecified laterality Lung location: unspecified part of lung Pneumonia type: due to unspecified organism Qualified Code(s): J18.9 - Pneumonia, unspecified organism Code(s): J18.9 - Pneumonia, unspecified organism Status: Acute (2) End stage renal disease: Code(s): N18.6 - End stage renal disease Status: Chronic (3) Generalized weakness: Code(s): R53.1 - Weakness Status: Acute (4) Paroxysmal A-fib: Code(s): I48.0 - Paroxysmal atrial fibrillation Status: Acute (5) Uncontrolled hypertension: Code(s): I10 - Essential (primary) hypertension Status: Acute (6) Anemia in ESRD (end-stage renal disease): Code(s): N18.6 - End stage renal disease; D63.1 - Anemia in chronic kidney disease Status: Acute (7) Neuropathy: Code(s): G62.9 - Polyneuropathy, unspecified Status: Acute Plan This is a 68-year-old female presents to the hospital with shortness of breath which has been worsening over the past few days. ED evaluation vitals were stable except hypertension blood pressure 1 to 116/76 she has been undergoing dialysis as previously scheduled. Is noted blood pressure has always been elevated. Laboratory evaluation was performed which showed normal WBC at 9 hemoglobin of 8 creatinine of 2.9 -x3 0.3. Received a dose of hydralazine for her blood pressure. EKG showed nonspecific ST-T changes. Elevated was mildly elevated at 0.045 subsequent level up trended to 0.129. BNP more than 30,000. Chest x-ray showed right basilar pneumonia. Along with findings of cardiomegaly cardiac decompensation and pulmonary edema. she is admitted for further treatment and evaluation. Right basal pneumonia: Ceftriaxone doxycycline ordered. Sputum culture reviewed. Antibiotics switched to oral Elevated troponin up trending 0.045-0.129. EKG with subtle ST depressions will repeat EKG. Does have history of GI bleed in the past. Consulted Cardiology. Added aspirin 81 mg daily. Hypertension uncontrolled on admission on hydralazine p.r.n. Procardia to 90 mg also on hydralazine 100 mg t.i.d. along with losartan 100 mg daily Coreg 6.25 twice daily. Add clonidine which will be uptitrated to 0.1 b.i.d. Chronic anemia: Hemoglobin around 7-8 and stable no signs of active bleeding. Anemia worsened down to 6.9 today. Transfuse 1 unit PRBC. However had antibody and did not receive. Repeat H&H this a.m. was adequate at 7.6. Hematology was consulted. End-stage renal disease on hemodialysis Friday Nephrology consult Noninvasive reflux disease/gastritis / esophagitis on PPI Gastric polyp previously evaluated by EGD on 01/13/2024 GI consulted. Plan for video capsule endoscopy Anxiety depression/bipolar disorder Breast cancer status post lumpectomy Coronary artery disease Gastroparesis Tardive dyskinesia KACIE History of peptic ulcer Neuropathy Paroxysmal atrial fibrillation used to be on anticoagulation but now held due to recurrent anemia and GI bleed DVT prophylaxis SCDs Code status full code Subjective Date/time seen: 03/23/24 12:37 Interval history: No overnight events. Feeling well. Working with therapy. Blood pressure trend reviewed. Underwent dialysis yesterday. Not much cough. Review of Systems Review of Systems: All systems reviewed & are unremarkable except as noted in HPI and below Exam Narrative: Constitutional: Well-appearing, no acute distress Head: Atraumatic, no deformities. Eyes: Pupils equal, round, and reactive to light. Neck: Supple, no tracheal deviation, no JVD. ENMT: Mucous membranes moist Cardiovascular: S1, S2 auscultated. No murmurs, rubs, or gallops. Respiratory: Lung sounds equal. No wheezes, rales, or rhonchi. Gastrointestinal: Abdomen was soft and non-tender. Non-distended. No rebound or guarding. Musculoskeletal: No edema cyanosis or clubbing Neurological: Strength 5/5 in extremities. Cranial nerves I-XII grossly intact. Distal sensation intact. Mental Status: Awake, alert and oriented x3. Follows commands Objective Data Vital Signs Vital Signs: Vital Signs - 24 hr 03/22/24 14:00 03/22/24 16:00 03/22/24 18:42 Temperature 98.3 F Pulse Rate 64 65 69 Respiratory Rate 18 Blood Pressure 188/56 H 166/57 H Pulse Oximetry 99 Oxygen Delivery 03/22/24 20:22 03/22/24 20:34 03/22/24 20:00 Temperature 98.6 F Pulse Rate 69 65 65 Respiratory Rate 18 Blood Pressure 172/51 H Pulse Oximetry 100 Oxygen Delivery 03/23/24 00:00 03/23/24 04:00 03/23/24 05:11 Temperature 97.3 F L Pulse Rate 64 63 63 Respiratory Rate 20 Blood Pressure 172/53 H Pulse Oximetry 96 Oxygen Delivery 03/23/24 09:11 03/23/24 09:10 03/23/24 12:00 Temperature Pulse Rate 72 59 L Respiratory Rate Blood Pressure Pulse Oximetry Oxygen Delivery Room Air 03/23/24 08:00 Temperature Pulse Rate 66 Respiratory Rate Blood Pressure Pulse Oximetry Oxygen Delivery Intake/Output Intake/Output: Intake & Output 03/20/24 03/21/24 03/22/24 03/23/24 23:59 23:59 23:59 23:59 Intake Total 770 1250 837 730 Output Total 0 4000 0 Balance 770 1250 -3163 730 Meds/Results Medications: Active Medications Generic Name Dose Route Start Last Admin Trade Name Freq PRN Reason Stop Dose Admin Acetaminophen 650 mg 03/20/24 09:25 03/20/24 09:36 Acetaminophen 325 Mg Tablet PO 650 mg Q6H PRN Administration Mild Pain (1-3) or Fever Albuterol 2 puff 03/20/24 06:22 03/22/24 04:35 Albuterol Sulfate (*Sp) Aerosol 1 Puff INHALATION 2 puff Q6H PRN Administration Shortness Of Breath Or Wheezing Allopurinol 100 mg 03/20/24 08:00 03/23/24 09:13 Allopurinol 100 Mg Tablet PO 100 mg DAILY@0800 [facility] Administration Alprazolam 0.5 mg 03/20/24 06:22 03/23/24 04:53 Alprazolam (*Crx) 0.5 Mg Tablet PO 0.5 mg QID PRN Administration Anxiety Amantadine HCl 100 mg 03/22/24 09:00 03/22/24 13:27 Amantadine Hcl 100 Mg Capsule PO 100 mg Mo@0900 [facility] Administration Amoxicillin/Clavulanate Potassium 1 tablet 03/22/24 21:00 03/23/24 09:11 Amoxicillin/Clavulanate K 500-125 Mg Tab PO 03/26/24 21:01 1 tablet Q12HR [facility] Administration Anastrozole 1 mg 03/20/24 09:00 03/23/24 09:12 Anastrozole (*Chemo) 1 Mg Tablet PO 1 mg DAILY [facility] Administration Aspirin 81 mg 03/20/24 11:00 03/23/24 09:13 Aspirin 81 Mg Enteric Tablet PO 81 mg QAM [facility] Administration Atorvastatin Calcium 20 mg 03/20/24 21:00 03/22/24 20:21 Atorvastatin 20 Mg Tablet PO 20 mg HS [facility] Administration Carvedilol 6.25 mg 03/20/24 09:00 03/23/24 09:11 Carvedilol 6.25 Mg Tablet PO 6.25 mg Q12HR [facility] Administration Clonidine HCl 0.05 mg 03/22/24 11:15 03/23/24 09:13 Clonidine Hcl 0.05 Mg Tablet PO 0.05 mg Q12HR [facility] Administration Docusate Sodium 100 mg 03/20/24 06:25 03/23/24 05:32 Docusate Sodium 100 Mg Capsule PO 100 mg Q12H [facility] Administration Doxycycline Hyclate 100 mg 03/22/24 21:00 03/23/24 09:12 Doxycycline Hyclate 100 Mg Tablet PO 03/24/24 21:01 100 mg Q12HR [facility] Administration Fluticasone Propionate 1 spray 03/20/24 06:22 Fluticasone Propionate 0.05% Na Spr 16 Gm Btl (*Bkc) NASAL DAILY PRN allergies Folic Acid 1 mg 03/20/24 09:00 03/23/24 09:13 Folic Acid 1 Mg Tablet PO 1 mg DAILY [facility] Administration Furosemide 80 mg 03/20/24 09:00 03/23/24 09:13 Furosemide 80 Mg Tablet PO 80 mg DAILY [facility] Administration Hydralazine HCl 100 mg 03/20/24 08:00 03/23/24 09:12 Hydralazine Hcl 50 Mg Tablet PO 100 mg TIDWM [facility] Administration Hydralazine HCl 10 mg 03/20/24 15:22 03/22/24 15:48 Hydralazine Hcl 20 Mg/Ml Vial IV PUSH 10 mg Q6HR PRN Administration Blood Pressure - High Albumin Human 50 mls @ 999 mls/hr 03/22/24 07:10 Albutein IVPB 04/21/24 07:09 Q10M PRN HYPOTENSION Insulin Glargine 6 units 03/20/24 09:00 03/23/24 09:21 Insulin Glargine (*Bkc) 100 Units/Ml SUB-Q 6 units DAILY [facility] Administration Lamotrigine 100 mg 03/20/24 09:00 03/23/24 09:12 Lamotrigine 100 Mg Tablet PO 100 mg Q12HR [facility] Administration Lamotrigine 50 mg 03/20/24 09:00 03/23/24 09:11 Lamotrigine 50 Mg Tablet PO 50 mg Q12HR [facility] Administration Levetiracetam 750 mg 03/20/24 09:00 03/23/24 09:11 Levetiracetam 250 Mg Tablet PO 750 mg DAILY [facility] Administration Levothyroxine Sodium 50 mcg 03/20/24 06:50 03/23/24 05:32 Levothyroxine Sodium 50 Mcg Tablet PO 50 mcg DAILY@0630 [facility] Administration Losartan Potassium 100 mg 03/20/24 09:00 03/23/24 09:13 Losartan Potassium 50 Mg Tablet PO 100 mg DAILY [facility] Administration Miscellaneous Information 0 each 03/20/24 07:00 03/21/24 00:18 Naloxegol [Movantik] 25 Mg Tablet- Nonformulary. Please Obtain A Home Supply If Possible. XX 04/19/24 06:59 Not Given CLARIFY [facility] Miscellaneous Information 0 each 03/20/24 07:05 03/21/24 00:18 Vortioxetine- Nonformulary. Please Obtain A Home Supply If Possible. XX 04/19/24 07:04 Not Given CLARIFY [facility] Montelukast Sodium 10 mg 03/20/24 21:00 03/22/24 20:23 Montelukast Sodium 10 Mg Tablet PO 10 mg HS [facility] Administration Nifedipine 90 mg 03/21/24 09:00 03/23/24 09:12 Nifedipine 30 Mg Tab.Er.24 PO 90 mg DAILY [facility] Administration Nitroglycerin 0.4 mg 03/20/24 10:10 03/20/24 10:37 Nitroglycerin Sl 0.4 Mg Tablet SUBLINGUAL 0.4 mg Q5MIN PRN Administration Chest Pain Non-Formulary Medication 25 mg 03/20/24 09:00 Naloxegol [Movantik] PO 04/19/24 08:59 DAILY [facility] Non-Formulary Medication 20 mg 03/20/24 09:00 Vortioxetine [Trintellix] PO 04/19/24 08:59 DAILY [facility] Oxycodone HCl 2.5 mg 03/20/24 06:49 03/23/24 09:10 Oxycodone Hcl (*Crx) 2.5 Mg Tab Ir PO 2.5 mg Q4H PRN Administration Pain (Scale Score 4-6) Oxycodone/Acetaminophen 1 tablet 03/20/24 06:48 03/23/24 09:07 Oxycodone/Acetaminophen (*Crx) 5-325 Mg Tablet PO 1 tablet Q4H PRN Administration Pain (Scale Score 4-6) Pantoprazole Sodium 40 mg 03/20/24 09:00 03/23/24 09:13 Pantoprazole 40 Mg Tablet PO 40 mg QAM [facility] Administration Polyethylene Glycol 17 gm 03/20/24 06:22 Polyethylene Glycol 3350 17 Gm Powd.Pack PO BID PRN Constipation Ropinirole HCl 1 mg 03/20/24 09:00 03/23/24 09:11 Ropinirole Hcl 1 Mg Tablet PO 1 mg QAM [facility] Administration Ropinirole HCl 1.5 mg 03/20/24 21:00 03/22/24 20:23 Ropinirole Hcl 0.5 Mg Tablet PO 1.5 mg HS [facility] Administration Sevelamer Carbonate 2,400 mg 03/20/24 08:00 03/23/24 09:11 Sevelamer Carbonate 800 Mg Tablet PO 2,400 mg TIDWM [facility] Administration Tizanidine HCl 4 mg 03/20/24 06:22 Tizanidine Hcl 4 Mg Tablet PO BID PRN Muscle Spasm Radiology Results: ITS Impressions Chest X-Ray 03/19/24 23:24 IMPRESSION: Cardiomegaly with cardiac decompensation and pulmonary edema. Right basal pneumonia. Labs Labs: Laboratory Results - last 24 hr 03/21/24 03/22/24 03/22/24 05:22 08:09 13:09 WBC RBC Hgb Hct MCV MCH MCHC RDW Plt Count MPV Immature Gran % (Auto) Neut % (Auto) Lymph % (Auto) [place] % (Auto) Eos % (Auto) Baso % (Auto) Lymph # (Auto) [place] # (Auto) Eos # (Auto) Baso # (Auto) Abs Immat Gran (auto) Absolute Neuts (auto) Absolute Nucleated RBC Nucleated RBC % Platelet Estimate Hypochromasia Anisocytosis Schistocytes Sodium Potassium Chloride Carbon Dioxide Anion Gap BUN Creatinine Estim Creat Clear Calc Estimated GFR Glucose POC Capillary Glucose 103 Calcium Magnesium Total Bilirubin AST ALT Alkaline Phosphatase Total Protein Albumin C. difficile (PCR) Cancelled Blood Type O Positive Antibody Screen Positive Antibody Identification Anti-Dittmer Antigen Identification Cherry Antigen - NEGATIVE ANIVAL, IgG Interpret Positive ANIVAL, Complement Interp Negative Enhanced Crossmatch See Detail 03/22/24 03/22/24 03/23/24 16:22 19:55 05:31 WBC 7.1 RBC 2.62 L Hgb 7.6 L Hct 25.6 L MCV 97.7 MCH 29.0 MCHC 29.7 L RDW 17.5 H Plt Count 153 MPV 9.6 Immature Gran % (Auto) 1.1 H Neut % (Auto) 74.0 H Lymph % (Auto) 8.5 L [place] % (Auto) 8.7 H Eos % (Auto) 7.3 H Baso % (Auto) 0.4 Lymph # (Auto) 0.60 L [place] # (Auto) 0.6 Eos # (Auto) 0.5 H Baso # (Auto) 0.0 Abs Immat Gran (auto) 0.08 H Absolute Neuts (auto) 5.3 Absolute Nucleated RBC 0.000 Nucleated RBC % 0.0 Platelet Estimate Adequate Hypochromasia 1+ Anisocytosis 1+ Schistocytes None seen Sodium 139 Potassium 3.8 Chloride 106 Carbon Dioxide 25 Anion Gap 8 BUN 18 H D Creatinine 3.60 H Estim Creat Clear Calc 14 Estimated GFR 13 L Glucose 126 H POC Capillary Glucose 140 H 157 H Calcium 8.3 L Magnesium 2.1 Total Bilirubin 0.4 AST 13 L ALT < 6 L Alkaline Phosphatase 207 H Total Protein 6.0 L Albumin 3.3 L C. difficile (PCR) Blood Type Antibody Screen Antibody Identification Antigen Identification ANIVAL, IgG Interpret ANIVAL, Complement Interp Enhanced Crossmatch 03/23/24 03/23/24 09:06 11:39 WBC RBC Hgb Hct MCV MCH MCHC RDW Plt Count MPV Immature Gran % (Auto) Neut % (Auto) Lymph % (Auto) [place] % (Auto) Eos % (Auto) Baso % (Auto) Lymph # (Auto) [place] # (Auto) Eos # (Auto) Baso # (Auto) Abs Immat Gran (auto) Absolute Neuts (auto) Absolute Nucleated RBC Nucleated RBC % Platelet Estimate Hypochromasia Anisocytosis Schistocytes Sodium Potassium Chloride Carbon Dioxide Anion Gap BUN Creatinine Estim Creat Clear Calc Estimated GFR Glucose POC Capillary Glucose 145 H 149 H Calcium Magnesium Total Bilirubin AST ALT Alkaline Phosphatase Total Protein Albumin C. difficile (PCR) Blood Type Antibody Screen Antibody Identification Antigen Identification ANIVAL, IgG Interpret ANIVAL, Complement Interp Enhanced Crossmatch
[2024-03-23 12:56] LABS: Lactate Dehydrogenase 189 U/L (120-246)
--- NOTE | 2024-03-23 13:11 | P.PNNP_ITS ---
Progress Note: A&P Assessment and Plan (1) End stage renal disease: Code(s): N18.6 - End stage renal disease Status: Chronic Assessment and Plan: * HD tomorrow * continue outpatient dialysis schedule of // * follow electrolytes, volume status, and clearance (2) Pneumonia: Qualifiers: Laterality: unspecified laterality Lung location: unspecified part of lung Pneumonia type: due to unspecified organism Qualified Code(s): J18.9 - Pneumonia, unspecified organism Code(s): J18.9 - Pneumonia, unspecified organism Status: Acute Assessment and Plan: * as suggested by admission imaging * follow respiratory status (stable at this time) * follow culture data - negative to date * on antibiotics * continue supportive therapy (3) Hypertension: Qualifiers: Hypertension type: secondary to other renal disorders Qualified Code(s): I15.1 - Hypertension secondary to other renal disorders; N28.89 - Other specified disorders of kidney and ureter Code(s): I10 - Essential (primary) hypertension Status: Acute Assessment and Plan: * elevated on presentation * seems to fluctuate to extremes * being more aggressive with ultrafiltration with HD to see if that helps * resumed home medications * follow trend of hemodynamics (4) Anemia: Qualifiers: Anemia type: due to chronic kidney disease Chronic kidney disease stage: on chronic dialysis Qualified Code(s): N18.6 - End stage renal disease; D63.1 - Anemia in chronic kidney disease; Z99.2 - Dependence on renal dialysis Code(s): D64.9 - Anemia, unspecified Status: Acute Assessment and Plan: * partly related to ESRD * however, recurrent issues with anemia requiring PRBC transfusion on previous hospitalization * 4 units transfused during January 2024 hospitalization * prior GI work-up noted * Epogen/Retacrit with HD * GI and Hem/Onc recommendations noted * follow trend on H/H (5) Paroxysmal A-fib: Code(s): I48.0 - Paroxysmal atrial fibrillation Status: Acute Assessment and Plan: * stable at this time * no anticoagulation due to recurrent/chronic anemia (6) Generalized weakness: Code(s): R53.1 - Weakness Status: Acute Assessment and Plan: * as noted on admission * possibly partly related to anemia and recent operative procedure (left arm AV access placement) * PT/OT as tolerated Will continue to follow. Subjective Date/time seen: 03/23/24 11:50 Interval history: Follow-up for end stage renal disease on hemodialysis. Tolerated dialysis treatment yesterday without any issues or problems; reports feeling better today in general; seen by GI and Hem/Onc regarding her anemia; did not get PRBC transfusion yesterday due to the presence of multiple antibodies making a match difficult. Exam Narrative: General: elderly but WD/WN female in NAD Heart: normal S1 and S2; no rub Lungs: clear anteriorly; decreased at bases Abdomen: soft, nontender, nondistended, positive bowel sounds Extremities: no cyanosis or clubbing; no edema Skin: no rash Objective Data Vital Signs Vital Signs: Vital Signs Temp Pulse Resp BP Pulse Ox O2 Del Method 03/23/24 12:00 59 L 03/23/24 09:10 Room Air 03/23/24 09:11 72 03/23/24 05:11 97.3 F L 63 20 172/53 H 96 03/23/24 04:00 63 03/23/24 00:00 64 03/22/24 20:00 65 03/22/24 20:34 98.6 F 65 18 172/51 H 100 03/22/24 20:22 69 03/22/24 18:42 69 166/57 H 03/22/24 16:00 65 03/22/24 14:00 98.3 F 64 18 188/56 H 99 Intake/Output Intake/Output: Intake & Output 03/20/24 03/21/24 03/22/24 03/23/24 23:59 23:59 23:59 23:59 Intake Total 770 1250 837 970 Output Total 0 4000 0 Balance 770 1250 -3163 970 Meds/Results Medications: Active Medications Generic Name Dose Route Start Last Admin Trade Name Freq PRN Reason Stop Dose Admin Acetaminophen 650 mg 03/20/24 09:25 03/20/24 09:36 Acetaminophen 325 Mg Tablet PO 650 mg Q6H PRN Administration Mild Pain (1-3) or Fever Albuterol 2 puff 03/20/24 06:22 03/22/24 04:35 Albuterol Sulfate (*Sp) Aerosol 1 Puff INHALATION 2 puff Q6H PRN Administration Shortness Of Breath Or Wheezing Allopurinol 100 mg 03/20/24 08:00 03/23/24 09:13 Allopurinol 100 Mg Tablet PO 100 mg DAILY@0800 [facility] Administration Alprazolam 0.5 mg 03/20/24 06:22 03/23/24 04:53 Alprazolam (*Crx) 0.5 Mg Tablet PO 0.5 mg QID PRN Administration Anxiety Amantadine HCl 100 mg 03/22/24 09:00 03/22/24 13:27 Amantadine Hcl 100 Mg Capsule PO 100 mg Mo@0900 [facility] Administration Amoxicillin/Clavulanate Potassium 1 tablet 03/22/24 21:00 03/23/24 09:11 Amoxicillin/Clavulanate K 500-125 Mg Tab PO 03/26/24 21:01 1 tablet Q12HR [facility] Administration Anastrozole 1 mg 03/20/24 09:00 03/23/24 09:12 Anastrozole (*Chemo) 1 Mg Tablet PO 1 mg DAILY [facility] Administration Aspirin 81 mg 03/20/24 11:00 03/23/24 09:13 Aspirin 81 Mg Enteric Tablet PO 81 mg QAM [facility] Administration Atorvastatin Calcium 20 mg 03/20/24 21:00 03/22/24 20:21 Atorvastatin 20 Mg Tablet PO 20 mg HS [facility] Administration Carvedilol 6.25 mg 03/20/24 09:00 03/23/24 09:11 Carvedilol 6.25 Mg Tablet PO 6.25 mg Q12HR [facility] Administration Clonidine HCl 0.1 mg 03/23/24 21:00 Clonidine Hcl 0.1 Mg Tablet PO Q12HR [facility] Docusate Sodium 100 mg 03/20/24 06:25 03/23/24 05:32 Docusate Sodium 100 Mg Capsule PO 100 mg Q12H [facility] Administration Doxycycline Hyclate 100 mg 03/22/24 21:00 03/23/24 09:12 Doxycycline Hyclate 100 Mg Tablet PO 03/24/24 21:01 100 mg Q12HR [facility] Administration Fluticasone Propionate 1 spray 03/20/24 06:22 Fluticasone Propionate 0.05% Na Spr 16 Gm Btl (*Bkc) NASAL DAILY PRN allergies Folic Acid 1 mg 03/20/24 09:00 03/23/24 09:13 Folic Acid 1 Mg Tablet PO 1 mg DAILY [facility] Administration Furosemide 80 mg 03/20/24 09:00 03/23/24 09:13 Furosemide 80 Mg Tablet PO 80 mg DAILY [facility] Administration Hydralazine HCl 100 mg 03/20/24 08:00 03/23/24 12:58 Hydralazine Hcl 50 Mg Tablet PO 100 mg TIDWM [facility] Administration Hydralazine HCl 10 mg 03/20/24 15:22 03/22/24 15:48 Hydralazine Hcl 20 Mg/Ml Vial IV PUSH 10 mg Q6HR PRN Administration Blood Pressure - High Albumin Human 50 mls @ 999 mls/hr 03/22/24 07:10 Albutein IVPB 04/21/24 07:09 Q10M PRN HYPOTENSION Insulin Glargine 6 units 03/20/24 09:00 03/23/24 09:21 Insulin Glargine (*Bkc) 100 Units/Ml SUB-Q 6 units DAILY [facility] Administration Lamotrigine 100 mg 03/20/24 09:00 03/23/24 09:12 Lamotrigine 100 Mg Tablet PO 100 mg Q12HR [facility] Administration Lamotrigine 50 mg 03/20/24 09:00 03/23/24 09:11 Lamotrigine 50 Mg Tablet PO 50 mg Q12HR [facility] Administration Levetiracetam 750 mg 03/20/24 09:00 03/23/24 09:11 Levetiracetam 250 Mg Tablet PO 750 mg DAILY [facility] Administration Levothyroxine Sodium 50 mcg 03/20/24 06:50 03/23/24 05:32 Levothyroxine Sodium 50 Mcg Tablet PO 50 mcg DAILY@0630 [facility] Administration Losartan Potassium 100 mg 03/20/24 09:00 03/23/24 09:13 Losartan Potassium 50 Mg Tablet PO 100 mg DAILY [facility] Administration Miscellaneous Information 0 each 03/20/24 07:00 03/21/24 00:18 Naloxegol [Movantik] 25 Mg Tablet- Nonformulary. Please Obtain A Home Supply If Possible. XX 04/19/24 06:59 Not Given CLARIFY [facility] Miscellaneous Information 0 each 03/20/24 07:05 03/21/24 00:18 Vortioxetine- Nonformulary. Please Obtain A Home Supply If Possible. XX 04/19/24 07:04 Not Given CLARIFY [facility] Montelukast Sodium 10 mg 03/20/24 21:00 03/22/24 20:23 Montelukast Sodium 10 Mg Tablet PO 10 mg HS [facility] Administration Nifedipine 90 mg 03/21/24 09:00 03/23/24 09:12 Nifedipine 30 Mg Tab.Er.24 PO 90 mg DAILY [facility] Administration Nitroglycerin 0.4 mg 03/20/24 10:10 03/20/24 10:37 Nitroglycerin Sl 0.4 Mg Tablet SUBLINGUAL 0.4 mg Q5MIN PRN Administration Chest Pain Non-Formulary Medication 25 mg 03/20/24 09:00 Naloxegol [Movantik] PO 04/19/24 08:59 DAILY [facility] Non-Formulary Medication 20 mg 03/20/24 09:00 Vortioxetine [Trintellix] PO 04/19/24 08:59 DAILY [facility] Oxycodone HCl 2.5 mg 03/20/24 06:49 03/23/24 09:10 Oxycodone Hcl (*Crx) 2.5 Mg Tab Ir PO 2.5 mg Q4H PRN Administration Pain (Scale Score 4-6) Oxycodone/Acetaminophen 1 tablet 03/20/24 06:48 03/23/24 09:07 Oxycodone/Acetaminophen (*Crx) 5-325 Mg Tablet PO 1 tablet Q4H PRN Administration Pain (Scale Score 4-6) Pantoprazole Sodium 40 mg 03/20/24 09:00 03/23/24 09:13 Pantoprazole 40 Mg Tablet PO 40 mg QAM [facility] Administration Polyethylene Glycol 17 gm 03/20/24 06:22 Polyethylene Glycol 3350 17 Gm Powd.Pack PO BID PRN Constipation Ropinirole HCl 1 mg 03/20/24 09:00 03/23/24 09:11 Ropinirole Hcl 1 Mg Tablet PO 1 mg QAM [facility] Administration Ropinirole HCl 1.5 mg 03/20/24 21:00 03/22/24 20:23 Ropinirole Hcl 0.5 Mg Tablet PO 1.5 mg HS [facility] Administration Sevelamer Carbonate 2,400 mg 03/20/24 08:00 03/23/24 12:58 Sevelamer Carbonate 800 Mg Tablet PO 2,400 mg TIDWM [facility] Administration Tizanidine HCl 4 mg 03/20/24 06:22 Tizanidine Hcl 4 Mg Tablet PO BID PRN Muscle Spasm Radiology Results: ITS Impressions Chest X-Ray 03/19/24 23:24 IMPRESSION: Cardiomegaly with cardiac decompensation and pulmonary edema. Right basal pneumonia. Labs Labs: Laboratory Tests 03/23/24 05:31 03/23/24 05:31 Calcium 8.3 L Magnesium 2.1 Total Bilirubin 0.4 AST 13 L ALT < 6 L Alkaline Phosphatase 207 H Total Protein 6.0 L Albumin 3.3 L Microbiology 03/21/24 22:42 Sputum Sputum Culture - Final
--- NOTE | 2024-03-23 14:28 | WPDGIPROGNO ---
Progress Note: A&P Assessment and Plan (1) Iron deficiency anemia: Qualifiers: Iron deficiency anemia type: chronic blood loss Qualified Code(s): D50.0 - Iron deficiency anemia secondary to blood loss (chronic) Code(s): D50.9 - Iron deficiency anemia, unspecified Status: Acute Assessment and Plan: Patient with severe anemia, with no explanation based on endoscopy findings to justify severity. As per yesterday's evaluation, we obtained the records from [facility] and there was a healing ulcer from a previous polyp resection. anemia is most likely multifactorial, end-stage renal disease being a major factor. However, for completeness we ordered a video capsule endoscopy to assess small bowel bleeding sources such as angiodysplasia, and this is currently being arranged. (2) Anemia: Qualifiers: Anemia type: due to chronic kidney disease Chronic kidney disease stage: on chronic dialysis Qualified Code(s): N18.6 - End stage renal disease; D63.1 - Anemia in chronic kidney disease; Z99.2 - Dependence on renal dialysis Code(s): D64.9 - Anemia, unspecified Status: Acute (3) End stage renal disease: Code(s): N18.6 - End stage renal disease Status: Chronic Subjective Date/time seen: 03/23/24 14:28 Interval history: No major change in status from yesterday. Currently under Nephrology evaluation. Objective Data Vital Signs Vital Signs: Vital Signs - 24 hr 03/22/24 16:00 03/22/24 18:42 03/22/24 20:22 Temperature Pulse Rate 65 69 69 Respiratory Rate Blood Pressure 166/57 H Pulse Oximetry Oxygen Delivery 03/22/24 20:34 03/22/24 20:00 03/23/24 00:00 Temperature 98.6 F Pulse Rate 65 65 64 Respiratory Rate 18 Blood Pressure 172/51 H Pulse Oximetry 100 Oxygen Delivery 03/23/24 04:00 03/23/24 05:11 03/23/24 09:11 Temperature 97.3 F L Pulse Rate 63 63 72 Respiratory Rate 20 Blood Pressure 172/53 H Pulse Oximetry 96 Oxygen Delivery 03/23/24 09:10 03/23/24 12:00 03/23/24 08:00 Temperature Pulse Rate 59 L 66 Respiratory Rate Blood Pressure Pulse Oximetry Oxygen Delivery Room Air Intake/Output Intake/Output: Intake & Output 03/20/24 03/21/24 03/22/24 03/23/24 23:59 23:59 23:59 23:59 Intake Total 770 1250 837 970 Output Total 0 4000 0 Balance 770 1250 -3163 970 Meds/Results Medications: Active Medications Generic Name Dose Route Start Last Admin Trade Name Freq PRN Reason Stop Dose Admin Acetaminophen 650 mg 03/20/24 09:25 03/20/24 09:36 Acetaminophen 325 Mg Tablet PO 650 mg Q6H PRN Administration Mild Pain (1-3) or Fever Albuterol 2 puff 03/20/24 06:22 03/22/24 04:35 Albuterol Sulfate (*Sp) Aerosol 1 Puff INHALATION 2 puff Q6H PRN Administration Shortness Of Breath Or Wheezing Allopurinol 100 mg 03/20/24 08:00 03/23/24 09:13 Allopurinol 100 Mg Tablet PO 100 mg DAILY@0800 PHYLICIA Administration Alprazolam 0.5 mg 03/20/24 06:22 03/23/24 04:53 Alprazolam (*Crx) 0.5 Mg Tablet PO 0.5 mg QID PRN Administration Anxiety Amantadine HCl 100 mg 03/22/24 09:00 03/22/24 13:27 Amantadine Hcl 100 Mg Capsule PO 100 mg Mo@0900 PHYLICIA Administration Amoxicillin/Clavulanate Potassium 1 tablet 03/22/24 21:00 03/23/24 09:11 Amoxicillin/Clavulanate K 500-125 Mg Tab PO 03/26/24 21:01 1 tablet Q12HR PHYLICIA Administration Anastrozole 1 mg 03/20/24 09:00 03/23/24 09:12 Anastrozole (*Chemo) 1 Mg Tablet PO 1 mg DAILY PHYLICIA Administration Aspirin 81 mg 03/20/24 11:00 03/23/24 09:13 Aspirin 81 Mg Enteric Tablet PO 81 mg QAM PHYLICIA Administration Atorvastatin Calcium 20 mg 03/20/24 21:00 03/22/24 20:21 Atorvastatin 20 Mg Tablet PO 20 mg HS PHYLICIA Administration Carvedilol 6.25 mg 03/20/24 09:00 03/23/24 09:11 Carvedilol 6.25 Mg Tablet PO 6.25 mg Q12HR PHYLICIA Administration Clonidine HCl 0.1 mg 03/23/24 21:00 Clonidine Hcl 0.1 Mg Tablet PO Q12HR PHYLICIA Docusate Sodium 100 mg 03/20/24 06:25 03/23/24 05:32 Docusate Sodium 100 Mg Capsule PO 100 mg Q12H PHYLICIA Administration Doxycycline Hyclate 100 mg 03/22/24 21:00 03/23/24 09:12 Doxycycline Hyclate 100 Mg Tablet PO 03/24/24 21:01 100 mg Q12HR PHYLICIA Administration Fluticasone Propionate 1 spray 03/20/24 06:22 Fluticasone Propionate 0.05% Na Spr 16 Gm Btl (*Bkc) NASAL DAILY PRN allergies Folic Acid 1 mg 03/20/24 09:00 03/23/24 09:13 Folic Acid 1 Mg Tablet PO 1 mg DAILY PHYLICIA Administration Furosemide 80 mg 03/20/24 09:00 03/23/24 09:13 Furosemide 80 Mg Tablet PO 80 mg DAILY PHYLICIA Administration Hydralazine HCl 100 mg 03/20/24 08:00 03/23/24 12:58 Hydralazine Hcl 50 Mg Tablet PO 100 mg TIDWM PHYLICIA Administration Hydralazine HCl 10 mg 03/20/24 15:22 03/22/24 15:48 Hydralazine Hcl 20 Mg/Ml Vial IV PUSH 10 mg Q6HR PRN Administration Blood Pressure - High Albumin Human 50 mls @ 999 mls/hr 03/22/24 07:10 Albutein IVPB 04/21/24 07:09 Q10M PRN HYPOTENSION Insulin Glargine 6 units 03/20/24 09:00 03/23/24 09:21 Insulin Glargine (*Bkc) 100 Units/Ml SUB-Q 6 units DAILY PHYLICIA Administration Lamotrigine 100 mg 03/20/24 09:00 03/23/24 09:12 Lamotrigine 100 Mg Tablet PO 100 mg Q12HR PHYLICIA Administration Lamotrigine 50 mg 03/20/24 09:00 03/23/24 09:11 Lamotrigine 50 Mg Tablet PO 50 mg Q12HR PHYLICIA Administration Levetiracetam 750 mg 03/20/24 09:00 03/23/24 09:11 Levetiracetam 250 Mg Tablet PO 750 mg DAILY PHYLICIA Administration Levothyroxine Sodium 50 mcg 03/20/24 06:50 03/23/24 05:32 Levothyroxine Sodium 50 Mcg Tablet PO 50 mcg DAILY@0630 PHYLICIA Administration Losartan Potassium 100 mg 03/20/24 09:00 03/23/24 09:13 Losartan Potassium 50 Mg Tablet PO 100 mg DAILY PHYLICIA Administration Miscellaneous Information 0 each 03/20/24 07:00 03/21/24 00:18 Naloxegol [Movantik] 25 Mg Tablet- Nonformulary. Please Obtain A Home Supply If Possible. XX 04/19/24 06:59 Not Given CLARIFY PHYLICIA Miscellaneous Information 0 each 03/20/24 07:05 03/21/24 00:18 Vortioxetine- Nonformulary. Please Obtain A Home Supply If Possible. XX 04/19/24 07:04 Not Given CLARIFY PHYLICIA Montelukast Sodium 10 mg 03/20/24 21:00 03/22/24 20:23 Montelukast Sodium 10 Mg Tablet PO 10 mg HS PHYLICIA Administration Nifedipine 90 mg 03/21/24 09:00 03/23/24 09:12 Nifedipine 30 Mg Tab.Er.24 PO 90 mg DAILY PHYLICIA Administration Nitroglycerin 0.4 mg 03/20/24 10:10 03/20/24 10:37 Nitroglycerin Sl 0.4 Mg Tablet SUBLINGUAL 0.4 mg Q5MIN PRN Administration Chest Pain Non-Formulary Medication 25 mg 03/20/24 09:00 Naloxegol [Movantik] PO 04/19/24 08:59 DAILY PHYLICIA Non-Formulary Medication 20 mg 03/20/24 09:00 Vortioxetine [Trintellix] PO 04/19/24 08:59 DAILY [facility] Oxycodone HCl 2.5 mg 03/20/24 06:49 03/23/24 09:10 Oxycodone Hcl (*Crx) 2.5 Mg Tab Ir PO 2.5 mg Q4H PRN Administration Pain (Scale Score 4-6) Oxycodone/Acetaminophen 1 tablet 03/20/24 06:48 03/23/24 09:07 Oxycodone/Acetaminophen (*Crx) 5-325 Mg Tablet PO 1 tablet Q4H PRN Administration Pain (Scale Score 4-6) Pantoprazole Sodium 40 mg 03/20/24 09:00 03/23/24 09:13 Pantoprazole 40 Mg Tablet PO 40 mg QAM PHYLICIA Administration Polyethylene Glycol 17 gm 03/20/24 06:22 Polyethylene Glycol 3350 17 Gm Powd.Pack PO BID PRN Constipation Ropinirole HCl 1 mg 03/20/24 09:00 03/23/24 09:11 Ropinirole Hcl 1 Mg Tablet PO 1 mg QAM PHYLICIA Administration Ropinirole HCl 1.5 mg 03/20/24 21:00 03/22/24 20:23 Ropinirole Hcl 0.5 Mg Tablet PO 1.5 mg HS PHYLICIA Administration Sevelamer Carbonate 2,400 mg 03/20/24 08:00 03/23/24 12:58 Sevelamer Carbonate 800 Mg Tablet PO 2,400 mg TIDWM PHYLICIA Administration Tizanidine HCl 4 mg 03/20/24 06:22 Tizanidine Hcl 4 Mg Tablet PO BID PRN Muscle Spasm Radiology Results: ITS Impressions Chest X-Ray 03/19/24 23:24 IMPRESSION: Cardiomegaly with cardiac decompensation and pulmonary edema. Right basal pneumonia. Labs Labs: Laboratory Results - last 24 hr 03/21/24 03/22/24 03/22/24 05:22 08:09 16:22 WBC RBC Hgb Hct MCV MCH MCHC RDW Plt Count MPV Immature Gran % (Auto) Neut % (Auto) Lymph % (Auto) [place] % (Auto) Eos % (Auto) Baso % (Auto) Lymph # (Auto) [place] # (Auto) Eos # (Auto) Baso # (Auto) Abs Immat Gran (auto) Absolute Neuts (auto) Absolute Nucleated RBC Nucleated RBC % Platelet Estimate Hypochromasia Anisocytosis Schistocytes Sodium Potassium Chloride Carbon Dioxide Anion Gap BUN Creatinine Estim Creat Clear Calc Estimated GFR Glucose POC Capillary Glucose 140 H Calcium Magnesium Total Bilirubin AST ALT Alkaline Phosphatase Lactate Dehydrogenase Total Protein Albumin C. difficile (PCR) Cancelled Blood Type O Positive Antibody Screen Positive Antibody Identification Anti-[place] Antigen Identification [place] Antigen - NEGATIVE ANIVAL, IgG Interpret Positive ANIVAL, Complement Interp Negative Enhanced Crossmatch See Detail 03/22/24 03/23/24 03/23/24 19:55 05:31 09:06 WBC 7.1 RBC 2.62 L Hgb 7.6 L Hct 25.6 L MCV 97.7 MCH 29.0 MCHC 29.7 L RDW 17.5 H Plt Count 153 MPV 9.6 Immature Gran % (Auto) 1.1 H Neut % (Auto) 74.0 H Lymph % (Auto) 8.5 L [place] % (Auto) 8.7 H Eos % (Auto) 7.3 H Baso % (Auto) 0.4 Lymph # (Auto) 0.60 L [place] # (Auto) 0.6 Eos # (Auto) 0.5 H Baso # (Auto) 0.0 Abs Immat Gran (auto) 0.08 H Absolute Neuts (auto) 5.3 Absolute Nucleated RBC 0.000 Nucleated RBC % 0.0 Platelet Estimate Adequate Hypochromasia 1+ Anisocytosis 1+ Schistocytes None seen Sodium 139 Potassium 3.8 Chloride 106 Carbon Dioxide 25 Anion Gap 8 BUN 18 H D Creatinine 3.60 H Estim Creat Clear Calc 14 Estimated GFR 13 L Glucose 126 H POC Capillary Glucose 157 H 145 H Calcium 8.3 L Magnesium 2.1 Total Bilirubin 0.4 AST 13 L ALT < 6 L Alkaline Phosphatase 207 H Lactate Dehydrogenase Total Protein 6.0 L Albumin 3.3 L C. difficile (PCR) Blood Type Antibody Screen Antibody Identification Antigen Identification ANIVAL, IgG Interpret ANIVAL, Complement Interp Enhanced Crossmatch 03/23/24 03/23/24 11:39 12:26 WBC RBC Hgb Hct MCV MCH MCHC RDW Plt Count MPV Immature Gran % (Auto) Neut % (Auto) Lymph % (Auto) [place] % (Auto) Eos % (Auto) Baso % (Auto) Lymph # (Auto) [place] # (Auto) Eos # (Auto) Baso # (Auto) Abs Immat Gran (auto) Absolute Neuts (auto) Absolute Nucleated RBC Nucleated RBC % Platelet Estimate Hypochromasia Anisocytosis Schistocytes Sodium Potassium Chloride Carbon Dioxide Anion Gap BUN Creatinine Estim Creat Clear Calc Estimated GFR Glucose POC Capillary Glucose 149 H Calcium Magnesium Total Bilirubin AST ALT Alkaline Phosphatase Lactate Dehydrogenase 189 Total Protein Albumin C. difficile (PCR) Blood Type Antibody Screen Antibody Identification Antigen Identification ANIVAL, IgG Interpret ANIVAL, Complement Interp Enhanced Crossmatch
[2024-03-23 17:51] LABS: Glucose Point of Care 103 mg/dl (65-105)
[2024-03-23] MEDS: rOPINIRole HCL 0.5 MG TABLET 1.5 MG PO (20:27)
[2024-03-23] MEDS: MONTELUKAST SODIUM 10 MG TABLET PO (20:27)
[2024-03-23] MEDS: cloNIDine HCL 0.1 MG TABLET PO (20:28)
[2024-03-23] MEDS: ATORVASTATIN 20 MG TABLET PO (20:28)
[2024-03-23 20:45] LABS: Glucose Point of Care 94 mg/dl (65-105)
[2024-03-24] VITALS (31 sets, daily range): BP systolic 173–204; BP diastolic 57–82; PULSE 60–70; RESP 18–20; TEMP 35.9–37.1; O2SAT 95–100
[2024-03-24] MEDS: LEVOTHYROXINE SODIUM 50 MCG TABLET PO (05:28)
[2024-03-24] MEDS: DOCUSATE SODIUM 100 MG CAPSULE PO ×2 (05:28→17:21)
[2024-03-24] MEDS: oxyCODONE/ACETAMINOPHEN (*CRX) 5-325 MG TABLET 1 TABLET PO ×2 (05:29→20:48)
[2024-03-24] MEDS: oxyCODONE HCL (*CRX) 2.5 MG TAB IR PO ×2 (05:32→20:48)
[2024-03-24 06:43] LABS: Haptoglobin 121 mg/dL (43-212)
[2024-03-24 07:49] LABS: Glucose Point of Care 109 mg/dl (65-105)
[2024-03-24 10:09] LABS: Basophils Percent Auto 0.8 % (0.2-1.2); Eosinophils Absolute Auto 0.4 K/mm3 (0-0.3); Eosinophils Percent Auto 6.8 % (0-4.4); Hematocrit 22.3 % (37.0-47.0); Immature Granulocyte Absolute 0.09 K/mm3 (0.00-0.031); Immature Granulocyte Percent A 1.7 % (0-0.5); Lymphocytes Percent Auto 9.5 % (18.3-44.2); Mean Corpuscular Hemoglobin 28.9 pg (26-34); Mean Corpuscular Volume 96.1 fl (80-100); Mean Platelet Volume 9.5 fl (7.4-10.4); Monocytes Absolute Auto 0.4 K/mm3 (0.1-0.6); Monocytes Percent Auto 6.6 % (2.6-8.5); Neutrophils Absolute Auto 3.9 K/mm3 (1.3-6.7); Neutrophils Percent Auto 74.6 % (45.5-73.1); Platelet Count Result 137 k/mm3 (150-375); Red Blood Count 2.32 M/mm3 (4.2-5.4); Red Cell Distribution Width 17.7 % (11.5-14.5); White Blood Count 5.3 K/mm3 (4.5-10.0)
[2024-03-24 10:16] LABS: Hemoglobin 6.7 g/dL (12.0-15.0)
[2024-03-24 10:19] LABS: Alkaline Phosphatase 185 U/L (38-126); Anion Gap 8 mmol/L (4-12); Aspartate Amino Transferase 12 U/L (14-36); Bilirubin,Total 0.5 mg/dL (0.2-1.3); Blood Urea Nitrogen 26 mg/dL (7-17); Carbon Dioxide 26 mmol/L (22-30); Chloride 102 mmol/L (98-107); Estimated CRCL calculation 11 ml/min; Estimated Glomerular Filt Rate 10; Glucose 106 mg/dL (65-110); Magnesium 2.1 mg/dL (1.6-2.3); Potassium 3.9 mmol/L (3.4-5.0); Sodium 136 mmol/L (137-145)
[2024-03-24 10:23] LABS: Alanine Aminotransferase < 6 U/L (6-35)
[2024-03-24] MEDS: EPOETIN ALFA 20,000 UNITS/ML VIAL 20000 UNITS IV PUSH (10:51)
--- NOTE | 2024-03-24 12:00 | P.PNNP_ITS ---
Progress Note: A&P Assessment and Plan (1) End stage renal disease: Code(s): N18.6 - End stage renal disease Status: Chronic Assessment and Plan: * HD today * continue outpatient dialysis schedule of // * follow electrolytes, volume status, and clearance (2) Pneumonia: Qualifiers: Laterality: unspecified laterality Lung location: unspecified part of lung Pneumonia type: due to unspecified organism Qualified Code(s): J18.9 - Pneumonia, unspecified organism Code(s): J18.9 - Pneumonia, unspecified organism Status: Acute Assessment and Plan: * as suggested by admission imaging * follow respiratory status (stable at this time) * follow culture data - negative to date * on antibiotics * continue supportive therapy (3) Hypertension: Qualifiers: Hypertension type: secondary to other renal disorders Qualified Code(s): I15.1 - Hypertension secondary to other renal disorders; N28.89 - Other specified disorders of kidney and ureter Code(s): I10 - Essential (primary) hypertension Status: Acute Assessment and Plan: * elevated on presentation * seems to fluctuate to extremes * being more aggressive with ultrafiltration with HD to see if that helps * resumed home medications * follow trend of hemodynamics (4) Anemia: Qualifiers: Anemia type: due to chronic kidney disease Chronic kidney disease stage: on chronic dialysis Qualified Code(s): N18.6 - End stage renal disease; D63.1 - Anemia in chronic kidney disease; Z99.2 - Dependence on renal dialysis Code(s): D64.9 - Anemia, unspecified Status: Acute Assessment and Plan: * partly related to ESRD * however, recurrent issues with anemia requiring PRBC transfusion on previous hospitalization * 4 units transfused during January 2024 hospitalization * prior GI work-up noted * Epogen/Retacrit with HD * GI and Hem/Onc recommendations noted * plan PRBC transfusion with HD today * follow trend on H/H (5) Paroxysmal A-fib: Code(s): I48.0 - Paroxysmal atrial fibrillation Status: Acute Assessment and Plan: * stable at this time * no anticoagulation due to recurrent/chronic anemia (6) Generalized weakness: Code(s): R53.1 - Weakness Status: Acute Assessment and Plan: * as noted on admission * possibly partly related to anemia and recent operative procedure (left arm AV access placement) * PT/OT as tolerated Will continue to follow. Subjective Date/time seen: 03/24/24 12:00 Interval history: Follow-up for end stage renal disease on hemodialysis. Tolerating dialysis treatment at the time of my visit (seen on HD at 11:50AM); getting PRBC transfusion with dialysis treatment given low H/H noted by recent labs; major complaint is that of a headache when seen despite medications overnight (narcotics and xanax) and BP noted to quite high when seen as well) Exam Narrative: General: elderly but WD/WN female in NAD Heart: normal S1 and S2; no rub Lungs: clear anteriorly; decreased at bases Abdomen: soft, nontender, nondistended, positive bowel sounds Extremities: no cyanosis or clubbing; no edema Skin: no nodules Objective Data Vital Signs Vital Signs: Vital Signs Temp Pulse Resp BP Pulse Ox O2 Del Method 03/24/24 12:00 63 190/82 H 03/24/24 11:45 63 197/81 H 03/24/24 11:30 64 191/78 H 03/24/24 11:15 62 186/75 H 03/24/24 11:00 62 185/79 H 03/24/24 10:45 62 185/82 H 03/24/24 10:30 63 195/78 H 03/24/24 10:15 63 196/79 H 03/24/24 10:00 63 192/81 H 03/24/24 09:45 62 190/79 H 03/24/24 09:37 62 188/77 H 03/24/24 09:19 98.2 F 62 18 176/76 H 03/24/24 04:00 67 03/24/24 00:00 67 03/23/24 20:00 67 03/24/24 05:24 98.3 F 65 20 173/59 H 95 03/23/24 20:50 98.4 F 69 20 176/60 H 95 03/23/24 20:00 Room Air 03/23/24 16:00 64 Intake/Output Intake/Output: Intake & Output 03/21/24 03/22/24 03/23/24 03/24/24 23:59 23:59 23:59 23:59 Intake Total 9614 525 2731 890 Output Total 0 4000 0 Balance 1250 -3163 2060 890 Meds/Results Medications: Active Medications Generic Name Dose Route Start Last Admin Trade Name Freq PRN Reason Stop Dose Admin Acetaminophen 650 mg 03/20/24 09:25 03/20/24 09:36 Acetaminophen 325 Mg Tablet PO 650 mg Q6H PRN Administration Mild Pain (1-3) or Fever Albuterol 2 puff 03/20/24 06:22 03/22/24 04:35 Albuterol Sulfate (*Sp) Aerosol 1 Puff INHALATION 2 puff Q6H PRN Administration Shortness Of Breath Or Wheezing Allopurinol 100 mg 03/20/24 08:00 03/24/24 14:04 Allopurinol 100 Mg Tablet PO 100 mg DAILY@0800 PHYLICIA Administration Alprazolam 0.5 mg 03/20/24 06:22 03/24/24 14:15 Alprazolam (*Crx) 0.5 Mg Tablet PO 0.5 mg QID PRN Administration Anxiety Amantadine HCl 100 mg 03/22/24 09:00 03/22/24 13:27 Amantadine Hcl 100 Mg Capsule PO 100 mg Mo@0900 PHYLICIA Administration Amoxicillin/Clavulanate Potassium 1 tablet 03/22/24 21:00 03/24/24 14:02 Amoxicillin/Clavulanate K 500-125 Mg Tab PO 03/26/24 21:01 1 tablet Q12HR PHYLICIA Administration Anastrozole 1 mg 03/20/24 09:00 03/24/24 14:04 Anastrozole (*Chemo) 1 Mg Tablet PO 1 mg DAILY PHYLICIA Administration Aspirin 81 mg 03/20/24 11:00 03/24/24 14:03 Aspirin 81 Mg Enteric Tablet PO 81 mg QAM PHYLICIA Administration Atorvastatin Calcium 20 mg 03/20/24 21:00 03/23/24 20:28 Atorvastatin 20 Mg Tablet PO 20 mg HS PHYLICIA Administration Carvedilol 6.25 mg 03/20/24 09:00 03/24/24 14:03 Carvedilol 6.25 Mg Tablet PO 6.25 mg Q12HR PHYLICIA Administration Clonidine HCl 0.1 mg 03/23/24 21:00 03/24/24 14:02 Clonidine Hcl 0.1 Mg Tablet PO 0.1 mg Q12HR PHYLICIA Administration Docusate Sodium 100 mg 03/20/24 06:25 03/24/24 05:28 Docusate Sodium 100 Mg Capsule PO 100 mg Q12H PHYLICIA Administration Doxycycline Hyclate 100 mg 03/22/24 21:00 03/24/24 14:04 Doxycycline Hyclate 100 Mg Tablet PO 03/24/24 21:01 100 mg Q12HR PHYLICIA Administration Epoetin George 20,000 units 03/24/24 20:00 03/24/24 10:51 Epoetin George 20,000 Units/Ml Vial IV PUSH 03/24/24 20:01 20,000 units ONCE ONE Administration Fluticasone Propionate 1 spray 03/20/24 06:22 Fluticasone Propionate 0.05% Na Spr 16 Gm Btl (*Bkc) NASAL DAILY PRN allergies Folic Acid 1 mg 03/20/24 09:00 03/24/24 14:03 Folic Acid 1 Mg Tablet PO 1 mg DAILY PHYLICIA Administration Furosemide 80 mg 03/20/24 09:00 03/24/24 14:03 Furosemide 80 Mg Tablet PO 80 mg DAILY PHYLICIA Administration Hydralazine HCl 100 mg 03/20/24 08:00 03/24/24 14:05 Hydralazine Hcl 50 Mg Tablet PO Not Given TIDWM PHYLICIA Hydralazine HCl 10 mg 03/20/24 15:22 03/22/24 15:48 Hydralazine Hcl 20 Mg/Ml Vial IV PUSH 10 mg Q6HR PRN Administration Blood Pressure - High Albumin Human 50 mls @ 999 mls/hr 03/22/24 07:10 Albutein IVPB 04/21/24 07:09 Q10M PRN HYPOTENSION Insulin Glargine 6 units 03/20/24 09:00 03/24/24 14:01 Insulin Glargine (*Bkc) 100 Units/Ml SUB-Q Not Given DAILY PHYLICIA Lamotrigine 100 mg 03/20/24 09:00 03/24/24 14:02 Lamotrigine 100 Mg Tablet PO 100 mg Q12HR PHYLICIA Administration Lamotrigine 50 mg 03/20/24 09:00 03/24/24 14:02 Lamotrigine 50 Mg Tablet PO 50 mg Q12HR PHYLICIA Administration Levetiracetam 750 mg 03/20/24 09:00 03/24/24 14:03 Levetiracetam 250 Mg Tablet PO 750 mg DAILY PHYLICIA Administration Levothyroxine Sodium 50 mcg 03/20/24 06:50 03/24/24 05:28 Levothyroxine Sodium 50 Mcg Tablet PO 50 mcg DAILY@0630 PHYLICIA Administration Losartan Potassium 100 mg 03/20/24 09:00 03/24/24 14:03 Losartan Potassium 50 Mg Tablet PO 100 mg DAILY PHYLICIA Administration Miscellaneous Information 0 each 03/20/24 07:00 03/24/24 05:27 Naloxegol [Movantik] 25 Mg Tablet- Nonformulary. Please Obtain A Home Supply If Possible. XX 04/19/24 06:59 Not Given CLARIFY PHYLICIA Miscellaneous Information 0 each 03/20/24 07:05 03/24/24 05:28 Vortioxetine- Nonformulary. Please Obtain A Home Supply If Possible. XX 04/19/24 07:04 Not Given CLARIFY PHYLICIA Montelukast Sodium 10 mg 03/20/24 21:00 03/23/24 20:27 Montelukast Sodium 10 Mg Tablet PO 10 mg HS PHYLICIA Administration Nifedipine 90 mg 03/21/24 09:00 03/24/24 14:04 Nifedipine 30 Mg Tab.Er.24 PO 90 mg DAILY PHYLICIA Administration Nitroglycerin 0.4 mg 03/20/24 10:10 03/20/24 10:37 Nitroglycerin Sl 0.4 Mg Tablet SUBLINGUAL 0.4 mg Q5MIN PRN Administration Chest Pain Non-Formulary Medication 25 mg 03/20/24 09:00 Naloxegol [Movantik] PO 04/19/24 08:59 DAILY PHYLICIA Non-Formulary Medication 20 mg 03/20/24 09:00 Vortioxetine [Trintellix] PO 04/19/24 08:59 DAILY [facility] Oxycodone HCl 2.5 mg 03/20/24 06:49 03/24/24 05:32 Oxycodone Hcl (*Crx) 2.5 Mg Tab Ir PO 2.5 mg Q4H PRN Administration Pain (Scale Score 4-6) Oxycodone/Acetaminophen 1 tablet 03/20/24 06:48 03/24/24 05:29 Oxycodone/Acetaminophen (*Crx) 5-325 Mg Tablet PO 1 tablet Q4H PRN Administration Pain (Scale Score 4-6) Pantoprazole Sodium 40 mg 03/20/24 09:00 03/24/24 14:02 Pantoprazole 40 Mg Tablet PO 40 mg QAM PHYLICIA Administration Polyethylene Glycol 17 gm 03/20/24 06:22 Polyethylene Glycol 3350 17 Gm Powd.Pack PO BID PRN Constipation Ropinirole HCl 1 mg 03/20/24 09:00 03/24/24 14:03 Ropinirole Hcl 1 Mg Tablet PO 1 mg QAM PHYLICIA Administration Ropinirole HCl 1.5 mg 03/20/24 21:00 03/23/24 20:27 Ropinirole Hcl 0.5 Mg Tablet PO 1.5 mg HS PHYLICIA Administration Sevelamer Carbonate 2,400 mg 03/20/24 08:00 03/24/24 14:05 Sevelamer Carbonate 800 Mg Tablet PO Not Given TIDWM PHYLICIA Tizanidine HCl 4 mg 03/20/24 06:22 Tizanidine Hcl 4 Mg Tablet PO BID PRN Muscle Spasm Radiology Results: ITS Impressions Chest X-Ray 03/24/24 15:05 IMPRESSION: 1. Decreasing mild pulmonary edema. 2. Small bilateral pleural effusions with associated basilar atelectasis and/or pneumonia. Labs Labs: Laboratory Tests 03/24/24 09:59 03/24/24 09:59 Calcium 8.0 L Magnesium 2.1 Total Bilirubin 0.5 AST 12 L ALT < 6 L Alkaline Phosphatase 185 H Total Protein 6.0 L Albumin 3.0 L
--- NOTE | 2024-03-24 13:30 | PC.NURSE ---
One unit PRBC'S transfused per timber management specialist. Pt tolerated well. No S/S adverse reaction. Pt offers no complaints.
[2024-03-24] MEDS: cloNIDine HCL 0.1 MG TABLET PO ×2 (14:02→20:48)
[2024-03-24] MEDS: lamoTRIgine 100 MG TABLET PO ×2 (14:02→20:49)
[2024-03-24] MEDS: lamoTRIgine 50 MG TABLET PO ×2 (14:02→20:49)
[2024-03-24] MEDS: hydrALAZINE HCL 50 MG TABLET 100 MG PO ×2 (14:02→17:19)
[2024-03-24] MEDS: SEVELAMER CARBONATE 800 MG TABLET 2400 MG PO ×2 (14:02→17:19)
[2024-03-24] MEDS: PANTOPRAZOLE 40 MG TABLET PO (14:02)
[2024-03-24] MEDS: AMOXICILLIN/CLAVULANATE K 500-125 MG TAB 1 TABLET PO ×2 (14:02→20:47)
[2024-03-24] MEDS: FOLIC ACID 1 MG TABLET PO (14:03)
[2024-03-24] MEDS: LOSARTAN POTASSIUM 50 MG TABLET 100 MG PO (14:03)
[2024-03-24] MEDS: FUROSEMIDE 80 MG TABLET PO (14:03)
[2024-03-24] MEDS: levETIRAcetam 250 MG TABLET 750 MG PO (14:03)
[2024-03-24] MEDS: rOPINIRole HCL 1 MG TABLET PO (14:03)
[2024-03-24] MEDS: carvediloL 6.25 MG TABLET PO ×2 (14:03→20:47)
[2024-03-24] MEDS: ASPIRIN 81 MG ENTERIC TABLET PO (14:03)
--- NOTE | 2024-03-24 14:03 | P.PNIM_ITS ---
Progress Note: A&P Assessment and Plan (1) Pneumonia: Qualifiers: Laterality: unspecified laterality Lung location: unspecified part of lung Pneumonia type: due to unspecified organism Qualified Code(s): J18.9 - Pneumonia, unspecified organism Code(s): J18.9 - Pneumonia, unspecified organism Status: Acute (2) End stage renal disease: Code(s): N18.6 - End stage renal disease Status: Chronic (3) Generalized weakness: Code(s): R53.1 - Weakness Status: Acute (4) Paroxysmal A-fib: Code(s): I48.0 - Paroxysmal atrial fibrillation Status: Acute (5) Uncontrolled hypertension: Code(s): I10 - Essential (primary) hypertension Status: Acute (6) Anemia in ESRD (end-stage renal disease): Code(s): N18.6 - End stage renal disease; D63.1 - Anemia in chronic kidney disease Status: Acute (7) Neuropathy: Code(s): G62.9 - Polyneuropathy, unspecified Status: Acute Plan This is a 68-year-old female presents to the hospital with shortness of breath which has been worsening over the past few days. ED evaluation vitals were stable except hypertension blood pressure 1 to 116/76 she has been undergoing dialysis as previously scheduled. Is noted blood pressure has always been elevated. Laboratory evaluation was performed which showed normal WBC at 9 hemoglobin of 8 creatinine of 2.9 -x3 0.3. Received a dose of hydralazine for her blood pressure. EKG showed nonspecific ST-T changes. Elevated was mildly elevated at 0.045 subsequent level up trended to 0.129. BNP more than 30,000. Chest x-ray showed right basilar pneumonia. Along with findings of cardiomegaly cardiac decompensation and pulmonary edema. she is admitted for further treatment and evaluation. Right basal pneumonia: Ceftriaxone doxycycline ordered. Sputum culture negative. BCx NGTD. Repeat CXR showing decrease in pulm edema and small effusions and associated airspace disease. Antibiotics switched to oral to complete a course Elevated troponin up trending 0.045-0.129. EKG with marked ST depressions and T wave inversion on repeat EKG. Does have history of GI bleed in the past. Re- consult Cardiology. Added aspirin 81 mg daily. Continue tele. Check Echo Hypertension uncontrolled on admission on hydralazine p.r.n. Procardia to 90 mg also on hydralazine 100 mg t.i.d. along with losartan 100 mg daily Coreg 6.25 twice daily. Added clonidine which will be uptitrated to 0.1 Q12h. Defer to nephrology. Chronic anemia: Hemoglobin around 7-8 and stable no signs of active bleeding. Anemia worsened down to 6.9 and transfused 1 unit PRBC. However had antibody and did not receive. Repeat H&H this a.m. was adequate at 6.7. Hematology was consulted. She was able to receive one unit of PRBCs today with HD. Follow End-stage renal disease on hemodialysis Friday Nephrology consulted. Continue HD Noninvasive reflux disease/gastritis / esophagitis on PPI Gastric polyp previously evaluated by EGD on 01/13/2024 GI consulted. Plan for video capsule endoscopy Anxiety depression/bipolar disorder Breast cancer status post lumpectomy Coronary artery disease Gastroparesis Tardive dyskinesia KACIE History of peptic ulcer Neuropathy Paroxysmal atrial fibrillation used to be on anticoagulation but now held due to recurrent anemia and GI bleed DVT prophylaxis SCDs Code status full code Subjective Date/time seen: 03/24/24 14:03 Interval history: 68yo female with ESRD on HD, DM, HTNm CAD, Gastroparesis and bipolar disorder here for shortness of breath. Assuming care. Chart reveiwed. Had n/v last night that was bilious but no blood. Complains of headahce. She hasn't eaten today. Last BM was yesterday. No diarrhea. Having abdominal pain diffusely. Cough productive of clear sputum. Having trouble taking a deep breath which causes her chest to feel tight. Exam Narrative: AF 97.9 181/66 64 18 95% ra Gen - NARD lyiing semi-recumbent undergoing HD. Chest - Rt upper chest HD tunneled catheter currently accessed. Decreased BS in the bases o/w distant BS CV - RRR S1/S2 2/6 systolic murmur USB. Tele showing no significant dysrhythmias Abd - Soft, diffusely tender. Ext - No pedal edema. Left UE fistula thrill/bruit. RUE defunct fistula Psych - Nml mood and affect Skin - Warm and dry Objective Data Vital Signs Vital Signs: Vital Signs - 24 hr 03/23/24 16:00 03/23/24 20:00 03/23/24 20:50 Temperature 98.4 F Pulse Rate 64 69 Respiratory Rate 20 Blood Pressure 176/60 H Pulse Oximetry 95 Oxygen Delivery Room Air 03/24/24 05:24 03/23/24 20:00 03/24/24 00:00 Temperature 98.3 F Pulse Rate 65 67 67 Respiratory Rate 20 Blood Pressure 173/59 H Pulse Oximetry 95 Oxygen Delivery 03/24/24 04:00 03/24/24 09:19 03/24/24 09:37 Temperature 98.2 F Pulse Rate 67 62 62 Respiratory Rate 18 Blood Pressure 176/76 H 188/77 H Pulse Oximetry Oxygen Delivery 03/24/24 09:45 03/24/24 10:00 03/24/24 10:15 Temperature Pulse Rate 62 63 63 Respiratory Rate Blood Pressure 190/79 H 192/81 H 196/79 H Pulse Oximetry Oxygen Delivery 03/24/24 10:30 03/24/24 10:45 03/24/24 11:00 Temperature Pulse Rate 63 62 62 Respiratory Rate Blood Pressure 195/78 H 185/82 H 185/79 H Pulse Oximetry Oxygen Delivery 03/24/24 11:15 03/24/24 11:30 03/24/24 11:45 Temperature Pulse Rate 62 64 63 Respiratory Rate Blood Pressure 186/75 H 191/78 H 197/81 H Pulse Oximetry Oxygen Delivery 03/24/24 12:00 03/24/24 12:15 03/24/24 12:05 Temperature 97.9 F Pulse Rate 63 64 63 Respiratory Rate 18 Blood Pressure 190/82 H 204/80 H 190/82 H Pulse Oximetry Oxygen Delivery 03/24/24 12:21 03/24/24 08:00 03/24/24 08:00 Temperature 97.9 F Pulse Rate 64 64 64 Respiratory Rate 18 18 Blood Pressure 181/66 H Pulse Oximetry 95 Oxygen Delivery Room Air Intake/Output Intake/Output: Intake & Output 03/21/24 03/22/24 03/23/24 03/24/24 23:59 23:59 23:59 23:59 Intake Total 9543 669 5945 540 Output Total 0 4000 0 Balance 1250 -3163 2060 540 Meds/Results Medications: Active Medications Generic Name Dose Route Start Last Admin Trade Name Freq PRN Reason Stop Dose Admin Acetaminophen 650 mg 03/20/24 09:25 03/20/24 09:36 Acetaminophen 325 Mg Tablet PO 650 mg Q6H PRN Administration Mild Pain (1-3) or Fever Albuterol 2 puff 03/20/24 06:22 03/22/24 04:35 Albuterol Sulfate (*Sp) Aerosol 1 Puff INHALATION 2 puff Q6H PRN Administration Shortness Of Breath Or Wheezing Allopurinol 100 mg 03/20/24 08:00 03/23/24 09:13 Allopurinol 100 Mg Tablet PO 100 mg DAILY@0800 PHYLICIA Administration Alprazolam 0.5 mg 03/20/24 06:22 03/23/24 23:40 Alprazolam (*Crx) 0.5 Mg Tablet PO 0.5 mg QID PRN Administration Anxiety Amantadine HCl 100 mg 03/22/24 09:00 03/22/24 13:27 Amantadine Hcl 100 Mg Capsule PO 100 mg Mo@0900 PHYLICIA Administration Amoxicillin/Clavulanate Potassium 1 tablet 03/22/24 21:00 03/23/24 20:28 Amoxicillin/Clavulanate K 500-125 Mg Tab PO 03/26/24 21:01 1 tablet Q12HR PHYLICIA Administration Anastrozole 1 mg 03/20/24 09:00 03/23/24 09:12 Anastrozole (*Chemo) 1 Mg Tablet PO 1 mg DAILY PHYLICIA Administration Aspirin 81 mg 03/20/24 11:00 03/23/24 09:13 Aspirin 81 Mg Enteric Tablet PO 81 mg QAM PHYLICIA Administration Atorvastatin Calcium 20 mg 03/20/24 21:00 03/23/24 20:28 Atorvastatin 20 Mg Tablet PO 20 mg HS PHYLICIA Administration Carvedilol 6.25 mg 03/20/24 09:00 03/23/24 20:28 Carvedilol 6.25 Mg Tablet PO 6.25 mg Q12HR PHYLICIA Administration Clonidine HCl 0.1 mg 03/23/24 21:00 03/23/24 20:28 Clonidine Hcl 0.1 Mg Tablet PO 0.1 mg Q12HR PHYLICIA Administration Docusate Sodium 100 mg 03/20/24 06:25 03/24/24 05:28 Docusate Sodium 100 Mg Capsule PO 100 mg Q12H PHYLICIA Administration Doxycycline Hyclate 100 mg 03/22/24 21:00 03/23/24 20:28 Doxycycline Hyclate 100 Mg Tablet PO 03/24/24 21:01 100 mg Q12HR PHYLICIA Administration Epoetin George 20,000 units 03/24/24 20:00 03/24/24 10:51 Epoetin George 20,000 Units/Ml Vial IV PUSH 03/24/24 20:01 20,000 units ONCE ONE Administration Fluticasone Propionate 1 spray 03/20/24 06:22 Fluticasone Propionate 0.05% Na Spr 16 Gm Btl (*Bkc) NASAL DAILY PRN allergies Folic Acid 1 mg 03/20/24 09:00 03/23/24 09:13 Folic Acid 1 Mg Tablet PO 1 mg DAILY PHYLICIA Administration Furosemide 80 mg 03/20/24 09:00 03/23/24 09:13 Furosemide 80 Mg Tablet PO 80 mg DAILY PHYLICIA Administration Hydralazine HCl 100 mg 03/20/24 08:00 03/23/24 17:43 Hydralazine Hcl 50 Mg Tablet PO 100 mg TIDWM PHYLICIA Administration Hydralazine HCl 10 mg 03/20/24 15:22 03/22/24 15:48 Hydralazine Hcl 20 Mg/Ml Vial IV PUSH 10 mg Q6HR PRN Administration Blood Pressure - High Albumin Human 50 mls @ 999 mls/hr 03/22/24 07:10 Albutein IVPB 04/21/24 07:09 Q10M PRN HYPOTENSION Insulin Glargine 6 units 03/20/24 09:00 03/24/24 14:01 Insulin Glargine (*Bkc) 100 Units/Ml SUB-Q Not Given DAILY PHYLICIA Lamotrigine 100 mg 03/20/24 09:00 03/23/24 20:27 Lamotrigine 100 Mg Tablet PO 100 mg Q12HR PHYLICIA Administration Lamotrigine 50 mg 03/20/24 09:00 03/23/24 20:28 Lamotrigine 50 Mg Tablet PO 50 mg Q12HR PHYLICIA Administration Levetiracetam 750 mg 03/20/24 09:00 03/23/24 09:11 Levetiracetam 250 Mg Tablet PO 750 mg DAILY PHYLICIA Administration Levothyroxine Sodium 50 mcg 03/20/24 06:50 03/24/24 05:28 Levothyroxine Sodium 50 Mcg Tablet PO 50 mcg DAILY@0630 PHYLICIA Administration Losartan Potassium 100 mg 03/20/24 09:00 03/23/24 09:13 Losartan Potassium 50 Mg Tablet PO 100 mg DAILY PHYLICIA Administration Miscellaneous Information 0 each 03/20/24 07:00 03/24/24 05:27 Naloxegol [Movantik] 25 Mg Tablet- Nonformulary. Please Obtain A Home Supply If Possible. XX 04/19/24 06:59 Not Given CLARIFY PHYLICIA Miscellaneous Information 0 each 03/20/24 07:05 03/24/24 05:28 Vortioxetine- Nonformulary. Please Obtain A Home Supply If Possible. XX 04/19/24 07:04 Not Given CLARIFY PHYLICIA Montelukast Sodium 10 mg 03/20/24 21:00 03/23/24 20:27 Montelukast Sodium 10 Mg Tablet PO 10 mg HS PHYLICIA Administration Nifedipine 90 mg 03/21/24 09:00 03/23/24 09:12 Nifedipine 30 Mg Tab.Er.24 PO 90 mg DAILY PHYLICIA Administration Nitroglycerin 0.4 mg 03/20/24 10:10 03/20/24 10:37 Nitroglycerin Sl 0.4 Mg Tablet SUBLINGUAL 0.4 mg Q5MIN PRN Administration Chest Pain Non-Formulary Medication 25 mg 03/20/24 09:00 Naloxegol [Movantik] PO 04/19/24 08:59 DAILY PHYLICIA Non-Formulary Medication 20 mg 03/20/24 09:00 Vortioxetine [Trintellix] PO 04/19/24 08:59 DAILY PHYLICIA Oxycodone HCl 2.5 mg 03/20/24 06:49 03/24/24 05:32 Oxycodone Hcl (*Crx) 2.5 Mg Tab Ir PO 2.5 mg Q4H PRN Administration Pain (Scale Score 4-6) Oxycodone/Acetaminophen 1 tablet 03/20/24 06:48 03/24/24 05:29 Oxycodone/Acetaminophen (*Crx) 5-325 Mg Tablet PO 1 tablet Q4H PRN Administration Pain (Scale Score 4-6) Pantoprazole Sodium 40 mg 03/20/24 09:00 03/23/24 09:13 Pantoprazole 40 Mg Tablet PO 40 mg QAM PHYLICIA Administration Polyethylene Glycol 17 gm 03/20/24 06:22 Polyethylene Glycol 3350 17 Gm Powd.Pack PO BID PRN Constipation Ropinirole HCl 1 mg 03/20/24 09:00 03/23/24 09:11 Ropinirole Hcl 1 Mg Tablet PO 1 mg QAM PHYLICIA Administration Ropinirole HCl 1.5 mg 03/20/24 21:00 03/23/24 20:27 Ropinirole Hcl 0.5 Mg Tablet PO 1.5 mg HS PHYLICIA Administration Sevelamer Carbonate 2,400 mg 03/20/24 08:00 03/23/24 17:43 Sevelamer Carbonate 800 Mg Tablet PO 2,400 mg TIDWM PHYLICIA Administration Tizanidine HCl 4 mg 03/20/24 06:22 Tizanidine Hcl 4 Mg Tablet PO BID PRN Muscle Spasm Radiology Results: ITS Impressions Chest X-Ray 03/19/24 23:24 IMPRESSION: Cardiomegaly with cardiac decompensation and pulmonary edema. Right basal pneumonia. Labs Labs: Laboratory Results - last 24 hr 03/22/24 03/23/24 03/23/24 08:09 12:26 16:36 WBC RBC Hgb Hct MCV MCH MCHC RDW Plt Count MPV Immature Gran % (Auto) Neut % (Auto) Lymph % (Auto) [place] % (Auto) Eos % (Auto) Baso % (Auto) Lymph # (Auto) [place] # (Auto) Eos # (Auto) Baso # (Auto) Abs Immat Gran (auto) Absolute Neuts (auto) Absolute Nucleated RBC Nucleated RBC % Haptoglobin 121 Sodium Potassium Chloride Carbon Dioxide Anion Gap BUN Creatinine Estim Creat Clear Calc Estimated GFR Glucose POC Capillary Glucose 103 Calcium Magnesium Total Bilirubin AST ALT Alkaline Phosphatase Total Protein Albumin Blood Type O Positive Antibody Screen Positive Antibody Identification Anti-Comptche Antigen Identification Cherry Antigen - NEGATIVE ANIVAL, IgG Interpret Positive ANIVAL, Complement Interp Negative Enhanced Crossmatch See Detail 03/23/24 03/24/24 03/24/24 20:06 07:35 09:59 WBC 5.3 RBC 2.32 L Hgb 6.7 L* Hct 22.3 L MCV 96.1 MCH 28.9 MCHC 30.0 L RDW 17.7 H Plt Count 137 L MPV 9.5 Immature Gran % (Auto) 1.7 H Neut % (Auto) 74.6 H Lymph % (Auto) 9.5 L [place] % (Auto) 6.6 Eos % (Auto) 6.8 H Baso % (Auto) 0.8 Lymph # (Auto) 0.50 L [place] # (Auto) 0.4 Eos # (Auto) 0.4 H Baso # (Auto) 0.0 Abs Immat Gran (auto) 0.09 H Absolute Neuts (auto) 3.9 Absolute Nucleated RBC 0.000 Nucleated RBC % 0.0 Haptoglobin Sodium 136 L Potassium 3.9 Chloride 102 Carbon Dioxide 26 Anion Gap 8 BUN 26 H Creatinine 4.50 H Estim Creat Clear Calc 11 Estimated GFR 10 L Glucose 106 POC Capillary Glucose 94 109 H Calcium 8.0 L Magnesium 2.1 Total Bilirubin 0.5 AST 12 L ALT < 6 L Alkaline Phosphatase 185 H Total Protein 6.0 L Albumin 3.0 L Blood Type Antibody Screen Antibody Identification Antigen Identification ANIVAL, IgG Interpret ANIVAL, Complement Interp Enhanced Crossmatch
[2024-03-24] MEDS: NIFEdipine 30 MG TAB.ER.24 90 MG PO (14:04)
[2024-03-24] MEDS: allopurinoL 100 MG TABLET PO (14:04)
[2024-03-24] MEDS: DOXYCYCLINE HYCLATE 100 MG TABLET PO ×2 (14:04→20:47)
[2024-03-24] MEDS: ANASTROZOLE (*CHEMO) 1 MG TABLET PO (14:04)
--- NOTE | 2024-03-24 14:14 | ECG_ITS ---
Test Date: 2024-03-24 14:33:25 Measurements Intervals [place] Rate: 67 P: 49 NH: 222 QRS: 60 QRSD: 109 T: 212 QT: 485 QTc: 512 Interpretive Statements SINUS RHYTHM WITH FIRST DEGREE AV BLOCK MODERATE T-WAVE ABNORMALITY, CONSIDER ANTEROLATERAL ISCHEMIA [-0.1+ mV T-WAVE IN V3/V4] MODERATE T-WAVE ABNORMALITY, CONSIDER INFERIOR ISCHEMIA [-0.1+ mV T-WAVE IN II/aVF] Compared to ECG 03/22/2024 05:14:50 NO SIGNIFICANT CHANGES Electronically Signed On 03-25-2024 09:36:14 CDT by Haylee Vargas M.D.
[2024-03-24] MEDS: ALPRAZolam (*CRX) 0.5 MG TABLET PO (14:15)
[2024-03-24 16:18] LABS: Glucose Point of Care 210 mg/dl (65-105)
[2024-03-24 20:08] LABS: Glucose Point of Care 173 mg/dl (65-105)
[2024-03-24] MEDS: ATORVASTATIN 20 MG TABLET PO (20:47)
[2024-03-24] MEDS: rOPINIRole HCL 0.5 MG TABLET 1.5 MG PO (20:47)
[2024-03-24] MEDS: MONTELUKAST SODIUM 10 MG TABLET PO (20:48)
[2024-03-25] VITALS (11 sets, daily range): BP systolic 146–194; BP diastolic 56–78; PULSE 54–66; RESP 16–18; TEMP 36.1–36.7; O2SAT 99–100
--- NOTE | 2024-03-25 | ECHO_ITS ---
Patient Info Name: Yasmin Colbert Age: 68 years : 1955 Gender: Female Ht: 68 in Wt: 170 lbs BSA: 1.94 m2 HR: 51 bpm BP: 165 / 56 mmHg Heart Rhythm: Sinus Rhythm Technical Quality: Fair Exam Date: 03/25/2024 12:31 PM Exam Location: Echo Lab Patient Status: Inpatient Admit Date: 03/20/2024 Staff Ordering Physician: Gurvinder Lopez MD [employer] Roofer: Dioni Hernandes RDCS Attending Provider: Maddy Greer MD Exam Type: CA echo doppler color flow Study Info Indications R94.31 - Abnormal electrocardiogram ECG EKG - Elevated Trop Complete two-dimensional, color flow and Doppler transthoracic echocardiogram is performed. Summary 1. Left ventricular chamber dimension is normal. 2. Left ventricular systolic function is normal, estimated at 65-70%. 3. There is moderately increased left ventricular wall thickness. 4. The left ventricular diastolic function is grade I diastolic dysfunction. 5. Right ventricular systolic function is normal. 6. Left atrial chamber dimension is moderately enlarged. 7. Right atrial chamber dimension is moderately enlarged. 8. There is mild to moderate mitral valve regurgitation. 9. There is mild tricuspid valve regurgitation. Left Ventricle Left ventricular chamber dimension is normal. Left ventricular systolic function is normal, estimated at 65-70%. There is moderately increased left ventricular wall thickness. The left ventricular diastolic function is grade I diastolic dysfunction. Right Ventricle Right ventricular chamber dimension is normal. Right ventricular systolic function is normal. Left Atria Left atrial chamber dimension is moderately enlarged. Right Atria Right atrial chamber dimension is moderately enlarged. Atrial Septum Intact interatrial septum visualized by color flow imaging. Aortic Valve The aortic valve is probable trileaflet. There is no aortic valve stenosis. There is no aortic valve regurgitation. There is mild aortic valve calcification. Pulmonic Valve The pulmonic valve is not well visualized. There is no pulmonic regurgitation. Mitral Valve There is mild to moderate mitral valve regurgitation. The mitral valve annulus is moderately calcified. Tricuspid Valve There is mild tricuspid valve regurgitation. Pericardium/Pleural There is no pericardial effusion. Inferior Vena Cava Normal inferior vena cava with >50% collapse upon inspiration consistent with normal right atrial pressure, 3 mmHg. Aorta The aortic root size at the sinus of Valsalva is normal. Left Ventricular Outflow Tract Name Value Normal LVOT 2D LVOT Diameter 2.0 cm LVOT Doppler LVOT Peak Gradient 5 mmHg LVOT Mean Gradient 3 mmHg LVOT VTI 26 cm LVOT VTI/AV VTI Ratio 0.5 LVOT Stroke Volume 78 ml LVOT CO 4.1 l/min LVOT CI 2.1 l/min/m2 Pulmonic Valve Name Value Normal PV Doppler PV Peak Gradient 3 mmHg Mitral Valve Name Value Normal MV Doppler MV Decel Dare 577 cm/s2 MV PHT 84 ms MV Area (PHT) 2.6 cm2 4.0-5.0 MV Diastolic Function MV E Peak Velocity 167 cm/s MV A Peak Velocity 89 cm/s MV E/A 1.9 MV Decel Time 289 ms Tricuspid Valve Name Value Normal TV Regurgitation Doppler TR Peak Velocity 298 cm/s TR Peak Gradient 25 mmHg Estimated PAP/RSVP RA Pressure 3 mmHg <=5 PA Systolic Pressure 38 mmHg <36 RV Systolic Pressure 38 mmHg <36 Aorta Name Value Normal Ascending Aorta Ao Root Diameter (MM) 2.3 cm Ao Root Diam Index (MM) 1.2 cm/m2 Aortic Valve Name Value Normal AV Doppler AV Peak Velocity 221 cm/s AV Peak Gradient 18 mmHg AV Mean Gradient 9 mmHg AV VTI 52 cm AV Area (Cont Eq VTI) 1.5 cm2 >=3.0 AV Area (Cont Eq [place]) 1.6 cm2 AV Regurgitation 2D LVOT Area 3.1 cm2 Ventricles Name Value Normal LV Dimensions 2D/MM IVS Diastolic Thickness (2D) 1.3 cm 0.6-1.0 IVS Diastole Thickness (MM) 0.9 cm 0.6-0.9 LVID Diastole (2D) 4.8 cm 3.8-5.2 LVID Diastole (MM) 6.0 cm 3.8-5.2 LVIW Diastolic Thickness (2D) 1.3 cm 0.6-0.9 LVIW Diastolic Thickness (MM) 1.0 cm 0.6-0.9 LVID Systole (2D) 3.0 cm 2.2-3.5 LVID Systole (MM) 3.7 cm 2.2-3.5 LVOT Diameter 2.0 cm LV Mass (2D Cubed) 240.16 g 67.00-162.00 LV Mass Index (2D Cubed) 124 g/m2 43-95 Relative Wall Thickness (2D) 0.53 LV Mass (MM Cubed) 245.69 g 67.00-162.00 LV Mass Index (MM Cubed) 127 g/m2 43-95 Relative Wall Thickness (MM) 0.35 LV Fractional Shortening/Ejection Fraction 2D/MM LV Fractional Shortening (2D) 37 % 27-45 LV Fractional Shortening (MM) 38 % 27-45 LV EF (MM Teicholz) 67 % 54-74 LV EF (2D Teicholz) 67 % 54-74 LV Diastolic Volume (4C MOD) 113 ml LV EF (4C MOD) 67 % LV Diastolic Volume (2C MOD) 145 ml LV EF (2C MOD) 67 % LV Diastolic Volume (BP MOD) 129 ml 46-106 LV Diastolic Volume Index (BP MOD) 67 ml/m2 29-61 LV Systolic Volume (BP MOD) 42 ml 14-42 LV Systolic Volume Index (BP MOD) 22 ml/m2 8-24 LV EF (BP MOD) 67 % 54-74 LV Diastolic Length (4C) 9.6 cm LV Systolic Length (4C) 8.4 cm LV Stroke Volume (4C MOD) 76 ml Atria Name Value Normal LA Dimensions LA Dimension (MM) 4.9 cm 2.7-3.8 LA Volume (4C A-L) 68 ml LA Volume (BP A-L) 77 ml RA Dimensions RA Area (4C) 20.8 cm2 <=18.0 Report Signatures
[2024-03-25] MEDS: ALPRAZolam (*CRX) 0.5 MG TABLET PO ×3 (01:58→17:39)
[2024-03-25] MEDS: LEVOTHYROXINE SODIUM 50 MCG TABLET PO (06:12)
[2024-03-25] MEDS: DOCUSATE SODIUM 100 MG CAPSULE PO ×2 (06:12→17:39)
[2024-03-25 06:42] LABS: Basophils Absolute Auto 0.1 K/mm3 (0.0-0.1); Basophils Percent Auto 0.9 % (0.2-1.2); Eosinophils Absolute Auto 0.4 K/mm3 (0-0.3); Eosinophils Percent Auto 7.5 % (0-4.4); Hematocrit 27.4 % (37.0-47.0); Hemoglobin 8.3 g/dL (12.0-15.0); Immature Granulocyte Absolute 0.14 K/mm3 (0.00-0.031); Immature Granulocyte Percent A 2.5 % (0-0.5); Lymphocytes Percent Auto 14.5 % (18.3-44.2); Mean Corpuscular HGB Conc 30.3 g/dl (32-36); Mean Corpuscular Hemoglobin 28.7 pg (26-34); Mean Corpuscular Volume 94.8 fl (80-100); Mean Platelet Volume 9.8 fl (7.4-10.4); Monocytes Absolute Auto 0.7 K/mm3 (0.1-0.6); Monocytes Percent Auto 13.3 % (2.6-8.5); Neutrophils Absolute Auto 3.4 K/mm3 (1.3-6.7); Neutrophils Percent Auto 61.3 % (45.5-73.1); Platelet Count Result 152 k/mm3 (150-375); Red Blood Count 2.89 M/mm3 (4.2-5.4); Red Cell Distribution Width 17.9 % (11.5-14.5); White Blood Count 5.5 K/mm3 (4.5-10.0)
[2024-03-25 06:56] LABS: Albumin Level 3.2 g/dL (3.5-5.1); Anion Gap 5 mmol/L (4-12); Blood Urea Nitrogen 17 mg/dL (7-17); Calcium 8.5 mg/dL (8.4-10.2); Carbon Dioxide 32 mmol/L (22-30); Chloride 98 mmol/L (98-107); Estimated CRCL calculation 16 ml/min; Estimated Glomerular Filt Rate 14; Glucose 119 mg/dL (65-110); Magnesium 2.2 mg/dL (1.6-2.3); Phosphorus 3.2 mg/dL (2.5-4.5); Sodium 135 mmol/L (137-145)
[2024-03-25 07:27] LABS: Glucose Point of Care 137 mg/dl (65-105)
[2024-03-25] MEDS: LOSARTAN POTASSIUM 50 MG TABLET 100 MG PO (08:58)
[2024-03-25] MEDS: SEVELAMER CARBONATE 800 MG TABLET 2400 MG PO ×3 (08:58→17:36)
[2024-03-25] MEDS: PANTOPRAZOLE 40 MG TABLET PO (08:58)
[2024-03-25] MEDS: ASPIRIN 81 MG ENTERIC TABLET PO (08:59)
[2024-03-25] MEDS: FOLIC ACID 1 MG TABLET PO (08:59)
[2024-03-25] MEDS: lamoTRIgine 50 MG TABLET PO ×2 (08:59→21:00)
[2024-03-25] MEDS: cloNIDine HCL 0.1 MG TABLET PO ×2 (08:59→20:59)
[2024-03-25] MEDS: hydrALAZINE HCL 50 MG TABLET 100 MG PO ×3 (08:59→17:36)
[2024-03-25] MEDS: allopurinoL 100 MG TABLET PO (08:59)
[2024-03-25] MEDS: lamoTRIgine 100 MG TABLET PO ×2 (08:59→20:59)
[2024-03-25] MEDS: carvediloL 6.25 MG TABLET PO ×2 (08:59→21:00)
[2024-03-25] MEDS: NIFEdipine 30 MG TAB.ER.24 90 MG PO (08:59)
[2024-03-25] MEDS: levETIRAcetam 250 MG TABLET 750 MG PO (08:59)
[2024-03-25] MEDS: FUROSEMIDE 80 MG TABLET PO (08:59)
[2024-03-25] MEDS: rOPINIRole HCL 1 MG TABLET PO (09:00)
[2024-03-25] MEDS: AMOXICILLIN/CLAVULANATE K 500-125 MG TAB 1 TABLET PO ×2 (09:00→20:59)
[2024-03-25] MEDS: ANASTROZOLE (*CHEMO) 1 MG TABLET PO (09:00)
[2024-03-25] MEDS: INSULIN GLARGINE (*BKC) 100 UNITS/ML 6 UNITS SUB-Q (09:05)
--- NOTE | 2024-03-25 11:06 | ECG_ITS ---
Test Date: 2024-03-25 11:31:37 Measurements Intervals [place] Rate: 54 P: 87 MT: 249 QRS: 19 QRSD: 106 T: 251 QT: 527 QTc: 501 Interpretive Statements SINUS BRADYCARDIA WITH FIRST DEGREE AV BLOCK ST DEVIATION AND MODERATE T-WAVE ABNORMALITY, CONSIDER ANTEROLATERAL ISCHEMIA [-0.1+ mV T-WAVE IN V3-V6] MODERATE T-WAVE ABNORMALITY, CONSIDER INFERIOR ISCHEMIA Compared to ECG 03/24/2024 14:33:25 NO SIGNIFICANT CHANGES Electronically Signed On 03-25-2024 15:26:47 CDT by Haylee Vargas M.D.
[2024-03-25 11:26] LABS: Glucose Point of Care 160 mg/dl (65-105)
--- NOTE | 2024-03-25 11:34 | P.PNCA_ITS ---
Progress Note: A&P Assessment and Plan (1) Abnormal ECG: Code(s): R94.31 - Abnormal electrocardiogram [ECG] [EKG] Status: Acute Assessment and Plan: Cardiology reconsulted due to EKG changes. EKG 03/24 shows more prominent T wave inversions in the lateral leads, although improved compared to EKG 03/22. Repeat EKG this morning stable. Makenna reports occasional atypical lower chest tightness that occurs with breathing, however, no symptoms consistent with angina. Her blood pressures were quite elevated into the 200s systolics yesterday. Also requiring intermittent blood transfusions. Echocardiogram ord ered and pending. Recommend blood pressure control, optimization of anemia. (2) Troponin I above reference range: Code(s): R79.89 - Other specified abnormal findings of blood chemistry Status: Acute Assessment and Plan: In setting of ESRD, acute on chronic anemia (3) Uncontrolled hypertension: Code(s): I10 - Essential (primary) hypertension Status: Acute Assessment and Plan: Her blood pressures were quite elevated into the 200s systolics yesterday. Improved this morning to the 160s. Continue working on blood pressure control. (4) Pneumonia: Qualifiers: Laterality: unspecified laterality Lung location: unspecified part of lung Pneumonia type: due to unspecified organism Qualified Code(s): J18.9 - Pneumonia, unspecified organism Code(s): J18.9 - Pneumonia, unspecified organism Status: Acute Assessment and Plan: On antibiotics as per primary team. (5) End stage renal disease: Code(s): N18.6 - End stage renal disease Status: Chronic Assessment and Plan: Nephrology consulted. (6) Paroxysmal A-fib: Code(s): I48.0 - Paroxysmal atrial fibrillation Status: Acute Assessment and Plan: Continue Coreg. Not on anticoagulation, requiring blood transfusions (7) Acute on chronic anemia: Code(s): D64.9 - Anemia, unspecified Status: Acute Assessment and Plan: GI workup underway Subjective Date/time seen: 03/25/24 11:34 Interval history: Reason for visit: EKG changes HPI: This is a 68-year-old woman I am seeing at the request of the hospitalist because of troponin levels that have been found to be elevated out of normal range. She is not known to me prior to this consultation. She not have a history of coronary artery disease. This is a woman who is significantly ill with a end-stage renal disease and is on hemodialysis and is also significantly anemic. She of course has anemia of chronic disease with renal disease and also has had a recent GI bleed. She came into the hospital yesterday with symptoms of worsening chronic shortness of breath. She has electrocardiogram shows sinus rhythm with inferolateral nonspecific ST segment depression. She has no significant changes on her ECG from previous tracings. Troponin levels were sampled x3 sets are slightly elevated but essentially flat. Not having any chest pain pressure or heaviness when I came in the room to see her for this consultation she was sleeping upon awakening reports sets of generalized fatigue but no other complaints at this time. She has a history of atrial flutter which was treated by instructional assistant of the [facility] up in [place] with an ablation a couple of years ago. She states she has not had any recurrences of her arrhythmia since then and does follow with 1 of our cardiologists and offers local to here. There is no other cardiac history that she can recall. Date of service 03/25: Cardiology reconsulted due to EKG changes. EKG 03/24 shows more prominent T wave inversions in the lateral leads, although improved compared to EKG 03/22. Makenna reports occasional lower chest tightness that occurs with breathing. Her blood pressures were quite elevated into the 200s systolics yesterday. She states she feels better after getting her last blood transfusion. Review of Systems Review of Systems: All systems reviewed & are unremarkable except as noted in HPI and below (HPI) Exam Const: General: no acute distress Other: Chronically ill appearing female HENMT: Mouth: Yes dry mucous membranes Eyes: General: appearance normal, both eyes and all related structures Sclera: sclerae normal Resp: Effort & Inspection: normal respiratory effort Cardio: Rate: regular rate Rhythm: regular rhythm Heart sounds: no murmurs Neuro: Speech: normal speech Psych: Mental Status: mental status grossly normal Affect: normal affect Objective Data Vital Signs Vital Signs: Vital Signs - 24 hr 03/24/24 11:45 03/24/24 12:00 03/24/24 12:15 Temperature Pulse Rate 63 63 64 Respiratory Rate Blood Pressure 197/81 H 190/82 H 204/80 H Pulse Oximetry Oxygen Delivery 03/24/24 12:05 03/24/24 12:21 03/24/24 14:00 Temperature 36.6 C 36.6 C 35.9 C L Pulse Rate 63 64 67 Respiratory Rate 18 18 18 Blood Pressure 190/82 H 181/66 H Pulse Oximetry 100 Oxygen Delivery 03/24/24 13:21 03/24/24 14:32 03/24/24 12:30 Temperature 36.8 C 36.4 C Pulse Rate 66 70 64 Respiratory Rate 20 20 Blood Pressure 180/76 H 190/82 H 194/75 H Pulse Oximetry Oxygen Delivery 03/24/24 12:45 03/24/24 13:00 03/24/24 13:15 Temperature Pulse Rate 62 62 65 Respiratory Rate Blood Pressure 194/71 H 192/73 H 199/80 H Pulse Oximetry Oxygen Delivery 03/24/24 13:30 03/24/24 13:42 03/24/24 12:00 Temperature 36.8 C Pulse Rate 64 66 60 Respiratory Rate 18 Blood Pressure 201/78 H 200/80 H Pulse Oximetry Oxygen Delivery 03/24/24 16:00 03/24/24 20:00 03/24/24 21:01 Temperature 37.1 C Pulse Rate 60 61 Respiratory Rate 18 Blood Pressure 200/57 H Pulse Oximetry 100 96 Oxygen Delivery Room Air 03/25/24 05:15 03/24/24 20:00 03/25/24 00:00 Temperature 36.4 C L Pulse Rate 54 L 62 56 L Respiratory Rate 16 Blood Pressure 165/56 H Pulse Oximetry 99 Oxygen Delivery 03/25/24 04:00 03/25/24 08:00 03/25/24 08:00 Temperature Pulse Rate 55 L 54 L 54 L Respiratory Rate 16 Blood Pressure Pulse Oximetry 99 Oxygen Delivery Room Air Intake/Output Intake/Output: Intake & Output 03/22/24 03/23/24 03/24/24 03/25/24 23:59 23:59 23:59 23:59 Intake Total 837 2060 1130 300 Output Total 4000 0 4000 Balance -3163 2060 -2870 300 Meds/Results Medications: Active Medications Generic Name Dose Route Start Last Admin Trade Name Freq PRN Reason Stop Dose Admin Acetaminophen 650 mg 03/20/24 09:25 03/20/24 09:36 Acetaminophen 325 Mg Tablet PO 650 mg Q6H PRN Administration Mild Pain (1-3) or Fever Albuterol 2 puff 03/20/24 06:22 03/22/24 04:35 Albuterol Sulfate (*Sp) Aerosol 1 Puff INHALATION 2 puff Q6H PRN Administration Shortness Of Breath Or Wheezing Allopurinol 100 mg 03/20/24 08:00 03/25/24 08:59 Allopurinol 100 Mg Tablet PO 100 mg DAILY@0800 PHYLICIA Administration Alprazolam 0.5 mg 03/20/24 06:22 03/25/24 09:07 Alprazolam (*Crx) 0.5 Mg Tablet PO 0.5 mg QID PRN Administration Anxiety Amantadine HCl 100 mg 03/22/24 09:00 03/22/24 13:27 Amantadine Hcl 100 Mg Capsule PO 100 mg Mo@0900 PHYLICIA Administration Amoxicillin/Clavulanate Potassium 1 tablet 03/22/24 21:00 03/25/24 09:00 Amoxicillin/Clavulanate K 500-125 Mg Tab PO 03/26/24 21:01 1 tablet Q12HR PHYLICIA Administration Anastrozole 1 mg 03/20/24 09:00 03/25/24 09:00 Anastrozole (*Chemo) 1 Mg Tablet PO 1 mg DAILY PHYLICIA Administration Aspirin 81 mg 03/20/24 11:00 03/25/24 08:59 Aspirin 81 Mg Enteric Tablet PO 81 mg QAM PHYLICIA Administration Atorvastatin Calcium 20 mg 03/20/24 21:00 03/24/24 20:47 Atorvastatin 20 Mg Tablet PO 20 mg HS PHYLICIA Administration Carvedilol 6.25 mg 03/20/24 09:00 03/25/24 08:59 Carvedilol 6.25 Mg Tablet PO 6.25 mg Q12HR PHYLICIA Administration Clonidine HCl 0.1 mg 03/23/24 21:00 03/25/24 08:59 Clonidine Hcl 0.1 Mg Tablet PO 0.1 mg Q12HR PHYLICIA Administration Docusate Sodium 100 mg 03/20/24 06:25 03/25/24 06:12 Docusate Sodium 100 Mg Capsule PO 100 mg Q12H PHYLICIA Administration Fluticasone Propionate 1 spray 03/20/24 06:22 Fluticasone Propionate 0.05% Na Spr 16 Gm Btl (*Bkc) NASAL DAILY PRN allergies Folic Acid 1 mg 03/20/24 09:00 03/25/24 08:59 Folic Acid 1 Mg Tablet PO 1 mg DAILY PHYLIICA Administration Furosemide 80 mg 03/20/24 09:00 03/25/24 08:59 Furosemide 80 Mg Tablet PO 80 mg DAILY PHYLICIA Administration Hydralazine HCl 100 mg 03/20/24 08:00 03/25/24 08:59 Hydralazine Hcl 50 Mg Tablet PO 100 mg TIDWM PHYLICIA Administration Hydralazine HCl 10 mg 03/20/24 15:22 03/22/24 15:48 Hydralazine Hcl 20 Mg/Ml Vial IV PUSH 10 mg Q6HR PRN Administration Blood Pressure - High Albumin Human 50 mls @ 999 mls/hr 03/22/24 07:10 Albutein IVPB 04/21/24 07:09 Q10M PRN HYPOTENSION Insulin Glargine 6 units 03/20/24 09:00 03/25/24 09:05 Insulin Glargine (*Bkc) 100 Units/Ml SUB-Q 6 units DAILY PHYLICIA Administration Lamotrigine 100 mg 03/20/24 09:00 03/25/24 08:59 Lamotrigine 100 Mg Tablet PO 100 mg Q12HR PHYLICIA Administration Lamotrigine 50 mg 03/20/24 09:00 03/25/24 08:59 Lamotrigine 50 Mg Tablet PO 50 mg Q12HR PHYLICIA Administration Levetiracetam 750 mg 03/20/24 09:00 03/25/24 08:59 Levetiracetam 250 Mg Tablet PO 750 mg DAILY PHYLICIA Administration Levothyroxine Sodium 50 mcg 03/20/24 06:50 03/25/24 06:12 Levothyroxine Sodium 50 Mcg Tablet PO 50 mcg DAILY@0630 PHYLICIA Administration Losartan Potassium 100 mg 03/20/24 09:00 03/25/24 08:58 Losartan Potassium 50 Mg Tablet PO 100 mg DAILY PHYLICIA Administration Miscellaneous Information 0 each 03/20/24 07:00 03/25/24 03:56 Naloxegol [Movantik] 25 Mg Tablet- Nonformulary. Please Obtain A Home Supply If Possible. XX 04/19/24 06:59 Not Given CLARIFY PHYLICIA Miscellaneous Information 0 each 03/20/24 07:05 03/25/24 03:56 Vortioxetine- Nonformulary. Please Obtain A Home Supply If Possible. XX 04/19/24 07:04 Not Given CLARIFY PHYLICIA Montelukast Sodium 10 mg 03/20/24 21:00 03/24/24 20:48 Montelukast Sodium 10 Mg Tablet PO 10 mg HS PHYLICIA Administration Nifedipine 90 mg 03/21/24 09:00 03/25/24 08:59 Nifedipine 30 Mg Tab.Er.24 PO 90 mg DAILY PHYLICIA Administration Nitroglycerin 0.4 mg 03/20/24 10:10 03/20/24 10:37 Nitroglycerin Sl 0.4 Mg Tablet SUBLINGUAL 0.4 mg Q5MIN PRN Administration Chest Pain Non-Formulary Medication 25 mg 03/20/24 09:00 Naloxegol [Movantik] PO 04/19/24 08:59 DAILY PHYLICIA Non-Formulary Medication 20 mg 03/20/24 09:00 Vortioxetine [Trintellix] PO 04/19/24 08:59 DAILY PHYLICIA Oxycodone HCl 2.5 mg 03/20/24 06:49 03/24/24 20:48 Oxycodone Hcl (*Crx) 2.5 Mg Tab Ir PO 2.5 mg Q4H PRN Administration Pain (Scale Score 4-6) Oxycodone/Acetaminophen 1 tablet 03/20/24 06:48 03/24/24 20:48 Oxycodone/Acetaminophen (*Crx) 5-325 Mg Tablet PO 1 tablet Q4H PRN Administration Pain (Scale Score 4-6) Pantoprazole Sodium 40 mg 03/20/24 09:00 03/25/24 08:58 Pantoprazole 40 Mg Tablet PO 40 mg QAM PHYLICIA Administration Perflutren Lipid Microsphere 0 ml 03/24/24 19:26 Perflutren Lipid Microspheres 1.5 Ml Vial Diluted To 10 Ml Total Volume IV PUSH 03/27/24 19:26 ONCE PRN adequate visualization Protocol Polyethylene Glycol 17 gm 03/20/24 06:22 Polyethylene Glycol 3350 17 Gm Powd.Pack PO BID PRN Constipation Ropinirole HCl 1 mg 03/20/24 09:00 03/25/24 09:00 Ropinirole Hcl 1 Mg Tablet PO 1 mg QAM PHYLICIA Administration Ropinirole HCl 1.5 mg 03/20/24 21:00 03/24/24 20:47 Ropinirole Hcl 0.5 Mg Tablet PO 1.5 mg HS PHYLICIA Administration Sevelamer Carbonate 2,400 mg 03/20/24 08:00 03/25/24 08:58 Sevelamer Carbonate 800 Mg Tablet PO 2,400 mg TIDWM PHYLICIA Administration Tizanidine HCl 4 mg 03/20/24 06:22 Tizanidine Hcl 4 Mg Tablet PO BID PRN Muscle Spasm Radiology Results: ITS Impressions Chest X-Ray 03/24/24 15:05 IMPRESSION: 1. Decreasing mild pulmonary edema. 2. Small bilateral pleural effusions with associated basilar atelectasis and/or pneumonia. Labs Labs: Laboratory Results - last 24 hr 03/22/24 03/24/24 03/24/24 08:09 16:11 19:47 WBC RBC Hgb Hct MCV MCH MCHC RDW Plt Count MPV Immature Gran % (Auto) Neut % (Auto) Lymph % (Auto) [place] % (Auto) Eos % (Auto) Baso % (Auto) Lymph # (Auto) [place] # (Auto) Eos # (Auto) Baso # (Auto) Abs Immat Gran (auto) Absolute Neuts (auto) Absolute Nucleated RBC Nucleated RBC % Sodium Potassium Chloride Carbon Dioxide Anion Gap BUN Creatinine Estim Creat Clear Calc Estimated GFR Glucose POC Capillary Glucose 210 H 173 H Calcium Phosphorus Magnesium Albumin Blood Type O Positive Antibody Screen Positive Antibody Identification Anti-Cherry Antigen Identification Cherry Antigen - NEGATIVE ANIVAL, IgG Interpret Positive ANIVAL, Complement Interp Negative Enhanced Crossmatch See Detail 03/25/24 03/25/24 03/25/24 06:13 07:25 11:24 WBC 5.5 RBC 2.89 L Hgb 8.3 L Hct 27.4 L MCV 94.8 MCH 28.7 MCHC 30.3 L RDW 17.9 H Plt Count 152 MPV 9.8 Immature Gran % (Auto) 2.5 H Neut % (Auto) 61.3 Lymph % (Auto) 14.5 L [place] % (Auto) 13.3 H Eos % (Auto) 7.5 H Baso % (Auto) 0.9 Lymph # (Auto) 0.80 L [place] # (Auto) 0.7 H Eos # (Auto) 0.4 H Baso # (Auto) 0.1 Abs Immat Gran (auto) 0.14 H Absolute Neuts (auto) 3.4 Absolute Nucleated RBC 0.000 Nucleated RBC % 0.0 Sodium 135 L Potassium 4.0 Chloride 98 Carbon Dioxide 32 H Anion Gap 5 BUN 17 Creatinine 3.20 H Estim Creat Clear Calc 16 Estimated GFR 14 L Glucose 119 H POC Capillary Glucose 137 H 160 H Calcium 8.5 Phosphorus 3.2 Magnesium 2.2 Albumin 3.2 L Blood Type Antibody Screen Antibody Identification Antigen Identification ANIVAL, IgG Interpret ANIVAL, Complement Interp Enhanced Crossmatch
--- NOTE | 2024-03-25 14:55 | P.PNNP_ITS ---
Progress Note: A&P Assessment and Plan (1) End stage renal disease: Code(s): N18.6 - End stage renal disease Status: Chronic Assessment and Plan: * HD tomorrow * continue outpatient dialysis schedule of // * follow electrolytes, volume status, and clearance (2) Pneumonia: Qualifiers: Laterality: unspecified laterality Lung location: unspecified part of lung Pneumonia type: due to unspecified organism Qualified Code(s): J18.9 - Pneumonia, unspecified organism Code(s): J18.9 - Pneumonia, unspecified organism Status: Acute Assessment and Plan: * as suggested by admission imaging * follow respiratory status (stable at this time) * follow culture data - negative to date * on antibiotics * continue supportive therapy (3) Hypertension: Qualifiers: Hypertension type: secondary to other renal disorders Qualified Code(s): I15.1 - Hypertension secondary to other renal disorders; N28.89 - Other specified disorders of kidney and ureter Code(s): I10 - Essential (primary) hypertension Status: Acute Assessment and Plan: * elevated on presentation * seems to fluctuate to extremes * being more aggressive with ultrafiltration with HD to see if that helps * resumed home medications * follow trend of hemodynamics (4) Anemia: Qualifiers: Anemia type: due to chronic kidney disease Chronic kidney disease stage: on chronic dialysis Qualified Code(s): N18.6 - End stage renal disease; D63.1 - Anemia in chronic kidney disease; Z99.2 - Dependence on renal dialysis Code(s): D64.9 - Anemia, unspecified Status: Acute Assessment and Plan: * partly related to ESRD * however, recurrent issues with anemia requiring PRBC transfusion on previous hospitalization * 4 units transfused during January 2024 hospitalization * prior GI work-up noted * Epogen/Retacrit with HD * GI and Hem/Onc recommendations noted * PRBC transfusion with HD on 03/24 * follow trend on H/H (5) Paroxysmal A-fib: Code(s): I48.0 - Paroxysmal atrial fibrillation Status: Acute Assessment and Plan: * stable at this time * no anticoagulation due to recurrent/chronic anemia (6) Generalized weakness: Code(s): R53.1 - Weakness Status: Acute Assessment and Plan: * as noted on admission * possibly partly related to anemia and recent operative procedure (left arm AV access placement) * PT/OT as tolerated Will continue to follow. Subjective Date/time seen: 03/25/24 14:55 Interval history: Follow-up for end stage renal disease on hemodialysis. Tolerated dialysis treatment yesterday with PRBC transfusion without any issues or problems; H/H incremented appropriately with blood transfusion; ambulating in room and hallways with walker and assistance with PT/OT; no apparent distress noted. Exam Narrative: General: elderly but WD/WN female in NAD Heart: normal S1 and S2; no rub Lungs: decreased breath sounds at bases Abdomen: soft, mild TTP, nondistended, positive bowel sounds Extremities: no cyanosis or clubbing; no edema Skin: warm and dry Objective Data Vital Signs Vital Signs: Vital Signs Temp Pulse Resp BP Pulse Ox O2 Del Method 03/25/24 08:00 54 L 16 99 Room Air 03/25/24 08:00 54 L 03/25/24 04:00 55 L 03/25/24 00:00 56 L 03/24/24 20:00 62 03/25/24 05:15 97.5 F L 54 L 16 165/56 H 99 03/24/24 21:01 98.8 F 61 18 200/57 H 96 03/24/24 20:00 100 Room Air 03/24/24 16:00 60 Intake/Output Intake/Output: Intake & Output 03/22/24 03/23/24 03/24/24 03/25/24 23:59 23:59 23:59 23:59 Intake Total 837 2060 1130 540 Output Total 4000 0 4000 Balance -3163 2060 -2870 540 Meds/Results Medications: Active Medications Generic Name Dose Route Start Last Admin Trade Name Freq PRN Reason Stop Dose Admin Acetaminophen 650 mg 03/20/24 09:25 03/20/24 09:36 Acetaminophen 325 Mg Tablet PO 650 mg Q6H PRN Administration Mild Pain (1-3) or Fever Albuterol 2 puff 03/20/24 06:22 03/22/24 04:35 Albuterol Sulfate (*Sp) Aerosol 1 Puff INHALATION 2 puff Q6H PRN Administration Shortness Of Breath Or Wheezing Allopurinol 100 mg 03/20/24 08:00 03/25/24 08:59 Allopurinol 100 Mg Tablet PO 100 mg DAILY@0800 PHYLICIA Administration Alprazolam 0.5 mg 03/20/24 06:22 03/25/24 09:07 Alprazolam (*Crx) 0.5 Mg Tablet PO 0.5 mg QID PRN Administration Anxiety Amantadine HCl 100 mg 03/22/24 09:00 03/22/24 13:27 Amantadine Hcl 100 Mg Capsule PO 100 mg Mo@0900 PHYLICIA Administration Amoxicillin/Clavulanate Potassium 1 tablet 03/22/24 21:00 03/25/24 09:00 Amoxicillin/Clavulanate K 500-125 Mg Tab PO 03/26/24 21:01 1 tablet Q12HR PHYLICIA Administration Anastrozole 1 mg 03/20/24 09:00 03/25/24 09:00 Anastrozole (*Chemo) 1 Mg Tablet PO 1 mg DAILY PHYLICIA Administration Aspirin 81 mg 03/20/24 11:00 03/25/24 08:59 Aspirin 81 Mg Enteric Tablet PO 81 mg QAM PHYLICIA Administration Atorvastatin Calcium 20 mg 03/20/24 21:00 03/24/24 20:47 Atorvastatin 20 Mg Tablet PO 20 mg HS PHYLICIA Administration Carvedilol 6.25 mg 03/20/24 09:00 03/25/24 08:59 Carvedilol 6.25 Mg Tablet PO 6.25 mg Q12HR PHYLICIA Administration Clonidine HCl 0.1 mg 03/23/24 21:00 03/25/24 08:59 Clonidine Hcl 0.1 Mg Tablet PO 0.1 mg Q12HR PHYLICIA Administration Docusate Sodium 100 mg 03/20/24 06:25 03/25/24 06:12 Docusate Sodium 100 Mg Capsule PO 100 mg Q12H PHYLICIA Administration Fluticasone Propionate 1 spray 03/20/24 06:22 Fluticasone Propionate 0.05% Na Spr 16 Gm Btl (*Bkc) NASAL DAILY PRN allergies Folic Acid 1 mg 03/20/24 09:00 03/25/24 08:59 Folic Acid 1 Mg Tablet PO 1 mg DAILY PHYLICIA Administration Furosemide 80 mg 03/20/24 09:00 03/25/24 08:59 Furosemide 80 Mg Tablet PO 80 mg DAILY PHYLICIA Administration Hydralazine HCl 100 mg 03/20/24 08:00 03/25/24 13:38 Hydralazine Hcl 50 Mg Tablet PO 100 mg TIDWM PHYLICIA Administration Hydralazine HCl 10 mg 03/20/24 15:22 03/22/24 15:48 Hydralazine Hcl 20 Mg/Ml Vial IV PUSH 10 mg Q6HR PRN Administration Blood Pressure - High Albumin Human 50 mls @ 999 mls/hr 03/22/24 07:10 Albutein IVPB 04/21/24 07:09 Q10M PRN HYPOTENSION Insulin Glargine 6 units 03/20/24 09:00 03/25/24 09:05 Insulin Glargine (*Bkc) 100 Units/Ml SUB-Q 6 units DAILY PHYLICIA Administration Lamotrigine 100 mg 03/20/24 09:00 03/25/24 08:59 Lamotrigine 100 Mg Tablet PO 100 mg Q12HR PHYLICIA Administration Lamotrigine 50 mg 03/20/24 09:00 03/25/24 08:59 Lamotrigine 50 Mg Tablet PO 50 mg Q12HR PHYLICIA Administration Levetiracetam 750 mg 03/20/24 09:00 03/25/24 08:59 Levetiracetam 250 Mg Tablet PO 750 mg DAILY PHYLICIA Administration Levothyroxine Sodium 50 mcg 03/20/24 06:50 03/25/24 06:12 Levothyroxine Sodium 50 Mcg Tablet PO 50 mcg DAILY@0630 PHYLICIA Administration Losartan Potassium 100 mg 03/20/24 09:00 03/25/24 08:58 Losartan Potassium 50 Mg Tablet PO 100 mg DAILY PHYLICIA Administration Miscellaneous Information 0 each 03/20/24 07:00 03/25/24 03:56 Naloxegol [Movantik] 25 Mg Tablet- Nonformulary. Please Obtain A Home Supply If Possible. XX 04/19/24 06:59 Not Given CLARIFY PHYLICIA Miscellaneous Information 0 each 03/20/24 07:05 03/25/24 03:56 Vortioxetine- Nonformulary. Please Obtain A Home Supply If Possible. XX 04/19/24 07:04 Not Given CLARIFY PHYLICIA Montelukast Sodium 10 mg 03/20/24 21:00 03/24/24 20:48 Montelukast Sodium 10 Mg Tablet PO 10 mg HS PHYLICIA Administration Nifedipine 90 mg 03/21/24 09:00 03/25/24 08:59 Nifedipine 30 Mg Tab.Er.24 PO 90 mg DAILY PHYLICIA Administration Nitroglycerin 0.4 mg 03/20/24 10:10 03/20/24 10:37 Nitroglycerin Sl 0.4 Mg Tablet SUBLINGUAL 0.4 mg Q5MIN PRN Administration Chest Pain Non-Formulary Medication 25 mg 03/20/24 09:00 Naloxegol [Movantik] PO 04/19/24 08:59 DAILY PHYLICIA Non-Formulary Medication 20 mg 03/20/24 09:00 Vortioxetine [Trintellix] PO 04/19/24 08:59 DAILY PHYLICIA Oxycodone HCl 2.5 mg 03/20/24 06:49 03/24/24 20:48 Oxycodone Hcl (*Crx) 2.5 Mg Tab Ir PO 2.5 mg Q4H PRN Administration Pain (Scale Score 4-6) Oxycodone/Acetaminophen 1 tablet 03/20/24 06:48 03/24/24 20:48 Oxycodone/Acetaminophen (*Crx) 5-325 Mg Tablet PO 1 tablet Q4H PRN Administration Pain (Scale Score 4-6) Pantoprazole Sodium 40 mg 03/20/24 09:00 03/25/24 08:58 Pantoprazole 40 Mg Tablet PO 40 mg QAM PHYLICIA Administration Perflutren Lipid Microsphere 0 ml 03/24/24 19:26 Perflutren Lipid Microspheres 1.5 Ml Vial Diluted To 10 Ml Total Volume IV PUSH 03/27/24 19:26 ONCE PRN adequate visualization Protocol Polyethylene Glycol 17 gm 03/20/24 06:22 Polyethylene Glycol 3350 17 Gm Powd.Pack PO BID PRN Constipation Ropinirole HCl 1 mg 03/20/24 09:00 03/25/24 09:00 Ropinirole Hcl 1 Mg Tablet PO 1 mg QAM PHYLICIA Administration Ropinirole HCl 1.5 mg 03/20/24 21:00 03/24/24 20:47 Ropinirole Hcl 0.5 Mg Tablet PO 1.5 mg HS PHYLICIA Administration Sevelamer Carbonate 2,400 mg 03/20/24 08:00 03/25/24 13:38 Sevelamer Carbonate 800 Mg Tablet PO 2,400 mg TIDWM PHYLICIA Administration Tizanidine HCl 4 mg 03/20/24 06:22 Tizanidine Hcl 4 Mg Tablet PO BID PRN Muscle Spasm Radiology Results: ITS Impressions Chest X-Ray 03/24/24 15:05 IMPRESSION: 1. Decreasing mild pulmonary edema. 2. Small bilateral pleural effusions with associated basilar atelectasis and/or pneumonia. Labs Labs: Laboratory Tests 03/25/24 06:13 03/25/24 06:13 Calcium 8.5 Phosphorus 3.2 Magnesium 2.2 Albumin 3.2 L
--- NOTE | 2024-03-25 15:30 | P.PNIM_ITS ---
Progress Note: A&P Assessment and Plan (1) Pneumonia: Qualifiers: Laterality: unspecified laterality Lung location: unspecified part of lung Pneumonia type: due to unspecified organism Qualified Code(s): J18.9 - Pneumonia, unspecified organism Code(s): J18.9 - Pneumonia, unspecified organism Status: Acute Assessment and Plan: Patient presents with shortness of breath which has been worsening over the past few days. Normal WBC at 9. Chest x-ray showed right basilar pneumonia. Ceftriaxone and doxycycline ordered after cultures obtained. BCx NGTD. Sputum culture TNP. Repeat CXR showing decrease in mild pulm edema and small effusions and associated airspace disease. Antibiotics switched to oral to complete a course (2) Troponin I above reference range: Code(s): R79.89 - Other specified abnormal findings of blood chemistry Status: Acute Assessment and Plan: EKG showed sinus rhythm with 1st degree AVB, moderate ST depression and prolonged QT (QTc 529). Troponin elevated to 0.236 before trending down. BNP more than 30,000. Cardiology was consulted. Repeat EKG now showing marked ST depression with T wave inversion lateral leads. Cardiology reconsulted and Echo ordered. Echo showing normal LV size and fxn (EF 65-70%) with moderate wall thickening, Grade I diastolic dysfxn, normal RV, moderate bi-atrial enlargement, mild TR and mild-moderate MR. No significant wall motion abnormalities. EKG changes related to strain? Monitor on tele. Ischemia evaluation difficult given her unexplained anemia. Tolerating ASA. (3) Uncontrolled hypertension: Code(s): I10 - Essential (primary) hypertension Status: Acute Assessment and Plan: Hypertension uncontrolled on admission. Currently on Procardia, hydralazine, losartan, Coreg and clonidine which will be uptitrated to 0.1 Q12h. Consider minoxidil. Defer to nephrology. (4) Anemia in ESRD (end-stage renal disease): Code(s): N18.6 - End stage renal disease; D63.1 - Anemia in chronic kidney disease Status: Acute Assessment and Plan: Chronic anemia: Hemoglobin around 7-8 and no signs of active bleeding. Anemia worsened down to 6.9 and transfused 1 unit PRBC. However had antibody and did not receive. Repeat Hgb 6.7 yesterday and received 1U. GI consulted. Gastric polyp previously evaluated by EGD on 01/13/2024. Noninvasive reflux disease/gastritis / esophagitis currently on PPI Plan for video capsule endoscopy as outpatient Hematology was consulted. Repeat Hgb better. Follow for stability (5) End stage renal disease: Code(s): N18.6 - End stage renal disease Status: Chronic Assessment and Plan: End-stage renal disease on hemodialysis Friday Nephrology consulted. Continue HD (6) Generalized weakness: Code(s): R53.1 - Weakness Status: Acute Assessment and Plan: PT/OT started. walking in halls. (7) Paroxysmal A-fib: Code(s): I48.0 - Paroxysmal atrial fibrillation Status: Acute Assessment and Plan: Stable with EKG showing NSR. Monitor on tele. No anticoagulation due to anemia Plan Anxiety depression/bipolar disorder Breast cancer status post lumpectomy Coronary artery disease Gastroparesis Tardive dyskinesia KACIE History of peptic ulcer Neuropathy DVT prophylaxis SCDs Code status full code Subjective Date/time seen: 03/25/24 15:30 Interval history: 68yo female with ESRD on HD, DM, HTNm CAD, Gastroparesis and bipolar disorder here for shortness of breath. Zulema nausea lst night treated with Xanax. She can't take Zofran given her known long QT. Did well with HD yesterday. Did well with the blood transfusion as well. Chest tightness with coughing. Walking out in the halls with walker. C 2-3 years ago but no ischemia evaluation since that time Exam Narrative: AF 97.5 165/56 54 16 99% ra Gen - NARD Chest - Rt upper chest HD tunneled catheter in place. minimal crackles in the bases CV - RRR S1/S2 2/6 systolic murmur USB. Tele showing PVCs Abd - Soft, ND, diffusely tender but no guarding orrebound. Ext - No pedal edema. Left UE fistula thrill/bruit. RUE defunct fistula Psych - Nml mood and affect Skin - Warm and dry Objective Data Vital Signs Vital Signs: Vital Signs - 24 hr 03/24/24 16:00 03/24/24 20:00 03/24/24 21:01 Temperature 98.8 F Pulse Rate 60 61 Respiratory Rate 18 Blood Pressure 200/57 H Pulse Oximetry 100 96 Oxygen Delivery Room Air 03/25/24 05:15 03/24/24 20:00 03/25/24 00:00 Temperature 97.5 F L Pulse Rate 54 L 62 56 L Respiratory Rate 16 Blood Pressure 165/56 H Pulse Oximetry 99 Oxygen Delivery 03/25/24 04:00 03/25/24 08:00 03/25/24 08:00 Temperature Pulse Rate 55 L 54 L 54 L Respiratory Rate 16 Blood Pressure Pulse Oximetry 99 Oxygen Delivery Room Air Intake/Output Intake/Output: Intake & Output 03/22/24 03/23/24 03/24/24 03/25/24 23:59 23:59 23:59 23:59 Intake Total 837 2060 1130 540 Output Total 4000 0 4000 Balance -3163 2060 -2870 540 Meds/Results Medications: Active Medications Generic Name Dose Route Start Last Admin Trade Name Freq PRN Reason Stop Dose Admin Acetaminophen 650 mg 03/20/24 09:25 03/20/24 09:36 Acetaminophen 325 Mg Tablet PO 650 mg Q6H PRN Administration Mild Pain (1-3) or Fever Albuterol 2 puff 03/20/24 06:22 03/22/24 04:35 Albuterol Sulfate (*Sp) Aerosol 1 Puff INHALATION 2 puff Q6H PRN Administration Shortness Of Breath Or Wheezing Allopurinol 100 mg 03/20/24 08:00 03/25/24 08:59 Allopurinol 100 Mg Tablet PO 100 mg DAILY@0800 PHYLICIA Administration Alprazolam 0.5 mg 03/20/24 06:22 03/25/24 09:07 Alprazolam (*Crx) 0.5 Mg Tablet PO 0.5 mg QID PRN Administration Anxiety Amantadine HCl 100 mg 03/22/24 09:00 03/22/24 13:27 Amantadine Hcl 100 Mg Capsule PO 100 mg Mo@0900 PHYLICIA Administration Amoxicillin/Clavulanate Potassium 1 tablet 03/22/24 21:00 03/25/24 09:00 Amoxicillin/Clavulanate K 500-125 Mg Tab PO 03/26/24 21:01 1 tablet Q12HR PHYLICIA Administration Anastrozole 1 mg 03/20/24 09:00 03/25/24 09:00 Anastrozole (*Chemo) 1 Mg Tablet PO 1 mg DAILY PHYLICIA Administration Aspirin 81 mg 03/20/24 11:00 03/25/24 08:59 Aspirin 81 Mg Enteric Tablet PO 81 mg QAM PHYLICIA Administration Atorvastatin Calcium 20 mg 03/20/24 21:00 03/24/24 20:47 Atorvastatin 20 Mg Tablet PO 20 mg HS PHYLICIA Administration Carvedilol 6.25 mg 03/20/24 09:00 03/25/24 08:59 Carvedilol 6.25 Mg Tablet PO 6.25 mg Q12HR PHYLICIA Administration Clonidine HCl 0.1 mg 03/23/24 21:00 03/25/24 08:59 Clonidine Hcl 0.1 Mg Tablet PO 0.1 mg Q12HR PHYLICIA Administration Docusate Sodium 100 mg 03/20/24 06:25 03/25/24 06:12 Docusate Sodium 100 Mg Capsule PO 100 mg Q12H PHYLICIA Administration Fluticasone Propionate 1 spray 03/20/24 06:22 Fluticasone Propionate 0.05% Na Spr 16 Gm Btl (*Bkc) NASAL DAILY PRN allergies Folic Acid 1 mg 03/20/24 09:00 03/25/24 08:59 Folic Acid 1 Mg Tablet PO 1 mg DAILY PHYLICIA Administration Furosemide 80 mg 03/20/24 09:00 03/25/24 08:59 Furosemide 80 Mg Tablet PO 80 mg DAILY PHYLICIA Administration Hydralazine HCl 100 mg 03/20/24 08:00 03/25/24 13:38 Hydralazine Hcl 50 Mg Tablet PO 100 mg TIDWM PHYLICIA Administration Hydralazine HCl 10 mg 03/20/24 15:22 03/22/24 15:48 Hydralazine Hcl 20 Mg/Ml Vial IV PUSH 10 mg Q6HR PRN Administration Blood Pressure - High Albumin Human 50 mls @ 999 mls/hr 03/22/24 07:10 Albutein IVPB 04/21/24 07:09 Q10M PRN HYPOTENSION Insulin Glargine 6 units 03/20/24 09:00 03/25/24 09:05 Insulin Glargine (*Bkc) 100 Units/Ml SUB-Q 6 units DAILY PHYLICIA Administration Lamotrigine 100 mg 03/20/24 09:00 03/25/24 08:59 Lamotrigine 100 Mg Tablet PO 100 mg Q12HR PHYLICIA Administration Lamotrigine 50 mg 03/20/24 09:00 03/25/24 08:59 Lamotrigine 50 Mg Tablet PO 50 mg Q12HR PHYLICIA Administration Levetiracetam 750 mg 03/20/24 09:00 03/25/24 08:59 Levetiracetam 250 Mg Tablet PO 750 mg DAILY PHYLICIA Administration Levothyroxine Sodium 50 mcg 03/20/24 06:50 03/25/24 06:12 Levothyroxine Sodium 50 Mcg Tablet PO 50 mcg DAILY@0630 PHYLICIA Administration Losartan Potassium 100 mg 03/20/24 09:00 03/25/24 08:58 Losartan Potassium 50 Mg Tablet PO 100 mg DAILY PHYLICIA Administration Miscellaneous Information 0 each 03/20/24 07:00 03/25/24 03:56 Naloxegol [Movantik] 25 Mg Tablet- Nonformulary. Please Obtain A Home Supply If Possible. XX 04/19/24 06:59 Not Given CLARIFY PHYLICIA Miscellaneous Information 0 each 03/20/24 07:05 03/25/24 03:56 Vortioxetine- Nonformulary. Please Obtain A Home Supply If Possible. XX 04/19/24 07:04 Not Given CLARIFY PHYLICIA Montelukast Sodium 10 mg 03/20/24 21:00 03/24/24 20:48 Montelukast Sodium 10 Mg Tablet PO 10 mg HS PHYLICIA Administration Nifedipine 90 mg 03/21/24 09:00 03/25/24 08:59 Nifedipine 30 Mg Tab.Er.24 PO 90 mg DAILY PHYLICIA Administration Nitroglycerin 0.4 mg 03/20/24 10:10 03/20/24 10:37 Nitroglycerin Sl 0.4 Mg Tablet SUBLINGUAL 0.4 mg Q5MIN PRN Administration Chest Pain Non-Formulary Medication 25 mg 03/20/24 09:00 Naloxegol [Movantik] PO 04/19/24 08:59 DAILY PHYLICIA Non-Formulary Medication 20 mg 03/20/24 09:00 Vortioxetine [Trintellix] PO 04/19/24 08:59 DAILY PHYLICIA Oxycodone HCl 2.5 mg 03/20/24 06:49 03/24/24 20:48 Oxycodone Hcl (*Crx) 2.5 Mg Tab Ir PO 2.5 mg Q4H PRN Administration Pain (Scale Score 4-6) Oxycodone/Acetaminophen 1 tablet 03/20/24 06:48 03/24/24 20:48 Oxycodone/Acetaminophen (*Crx) 5-325 Mg Tablet PO 1 tablet Q4H PRN Administration Pain (Scale Score 4-6) Pantoprazole Sodium 40 mg 03/20/24 09:00 03/25/24 08:58 Pantoprazole 40 Mg Tablet PO 40 mg QAM PHYLICIA Administration Perflutren Lipid Microsphere 0 ml 03/24/24 19:26 Perflutren Lipid Microspheres 1.5 Ml Vial Diluted To 10 Ml Total Volume IV PUSH 03/27/24 19:26 ONCE PRN adequate visualization Protocol Polyethylene Glycol 17 gm 03/20/24 06:22 Polyethylene Glycol 3350 17 Gm Powd.Pack PO BID PRN Constipation Ropinirole HCl 1 mg 03/20/24 09:00 03/25/24 09:00 Ropinirole Hcl 1 Mg Tablet PO 1 mg QAM PHYLICIA Administration Ropinirole HCl 1.5 mg 03/20/24 21:00 03/24/24 20:47 Ropinirole Hcl 0.5 Mg Tablet PO 1.5 mg HS PHYLICIA Administration Sevelamer Carbonate 2,400 mg 03/20/24 08:00 03/25/24 13:38 Sevelamer Carbonate 800 Mg Tablet PO 2,400 mg TIDWM PHYLICIA Administration Tizanidine HCl 4 mg 03/20/24 06:22 Tizanidine Hcl 4 Mg Tablet PO BID PRN Muscle Spasm Radiology Results: ITS Impressions Chest X-Ray 03/24/24 15:05 IMPRESSION: 1. Decreasing mild pulmonary edema. 2. Small bilateral pleural effusions with associated basilar atelectasis and/or pneumonia. Labs Labs: Laboratory Results - last 24 hr 03/24/24 03/24/24 03/25/24 16:11 19:47 06:13 WBC 5.5 RBC 2.89 L Hgb 8.3 L Hct 27.4 L MCV 94.8 MCH 28.7 MCHC 30.3 L RDW 17.9 H Plt Count 152 MPV 9.8 Immature Gran % (Auto) 2.5 H Neut % (Auto) 61.3 Lymph % (Auto) 14.5 L [place] % (Auto) 13.3 H Eos % (Auto) 7.5 H Baso % (Auto) 0.9 Lymph # (Auto) 0.80 L [place] # (Auto) 0.7 H Eos # (Auto) 0.4 H Baso # (Auto) 0.1 Abs Immat Gran (auto) 0.14 H Absolute Neuts (auto) 3.4 Absolute Nucleated RBC 0.000 Nucleated RBC % 0.0 Sodium 135 L Potassium 4.0 Chloride 98 Carbon Dioxide 32 H Anion Gap 5 BUN 17 Creatinine 3.20 H Estim Creat Clear Calc 16 Estimated GFR 14 L Glucose 119 H POC Capillary Glucose 210 H 173 H Calcium 8.5 Phosphorus 3.2 Magnesium 2.2 Albumin 3.2 L 03/25/24 03/25/24 07:25 11:24 WBC RBC Hgb Hct MCV MCH MCHC RDW Plt Count MPV Immature Gran % (Auto) Neut % (Auto) Lymph % (Auto) [place] % (Auto) Eos % (Auto) Baso % (Auto) Lymph # (Auto) [place] # (Auto) Eos # (Auto) Baso # (Auto) Abs Immat Gran (auto) Absolute Neuts (auto) Absolute Nucleated RBC Nucleated RBC % Sodium Potassium Chloride Carbon Dioxide Anion Gap BUN Creatinine Estim Creat Clear Calc Estimated GFR Glucose POC Capillary Glucose 137 H 160 H Calcium Phosphorus Magnesium Albumin
[2024-03-25 17:17] LABS: Glucose Point of Care 118 mg/dl (65-105)
[2024-03-25 20:38] LABS: Glucose Point of Care 129 mg/dl (65-105)
[2024-03-25] MEDS: oxyCODONE/ACETAMINOPHEN (*CRX) 5-325 MG TABLET 1 TABLET PO (20:48)
[2024-03-25] MEDS: rOPINIRole HCL 0.5 MG TABLET 1.5 MG PO (20:59)
[2024-03-25] MEDS: MONTELUKAST SODIUM 10 MG TABLET PO (20:59)
[2024-03-25] MEDS: ATORVASTATIN 20 MG TABLET PO (21:00)
[2024-03-25] MEDS: oxyCODONE HCL (*CRX) 2.5 MG TAB IR PO (21:12)
[2024-03-26] VITALS (28 sets, daily range): BP systolic 180–230; BP diastolic 55–84; PULSE 54–67; RESP 16–20; TEMP 36.3–37.6; O2SAT 97–100; BMI 24.7
[2024-03-26] MEDS: ALPRAZolam (*CRX) 0.5 MG TABLET PO ×4 (01:47→19:58)
[2024-03-26] MEDS: LEVOTHYROXINE SODIUM 50 MCG TABLET PO (06:40)
[2024-03-26] MEDS: DOCUSATE SODIUM 100 MG CAPSULE PO ×2 (06:40→16:31)
[2024-03-26] MEDS: hydrALAZINE HCL 50 MG TABLET 100 MG PO ×3 (07:57→16:31)
[2024-03-26] MEDS: lamoTRIgine 50 MG TABLET PO ×2 (07:57→19:57)
[2024-03-26] MEDS: FOLIC ACID 1 MG TABLET PO (07:57)
[2024-03-26] MEDS: SEVELAMER CARBONATE 800 MG TABLET 2400 MG PO ×3 (07:57→16:31)
[2024-03-26] MEDS: NIFEdipine 30 MG TAB.ER.24 90 MG PO (07:58)
[2024-03-26] MEDS: lamoTRIgine 100 MG TABLET PO ×2 (07:58→19:59)
[2024-03-26] MEDS: levETIRAcetam 250 MG TABLET 750 MG PO (07:58)
[2024-03-26] MEDS: LOSARTAN POTASSIUM 50 MG TABLET 100 MG PO (07:58)
[2024-03-26] MEDS: ANASTROZOLE (*CHEMO) 1 MG TABLET PO (07:59)
[2024-03-26] MEDS: allopurinoL 100 MG TABLET PO (07:59)
[2024-03-26] MEDS: ASPIRIN 81 MG ENTERIC TABLET PO (07:59)
[2024-03-26] MEDS: FUROSEMIDE 80 MG TABLET PO (07:59)
[2024-03-26] MEDS: PANTOPRAZOLE 40 MG TABLET PO ×2 (07:59→19:58)
[2024-03-26] MEDS: AMOXICILLIN/CLAVULANATE K 500-125 MG TAB 1 TABLET PO ×2 (07:59→19:57)
[2024-03-26] MEDS: carvediloL 6.25 MG TABLET PO ×2 (07:59→19:58)
[2024-03-26] MEDS: rOPINIRole HCL 1 MG TABLET PO (08:12)
[2024-03-26] MEDS: INSULIN GLARGINE (*BKC) 100 UNITS/ML 6 UNITS SUB-Q (08:12)
[2024-03-26] MEDS: cloNIDine HCL 0.2 MG TABLET PO ×2 (08:12→13:38)
[2024-03-26 08:24] LABS: Glucose Point of Care 113 mg/dl (65-105)
--- NOTE | 2024-03-26 08:55 | PC.NURSE ---
To Dialysis per hospital bed.
[2024-03-26 09:37] LABS: Hematocrit 27.1 % (37.0-47.0); Hemoglobin 8.6 g/dL (12.0-15.0); Mean Corpuscular HGB Conc 31.7 g/dl (32-36); Mean Corpuscular Hemoglobin 29.7 pg (26-34); Mean Corpuscular Volume 93.4 fl (80-100); Mean Platelet Volume 9.6 fl (7.4-10.4); Platelet Count Result 152 k/mm3 (150-375); Red Cell Distribution Width 17.4 % (11.5-14.5); White Blood Count 7.1 K/mm3 (4.5-10.0)
[2024-03-26 09:52] LABS: Albumin Level 3.2 g/dL (3.5-5.1); Anion Gap 11 mmol/L (4-12); Blood Urea Nitrogen 30 mg/dL (7-17); Calcium 8.2 mg/dL (8.4-10.2); Carbon Dioxide 28 mmol/L (22-30); Chloride 94 mmol/L (98-107); Estimated CRCL calculation 10 ml/min; Estimated Glomerular Filt Rate 8; Glucose 124 mg/dL (65-110); Phosphorus 3.5 mg/dL (2.5-4.5); Potassium 3.9 mmol/L (3.4-5.0); Sodium 133 mmol/L (137-145)
[2024-03-26] MEDS: hydrALAZINE HCL 20 MG/ML VIAL 10 MG IV PUSH (10:23)
[2024-03-26] MEDS: EPOETIN ALFA 20,000 UNITS/ML VIAL 20000 UNITS IV PUSH (10:58)
--- NOTE | 2024-03-26 11:10 | P.PNNP_ITS ---
Progress Note: A&P Assessment and Plan (1) End stage renal disease: Code(s): N18.6 - End stage renal disease Status: Chronic Assessment and Plan: * HD today * continue outpatient dialysis schedule of // * follow electrolytes, volume status, and clearance (2) Pneumonia: Qualifiers: Laterality: unspecified laterality Lung location: unspecified part of lung Pneumonia type: due to unspecified organism Qualified Code(s): J18.9 - Pneumonia, unspecified organism Code(s): J18.9 - Pneumonia, unspecified organism Status: Acute Assessment and Plan: * as suggested by admission imaging * follow respiratory status (stable at this time) * follow culture data * on antibiotics * continue supportive therapy (3) Hypertension: Qualifiers: Hypertension type: secondary to other renal disorders Qualified Code(s): I15.1 - Hypertension secondary to other renal disorders; N28.89 - Other specified disorders of kidney and ureter Code(s): I10 - Essential (primary) hypertension Status: Acute Assessment and Plan: * still running quite high despite current medications * will change losartan to irbesartan * follow trend of hemodynamics (4) Anemia: Qualifiers: Anemia type: due to chronic kidney disease Chronic kidney disease stage: on chronic dialysis Qualified Code(s): N18.6 - End stage renal disease; D63.1 - Anemia in chronic kidney disease; Z99.2 - Dependence on renal dialysis Code(s): D64.9 - Anemia, unspecified Status: Acute Assessment and Plan: * partly related to ESRD * however, recurrent issues with anemia requiring PRBC transfusion on previous hospitalizations * 4 units transfused during January 2024 hospitalization * prior GI work-up noted * Epogen/Retacrit with HD * PRBC transfusion per protocol (but has numerous antibodies making transfusion difficult) * GI recommendations noted * follow trend on H/H (5) Nausea and vomiting: Code(s): R11.2 - Nausea with vomiting, unspecified Status: Acute Assessment and Plan: * somewhat of a chronic issue * continue PRN medications (6) Generalized weakness: Code(s): R53.1 - Weakness Status: Acute Assessment and Plan: * as noted on admission * possibly partly related to anemia and recent operative procedure (left arm AV access placement) * PT/OT Will continue to follow. Subjective Date/time seen: 03/26/24 11:10 Interval history: Follow-up for end stage renal disease on hemodialysis. Tolerating dialysis treatment at the time of my visit (seen on HD at 11:00AM); resting comfortably when seen but reports feeling extremely weak and tired in general; BP quite elevated so HD nurse to call patient's nurse to give AM BP medications; no issues/evetns overnight or earlier this AM. Exam Narrative: General: elderly but WD/WN female in NAD Heart: normal S1 and S2; no rub Lungs: decreased breath sounds at bases Abdomen: soft, mild TTP, nondistended, positive bowel sounds Extremities: no cyanosis or clubbing; no edema Skin: no rash Objective Data Vital Signs Vital Signs: Vital Signs Temp Pulse Resp BP Pulse Ox O2 Del Method 03/26/24 11:00 57 L 215/70 H 03/26/24 10:45 56 L 210/66 H 03/26/24 10:30 56 L 218/84 H 03/26/24 10:15 59 L 230/68 H 03/26/24 10:00 58 L 224/76 H 03/26/24 09:45 57 L 217/72 H 03/26/24 09:30 58 L 222/69 H 03/26/24 09:01 98.1 F 56 L 16 211/66 H 97 03/26/24 09:20 58 L 202/72 H 03/26/24 08:00 57 L 03/26/24 08:00 Room Air 03/26/24 05:30 97.6 F 65 16 190/67 H 100 03/26/24 04:00 56 L 03/26/24 00:00 61 03/25/24 20:00 55 L 03/25/24 20:00 Room Air 03/25/24 21:00 66 03/25/24 20:55 194/69 H 03/25/24 20:46 97 F L 66 18 100 03/25/24 16:00 64 03/25/24 14:00 98.0 F 64 18 146/78 H 100 Intake/Output Intake/Output: Intake & Output 03/23/24 03/24/24 03/25/24 03/26/24 23:59 23:59 23:59 23:59 Intake Total 2059 1130 1880 400 Output Total 0 4000 Balance 2059 -2869 1880 400 Meds/Results Medications: Active Medications Generic Name Dose Route Start Last Admin Trade Name Freq PRN Reason Stop Dose Admin Acetaminophen 650 mg 03/20/24 09:25 03/20/24 09:36 Acetaminophen 325 Mg Tablet PO 650 mg Q6H PRN Administration Mild Pain (1-3) or Fever Albuterol 2 puff 03/20/24 06:22 03/22/24 04:35 Albuterol Sulfate (*Sp) Aerosol 1 Puff INHALATION 2 puff Q6H PRN Administration Shortness Of Breath Or Wheezing Allopurinol 100 mg 03/20/24 08:00 03/26/24 07:59 Allopurinol 100 Mg Tablet PO 100 mg DAILY@0800 PHYLICIA Administration Alprazolam 0.5 mg 03/20/24 06:22 03/26/24 08:00 Alprazolam (*Crx) 0.5 Mg Tablet PO 0.5 mg QID PRN Administration Anxiety Amantadine HCl 100 mg 03/22/24 09:00 03/22/24 13:27 Amantadine Hcl 100 Mg Capsule PO 100 mg Mo@0900 PHYLICIA Administration Amoxicillin/Clavulanate Potassium 1 tablet 03/22/24 21:00 03/26/24 07:59 Amoxicillin/Clavulanate K 500-125 Mg Tab PO 03/26/24 21:01 1 tablet Q12HR PHYLICIA Administration Anastrozole 1 mg 03/20/24 09:00 03/26/24 07:59 Anastrozole (*Chemo) 1 Mg Tablet PO 1 mg DAILY PHYLICIA Administration Aspirin 81 mg 03/20/24 11:00 03/26/24 07:59 Aspirin 81 Mg Enteric Tablet PO 81 mg QAM PHYLICIA Administration Atorvastatin Calcium 20 mg 03/20/24 21:00 03/25/24 21:00 Atorvastatin 20 Mg Tablet PO 20 mg HS PHYLICIA Administration Carvedilol 6.25 mg 03/20/24 09:00 03/26/24 07:59 Carvedilol 6.25 Mg Tablet PO 6.25 mg Q12HR PHYLICIA Administration Clonidine HCl 0.2 mg 03/26/24 07:15 03/26/24 08:12 Clonidine Hcl 0.2 Mg Tablet PO 0.2 mg Q8HR PHYLICIA Administration Docusate Sodium 100 mg 03/20/24 06:25 03/26/24 06:40 Docusate Sodium 100 Mg Capsule PO 100 mg Q12H PHYLICIA Administration Epoetin George 20,000 units 03/26/24 19:33 03/26/24 10:58 Epoetin George 20,000 Units/Ml Vial IV PUSH 03/26/24 19:34 20,000 units ONCE ONE Administration Fluticasone Propionate 1 spray 03/20/24 06:22 Fluticasone Propionate 0.05% Na Spr 16 Gm Btl (*Bkc) NASAL DAILY PRN allergies Folic Acid 1 mg 03/20/24 09:00 03/26/24 07:57 Folic Acid 1 Mg Tablet PO 1 mg DAILY PHYLICIA Administration Furosemide 80 mg 03/20/24 09:00 03/26/24 07:59 Furosemide 80 Mg Tablet PO 80 mg DAILY PHYLICIA Administration Hydralazine HCl 100 mg 03/20/24 08:00 03/26/24 07:57 Hydralazine Hcl 50 Mg Tablet PO 100 mg TIDWM PHYLICIA Administration Hydralazine HCl 10 mg 03/20/24 15:22 03/26/24 10:23 Hydralazine Hcl 20 Mg/Ml Vial IV PUSH 10 mg Q6HR PRN Administration Blood Pressure - High Albumin Human 50 mls @ 999 mls/hr 03/22/24 07:10 Albutein IVPB 04/21/24 07:09 Q10M PRN HYPOTENSION Insulin Glargine 6 units 03/20/24 09:00 03/26/24 08:12 Insulin Glargine (*Bkc) 100 Units/Ml SUB-Q 6 units DAILY PHYLICIA Administration Lamotrigine 100 mg 03/20/24 09:00 03/26/24 07:58 Lamotrigine 100 Mg Tablet PO 100 mg Q12HR PHYLICIA Administration Lamotrigine 50 mg 03/20/24 09:00 03/26/24 07:57 Lamotrigine 50 Mg Tablet PO 50 mg Q12HR PHYLICIA Administration Levetiracetam 750 mg 03/20/24 09:00 03/26/24 07:58 Levetiracetam 250 Mg Tablet PO 750 mg DAILY PHYLICIA Administration Levothyroxine Sodium 50 mcg 03/20/24 06:50 03/26/24 06:40 Levothyroxine Sodium 50 Mcg Tablet PO 50 mcg DAILY@0630 PHYLICIA Administration Losartan Potassium 100 mg 03/20/24 09:00 03/26/24 07:58 Losartan Potassium 50 Mg Tablet PO 100 mg DAILY PHYLICIA Administration Miscellaneous Information 0 each 03/20/24 07:00 03/26/24 10:44 Naloxegol [Movantik] 25 Mg Tablet- Nonformulary. Please Obtain A Home Supply If Possible. XX 04/19/24 06:59 Not Given CLARIFY PHYLICIA Miscellaneous Information 0 each 03/20/24 07:05 03/26/24 10:44 Vortioxetine- Nonformulary. Please Obtain A Home Supply If Possible. XX 04/19/24 07:04 Not Given CLARIFY PHYLICIA Montelukast Sodium 10 mg 03/20/24 21:00 03/25/24 20:59 Montelukast Sodium 10 Mg Tablet PO 10 mg HS PHYLICIA Administration Nifedipine 90 mg 03/21/24 09:00 03/26/24 07:58 Nifedipine 30 Mg Tab.Er.24 PO 90 mg DAILY PHYLICIA Administration Nitroglycerin 0.4 mg 03/20/24 10:10 03/20/24 10:37 Nitroglycerin Sl 0.4 Mg Tablet SUBLINGUAL 0.4 mg Q5MIN PRN Administration Chest Pain Non-Formulary Medication 25 mg 03/20/24 09:00 Naloxegol [Movantik] PO 04/19/24 08:59 DAILY PHYLICIA Non-Formulary Medication 20 mg 03/20/24 09:00 Vortioxetine [Trintellix] PO 04/19/24 08:59 DAILY PHYLICIA Oxycodone HCl 2.5 mg 03/20/24 06:49 03/25/24 21:12 Oxycodone Hcl (*Crx) 2.5 Mg Tab Ir PO 2.5 mg Q4H PRN Administration Pain (Scale Score 4-6) Oxycodone/Acetaminophen 1 tablet 03/20/24 06:48 03/25/24 20:48 Oxycodone/Acetaminophen (*Crx) 5-325 Mg Tablet PO 1 tablet Q4H PRN Administration Pain (Scale Score 4-6) Pantoprazole Sodium 40 mg 03/20/24 09:00 03/26/24 07:59 Pantoprazole 40 Mg Tablet PO 40 mg QAM PHYLICIA Administration Perflutren Lipid Microsphere 0 ml 03/24/24 19:26 Perflutren Lipid Microspheres 1.5 Ml Vial Diluted To 10 Ml Total Volume IV PUSH 03/27/24 19:26 ONCE PRN adequate visualization Protocol Polyethylene Glycol 17 gm 03/20/24 06:22 Polyethylene Glycol 3350 17 Gm Powd.Pack PO BID PRN Constipation Ropinirole HCl 1 mg 03/20/24 09:00 03/26/24 08:12 Ropinirole Hcl 1 Mg Tablet PO 1 mg QAM PHYLICIA Administration Ropinirole HCl 1.5 mg 03/20/24 21:00 03/25/24 20:59 Ropinirole Hcl 0.5 Mg Tablet PO 1.5 mg HS PHYLICIA Administration Sevelamer Carbonate 2,400 mg 03/20/24 08:00 03/26/24 07:57 Sevelamer Carbonate 800 Mg Tablet PO 2,400 mg TIDWM PHYLICIA Administration Tizanidine HCl 4 mg 03/20/24 06:22 Tizanidine Hcl 4 Mg Tablet PO BID PRN Muscle Spasm Radiology Results: ITS Impressions Chest X-Ray 03/24/24 15:05 IMPRESSION: 1. Decreasing mild pulmonary edema. 2. Small bilateral pleural effusions with associated basilar atelectasis and/or pneumonia. Labs Labs: Laboratory Tests 03/26/24 09:20 03/26/24 09:20 Calcium 8.2 L Phosphorus 3.5 Albumin 3.2 L Microbiology 03/20/24 03:53 Blood Blood Culture - Final 03/20/24 03:53 Blood Blood Culture - Final
--- NOTE | 2024-03-26 11:15 | PCOTNOTE ---
Attempted to see Patient this A.M. Patient out of the room, in dialysis.
[2024-03-26 11:48] LABS: Glucose Point of Care 112 mg/dl (65-105)
[2024-03-26] MEDS: HEPARIN SODIUM 1,000 UNITS/ML VIAL 4000 UNITS (13:27)
--- NOTE | 2024-03-26 16:21 | PM.IMPN ---
Progress Note: A&P Assessment and Plan (1) Pneumonia: Qualifiers: Laterality: unspecified laterality Lung location: unspecified part of lung Pneumonia type: due to unspecified organism Qualified Code(s): J18.9 - Pneumonia, unspecified organism Code(s): J18.9 - Pneumonia, unspecified organism Status: Acute Assessment and Plan: Patient presents with shortness of breath which has been worsening over the past few days. Normal WBC at 9. Chest x-ray showed right basilar pneumonia. Ceftriaxone and doxycycline ordered after cultures obtained. BCx NGTD. Sputum culture TNP. Repeat CXR showing decrease in mild pulm edema and small effusions and associated airspace disease. Antibiotics switched to oral to complete a course Remains on room air (2) Troponin I above reference range: Code(s): R79.89 - Other specified abnormal findings of blood chemistry Status: Acute Assessment and Plan: EKG showed sinus rhythm with 1st degree AVB, moderate ST depression and prolonged QT (QTc 529). Troponin elevated to 0.236 before trending down. BNP more than 30,000. Cardiology was consulted. Repeat EKG now showing marked ST depression with T wave inversion lateral leads. Cardiology reconsulted and Echo ordered. Echo showing normal LV size and fxn (EF 65-70%) with moderate wall thickening, Grade I diastolic dysfxn, normal RV, moderate bi-atrial enlargement, mild TR and mild-moderate MR. No significant wall motion abnormalities. EKG changes related to strain? Cardiology did not recommend additional cardiac workup at this time. Tolerating ASA, Coreg, Lipitor. (3) Nausea and vomiting: Code(s): R11.2 - Nausea with vomiting, unspecified Status: Acute Assessment and Plan: Patient with persistent nausea/vomiting. She states this is not uncommon for her and takes Xanax prn for nausea. A known issue with intermittent flares. 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 Add carafate. Consider GI consult if persistent. (4) Uncontrolled hypertension: Code(s): I10 - Essential (primary) hypertension Status: Acute Assessment and Plan: Hypertension uncontrolled on admission. Currently on Procardia, hydralazine, losartan, Coreg and clonidine BP still poorly controlled. Advanced clonidine but now having pauses so will back down to prior dose of Clonidine. Monitor on tele. Consider minoxidil but not great choice due to renal failure and CAD. Add terazosin with plans to eventually stop clonidine. Defer to nephrology for further recommendations. (5) Anemia in ESRD (end-stage renal disease): Code(s): N18.6 - End stage renal disease; D63.1 - Anemia in chronic kidney disease Status: Acute Assessment and Plan: Chronic anemia: Hemoglobin around 7-8 and no signs of active bleeding. Anemia worsened down to 6.9 and transfused 1 unit PRBC. However had antibody and did not receive transfusion Repeat Hgb 6.7 yesterday and received 1U. GI consulted. Gastric polyp previously evaluated by EGD on 01/13/2024. Noninvasive reflux disease/gastritis / esophagitis currently on PPI Plan for video capsule endoscopy as outpatient Hematology was consulted. Repeat Hgb better and remaining stable. Follow for stability (6) End stage renal disease: Code(s): N18.6 - End stage renal disease Status: Chronic Assessment and Plan: End-stage renal disease on hemodialysis Friday Nephrology consulted. Continue HD (7) Generalized weakness: Code(s): R53.1 - Weakness Status: Acute Assessment and Plan: PT/OT started. walking in halls. (8) Paroxysmal A-fib: Code(s): I48.0 - Paroxysmal atrial fibrillation Status: Acute Assessment and Plan: Stable with EKG showing NSR. No anticoagulation due to anemia Plan Anxiety depression/bipolar disorder Breast cancer status post lumpectomy Coronary artery disease Gastroparesis Tardive dyskinesia KACIE History of peptic ulcer Neuropathy DVT prophylaxis SCDs Code status full code Subjective Date/time seen: 03/26/24 16:21 Interval history: 68yo female with ESRD on HD, DM, HTNm CAD, Gastroparesis and bipolar disorder here for shortness of breath. Continues to have nausea and vomiting. No hematemesis. No Cp or SOB. Feels fatigued. Exam Narrative: AF 97.4 185/64 56 20 100% ra Gen - NARD lying semi-recumbent undergoing HD. Chest - Rt upper chest HD tunneled catheter currntly accessed. minimal crackles in the flanks CV - RRR S1/S2 2/6 systolic murmur USB. Tele showing 3 sec pause once otherwise no significant dysrhythmias Abd - Soft, ND, diffusely tender without guarding Ext - No pedal edema. Left UE fistula thrill/bruit. RUE defunct fistula Psych - Nml mood and affect Skin - Warm and dry Objective Data Vital Signs Vital Signs: Vital Signs - 24 hr 03/25/24 20:46 03/25/24 20:55 03/25/24 21:00 Temperature 97 F L Pulse Rate 66 66 Respiratory Rate 18 Blood Pressure 194/69 H Pulse Oximetry 100 Oxygen Delivery 03/25/24 20:00 03/25/24 20:00 03/26/24 00:00 Temperature Pulse Rate 55 L 61 Respiratory Rate Blood Pressure Pulse Oximetry Oxygen Delivery Room Air 03/26/24 04:00 03/26/24 05:30 03/26/24 08:00 Temperature 97.6 F Pulse Rate 56 L 65 Respiratory Rate 16 Blood Pressure 190/67 H Pulse Oximetry 100 Oxygen Delivery Room Air 03/26/24 08:00 03/26/24 09:20 03/26/24 09:01 Temperature 98.1 F Pulse Rate 57 L 58 L 56 L Respiratory Rate 16 Blood Pressure 202/72 H 211/66 H Pulse Oximetry 97 Oxygen Delivery 03/26/24 09:30 03/26/24 09:45 03/26/24 10:00 Temperature Pulse Rate 58 L 57 L 58 L Respiratory Rate Blood Pressure 222/69 H 217/72 H 224/76 H Pulse Oximetry Oxygen Delivery 03/26/24 10:15 03/26/24 10:30 03/26/24 11:15 Temperature Pulse Rate 59 L 56 L 55 L Respiratory Rate Blood Pressure 230/68 H 218/84 H 180/63 H Pulse Oximetry Oxygen Delivery 03/26/24 10:45 03/26/24 11:00 03/26/24 11:30 Temperature Pulse Rate 56 L 57 L 55 L Respiratory Rate Blood Pressure 210/66 H 215/70 H 206/62 H Pulse Oximetry Oxygen Delivery 03/26/24 12:00 03/26/24 11:45 03/26/24 12:00 Temperature Pulse Rate 54 L 54 L 54 L Respiratory Rate Blood Pressure 218/66 H 198/64 H Pulse Oximetry Oxygen Delivery 03/26/24 12:15 03/26/24 12:30 03/26/24 12:45 Temperature Pulse Rate 55 L 56 L 56 L Respiratory Rate Blood Pressure 184/66 H 204/68 H 205/76 H Pulse Oximetry Oxygen Delivery 03/26/24 12:56 03/26/24 13:05 03/26/24 14:00 Temperature 97.9 F 97.4 F L Pulse Rate 57 L 58 L 56 L Respiratory Rate 16 20 Blood Pressure 215/64 H 207/69 H 185/64 H Pulse Oximetry 98 100 Oxygen Delivery Intake/Output Intake/Output: Intake & Output 03/23/24 03/24/24 03/25/24 03/26/24 23:59 23:59 23:59 23:59 Intake Total 2060 1130 1880 520 Output Total 0 4000 3500 Balance 2060 -2870 1880 -2980 Meds/Results Medications: Active Medications Generic Name Dose Route Start Last Admin Trade Name Freq PRN Reason Stop Dose Admin Acetaminophen 650 mg 03/20/24 09:25 03/20/24 09:36 Acetaminophen 325 Mg Tablet PO 650 mg Q6H PRN Administration Mild Pain (1-3) or Fever Albuterol 2 puff 03/20/24 06:22 03/22/24 04:35 Albuterol Sulfate (*Sp) Aerosol 1 Puff INHALATION 2 puff Q6H PRN Administration Shortness Of Breath Or Wheezing Allopurinol 100 mg 03/20/24 08:00 03/26/24 07:59 Allopurinol 100 Mg Tablet PO 100 mg DAILY@0800 PHYLICIA Administration Alprazolam 0.5 mg 03/20/24 06:22 03/26/24 13:38 Alprazolam (*Crx) 0.5 Mg Tablet PO 0.5 mg QID PRN Administration Anxiety Amantadine HCl 100 mg 03/22/24 09:00 03/22/24 13:27 Amantadine Hcl 100 Mg Capsule PO 100 mg Mo@0900 PHYLICIA Administration Amoxicillin/Clavulanate Potassium 1 tablet 03/22/24 21:00 03/26/24 07:59 Amoxicillin/Clavulanate K 500-125 Mg Tab PO 03/26/24 21:01 1 tablet Q12HR PHYLICIA Administration Anastrozole 1 mg 03/20/24 09:00 03/26/24 07:59 Anastrozole (*Chemo) 1 Mg Tablet PO 1 mg DAILY PHYLICIA Administration Aspirin 81 mg 03/20/24 11:00 03/26/24 07:59 Aspirin 81 Mg Enteric Tablet PO 81 mg QAM PHYLICIA Administration Atorvastatin Calcium 20 mg 03/20/24 21:00 03/25/24 21:00 Atorvastatin 20 Mg Tablet PO 20 mg HS PHYLICIA Administration Carvedilol 6.25 mg 03/20/24 09:00 03/26/24 07:59 Carvedilol 6.25 Mg Tablet PO 6.25 mg Q12HR PHYLICIA Administration Clonidine HCl 0.2 mg 03/26/24 07:15 03/26/24 13:38 Clonidine Hcl 0.2 Mg Tablet PO 0.2 mg Q8HR PHYLICIA Administration Docusate Sodium 100 mg 03/20/24 06:25 03/26/24 06:40 Docusate Sodium 100 Mg Capsule PO 100 mg Q12H PHYLICIA Administration Epoetin George 20,000 units 03/26/24 19:33 03/26/24 10:58 Epoetin George 20,000 Units/Ml Vial IV PUSH 03/26/24 19:34 20,000 units ONCE ONE Administration Fluticasone Propionate 1 spray 03/20/24 06:22 Fluticasone Propionate 0.05% Na Spr 16 Gm Btl (*Bkc) NASAL DAILY PRN allergies Folic Acid 1 mg 03/20/24 09:00 03/26/24 07:57 Folic Acid 1 Mg Tablet PO 1 mg DAILY PHYLICIA Administration Furosemide 80 mg 03/20/24 09:00 03/26/24 07:59 Furosemide 80 Mg Tablet PO 80 mg DAILY PHYLICIA Administration Hydralazine HCl 100 mg 03/20/24 08:00 03/26/24 13:38 Hydralazine Hcl 50 Mg Tablet PO 100 mg TIDWM PHYLICIA Administration Hydralazine HCl 10 mg 03/20/24 15:22 03/26/24 10:23 Hydralazine Hcl 20 Mg/Ml Vial IV PUSH 10 mg Q6HR PRN Administration Blood Pressure - High Albumin Human 50 mls @ 999 mls/hr 03/22/24 07:10 Albutein IVPB 04/21/24 07:09 Q10M PRN HYPOTENSION Insulin Glargine 6 units 03/20/24 09:00 03/26/24 08:12 Insulin Glargine (*Bkc) 100 Units/Ml SUB-Q 6 units DAILY PHYLICIA Administration Lamotrigine 100 mg 03/20/24 09:00 03/26/24 07:58 Lamotrigine 100 Mg Tablet PO 100 mg Q12HR PHYLICIA Administration Lamotrigine 50 mg 03/20/24 09:00 03/26/24 07:57 Lamotrigine 50 Mg Tablet PO 50 mg Q12HR PHYLICIA Administration Levetiracetam 750 mg 03/20/24 09:00 03/26/24 07:58 Levetiracetam 250 Mg Tablet PO 750 mg DAILY PHYLICIA Administration Levothyroxine Sodium 50 mcg 03/20/24 06:50 03/26/24 06:40 Levothyroxine Sodium 50 Mcg Tablet PO 50 mcg DAILY@0630 PHYLICIA Administration Losartan Potassium 100 mg 03/20/24 09:00 03/26/24 07:58 Losartan Potassium 50 Mg Tablet PO 100 mg DAILY PHYLICIA Administration Miscellaneous Information 0 each 03/20/24 07:00 03/26/24 10:44 Naloxegol [Movantik] 25 Mg Tablet- Nonformulary. Please Obtain A Home Supply If Possible. XX 04/19/24 06:59 Not Given CLARIFY PHYLICIA Miscellaneous Information 0 each 03/20/24 07:05 03/26/24 10:44 Vortioxetine- Nonformulary. Please Obtain A Home Supply If Possible. XX 04/19/24 07:04 Not Given CLARIFY PHYLICIA Montelukast Sodium 10 mg 03/20/24 21:00 03/25/24 20:59 Montelukast Sodium 10 Mg Tablet PO 10 mg HS PHYLICIA Administration Nifedipine 90 mg 03/21/24 09:00 03/26/24 07:58 Nifedipine 30 Mg Tab.Er.24 PO 90 mg DAILY PHYLICIA Administration Nitroglycerin 0.4 mg 03/20/24 10:10 03/20/24 10:37 Nitroglycerin Sl 0.4 Mg Tablet SUBLINGUAL 0.4 mg Q5MIN PRN Administration Chest Pain Non-Formulary Medication 25 mg 03/20/24 09:00 Naloxegol [Movantik] PO 04/19/24 08:59 DAILY PHYLICIA Non-Formulary Medication 20 mg 03/20/24 09:00 Vortioxetine [Trintellix] PO 04/19/24 08:59 DAILY PHYLICIA Oxycodone HCl 2.5 mg 03/20/24 06:49 03/25/24 21:12 Oxycodone Hcl (*Crx) 2.5 Mg Tab Ir PO 2.5 mg Q4H PRN Administration Pain (Scale Score 4-6) Oxycodone/Acetaminophen 1 tablet 03/20/24 06:48 03/25/24 20:48 Oxycodone/Acetaminophen (*Crx) 5-325 Mg Tablet PO 1 tablet Q4H PRN Administration Pain (Scale Score 4-6) Pantoprazole Sodium 40 mg 03/20/24 09:00 03/26/24 07:59 Pantoprazole 40 Mg Tablet PO 40 mg QAM PHYLICIA Administration Perflutren Lipid Microsphere 0 ml 03/24/24 19:26 Perflutren Lipid Microspheres 1.5 Ml Vial Diluted To 10 Ml Total Volume IV PUSH 03/27/24 19:26 ONCE PRN adequate visualization Protocol Polyethylene Glycol 17 gm 03/20/24 06:22 Polyethylene Glycol 3350 17 Gm Powd.Pack PO BID PRN Constipation Ropinirole HCl 1 mg 03/20/24 09:00 03/26/24 08:12 Ropinirole Hcl 1 Mg Tablet PO 1 mg QAM PHYLICIA Administration Ropinirole HCl 1.5 mg 03/20/24 21:00 03/25/24 20:59 Ropinirole Hcl 0.5 Mg Tablet PO 1.5 mg HS PHYLICIA Administration Sevelamer Carbonate 2,400 mg 03/20/24 08:00 03/26/24 13:38 Sevelamer Carbonate 800 Mg Tablet PO 2,400 mg TIDWM PHYLICIA Administration Tizanidine HCl 4 mg 03/20/24 06:22 Tizanidine Hcl 4 Mg Tablet PO BID PRN Muscle Spasm Radiology Results: ITS Impressions Chest X-Ray 03/24/24 15:05 IMPRESSION: 1. Decreasing mild pulmonary edema. 2. Small bilateral pleural effusions with associated basilar atelectasis and/or pneumonia. Labs Labs: Laboratory Results - last 24 hr 03/25/24 03/25/24 03/26/24 16:36 19:49 07:48 WBC RBC Hgb Hct MCV MCH MCHC RDW Plt Count MPV Sodium Potassium Chloride Carbon Dioxide Anion Gap BUN Creatinine Estim Creat Clear Calc Estimated GFR Glucose POC Capillary Glucose 118 H 129 H 113 H Calcium Phosphorus Albumin 03/26/24 03/26/24 09:20 11:29 WBC 7.1 RBC 2.90 L Hgb 8.6 L Hct 27.1 L MCV 93.4 MCH 29.7 MCHC 31.7 L RDW 17.4 H Plt Count 152 MPV 9.6 Sodium 133 L Potassium 3.9 Chloride 94 L Carbon Dioxide 28 Anion Gap 11 BUN 30 H D Creatinine 5.10 H Estim Creat Clear Calc 10 Estimated GFR 8 L Glucose 124 H POC Capillary Glucose 112 H Calcium 8.2 L Phosphorus 3.5 Albumin 3.2 L
[2024-03-26 16:48] LABS: Glucose Point of Care 152 mg/dl (65-105)
[2024-03-26] MEDS: SUCRALFATE SUSP 100 MG/ML 10 ML UDC 1000 MG PO ×2 (17:01→20:07)
[2024-03-26] MEDS: TERAZOSIN HCL 1 MG CAPSULE 2 MG PO (19:57)
[2024-03-26] MEDS: ATORVASTATIN 20 MG TABLET PO (19:57)
[2024-03-26] MEDS: rOPINIRole HCL 0.5 MG TABLET 1.5 MG PO (19:58)
[2024-03-26] MEDS: MONTELUKAST SODIUM 10 MG TABLET PO (19:58)
[2024-03-26] MEDS: cloNIDine HCL 0.1 MG TABLET PO (19:58)
[2024-03-26 20:01] LABS: Glucose Point of Care 160 mg/dl (65-105)
[2024-03-26] MEDS: oxyCODONE HCL (*CRX) 2.5 MG TAB IR PO (20:07)
[2024-03-26] MEDS: oxyCODONE/ACETAMINOPHEN (*CRX) 5-325 MG TABLET 1 TABLET PO (20:08)
[2024-03-27] VITALS (7 sets, daily range): BP systolic 164; BP diastolic 56; PULSE 50–78; RESP 16; TEMP 36.7; O2SAT 100
[2024-03-27] MEDS: oxyCODONE HCL (*CRX) 2.5 MG TAB IR PO (03:01)
[2024-03-27] MEDS: oxyCODONE/ACETAMINOPHEN (*CRX) 5-325 MG TABLET 1 TABLET PO (03:01)
[2024-03-27 04:04] LABS: Methylmalonic Acid 648 nmol/L (69-390)
[2024-03-27] MEDS: LEVOTHYROXINE SODIUM 50 MCG TABLET PO (06:30)
[2024-03-27] MEDS: DOCUSATE SODIUM 100 MG CAPSULE PO (06:30)
[2024-03-27] MEDS: SUCRALFATE SUSP 100 MG/ML 10 ML UDC 1000 MG PO ×2 (06:30→11:54)
[2024-03-27 07:51] LABS: Glucose Point of Care 167 mg/dl (65-105)
[2024-03-27] MEDS: FLUTICASONE PROPIONATE 0.05% NA SPR 16 GM BTL (*BKC) 1 SPRAY NASAL (09:12)
[2024-03-27] MEDS: rOPINIRole HCL 1 MG TABLET PO (09:13)
[2024-03-27] MEDS: lamoTRIgine 50 MG TABLET PO (09:13)
[2024-03-27] MEDS: NIFEdipine 30 MG TAB.ER.24 90 MG PO (09:13)
[2024-03-27] MEDS: carvediloL 6.25 MG TABLET PO (09:13)
[2024-03-27] MEDS: allopurinoL 100 MG TABLET PO (09:13)
[2024-03-27] MEDS: lamoTRIgine 100 MG TABLET PO (09:13)
[2024-03-27] MEDS: ANASTROZOLE (*CHEMO) 1 MG TABLET PO (09:13)
[2024-03-27] MEDS: cloNIDine HCL 0.1 MG TABLET PO (09:14)
[2024-03-27] MEDS: SEVELAMER CARBONATE 800 MG TABLET 2400 MG PO ×2 (09:14→11:54)
[2024-03-27] MEDS: FOLIC ACID 1 MG TABLET PO (09:14)
[2024-03-27] MEDS: ASPIRIN 81 MG ENTERIC TABLET PO (09:14)
[2024-03-27] MEDS: levETIRAcetam 250 MG TABLET 750 MG PO (09:14)
[2024-03-27] MEDS: FUROSEMIDE 80 MG TABLET PO (09:14)
[2024-03-27] MEDS: PANTOPRAZOLE 40 MG TABLET PO (09:14)
[2024-03-27] MEDS: hydrALAZINE HCL 50 MG TABLET 100 MG PO ×2 (09:14→11:54)
[2024-03-27] MEDS: IRBESARTAN 150 MG TABLET 300 MG PO (09:15)
[2024-03-27] MEDS: INSULIN GLARGINE (*BKC) 100 UNITS/ML 6 UNITS SUB-Q (09:15)
[2024-03-27] MEDS: ALPRAZolam (*CRX) 0.5 MG TABLET PO (09:27)
--- NOTE | 2024-03-27 10:47 | PC.NURSE ---
Addendum entered by Alma Guthrie RN 03/27/24 11:13: No IV access, very hard stick per shift nurse manager report. Labs are drawn during HD. Tunnel Cath dressing CDI. Original Note: Patient resting in bed. Patient has multiple complaints regarding her food tray arriving with things she has repeatedly states she does not eat . Discussed possible DC today. Patient took all of her mediations without difficulty. Stool sample still pending even though patient state she has had two BM's since being here, the last one day before yesterday .
--- NOTE | 2024-03-27 11:04 | P.PNNP_ITS ---
Progress Note: A&P Assessment and Plan (1) End stage renal disease: Code(s): N18.6 - End stage renal disease Status: Chronic Assessment and Plan: * HD was done yesterday * continue outpatient dialysis schedule of // * electrolytes ok (2) Pneumonia: Qualifiers: Laterality: unspecified laterality Lung location: unspecified part of lung Pneumonia type: due to unspecified organism Qualified Code(s): J18.9 - Pneumonia, unspecified organism Code(s): J18.9 - Pneumonia, unspecified organism Status: Acute Assessment and Plan: * as suggested by admission imaging * follow respiratory status (stable at this time) * follow culture data - negative to date * Finished antibiotics * continue supportive therapy (3) Hypertension: Qualifiers: Hypertension type: secondary to other renal disorders Qualified Code(s): I15.1 - Hypertension secondary to other renal disorders; N28.89 - Other specified disorders of kidney and ureter Code(s): I10 - Essential (primary) hypertension Status: Acute Assessment and Plan: * elevated on presentation * seems to fluctuate to extremes * being more aggressive with ultrafiltration with HD to see if that helps * resumed home medications * losartan changed to the stronger or irbesartan. Terazosin increased. On nifedipine 90. Initially placed on clonidine but had a pause yesterday so this was cut and now will be discontinued. She is on carvedilol. So being discharged on irbesartan, terazosin, nifedipine, and carvedilol and heart rate doing okay now. She will take her blood pressure readings at home. (4) Anemia: Qualifiers: Anemia type: due to chronic kidney disease Chronic kidney disease stage: on chronic dialysis Qualified Code(s): N18.6 - End stage renal disease; D63.1 - Anemia in chronic kidney disease; Z99.2 - Dependence on renal dialysis Code(s): D64.9 - Anemia, unspecified Status: Acute Assessment and Plan: * partly related to ESRD * prior GI work-up noted * Epogen/Retacrit with HD * GI and Hem/Onc recommendations noted * PRBC transfusion with HD on 03/24 she has high antibody titer. (5) Paroxysmal A-fib: Code(s): I48.0 - Paroxysmal atrial fibrillation Status: Acute Assessment and Plan: * stable at this time * no anticoagulation due to recurrent/chronic anemia (6) Generalized weakness: Code(s): R53.1 - Weakness Status: Acute Assessment and Plan: * as noted on admission * possibly partly related to anemia and recent operative procedure (left arm AV access placement) * PT/OT as tolerated Will continue to follow. Subjective Date/time seen: 03/27/24 11:04 Interval history: Patient feels okay. She is eager for discharge her blood pressure was very high yesterday and is better today. Exam Narrative: General: elderly but WD/WN female in NAD Heart: normal S1 and S2; no rub or gallop Lungs: decreased breath sounds at bases Abdomen: soft, mild TTP, nondistended, positive bowel sounds Extremities: no cyanosis or clubbing; no edema Skin: No rash Objective Data Vital Signs Vital Signs: Vital Signs - 24 hr 03/26/24 11:15 03/26/24 11:30 03/26/24 12:00 Temperature Pulse Rate 55 L 55 L 54 L Respiratory Rate Blood Pressure 180/63 H 206/62 H Pulse Oximetry Oxygen Delivery 03/26/24 11:45 03/26/24 12:00 03/26/24 12:15 Temperature Pulse Rate 54 L 54 L 55 L Respiratory Rate Blood Pressure 218/66 H 198/64 H 184/66 H Pulse Oximetry Oxygen Delivery 03/26/24 12:30 03/26/24 12:45 03/26/24 12:56 Temperature Pulse Rate 56 L 56 L 57 L Respiratory Rate Blood Pressure 204/68 H 205/76 H 215/64 H Pulse Oximetry Oxygen Delivery 03/26/24 13:05 03/26/24 14:00 03/26/24 16:00 Temperature 97.9 F 97.4 F L Pulse Rate 58 L 56 L 55 L Respiratory Rate 16 20 Blood Pressure 207/69 H 185/64 H Pulse Oximetry 98 100 Oxygen Delivery 03/26/24 19:58 03/26/24 20:08 03/26/24 20:00 Temperature 99.7 F H Pulse Rate 67 58 L Respiratory Rate 18 Blood Pressure 190/55 H Pulse Oximetry 98 Oxygen Delivery Room Air 03/26/24 20:00 03/27/24 00:00 03/27/24 04:00 Temperature Pulse Rate 59 L 56 L 52 L Respiratory Rate Blood Pressure Pulse Oximetry Oxygen Delivery 03/27/24 05:55 03/27/24 09:13 Temperature 98.1 F Pulse Rate 50 L 78 Respiratory Rate 16 Blood Pressure 164/56 H Pulse Oximetry 100 Oxygen Delivery Intake/Output Intake/Output: Intake & Output 03/24/24 03/25/24 03/26/24 03/27/24 23:59 23:59 23:59 23:59 Intake Total 1130 1880 890 758 Output Total 4000 3500 Balance -2870 1880 -2610 758 Meds/Results Medications: Active Medications Generic Name Dose Route Start Last Admin Trade Name Freq PRN Reason Stop Dose Admin Acetaminophen 650 mg 03/20/24 09:25 03/20/24 09:36 Acetaminophen 325 Mg Tablet PO 650 mg Q6H PRN Administration Mild Pain (1-3) or Fever Albuterol 2 puff 03/20/24 06:22 03/22/24 04:35 Albuterol Sulfate (*Sp) Aerosol 1 Puff INHALATION 2 puff Q6H PRN Administration Shortness Of Breath Or Wheezing Allopurinol 100 mg 03/20/24 08:00 03/27/24 09:13 Allopurinol 100 Mg Tablet PO 100 mg DAILY@0800 PHYLICIA Administration Alprazolam 0.5 mg 03/20/24 06:22 03/27/24 09:27 Alprazolam (*Crx) 0.5 Mg Tablet PO 0.5 mg QID PRN Administration Anxiety Amantadine HCl 100 mg 03/22/24 09:00 03/22/24 13:27 Amantadine Hcl 100 Mg Capsule PO 100 mg Mo@0900 PHYLICIA Administration Anastrozole 1 mg 03/20/24 09:00 03/27/24 09:13 Anastrozole (*Chemo) 1 Mg Tablet PO 1 mg DAILY PHYLICIA Administration Aspirin 81 mg 03/20/24 11:00 03/27/24 09:14 Aspirin 81 Mg Enteric Tablet PO 81 mg QAM PHYLICIA Administration Atorvastatin Calcium 20 mg 03/20/24 21:00 03/26/24 19:57 Atorvastatin 20 Mg Tablet PO 20 mg HS PHYLICIA Administration Carvedilol 6.25 mg 03/20/24 09:00 03/27/24 09:13 Carvedilol 6.25 Mg Tablet PO 6.25 mg Q12HR PHYLICIA Administration Clonidine HCl 0.1 mg 03/26/24 21:00 03/27/24 09:14 Clonidine Hcl 0.1 Mg Tablet PO 0.1 mg Q12HR PHYLICIA Administration Docusate Sodium 100 mg 03/20/24 06:25 03/27/24 06:30 Docusate Sodium 100 Mg Capsule PO 100 mg Q12H PHYLICIA Administration Fluticasone Propionate 1 spray 03/20/24 06:22 03/27/24 09:12 Fluticasone Propionate 0.05% Na Spr 16 Gm Btl (*Bkc) NASAL 1 spray DAILY PRN Administration allergies Folic Acid 1 mg 03/20/24 09:00 03/27/24 09:14 Folic Acid 1 Mg Tablet PO 1 mg DAILY PHYLICIA Administration Furosemide 80 mg 03/20/24 09:00 03/27/24 09:14 Furosemide 80 Mg Tablet PO 80 mg DAILY PHYLICIA Administration Hydralazine HCl 100 mg 03/20/24 08:00 03/27/24 09:14 Hydralazine Hcl 50 Mg Tablet PO 100 mg TIDWM PHYLICIA Administration Hydralazine HCl 10 mg 03/20/24 15:22 03/26/24 10:23 Hydralazine Hcl 20 Mg/Ml Vial IV PUSH 10 mg Q6HR PRN Administration Blood Pressure - High Albumin Human 50 mls @ 999 mls/hr 03/22/24 07:10 Albutein IVPB 04/21/24 07:09 Q10M PRN HYPOTENSION Insulin Glargine 6 units 03/20/24 09:00 03/27/24 09:15 Insulin Glargine (*Bkc) 100 Units/Ml SUB-Q 6 units DAILY PHYLICIA Administration Irbesartan 300 mg 03/27/24 09:00 03/27/24 09:15 Irbesartan 150 Mg Tablet PO 300 mg QAM PHYLICIA Administration Lamotrigine 100 mg 03/20/24 09:00 03/27/24 09:13 Lamotrigine 100 Mg Tablet PO 100 mg Q12HR PHYLICIA Administration Lamotrigine 50 mg 03/20/24 09:00 03/27/24 09:13 Lamotrigine 50 Mg Tablet PO 50 mg Q12HR PHYLICIA Administration Levetiracetam 750 mg 03/20/24 09:00 03/27/24 09:14 Levetiracetam 250 Mg Tablet PO 750 mg DAILY PHYLICIA Administration Levothyroxine Sodium 50 mcg 03/20/24 06:50 03/27/24 06:30 Levothyroxine Sodium 50 Mcg Tablet PO 50 mcg DAILY@0630 PHYLICIA Administration Miscellaneous Information 0 each 03/20/24 07:00 03/26/24 10:44 Naloxegol [Movantik] 25 Mg Tablet- Nonformulary. Please Obtain A Home Supply If Possible. XX 04/19/24 06:59 Not Given CLARIFY PHYLICIA Miscellaneous Information 0 each 03/20/24 07:05 03/26/24 10:44 Vortioxetine- Nonformulary. Please Obtain A Home Supply If Possible. XX 04/19/24 07:04 Not Given CLARIFY PHYLICIA Montelukast Sodium 10 mg 03/20/24 21:00 03/26/24 19:58 Montelukast Sodium 10 Mg Tablet PO 10 mg HS PHYLICIA Administration Nifedipine 90 mg 03/21/24 09:00 03/27/24 09:13 Nifedipine 30 Mg Tab.Er.24 PO 90 mg DAILY PYHLICIA Administration Nitroglycerin 0.4 mg 03/20/24 10:10 03/20/24 10:37 Nitroglycerin Sl 0.4 Mg Tablet SUBLINGUAL 0.4 mg Q5MIN PRN Administration Chest Pain Non-Formulary Medication 25 mg 03/20/24 09:00 Naloxegol [Movantik] PO 04/19/24 08:59 DAILY PHYLICIA Non-Formulary Medication 20 mg 03/20/24 09:00 Vortioxetine [Trintellix] PO 04/19/24 08:59 DAILY PHYLICIA Oxycodone HCl 2.5 mg 03/20/24 06:49 03/27/24 03:01 Oxycodone Hcl (*Crx) 2.5 Mg Tab Ir PO 2.5 mg Q4H PRN Administration Pain (Scale Score 4-6) Oxycodone/Acetaminophen 1 tablet 03/20/24 06:48 03/27/24 03:01 Oxycodone/Acetaminophen (*Crx) 5-325 Mg Tablet PO 1 tablet Q4H PRN Administration Pain (Scale Score 4-6) Pantoprazole Sodium 40 mg 03/26/24 21:00 03/27/24 09:14 Pantoprazole 40 Mg Tablet PO 40 mg Q12HR PHYLICIA Administration Perflutren Lipid Microsphere 0 ml 03/24/24 19:26 Perflutren Lipid Microspheres 1.5 Ml Vial Diluted To 10 Ml Total Volume IV PU SH 03/27/24 19:26 ONCE PRN adequate visualization Protocol Polyethylene Glycol 17 gm 03/20/24 06:22 Polyethylene Glycol 3350 17 Gm Powd.Pack PO BID PRN Constipation Ropinirole HCl 1 mg 03/20/24 09:00 03/27/24 09:13 Ropinirole Hcl 1 Mg Tablet PO 1 mg QAM PHYLICIA Administration Ropinirole HCl 1.5 mg 03/20/24 21:00 03/26/24 19:58 Ropinirole Hcl 0.5 Mg Tablet PO 1.5 mg HS PHYLICIA Administration Sevelamer Carbonate 2,400 mg 03/20/24 08:00 03/27/24 09:14 Sevelamer Carbonate 800 Mg Tablet PO 2,400 mg TIDWM PHYLICIA Administration Sucralfate 1,000 mg 03/26/24 16:45 03/27/24 06:30 Sucralfate Susp 100 Mg/Ml 10 Ml Udc PO 1,000 mg ACHS PHYLICIA Administration Terazosin HCl 5 mg 03/27/24 21:00 Terazosin Hcl 5 Mg Capsule PO HS PHYLICIA Tizanidine HCl 4 mg 03/20/24 06:22 Tizanidine Hcl 4 Mg Tablet PO BID PRN Muscle Spasm Radiology Results: ITS Impressions Chest X-Ray 03/24/24 15:05 IMPRESSION: 1. Decreasing mild pulmonary edema. 2. Small bilateral pleural effusions with associated basilar atelectasis and/or pneumonia. Labs Labs: Laboratory Results - last 24 hr 03/23/24 03/26/24 03/26/24 12:26 11:29 16:24 POC Capillary Glucose 112 H 152 H Methylmalonic Acid 648 H 03/26/24 03/27/24 19:44 07:48 POC Capillary Glucose 160 H 167 H Methylmalonic Acid
[2024-03-27 12:06] LABS: Glucose Point of Care 135 mg/dl (65-105)
--- NOTE | 2024-03-27 13:55 | PM.DS ---
DS: Admitting Diagnosis Discharge Date 03/27/24 Admitting Diagnosis Shortness of breath DS: Discharge Diagnosis Discharge Diagnosis (1) Pneumonia: Qualifiers: Laterality: unspecified laterality Lung location: unspecified part of lung Pneumonia type: due to unspecified organism Qualified Code(s): J18.9 - Pneumonia, unspecified organism Code(s): J18.9 - Pneumonia, unspecified organism Status: Acute (2) Troponin I above reference range: Code(s): R79.89 - Other specified abnormal findings of blood chemistry Status: Acute (3) Nausea and vomiting: Code(s): R11.2 - Nausea with vomiting, unspecified Status: Acute (4) Uncontrolled hypertension: Code(s): I10 - Essential (primary) hypertension Status: Acute (5) Anemia in ESRD (end-stage renal disease): Code(s): N18.6 - End stage renal disease; D63.1 - Anemia in chronic kidney disease Status: Acute (6) End stage renal disease: Code(s): N18.6 - End stage renal disease Status: Chronic (7) Generalized weakness: Code(s): R53.1 - Weakness Status: Acute (8) Paroxysmal A-fib: Code(s): I48.0 - Paroxysmal atrial fibrillation Status: Acute DS: Summary Hospital Course Reason for hospitalization: 68yo female with ESRD on HD, DM, HTNm CAD, Gastroparesis and bipolar disorder here for shortness of breath. Please see H&P for details. Hospital Course: Patient presents with shortness of breath which has been worsening over the past few days. Normal WBC at 9K. Chest x-ray showed right basilar pneumonia. Ceftriaxone and doxycycline ordered after cultures obtained. BCx negative. Sputum culture TNP. Repeat CXR showing decrease in mild pulm edema and small effusions and associated airspace disease. Antibiotics switched to oral and she completed a course. She remained on room air. EKG showed sinus rhythm with 1st degree AVB, moderate ST depression and prolonged QT (QTc 529). Troponin elevated to 0.236 before trending down. BNP more than 30,000. Cardiology was consulted. Repeat EKG showing marked ST depression with T wave inversion lateral leads. Cardiology reconsulted and Echo ordered. Echo showing normal LV size and fxn (EF 65-70%) with moderate wall thickening, Grade I diastolic dysfxn, normal RV, moderate bi-atrial enlargement, mild TR and mild-moderate MR. No significant wall motion abnormalities. EKG changes related to strain? Cardiology did not recommend additional cardiac workup at this time. She was tolerating ASA, Coreg, Lipitor. Patient with persistent nausea/vomiting. She states this is not uncommon for her and takes Xanax prn for nausea. She can not take Zofran due to long QTc. This is a known issue with intermittent flares. 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 We advanced her PPI and added carafate. Nausea better and she is eating better. This symptoms is more chronic and comes and goes. Hypertension was uncontrolled on admission. She was on Procardia, losartan and Coreg prior to admission. Hydralazine added and advanced. BP was still poorly controlled so clonidine added. She did develop cardiac pause so this was ultimately stopped. Terazosin added and losartan changed to irbesartan. Discussed with nephrology. Patient has a chronic anemia: Hemoglobin around 7-8 and no signs of active bleeding. Anemia worsened down to 6.9 and 1 unit PRBC ordered but she had antibodies so did not receive transfusion. Hgb improved on repeat but then back down to Hgb 6.7 and did received 1U PRBC. GI consulted. Gastric polyp previously evaluated by EGD on 01/13/2024 with healing ulcer from resection site. Noninvasive reflux disease/gastritis / esophagitis currently on PPI. Plan for video capsule endoscopy as outpatient. Hematology was consulted and did not feel a bone marrow biopsy was needed. She has anti-Cherry Ab and +ANIVAL but LDH and haptoglobin normal. Repeat Hgb better and remaining stable. Nephrology consulted for End-stage renal disease on hemodialysis Friday. She had generalized weakness and she did well with PT/OT. She overall did well and was able to be discharged home on 03/27/24. Status at Discharge Cognitive/behavioral status at discharge: stable Time Spent with Patient Time attestation: Total time spent providing and/or coordinating discharge services: 36 minutes Time spent: Greater than 30 minutes Exam Narrative: AF 98.1 164/56 50 16 100% ra Gen - NARD Chest - Rt upper chest HD tunneled catheter in situ. bibasilar crackles CV - RRR S1/S2 2/6 systolic murmur USB. Tele showing one 2 sec pause o/w no significant dysrhythmias Abd - Soft, ND, diffusely tender without guarding Ext - No pedal edema. Left UE fistula thrill/bruit. RUE defunct fistula Psych - Nml mood and affect Skin - Warm and dry DS: Data Data Completed and Pending Labs on day of discharge: Labs from last 24 hours 03/27/24 03/27/24 03/26/24 11:49 07:48 19:44 POC Capillary Glucose 135 H 167 H 160 H Methylmalonic Acid 03/26/24 03/23/24 16:24 12:26 POC Capillary Glucose 152 H Methylmalonic Acid 648 H Discharge Plan Discharge Attending physician on discharge: Gurvinder Lopez Consulting providers: Julienne Caceres; Fabian Kathleen; Steve Sood Discharging Clinician: Gurvinder Lopez Anticipated Discharge Date/Time: 03/27/24 14:17 Patient Disposition: Home Health Service Activity: as tolerated Diet: renal Discharge Instructions: Per Care Coordination. Patient has been accepted [facility] for RN, PT, OT RN please fax completed discharge instructions to [phone] Continue CPAP at home with naps, at bedtime and as needed for shortness of breath. Check blood pressure 1 to 2 times a day. Record and bring into your doctor for review. Call your doctor if your blood pressure is greater than 180/110. Continue dialysis in [place] as previously arranged. Take precautions to avoid falls. Rise slowly from a lying or sitting position. Pause before standing or walking. Walk with walker. Contact your doctor or call 911 and come to the Emergency Room if you have fever or other worrisome symptoms. Avoid NSAIDs (ibuprofen, naproxen, Aleve). Tylenol is safe to take. Follow-up with your primary care provider in 1-2 weeks. Please call for appointment. Follow-up with GI at next scheduled appointment. They are arranging an outpatient video capsule endoscopy study. Please call them if you haven't heard from the office in the next 5 days. Follow-up with Cardiology in 2-4 weeks. Please call for an appointment. Follow with kidney doctor when at dialysis. Follow-up with [facility] in 2-4 weeks. Please call for an appointment. Thank you for using [facility] for your health care needs. Patient Instructions: Antibiotic Form Stand Alone Forms: General Discharge Information Follow-up/Referrals: Steve Sood MD [Physician] - Call for Appointment Julienne Caceres MD [Physician] - Other Naate,MD Soto [Primary Care Provider] - Call for Appointment Jairon Reyes MD [Physician] - Call for Appointment Discharge Medications: New irbesartan 150 mg Tablet 300 mg PO QAM Qty: 30 1RF terazosin 5 mg Capsule 5 mg PO HS Qty: 30 1RF hydralazine 100 mg tablet 100 mg PO TIDWM Qty: 90 1RF Continued atorvastatin 20 mg tablet 20 mg PO HS ketoconazole 2 % cream 1 applic TOPICAL DAILY PRN (Reason: groin rash) Rx Instructions: to groin when pt has rash Movantik 25 mg tablet 25 mg PO DAILY tizanidine 4 mg tablet 4 mg PO BID PRN (Reason: Muscle Spasm) allopurinol 100 mg tablet 100 mg PO DAILY alprazolam 0.5 mg tablet 0.5 mg PO QID PRN (Reason: Anxiety) Rx Instructions: also for nausea, zofran avoided due to QT prolongation furosemide 80 mg tablet 80 mg PO DAILY ropinirole 0.5 mg tablet 1 mg PO QAM fluticasone propionate 50 mcg/actuation spray,suspension 1 spray INTRANASAL DAILY PRN (Reason: allergies) lamotrigine 150 mg Tablet 150 mg PO Q12H montelukast 10 mg Tablet 10 mg PO HS levetiracetam 750 mg Tablet 750 mg PO DAILY carvedilol 6.25 mg tablet 6.25 mg PO Q12H levothyroxine 50 mcg tablet 50 mcg PO DAILY docusate sodium 100 mg capsule 100 mg PO Q12H folic acid 1 mg tablet 1 mg PO DAILY albuterol sulfate 90 mcg/actuation HFA aerosol inhaler 2 puff INHALATION Q6H PRN (Reason: Shortness Of Breath Or Wheezing) Trintellix 20 mg tablet 20 mg PO DAILY anastrozole 1 mg tablet 1 mg PO DAILY amantadine HCl 100 mg capsule 100 mg PO WEEKLY Rx Instructions: on friday oxycodone-acetaminophen 7.5-325 mg tablet 1 tablet PO Q4H PRN (Reason: Pain (Scale Score 4-6)) sevelamer carbonate 800 mg tablet 2,400 mg PO TIDWM insulin glargine U-300 conc [Toujeo Max U-300 SoloStar] 300 unit/mL (3 mL) insulin pen 6 unit SUBCUT DAILY polyethylene glycol 3350 [Miralax] 17 gram powder in packet 17 g PO BID PRN (Reason: Constipation) cholecalciferol (vitamin D3) 125 mcg (5,000 unit) Tablet 5,000 unit PO DAILY ropinirole 0.5 mg tablet 1.5 mg PO HS nifedipine 90 mg tablet extended release 90 mg PO HS pantoprazole 40 mg tablet,delayed release (DR/EC) 40 mg PO BID Discontinued losartan 50 mg tablet 100 mg PO DAILY Date of admission: 03/20/24 01:02 Primary Care Provider: LizzethSoto Admitting Provider: Maddy Greer V. Attending physician on admission: Maddy Greer V. Condition: Stable Hospitalist MIPS Heart Failure (Exclusion) Patient has history of Heart Transplant or Left Ventricular Assistive Device?: No IF YES, STOP HERE Heart Failure (Qualifier) Patient has current or prior documentation of LVEF less than or equal to 40%, or mod/servere depressed LVSF?: No IF NO, STOP HERE
--- NOTE | 2024-03-29 07:53 | PC.NURSE ---
MMA is elevated at 648. Haptoglobin is WNL at 121. Dr. Jessica whyte.
== END 2024-03-26 16:20 | disposition home health service (06) | DRG 193 ==
LOC: ANHED 03-20 01:00 → ANH3MEDSUR 03-20 01:45
PROVIDERS: Internal Medicine; Internal Medicine Hematology & Oncology; Internal Medicine Nephrology; Admitting Provider Internal Medicine; Emergency Provider Emergency Medicine; PCP Internal Medicine; Visit Provider Internal Medicine
DX: J18.9 Pneumonia, unspecified organism (principal); N18.6 End stage renal disease; I12.0 Hypertensive chronic kidney disease with stage 5 chronic kidney disease or end stage renal disease; Z99.2 Dependence on renal dialysis; D63.1 Anemia in chronic kidney disease; E11.22 Type 2 diabetes mellitus with diabetic chronic kidney disease; E11.42 Type 2 diabetes mellitus with diabetic polyneuropathy; F31.9 Bipolar disorder, unspecified; F41.1 Generalized anxiety disorder; G47.33 Obstructive sleep apnea (adult) (pediatric); I25.10 Atherosclerotic heart disease of native coronary artery without angina pectoris; I48.0 Paroxysmal atrial fibrillation; K31.84 Gastroparesis; Z87.891 Personal history of nicotine dependence; Z85.3 Personal history of malignant neoplasm of breast; Z90.49 Acquired absence of other specified parts of digestive tract; Z98.41 Cataract extraction status, right eye; Z98.42 Cataract extraction status, left eye; Z96.1 Presence of intraocular lens; Z79.4 Long term (current) use of insulin
CPT/HCPCS: 36415; 36430; 71046; 80053; 80069; 82607; 82728; 82746; 82948; 83010; 83540; 83550; 83615; 83735; 83880; 83921; 84238; 84484; 85025; 85027; 85055; 86706; 86850; 86870; 86880; 86900; 86901; 86902; 86905; 86922; 86971; 86972; 87040; 87070; 87205; 87340; 87641; 93005; 93306; 94640; 96365; 97110; 97116; 97161; 97165; 97530; 97535; 99285; A9270; G0257; J0360; J0456; J0696; J1644; J1756; J1815; J2270; J7030; P9016; Q4081